=== PATIENT | female | born 1950 | race Caucasian/White ===

== ENCOUNTER → 2021-03-19 | Outpatient (CLI) | payer MEDICARE, SELFPAY ==
[2015-06-16 08:20] VITALS: BMI 34.0
== END | disposition home or self-care (01) ==
PROVIDERS: PCP Family Medicine; Visit Provider Obstetrics & Gynecology
DX: R30.0 Dysuria (principal); R31.9 Hematuria, unspecified
CPT/HCPCS: 87077; 87086; 87088; 87186

== ENCOUNTER → 2021-04-15 | Outpatient (CLI) | payer MEDICARE, SELFPAY | END | disposition home or self-care (01) | LOC: LABSPEC 13:36 | PROVIDERS: Visit Provider Obstetrics & Gynecology | DX: N39.0 Urinary tract infection, site not specified (principal) | CPT/HCPCS: 87086; 87088 ==

== ENCOUNTER → 2021-10-16 13:27 | Outpatient (CLI) | payer MEDICARE, SELFPAY ==
--- NOTE | 2021-10-16 13:39 | STEWCON_ITS ---
Reason For Study: Pre-op. Multiple cardiac risk factors, hypertension Stress Results Protocol: Dobtuamine Stress Echo Maximum Predicted HR: 147 bpm Target HR: 125 bpm % Maximum Predicted HR: 105 % Heart Stage Duration Rate BP Dose Comment (mm:ss) (bpm) patient denies chest pain, 5ml total definity given during Baseline 63 141/78 this test Stage 1 3:00 65 166/8710.00patient denies chest pain Stage 2 7:12 80 165/8020.00patient denies chest pain Stage 3 3:00 86 182/7330.00patient denies chest pain atropine 0.5ml given. Patient denies chest pain or Stage 4 8:53 155 142/8940.00palpitations recovery 88 137/71 patient denies any chest pain or palpitations Stress Duration: 22:05 mm:ss Maximum Stress HR: 155 bpm Baseline Echocardiogram Findings Stress Echo Wall motion Data Resting WM Intermediate WM Stress WM ECHO/Stress Test Echo W/Contrast Interpretation Summary Dobutamine stress echocardiogram for preop cardiac evaluation. Stress protocol: Resting EKG demonstrates normal sinus rhythm with a rate of 63 bpm normal inter vals are noted resting blood pressure is 144/96 mmHg. Dobutamine was infused starting at 10 mc g/kg/min increasing in 3-minute aliquots to a peak of 40 mcg/kg/min. 0.5 mg of atropine was given t o augment heart rate. The patient maintained sinus rhythm throughout the recording. At rest there wer e no ST or T wave changes noted to suggest ischemia. At peak infusion there was a 10 beat run of a wide-complex tachycardia noted followed by a 4 beat run. The above was asymptomatic. The ines t was terminated and there were occasional short runs of nonsustained wide-complex tach arrhythmia n oted. There were no obvious EKG changes noted to suggest ischemia. The peak blood pressure was 182/ 73 mmHg. Dobutamine stress echocardiogram. The resting echocardiogram was performed with Definity enhancement and demonstrated preserved left ventricular ejection fraction estimated at 60%. At low-dose and at peak dose there was augmentation and contractility with improvement in all segm ents with no new wall motion abnormalities noted to suggest ischemia. During recovery the left ventri cular systolic function was also noted to be normal. The peak ejection fraction was 70%. Conclusion: Normal dobutamine stress echocardiogram with no evidence of ischemia. Nonsustained ventricular tachyarrhythmia noted self terminating. Ordering Physician: Cayden Reyes Referring Physician: Cayden Reyes Performed By: Delmar Mai RCS
== END ==
PROVIDERS: PCP Student in an Organized Health Care Education/Training Program; Referring Provider Student in an Organized Health Care Education/Training Program; Visit Provider Student in an Organized Health Care Education/Training Program
DX: Z01.818 Encounter for other preprocedural examination (principal); I10 Essential (primary) hypertension; R94.31 Abnormal electrocardiogram [ECG] [EKG]
CPT/HCPCS: 93017; 93350; J7040; Q9957; A4216; C8928; J3490

== ENCOUNTER → 2021-11-05 11:14 | Outpatient (CLI) | payer MEDICARE, SELFPAY ==
--- NOTE | 2021-11-05 | CYSPIN_PTH ---
PATIENT: SURINDER RASHEED LOC: [facility] U#:[id number] AGE/SX: 75/F ROOM: RE11/05/[address]: Dr. Amy Keller MD : 1950 BED: DIS: SPEC #: [id number] RECD: 11/06/21 08:25 STATUS: ESTHER HORACIO #: [id number] ROMARIO: 11/05/21 00:[address]: Amy Keller DEPT: CYTOLOGY RECD BY: Trenton Sosa ENTERED: 11/06/21 08:26 SP TYPE: CYSPIN FL OTHR DR: Dr. Cayden Reyes DO Tissues: Urine Procedures: Pap Stain (control) Special Stain Group II Cytospin Fluid HEADER OPERATION: Not noted PRE-OP DIAGNOSIS: Gross hematuria TISSUE SUBMITTED: Urine for cytology DIAGNOSIS CYTOLOGY Urine for cytology (cytospin): Atypical urothelial cells present. AM:loree 11/06/2021 CYTOLOGY STUDY Slides are reviewed. CYTOLOGY GROSS Received is 15 ml of red cloudy fluid labeled with the patient's name and and designated per the requisition as urine. Submitted for cytology preparation. / loree 11/05/2021 TC:? CPT: 08588
[2021-11-05 15:05] LABS: Hematocrit 36.3 % (37-47); Hemoglobin 12.1 g/dL (12.0-15.0); Mean Corp Hgb Conc 33.3 g/dL (32-36); Mean Corpuscular Hgb 32.1 pg (27.0-32.0); Mean Corpuscular Volume 96.3 fL (81-99); Mean Platelet Vol. 9.9 fl (6.2-12.0); Platelet Count 238 K/mm3 (150-450); RBC Distribution Width CV 12.7 % (11.6-14.6); RBC Distribution Width SD 44.9 fl (35.1-43.9); Red Blood Count 3.77 M/mm3 (4.2-5.4); White Blood Count 4.4 K/mm3 (4.4-11.0)
[2021-11-05 15:27] LABS: Anion Gap 8 (5-15); BUN 8 mg/dL (7-18); BUN/Creat Ratio 11.3 RATIO (10-20); Calcium,Total 9.6 mg/dL (8.5-10.1); Chloride 104 mmol/L (98-107); Creatinine, Serum 0.71 mg/dL (0.55-1.02); EST Glomerular Filtration Rate 86 mL/min (>60); Est Glom Filt Rate - Afr Amer 104 mL/min (>60); Glucose 97 mg/dL (74-106); Potassium 3.5 mmol/L (3.5-5.1); Sodium Level 139 mmol/L (136-145)
[2021-11-05 16:13] LABS: Cytology, Body Fluid / CSF SEE PATHOLOGY REPORT
== END ==
PROVIDERS: PCP Student in an Organized Health Care Education/Training Program; Referring Provider Urology; Visit Provider Urology
DX: R31.0 Gross hematuria (principal)
CPT/HCPCS: 36415; 80048; 85027; 88108; 88313

== ENCOUNTER 2022-01-07 14:12 | Outpatient (CLI) | payer MEDICARE, SELFPAY ==
--- NOTE | 2022-01-07 14:17 | US_ITS ---
History: GROSS HEMATURIA EXAMINATION: US Kidney(s) complete (eg, kidneys and bladder) TECHNIQUE: Hong scale and color doppler images were obtained of the kidneys. COMPARISON: None FINDINGS: RIGHT KIDNEY: 10.8 cm in length. Renal stones and cysts are noted. A 4 cm cyst within the upper pole as well as 2 cm interpole cyst. No hydronephrosis. LEFT KIDNEY: 10.6 cm in length. Multiple stones without hydronephrosis. 15 and 12 mm cysts within the interpole region of the kidney. URINARY BLADDER: Contracted US/Kidney and Bladder IMPRESSION: Bilateral nephrolithiasis. Bilateral renal cysts. at 1546 Reported and signed by: Masood Gutierrez MD Electronically Signed: Masood Gutierrez MD at 15:44 EST ,
== END 2022-01-07 23:59 | disposition home or self-care (01) ==
LOC: US 14:13
PROVIDERS: PCP Student in an Organized Health Care Education/Training Program; Referring Provider Urology; Visit Provider Urology
DX: R31.0 Gross hematuria (principal); R93.429 Abnormal radiologic findings on diagnostic imaging of unspecified kidney
CPT/HCPCS: 76770

== ENCOUNTER 2022-01-13 14:47 | Outpatient (CLI) | payer MEDICARE, SELFPAY ==
--- NOTE | 2022-01-13 14:53 | CT_ITS ---
STUDY: CT ABDOMEN AND PELVIS WITH AND WITHOUT CONTRAST REASON FOR EXAM: Female, 72 years old. Hematuria. RADIATION DOSAGE (If Supplied By Facility): CTDIvol = ( 17.31 ) mGy, DLP = ( 2135.55 ) mGycm TECHNIQUE: Transaxial images were obtained from the dome of the diaphragm to the symphysis pubis without oral contrast. IV 100mL Isovue-300 was administered. Sagittal and coronal images were reconstructed. Individualized dose optimization techniques were used for this CT. COMPARISON: Retroperitoneal ultrasound, 01/07/2022. FINDINGS: The visualized lung bases are unremarkable. The visualized portions of the heart are within normal limits. Normal liver. Normal gallbladder and extrahepatic biliary system. Normal spleen. Normal pancreas. Normal bilateral adrenal glands. There is a 4 x 3.1 x 3.6 cm cyst in the upper pole. There is exophytic 1.8 cm cyst in the mid cortex. There is a staghorn calculus in the renal pelvis extending into the lower pole calyces measuring 4.7 x 1.7 x 0.9 cm. Additionally other calcifications are seen in mid and lower pole calyces. There is no hydronephrosis. Normal visualized right ureter. The left kidney is of normal size and cortex. There is a 1.2 x 1.2 x 1.6 cm calcification in the renal pelvis. Smaller calcifications are seen in the lower pole calyx. No hydronephrosis. Normal left ureter Normal visualized stomach. Normal small intestine. Normal colon. The appendix is visualized and appears normal. There is diffuse atherosclerotic calcification of the abdominal aorta, without a demonstrated aneurysm. Normal inferior vena cava. Normal retroperitoneum. Normal urinary bladder. Normal vaginal cough. There is phlebolith in the pelvis without lymphadenopathy. Minimal free fluid in the posterior cul-de-sac. No free air is seen within the peritoneal cavity. Normal abdominal wall. Minimal degenerative changes of the lumbar spine. CT/CT Abd/Pelvis W/WO Contrast IMPRESSION: 1. Bilateral large renal calculi without hydronephrosis. There is no evidence of ureteral or urinary bladder abnormality. 2. Right renal cysts. 3. Evidence of hysterectomy. 4. Otherwise normal CT of the abdomen and pelvis. Electronically Signed: Jeet Alford DO at 16:12 EST ,
[2022-01-13 15:26] LABS: CREATININE FINGERSTICK 1.1 mg/dL (0.55-1.02)
== END 2022-01-13 23:59 | disposition home or self-care (01) ==
LOC: CT 14:48
PROVIDERS: PCP Student in an Organized Health Care Education/Training Program; Referring Provider Urology; Visit Provider Urology
DX: R31.9 Hematuria, unspecified (principal); N20.0 Calculus of kidney
CPT/HCPCS: 74178; Q9967

== ENCOUNTER 2022-03-05 08:04 | Outpatient (CLI) | payer MEDICARE, SELFPAY ==
--- NOTE | 2022-03-05 08:06 | ECHOD_ITS ---
Reason For Study: Arrhythmia Procedure This was a 2D Doppler, Color Flow transthoracic echocardiogram. Very technically difficult study due to patients body habitus. The study was technically difficult. Exam performed in department. Left Ventricle Normal LV size. Left ventricular systolic function is normal. The estimated ejection fraction is 60 %. No evidence for diastolic dysfunction. No regional wall motion abnormalities noted. Right Ventricle Normal RV size. Normal systolic function. Atria Normal left atrium. Normal right atrium. No doppler evidence for ASD. Mitral Valve There is mild mitral annular calcification. Extension of the mitral annular calcification on the base of the posterior mitral valve leaflet. Mild-Moderate (1-2+) mitral valve insufficiency. Tricuspid Valve Normal tricuspid valve. Mild tricuspid valve insufficiency. Right ventricular systolic pressure estimated to be 31 mmHg. Aortic Valve Trisinus/trileaflet aortic valve. Mild focal aortic valve calcification. Mild (1+) aortic valve insufficiency. Pulmonic Valve The pulmonic valve is not well visualized. Great Vessels Normal sized aortic root. Pericardium/Pleural No pericardial effusion. MMode/2D Measurements & Calculations LVIDd: 5.3 cm IVSd: 0.93 cm Ao root diam: 3.4 cm LVIDs: 3.7 cm LVPWd: 1.1 cm RVDd: 3.4 cm FS: 30.2 % LAV(MOD-sp2): 61.1 ml Time Measurements MV dec time: 0.28 sec Doppler Measurements & Calculations MV E max cuate: 70.1 cm/sec Lat Peak E' Cuate: 6.8 cm/sec Med Peak E' Cuate: 3.8 cm/sec MV A max cuate: 98.1 cm/sec E/E' lat: 10.2 E/E' med: 18.4 MV E/A: 0.71 MV V2 max: 101.1 cm/sec MV P1/2t max cuate: 72.2 cm/sec Ao V2 max: 103.6 cm/sec MV max P.1 mmHg MV P1/2t: 127.1 msec Ao max P.3 mmHg MV V2 mean: 52.6 cm/sec MV mean P.3 mmHg MV dec slope: 166.4 cm/sec2 MV V2 VTI: 29.6 cm MVA(P1/2t): 1.7 cm2 LV V1 max: 79.6 cm/sec MR max cuate: 519.4 cm/sec PA V2 max: 93.4 cm/sec LV V1 max P.5 mmHg MR max P.9 mmHg TR max cuate: 265.8 cm/sec TR max P.3 mmHg ECHO/Echo Complete Interpretation Summary The study was technically difficult. Left ventricular systolic function is normal. The estimated ejection fraction is 60 %. There is mild mitral annular calcification. Extension of the mitral annular calcification on the base of the posterior mitr al valve leaflet. Mild-Moderate (1-2+) mitral valve insufficiency. Mild tricuspid valve insufficiency. Mild focal aortic valve calcification. Mild (1+) aortic valve insufficiency. Right ventricular systolic pressure estimated to be 31 mmHg. No evidence for diastolic dysfunction. Ordering Physician: Yunior Gaviria Referring Physician: Cayden Reyes Performed By: Delmar Mai RCS
== END 2022-03-05 23:59 | disposition home or self-care (01) ==
PROVIDERS: PCP Student in an Organized Health Care Education/Training Program; Referring Provider Internal Medicine Cardiovascular Disease; Visit Provider Internal Medicine Cardiovascular Disease
DX: Z01.810 Encounter for preprocedural cardiovascular examination (principal); I10 Essential (primary) hypertension; I49.9 Cardiac arrhythmia, unspecified; E78.2 Mixed hyperlipidemia; Z82.49 Family history of ischemic heart disease and other diseases of the circulatory system
CPT/HCPCS: 93225; 93226; 93306

== ENCOUNTER 2022-12-22 16:12 | Inpatient (IN) | payer MEDICARE, SELFPAY ==
[2022-12-22 16:17] VITALS: BP 112/76; PULSE 71; RESP 18; TEMP 36.6; O2SAT 96; BMI 23.8
[2022-12-22 18:00] VITALS: RESP 16
[2022-12-22] MEDS: APIXABAN 2.5 MG TABLET (WCH) PO (18:14)
--- NOTE | 2022-12-22 19:01 | HP.PCM_ITS ---
HPI - General General Date of Admission: 12/22/22 Date of Service: 12/22/22 Chief Complaint: Here for rehabilitation. HPI Narrative SURINDER RASHEED, is a 72 Female who presents with followin12/20/2022 Dr. Nicholson performed robot assisted right total knee arthroplasty at [facility]. 12/22/2022 Admit to TCU with debility, here for rehabilitation, strengthening, prior to discharge home alone. Her son Rishi is present in room during my visit. [facility] Medical History (Updated 12/22/22 @ 19:[address] Shant Guevara MD) Cardiac dysrhythmia Essential hypertension Family history of coronary artery disease Hypothyroidism Knee osteoarthritis Mixed hyperlipidemia Valvular heart disease Home Medications lorazepam 0.5 mg tablet 0.5 mg PO BID anxiety 06/10/15 [History Last Taken Unknown] acetaminophen 325 mg tablet 325 mg PO ONCE PRN 12/30/21 [History Last Taken Unknown] levothyroxine 112 mcg tablet 112 mcg PO DAILY thyroid 12/30/21 [History Last Taken Unknown] losartan 25 mg tablet 50 mg PO DAILY BP 12/30/21 [History Last Taken Unknown] ondansetron 4 mg disintegrating tablet 4 mg PO Q6H PRN nausea and vomiting 12/30/21 [History Last Taken Unknown] atenolol 25 mg tablet 25 mg PO DAILY BP 06/10/22 [History Last Taken Unknown] amlodipine 5 mg tablet 5 mg PO DAILY BP 12/22/22 [History Last Taken Unknown] apixaban 2.5 mg tablet 2.5 mg PO BID blood thinner 12/22/22 [History Last Taken Unknown] tramadol 50 mg tablet 50 mg PO Q6H PRN PRN Pain 12/22/22 [History Last Taken Unknown] Allergy/AdvReac Type Severity Reaction Status Date / Time prednisone Allergy Rash Verified 12/15/22 11:24 cyclobenzaprine AdvReac Unknown Irregular Verified 12/15/22 11:24 [From Flexeril] Heartbeat lisinopril AdvReac Unknown Cough Verified 12/15/22 11:24 hydrocodone bitartrate AdvReac Other Verified 12/15/22 11:24 [From Vicodin] promethazine AdvReac Other Verified 12/15/22 11:24 Yupgkdh-GYE-UwL Reductase AdvReac Pain in Verified 12/15/22 11:24 Inhibitor joints [Gunrujs-Pnv-Ija Reductase Inhibitor] Family History Father Heart disease Brother Heart disease Surgical History (Updated 12/22/22 @ 19:[address] Shant Guevara MD) H/O lithotripsy History of hysterectomy History of total right knee replacement Social History (Updated 12/22/22 @ 19:[address] Shant Guevara MD) household members: none Smoking Status: Never smoker alcohol intake: never substance use type: does not use caffeine: Yes ROS Constitutional Constitutional: Denies chills, fever(s) or weight gain ENT HEENT: Denies headache(s), nasal congestion or nasal discharge Cardiovascular Cardiovascular: Denies chest pain or palpitations Respiratory/Chest Respiratory/Chest: Denies cough, excessive phlegm production or shortness of breath with exertion Gastrointestinal Gastrointestinal: Denies abdominal pain, nausea or vomiting Genitourinary Genitourinary: Denies dysuria Musculoskeletal Musculoskeletal: Denies joint pain or joint swelling Integumentary Integumentary: Denies rash or wounds Neurologic Neurologic: Denies focal weakness, numbness or tingling Psychiatric Psychiatric: Denies anxiety, auditory hallucinations, depression, homicidal ideation or suicidal ideation Vital Signs Vital Signs Vital Signs: 12/22/22 16:17 12/22/22 16:17 Temperature 97.9 F 97.9 F Temperature Source Oral Temporal Pulse Rate 71 71 Respiratory Rate 18 18 Blood Pressure 112/76 112/76 Blood Pressure Mean 88 88 Blood Pressure Source Monitor Monitor Blood Pressure Position Sitting Sitting Blood Pressure Location Left Arm Left Arm Pulse Ox 96 Oxygen Delivery Method Room Air Room Air Physical Exam Const alert General Appearance: cooperative HEENT normocephalic Eyes PERRL and EOMs intact bilaterally Neck supple, no JVD and no carotid bruits Resp normal respiratory effort, normal air movement and clear to auscultation bilaterally Cardio regular rate and regular rhythm GI normal to inspection, nondistended, normoactive bowel sounds, non-tender and non-distended Extremity normal capillary refill General Extremity: Negative for edema Skin no rashes or lesions noted General Skin Exam: no breakdown Psych affect normal Appearance: appropriate Assessment & Plan Assessment/Plan (1) Debility: (2) Status post total right knee replacement: (3) Anxiety: (4) Hypertension: (5) Hypothyroidism: PLAN: Plan 72 year old female with below past medical history hospitalized for robot assisted right total knee arthroplasty 12/20/[address] Nicholson, admitted to TCU with debility, here for rehabilitation, strengthening, prior to discharge home alone. * Debility - PT/OT. * Pain - Tylenol 1000mg q8, Tramadol 50mg q6h prn pain (4-5), Oxycodone 5mg q4h prn pain (6-10). * Bowel - Miralax 17gm daily, senna/colace 2 tablets bid, MOM 30ml po x 1 prn. * Adult immunization - Administer pneumonia vaccine, covid19 vaccine, flu vaccine as appropriate. * DVT prophylaxis - Eliquis 2.5mg bid thru 01/01/2023. * Hypertension - Atenolol 25mg daily, Losartan 50mg daily. * GI prophylaxis - Lactobacillus 1 tablet bid. * Hypothyroidism - Levothyroxine 112mcg daily. * Anxiety - Lorazepam 0.5mg bid prn, stable chronic mcc use, GDR not recommended.
[2022-12-22] MEDS: traMADol 50 MG Tablet PO (19:03)
[2022-12-22] MEDS: LORazepam 0.5 MG Tablet PO (19:47)
[2022-12-22] MEDS: Acetaminophen 500 MG Tablet 1000 MG PO (19:48)
[2022-12-22] MEDS: Senna/Docusate Sodium 1 Tablet 2 TABLET PO (19:48)
[2022-12-23] MEDS: Acetaminophen 500 MG Tablet 1000 MG PO ×3 (05:33→21:13)
[2022-12-23] MEDS: Polyethylene Glycol 3350 17 GM PACKET PO (05:33)
[2022-12-23] MEDS: APIXABAN 2.5 MG TABLET (WCH) PO ×2 (05:34→17:48)
[2022-12-23] MEDS: Senna/Docusate Sodium 1 Tablet 2 TABLET PO ×2 (05:34→17:48)
[2022-12-23] MEDS: Losartan Potassium 50 MG Tablet PO (05:36)
[2022-12-23] MEDS: Atenolol 25 MG Tablet PO (05:36)
[2022-12-23] MEDS: Levothyroxine 112 MCG Tablet PO (05:37)
[2022-12-23] MEDS: amLODIPine 5 MG Tablet PO (05:37)
[2022-12-23 06:15] LABS: Absolute Lymphocyte Count 2.18 X10^3/uL (0.83-4.51); Absolute Neutrophil Count 3.3 X10^3/uL (2.0-7.7); Basophil# 0.04 X10^3/uL; Basophil% 0.6 % (0-1); Eosinophil# 0.08 X10^3/uL; Eosinophils% 1.3 % (0-5); Hematocrit 29.2 % (37-47); Hemoglobin 9.8 g/dL (12.0-15.0); Lymphocyte # 2.18 X10^3/ul (0.83-4.51); Lymphocyte % 34.8 % (19-41); Mean Corp Hgb Conc 33.6 g/dL (32-36); Mean Corpuscular Hgb 32.8 pg (27.0-32.0); Mean Corpuscular Volume 97.7 fL (81-99); Monocyte# 0.64 X10^3/uL; Monocyte% 10.2 % (0-10); NRBC Flagged by Analyzer 0 % (0-5); Neutrophil # 3.31 X10^3/uL (2.7-7.7); Neutrophil % 52.8 % (47-70); Platelet Count 213 K/mm3 (150-450); RBC Distribution Width CV 12.8 % (11.6-14.6); RBC Distribution Width SD 45.5 fl (35.1-43.9); Red Blood Count 2.99 M/mm3 (4.2-5.4); White Blood Count 6.3 K/mm3 (4.4-11.0)
[2022-12-23 06:46] LABS: Anion Gap 10 (5-15); BUN 19 mg/dL (7-18); BUN/Creat Ratio 29.8 RATIO (10-20); Calcium,Total 8.6 mg/dL (8.5-10.1); Chloride 104 mmol/L (98-107); Creatinine, Serum 0.64 mg/dL (0.55-1.02); EST Glomerular Filtration Rate 97 mL/min (>60); Est Glom Filt Rate - Afr Amer 117 mL/min (>60); Estimated Creatinine Clearance 42.62 ml/min; Glucose 94 mg/dL (74-106); Potassium 2.8 mmol/L (3.5-5.1); Sodium Level 138 mmol/L (136-145)
[2022-12-23] MEDS: Potassium Chloride Oral Tablet 20 MEQ 40 MEQ PO (08:27)
[2022-12-23 10:00] VITALS: PULSE 84; RESP 16
--- NOTE | 2022-12-23 10:28 | PCM.PN.DRR ---
TCU RX Drug Regimen Review Subjective: 72 YOF admitted to TCU 12/22/22 after total R-knee surgery at an outside facility. Admitted to TCU for rehabilitation and strengthening prior to discharge home where the patient resides alone. Objective: Allergies prednisone Allergy (Verified 12/15/22 11:24) Rash cyclobenzaprine [From Flexeril] Adverse Reaction (Unknown, Verified 12/15/22 11:24) Irregular Heartbeat lisinopril Adverse Reaction (Unknown, Verified 12/15/22 11:24) Cough hydrocodone bitartrate [From Vicodin] Adverse Reaction (Verified 12/15/22 11:24) Other FLUSHED AND HOT promethazine Adverse Reaction (Verified 12/15/22 11:24) Other PALPITATIONS, FELT LIMP Xgqezrz-MCF-YfP Reductase Inhibitor [Yulvnog-Dgt-Vsi Reductase Inhibitor] Adverse Reaction (Verified 12/15/22 11:24) Pain in joints Current Medications Generic Name Dose Route Start Last Admin Trade Name Freq PRN Reason Stop Dose Admin Acetaminophen 1,000 mg 12/22/22 22:00 12/23/22 05:33 Acetaminophen 500 Mg Tablet PO 1,000 mg Q8 BRENDA Administration Amlodipine Besylate 5 mg 12/23/22 06:00 12/23/22 05:37 Amlodipine 5 Mg Tablet PO 5 mg DAILY BRENDA Administration Apixaban 2.5 mg 12/22/22 18:00 12/23/22 05:34 Apixaban 2.5 Mg Tablet ([facility]) PO 01/01/23 23:59 2.5 mg BID BRENDA Administration Atenolol 25 mg 12/23/22 06:00 12/23/22 05:36 Atenolol 25 Mg Tablet PO 25 mg DAILY BRENDA Administration Lactobacillus Acidophilus 1 tablet 12/22/22 18:00 12/23/22 05:37 Lactobacillus Acidophilus PO 1 tablet BID BRENDA Administration Levothyroxine Sodium 112 mcg 12/23/22 06:00 12/23/22 05:37 Levothyroxine 112 Mcg Tablet PO 112 mcg DAILY BRENDA Administration Lorazepam 0.5 mg 12/22/22 16:49 12/22/22 19:47 Lorazepam 0.5 Mg Tablet PO 0.5 mg BID PRN PRN Administration ANXIETY Losartan Potassium 50 mg 12/23/22 06:00 12/23/22 05:36 Losartan Potassium 50 Mg Tablet PO 50 mg DAILY BRENDA Administration Magnesium Hydroxide 30 ml 12/22/22 19:12 Magnesium Hydroxide 30 Ml Udc PO X1 PRN Constipation Polyethylene Glycol 17 gm 12/23/22 06:00 12/23/22 05:33 Polyethylene Glycol 3350 17 Gm Packet PO 17 gm DAILY BRENDA Administration Potassium Chloride 20 meq 12/23/22 08:00 12/23/22 08:25 Potassium Chloride Oral Tablet 20 Meq PO Not Given DAILYCM BRENDA Senna/Docusate Sodium 2 tablet 12/22/22 20:00 12/23/22 05:34 Senna/Docusate Sodium 1 Tablet PO 2 tablet BID BRENDA Administration Tramadol HCl 50 mg 12/22/22 19:13 Tramadol 50 Mg Tablet PO Q6H PRN PRN Pain Score 1-10 Tuberculin PPD 0.1 ml 12/30/22 10:00 Tuberculin,Purif.Prot.Deriv. 50 Tu/Ml Vial ID 12/30/22 10:01 X1 ONE Problem List (Last Reviewed 12/22/22 @ 19:[address] Shant Guevara MD) Hypothyroidism (Acute) Hypertension (Chronic) Anxiety (Acute) Status post total right knee replacement (Acute) Debility (Acute) Vital Signs Temp Pulse Resp BP Pulse Ox O2 Del Method 97.9 F 71 16 112/76 96 Room Air 12/22/22 16:17 12/22/22 16:17 12/22/22 18:00 12/22/22 16:17 12/22/22 16:17 12/22/22 18:00 Oxygen Delivery Method Room Air Weight: 62.959 kg Body Mass Index (BMI) 23.8 Sodium 138 mmol/L (136-145) 12/23/22 05:19 Potassium 2.8 mmol/L (3.5-5.1) L 12/23/22 05:19 Chloride 104 mmol/L (98-107) 12/23/22 05:19 Carbon Dioxide 24.0 mmol/L (21.0-32.0) 12/23/22 05:19 Anion Gap 10 (5-15) 12/23/22 05:19 BUN 19 mg/dL (7-18) H 12/23/22 05:19 Creatinine 0.64 mg/dL (0.55-1.02) 12/23/22 05:19 Est GFR (MDRD) Af Amer 117 mL/min (>60) 12/23/22 05:19 Est GFR (MDRD) Non-Af 97 mL/min (>60) 12/23/22 05:19 BUN/Creatinine Ratio 29.8 RATIO (10-20) H 12/23/22 05:19 Glucose 94 mg/dL (74-106) 12/23/22 05:19 Assessment/Plan: 1. Pain: Tylenol 1000mg PO Q8h, Tramadol 50mg PO Q6h PRN Pain 1-10. Please continue to monitor for increased/decreased S/S pain, PRN medication usage, oversedation with PRN medication use, renal function. - To date, the patient has not had any PRN medication doses. It appears that the patient's pain control is adequate at this time. 2. DVT Prophylaxis S/P recent surgery: Eliquis 2.5mg PO BID thru 01/01/23. Please continue to monitor H/H (last done 12/23), S/S bleeding/bruising, S/S blood clot given recent surgery. 3. Hypokalemia (K= 2.8 on 12/23): K-Dur 20mEq PO DailyCM. Please continue to monitor K levels and replace as clinically indicated. Please continue to monitor for stomach upset, nausea/vomiting. 4. Hypertension: Norvasc 5mg PO Daily, Atenolol 25mg PO Daily, Losartan 50mg PO daily. Please continue to monitor BP (112/76), pulse (71), renal function (stable), electrolytes. 5. Hypothyroidism: Synthroid 112mcg PO daily. Please continue to monitor Thyroid function, S/S hypothyroidism. Please consider obtain TSH panel on patient, as none is on file upon EMR review, thank you. 6. General Wellness: Acidophilus 1 tab PO BID. 7. Bowel: Miralax 17g PO daily, Senna/Docusate 2 tab PO BID, MOM 30mL PO x1. Please continue to monitor for increased/decreased constipation and/or diarrhea. Assessment/Plan for indications treated with psychotropic medications: 1. Anxiety: Lorazepam 0.5mg PO BID PRN. Please continue to monitor for oversedation, respiratory depression with use. - Of note; pt was initially on medication BID scheduled, now ordered BID PRN. Will continue to monitor use. Medical chart and medication regimen reviewed. The following medication irregularities or issues were identified: 1. Hypothyroidism: Synthroid 112mcg PO daily. Please consider obtain TSH panel on patient, as none is on file upon EMR review, thank you. Date of Note:: 12/23/22
[2022-12-23] MEDS: Tuberculin,Purif.prot.deriv. 50 TU/ML Vial 0.1 ML ID (10:30)
--- NOTE | 2022-12-23 10:40 | NURSING ---
Visual Merchandising Specialist Note; Activity Asset: Alicia Lee is independent in her choice of daily activities. She will watch tv, read, work on word puzzles and visit w/family, friends and clergy.
--- NOTE | 2022-12-23 10:47 | CASEMGMT ---
Social Work Met with patient to complete initial assessment. Introduced self and role. Verified/updated contacts. Discussed code status and MOLST form. MOLST placed in Dr folder. Educated to Count includes the [facility] insurance with [employer] 12/29 and continued stay is not guaranteed with each review. Pt's goal is to return home living at [facility], but would be interested in moving to [place] in the future. Pt is agreeable to have son bring in copy of advanced directives. SW to continue to follow for DC planning. Giselle Joseph, PAPERHANGER SUPERVISOR PASSENGER RATE CLERK
--- NOTE | 2022-12-23 13:00 | DS.PCM_ITS ---
Providers Date of Admission: 12/22/22 Primary Care Physician: Dr. Cayden Reyes DO Reason For Visit: R TOTAL KNEE Diagnosis Discharge Diagnosis (1) Debility: Status: Acute Code(s): R53.81 - Other malaise (2) Status post total right knee replacement: Status: Acute Code(s): Z96.651 - Presence of right artificial knee joint (3) Anxiety: Status: Acute Code(s): F41.9 - Anxiety disorder, unspecified (4) Hypertension: Status: Chronic Code(s): I10 - Essential (primary) hypertension (5) Hypothyroidism: Status: Acute Code(s): E03.9 - Hypothyroidism, unspecified Plan 72 year old female with below past medical history hospitalized for robot assisted right total knee arthroplasty 12/20/[address] Nicholson, admitted to TCU with debility, here for rehabilitation, strengthening, prior to discharge home alone. * Debility - PT/OT. * Pain - Tylenol 1000mg q8, Tramadol 50mg q6h prn pain (4-5), Oxycodone 5mg q4h prn pain (6-10). * Bowel - Miralax 17gm daily, senna/colace 2 tablets bid, MOM 30ml po x 1 prn. * Adult immunization - Administer pneumonia vaccine, covid19 vaccine, flu vaccine as appropriate. * DVT prophylaxis - Eliquis 2.5mg bid thru 01/01/2023. * Hypertension - Atenolol 25mg daily, Losartan 50mg daily. * GI prophylaxis - Lactobacillus 1 tablet bid. * Hypothyroidism - Levothyroxine 112mcg daily. * Anxiety - Lorazepam 0.5mg bid prn, stable chronic senior living use, GDR not recommended. Medications at Discharge Home Medications lorazepam 0.5 mg tablet 0.5 mg PO BID anxiety 06/10/15 levothyroxine 112 mcg tablet 112 mcg PO DAILY thyroid 12/30/21 losartan 25 mg tablet 50 mg PO DAILY BP 12/30/21 atenolol 25 mg tablet 25 mg PO DAILY BP 06/10/22 amlodipine 5 mg tablet 5 mg PO DAILY BP 12/22/22 acetaminophen 500 mg tablet 1,000 mg PO Q8 #0 tabs 12/23/22 acidophilus 25 million cell-pectin, citrus 100 mg tablet 1 tab PO BID #0 tabs 12/23/22 apixaban 5 mg tablet (Eliquis) 2.5 mg PO BID 9 days #9 tabs 12/23/22 potassium chloride 20 mEq tablet,extended release(part/cryst) (Klor-Con M) 20 meq PO DAILYCM 30 days #30 tabs 12/23/22 sennosides 8.6 mg-docusate sodium 50 mg tablet (Stool Softener-Stimulant Laxative) 2 tab PO BID 30 days #120 tabs 12/23/22 Hospital Course Operations total knee replacement (Right.) Procedures None Summary of Care Provided Minutes Spent on Discharge: 35 Hospital Course: 72 year old female with below past medical history hospitalized for robot assisted right total knee arthroplasty 12/20/[address] Nicholson, admitted to TCU with debility, here for rehabilitation, strengthening, prior to discharge home alone. Discharge to [facility] 12/23/2022, [facility] PT/OT/ST/SN. Physical Exam Const alert General Appearance: cooperative HEENT normocephalic Eyes PERRL and EOMs intact bilaterally Neck supple, no JVD and no carotid bruits Resp normal respiratory effort, normal air movement and clear to auscultation bilaterally Cardio regular rate and regular rhythm GI normal to inspection, nondistended, normoactive bowel sounds, non-tender and non-distended Extremity normal capillary refill General Extremity: Negative for edema Skin no rashes or lesions noted General Skin Exam: no breakdown Psych affect normal Appearance: appropriate Weight / BMI Weight Weight: 62.959 kg Body Mass Index (BMI) 23.8 ABG / Lab / Microbiology Data Result Diagrams: 12/23/22 05:19 12/23/22 05:19 Laboratory: Laboratory Results - last 24 hr 12/23/22 05:19: WBC 6.3, RBC 2.99 L, Hgb 9.8 L, Hct 29.2 L, MCV 97.7, MCH 32.8 H , MCHC 33.6, RDW Std Deviation 45.5 H, RDW Coeff of Wilfred 12.8, Plt Count 213, MPV 10.0, Immature Gran % (Auto) 0.300, Neut % (Auto) 52.8, Lymph % (Auto) 34.8, [place] % (Auto) 10.2 H, Eos % (Auto) 1.3, Baso % (Auto) 0.6, Absolute Neuts (auto) 3.3, Absolute Lymphs (auto) 2.18, Nucleated RBC % 0 12/23/22 05:19: Sodium 138, Potassium 2.8 L, Chloride 104, Carbon Dioxide 24.0, Anion Gap 10, BUN 19 H, Creatinine 0.64, Estim Creat Clear Calc 42.62, Est GFR (MDRD) Af Amer 117, Est GFR (MDRD) Non-Af 97, BUN/Creatinine Ratio 29.8 H, Glucose 94, Calcium 8.6 Microbiology: Microbiology 12/22/22 20:10 Nasal Secretion SARS-CoV-2 Antigen (Rapid) - Final D/C Instructions Discharge Diet: No restrictions Discharge Activity: Return to Normal Activity, May Shower and Use Walker Weight Bearing Status: Weight bearing as tolerated Call your doctor if you observe: Fever of 101 or Higher, Inability to urinate, Inability to have a bowel movement, Shortness of breath, Dizziness, Fainting spells, Swelling in the ankles, Chest pain and Uncontrolled pain Additional Instructions: Discharge to [facility] 12/23/2022, [facility] PT/OT/ST/SN. Meaningful Use Info Meaningful Use Diagnoses (Choose all that apply): None applicable Discharge Plan Admission Admit Date/Time: 12/22/22 16:12 Primary Reason for Your Visit: Debility. Attending Provider: Shant Guevara Chi Primary Care Provider: Cayden Reyes Instructions Additional Instructions / Restrictions: Discharge to [facility] 12/23/2022, [facility] Care PT/OT/ST/SN. Discharge Orders/Prescriptions Prescriptions: New Eliquis 5 mg Tablet 2.5 mg PO BID 9 Days Qty: 9 0RF sennosides-docusate sodium [Stool Softener-Stimulant Laxat] 8.6-50 mg Tablet 2 tab PO BID 30 Days Qty: 120 0RF acetaminophen 500 mg Tablet 1,000 mg PO Q8 Qty: 0 0RF potassium chloride [Klor-Con M20] 20 mEq Tablet,Er Particles/Crystals 20 meq PO DAILYCM 30 Days Qty: 30 0RF acidophilus-pectin, citrus 25 million cell -100 mg Tablet 1 tab PO BID Qty: 0 0RF Continued levothyroxine 112 mcg tablet 112 mcg PO DAILY losartan 25 mg tablet 50 mg PO DAILY atenolol 25 mg tablet 25 mg PO DAILY Label Comments: BLOOD PRESSURE lorazepam 0.5 MG tablet 0.5 mg PO BID Label Comments: ANXIETY amlodipine 5 mg tablet 5 mg PO DAILY Discontinued acetaminophen 325 mg tablet 325 mg PO ONCE PRN ondansetron 4 mg tablet,disintegrating 4 mg PO Q6H PRN (Reason: nausea and vomiting) tramadol 50 mg Tablet 50 mg PO Q6H PRN PRN (Reason: Pain) apixaban 2.5 mg Tablet 2.5 mg PO BID Referrals / Follow Up: Cayden Reyes DO [Primary Care Provider] - Disposition Disposition (needs filled in before D/C Order can be placed): Home Health Service
[2022-12-23 13:13] VITALS: BP 118/71; PULSE 74; RESP 18; TEMP 36.4; O2SAT 97
--- NOTE | 2022-12-23 13:39 | CASEMGMT ---
Social Work Notified by ST and nursing that pt is not cooperating with care and is becoming adamant about discharging home today. SW and JOINER presented to pt room. SW spoke with pt about request to DC today. Pt stated she is moving around well, isn't in any pain, and doesn't need to be here anymore. SW provided supportive listening. Educated to the goal of DC is to ensure the pt is safe and has the assistance needed. SW inquired about pt's goal admitting to TCU. Pt stated, I came here because that's what everyone else does and that's what I thought I should do. SW pointed out that most pts from surgery do admit to rehab because it is beneficial. Pt stated I'm not arguing it isn't beneficial, I just don't feel like I need it. SW explained this worker will speak with son about his view on pt discharging. However, SW explained concerned about ability to make decisions and encourages pt to complete evaluation with ST. Pt continued to adamantly refuse ST, despite repeating she cannot remember things. SW explained pt scored 7/15 on BIMS and that indicates severe cognitive impairment, suggesting a POA/NOK should assist in decision-making. Again, suggested to complete ST evaluation that is more detailed to show if cognitive impairment is present. Pt refused. SW continues to reiterate safety at DC and wants to speak with son to get a baseline. Pt agreed to await this worker's conversation with son. SW spoke with son and explained above. Son aware pt wants to go home. SW inquired about baseline cognition, decision-making and to compare that to current state of pt. Son explained he sees no changes to pt, but does acknowledge there is concern about pt's short-term memory. Son explains pt can remember long-term information, but not short-term. Son states she turned out just like her mother. Strong-willed, independent, and controlling, and she swore she would never be like that. But she can get mean. Not abusive mean, but mean if she doesn't get her way. Son explains he is assuming pt is not liking the policies/rules in TCU, not being able to get up on her own, take her own medication, etc. SW inquired about pt independently completing her own meds and finances at home. Son stated she hasn't given me a reason that things weren't going well. SW suggested checking in on pt more often, supervising meds and finances, as things may have changed, and to ensure things are still going well. Educated to difference between loss of independence and control vs cognitive impairment and signs of Alzheimer's. Educated to change in environment and 'covering up' memory loss. SW explained pt was interested in moving to [place], and IDT agrees that would be beneficial. Son agreed. Son expressed understanding to all information and appreciative of this worker. Son agreed to transport pt home today. SW agreed for DC as well as there is not an acute change in mental status, this appears to be baseline, and pt is physically doing well. SW offered to coordinate skilled HHC. Son thinks pt will agree to HHC, and appreciative of service. SW spoke with Dr and YOVANNY on son agreement to DC today. SW spoke with pt to update on conversation with son. Son agreeable for pt to DC today. SW educated to skilled HHC. Pt agreeable and looking forward to services, stating I probably should've just started with that. Pt expressed appreciation of this worker for speaking with son, listening to her and coordinating HHC services. Pt has no preference of skilled HHC agency and denied to review list. SW offered [facility], pt agreeable. Nursing expressed concern about knee looking swollen and wanting follow up to prevent blood clot. SW phoned referral to [facility] for PT/OT/ST/SN. No DME needs. Son to transport. Plan: DC home alone 12/23 to [facility] PT/OT/ST/SN HANNAH Galaviz
--- NOTE | 2022-12-23 14:11 | CASEMGMT ---
Social Work BIMS (06/11) and PHQ-9 (02/21) completed for MDS assessment. Giselle Joseph MSW RECONCILER
[2022-12-23] MEDS: Bisacodyl 10 MG Suppository RC (14:38)
--- NOTE | 2022-12-23 15:06 | CASEMGMT ---
Addendum entered by Giselle Joseph 12/23/22 16:08: Updated [facility]. [facility] Original Note: Social Work Notified by CAN CAPPER that son has arrived to DC pt and now pt is changing her mind and wanting to stay. SW presented to pt room where RN, CAN CAPPER, son and dtr were present. SW inquired to pt on change of decision. Pt explained I keep hearing people say leaving isn't a good decision and I don't want to make people upset, so I'll stay. SW redirected that is it pt's choice and to not do something based on how other people feel. However, IDT and family still standby recommendation to remain for further therapy and nursing care. Pt stated she agrees to stay and do what you say so I can get better. SW appreciative of agreement, but did explain the goal is for pt to stay for at least several more days with solid treatment sessions, and then DC can be discussed. Pt expressed understanding and agreed she will not change her mind again. SW stated the goals is for nursing to monitor knee, manage pain and bowels, ST to evaluate for cognition, PT/OT to strength. Pt reluctantly agreed to participate in ST after further explanation of services. SW encouraged pt to still express wishes and allow staff to assist pt. Pt agreed. SW praised pt for change in decision. SW met with dtr outside of room. Dtr not pleased with the decision of pt discharging and wants pt to remain for more therapy. GARRISON spoke with dtr at length as dtr provided history of pt. In short over the last eh: pt has lost about 100lbs (used to weigh about 230lbs) not on purpose, appetite had diminished; memory had declined; underwent 3 surgeries, not seeing PCP consistently as the Dr retired and pt not agreeing with the new Dr; loss of interest in things, used to be an avid reader; trouble sleeping; dtr noting daily anxiety; pattern of changing her mind, i.e. 'I want to go home but now I want to stay'; son and dtr both report this has been a pattern; changes in environment 'rattle' pt. SW agreed to provide this information to the Dr. Dtr stated Dr. Guevara offered to be pt's PCP but initially pt declined. Dtr and son would like to see pt go into AL. SW answered questions and educated further about AL. SW offered to make referral to [facility] for availability and take this opportunity to transfer pt to AL at [place]. Children agreeable and appreciative of this worker's efforts. SW updated IDT and in [place]. Written communication left for Dr. Guevara. GARRISON to continue to follow. Giselle Joseph, SKIN DRIER CLAM DIGGER
--- NOTE | 2022-12-23 15:54 | CHAPLAIN ---
Type of Pastoral Visit ___ Initial Visit ___ Follow-up Visit ___ On-call Visit ___ General Patient Visit ___ Spiritual Assessment ___ Family Conference ___ Bereavement ___ Rapid Response ___ Code Blue _x__ Other (describe below) Pastoral Care Referral From _x__ Patient ___ Family ___ Nurse ___ Physician ___ Car Shifter ___ Book Packer ___ Other (describe below) Sacrament/Intervention _x__ Active listening ___ Anointing ___ Anglican ___ Bereavement ___ Communion ___ Sirisha exploration ___ ___ Life review ___ Prayer ___ Reconciliation ___ Sacrament of Sick _x__ Supportive presence ___ Wedding ___ Other (describe below) Pastoral Comments came upon room to introduce self and role of anaesthesiologist to this patient; pt is an active referral for spiritual care; several people were in the room while daughter was in hallway; introduced self to daughter; daughter explains that pt is adamant about being discharged and going home to be alone; daughter is upset and concerned that patient is making a bad decision; son of patient is in the room; daughter explains changes in her mother's recent health and mental ability; offered support to daughter; offered to return to see patient another day, assuming that she will stay in TCU and daughter agrees to that support; at end of this discussion inside the room the patient had agreed to stay in TCU;
[2022-12-24] MEDS: LORazepam 0.5 MG Tablet PO ×2 (02:35→20:52)
[2022-12-24 02:52] VITALS: BP 142/76; PULSE 75
--- NOTE | 2022-12-24 03:30 | RAD_ITS ---
EXAM: XR ABDOMEN, 1 VIEW CLINICAL INDICATION: Pain and discomfort to abdomen TECHNIQUE: Frontal supine view of the abdomen/pelvis. This report was created using [employer] report generation technology. COMPARISON: None. FINDINGS: LOWER THORAX: No acute pathology. GASTROINTESTINAL TRACT: Unremarkable. Non-obstructive. No bowel or stomach distention. ORGANS: Unremarkable as visualized. No organomegaly. No abnormal calcifications. BONES/JOINTS: Mild degenerative changes of the hips. SOFT TISSUES: No acute pathology. RAD/Abdomen Single View (Portable) IMPRESSION: No acute findings. Electronically Signed: Ayden Grace MD at 4:58 EST ,
--- NOTE | 2022-12-24 03:44 | NURSING ---
Patient very restless and c/o extreme abdominal pain/ pressure. Patient was given a PRN Ativan 0.5mg @ 0235 which was ineffective. Patient stated that she has a hiatal hernia and that she thinks this is the reason for the pain/ pressure in abdomen. After assessment by this nurse and RN on duty Dr. Guevara was notified and an order was given for a KUB and for Zofran 4mg q8hrs PRN. KUB was completed @0330.
[2022-12-24] MEDS: Ondansetron ODT 4 MG Tablet PO (06:23)
[2022-12-24] MEDS: APIXABAN 2.5 MG TABLET (WCH) PO ×2 (06:23→18:00)
[2022-12-24] MEDS: Losartan Potassium 50 MG Tablet PO (06:23)
[2022-12-24] MEDS: Acetaminophen 500 MG Tablet 1000 MG PO ×3 (06:24→20:53)
[2022-12-24 06:25] LABS: Anion Gap 7 (5-15); BUN 17 mg/dL (7-18); BUN/Creat Ratio 28.6 RATIO (10-20); Calcium,Total 8.7 mg/dL (8.5-10.1); Chloride 105 mmol/L (98-107); Creatinine, Serum 0.59 mg/dL (0.55-1.02); EST Glomerular Filtration Rate 105 mL/min (>60); Est Glom Filt Rate - Afr Amer 127 mL/min (>60); Estimated Creatinine Clearance 42.62 ml/min; Glucose 102 mg/dL (74-106); Potassium 3.1 mmol/L (3.5-5.1); Sodium Level 137 mmol/L (136-145)
[2022-12-24] MEDS: Levothyroxine 112 MCG Tablet PO (06:25)
[2022-12-24] MEDS: Atenolol 25 MG Tablet PO (06:25)
[2022-12-24] MEDS: amLODIPine 5 MG Tablet PO (06:25)
[2022-12-24] MEDS: Senna/Docusate Sodium 1 Tablet 2 TABLET PO (06:25)
[2022-12-24] MEDS: Potassium Chloride Oral Tablet 20 MEQ PO (08:29)
[2022-12-24 08:41] VITALS: PULSE 64; RESP 16; O2SAT 97
[2022-12-24] MEDS: traMADol 50 MG Tablet PO (09:13)
[2022-12-24 14:00] VITALS: BP 122/64; PULSE 74; RESP 16; TEMP 36.1; O2SAT 97
[2022-12-25] MEDS: Senna/Docusate Sodium 1 Tablet 2 TABLET PO (06:31)
[2022-12-25] MEDS: Acetaminophen 500 MG Tablet 1000 MG PO ×3 (06:31→21:21)
[2022-12-25] MEDS: APIXABAN 2.5 MG TABLET (WCH) PO ×2 (06:31→17:32)
[2022-12-25] MEDS: Losartan Potassium 50 MG Tablet PO (06:31)
[2022-12-25] MEDS: Polyethylene Glycol 3350 17 GM PACKET PO (06:32)
[2022-12-25] MEDS: amLODIPine 5 MG Tablet PO (06:32)
[2022-12-25] MEDS: Levothyroxine 112 MCG Tablet PO (06:32)
[2022-12-25] MEDS: Atenolol 25 MG Tablet PO (06:32)
[2022-12-25 06:45] VITALS: BP 129/78; PULSE 75
[2022-12-25] MEDS: Potassium Chloride Oral Tablet 20 MEQ PO ×2 (07:54→17:32)
[2022-12-25 11:26] VITALS: PULSE 69; RESP 16; O2SAT 94
[2022-12-25 14:00] VITALS: BP 135/82; PULSE 72; RESP 16; TEMP 36.6; O2SAT 99
[2022-12-26] MEDS: LORazepam 0.5 MG Tablet PO (00:54)
[2022-12-26] MEDS: amLODIPine 5 MG Tablet PO (05:37)
[2022-12-26] MEDS: Atenolol 25 MG Tablet PO (05:37)
[2022-12-26] MEDS: Losartan Potassium 50 MG Tablet PO (05:37)
[2022-12-26] MEDS: APIXABAN 2.5 MG TABLET (WCH) PO ×2 (05:37→17:25)
[2022-12-26] MEDS: Acetaminophen 500 MG Tablet 1000 MG PO ×3 (05:37→20:47)
[2022-12-26] MEDS: Levothyroxine 112 MCG Tablet PO (05:37)
[2022-12-26] MEDS: Menthol/Lanolin/Calamine/Znox 113 GM Tube 1 APPLIC TOPICAL ×2 (05:38→17:29)
[2022-12-26 05:44] VITALS: BP 141/81; PULSE 83; RESP 18; O2SAT 96
[2022-12-26 07:16] LABS: Anion Gap 8 (5-15); BUN 14 mg/dL (7-18); BUN/Creat Ratio 24.6 RATIO (10-20); Calcium,Total 8.9 mg/dL (8.5-10.1); Chloride 107 mmol/L (98-107); Creatinine, Serum 0.57 mg/dL (0.55-1.02); EST Glomerular Filtration Rate 110 mL/min (>60); Est Glom Filt Rate - Afr Amer 133 mL/min (>60); Estimated Creatinine Clearance 42.62 ml/min; Glucose 104 mg/dL (74-106); Potassium 3.4 mmol/L (3.5-5.1); Sodium Level 139 mmol/L (136-145)
[2022-12-26] MEDS: Potassium Chloride Oral Tablet 20 MEQ PO (08:23)
[2022-12-26] MEDS: Mag Hydrox/Al Hydrox/Simeth 30 ML UDC 15 ML PO (12:44)
[2022-12-26 14:00] VITALS: BP 127/81; PULSE 68; RESP 16; TEMP 36.8; O2SAT 96
--- NOTE | 2022-12-26 15:02 | NURSING ---
pt c/o indigestion after lunch, asking for something. dr ellis updated, new order for mylanta PRN. pt assisted to BR then back to bed.
[2022-12-26] MEDS: Ondansetron ODT 4 MG Tablet PO (17:27)
[2022-12-26] MEDS: traMADol 50 MG Tablet PO (19:01)
[2022-12-27] MEDS: LORazepam 0.5 MG Tablet PO ×2 (02:04→22:50)
[2022-12-27] MEDS: Senna/Docusate Sodium 1 Tablet 2 TABLET PO ×2 (05:34→17:57)
[2022-12-27] MEDS: Acetaminophen 500 MG Tablet 1000 MG PO ×3 (05:35→19:29)
[2022-12-27] MEDS: Levothyroxine 112 MCG Tablet PO (05:35)
[2022-12-27] MEDS: amLODIPine 5 MG Tablet PO (05:36)
[2022-12-27] MEDS: Atenolol 25 MG Tablet PO (05:36)
[2022-12-27] MEDS: APIXABAN 2.5 MG TABLET (WCH) PO ×2 (05:36→17:57)
[2022-12-27] MEDS: Losartan Potassium 50 MG Tablet PO (05:36)
[2022-12-27 05:41] VITALS: BP 137/73; PULSE 68
[2022-12-27] MEDS: Menthol/Lanolin/Calamine/Znox 113 GM Tube 1 APPLIC TOPICAL ×2 (05:42→17:58)
--- NOTE | 2022-12-27 07:36 | NURSING ---
Surgical mepliex to rt knee dc'ed this am per dr alvarado.
[2022-12-27] MEDS: Potassium Chloride Oral Tablet 20 MEQ PO ×2 (08:27→17:56)
[2022-12-27 14:00] VITALS: BP 148/83; PULSE 69; RESP 16; TEMP 36.7; O2SAT 97
--- NOTE | 2022-12-27 14:55 | NURSING ---
Patient refused to get covid booster. Educated on the vaccine and educational pamphlet given to patient.
[2022-12-27] MEDS: traMADol 50 MG Tablet PO (15:14)
--- NOTE | 2022-12-27 15:20 | CASEMGMT ---
Social Work SW contacted [facility] to follow up on referral. Chief Mechanical Officer is new and did receive the referral, but will have clinical team review and notify this worker. SW to continue to follow. HANNAH GalavizW
--- NOTE | 2022-12-27 15:26 | CHAPLAIN ---
Type of Pastoral Visit _x__ Initial Visit ___ Follow-up Visit ___ On-call Visit ___ General Patient Visit ___ Spiritual Assessment ___ Family Conference ___ Bereavement ___ Rapid Response ___ Code Blue ___ Other (describe below) Pastoral Care Referral From _x__ Patient _x__ Family ___ Nurse ___ Physician ___ Mosaic Technician ___ Pattern Fitter ___ Other (describe below) Sacrament/Intervention _x__ Active listening ___ Anointing ___ Jewish ___ Bereavement ___ Communion ___ Sirisha exploration ___ _x__ Life review _x__ Prayer ___ Reconciliation ___ Sacrament of Sick _x__ Supportive presence ___ Wedding ___ Other (describe below) Pastoral Comments patient is welcoming and very talkative; pt explains her knee situation and that she lives in independent living; pt acknowledges that she may need to make both temporary and correction changes in living arrangement; pt talks much about her life, including both past and recent times; pt at times stops and says that she is unable to remember names or details about something that is being discussed; pt admits that this reality is disturbing to her
[2022-12-28] MEDS: Acetaminophen 500 MG Tablet 1000 MG PO ×3 (04:39→19:56)
[2022-12-28] MEDS: Losartan Potassium 50 MG Tablet PO (04:40)
[2022-12-28] MEDS: APIXABAN 2.5 MG TABLET (WCH) PO ×2 (04:40→17:52)
[2022-12-28] MEDS: amLODIPine 5 MG Tablet PO (04:41)
[2022-12-28] MEDS: Atenolol 25 MG Tablet PO (04:41)
[2022-12-28] MEDS: Levothyroxine 112 MCG Tablet PO (04:41)
[2022-12-28] MEDS: Menthol/Lanolin/Calamine/Znox 113 GM Tube 1 APPLIC TOPICAL ×2 (04:42→17:54)
[2022-12-28 04:43] VITALS: BP 144/84; PULSE 76
[2022-12-28 06:07] LABS: Anion Gap 9 (5-15); BUN 14 mg/dL (7-18); BUN/Creat Ratio 20.6 RATIO (10-20); Calcium,Total 8.8 mg/dL (8.5-10.1); Chloride 108 mmol/L (98-107); Creatinine, Serum 0.68 mg/dL (0.55-1.02); EST Glomerular Filtration Rate 90 mL/min (>60); Est Glom Filt Rate - Afr Amer 109 mL/min (>60); Estimated Creatinine Clearance 42.62 ml/min; Glucose 104 mg/dL (74-106); Potassium 3.7 mmol/L (3.5-5.1); Sodium Level 140 mmol/L (136-145)
[2022-12-28] MEDS: Potassium Chloride Oral Tablet 20 MEQ PO ×2 (07:54→17:51)
[2022-12-28 14:00] VITALS: BP 144/87; PULSE 74; RESP 18; TEMP 36.2; O2SAT 99
--- NOTE | 2022-12-28 14:14 | CASEMGMT ---
Social Work BIMS and PHQ9 interviews completed on this date for MDS assessment. BIMS score 10/12. Pt able to recall 2 of 3 words with cueing. PHQ9 score of /. Pt attributes all mood issues to dx of IBS and medical issues and that she is requiring more medication. Pt denies positive answers on assessment being related to decline in mood. Jyoti Franco, BRICK LAYER
[2022-12-28 20:00] VITALS: PULSE 73; RESP 16
[2022-12-28] MEDS: LORazepam 0.5 MG Tablet PO (23:01)
[2022-12-29] MEDS: Atenolol 25 MG Tablet PO (04:58)
[2022-12-29] MEDS: APIXABAN 2.5 MG TABLET (WCH) PO ×2 (04:58→17:06)
[2022-12-29] MEDS: amLODIPine 5 MG Tablet PO (04:58)
[2022-12-29] MEDS: Acetaminophen 500 MG Tablet 1000 MG PO ×3 (04:58→21:45)
[2022-12-29] MEDS: Levothyroxine 112 MCG Tablet PO (04:58)
[2022-12-29] MEDS: Losartan Potassium 50 MG Tablet PO (04:59)
[2022-12-29] MEDS: Menthol/Lanolin/Calamine/Znox 113 GM Tube 1 APPLIC TOPICAL ×2 (04:59→17:06)
[2022-12-29] MEDS: Potassium Chloride Oral Tablet 20 MEQ PO ×2 (08:04→17:06)
--- NOTE | 2022-12-29 08:25 | NURSING ---
Fast Food Server Note; MDS Complete
[2022-12-29 09:14] VITALS: PULSE 75; RESP 16; O2SAT 98
--- NOTE | 2022-12-29 09:53 | CASEMGMT ---
Social Work Plan of care meeting held. Patient present as well as patient daughter, Rekha. This web content & social media manager communicating that next insurance update is due on 12/29/2022, today with no guarantee of continued stay approval. Patient requesting to discharge to home on 12/30/2022, team agreeable to discharge date on this date and recommending for patient to have continued therapy through outpatient services. Patient is agreeable to outpatient therapy and request for outpatient therapy to be set up through [facility]. Patient son plans to provide transportation to home for patient. Patient reports to have all need durable medical equipment already set up in the home. Patient denies any concerns on returning to Independent Living at [facility]. Rekha reports to be able to assist patient with medication management due to patient cognitive deficits. Proposed discharge date: 12/30/2022 PLAN: Discharge to [facility] with outpatient therapy. Social Work to continue to follow. Jacquelin YOUNG, CESILIA
[2022-12-29] MEDS: traMADol 50 MG Tablet PO (11:15)
[2022-12-29 14:00] VITALS: BP 127/78; PULSE 72; RESP 16; TEMP 36.2; O2SAT 99
[2022-12-29] MEDS: Senna/Docusate Sodium 1 Tablet 2 TABLET PO (17:06)
[2022-12-29] MEDS: LORazepam 0.5 MG Tablet PO (22:00)
[2022-12-30 04:45] VITALS: BP 133/87; PULSE 82
[2022-12-30] MEDS: Levothyroxine 112 MCG Tablet PO (04:46)
[2022-12-30] MEDS: amLODIPine 5 MG Tablet PO (04:46)
[2022-12-30] MEDS: Losartan Potassium 50 MG Tablet PO (04:47)
[2022-12-30] MEDS: Acetaminophen 500 MG Tablet 1000 MG PO ×2 (04:47→13:39)
[2022-12-30] MEDS: Atenolol 25 MG Tablet PO (04:47)
[2022-12-30] MEDS: APIXABAN 2.5 MG TABLET (WCH) PO (04:47)
[2022-12-30] MEDS: Menthol/Lanolin/Calamine/Znox 113 GM Tube 1 APPLIC TOPICAL (04:49)
[2022-12-30 05:37] LABS: Absolute Lymphocyte Count 1.97 X10^3/uL (0.83-4.51); Absolute Neutrophil Count 3.7 X10^3/uL (2.0-7.7); Basophil# 0.03 X10^3/uL; Basophil% 0.5 % (0-1); Eosinophils% 3.1 % (0-5); Hematocrit 30.5 % (37-47); Hemoglobin 10.2 g/dL (12.0-15.0); Lymphocyte # 1.97 X10^3/ul (0.83-4.51); Lymphocyte % 30.3 % (19-41); Mean Corp Hgb Conc 33.4 g/dL (32-36); Mean Corpuscular Hgb 32.7 pg (27.0-32.0); Mean Corpuscular Volume 97.8 fL (81-99); Mean Platelet Vol. 8.5 fl (6.2-12.0); Monocyte# 0.57 X10^3/uL; Monocyte% 8.8 % (0-10); NRBC Flagged by Analyzer 0 % (0-5); Neutrophil # 3.72 X10^3/uL (2.7-7.7); Platelet Count 360 K/mm3 (150-450); RBC Distribution Width CV 13.2 % (11.6-14.6); RBC Distribution Width SD 45.5 fl (35.1-43.9); Red Blood Count 3.12 M/mm3 (4.2-5.4); White Blood Count 6.5 K/mm3 (4.4-11.0)
[2022-12-30 06:05] LABS: Anion Gap 8 (5-15); BUN 11 mg/dL (7-18); Calcium,Total 9.1 mg/dL (8.5-10.1); Chloride 108 mmol/L (98-107); Creatinine, Serum 0.61 mg/dL (0.55-1.02); EST Glomerular Filtration Rate 102 mL/min (>60); Est Glom Filt Rate - Afr Amer 123 mL/min (>60); Estimated Creatinine Clearance 42.62 ml/min; Glucose 109 mg/dL (74-106); Potassium 3.9 mmol/L (3.5-5.1); Sodium Level 139 mmol/L (136-145)
[2022-12-30] MEDS: Potassium Chloride Oral Tablet 20 MEQ PO (08:54)
[2022-12-30 09:24] VITALS: PULSE 73; O2SAT 96
[2022-12-30 13:00] VITALS: BP 115/67; PULSE 78; RESP 16; TEMP 36.1; O2SAT 97
--- NOTE | 2023-01-03 09:56 | MDS.RN ---
Information for the mds was obtained from review of the clinical record, interview of resident, staff, and direct observation of resident's care.
== END 2022-12-30 15:55 | disposition home health service (06) | DRG 561 ==
PROVIDERS: Admitting Provider Family Medicine Geriatric Medicine; PCP Student in an Organized Health Care Education/Training Program; Visit Provider Family Medicine Geriatric Medicine
DX: Z47.1 Aftercare following joint replacement surgery (principal); F02.A0 Dementia in other diseases classified elsewhere, mild, without behavioral disturbance, psychotic disturbance, mood disturbance, and anxiety; E03.9 Hypothyroidism, unspecified; G30.9 Alzheimer's disease, unspecified; E78.2 Mixed hyperlipidemia; F41.9 Anxiety disorder, unspecified; I10 Essential (primary) hypertension; E87.6 Hypokalemia; Z96.651 Presence of right artificial knee joint; Z79.899 Other long term (current) drug therapy; Z79.01 Long term (current) use of anticoagulants; Z79.890 Hormone replacement therapy
CPT/HCPCS: 36415; 74018; 80048; 85025; 87426; 87811; 92507; 92523; 97110; 97116; 97162; 97166; 97530; 97535; 97802

== ENCOUNTER → 2024-03-28 | Outpatient (REF) | payer MEDICARE, SELFPAY ==
[2024-03-28 07:46] LABS: Absolute Lymphocyte Count 2.12 X10^3/uL (0.83-4.51); Absolute Neutrophil Count 1.5 X10^3/uL (2.0-7.7); Basophil# 0.06 X10^3/uL; Basophil% 1.5 % (0-1); Eosinophil# 0.16 X10^3/uL; Eosinophils% 3.9 % (0-5); Hematocrit 39.3 % (37-47); Hemoglobin 13.1 g/dL (12.0-15.0); Lymphocyte # 2.12 X10^3/ul (0.83-4.51); Lymphocyte % 51.5 % (19-41); Mean Corp Hgb Conc 33.3 g/dL (32-36); Mean Corpuscular Hgb 33.2 pg (27.0-32.0); Mean Corpuscular Volume 99.7 fL (81-99); Mean Platelet Vol. 9.6 fl (6.2-12.0); Monocyte# 0.28 X10^3/uL; Monocyte% 6.8 % (0-10); NRBC Flagged by Analyzer 0 % (0-5); Neutrophil # 1.49 X10^3/uL (2.7-7.7); Neutrophil % 36.1 % (47-70); Platelet Count 261 K/mm3 (150-450); RBC Distribution Width CV 13.1 % (11.6-14.6); Red Blood Count 3.94 M/mm3 (4.2-5.4); White Blood Count 4.1 K/mm3 (4.4-11.0)
[2024-03-28 08:02] LABS: Vitamin B12 338 pg/mL (211-911); Vitamin D,25 Hydroxy 11.4 ng/mL
[2024-03-28 08:18] LABS: Anion Gap 2 (5-15); BUN 15 mg/dL (7-18); BUN/Creat Ratio 19.5 RATIO (10-20); Calcium,Total 9.5 mg/dL (8.5-10.1); Chloride 108 mmol/L (98-107); Cholesterol 292 mg/dL (200); Creatinine, Serum 0.77 mg/dL (0.55-1.02); EST Glomerular Filtration Rate 77 mL/min (>60); Est Glom Filt Rate - Afr Amer 94 mL/min (>60); Glucose 98 mg/dL (74-106); High Density Lipoprotein 108 mg/dL; Potassium 3.4 mmol/L (3.5-5.1); Sodium Level 139 mmol/L (136-145); Thyroid Stim Hormone (TSH) 4.24 uIU/mL (0.358-3.74); Triglycerides 97 mg/dL; Very Low Density Lipoprotein 19 mg/dL (5-40)
== END ==
LOC: OLS.SWAL 04:00
PROVIDERS: PCP Student in an Organized Health Care Education/Training Program; Referring Provider Internal Medicine; Visit Provider Internal Medicine
DX: I10 Essential (primary) hypertension (principal); E03.9 Hypothyroidism, unspecified; F32.A Depression, unspecified; E55.9 Vitamin D deficiency, unspecified; E78.5 Hyperlipidemia, unspecified
CPT/HCPCS: 36415; 80048; 80061; 82306; 82607; 84443; 85025

== ENCOUNTER → 2024-04-11 | Outpatient (REF) | payer MEDICARE, SELFPAY ==
[2024-04-11 08:02] LABS: Thyroid Stim Hormone (TSH) 3.92 uIU/mL (0.358-3.74)
== END ==
LOC: OLS.SWAL 05:00
PROVIDERS: PCP Student in an Organized Health Care Education/Training Program; Visit Provider Internal Medicine
DX: E03.9 Hypothyroidism, unspecified (principal)
CPT/HCPCS: 36415; 84443

== ENCOUNTER 2024-05-04 21:10 | Emergency (ER) | payer MEDICARE, SELFPAY ==
[2024-05-04 21:11] VITALS: BP 142/93; PULSE 75; RESP 16; TEMP 35.9; O2SAT 100; BMI 27.3
--- NOTE | 2024-05-04 21:49 | EX.ED.DYSGE1 ---
HPI <JEANNETTE Albarado - Last Filed: 05/04/24 22:02> History of Present Illness Chief Complaint: Rash Narrative Narrative: Patient is a 74-year-old female with history of hypertension hyperlipidemia hypothyroidism who presents to the emergency department with complaints of rash to bilateral lower legs. Patient dates she was getting ready for bed when she noticed her legs were slightly itching. She looked in there were multiple red dots on both of her legs. Patient states that she has no fever or chills. She is not sure what this rash is from. She is here for evaluation. [facility] <JEANNETTE Albarado - Last Filed: 05/04/24 22:02> [facility] Medical History (Updated 05/04/24 @ 23:[address] Matt Verma, DO) Valvular heart disease Cardiac dysrhythmia Knee osteoarthritis Family history of coronary artery disease Hypothyroidism Mixed hyperlipidemia Essential hypertension Home Medications ?Medication ?Instructions ?Recorded ?Last Taken ?Type lorazepam 0.5 mg tablet 0.5 mg PO BID anxiety 06/10/15 Unknown History levothyroxine 112 mcg tablet 112 mcg PO DAILY thyroid 12/30/21 Unknown History losartan 25 mg tablet 50 mg PO DAILY BP 12/30/21 Unknown History atenolol 25 mg tablet 25 mg PO DAILY BP 06/10/22 Unknown History amlodipine 5 mg tablet 5 mg PO DAILY BP 12/22/22 Unknown History acetaminophen 500 mg tablet 1,000 mg (2 x 500 mg) PO Q8 #0 tabs 12/23/22 Unknown Rx acidophilus 25 million 1 tab PO BID #0 tabs 12/23/22 Unknown Rx cell-pectin, citrus 100 mg tablet apixaban 5 mg tablet (Eliquis) 2.5 mg (1/2 x 5 mg) PO BID 9 days 12/23/22 Unknown Rx #9 tabs potassium chloride 20 mEq 20 meq PO DAILYCM 30 days #30 tabs 12/23/22 Unknown Rx tablet,extended release(part/cryst) (Klor-Con M) sennosides 8.6 mg-docusate sodium 2 tab PO BID 30 days #120 tabs 12/23/22 Unknown Rx 50 mg tablet (Stool Softener-Stimulant Laxative) Allergy/AdvReac Type Severity Reaction Status Date / Time prednisone Allergy Rash Verified 05/04/24 21:13 cyclobenzaprine (From AdvReac Unknown Irregular Verified 05/04/24 21:13 Flexeril) Heartbeat lisinopril AdvReac Unknown Cough Verified 05/04/24 21:13 hydrocodone bitartrate (From AdvReac Other Verified 05/04/24 21:13 Vicodin) promethazine AdvReac Other Verified 05/04/24 21:13 Qrdazmi-JCL-ZaF Reductase AdvReac Pain in Verified 05/04/24 21:13 Inhibitor (Hcxadgc-Lry-Fsr joints Reductase Inhibitor) Family History Father Heart disease Brother Heart disease Surgical History (Updated 12/22/22 @ 19:[address] Shant Guevara MD) History of total right knee replacement H/O lithotripsy History of hysterectomy Social History (Updated 12/22/22 @ 19:[address] Shant Guevara MD) household members: none Smoking Status: Never smoker alcohol intake: never substance use type: does not use caffeine: Yes ROS <JEANNETTE Albarado - Last Filed: 05/04/24 22:02> ROS ED ROS Narrative Constitutional: Negative for fever, chills, weight loss, weakness Eyes: Negative for vision loss, vision change, double vision ENT: Negative for any sore throat, ear pain, congestion Cardiovascular: Negative for any chest pain, tightness, palpitations Respiratory: Negative for any cough, sputum production, hemoptysis, dyspnea, dyspnea on exertion, orthopnea Gastrointestinal: Negative for any abdominal pain, nausea, vomiting, diarrhea, constipation, blood in stool, blood in vomit : Negative for any urinary frequency, dysuria, retention, blood in urine Muscle skeletal: Negative for any neck pain, back pain Neurological: Negative for any headache, syncope, dizziness Skin: Negative for any itching, abrasions, lacerations. Positive for rash to bilateral lower legs, left upper arm Psychiatric: Negative for any depression, anxiety, stress, suicidal ideation, homicidal ideation Hematologic: Negative for any excessive bruising, easy bleeding EXAM <JEANNETTE Albarado - Last Filed: 05/04/24 22:02> Physical Exam Narrative Exam Narrative: Vital signs reviewed. HEET: Head normocephalic atraumatic, TMs clear bilaterally. Posterior pharynx is clear, moist mucous membranes. Nares clear bilaterally. Neck: Supple with no lymphadenopathy or tenderness. No signs of meningismus. Cardiac: Regular rate and rhythm no murmurs gallops or rubs, equal peripheral pulses bilaterally. Respiratory: Lungs clear to auscultation bilaterally. No chest tenderness. Abdomen: Soft, nontender, nondistended. No abdominal bruit or pulsatile masses. No hepatosplenomegaly Extremities: No peripheral edema, no signs of gross trauma or deformity. Active full range of motion of all extremities. Neuro: Cranial nerves II through XII intact, no focal neurological deficits. Skin: Clean dry and intact with no purpura, petechiae, vesicles or pustules. Patient has a petechial rash to bilateral ankles, patient areas of the legs below the knees. It does go up above onto her right thigh, as well as to her left arm. This is flush with the skin, there is no bumps. There is no significant sign of cellulitis. Backs/flank: No CVA tenderness, no midline spinal tenderness, no deformity. Psych: Normal mood and affect. No SI, HI or acute psychosis. Const Vital Signs: 05/04/24 21:11 05/04/24 23:10 Temperature 96.6 F L Temperature Source Temporal Pulse Rate 75 69 Respiratory Rate 16 20 H Blood Pressure 142/93 H 145/89 H Blood Pressure Mean 109 107 Pulse Ox 100 99 Oxygen Delivery Method Room Air Room Air Positive well nourished <Dr. Matt Verma DO - Last Filed: 05/04/24 23:39> Physical Exam Const Vital Signs: 05/04/24 21:11 05/04/24 23:10 Temperature 96.6 F L Temperature Source Temporal Pulse Rate 75 69 Respiratory Rate 16 20 H Blood Pressure 142/93 H 145/89 H Blood Pressure Mean 109 107 Pulse Ox 100 99 Oxygen Delivery Method Room Air Room Air MDM <JEANNETTE Albarado - Last Filed: 05/04/24 22:02> MDM Lab Data Labs: Laboratory Results - last 24 hr 05/04/24 05/04/24 05/04/24 21:58 22:03 22:52 WBC 5.3 RBC 3.91 L Hgb 12.5 Hct 38.0 MCV 97.2 MCH 32.0 MCHC 32.9 RDW Std Deviation 46.5 H RDW Coeff of Wilfred 13.0 Plt Count 211 MPV 8.9 Immature Gran % (Auto) 0.200 Neut % (Auto) 34.2 L Lymph % (Auto) 50.3 H [place] % (Auto) 10.1 H Eos % (Auto) 3.9 Baso % (Auto) 1.3 H Absolute Neuts (auto) 1.8 L Absolute Lymphs (auto) 2.68 Nucleated RBC % 0 PT 12.1 INR 0.9 Sodium 137 Potassium 4.0 Chloride 108 H Carbon Dioxide 22.0 Anion Gap 7 BUN 19 H Creatinine 0.79 Estim Creat Clear Calc 58.24 Est GFR (MDRD) Af Amer 91 Est GFR (MDRD) Non-Af 75 BUN/Creatinine Ratio 24.1 H Glucose 99 Calcium 9.3 Urine Color Yellow Urine Clarity Clear Urine pH 7.0 Ur Specific Dahlgren 1.010 Urine Protein Negative Urine Glucose (UA) Normal Urine Ketones Negative Urine Occult Blood 25 H Urine Nitrite Negative Urine Bilirubin Negative Urine Urobilinogen Normal Ur Leukocyte Esterase 500 H Urine RBC 10-25 SEEN Urine WBC 25-50 SEEN Ur Squamous Epith Cells 5-10 SEEN Urine Bacteria 0 SEEN Urine Mucus 0 SEEN Treatment and Re-Evaluation :: Differential diagnosis includes however is not limited to: Vasculitis, petechial rash, strep rash, rash secondary to thrombocytopenia Patient appears to be in no obvious respiratory distress vital signs are stable, patient is nontoxic. Presenting to the emergency department with complaints of rash to bilateral legs, right leg is worse than left. This is not itching, there is no edema. Patient received basic laboratory values such as CBC BMP, PT/INR <Dr. Matt Verma, DO - Last Filed: 05/04/24 23:39> [facility] Narrative Medical decision making narrative: Differential diagnosis includes but not limited to ITP TTP HUS DIC infection vasculitis Blood pressure noted to be elevated 145/89. I do not believe this needs emergent treatment. This can be followed. She has known primary hypertension. White count 5.3 hemoglobin 12.5 platelet count of 211. INR 0.9. BUN at 19 creatinine 0.79. Glucose 99. Urinalysis is contaminated. 0 bacteria 5-10 epithelial cells 25-50 white cells 10-25 red blood cells negative nitrates. Patient's had no progression of her symptoms over about the 2 hours that she has been here. She clinically looks well. Patient and her family were given precautions and return instructions. I spoke with Dr. Camarillo from hematology. We reviewed the case and her blood work. No recommendations for steroids given. Return if any concerning symptoms or worsening. History & Record Review Discussion w/independent historian: Patient and Family Lab Data Attestation: I reviewed the patient's lab results. Labs: Laboratory Results - last 24 hr 05/04/24 05/04/24 05/04/24 21:58 22:03 22:52 WBC 5.3 RBC 3.91 L Hgb 12.5 Hct 38.0 MCV 97.2 MCH 32.0 MCHC 32.9 RDW Std Deviation 46.5 H RDW Coeff of Wilfred 13.0 Plt Count 211 MPV 8.9 Immature Gran % (Auto) 0.200 Neut % (Auto) 34.2 L Lymph % (Auto) 50.3 H [place] % (Auto) 10.1 H Eos % (Auto) 3.9 Baso % (Auto) 1.3 H Absolute Neuts (auto) 1.8 L Absolute Lymphs (auto) 2.68 Nucleated RBC % 0 PT 12.1 INR 0.9 Sodium 137 Potassium 4.0 Chloride 108 H Carbon Dioxide 22.0 Anion Gap 7 BUN 19 H Creatinine 0.79 Estim Creat Clear Calc 58.24 Est GFR (MDRD) Af Amer 91 Est GFR (MDRD) Non-Af 75 BUN/Creatinine Ratio 24.1 H Glucose 99 Calcium 9.3 Urine Color Yellow Urine Clarity Clear Urine pH 7.0 Ur Specific Dahlgren 1.010 Urine Protein Negative Urine Glucose (UA) Normal Urine Ketones Negative Urine Occult Blood 25 H Urine Nitrite Negative Urine Bilirubin Negative Urine Urobilinogen Normal Ur Leukocyte Esterase 500 H Urine RBC 10-25 SEEN Urine WBC 25-50 SEEN Ur Squamous Epith Cells 5-10 SEEN Urine Bacteria 0 SEEN Urine Mucus 0 SEEN Discharge Plan Triage Chief Complaint: Rash ED Midlevel Provider: Yunior Zaldivar ED Provider: Matt Verma Dx/Rx/DC Orders Clinical Impression: Petechial rash, Hypertension Instructions: ED Petechiae Prescriptions: No Action levothyroxine 112 mcg tablet 112 mcg PO DAILY losartan 25 mg tablet 50 mg PO DAILY atenolol 25 mg tablet 25 mg PO DAILY Patient Comments: BLOOD PRESSURE lorazepam 0.5 MG tablet 0.5 mg PO BID Patient Comments: ANXIETY amlodipine 5 mg tablet 5 mg PO DAILY Eliquis 5 mg Tablet 2.5 mg PO BID 9 Days Qty: 9 0RF sennosides-docusate sodium [Stool Softener-Stimulant Laxat] 8.6-50 mg Tablet 2 tab PO BID 30 Days Qty: 120 0RF acetaminophen 500 mg Tablet 1,000 mg PO Q8 Qty: 0 0RF potassium chloride [Klor-Con M20] 20 mEq Tablet,Er Particles/Crystals 20 meq PO DAILYCM 30 Days Qty: 30 0RF acidophilus-pectin, citrus 25 million cell -100 mg Tablet 1 tab PO BID Qty: 0 0RF Primary Care Provider: Nay Greenwood Referrals: Cayden Reyes DO [Non-Staff] - 3-5 Days if not improving Print Language: Other Disposition Disposition: Home, Self Care
[2024-05-04 22:12] LABS: Bacteria 0 SEEN /hpf (None Seen); Mucous, Urine 0 SEEN /hpf (<or=2+)
[2024-05-04 22:14] LABS: Absolute Lymphocyte Count 2.68 X10^3/uL (0.83-4.51); Absolute Neutrophil Count 1.8 X10^3/uL (2.0-7.7); Basophil# 0.07 X10^3/uL; Basophil% 1.3 % (0-1); Eosinophil# 0.21 X10^3/uL; Eosinophils% 3.9 % (0-5); Hemoglobin 12.5 g/dL (12.0-15.0); Lymphocyte # 2.68 X10^3/ul (0.83-4.51); Lymphocyte % 50.3 % (19-41); Mean Corp Hgb Conc 32.9 g/dL (32-36); Mean Corpuscular Volume 97.2 fL (81-99); Mean Platelet Vol. 8.9 fl (6.2-12.0); Monocyte# 0.54 X10^3/uL; Monocyte% 10.1 % (0-10); NRBC Flagged by Analyzer 0 % (0-5); Neutrophil # 1.82 X10^3/uL (2.7-7.7); Neutrophil % 34.2 % (47-70); Platelet Count 211 K/mm3 (150-450); RBC Distribution Width SD 46.5 fl (35.1-43.9); Red Blood Count 3.91 M/mm3 (4.2-5.4); White Blood Count 5.3 K/mm3 (4.4-11.0)
[2024-05-04 22:33] LABS: Anion Gap 7 (5-15); BUN 19 mg/dL (7-18); BUN/Creat Ratio 24.1 RATIO (10-20); Calcium,Total 9.3 mg/dL (8.5-10.1); Chloride 108 mmol/L (98-107); Creatinine, Serum 0.79 mg/dL (0.55-1.02); EST Glomerular Filtration Rate 75 mL/min (>60); Est Glom Filt Rate - Afr Amer 91 mL/min (>60); Estimated Creatinine Clearance 58.24 ml/min; Glucose 99 mg/dL (74-106); Sodium Level 137 mmol/L (136-145)
[2024-05-04 22:43] LABS: Color, Urine Yellow (Yellow); Glucose, Dipstick Normal (Normal); Ketone-Dipstick Negative (Negative); Leukocyte Esterase-Dipstick 500 /ul (Negative); Nitrite-Dipstick Negative (Negative); Occult Blood-Urine 25 /ul (Negative); Protein-Dipstick Negative (Negative); Urine Bilirubin Dipstick Negative (Negative); Urine Clarity Clear (Clear); Urine Urobilinogen Normal (Normal)
[2024-05-04 22:44] LABS: White Blood Cells 25-50 SEEN /hpf (0-5)
[2024-05-04 22:45] LABS: Red Blood Cells-Urine 10-25 SEEN /hpf (0-5); Squamous Epithelial Cells - UA 5-10 SEEN /hpf (5-10)
[2024-05-04 23:10] VITALS: BP 145/89; PULSE 69; RESP 20; O2SAT 99
[2024-05-04 23:11] LABS: International Normalized Ratio 0.9; Prothrombin Time (Protime)PT. 12.1 SECONDS (11.7-14.9)
--- NOTE | 2024-05-04 23:37 | ED.RN ---
Unsuccessful IV stick x2 by parag RN and x2 by Lea DE LOS SANTOS by Ultrasound. DATA PROCESSING CONTROL CLERK aware.
== END 2024-05-04 23:49 | disposition home or self-care (01) ==
PROVIDERS: Nurse Practitioner; Emergency Provider Emergency Medicine; PCP Internal Medicine; Visit Provider Emergency Medicine
DX: R21 Rash and other nonspecific skin eruption (principal); I10 Essential (primary) hypertension; E78.5 Hyperlipidemia, unspecified; E03.9 Hypothyroidism, unspecified; Z79.899 Other long term (current) drug therapy; Z90.710 Acquired absence of both cervix and uterus; Z96.651 Presence of right artificial knee joint; Z79.01 Long term (current) use of anticoagulants; I49.9 Cardiac arrhythmia, unspecified
CPT/HCPCS: 36415; 80048; 81001; 85025; 85610; 87086; 99282; A4216

== ENCOUNTER → 2024-08-13 | Outpatient (REF) | payer MEDICARE, SELFPAY ==
[2024-08-13 09:20] LABS: BNP,B-Type NATRIURETIC PEPTIDE 18.2 pg/mL (0-100)
[2024-08-13 09:42] LABS: Anion Gap 9 (5-15); BUN 15 mg/dL (7-18); BUN/Creat Ratio 18.7 RATIO (10-20); Chloride 106 mmol/L (98-107); EST Glomerular Filtration Rate 74 mL/min (>60); Est Glom Filt Rate - Afr Amer 89 mL/min (>60); Glucose 100 mg/dL (74-106); Sodium Level 139 mmol/L (136-145)
== END ==
LOC: OLS.SWAL 05:00
PROVIDERS: PCP Internal Medicine; Visit Provider Internal Medicine
DX: I27.20 Pulmonary hypertension, unspecified (principal); I10 Essential (primary) hypertension; E03.9 Hypothyroidism, unspecified
CPT/HCPCS: 36415; 80048; 83880; 84443

== ENCOUNTER → 2024-10-17 | Outpatient (REF) | payer MEDICARE, SELFPAY ==
[2024-10-17 10:34] LABS: Vitamin D,25 Hydroxy 25.3 ng/mL
== END ==
LOC: OLS.SWAL 04:00
PROVIDERS: PCP Internal Medicine; Referring Provider Internal Medicine; Visit Provider Internal Medicine
DX: E55.9 Vitamin D deficiency, unspecified (principal); E03.9 Hypothyroidism, unspecified
CPT/HCPCS: 36415; 82306; 84443

== ENCOUNTER → 2024-12-03 05:00 | Outpatient (REF) | payer MEDICARE, SELFPAY ==
[2024-12-03 09:43] LABS: Absolute Lymphocyte Count 1.49 X10^3/uL (0.83-4.51); Absolute Neutrophil Count 2.6 X10^3/uL (2.0-7.7); Basophil# 0.02 X10^3/uL; Basophil% 0.4 % (0-1); Eosinophil# 0.08 X10^3/uL; Eosinophils% 1.7 % (0-5); Hematocrit 37.6 % (37-47); Hemoglobin 12.7 g/dL (12.0-15.0); Lymphocyte # 1.49 X10^3/ul (0.83-4.51); Lymphocyte % 31.5 % (19-41); Mean Corp Hgb Conc 33.8 g/dL (32-36); Mean Corpuscular Hgb 32.2 pg (27.0-32.0); Mean Corpuscular Volume 95.4 fL (81-99); Mean Platelet Vol. 9.2 fl (6.2-12.0); Monocyte% 10.6 % (0-10); NRBC Flagged by Analyzer 0 % (0-5); Neutrophil # 2.62 X10^3/uL (2.7-7.7); Neutrophil % 55.4 % (47-70); Platelet Count 279 K/mm3 (150-450); RBC Distribution Width SD 46.1 fl (35.1-43.9); Red Blood Count 3.94 M/mm3 (4.2-5.4); White Blood Count 4.7 K/mm3 (4.4-11.0)
[2024-12-03 10:12] LABS: ALB/GLOB Ratio 0.8 RATIO (0.9-2.4); AST(SGOT) 31 U/L (15-37); Alanine Aminotransfer ALT/SGPT 29 U/L (13-56); Alkaline Phosphatase 73 U/L (45-117); Anion Gap 5 (5-15); BUN 14 mg/dL (7-18); BUN/Creat Ratio 18.5 RATIO (10-20); Calcium,Total 9.3 mg/dL (8.5-10.1); Chloride 109 mmol/L (98-107); Creatinine, Serum 0.76 mg/dL (0.55-1.02); EST Glomerular Filtration Rate 79 mL/min (>60); Est Glom Filt Rate - Afr Amer 95 mL/min (>60); Globulin 3.9 g/dL (2.2-4.2); Glucose 99 mg/dL (74-106); Protein, Total 6.9 g/dL (6.4-8.2); Sodium Level 137 mmol/L (136-145)
== END ==
LOC: OLS.SWAL 05:00
PROVIDERS: PCP Internal Medicine; Visit Provider Internal Medicine
DX: I50.9 Heart failure, unspecified (principal)
CPT/HCPCS: 36415; 80053; 85025

== ENCOUNTER → 2024-12-10 | Outpatient (REF) | payer MEDICARE, SELFPAY ==
[2024-12-11 07:57] LABS: Mucous, Urine 0 SEEN /hpf (<or=2+); Red Blood Cells-Urine 0 SEEN /hpf (0-5)
[2024-12-11 08:12] LABS: Color, Urine Yellow (Yellow); Glucose, Dipstick Normal (Normal); Ketone-Dipstick Negative (Negative); Leukocyte Esterase-Dipstick 500 /ul (Negative); Nitrite-Dipstick Negative (Negative); Occult Blood-Urine 25 /ul (Negative); Protein-Dipstick 15 mg/dl (Negative); Urine Bilirubin Dipstick Negative (Negative); Urine Clarity Cloudy (Clear); Urine Urobilinogen Normal (Normal); Urine pH 6.5 (5.0 - 8.0)
[2024-12-11 08:22] LABS: Bacteria RARE /hpf (None Seen); Squamous Epithelial Cells - UA 0-5 SEEN /hpf (5-10); White Blood Cells 50-100 SEEN /hpf (0-5)
== END ==
LOC: OLS.SWAL 10:30
PROVIDERS: PCP Internal Medicine; Visit Provider Internal Medicine
DX: N39.0 Urinary tract infection, site not specified (principal)
CPT/HCPCS: 81001; 87086; 87088

== ENCOUNTER → 2024-12-14 05:00 | Outpatient (REF) | payer MEDICARE, SELFPAY | LOC: OLS.SWAL 05:00 | PROVIDERS: PCP Internal Medicine; Visit Provider Internal Medicine | DX: E03.9 Hypothyroidism, unspecified (principal) | CPT/HCPCS: 36415; 84443 ==

== ENCOUNTER 2024-12-28 14:36 | Emergency (ER) | payer MEDICARE, MEDICAID, SELFPAY ==
[2024-12-28 14:37] VITALS: BP 132/91; PULSE 74; RESP 16; TEMP 36.6; O2SAT 98; BMI 30.1
--- NOTE | 2024-12-28 16:37 | CT_ITS ---
PROCEDURE: BRAIN/HEAD WITHOUT CONTRAST; SPINE CERVICAL WITHOUT CONTRAS REASON FOR EXAM: Trauma TECHNIQUE: Axial with coronal and sagittal reformats of the brain and cervical spine COMPARISON: None. FINDINGS: Alignment: Normal Vertebrae: No acute fracture Prominent multilevel degenerative changes of the cervical spine. Soft Tissues: No large prevertebral hematoma No acute intracranial hemorrhage. Dura is maintained. Ventricles are preserved. No midline shift. Globes are normal. CT/Spine Cervical without Contras IMPRESSION: No acute CT process in the brain or cervical spine. One or more dose reduction techniques were used (e.g., Automated exposure contr ol, adjustment of the mA and/or kV according to patient size, use of iterative reconstruction technique). Reading Location: [facility]
--- NOTE | 2024-12-28 16:37 | CT_ITS ---
PROCEDURE: BRAIN/HEAD WITHOUT CONTRAST; SPINE CERVICAL WITHOUT CONTRAS REASON FOR EXAM: Trauma TECHNIQUE: Axial with coronal and sagittal reformats of the brain and cervical spine COMPARISON: None. FINDINGS: Alignment: Normal Vertebrae: No acute fracture Prominent multilevel degenerative changes of the cervical spine. Soft Tissues: No large prevertebral hematoma No acute intracranial hemorrhage. Dura is maintained. Ventricles are preserved. No midline shift. Globes are normal. CT/Brain/Head without Contrast IMPRESSION: No acute CT process in the brain or cervical spine. One or more dose reduction techniques were used (e.g., Automated exposure contr ol, adjustment of the mA and/or kV according to patient size, use of iterative reconstruction technique). Reading Location: [facility]
--- NOTE | 2024-12-28 16:38 | EDS_ITS ---
HPI <JEANNETTE Albarado - Last Filed: 12/28/24 18:15> History of Present Illness Chief Complaint: Fall Narrative Narrative: Patient is a 74-year-old female with history of dementia, hyperlipidemia, anxiety, hypertension who presents to the [facility] for evaluation after sustaining a head injury. Last evening, the patient slipped out of bed, hitting the back of her head. A staff member was able to get her back into bed. Today, she has a hematoma, headache, and they want to have her evaluated. Patient denies any nausea, patient states he does have a headache where she struck her head. Denies any other injury. [facility] <JEANNETTE Albarado - Last Filed: 12/28/24 18:15> [facility] Medical History (Updated 12/28/24 @ 18:15 by JEANNETTE Albarado) Valvular heart disease Cardiac dysrhythmia Knee osteoarthritis Family history of coronary artery disease Hypothyroidism Mixed hyperlipidemia Essential hypertension Home Medications ?Medication ?Instructions ?Recorded ?Last Taken ?Type lorazepam 0.5 mg tablet 0.5 mg PO BID anxiety Unknown History levothyroxine 112 mcg tablet 112 mcg PO DAILY thyroid 12/30/21 Unknown History losartan 25 mg tablet 50 mg PO DAILY BP 12/30/21 U nknown History atenolol 25 mg tablet 25 mg PO DAILY BP 06/10/22 U nknown History amlodipine 5 mg tablet 5 mg PO DAILY BP 12/22/22 Un known History acetaminophen 500 mg tablet 1,000 mg (2 x 500 mg) PO Q 8 #0 tabs 12/23/22 Unknown Rx acidophilus 25 million 1 tab PO BID #0 tabs 3 Unknown Rx cell-pectin, citrus 100 mg tablet apixaban 5 mg tablet (Eliquis) 2.5 mg (1/2 x 5 mg) PO BID 9 days 12/23/22 Unknown Rx #9 tabs potassium chloride 20 mEq 20 meq PO DAILYCM 30 days #3 0 tabs 12/23/22 Unknown Rx tablet,extended release(part/cryst) (Klor-Con M) sennosides 8.6 mg-docusate sodium 2 tab PO BID 30 days #120 tabs 12/23/22 Unknown Rx 50 mg tablet (Stool Softener-Stimulant Laxative) Allergy/AdvReac Type Severity Reaction Status Date / Time prednisone Allergy Rash Verified 12/28/24 16:54 cyclobenzaprine (From AdvReac Unknown Irregular Verified 12/28/24 16:54 Flexeril) Heartbeat lisinopril AdvReac Unknown Cough Verified 12/28/24 16:54 hydrocodone bitartrate (From AdvReac Other Verified 12/28/24 16:54 Vicodin) promethazine AdvReac Other Verified 12/28/24 16:54 Tijutxg-SLV-UaC Reductase AdvReac Pain in Verified 12/28/24 16:54 Inhibitor (Oktzkxs-Smw-Xqf joints Reductase Inhibitor) Family History Father Heart disease Brother Heart disease Surgical History History of total right knee replacement H/O lithotripsy History of hysterectomy Social History (Updated 12/22/22 @ 19:[address] Shant Guevara MD) household members: none Smoking Status: Never smoker alcohol intake: never substance use type: does not use caffeine: Yes ROS <JEANNETTE Albarado - Last Filed: 12/28/24 18:15> ROS ED ROS Narrative Constitutional: Negative for fever, chills, weight loss, weakness Eyes: Negative for vision loss, vision change, double vision ENT: Negative for any sore throat, ear pain, congestion Cardiovascular: Negative for any chest pain, tightness, palpitations Respiratory: Negative for any cough, sputum production, hemoptysis, dyspnea, dyspnea on exertion, orthopnea Gastrointestinal: Negative for any abdominal pain, nausea, vomiting, diarrhea, constipation, blood in stool, blood in vomit : Negative for any urinary frequency, dysuria, retention, blood in urine Muscle skeletal: Negative for any neck pain, back pain Neurological: Negative for any syncope, dizziness. Positive for headache Skin: Negative for any rashes, itching, abrasions, lacerations Psychiatric: Negative for any depression, anxiety, stress, suicidal ideation, homicidal ideation Hematologic: Negative for any excessive bruising, easy bleeding EXAM <Yunior Zaldivar NP-C - Last Filed: 12/28/24 18:15> Physical Exam Narrative Exam Narrative: Vital signs reviewed. HEET: Head normocephalic atraumatic, TMs clear bilaterally. Posterior pharynx is clear, moist mucous membranes. Nares clear bilaterally. Pupils are equal round reactive to light, negative for any hemotympanum or septal hematoma. Patient does have a hematoma to the occiput Neck: Supple with no lymphadenopathy or tenderness. No signs of meningismus. Cardiac: Regular rate and rhythm no murmurs gallops or rubs, equal peripheral pulses bilaterally. Respiratory: Lungs clear to auscultation bilaterally. No chest tenderness. Abdomen: Soft, nontender, nondistended. No abdominal bruit or pulsatile masses. No hepatosplenomegaly Extremities: No peripheral edema, no signs of gross trauma or deformity. Active full range of motion of all extremities. Neuro: Cranial nerves II through XII intact, no focal neurological deficits. Skin: Clean dry and intact with no rash, purpura, petechiae, vesicles or pustules. Backs/flank: No CVA tenderness, no midline spinal tenderness, no deformity. Psych: Normal mood and affect. No SI, HI or acute psychosis. Const Vital Signs: 12/28/24 14:37 Temperature 97.8 F Temperature Source Temporal Pulse Rate 74 Respiratory Rate 16 Blood Pressure 132/91 H Blood Pressure Mean 104 Pulse Ox 98 Oxygen Delivery Method Room Air Positive well nourished and well developed General Appearance ED: well developed <Dr. Masood Holden DO - Last Filed: 12/28/24 18:13> Physical Exam Const Vital Signs: 12/28/24 14:37 Temperature 97.8 F Temperature Source Temporal Pulse Rate 74 Respiratory Rate 16 Blood Pressure 132/91 H Blood Pressure Mean 104 Pulse Ox 98 Oxygen Delivery Method Room Air MDM <JEANNETTE Albarado - Last Filed: 12/28/24 18:15> [facility] Radiography Diagnostic Testing: Clinical Impression(s) from Imaging Studies Brain CT 12/28/24 16:37 IMPRESSION: No acute CT process in the brain or cervical spine. One or more dose reduction techniques were used (e.g., Automated exposure control, adjustment of the mA and/or kV according to patient size, use of iterative reconstruction technique). Reading Location: [facility] Cervical Spine CT 12/28/24 16:37 IMPRESSION: No acute CT process in the brain or cervical spine. One or more dose reduction techniques were used (e.g., Automated exposure control, adjustment of the mA and/or kV according to patient size, use of iterative reconstruction technique). Reading Location: [facility] Treatment and Re-Evaluation :: Differential diagnosis includes however is not limited to: Closed head injury, skull fracture, concussion, intracranial bleeding, cervical strain, cervical fracture Patient appears generally well, vital signs are stable, patient is nontoxic- appearing. Patient is acting appropriate per the son. Patient presents to the [facility] after mechanical fall injuring the back of her head. CT scan of the head and neck will be obtained, second of the patient's age. Patient is tender to the occiput. There is no evidence of any skull fracture. All radiologic examinations were read, reviewed by the emergency department attending. From these reads, a plan of care will be put in place. CT scan of the brain, cervical spine were grossly unremarkable for any acute process. Patient did receive oral Tylenol. At this time, patient is ambulatory, the patient's headache is decreasing. He believe the patient stable for discharge. I spoke with her son who will take her back to the assisted living. All questions were answered, stable for discharge <Dr. Masood Holden, DO - Last Filed: 12/28/24 18:13> [facility] Narrative Medical decision making narrative: I have personally performed a face to face assessment of the patient and have reviewed the MADI Note. I performed a substantive portion of the visit including all aspects of the following. My carson findings include: History: Patient presents with head injury that occurred last night. Patient fell out of bed and hit the back of her head. Patient complains of a headache in the left occipital and left frontal area. The patient has a history of dementia and is a poor informant. Family states patient is acting like her normal self. Exam: Vital signs are stable. Patient is afebrile. Patient is in no acute distress. Cranial nerves II through XII are intact. Strength is 5/5 bilaterally in the upper and lower extremities. There are no sensory deficits noted. There is mild tenderness over the left occipital area. There is no hematoma noted. There is no bony crepitus or step-off. Oral mucosa is pink and moist. Neck is supple. Trachea is midline. There is no JVD. Heart was regular rate and rhythm. Lungs are clear and equal bilaterally. Abdomen is soft. Bowel sounds are normal. There is no tenderness. Medical Decision Making: Differential diagnosis includes cervical spine fracture, closed head injury, and intracranial bleeding. CT scan of the brain will be obtained to assess for intracranial bleeding. CT scan of the cervical spine will be obtained to assess for cervical spine fracture. CT scan of the brain was obtained. There is no acute intracranial abnormality. This was interpreted by the radiologist and was also independently reviewed by myself. CT scan of the cervical spine was obtained. There is no acute fracture or spondylolisthesis. No soft tissue swelling. This was interpreted by the radiologist and was also independently reviewed by myself. Patient and family were advised of the findings. Patient was instructed to follow-up with her primary care physician in 5 to 7 days. Patient was instructed to take Tylenol as needed for headaches. Patient was instructed to return if worse in any way. Patient and family understood and were agreeable with the plan. All questions were answered. Radiography Diagnostic Testing: Clinical Impression(s) from Imaging Studies Brain CT 12/28/24 16:37 IMPRESSION: No acute CT process in the brain or cervical spine. One or more dose reduction techniques were used (e.g., Automated exposure control, adjustment of the mA and/or kV according to patient size, use of iterative reconstruction technique). Reading Location: [facility] Cervical Spine CT 12/28/24 16:37 IMPRESSION: No acute CT process in the brain or cervical spine. One or more dose reduction techniques were used (e.g., Automated exposure control, adjustment of the mA and/or kV according to patient size, use of iterative reconstruction technique). Reading Location: [facility] Discharge Plan Triage Chief Complaint: Fall ED Midlevel Provider: Yunior Zaldivar ED Provider: Masood Holden Dx/Rx/DC Orders Clinical Impression: Fall, Headache, Head injury Instructions: ED Head Injury (Adult) Prescriptions: No Action levothyroxine 112 mcg tablet 112 mcg PO DAILY losartan 25 mg tablet 50 mg PO DAILY atenolol 25 mg tablet 25 mg PO DAILY Patient Comments: BLOOD PRESSURE lorazepam 0.5 MG tablet 0.5 mg PO BID Patient Comments: ANXIETY amlodipine 5 mg tablet 5 mg PO DAILY Eliquis 5 mg Tablet 2.5 mg PO BID 9 Days Qty: 9 0RF sennosides-docusate sodium [Stool Softener-Stimulant Laxat] 8.6-50 mg Tablet 2 tab PO BID 30 Days Qty: 120 0RF acetaminophen 500 mg Tablet 1,000 mg PO Q8 Qty: 0 0RF potassium chloride [Klor-Con M20] 20 mEq Tablet,Er Particles/Crystals 20 meq PO DAILYCM 30 Days Qty: 30 0RF acidophilus-pectin, citrus 25 million cell -100 mg Tablet 1 tab PO BID Qty: 0 0RF Primary Care Provider: Nay Greenwood Referrals: Nay Greenwood MD [Primary Care Provider] - Activity Restrictions/Additional Instructions: Your CT scan of the brain and cervical spine was negative. Please continue to take Tylenol Print Language: Other Disposition Disposition: Home, Self Care
[2024-12-28] MEDS: Acetaminophen 500 MG Tablet 1000 MG PO (17:24)
== END 2024-12-28 18:51 | disposition home or self-care (01) ==
PROVIDERS: Emergency Provider Emergency Medicine; PCP Internal Medicine; Visit Provider Emergency Medicine
DX: S00.93XA Contusion of unspecified part of head, initial encounter (principal); F03.90 Unspecified dementia, unspecified severity, without behavioral disturbance, psychotic disturbance, mood disturbance, and anxiety; W06.XXXA Fall from bed, initial encounter; I10 Essential (primary) hypertension; E78.2 Mixed hyperlipidemia; E03.9 Hypothyroidism, unspecified; F41.9 Anxiety disorder, unspecified; Z79.01 Long term (current) use of anticoagulants; Z79.890 Hormone replacement therapy; Z79.899 Other long term (current) drug therapy; Z96.651 Presence of right artificial knee joint
CPT/HCPCS: 70450; 72125; 99282

== ENCOUNTER → 2025-02-04 | Outpatient (REF) | payer MEDICARE, MEDICAID, SELFPAY | LOC: OLS.SWAL 05:00 | PROVIDERS: PCP Internal Medicine; Visit Provider Internal Medicine | DX: E03.9 Hypothyroidism, unspecified (principal) | CPT/HCPCS: 36415; 84443 ==

== ENCOUNTER → 2025-02-25 | Outpatient (REF) | payer MEDICARE, MEDICAID, SELFPAY ==
[2025-02-25 08:38] LABS: Hematocrit 33.2 % (37-47); Hemoglobin 11.6 g/dL (12.0-15.0); Mean Corp Hgb Conc 34.9 g/dL (32-36); Mean Corpuscular Hgb 33.5 pg (27.0-32.0); Mean Platelet Vol. 9.3 fl (6.2-12.0); Platelet Count 280 K/mm3 (150-450); RBC Distribution Width SD 49.7 fl (35.1-43.9); Red Blood Count 3.46 M/mm3 (4.2-5.4); White Blood Count 5.1 K/mm3 (4.4-11.0)
[2025-02-25 08:53] LABS: Anion Gap 12 (5-15); BUN 11 mg/dL (4-19); BUN/Creat Ratio 14.2 RATIO (10-20); Calcium,Total 9.4 mg/dL (7.6-11.0); Carbon Dioxide 17.4 mmol/L (21.0-32.0); Chloride 107 mmol/L (98-108); Creatinine, Serum 0.79 mg/dL (0.70-1.20); EST Glomerular Filtration Rate 77 (>60); Glucose 106 mg/dL (70-99); Potassium 4.3 mmol/L (3.3-5.1); Sodium Level 137 mmol/L (133-145)
== END ==
LOC: OLS.SWAL 04:00
PROVIDERS: PCP Internal Medicine; Referring Provider Internal Medicine; Visit Provider Internal Medicine
DX: I13.10 Hypertensive heart and chronic kidney disease without heart failure, with stage 1 through stage 4 chronic kidney disease, or unspecified chronic kidney disease (principal); I50.9 Heart failure, unspecified; N18.9 Chronic kidney disease, unspecified
CPT/HCPCS: 36415; 80048; 85027

== ENCOUNTER → 2025-06-04 | Outpatient (REF) | payer MEDICARE, MEDICAID, SELFPAY ==
[2025-06-04 08:45] LABS: Hematocrit 37.3 % (37-47); Hemoglobin 12.5 g/dL (12.0-15.0); Immature Granulocytes Count 0.010 X10^3/uL (0.0-0.0); Mean Corp Hgb Conc 33.5 g/dL (32-36); Mean Corpuscular Volume 95.6 fL (81-99); Mean Platelet Vol. 9.4 fl (6.2-12.0); NRBC Flagged by Analyzer 0 % (0-5); Platelet Count 242 K/mm3 (150-450); RBC Distribution Width CV 13.2 % (11.6-14.6); RBC Distribution Width SD 46.5 fl (35.1-43.9); Red Blood Count 3.90 M/mm3 (4.2-5.4); White Blood Count 4.4 K/mm3 (4.4-11.0)
[2025-06-04 09:21] LABS: AST(SGOT) 23 U/L (<=31); Alanine Aminotransfer ALT/SGPT 14 U/L (<=34); Albumin, Serum 4.0 g/dL (3.4-4.8); Alkaline Phosphatase 100 U/L (35-104); Anion Gap 11 (5-15); BUN 16 mg/dL (4-19); BUN/Creat Ratio 21.5 RATIO (10-20); Calcium,Total 9.6 mg/dL (7.6-11.0); Carbon Dioxide 21.2 mmol/L (21.0-32.0); Chloride 107 mmol/L (98-108); Globulin 2.9 g/dL (2.2-4.2); Glucose 109 mg/dL (70-99); Magnesium 2.1 mg/dL (1.5-2.2); Potassium 4.4 mmol/L (3.3-5.1)
== END ==
LOC: OLS.SWAL 07:05
PROVIDERS: PCP Internal Medicine; Visit Provider Internal Medicine
DX: E03.9 Hypothyroidism, unspecified (principal); I13.10 Hypertensive heart and chronic kidney disease without heart failure, with stage 1 through stage 4 chronic kidney disease, or unspecified chronic kidney disease; N18.9 Chronic kidney disease, unspecified
CPT/HCPCS: 36415; 80053; 83735; 84443; 85025

== ENCOUNTER → 2025-10-14 04:00 | Outpatient (REF) | payer MEDICARE, MEDICAID, SELFPAY ==
--- OUTSIDE RECORDS SUMMARY | 2025-10-14 03:49 | XMS RPT_ITS | CCD ---
Author Organization [facility] Care Team Providers Care Call Worker Name Role Phone STACEY NEWBERRY DO Primary Care Physician Alix PT, Josefina Unavailable Unavailable Stacey Newberry DO Primary Care Provider Amy HANSON MD, Michael Primary Care Provider Stacey Newberry DO Primary Care Provider No, PCP Primary Care Unavailable PROVIDER, UNKNOWN Referring Unavailable Sarath Ramos Attending Unavailable Stacey Newberry Primary Care Unavailable Sarath Ramos Attending Unavailable PROVIDER, UNKNOWN Referring Unavailable Stacey Newberry Primary Care Unavailable Sarath Ramos Attending Unavailable PROVIDER, UNKNOWN Referring Unavailable Stacey Newberry Primary Care Unavailable Sarath Ramos Attending Unavailable PROVIDER, UNKNOWN Referring Unavailable Dr. Stacey Newberry Primary Care Provider Dr. 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 DRIVER, MARIA MELIN Attending Unavailabl e HALKO DO, STACEY Primary Care Unavailable HALKO DO, STACEY Attending Unavailable HALKO DO, STACEY Primary Care Unavailable HALKO DO, STACEY Attending Unavailable HALKO DO, STACEY Primary Care Unavailable HALKO DO, STACEY Attending Unavailable HALKO DO, STACEY Primary Care Unavailable HALKO DO, STACEY Attending Unavailable HALKO DO, STACEY Primary Care Unavailable HALKO DO, STACEY Attending Unavailable HALKO DO, STACEY Primary Care Unavailable FROMMELT DO, YOAN Attending Unavailable HALKO DO, STACEY Primary Care Unavailable MIC DOBSON, DR MIX Attending Unavailabl e HALKO DO, STACEY Primary Care Unavailable RIDER DO, DR SWETHA Colon Attending Unavailable HALKO DO, STACEY Primary Care Unavailable FROMMELT DO, YOAN Attending Unavailable HALKO DO, SATCEY Primary Care Unavailable RIDER DO, DR SWETHA Colon Attending Unavailable HALKO DO, STACEY Primary Care Unavailable DEON DOBSON, DR DAMIR Parker Attending Unavai lable HALKO DO, STACEY Primary Care Unavailable Dong DOBSON, Elie Payne Unavailable Shaun Eastman MD Unavailable Dr. Nay Greenwood MD Primary Care Provider Unava Dr. Nay Jones MD Attending Provider Unavailkerry Holden DO, Dr. Correia Attending Provider [phone] Dr. Masood Holden DO Emergency Provider [phone] Dr. Nay Greenwood MD Referring Provider UnavailSHAUN Manuel Attending Unavailable KIARA WAYNE Attending Unavailable HALKO, STACEY Primary Care Unavailable NETHING SARATH Attending Unavailable HALKO, STACEY Primary Care Unavailable NETHINGSARATH Attending Unavailable NETHING, SARATH Referring Unavailable HALKO, STACEY Primary Care Unavailable NETHING, SARATH Admitting Unavailable NETHING, SARATH Attending Unavailable HALKO, STACEY Primary Care Unavailable Gudla, Nay Primary Care Unavailable Masood Holden Attending Unavailable Gudla Nay FLETCHER Attending Unavailable Gudla Nay FLETCHER Referring Unavailable Gudla, Nay Primary Care Unavailable Gudla Nay FLETCHER Attending Unavailable Gudla, Nay Primary Care Unavailable Gudla Isaiah FLETCHERyothi Referring Unavailable Gudla OLS, Nay Attending Unavailable Gudla, Nay Primary Care Unavailable Gudla, Nay Primary Care Unavailable Gudla OLS, Nay Attending Unavailable Gudla OLS, Nay Attending Unavailable Gudla, Nay Primary Care Unavailable Gudla OLS, Nay Attending Unavailable Gudla, Nay Primary Care Unavailable Gudla OLS, Nay Attending Unavailable Gudla, Nay Primary Care Unavailable Allergies Allergy Classification Reported Allergen(s) Allergy Type Date of Onset Reaction(s) Facility (20 sources) cyclobenzaprine; Translations: [cyclobenzaprine] Drug Allergy 12-30-19 22 Irregular heart beat (finding), Other (See Comments) [facility] (20 sources) Hmg-Coa Reductase Inhibitors (Statins); Translations: [statins] Drug allergy 01-28-20 22 myalgias [facility] (20 sources) Lisinopril; Translations: [lisinopril] Drug Allergy 12-30-19 22 Cough (finding), Other (See Comments) [facility] (20 sources) predniSONE; Translations: [prednisone] Drug Allergy 06-10-20 15 Itching, Rash [facility] (20 sources) Promethazine; Translations: [promethazine] Drug Allergy 06-10-20 15 Irregular heart beat (finding), Other (See Comments) [facility] Comment on above: PALPITATIONS, "FELT LIMP" (20 sources) HYDROcodone Drug Allergy 06-10-20 15 Other (See Comments) [facility] (20 sources) Sulfonamides (Antibiotic) Propensity to adverse reactions to drug 08-05-20 22 Dizziness or Vertigo [facility] (4 sources) HYDROcodone; Translations: [hydrocodone bitartrate] Drug Allergy 12-15-19 23 Other [facility] Comment on above: "FLUSHED AND HOT" (3 sources) Cjyrfno-Qxs-Vju Reductase Inhibitor Propensity to adverse reactions 12-15-19 23 Pain in joints [facility] (20 sources) Lisinopril Propensity to adverse reactions 12-30-19 [facility] (20 sources) Prednisone Allergy to substance 06-10-20 15 Itching, Rash [facility] (1 source) cyclobenzaprine Drug Allergy 12-28-19 [facility] (1 source) Lisinopril Drug Allergy 12-28-19 [facility] (1 source) predniSONE Drug Allergy 12-28-19 [facility] (1 source) Promethazine Drug Allergy 12-28-19 [facility] (1 source) Ijooelq-Njz-Stx Reductase Inhibitor Drug allergy (disorder) 12-28-19 [facility] NEGATED: Highlighted row has been ruled out! (2 sources) Other Propensity to adverse reactions 03-22-20 [facility] Medications Current Medications Medication Drug Class(es) Dates Sig (Normalized) Sig (Original) acetaminophen 325 mg / oxyCODONE hydrochloride 5 mg oral tablet (6 sources) Opioid Agonist Start: 02-19-2025 End: 02-22-2025 take 1 tablet by mouth every six hours as needed for pain oxyCODONE-acetami nophen (Percocet) 5-325 MG tablet Indications: Right kidney stone Take 1 tablet by mouth every 6 hours as needed for severe pain (7-10) for up to 3 days. 6 tablet 02/19/2025 02/22/2025 Active Start: 03-14-2022 End: 03-16-2022 oxyCODONE-acetaminophen (PER COCET) 5-325 mg tablet Take 1 tablet by mouth. 0 03/14/2022 03/16/2022 Active Start: 03-14-2022 End: 03-16-2022 oxyCODONE-acetaminophen (PER COCET) 5-325 MG per tablet Indications: Renal calculus, right Take 1 tablet by mouth every 6 hours as needed for Pain for up to 2 days. Intended supply: 3 days. Take lowest dose possible to manage pain 8 tablet 0 03/14/2022 03/16/2022 Active Comment on above: Take 1 tablet by santos th. aluminum hydroxide 40 mg/ml / magnesium hydroxide 40 mg/ml / simethicone 4 mg/ml oral suspension (9 sources) aluminum & magnesium hydroxide-simethico ne (Mylanta) 200-200-20 MG/5ML oral suspension Take by mouth every 4 hours as needed for indigestion or heartburn. Active amoxicillin 875 mg / clavulanate 125 mg oral tablet (10 sources) Penicillin-class Antibacterial Start: End: take 1 tablet by mouth twice daily amoxicillin-clavula jessy (Augmentin) 875-125 MG tablet Take 1 tablet by mouth 2 times daily for 7 days. 14 tablet 0 12/06/2023 12/13/2023 Active Start: 11-15-2023 amoxicillin-cl avulanate 875 mg-125 mg oral tablet 0 Refill(s), 67.2 Start Date: 11/15/23 Status: Ordered Start: 11-10-2023 End: 11-16-2023 take 1 tablet by mouth twice daily amoxicillin-clavulanate (Augmentin) 875-125 MG tablet Indications: Infection due to Staphylococcus epidermidis Take 1 tablet by mouth 2 times daily for 2 days. 4 tablet 0 11/14/2023 11/16/2023 Active apixaban 5 mg oral tablet (6 sources) Factor Xa Inhibitor Start: 12-23-2022 take 2.5 mg by mouth twice daily Apixaban (Eliquis) 5 mg Tablet Active 2.5 mg PO TWICE A DAY 9 December 23, 2022 1:00am Start: 12-22-2022 End: 12-23-2022 take 1 tablet by mouth twice daily Apixaban 2.5 mg Tablet Discontinued 2.5 mg PO TWICE A DAY December 22, 2022 1:00am December 23, 2022 2:02pm ascorbic acid 500 mg chewable tablet (20 sources) Vitamin C Start: 11-07-2023 ascorbic acid (Vitamin C) 500 mg chewable tablet Chew 500 mg. 11/07/2023 Active bisacodyl 10 mg rectal suppository (9 sources) Stimulant Laxative take 10 mg rectal route once as needed for constipation bisacodyl (Dulcolax) 10 MG suppository Insert 10 mg into the rectum Once as needed for constipation. Active busPIRone hydrochloride 5 mg oral tablet (9 sources) busPIRone (Buspar) 5 MG tablet Take by mouth 3 times daily. Active cefdinir 300 mg oral capsule (4 sources) Cephalosporin Antibacterial Start: 11-20-2023 End: 11-30-2023 cefdinir 300 mg oral capsule Dose : 300 mg = 1 cap(s), Oral, q12h, X 10 day(s), # 20 cap(s), 0 Refill(s), 11/30/23 1:58:00 PM EST, 70.1 Start Date: 11/20/23 Stop Date: 11/30/23 Status: Ordered Start: 08-31-2022 End: 09-07-2022 cefdinir 300 mg oral capsule Dose : 300 mg = 1 cap(s), Oral, q12h, X 7 day(s), # 14 cap(s), 0 Refill(s), 09/07/22 8:58:00 EDT, Pharmacy: [facility]/pharmacy #[id number], 157.5, cm, 08/31/22 8:29:00 EDT, Height, 67.2 Start Date: 08/31/22 Stop Date: 09/07/22 Status: Ordered Start: 08-11-2022 End: 08-16-2022 cefdinir 300 mg oral capsule Dose : 300 mg = 1 cap(s), Oral, q12h, X 5 day(s), # 10 cap(s), 0 Refill(s), 08/16/22 12:19:00 EDT, Pharmacy: [facility]/pharmacy #[id number], Cystitis Hematuria, 157.5, cm, 08/11/22 11:42:00 EDT, Height, 67.1 Start Date: 08/11/22 Stop Date: 08/16/22 Status: Ordered cephalexin 500 mg oral capsule (4 sources) Cephalosporin Antibacterial Start: 11-12-2023 End: 11-19-2023 cephalexin 500 mg oral capsule Dose : 500 mg = 1 cap(s), Oral, q12h, X 7 day(s), # 14 cap(s), 0 Refill(s), 11/19/23 12:25:00 AM EST, 67.2 Start Date: 11/12/23 Stop Date: 11/19/23 Status: Ordered Start: 10-24-2023 End: 10-31-2023 cephalexin 500 mg oral capsu le Dose : 500 mg = 1 cap(s), Oral, q8h, X 7 day(s), # 21 cap(s), 0 Refill(s), 10/31/23 9:21:00 AM EST, [id number], UTI (urinary tract infection), 162, cm, 10/24/23 8:57:00 EST, Height, 67.8, kg, 10/24/23 8:57:00 EST, Dosing Weight Start Date: 10/24/23 Stop Date: 10/31/23 Status: Ordered Start: 11-09-2021 cephalexin 500 mg oral capsule 0 Refill(s), 87.6 Start Date: 11/09/21 Status: Ordered cetirizine hydrochloride 10 mg oral tablet (9 sources) Histamine-1 Receptor Antagonist cetirizine (ZyrTEC) 10 MG tablet Take by mouth daily. Active cholecalciferol 0.1 mg oral tablet (19 sources) Vitamin D Start: 12-28-2023 cholecalciferol 100 mcg (4000 intl units) oral tablet Dose : 100 mcg = 1 tab(s), Oral, Daily, # 90 tab(s), 1 Refill(s), [id number], cm, 11/15/23 9:24:00 EST, Height, kg, 11/15/23 9:35:00 EST, Dosing Weight Start Date: 12/28/23 Status: Ordered Start: 12-28-2023 cholecalcifero l 100 mcg (4000 intl units) oral tablet Dose : 100 mcg = 1 tab(s), Oral, Daily, # 90 tab(s), 1 Refill(s), Pharmacy: [facility]/pharmacy #[id number], 162, cm, 11/15/23 9:24:00 EST, Height, kg, 11/15/23 9:35:00 EST, Dosing Weight Start Date: 12/28/23 Status: Ordered Start: 10-05-2021 Vitamin D (3) 45 units oral capsule qDay, 0 Refill(s) Start Date: 10/05/21 Status: Ordered ciprofloxacin 500 mg oral tablet (2 sources) Quinolone Antimicrobial Start: 11-01-2023 End: 11-08-2023 ciprofloxacin 500 mg oral tablet Dose : 500 mg = 1 tab(s), Oral, q12h, X 7 day(s), # 14 tab(s), 0 Refill(s), 11/08/23 1:21:00 PM EST, Pharmacy: [facility]/pharmacy #[id number], 162, cm, 10/24/23 8:57:00 EST, Height, 67.2, kg, 10/29/23 9:19:00 EST, Dosing Weight Start Date: 11/01/23 Stop Date: 11/08/23 Status: Ordered citric acid 1002 mg / potassium citrate 3300 mg powder for oral solution (10 sources) Calculi Dissolution Agent, Anti-coagulant Start: 11-08-2022 take 1 dose by mouth once daily after mealtime potassium citrate-citric acid (Xdkri-K-Pqgyxhrn) 6066-9358 MG packet Indications: Renal calculus, left Take 1 packet by mouth daily. Mix with 6 oz of cold water. Take after meals. 90 each 1 11/08/2022 Active diazePAM 5 mg oral tablet (1 source) Benzodiazepine Start: 11-15-2023 End: 11-16-2023 Valium 5 mg oral tablet Dose : 5 mg = 1 tab(s), Oral, prep pharm, Take 30 momo pre-procedure (MRI) patient may take 1 tab(s)/dose; needs ride to and from MRI, X 1 day(s), # 1 tab(s), 0 Refill(s), 11/16/23 12:41:00 PM EST, Pharmacy: [facility]/pharmacy #[id number], Claustrophobia, 162, cm, 11/15/23 9:24:00 EST, Height, 70.1, kg, 11/15/23 9:35:00 EST, Dosing Weight Start Date: 11/15/23 Stop Date: 11/16/23 Status: Ordered docusate sodium 50 mg / sennosides, fci 8.6 mg oral tablet (3 sources) Start: 12-23-2022 Sennosides-Docusat e Sodium (Stool Softener-Stimulant Laxat) 8.6-50 mg Tablet Active 2 {tbl} PO TWICE A DAY 120 December 23, 2022 1:00am fluconazole 150 mg oral tablet (2 sources) Azole Antifungal Start: 01-06-2024 End: 2024 take 1 tablet by mouth once daily fluconazole (Diflucan) 150 MG tablet Take 1 tablet (150 mg) by mouth daily for 3 days. 3 tablet 0 01/06/2024 2024 Active 12 hr guaiFENesin 600 mg extended release oral tablet (9 sources) guaiFENesin (Mucinex) 600 MG 12 hr tablet Take 1,200 mg by mouth 2 times daily as needed for cough. Do not crush, chew, or split. Active ketorolac tromethamine 10 mg oral tablet (1 source) Nonsteroidal Anti-inflammatory Drug, Cyclooxygenase Inhibitor Start: 12-06-2023 End: 12-11-2023 take 1 tablet by mouth every six hours as needed for pain ketorolac (Toradol) 10 MG tablet Take 1 tablet (10 mg) by mouth every 6 hours as needed for severe pain (7-10) for up to 5 days. 10 tablet 0 12/06/2023 12/11/2023 Active lactobacillus acidophilus [id number] unt / pectin 100 mg oral tablet (3 sources) Start: 12-23-2022 take 1 tablet by mouth twice daily Acidophilus-Pectin , [place] 25 million cell -100 mg Tablet Active 1 {tbl} PO TWICE A DAY 0 December 23, 2022 1:00am levoFLOXacin 500 mg oral tablet (1 source) Quinolone Antimicrobial Start: 01-15-2024 End: 01-20-2024 levoFLOXacin 500 mg oral tablet Dose : 500 mg = 1 tab(s), Oral, q24h, X 5 day(s), # 5 tab(s), 0 Refill(s), 01/20/24 11:33:00 AM EST, Pharmacy: [facility]/pharmacy #[id number], 162, cm, 01/13/24 13:39:00 EST, Height, 66.9, kg, 01/13/24 13:39:00 EST, Dosing Weight Start Date: 01/15/24 Stop Date: 01/20/24 Status: Ordered levothyroxine sodium 0.1 mg oral tablet (20 sources) l-Thyroxine Start: 11-15-2023 Synthroid 100 mcg (0.1 mg) oral tablet Dose : 100 mcg = 1 tab(s), Oral, qDay, dispense name brand synthroid, # 90 tab(s), 1 Refill(s), [place], Pharmacy: [facility]/pharmacy #[id number], 162, cm, 11/15/23 9:24:00 EST, Height, kg, 11/15/23 9:35:00 EST, Dosing Weight Start Date: 11/15/23 Status: Ordered Start: 06-07-2023 Synthroid 100 mcg (0.1 mg) oral tablet Dose : 100 mcg = 1 tab(s), Oral, qDay, dispense name brand synthroid, # 90 tab(s), 1 Refill(s), [facility], [id number] 162, cm, 06/07/23 9:25:00 EDT, Height, kg, 06/07/23 9:25:00 EDT, Dosing Weight Start Date: 06/07/23 Status: Ordered Start: 11-25-2021 End: 01-04-2023 Synthroid 112 mcg (0.112 mg) oral tablet Dose : 112 mcg = 1 tab(s), Oral, qDay, dispense name brand synthroid, # 90 tab(s), 1 Refill(s), [facility], [id number], 161.4, cm, 07/06/22 9:59:00 EDT, Height, kg, 07/06/22 9:59:00 EDT, Dosing Weight Start Date: 07/08/22 Stop Date: 01/04/23 Status: Ordered Start: 11-25-2021 levothyroxine (Synthroid, Levoxyl) 112 MCG tablet Take 100 mcg by mouth every morning (before breakfast). 11/25/2021 Active Start: 11-25-2021 take 1 tablet by santos th once daily Levothyroxine 112 mcg tablet Active 112 ug PO DAILY December 30, 2021 1:00am Start: 05-20-2021 End: 11-16-2021 Synthroid 112 mcg (0.112 mg) oral tablet Dose : 112 mcg = 1 tab(s), Oral, qDay, dispense name brand synthroid, # 90 tab(s), 1 Refill(s), [facility], [id number], 162.5, cm, 05/20/21 10:29:00 EDT, Height, kg, 05/20/21 10:29:00 EDT, Dosing Weight Start Date: 05/20/21 Stop Date: 11/16/21 Status: Ordered Start: 06-10-2015 End: 12-30-2021 take 1 tablet by mouth once daily Levothyroxine 100 MCG tablet Discontinued 100 ug PO DAILY June 10, 2015 12:00am December 30, 2021 3:59pm Comment on above: TAKE 1 TABLET BY SANTOS TH EVERY DAY FOR 90 DAYS loperamide hydrochloride 0.2 mg/ml oral solution (1 source) Opioid Agonist loperamide (IMODIUM) 1 MG/5ML solution Take by mouth 4 times daily as needed for Diarrhea 0 Active LORazepam 0.5 mg oral tablet (20 sources) Benzodiazepine Start: 06-10-20 End: 02-22-20 take 1 tablet by mouth twice daily LORazepam (Ativan) 0.5 MG tablet Take 0.5 mg by mouth 2 times daily. 06/10/2015 Active Comment on above: Take 0.5 mg by mouth . losartan potassium 25 mg oral tablet (20 sources) Angiotensin 2 Receptor Alyce Start: 09-06-20 End: 05-13-20 losartan 25 mg oral tablet Dose : 50 mg = 2 tab(s), Oral, qDay, # 180 tab(s), 1 Refill(s), Pharmacy: [facility]/pharmacy #[id number], 162, cm, 11/15/23 9:24:00 EST, Height, kg, 11/15/23 9:35:00 EST, Dosing Weight Start Date: 11/15/23 Stop Date: 05/13/24 Status: Ordered Start: 08-31-2022 End: 08-14-2023 losartan 25 mg oral tablet D ose : 50 mg = 2 tab(s), Oral, qDay, # 180 tab(s), 1 Refill(s), Pharmacy: [facility]/pharmacy #[id number], 162, cm, 02/15/23 11:00:00 EDT, Height, kg, 02/15/23 11:00:00 EDT, Dosing Weight Start Date: 02/15/23 Stop Date: 08/14/23 Status: Ordered Start: 03-12-2022 take 50 mg by mouth once daily 50 mg, Oral, DAILY, First dose on Tue03/12/22 at 1730, Until Discontinued Start: 12-30-2021 take 50 mg by mouth once daily Losartan Active 50 MG PO DAILY December 30, 2021 12:00am Start: 12-29-2021 End: 06-27-2022 losartan 25 mg oral tablet D ose : 50 mg = 2 tab(s), Oral, qDay, # 180 tab(s), 1 Refill(s), Pharmacy: [facility]/pharmacy #[id number], 62.6, cm, 12/28/21 8:00:00 EST, Height, kg, 12/28/21 8:00:00 EST, Dosing Weight Start Date: 12/29/21 Stop Date: 06/27/22 Status: Ordered Start: 06-03-2021 End: 05-13-2024 take 2 tablets by mouth once daily losartan (Cozaar) 25 MG tablet Take 50 mg by mouth daily. 06/03/2021 Active Start: 06-03-2021 End: 11-30-2021 losartan 25 mg oral tablet D ose : 50 mg = 2 tab(s), Oral, qDay, # 30 tab(s), 0 Refill(s) Start Date: 10/05/21 Status: Ordered Comment on above: Take 50 mg by mouth. magnesium hydroxide 80 mg/ml oral suspension (9 sources) take 30 mL by mouth every twenty-four hours as needed for constipation magnesium hydroxide (Milk of Magnesia) 400 MG/5ML suspension Take 30 mL by mouth Daily as needed for constipation. Active meloxicam 15 mg oral tablet (20 sources) Nonsteroidal Anti-inflammatory Drug Start: 07-19-20 End: 10-17-20 take 1 tablet by mouth in the morning meloxicam (Mobic) 15 MG tablet Take 1 tablet by mouth in the morning. 0 07/19/2022 Active Start: 08-11-2021 End: 03-04-2022 take 1 tablet by mouth once daily Meloxicam 15 mg tablet Discontinued 15 mg PO DAILY December 30, 2021 1:00am March 04, 2022 2:12pm memantine hydrochloride 5 mg oral tablet (9 sources) B-iihyou-Q-aspartate Receptor Antagonist memantine (Namenda) 5 MG tablet Take by mouth 2 times daily. Active mirtazapine 7.5 mg oral tablet (12 sources) Start: 01-30-2024 End: 02-29-2024 mirtazapine 7.5 mg oral tablet Dose : 15 mg = 2 tab(s), Oral, qHS, new dose, # 60 tab(s), 0 Refill(s), [id number], 01/13/24 13:39:00 EST, Height, kg, 01/13/24 13:39:00 EST, Dosing Weight Start Date: 01/30/24 Stop Date: 02/29/24 Status: Ordered Start: 01-13-2024 mirtazapine 7. 5 mg oral tablet Dose : 7.5 mg = 1 tab(s), Oral, qHS, # 30 tab(s), 0 Refill(s), [id number], johnathan Hedrick, 01/13/24 13:39:00 EST, Height, kg, 01/13/24 13:39:00 EST, Dosing Weight Start Date: 01/13/24 Status: Ordered take 1 tablet by santos once daily mirtazapine (Remeron) 15 MG tablet Take 15 mg by mouth Nightly. Active morphine sulfate (PF) injection 2 mg (1 source) Start: 03-12-2022 morphine sulfate (PF) injection 2 mg mupirocin 0.02 mg/mg topical ointment (1 source) RNA Synthetase Inhibitor Antibacterial Start: 03-15-2022 End: 03-25-2022 mupirocin (BACTROBAN) 2 % ointment Apply 1 application to affected area three times daily for 10 days. 30 g 0 03/15/2022 03/25/2022 Active Comment on above: Apply 1 application to affected area three times daily for 10 days. nitrofurantoin, macrocrystals 25 mg / nitrofurantoin, monohydrate 75 mg oral capsule (7 sources) Nitrofuran Antibacterial Start: 02-18-2025 End: 02-23-2025 take 1 capsule by mouth twice daily nitrofurantoin, macrocrystal-monohy drate, (Macrobid) 100 MG capsule Indications: Urinary tract infection without hematuria, site unspecified Take 1 capsule (100 mg) by mouth 2 times daily for 5 days. 10 capsule 02/18/2025 02/23/2025 Active ondansetron (ZOFRAN-ODT) disintegrating tablet 4 mg (1 source) Start: 03-12-2022 ondansetron (ZOFRAN-ODT) disintegrating tablet 4 mg ondansetron 4 mg oral tablet, disintegrating (18 sources) Start: 02-22-2022 End: 05-23-2022 ondansetron 4 mg oral tablet, disintegrating Dose : 4 mg = 1 tab(s), Oral, q8h, PRN as needed for nausea/vomiting, X 30 day(s), # 60 tab(s), 2 Refill(s), 05/23/22 10:01:00 EDT, Pharmacy: [facility]/pharmacy #[id number], 162, cm, 02/22/22 9:24:00 EDT, Height, kg, 02/22/22 9:24:00 EDT, Dosing Weight Start Date: 02/22/22 Stop Date: 05/23/22 Status: Ordered Start: 03-21-2021 ondansetron 4 mg oral tablet, disintegrating Dose : 4 mg = 1 tab(s), Oral, q6h, PRN Nausea/Vomiting, # 20 tab(s), 0 Refill(s) Start Date: 03/21/21 Status: Ordered oxybutynin chloride 5 mg oral tablet (9 sources) Cholinergic Muscarinic Antagonist oxybutynin (Ditropan ) 5 MG tablet Take by mouth every morning. Active pantoprazole 40 mg delayed release oral tablet (20 sources) Proton Pump Inhibitor Start: 11-19-20 End: 12-15-19 take 1 tablet by mouth every twenty-four hours as needed pantoprazole (ProtoNix) 40 MG EC tablet Take 40 mg by mouth Daily as needed. 11/19/2021 Active Comment on above: Take 40 mg by mouth. phenazopyridine hydrochloride 200 mg delayed release oral tablet (7 sources) Start: 01-06-20 End: 01-09-20 take 1 tablet by mouth three times daily as needed for muscle spasms phenazopyridine (Pyridium) 200 MG tablet Take 1 tablet (200 mg) by mouth 3 times daily as needed for bladder spasms (and dysuria) for up to 3 days. 10 tablet 0 01/06/2024 2024 Active Start: 12-06-2023 End: 12-16-2023 take 1 tablet by mouth three times daily as needed for muscle spasms phenazopyridine (Pyridium) 200 MG tablet Take 1 tablet (200 mg) by mouth 3 times daily as needed for bladder spasms for up to 10 days. 15 tablet 0 12/06/2023 12/16/2023 Active Start: 11-20-2023 End: 11-23-2023 Azo-Standard 95 mg oral tabl et Dose : 95 mg = 1 tab(s), Oral, BID, X 3 day(s), # 6 tab(s), 0 Refill(s), 11/23/23 2:00:00 PM EST Start Date: 11/20/23 Stop Date: 11/23/23 Status: Ordered Start: 11-07-2023 End: 11-10-2023 Pyridium 100 mg oral tablet Dose : 100 mg = 1 tab(s), Oral, TID, can make urine orange, this is normal, X 3 day(s), # 9 tab(s), 0 Refill(s), 11/10/23 11:52:00 AM EST, Pharmacy: [facility]/pharmacy #[id number], 162, cm, 10/24/23 8:57:00 EST, Height, kg, 10/29/23 9:19:00 EST, Dosing Weight Start Date: 11/07/23 Stop Date: 11/10/23 Status: Ordered polyethylene glycol 3350 51983 mg powder for oral solution (20 sources) Osmotic Laxative Start: 10-01-2022 End: 03-30-2023 take 17 doses by mouth twice daily MiraLax oral powder for reconstitution Dose : 17 gram(s) =, Oral, BID, dissolve in water before taking, X 30 day(s), # 1,020 gram(s), 5 Refill(s), 03/30/23 16:19:00 EDT, [facility] [id number], 157.5, cm, 08/31/22 8:29:00 EDT, Height Start Date: 10/01/22 Stop Date: 03/30/23 Status: Ordered Start: 03-12-2022 take 17 doses by santos once daily MiraLax oral powder for reconstitution Dose : 17 gram(s) =, Oral, qDay, 0 Refill(s) Start Date: 05/20/22 Status: Ordered Start: 11-22-2017 take 17 doses by santos once daily MiraLax oral powder for reconstitution Dose : 17 gram(s) =, Oral, Daily Start Date: 11/22/17 Status: Ordered Start: 06-10-2015 End: 03-04-2022 take 17 g by mouth once daily Polyethylene Glycol 3350 17 GM packet Discontinued 17 g PO DAILY June 10, 2015 12:00am March 04, 2022 2:11pm microencapsulated potassium chloride 20 meq extended release oral tablet (20 sources) Start: 12-23-2022 Potassium Chlo ride (Klor-Con M20) 20 mEq Tablet,Er Particles/Crystals Active 20 meq PO DAILY WITH MEALS December 23, 2022 1:00am Start: 03-14-2022 End: 03-14-2022 potassium chloride 10 mEq/10 0 mL IVPB (Peripheral Line) Start: 03-14-2022 End: 03-14-2022 potassium chloride (KLOR-CON M) extended release tablet 40 mEq Start: 03-09-2022 take 1 tablet by [facility] in the morning potassium chloride CR (Klor-Con) 10 MEQ ER tablet Take 10 mEq by mouth in the morning. 0 03/09/2022 Active take 2 tablets by mo [facility] once daily potassium chloride CR (Klor-Con) 10 MEQ ER tablet Take 20 mEq by mouth daily. Do not crush, chew, or split. Active Comment on above: Take 10 mEq by mouth once daily. simethicone 80 mg chewable tablet (9 sources) take 2 tablets by mouth every six hours as needed simethicone (Mylicon) 80 MG chewable tablet Chew 160 mg every 6 hours as needed for flatulence. Active sulfamethoxazole 800 mg / trimethoprim 160 mg oral tablet (2 sources) Dihydrofolate Reductase Inhibitor Antibacterial, Sulfonamide Antimicrobial Start: 10-29-20 End: 11-08-20 take 1 tablet by mouth twice daily Bactrim DS 800 mg-160 mg oral tablet Dose = 1 tab(s), Oral, BID, X 10 day(s), # 20 tab(s), 0 Refill(s), Pharmacy: [facility]/pharmacy #[id number], 162, cm, 10/24/23 8:57:00 EST, Height, 67.2, kg, 10/29/23 9:19:00 EST, Dosing Weight Start Date: 10/29/23 Stop Date: 11/08/23 Status: Ordered tamsulosin hydrochloride 0.4 mg oral capsule (20 sources) alpha-Adrenergic Alyce Start: 02-20-20 End: 05-20-20 take 1 capsule by mouth once daily tamsulosin (Flomax) 0.4 MG 24 hr capsule Take 1 capsule (0.4 mg) by mouth daily. 30 capsule 2 02/19/2025 05/20/2025 Active Start: 01-06-2024 End: 01-11-2024 take 1 capsule by mouth once daily tamsulosin (Flomax) 0.4 MG 24 hr capsule Take 1 capsule (0.4 mg) by mouth daily for 5 days. 5 capsule 0 01/06/2024 01/11/2024 Active Start: 12-06-2023 End: 12-16-2023 take 1 capsule by mouth once daily tamsulosin (Flomax) 0.4 MG 24 hr capsule Take 1 capsule (0.4 mg) by mouth daily for 10 days. 10 capsule 0 12/06/2023 12/16/2023 Active Start: 03-14-2022 take 1 capsule by mo uth every twenty-four hours in the morning tamsulosin (Flomax) 0.4 MG 24 hr capsule Take 1 capsule by mouth in the morning. 0 03/14/2022 Active Start: 03-12-2022 End: 03-28-2022 take 1 capsule by mouth once daily tamsulosin (FLOMAX) 0.4 MG capsule Take 1 capsule by mouth daily for 14 days 14 capsule 0 03/14/2022 Active Comment on above: Take 0.4 mg by mouth . vitamin b12 0.5 mg oral tablet (9 sources) Vitamin B12 cyanocobalamin ( Vitamin B-12) 500 MCG tablet Take by mouth every morning. Active Vitamin C 500 mg oral tablet (10 sources) Start: 11-15-2023 End: 05-13-2024 Vitamin C 500 mg oral tablet Dose : 500 mg = 1 tab(s), Oral, qDay, # 90 tab(s), 1 Refill(s), Pharmacy: [facility]/pharmacy #[id number], 162, cm, 11/15/23 9:24:00 EST, Height, kg, 11/15/23 9:35:00 EST, Dosing Weight Start Date: 11/15/23 Stop Date: 05/13/24 Status: Ordered Start: 11-07-2023 Vitamin C 500 mg oral tablet Dose : 500 mg = 1 tab(s), Oral, qDay, # 30 tab(s), 0 Refill(s), Pharmacy: [facility]/pharmacy #[id number], 162, cm, 10/24/23 8:57:00 EST, Height, kg, 10/29/23 9:19:00 EST, Dosing Weight Start Date: 11/07/23 Status: Ordered Completed/Discontinued Medications Medication Drug Class(es) Dates Sig (Normalized) Sig (Original) acetaminophen 500 mg oral tablet (20 sources) Start: 02-19-2025 End: 02-19-2025 take 500 mg by mouth once, then take 4000 mg by mouth every twenty-four hours 500 mg, Oral, Once, On Tue02/19/25 at 1230, For 1 dose, Preprocedure, Maximum dose of acetaminophen is 4000 mg from all sources in 24 hours. Do not administer if patient has taken tylenol Start: 01-06-2024 End: 01-06-2024 acetaminophen (Tylenol) tabl et 1,000 mg Start: 12-06-2023 End: 12-06-2023 acetaminophen (Tylenol) tabl et 1,000 mg Start: 12-23-2022 take 2 tablets by mo uth every eight hours Acetaminophen 500 mg Tablet Active 1000 mg PO EVERY 8 HOURS 0 December 23, 2022 1:00am Start: 12-23-2022 take 1000 mg by mout h every eight hours Acetaminophen Active 1000 MG PO EVERY 8 HOURS 0 December 23, 2022 12:00am Start: 03-12-2022 End: 03-12-2022 take 1000 mg by mouth every six hours, then take 4000 mg by mouth every twenty-four hours 1,000 mg, Oral, EVERY 6 HOURS, First dose on Tue03/12/22 at 1730, Until Discontinued Maximum dose of acetaminophen is 4000 mg from all sources in 24 hours. Post-op Start: 12-30-2021 End: 12-23-2022 take 1 tablet by mouth once as needed Acetaminophen 325 mg tablet Discontinued 325 mg PO ONCE as needed December 30, 2021 1:00am December 23, 2022 2:02pm Start: 11-22-2017 Tylenol Oral S tart Date: 11/22/17 Status: Ordered Start: 11-22-2017 acetaminophen (Tylenol) 325 MG tablet Take by mouth every 6 hours as needed. 11/22/2017 Active take 2 tablets by [facility] every six hours as needed for pain acetaminophen (TYLENOL) 325 MG tablet Take 650 mg by mouth every 6 hours as needed for Pain 0 Active Comment on above: Take by mouth. ALPRAZolam 0.25 mg disintegrating oral tablet (6 sources) Benzodiazepine Start: 02-19-2025 End: 02-19-2025 take 0.25 mg by mouth once as needed for anxiety 0.25 mg, Oral, Once PRN, anxiety, Starting on Tue02/19/25 at 1158, For 1 dose, Preprocedure, Please do not administer prior to obtaining consent and/or history and physical. Start: 01-06-2024 End: 01-06-2024 ALPRAZolam (Xanax) disintegr ating tablet 0.25 mg Start: 12-06-2023 End: 12-06-2023 ALPRAZolam (Xanax) disintegr ating tablet 0.25 mg Start: 03-12-2022 End: 03-12-2022 ALPRAZolam (NIRAVAM) dissolv able tablet 0.25 mg amLODIPine 5 mg oral tablet (20 sources) Dihydropyridine Calcium Channel Alyce Start: 03-12-2022 take 2.5 mg by mouth once daily 2.5 mg, Oral, DAILY, First dose on Tue03/12/22 at 1730, Until Discontinued Start: 02-22-2022 End: 05-13-2024 take 1 tablet by mouth once daily amLODIPine (Norvasc) 5 MG tablet Take 5 mg by mouth daily. 02/22/2022 Active Start: 02-22-2022 End: 09-18-2022 take 1 tablet by mouth once daily Amlodipine 2.5 mg tablet Discontinued 2.5 mg PO DAILY March 04, 2022 12:00am June 10, 2022 11:36am take 2 tablets by mo ut once daily amLODIPine (NORVASC) 2.5 MG tablet Take 5 mg by mouth daily 0 Active Comment on above: Take 2.5 mg by mouth . atenolol 25 mg oral tablet (20 sources) beta-Adrenergic Alyce Start: 03-11-2022 End: 04-14-2022 take 2 tablets by mouth at dinner Atenolol 25 mg tablet Discontinued 50 mg PO WITH DINNER March 11, 2022 8:37am April 14, 2022 2:27pm Start: 03-11-2022 End: 04-14-2022 take 50 mg by mouth at dinner Atenolol Discontinued 50 MG PO WITH DINNER March 11, 2022 7:37am April 14, 2022 1:27pm Start: 06-10-2015 End: 05-22-2023 take 1 tablet by mouth at dinner Atenolol 25 mg tablet Discontinued 25 mg PO WITH DINNER April 14, 2022 2:27pm June 10, 2022 11:36am Comment on above: Indications: evening atropine sulfate 0.025 mg / diphenoxylate hydrochloride 2.5 mg oral tablet (3 sources) Anticholinergic, Cholinergic Muscarinic Antagonist, Antidiarrheal Start: 10-30-20 End: 11-02-20 take 1 tablet by mouth four times daily as needed Lomotil 2.5 mg-0.025 mg oral tablet 1 tab(s), Oral, QID, PRN as needed for loose stool, X 3 day(s), # 10 tab(s), 0 Refill(s), 11/02/21 19:31:00 EST, 88.1 Start Date: 10/30/21 Stop Date: 11/02/21 Status: Ordered calcium chloride 0.0014 meq/ml / potassium chloride 0.004 meq/ml / sodium chloride 0.103 meq/ml / sodium lactate 0.028 meq/ml injectable solution (10 sources) Start: 02-20-20 End: 02-20-20 take 125 mL intravenously every hour 125 mL/hr, IntraVENous, Continuous, Starting on Tue02/19/25 at 1515, Recovery (only) Start: 01-06-2024 End: 01-06-2024 lactated ringers infusion Start: 12-06-2023 End: 12-06-2023 lactated Ringer's (LR) infus ion Start: 03-12-2022 End: 03-12-2022 lactated ringers infusion ceFAZolin 2000 mg injection (3 sources) Cephalosporin Antibacterial Start: 03-12-2022 End: 03-13-2022 2,000 mg, IntraVENous, EVERY 8 HOURS, 3 doses, First dose on Tue03/12/22 at 2200, Last dose on Tue03/13/22 at 1400 Antimicrobial Indications: Surgical Prophylaxis Start: 03-12-2022 End: 03-12-2022 ceFAZolin (ANCEF) 2000 mg in dextrose 4 % 100 mL IVPB (premix) cholestyramine 4 g/5 g oral powder for reconstitution (15 sources) Start: 10-23-2021 End: 11-06-2021 cholestyramine 4 g/5 g oral powder for reconstitution 1 packet(s), Oral, BID, # 28 packet(s), 0 Refill(s), Pharmacy: [facility]/pharmacy #[id number], 158, cm, 10/05/21 9:44:00 EST, Height, kg, 10/05/21 9:44:00 EST, Dosing Weight Start Date: 10/23/21 Stop Date: 11/06/21 Status: Ordered Start: 09-09-2021 End: 09-23-2021 cholestyramine 4 g/5 g oral powder for reconstitution 1 packet(s), Oral, BID, # 28 packet(s), 0 Refill(s), Pharmacy: [facility]/pharmacy #[id number], 161, cm, 09/08/21 15:25:00 EDT, Height, kg, 09/08/21 15:25:00 EDT, Dosing Weight Start Date: 09/09/21 Stop Date: 09/23/21 Status: Ordered clonazePAM 0.5 mg oral tablet (1 source) Benzodiazepine End: 03-14-2022 take 1 tablet by mouth twice daily as needed clonazePAM (KLONOPIN) 0.5 MG tablet Take 0.5 mg by mouth 2 times daily as needed. 0 03/14/2022 Discontinued (Stop Taking at Discharge) clotrimazole 20 mg/ml vaginal cream (1 source) Azole Antifungal Start: 11-22-2023 End: 11-25-2023 clotrimazole 2% vaginal cream with applicator Dose = 1 doris, Vaginal, qHS, X 3 day(s), # 21 gram(s), 0 Refill(s) Start Date: 11/22/23 Stop Date: 11/25/23 Status: Ordered 1 ml diphenhydrAMINE hydrochloride 50 mg/ml cartridge (4 sources) Histamine-1 Receptor Antagonist Start: 02-19-2025 End: 02-19-2025 12.5 mg, IntraVENous, Once PRN, itching, Starting on Tue02/19/25 at 1503, For 1 dose, Recovery (only) Start: 01-06-2024 End: 01-06-2024 diphenhydrAMINE (BENADryl) i njection 12.5 mg 0.4 ml enoxaparin sodium 100 mg/ml prefilled syringe (1 source) Low Molecular Weight Heparin Start: 03-13-2022 inject 40 mg by subcutaneous injection once daily 40 mg, SubCUTAneous, DAILY, First dose on 03/13/22 at 0900, Until Discontinued, Post-op famotidine 20 mg oral tablet (5 sources) Histamine-2 Receptor Antagonist Start: 01-06-2024 End: 01-06-2024 famotidine (Pepcid) tablet 20 mg Start: 12-06-2023 End: 12-06-2023 famotidine (Pepcid) tablet 2 0 mg Start: 03-12-2022 End: 03-12-2022 famotidine (PEPCID) tablet 2 0 mg 2 ml fentaNYL 0.05 mg/ml injection (6 sources) Opioid Agonist Start: 02-19-2025 End: 02-19-2025 25 mcg, IntraVENous, Every 5 min PRN, moderate pain (4-6), Starting on Tue02/19/25 at 1503, For 3 doses, Recovery (only), Phase I and Phase II- Initial therapy for moderate pain (4-6). Restricted to a 90 minute time frame starting when the patient can verbally state their pain score. If after 2 doses the pain score does not decrease by more than one point, then call the provider. If oral meds are utilized, do not return to initial therapy medications. Start: 01-06-2024 End: 01-06-2024 fentaNYL (Sublimaze) injecti on 25 mcg Start: 01-06-2024 End: 01-06-2024 fentaNYL (Sublimaze) injecti on 50 mcg ibuprofen 200 mg oral tablet (1 source) Nonsteroidal Anti-inflammatory Drug Start: 03-12-2022 take 400 mg by mouth every six hours as needed 400 mg, Oral, EVERY 6 HOURS PRN, Starting on Tue03/12/22 at 1706, Until Discontinued, Pain Mild (1-3) Do not crush or chew. iopamidol (ISOVUE-300) 61 % injection 50 mL (1 source) Start: 03-12-2022 End: 03-12-2022 iopamidol (ISOVUE-300) 61 % injection 50 mL labetalol (Normodyne,Stiles date) injection 5 mg (4 sources) Start: 02-19-2025 End: 02-19-2025 labetalol (Normodyne,Trandate ) injection 5 mg Start: 01-06-2024 End: 01-06-2024 labetalol (Normodyne,Trandat e) injection 5 mg 10 ml lidocaine hydrochloride 10 mg/ml injection (1 source) Antiarrhythmic, Amide Local Anesthetic Start: 03-12-2022 End: 03-12-2022 lidocaine PF 1 % injection loratadine 10 mg oral tablet (1 source) End: 03-14-2022 take 1 tablet by mouth once daily loratadine (CLARITIN) 10 MG tablet loratadine 10 mg tablet Take 1 tablet every day by oral route for 30 days. 0 03/14/2022 Discontinued (Stop Taking at Discharge) 1 ml meperidine hydrochloride 25 mg/ml cartridge (2 sources) Opioid Agonist Start: 01-06-2024 End: 01-06-2024 meperidine (Demerol) injection 12.5 mg 2 ml ondansetron 2 mg/ml injection (20 sources) Serotonin-3 Receptor Antagonist Start: 02-19-2025 End: 02-19-2025 4 mg, IntraVENous, Once PRN, nausea, Starting on Tue02/19/25 at 1503, For 1 dose, Recovery (only), Initial antiemetic therapy. Start: 01-06-2024 End: 01-06-2024 ondansetron (Zofran) injecti on 4 mg Start: 03-21-2021 End: 03-14-2023 take 1 tablet by mouth every six hours as needed for nausea and vomiting Ondansetron 4 mg tablet,disintegrating Discontinued 4 mg PO EVERY 6 HOURS as needed for nausea and vomiting December 30, 2021 1:00am December 23, 2022 2:02pm Start: 03-21-2021 End: 05-23-2022 ondansetron 4 mg oral tablet , disintegrating Dose : 4 mg = 1 tab(s), Oral, q8h, PRN as needed for nausea/vomiting, X 30 day(s), # 60 tab(s), 2 Refill(s), 05/23/22 10:01:00 EDT, Pharmacy: [facility]/pharmacy #[id number], 162, cm, 02/22/22 9:24:00 EDT, Height, kg, 02/22/22 9:24:00 EDT, Dosing Weight Start Date: 02/22/22 Stop Date: 05/23/22 Status: Ordered Comment on above: Take by mouth. oxyCODONE hydrochloride 5 mg oral tablet (8 sources) Opioid Agonist Start: 02-19-2025 End: 02-19-2025 take 1 tablet by mouth every four hours as needed for pain and pain 5 mg, Oral, Every 4 hours PRN, moderate pain (4-6), severe pain (7-10), Starting on Tue02/19/25 at 1503, For 1 dose, Recovery (only), PHASE II Start: 01-06-2024 End: 01-06-2024 oxyCODONE (Roxicodone) immed iate release tablet 5 mg Start: 03-12-2022 oxyCODONE (ANGEL ICODONE) immediate release tablet 5 mg Start: 06-16-2015 End: 03-04-2022 take 1 tablet by mouth every six hours as needed for pain Oxycodone 5 MG tablet Discontinued 5 mg PO EVERY 6 HOURS NEEDED as needed for Mod-Severe (Pain Scale 6-10) June 16, 2015 12:00am March 04, 2022 2:11pm 5 ml sodium chloride 9 mg/ml injection (20 sources) Start: 02-19-2025 End: 02-19-2025 10 mL, IntraVENous, Every 12 hours scheduled (2 times per day), First dose on Tue02/19/25 at 2100, Recovery (only) Start: 02-19-2025 End: 02-19-2025 10 mL, IntraVENous, Every 12 hours scheduled (2 times per day), First dose on Tue02/19/25 at 2100, Preprocedure Start: 02-19-2025 End: 02-19-2025 10 mL, IntraVENous, Every 12 hours scheduled (2 times per day), First dose on Tue02/19/25 at 2100, Recovery (only) Start: 02-19-2025 End: 02-19-2025 10 mL, IntraVENous, Every 12 hours scheduled (2 times per day), First dose on Tue02/19/25 at 2100, Preprocedure Start: 02-19-2025 End: 02-19-2025 500 mL, IntraVENous, at 1,00 0 mL/hr, Administer over 0.5 Hours, PRN, Anti-nausea, Starting on Tue02/19/25 at 1503, Recovery (only), Indications: Anti-nausea Start: 02-19-2025 End: 02-19-2025 take 100 mL intravenously every hour as needed, then take 20 mL intravenously every hour as needed 5-250 mL/hr, IntraVENous, PRN, if patient receiving piggyback infusions and maintenance fluids are not ordered OR KVO fluids to protect IV site / prevent frequent line interruptions/ long duration, Starting on Tue02/19/25 at 1503, Recovery (only), For piggyback infusion, administer at same rate as piggyback for a total of 25 mL. Enter 25 mL into dose field and piggyback rate into rate field of order. If piggyback is infusing at a rate less than 100 mL/hr, enter 25 mL into dose field and 100 mL/hr into rate field of order. For KVO fluids, enter rate of 20 mL/hr or less into rate field of order. Start: 02-19-2025 End: 02-19-2025 take 10 mL intravenously once as needed 10 mL, IntraVENous, PRN, line care, Starting on Tue02/19/25 at 1503, Recovery (only), After every IV line use Start: 02-19-2025 End: 02-19-2025 take 5-40 mL intravenously every twelve hours 5-40 mL, IntraVENous, Every 12 hours, First dose on Tue02/19/25 at 1200, Preprocedure, For Line Patency: Peripheral IV = 5 mL; Midline or Central Line = 10 mL/lumen. If following IV push medication, administer flush at same rate as the IV push. Flush volume is determined by type of infusion therapy being given. For non-viscous solutions use: Peripheral IV = 5 mL Midline or Central Line = 10 mL/lumen For viscous solutions (i.e. blood components, parenteral nutrition, contrast media, or after obtaining blood sample) use: Peripheral IV = 10 mL Midline or Central Line = 20 mL/lumen Start: 01-06-2024 End: 01-06-2024 sodium chloride 0.9 % bolus 500 mL Start: 01-06-2024 End: 01-06-2024 sodium chloride 0.9 % infusi on Start: 01-06-2024 End: 01-06-2024 sodium chloride 0.9% (NS) fl ush 10 mL Start: 12-06-2023 End: 12-06-2023 sodium chloride 0.9 % infusi on Start: 12-06-2023 End: 12-06-2023 sodium chloride 0.9% (NS) fl ush 10 mL Start: 03-12-2022 take 1 dose intraven ously twice daily 5-40 mL, IntraVENous, EVERY 12 HOURS SCHEDULED (2 times per day), First dose on Tue03/12/22 at 2100, Until Discontinued For Line Patency: Peripheral IV = 5 mL; Midline or Central Line = 10 mL/lumen. If following IV push medication, administer flush at same rate as the IV push. Flush volume is determined by type of infusion therapy being given. For non-viscous solutions use: Peripheral IV = 5 mL Midline or Central Line = 10 mL/lumen For viscous solutions (i.e. blood components, parenteral nutrition, contrast media, or after obtaining blood sample) use: Peripheral IV = 10 mL Midline or Central Line = 20 mL/lumen Post-op Start: 03-12-2022 End: 03-13-2022 IntraVENous, at 75 mL/hr, CONTINUOUS, Starting on Tue03/12/22 at 1730, Post-op Start: 03-12-2022 take 25 mL intraveno usly every hour as needed 25 mL, IntraVENous, at 100 mL/hr, PRN, If patient receiving piggyback infusions without ordered maintenance IV fluids or with frequent/long duration piggyback infusions, Starting on Tue03/12/22 at 1706 Administer at the same rate as the piggyback being infused. Post-op Start: 03-12-2022 take 5-40 mL intravenously onc e 5-40 mL, IntraVENous, PRN, Starting on Tue03/12/22 at 1706, Until Discontinued, Line Care After every IV line use Post-op technetium Tc-99m mertiatide (MAG3) radio-isotope injection 8 millicurie (2 sources) Start: 02-06-2024 End: 02-06-2024 technetium Tc-99m mertiatide (MAG3) radio-isotope injection 8 millicurie terazosin 1 mg oral capsule (20 sources) alpha-Adrenerg ic Alyce Start: 03-04-2022 End: 06-10-2022 take 2 capsules by mouth at bedtime Terazosin 1 mg capsule Discontinued 2 mg PO AT BEDTIME March 04, 2022 12:00am June 10, 2022 11:19am Start: 03-04-2022 End: 06-10-2022 take 2 mg by mouth at bedtime Terazosin Discontinued 2 MG PO AT BEDTIME March 03, 2022 11:00pm June 10, 2022 10:19am Start: 10-08-2021 End: 02-23-2022 terazosin 1 mg oral capsule Dose : 1 mg = 1 cap(s), Oral, qDay, decreased dose, # 90 cap(s), 0 Refill(s), Pharmacy: [facility]/pharmacy #[id number], 162.6, cm, 11/19/21 6:53:00 EST, Height, kg, 11/19/21 6:53:00 EST, Dosing Weight Start Date: 11/25/21 Stop Date: 02/23/22 Status: Ordered Start: 06-03-2021 End: 03-14-2022 take 1 capsule by mouth once daily Terazosin 2 mg capsule Discontinued 2 mg PO DAILY December 30, 2021 1:00am March 04, 2022 2:11pm traMADol hydrochloride 50 mg oral tablet (3 sources) Opioid Agonist Start: 12-22-2022 End: 12-23-2022 take 1 tablet by mouth every six hours as needed for pain Tramadol 50 mg Tablet Discontinued 50 mg PO EVERY 6 HOURS NEEDED as needed for Pain December 22, 2022 1:00am December 23, 2022 2:03pm Problems Active Problems Problem Classification Problem Date Documented Da te Episodic/Chronic Abdominal hernia (20 sources) Hiatal hernia 08-06-2019 Episodic Anxiety disorders (20 sources) Anxiety; Translations: [Anxiety disorder, unspecified] Onset: 2 03-11-2020 Chronic Blindness and vision defects (12 sources) Wears glasses 06-07-2023 Episodic Calculus of urinary tract (20 sources) Kidney stone; Translations: [Calculus of kidney] Onset: 2 01-08-2022 Episodic Cardiac dysrhythmias (3 sources) Cardiac arrhythmia; Translations: [Cardiac arrhythmia, unspecified] 03-04-2022 Chronic Cardiac dysrhythmias (4 sources) Palpitations; Translations: [Palpitations] 06-10-2022 Episodic Coagulation and hemorrhagic disorders (2 sources) Petechiae of skin; Translations: [Spontaneous ecchymoses] 05-12-2024 Episodic Congestive heart failure; nonhypertensive (20 sources) Diastolic dysfunction 01-18-2020 Chronic Disorders of lipid metabolism (20 sources) Hyperlipidemia; Translations: [Hyperlipidemia, unspecified] Onset: 2 02-04-2021 Chronic Disorders of teeth and jaw (20 sources) Dental caries 05-20-2021 Episodic E Codes: Fall (2 sources) Fall; Translations: [Unspecified fall, initial encounter] 01-05-2025 Episodic Esophageal disorders (2 sources) Gastro-esophageal reflux disease without esophagitis; Translations: [Gastro-esophageal reflux disease without esophagitis] Onset: 2 Chronic Essential hypertension (20 sources) Hypertensive disorder; Translations: [Essential (primary) hypertension] Onset: 2 08-11-2021 Chronic Fluid and electrolyte disorders (2 sources) Hypokalemia; Translations: [Hypokalemia] Onset: 4 Episodic Headache; including migraine (2 sources) Headache; Translations: [Headache] 01-05-2025 Episodic Heart valve disorders (2 sources) Other nonrheumatic mitral valve disorders; Translations: [Other nonrheumatic mitral valve disorders] Onset: 2 Chronic Hypertension with complications and secondary hypertension (14 sources) Hypertensive heart failure; Translations: [Hypertensive heart and chronic kidney disease without heart failure, with stage 1 through stage 4 chronic kidney disease, or unspecified chronic kidney disease] Onset: 5 02-15-2023 Chronic Malaise and fatigue (4 sources) Asthenia; Translations: [Other malaise] 12-22-2022 Episodic Mood disorders (3 sources) Recurrent major depression 01-13-2024 Chronic Nutritional deficiencies (20 sources) Vitamin D deficiency; Translations: [Vitamin D deficiency, unspecified] Onset: 4 07-24-2019 Chronic Osteoarthritis (20 sources) Arthritis; Translations: [Osteoarthritis] 02-17-2014 Chronic Other aftercare (1 source) Follow-up orthopedic assessment; Translations: [Aftercare following joint replacement surgery] Chronic Other aftercare (2 sources) Other roasterman (current) drug therapy; Translations: [Other correction (current) drug therapy] Onset: 4 Episodic Other and ill-defined heart disease (20 sources) Left atrial hypertrophy 2020 Chronic Other and ill-defined heart disease (20 sources) Left ventricular hypertrophy 2020 Chronic Other connective tissue disease (3 sources) History of total knee arthroplasty; Translations: [Presence of right artificial knee joint] 12-22-2022 Chronic Other connective tissue disease (1 source) Presence of right artificial knee joint; Translations: [Knee joint replacement] 12-30-2022 Chronic Other connective tissue disease (1 source) Artificial knee joint present; Translations: [Presence of right artificial knee joint] Chronic Other connective tissue disease (20 sources) Iliotibial band friction syndrome 08-11-2021 Episodic Other connective tissue disease (20 sources) Pain in calf 08-20-2019 Episodic Other connective tissue disease (20 sources) Swelling of lower limb 08-20-2019 Episodic Other connective tissue disease (13 sources) Myalgia caused by statin 02-15-2023 Episodic Other diseases of kidney and ureters (20 sources) Cyst of kidney 01-08-2022 Episodic Other diseases of kidney and ureters (9 sources) Hydronephrosis; Translations: [Unspecified hydronephrosis] 11-14-2023 Episodic Other diseases of kidney and ureters (7 sources) Obstruction of pelviureteric junction; Translations: [Crossing vessel and stricture of ureter without hydronephrosis] 02-06-2024 Episodic Other diseases of kidney and ureters (2 sources) Crossing vessel and stricture of ureter without hydronephrosis; Translations: [Crossing vessel and stricture of ureter without hydronephrosis] Onset: 5 Episodic Other gastrointestinal disorders (20 sources) Irritable bowel syndrome 07-24-2019 Chronic Other gastrointestinal disorders (3 sources) Diarrhea; Translations: [Diarrhea, unspecified] Onset: 1 Episodic Other gastrointestinal disorders (19 sources) Constipation 02-22-2022 Episodic Other injuries and conditions due to external causes (2 sources) Injury of head; Translations: [Unspecified injury of head, initial encounter] 01-05-2025 Episodic Other nervous system disorders (20 sources) Abnormal gait 08-18-2020 Episodic Other nutritional; endocrine; and metabolic disorders (19 sources) Body mass index 30+ - obesity 09-08-2021 Chronic Other nutritional; endocrine; and metabolic disorders (20 sources) Obesity 08-18-2020 Chronic Other nutritional; endocrine; and metabolic disorders (17 sources) Weight loss 07-06-2022 Episodic Other nutritional; endocrine; and metabolic disorders (7 sources) Overweight 11-15-2023 Episodic Other nutritional; endocrine; and metabolic disorders (7 sources) Overweight in adulthood with body mass index of 25 or more but less than 30 11-15-2023 Episodic Other screening for suspected conditions (not mental disorders or infectious disease) (20 sources) Electrocardiogram abnormal 2020 Episodic [place]-; endo-; and myocarditis; cardiomyopathy (except that caused by tuberculosis or sexually transmitted disease) (20 sources) Valvular regurgitation; Translations: [Heart valve disorder] 01-18-2020 Chronic Pulmonary heart disease (20 sources) Pulmonary hypertension; Translations: [Other secondary pulmonary hypertension] Onset: 5 01-18-2020 Chronic Residual codes; unclassified (20 sources) Insomnia 12-12-2019 Episodic Residual codes; unclassified (20 sources) Noncompliance with treatment 03-11-2020 Episodic Residual codes; unclassified (19 sources) Memory impairment 02-22-2022 Episodic Residual codes; unclassified (3 sources) Family history of coronary arteriosclerosis; Translations: [Family history of ischemic heart disease and other diseases of the circulatory system] 12-30-2021 Episodic Residual codes; unclassified (1 source) Family history of ischemic heart disease and other diseases of the circulatory system; Translations: [Family history of ischemic heart disease] 12-15-2022 Episodic Residual codes; unclassified (13 sources) Screening due 02-15-2023 Episodic Screening and history of mental health and substance abuse codes (3 sources) Tobacco use and exposure - finding 01-13-2024 Chronic Thyroid disorders (20 sources) Hypothyroidism; Translations: [Hypothyroidism, unspecified] Onset: 03-11-2020 Chronic Unclassified (20 sources) Patient encounter status 08-18-2020 Unclassified (20 sources) Prescribed medication regimen behavior finding 03-11-2020 Unclassified (20 sources) Statin not tolerated (context-dependent category) 11-18-2020 Unclassified (3 sources) Drug therapy finding 01-13-2024 Past or Other Problems Problem Classification Problem Date Documented Da te Episodic/Chronic Allergic reactions (3 sources) Allergic reaction; Translations: [Allergy, unspecified, initial encounter] Onset: 03-12-2022 Episodic Genitourinary symptoms and ill-defined conditions (20 sources) Blood in urine; Translations: [Microalbuminuria] Onset: 01-27-2022 08-11-2021 Episodic Immunizations and screening for infectious disease (2 sources) Encounter for screening for other viral diseases; Translations: [Encounter for screening for other viral diseases] Onset: 12-23-2023 Episodic Other injuries and conditions due to external causes (1 source) Encounter for examination and observation following other accident; Translations: [Encounter for examination and observation following other accident] Onset: 01-13-2025 Episodic Other nutritional; endocrine; and metabolic disorders (4 sources) Abnormal weight loss; Translations: [Abnormal weight loss] Onset: 03-12-2022 Episodic Other nutritional; endocrine; and metabolic disorders (2 sources) Body mass index (BMI) 29.0-29.9, adult; Translations: [Body mass index [BMI] 29.0-29.9, adult] Onset: 03-12-2022 Episodic Residual codes; unclassified (2 sources) Other amnesia; Translations: [Other amnesia] Onset: 12-23-2023 Episodic Urinary tract infections (11 sources) Urinary tract infectious disease; Translations: [Urinary tract infection, site not specified] Onset: 11-09-2021 Episodic Results Test Name Value Interpretation Reference Range Facility CBC W/Diff, Automatedon 07-0 Absolute Lymph 1.74 X10 3/uL Normal 0.83-4.51 [facility] Comment on above: Performed By: #### L 501.9520, L500.4050, L100.0100, L501.5200 #### [facility] [address] [place], [address] Absolute Neut 2.0 X10 3/uL Normal 2.0-7.7 [facility] Comment on above: Performed By: #### L [id number], L500.4050, L100.0100, L501.5200 #### [facility] [address] [place], [address] Basophils/100 WBC (Bld) 1.1 % High 0-1 [facility] Comment on above: Performed By: #### L [id number], L500.4050, L100.0100, [id number] #### [facility] [address] [place], [address] Eosinophils/100 WBC (Bld) 4.5 % Normal 0-5 [facility] Comment on above: Performed By: #### L [id number], L500.4050, L100.0100, [id number] #### [facility] [address] [place], [address] Erythrocyte distribution width (RBC) [Ratio] 13.2 % Normal 11.6-14.6 [facility] Comment on above: Performed By: #### L [id number], L500.4050, L100.0100, [id number] #### [facility] [address] [place], [address] Hematocrit (Bld) [Volume fraction] 37.3 % Normal 37-47 [facility] Comment on above: Performed By: #### L [id number], L500.4050, L100.0100, [id number] #### [facility] [address] [place], [address] Hemoglobin (Bld) [Mass/Vol] 12.5 g/dL Normal 12.0-15.0 [facility] Comment on above: Performed By: #### L [id number], L500.4050, L100.0100, L501.5200 #### [facility] [address] [place], [address] IG% 0.200 Normal 0.0-0.9 [facility] Comment on above: Result Comment: IG% - Immature Granulocytes (promyelocytes, myelocytes and metamyelocytes) > 1% indicates that a LEFT SHIFT is Present. Performed By: #### L 501.9520, L500.4050, L100.0100, L501.5200 #### [facility] [address] [place], [address] Lymphocytes/100 WBC (Bld) 39.5 % Normal 19-41 [facility] Comment on above: Performed By: #### L [id number], L500.4050, L100.0100, [id number] #### [facility] [address] [place], [address] MCH (RBC) [Entitic mass] 32.1 pg High 27.0-32.0 [facility] Comment on above: Performed By: #### L [id number], L500.4050, L100.0100, L501.5200 #### [facility] [address] [place], [address] MCHC (RBC) [Mass/Vol] 33.5 g/dL Normal 32-36 [facility] Comment on above: Performed By: #### L [id number], L500.4050, L100.0100, [id number] #### [facility] [address] [place], [address] MCV (RBC) [Entitic vol] 95.6 fL Normal 81-99 [facility] Comment on above: Performed By: #### L [id number], L500.4050, L100.0100, [id number] #### [facility] [address] [place], [address] Monocytes/100 WBC (Bld) 9.5 % Normal 0-10 [facility] Comment on above: Performed By: #### L 501.9520, L500.4050, L100.0100, [id number] #### [facility] [address] [place], [address] Neutrophils/100 WBC (Bld) 45.2 % Low 47-70 [facility] Comment on above: Performed By: #### L 501.9520, L500.4050, L100.0100, L501.5200 #### [facility] [address] [place], [address] Nucleated RBC (Bld) [#/Vol] 0 10*3/uL Normal 0-5 [facility] Comment on above: Performed By: #### L [id number], L500.4050, L100.0100, L501.5200 #### [facility] [address] [place], [address] Platelet mean volume (Bld) [Entitic vol] 9.4 fL Normal 6.2-12.0 [facility] Comment on above: Performed By: #### L [id number], L500.4050, L100.0100, L501.5200 #### [facility] [address] [place], [address] Platelets (Bld) [#/Vol] 242 10*3/uL Normal 150-450 [facility] Comment on above: Performed By: #### L 501.9520, L500.4050, L100.0100, [id number] #### [facility] [address] [place], [address] RBC (Bld) [#/Vol] 3.90 10*6/uL Low 4.2-5.4 [facility] Comment on above: Performed By: #### L 501.9520, L500.4050, L100.0100, [id number] #### [facility] [address] [place], [address] RDW SD 46.5 fl High 35.1-43.9 [facility] Comment on above: Performed By: #### L 501.9520, L500.4050, L100.0100, L501.5200 #### [facility] [address] [place], [address] WBC (Bld) [#/Vol] 4.4 10*3/uL Normal 4.4-11.0 [facility] Comment on above: Performed By: #### L 501.9520, L500.4050, L100.0100, L501.5200 #### [facility] [address] [place], [address] Comprehensive Metabolic [facility] 06-04-2025 Albumin [Mass/Vol] 4.0 g/dL Normal 3.4-4.8 [facility] Comment on above: Performed By: #### L 501.9520, L500.4050, L100.0100, L501.5200 #### [facility] [address] [place], [address] Albumin/Globulin [Mass ratio] 1.4 {ratio} Normal 0.9-2.4 [facility] Comment on above: Performed By: #### L 501.9520, L500.4050, L100.0100, L501.5200 #### [facility] [address] [place], [address] ALK PHOS 100 U/L Normal 35-104 [facility] Comment on above: Performed By: #### L 501.9520, L500.4050, L100.0100, L501.5200 #### [facility] [address] [place], [address] ALT [Catalytic activity/Vol] 14 U/L Normal <=34 [facility] Comment on above: Performed By: #### L 501.9520, L500.4050, L100.0100, L501.5200 #### [facility] [address] [place], [address] AST [Catalytic activity/Vol] 23 U/L Normal <=31 [facility] Comment on above: Performed By: #### L 501.9520, L500.4050, L100.0100, L501.5200 #### [facility] [address] [place], [address] Bilirubin [Mass/Vol] 0.53 mg/dL Normal 0.00-1.30 [facility] Comment on above: Performed By: #### L 501.9520, L500.4050, L100.0100, L501.5200 #### [facility] [address] [place], [address] BUN/CRE 21.5 RATIO High 10-20 [facility] Comment on above: Performed By: #### L 501.9520, L500.4050, L100.0100, L501.5200 #### [facility] [address] [place], [address] Calcium [Mass/Vol] 9.6 mg/dL Normal 7.6-11.0 [facility] Comment on above: Performed By: #### L 501.9520, L500.4050, L100.0100, L501.5200 #### [facility] [address] [place], [address] Chloride [Moles/Vol] 107 mmol/L Normal 98-108 [facility] Comment on above: Performed By: #### L 501.9520, L500.4050, L100.0100, L501.5200 #### [facility] [address] [place], [address] CO2 [Moles/Vol] 21.2 mmol/L Normal 21.0-32.0 [facility] Comment on above: Performed By: #### L 501.9520, L500.4050, L100.0100, L501.5200 #### [facility] [address] [place], [address] Creatinine [Mass/Vol] 0.76 mg/dL Normal 0.70-1.20 [facility] Comment on above: Performed By: #### L 501.9520, L500.4050, L100.0100, L501.5200 #### [facility] [address] [place], [address] GAP 11 Normal 5-15 [facility] Comment on above: Performed By: #### L 501.9520, L500.4050, L100.0100, L501.5200 #### [facility] [address] [place], [address] GFR/1.73 sq M.predicted among non-blacks MDRD (S/P/Bld) [Vol rate/Area] 81 mL/min/{1.73_m2} Normal >60 [facility] Comment on above: Result Comment: mL/m in/1.73m2 CKD-EPI Creatinine Equation (2020) Performed By: #### L 501.9520, L500.4050, L100.0100, L501.5200 #### [facility] [address] [place], [address] Globulin (S) [Mass/Vol] 2.9 g/dL Normal 2.2-4.2 [facility] Comment on above: Performed By: #### L 501.9520, L500.4050, L100.0100, L501.5200 #### [facility] [address] [place], [address] Glucose [Mass/Vol] 109 mg/dL High 70-99 [facility] Comment on above: Performed By: #### L 501.9520, L500.4050, L100.0100, L501.5200 #### [facility] [address] [place], [address] Potassium [Moles/Vol] 4.4 mmol/L Normal 3.3-5.1 [facility] Comment on above: Performed By: #### L 501.9520, L500.4050, L100.0100, L501.5200 #### [facility] [address] [place], [address] Sodium [Moles/Vol] 138 mmol/L Normal 133-145 [facility] Comment on above: Performed By: #### L 501.9520, L500.4050, L100.0100, L501.5200 #### [facility] [address] [place], [address] T PROT 6.9 g/dL Normal 5.9-8.4 [facility] Comment on above: Performed By: #### L 501.9520, L500.4050, L100.0100, L501.5200 #### [facility] [address] [place], [address] Urea nitrogen [Mass/Vol] 16 mg/dL Normal 4-19 [facility] Comment on above: Performed By: #### L 501.9520, L500.4050, L100.0100, L501.5200 #### [facility] [address] [place], [address] Magnesiumon 06-04-2025 Magnesium [Mass/Vol] 2.1 mg/dL Normal 1.5-2.2 [facility] Comment on above: Performed By: #### L 501.9520, L500.4050, L100.0100, L501.5200 #### [facility] [address] [place], [address] Thyroid Stim Hormone (TSH)on 06-04-2025 TSH 3.940 uIU/mL Normal 0.300-4.200 [facility] Comment on above: Performed By: #### L 501.9520, L500.4050, L100.0100, L501.5200 #### [facility] [address] [place], [address] 36on 03-06-2025 36 PT IS SCHEDULED FOR 02/26/26 SO THIS WILL HAVE A PRIOR AUTH DONE IN 1 YEAR FROM NOW. THANK YOU DDL [facility] 36 Your patient has bee n scheduled for their CT ABDOMEN PELVIS WO on 02-26-26 at [facility]. If testing requires an insurance authorization, the authorization must be in place 48 hours prior to the scheduled test or testing will be cancelled. Thank you, [facility] Scheduling [facility] Progress Noteon 03-06-2025 Progress Note Pt states she tolerates betadine prep well. UROJET 6 ML urethra [facility] 95706-494-07 LOT # [id number] EXPIRES 11/2026 ADMIN BY CHARAN DOBSON Pt tolerated well [facility] Anion gap in Serum or Plasma Ordered By: Nay Greenwood on 02-25-2025 Anion gap [Moles/Vol] 12 mmol/L - [facility] BUN/creatinine ratioOrdered By: Nay Greenwood on 02-25-2025 Urea nitrogen/Creatinine [Mass ratio] 14.2 mg/mg - [facility] Basic Metabolic Profile (BMP )on 02-25-2025 BUN/CRE 14.2 RATIO Normal 09-16 [facility] Comment on above: Order Comment: 136 Performed By: #### L 501.9520, L500.4050, L100.0100, L501.5200 #### [facility] [address] [place], [address] Calcium [Mass/Vol] 9.4 mg/dL Normal 7.6-11.0 [facility] Comment on above: Order Comment: 136 Performed By: #### L 501.9520, L500.4050, L100.0100, L501.5200 #### [facility] [address] [place], [address] Chloride [Moles/Vol] 107 mmol/L Normal 98-108 [facility] Comment on above: Order Comment: 136 Performed By: #### L 501.9520, L500.4050, L100.0100, L501.5200 #### [facility] [address] [place], [address] CO2 [Moles/Vol] 17.4 mmol/L Low 21.0-32.0 [facility] Comment on above: Order Comment: 136 Performed By: #### L 501.9520, L500.4050, L100.0100, L501.5200 #### [facility] [address] [place], [address] Creatinine [Mass/Vol] 0.79 mg/dL Normal 0.70-1.20 [facility] Comment on above: Order Comment: 136 Performed By: #### L 501.9520, L500.4050, L100.0100, L501.5200 #### [facility] [address] [place], [address] GAP 12 Normal 5-15 [facility] Comment on above: Order Comment: 136 Performed By: #### L 501.9520, L500.4050, L100.0100, L501.5200 #### [facility] [address] [place], [address] GFR/1.73 sq M.predicted among non-blacks MDRD (S/P/Bld) [Vol rate/Area] 77 mL/min/{1.73_m2} Normal >60 [facility] Comment on above: Order Comment: 136 Result Comment: mL/m in/1.73m2 CKD-EPI Creatinine Equation (2020) Performed By: #### L 501.9520, L500.4050, L100.0100, L501.5200 #### [facility] [address] [place], [address] Glucose [Mass/Vol] 106 mg/dL High 70-99 [facility] Comment on above: Order Comment: 136 Performed By: #### L 501.9520, L500.4050, L100.0100, L501.5200 #### [facility] [address] [place], [address] Potassium [Moles/Vol] 4.3 mmol/L Normal 3.3-5.1 [facility] Comment on above: Order Comment: 136 Performed By: #### L 501.9520, L500.4050, L100.0100, L501.5200 #### [facility] [address] [place], [address] Sodium [Moles/Vol] 137 mmol/L Normal 133-145 [facility] Comment on above: Order Comment: 136 Performed By: #### L 501.9520, L500.4050, L100.0100, L501.5200 #### [facility] [address] [place], [address] Urea nitrogen [Mass/Vol] 11 mg/dL Normal 4-19 [facility] Comment on above: Order Comment: 136 Performed By: #### L 501.9520, L500.4050, L100.0100, L501.5200 #### [facility] [address] [place], [address] CBC-Complete Blood Cnt No Coty martinez 02-25-2025 Erythrocyte distribution width (RBC) [Ratio] 14.0 % Normal 11.6-14.6 [facility] Comment on above: Order Comment: 136 Performed By: #### L 501.9520, L500.4050, L100.0100, L501.5200 #### [facility] [address] [place], [address] Hematocrit (Bld) [Volume fraction] 33.2 % Low 37-47 [facility] Comment on above: Order Comment: 136 Performed By: #### L 501.9520, L500.4050, L100.0100, L501.5200 #### [facility] [address] [place], [address] Hemoglobin (Bld) [Mass/Vol] 11.6 g/dL Low 12.0-15.0 [facility] Comment on above: Order Comment: 136 Performed By: #### L 501.9520, L500.4050, L100.0100, L501.5200 #### [facility] [address] [place], [address] MCH (RBC) [Entitic mass] 33.5 pg High 27.0-32.0 [facility] Comment on above: Order Comment: 136 Performed By: #### L 501.9520, L500.4050, L100.0100, L501.5200 #### [facility] [address] [place], [address] MCHC (RBC) [Mass/Vol] 34.9 g/dL Normal 32-36 [facility] Comment on above: Order Comment: 136 Performed By: #### L [id number], L500.4050, L100.0100, L501.5200 #### [facility] [address] [place], [address] MCV (RBC) [Entitic vol] 96.0 fL Normal 81-99 [facility] Comment on above: Order Comment: 136 Performed By: #### L 501.9520, L500.4050, L100.0100, L501.5200 #### [facility] [address] [place], [address] Platelet mean volume (Bld) [Entitic vol] 9.3 fL Normal 6.2-12.0 [facility] Comment on above: Order Comment: 136 Performed By: #### L [id number], L500.4050, L100.0100, L501.5200 #### [facility] [address] [place], [address] Platelets (Bld) [#/Vol] 280 10*3/uL Normal 150-450 [facility] Comment on above: Order Comment: 136 Performed By: #### L [id number], L500.4050, L100.0100, L501.5200 #### [facility] [address] [place], [address] RBC (Bld) [#/Vol] 3.46 10*6/uL Low 4.2-5.4 [facility] Comment on above: Order Comment: 136 Performed By: #### L 501.9520, L500.4050, L100.0100, L501.5200 #### [facility] [address] [place], [address] RDW SD 49.7 fl High 35.1-43.9 [facility] Comment on above: Order Comment: 136 Performed By: #### L 501.9520, L500.4050, L100.0100, L501.5200 #### [facility] [address] [place], [address] WBC (Bld) [#/Vol] 5.1 10*3/uL Normal 4.4-11.0 [facility] Comment on above: Order Comment: 136 Performed By: #### L [id number], L500.4050, L100.0100, L501.5200 #### [facility] [place] [address] [place], [address] Carbon dioxide, total [Moles /volume] in Central venous bloodOrdered By: Nay Greenwood on 02-25-2025 CO2 [Moles/Vol] 17.4 mmol/L Low 21.0-32.0 [facility] Chloride assayOrdered By: Manan Greenwood on 02-25-2025 Chloride [Moles/Vol] 107 mmol/L 98-108 [facility] Erythrocyte distribution wid th (RBC) [Ratio]Ordered By: Nay Greenwood on 02-25-2025 Erythrocyte distribution width (RBC) [Entitic vol] 49.7 fL High 35.1-43.9 [facility] Erythrocyte distribution wid th ratioOrdered By: Nay Greenwood on 02-25-2025 Erythrocyte distribution width (RBC) [Ratio] 14.0 % 11.6-14.6 [facility] GFR/1.73 sq M.predicted monica g non-blacks MDRD (S/P/Bld) [Vol rate/Area]Ordered By: Nay Greenwood on 02-25-2025 Estimated GFR (MDRD) Non-Af Amer 77 >60 [facility] Comment on above: mL/min/1.73m2 CKD-EP I Creatinine Equation (2020) Hematocrit Auto (Bld) [Volum e fraction]Ordered By: Nay Greenwood on 02-25-2025 Hematocrit (Bld) [Volume fraction] 33.2 % Low 37-47 [facility] Hemoglobin measurementOrdere d By: Nay Greenwood on 02-25-2025 Hemoglobin (Bld) [Mass/Vol] 11.6 g/dL Low 12.0-15.0 [facility] MCV (mean corpuscular volume ) determinationOrdered By: Nay Greenwood on 02-25-2025 MCV (RBC) [Entitic vol] 96.0 fL 81-99 [facility] Mean corpuscular hemoglobin (MCH) determinationOrdered By: Nay Greenwood on 02-25-2025 MCH (RBC) [Entitic mass] 33.5 pg High 27.0-32.0 [facility] Mean corpuscular hemoglobin concentration (MCHC) determinationOrdered By: Nay Greenwood on 02-25-2025 MCHC (RBC) [Mass/Vol] 34.9 g/dL 32-36 [facility] Mean platelet volume determi nationOrdered By: Nay Greenwood on 02-25-2025 Platelet mean volume (Bld) [Entitic vol] 9.3 fL 6.2-12.0 [facility] Platelet countOrdered By: Manan Greenwood on 02-25-2025 Platelets (Bld) [#/Vol] 280 10*3/uL 150-450 [facility] Potassium (Unsp spec) [Mass/ Vol]Ordered By: Nay Greenwood on 02-25-2025 Potassium [Moles/Vol] 4.3 mmol/L 3.3-5.1 [facility] RBC Auto (Bld) [#/Vol]Ordere d By: Nay Greenwood on 02-25-2025 RBC (Bld) [#/Vol] 3.46 10*6/uL Low 4.2-5.4 [facility] Serum creatinine measurement (mass/volume)Ordered By: Nay Greenwood on 02-25-2025 Creatinine [Mass/Vol] 0.79 mg/dL 0.70-1.20 [facility] Serum glucose measurement (m ass/volume)Ordered By: Nay Greenwood on 02-25-2025 Glucose [Mass/Vol] 106 mg/dL High 70-99 [facility] Serum or plasma calcium francois urement (mass/volume)Ordered By: Nay Greenwood on 02-25-2025 Calcium [Mass/Vol] 9.4 mg/dL 7.6-11.0 [facility] Serum or plasma urea nitroge n measurement (mass/volume)Ordered By: Nay Greenwood on 02-25-2025 Urea nitrogen [Mass/Vol] 11 mg/dL 4-19 [facility] Sodium levelOrdered By: Ele Greenwood on 02-25-2025 Sodium [Moles/Vol] 137 mmol/L 133-145 [facility] White blood cell (WBC) count Ordered By: Nay Greenwood on 02-25-2025 WBC (Bld) [#/Vol] 5.1 10*3/uL 4.4-11.0 [facility] 36on 02-22-2025 36 Patient's son Colton called back in on this message. Colton states that patient is in an extended care [place] facility and they are giving patient the antibiotic as prescribed. Colton didn't have any further questions or concerns at this time. [facility] 36 Please inform patien t of result when Pt/son returns call. [facility] 36 ----- Message from ALONDRA Yap CNP sent at 02/22/2025 7:09 AM EDT ----- Let her know the antibiotic she is on should cover her UTI Normal [facility] 36 LVM for patient to call office back. Please read TE to patient when call is returned. Thank you! [facility] 36 ----- Message from ALONDRA Yap CNP sent at 02/22/2025 7:09 AM EDT ----- Let her know the antibiotic she is on should cover her UTI [facility] 36on 02-20-2025 36 Scheduled 03/06/25 @09:20am [address] [facility] 36on 02-19-2025 36 Cysto, stent removal in 2 weeks [facility] No Panel Informationon 02-19 There is no interpretation needed for this exam. IMAGING Nursing Noteon 02-19-2025 Nursing Note Pt ambulated to bathroom with assist, pain tolerable, free from nausea. Attempted to call report to [facility], message left for RN. Will send DC instructions home with pt and discharge instructions reviewed with pts son at bedside and copy of instructions also given to son. Normal [facility] Nursing Note Attempted to call [facility] at [phone] four times preop and was unable to speak with anyone on the phone to verify if patient took any medications this morning. Spoke with Mariela M., RUG BACKING STENCILER to let know I was unable to verify any meds at this time. ERAS meds adjusted. Normal [facility] Op Noteon 02-19-2025 Op Note PreOp Dx Right renal calculi, Right UPJ obstruction PostOp Dx Same Operation Cystoscopy, retrograde pyelogram, flouroscopy, right ureteroscopy, laser lithotripsy, ureteral stent placement Surgeon Sarath Ramos MD Assist None EBL Minimal Drains 6 fr X 26cmJJ Gusman none Specimen urine culture Condition To PACU This is a 75 y.o. patient who presents with right renal calculi. After having a discussion on treatment options, risks and benefits, the patient wishes to proceed forward with surgical intervention Patient was brought to the operating room. A thorough time out was performed and everyone present was in agreement. Patient was placed on OR table. Anesthesia and lines were maintained by the anesthesia team. Patient was placed in the dorsal lithotomy position. Prepped and draped in usual fashion. Pressure points were padded. A cystourethroscope was inserted through the urethra and the bladder was inspected. Retrograde pyelograms were performed under fluoroscopic visualization on the right side. There was moderate hydronephrosis, and a UPJ obstruction due to high ureteral insertion A sensor wire was advanced to the level of the kidney. A 12/14 fr ureteral access sheath was advanced over the wire under fluoroscopy. A flexible ureteroscope was passed through the access sheath. The stones were visualized and laser lithotripsied using the holmium laser. It was noted there was no large stone fragments upon entering the kidney. There was however layering debris of tiny stone fragments in the mid, lower and upper pole These small stone debris was lasered using the TERESITA fiber to dust these further, and using aspiration through the ureteroscope some of the dust was able to be cleared A 6 fr X 26cmJJ was advanced over the wire through the cystoscope under fluoroscopic visualization. Once in position the wire was removed. A good curl was noted in the kidney and the bladder. The bladder was emptied and patient awoken from anesthesia. FU 1 week for stent removal She will likely to continue to develop laying debris in her kidney due to the UPJ obstruction, high ureteral insertion. If this would become symptomatic could consider CVAC to clear debris Normal [facility] URINE CULTUREon 03-25-2025 Bacteria identified Cx Nom (U) URINE CULTURE Reference Normal urogenital clarisse present ESCHERICHIA COLI >100,000 CFU/mL Escherichia coli (A) Organism: ESCHERICHIA COLI Antibiotic MEGGAN Interpretation Status Amoxicillin / Clavulanate <=2 ug/ml S F Ampicillin 4 ug/ml S F Ampicillin / Sulbactam <=2 ug/ml S F Aztreonam <=1 ug/ml S F Cefazolin 4 ug/ml I F Cefepime <=0.12 ug/ml S F Ceftriaxone <=0.25 ug/ml S F Ciprofloxacin <=0.06 ug/ml S F Ertapenem <=0.12 ug/ml S F Gentamicin <=1 ug/ml S F Levofloxacin <=0.12 ug/ml S F Meropenem <=0.25 ug/ml S F Nitrofurantoin <=16 ug/ml S F Piperacillin / Tazobactam <=4 ug/ml S F Trimethoprim / Sulfamethoxazole <=20 ug/ml S F [ S = SUSCEPTIBLE R = RESISTANT I = INTERMEDIATE S-DD = Susceptible-dose dependent NS = Non-susceptible NO = No Interpretation ] [facility] Comment on above: Performed By: #### L [id number] #### [employer] Operator: JULIO KNIGHT ([id number]) [address] 36on 02-18-2025 36 Pt's son is aware of infection and antibiotics. See other TE. [facility] 36 ----- Message from Kiara Wayne PA-C sent at 02/18/2025 7:39 AM EDT ----- Please call the patient and let her know The urine culture results were positive for a urinary tract infection. Antibiotic therapy has been prescribed and sent to the pharmacy with appropriate instructions. Thank you. [facility] 36 Called pt's son, no answer, left message regarding surgery tomorrow and that is still planned. Asked to call the office back with any questions. [facility] 36 Call returned buy evaristo Blackwell . Advised of results and recommendations . Son will not be able to pick remover medication until the end of the day . Pt is scheduled for surgery tomorrow . Please verify that surgery is still on even of patient receives only 2 doses of ordered Macrobid Normal [facility] 36 LVM verbatim per VIANEY Lawson. For patient to call office back for results. [facility] 36 ----- Message from Kiara Wayne PA-C sent at 02/18/2025 7:39 AM EDT ----- Please call the patient and let her know The urine culture results were positive for a urinary tract infection. Antibiotic therapy has been prescribed and sent to the pharmacy with appropriate instructions. Thank you. [facility] ECG 12-LEADon 02-18-2025 ECG 12-LEAD IMPRESSION: Sinus rhythm Atrial premature complexes in couplets Left ventricular hypertrophy Inferior infarct, old Anterior infarct, old Electronically Signed On 02-18-2025 12:43:43 EDT by Victor M Lopez [facility] [id number] 02-15-2025 [id number] Medication List Accurate as of February 15, 2025 10:05 AM. Always use your most recent med list. acetaminophen 325 MG tablet Commonly known as: Tylenol Medication Adjustments for Surgery: Take morning of surgery Notes to patient: Only if needed aluminum & magnesium hydroxide-simethicone 200-200-20 MG/5ML oral suspension Commonly known as: Mylanta Medication Adjustments for Surgery: Hold morning of surgery amLODIPine 5 MG tablet Commonly known as: Norvasc Medication Adjustments for Surgery: Take morning of surgery ascorbic acid 500 MG chewable tablet Commonly known as: Vitamin C Notes to patient: Not taking bisacodyl 10 MG suppository Commonly known as: Dulcolax Medication Adjustments for Surgery: Hold morning of surgery busPIRone 5 MG tablet Commonly known as: Buspar Medication Adjustments for Surgery: Take morning of surgery cetirizine 10 MG tablet Commonly known as: ZyrTEC Medication Adjustments for Surgery: Take morning of surgery cyanocobalamin 500 MCG tablet Commonly known as: Vitamin B-12 Medication Adjustments for Surgery: Hold morning of surgery guaiFENesin 600 MG 12 hr tablet Commonly known as: Mucinex Medication Adjustments for Surgery: Take morning of surgery levothyroxine 112 MCG tablet Commonly known as: Synthroid, Levoxyl Medication Adjustments for Surgery: Take morning of surgery LORazepam 0.5 MG tablet Commonly known as: Ativan Notes to patient: Not taking losartan 25 MG tablet Commonly known as: Cozaar Medication Adjustments for Surgery: Hold morning of surgery magnesium hydroxide 400 MG/5ML suspension Commonly known as: Milk of Magnesia Medication Adjustments for Surgery: Hold morning of surgery memantine 5 MG tablet Commonly known as: Namenda Medication Adjustments for Surgery: Take night before surgery mirtazapine 15 MG tablet Commonly known as: Remeron Medication Adjustments for Surgery: Take morning of surgery oxybutynin 5 MG tablet Commonly known as: Ditropan Medication Adjustments for Surgery: Take morning of surgery pantoprazole 40 MG EC tablet Commonly known as: ProtoNix Medication Adjustments for Surgery: Take morning of surgery polyethylene glycol (PEG) 3350 17 g packet Commonly known as: Miralax Medication Adjustments for Surgery: Hold morning of surgery potassium chloride CR 10 MEQ ER tablet Commonly known as: Klor-Con Medication Adjustments for Surgery: Hold morning of surgery simethicone 80 MG chewable tablet Commonly known as: Mylicon Medication Adjustments for Surgery: Hold morning of surgery Additional Instructions: FACITLITY:[facility] INSTRUCTIONS FOR:Surinder Rasheed (1950) DATE: 02/19/2025 ARRIVAL TIME: will call virgil Blackwell day before to confirm arrival time SURGERY TIME: will notify virgil schaeffer before SITE:[address] Please use [employer] parking-will validate day of surgery SHOWER WITH AN ANTIBACTERIAL SOAP THE MORNING OF SURGERY. AFTER SHOWERING NO MAKEUP,LOTION, MATSON, CREAMS, DEODORANT OR BODY SPRAYS. BRUSH TEETH AND FLOSS THE MORNING OF SURGERY. WEAR CLEAN CLOTHES TO THE HOSPITAL. DO NOT WEAR CONTACT LENSES THE DAY OF SURGERY. NO SMOKING/ALCOHOL/THC 24 HOURS PRIOR TO SURGERY. NOTHING TO EAT AFTER MIDNIGHT YOU MAY DRINK CLEAR LIQUIDS UP TO 2 HOURS BEFORE SURGERY INCLUDING: WATER, APPLE OR CRANBERRY JUICE,SODA, CLEAR TEA/ BLACK COFFEE, GATORADE/POWERADE. NO CREAM,MILK OR DAIRY. NO ORANGE JUICE, BROTH, JELLO, APPLESAUCE, PUDDING. NO TUBE FEED OR THICKENER. NO CANDY, MINTS OR GUM. PLEASE SEND PATIENT'S MEDICATION LIST ON THE DAY OF SURGERY. INCLUDE THE DATE AND TIME MEDICATION WAS LAST GIVEN TO PATIENT. NO MOTRIN, IBUPROFEN OR ADVIL 24 HOURS PRIOR TO SURGERY. NO ALEVE OR NAPROSYN 5 DAYS PRIOR TO SURGERY. DO NOT take aspirin or aspirin containing products for 5 days before surgery, or longer if instructed by your surgeon. IF YOU HAVE SPECIFIC QUESTIONS, PLEASE CALL YOUR SURGEON Normal [facility] BASIC METABOLIC PANELon 03-2 Anion gap [Moles/Vol] 8 mmol/L Normal 3-13 [facility] Comment on above: Performed By: #### L AB15 ####[employer] Operator: JULIO KNIGHT ([id number])[facility] ([facility])[address] [place] [address] Calcium [Mass/Vol] 9.7 mg/dL Normal 8.8-10.0 [facility] Comment on above: Performed By: #### L AB15 ####[employer] Operator: JULIO KNIGHT ([id number])[facility] ([facility])[address] [place] [address] Chloride [Moles/Vol] 107 mmol/L Normal 98-107 [facility] Comment on above: Performed By: #### L AB15 ####[employer] Operator: JULIO KNIGHT ([phone])[facility] ([facility])[address] [place] [address] CO2 [Moles/Vol] 23 mmol/L Normal 23-31 [facility] Comment on above: Performed By: #### L AB15 ####[employer] Operator: JULIO KNIGHT ([id number])[facility] ([facility])[address] [place] [address] Creatinine [Mass/Vol] 0.70 mg/dL Normal 0.57-1.11 [facility] Comment on above: Performed By: #### L AB15 ####[employer] Operator: JULIO KNIGHT ([id number])[facility] ([facility])[address] [place] [address] [place] GLOMERULAR FILTRATION RATE ML/MIN/1.73 SQ M.PREDICTED 89.2 mL/min/1.73m*2 Normal >60.0 [facility] Comment on above: Result Comment: Calc ulation based on the Chronic Kidney Disease Epidemiology Collaboration (CKD-EPI) equation refit without adjustment for race Performed By: #### L AB15 ####[employer] Operator: JULIO KNIGHT ([id number])[facility] ([facility])[address] [place] [address] Glucose [Mass/Vol] 83 mg/dL Normal 82-115 [facility] Comment on above: Performed By: #### L AB15 ####[employer] Operator: JULIO KNIGHT ([id number])[facility] ([facility])[address] [place] [address] Potassium [Moles/Vol] 4.1 mmol/L Normal 3.5-5.1 [facility] Comment on above: Result Comment: [facility] potassium values may be up to 0.5 mmol/L lower than serum values. Performed By: #### L AB15 ####[employer] Operator: JULIO KNIGHT ([id number])[facility] ([facility])[address] [place] [address] Sodium [Moles/Vol] 138 mmol/L Normal 136-145 [facility] Comment on above: Performed By: #### L AB15 ####[employer] Operator: JULIO KNIGHT ([id number])[facility] ([facility])[address] [place] [address] Urea nitrogen [Mass/Vol] 15 mg/dL Normal 9-23 [facility] Comment on above: Performed By: #### L AB15 ####[employer] Operator: JULIO KNIGHT ([id number])[facility])[address] [place] [address] CBC (HEMOGRAM)on 02-15-2025 Erythrocyte distribution width (RBC) [Ratio] 14.3 % Normal 11.5-15.0 [facility] Comment on above: Performed By: #### L [id number] ####[employer] Operator: JULIO KNIGHT ([id number])[facility])[address] [place] [address] Hematocrit (Bld) [Volume fraction] 37.5 % Normal 35.0-47.0 [facility] Comment on above: Performed By: #### L [id number] ####[employer] Operator: JULIO KNIGHT ([id number])[facility])[address] [place] [address] Hemoglobin (Bld) [Mass/Vol] 12.7 g/dL Normal 11.7-16.0 [facility] Comment on above: Performed By: #### L [id number] ####[employer] Operator: JULIO KNIGHT ([id number])[facility])[address] [place] [address] MCH (RBC) [Entitic mass] 33.1 pg Normal 26.0-34.0 [facility] Comment on above: Performed By: #### L [id number] ####[employer] Operator: JULIO KNIGHT ([id number])[facility])[address] [place] [address] MCHC 33.9 % Normal 30.5-36.0 [facility] Comment on above: Performed By: #### L [id number] ####[employer] Operator: JULIO KNIGHT ([id number])[facility] ([facility])[address] [place] [address] MCV (RBC) [Entitic vol] 97.7 fL Normal 77.0-99.0 [facility] Comment on above: Performed By: #### L [id number] ####[employer] Operator: JULIO KNIGHT ([id number])[facility])[address] [place] [address] Platelet mean volume (Bld) [Entitic vol] 9.4 fL Normal 9.0-12.7 [facility] Comment on above: Performed By: #### L [id number] ####[employer] Operator: JULIO KNIGHT ([id number])[facility] ([facility])[address] [place] [address] [place] Platelets (Bld) [#/Vol] 284 10*3/uL Normal 140-440 [facility] Comment on above: Performed By: #### L [id number] ####[employer] Operator: JULIO KNIGHT ([id number])[facility])[address] [place] [address] RBC (Bld) [#/Vol] 3.84 10*6/uL Normal 3.80-5.20 [facility] Comment on above: Performed By: #### L [id number] ####[employer] Operator: JULIO KNIGHT ([id number])[facility])[address] [place] [address] WBC (Bld) [#/Vol] 5.6 10*3/uL Normal 3.6-10.7 [facility] Comment on above: Performed By: #### L [id number] ####[employer] Operator: JULIO KNIGHT ([id number])[facility] ([facility])[address] [place] [address] Progress Noteon 02-15-2025 Progress Note [facility] [employer] [employer] Surinder Rasheed : 1950 Primary Care Physician: Stacey Newberry, DO The patient and/or family/surrogate voluntarily agreed to participate in ACP services. Patient?s cognitive capacity: The patient is alert and oriented to person, place, time, and situation. Patient has decision making capacity. Code Status: [x] [FULL CODE - Continue all advanced life support: CPR,intubation,invasi ve procedures] [_] [DNR-CCA - DO NOT do CPR, intubation] [_] [DNR-TREATMENT SUPERVISOR - Comfort care only] [_] DNR form [was/was not] signed Summary of discussion: The patient health care POA/ surrogate is the following: Colton Rasheed, son. [Condition that instigated the ACP on this DOS, relevant PMH, functional status, goals of care, and whom this was discussed with including names and relationship to the patient, and any relevant advance care documentation discussion] I answered all the patient/family questions that I could within the range and scope of the current medical situation. We discussed the medical conditions, risks, benefits, outcomes, and goals of care at this time for the patient's medical issues at hand in the face of the patient's chronic issues and current presentation. Total time spent: 3 minutes were spent discussing the patient's resuscitation status, advance care planning, and end of life care, with patient and/or family/surrogate. Sana Crowder APRN - TOW DRIVER [employer] 02/15/2025, 11:22 AM Normal [facility] URINE CULTUREon 02-15-2025 Bacteria identified Cx Nom (U) URINE CULTURE (A) Reference ESCHERICHIA COLI >100,000 CFU/mL Escherichia coli (A) Organism: ESCHERICHIA COLI Antibiotic MEGGAN Interpretation Status Amoxicillin / Clavulanate <=2 ug/ml S F Ampicillin 4 ug/ml S F Ampicillin / Sulbactam <=2 ug/ml S F Aztreonam <=1 ug/ml S F Cefazolin 4 ug/ml I F Cefepime <=0.12 ug/ml S F Ceftriaxone <=0.25 ug/ml S F Ciprofloxacin <=0.06 ug/ml S F Ertapenem <=0.12 ug/ml S F Gentamicin <=1 ug/ml S F Levofloxacin <=0.12 ug/ml S F Meropenem <=0.25 ug/ml S F Nitrofurantoin <=16 ug/ml S F Piperacillin / Tazobactam <=4 ug/ml S F Trimethoprim / Sulfamethoxazole <=20 ug/ml S F [ S = SUSCEPTIBLE R = RESISTANT I = INTERMEDIATE S-DD = Susceptible-dose dependent NS = Non-susceptible NO = No Interpretation ] [facility] Comment on above: Performed By: #### L [id number] ####[employer] Operator: JULIO KNIGHT ([id number])[address] 36on 02-13-2025 36 Spoke to pts son about upcoming PAT 02/15/2025 and surgery 02/19/2025 at [facility] Doctor: Rachel HENDRICKS (arrive 15 min early): 02/15/2025 9:30 AM PAT instructions: Please bring photo ID, insurance card, list of all current medications Surgery: 02/19/2025 1:30 AM Surgery arrival time: 11:30 AM Surgery instructions: Nothing to eat after midnight. Can have clear liquids black coffee (no cream or dairy), tea, water, Sprite, apple juice, Gatorade (no reds or purples) up until arrival time. Medication instructions: Hold Aspirin, fish oil and over the counter vitamins 3 days prior to surgery [facility] 36 Lvm to discuss upcoming PAT and surgery instructions Normal [facility] 37on 02-07-2025 37 [facility] [address] [place] [address] Ph. Kidney Stone Diet Instructions What is a kidney stone? A kidney stone is a hard mass that forms from crystals in the urine. These crystals form when substances in the urine (such as calcium, oxalates, and phosphorus) become highly concentrated in the urine. Approximately 1 in every 1,000 adults are hospitalized each year for kidney stones. Kidney stones may remain in the kidney, or they can move down the ureter into the bladder. When kidney stones move, they cause pain in the back and side which may radiate to the lower abdomen. If these stones are small (less than 5 mm), they may pass on their own. If they are larger, they may require surgery to remove them. Are all kidney stones the same? No. There are 4 main types of kidney stones. Calcium Stones are the most common type of kidney stones. They are formed from high calcium and high oxalate excretion, and when the pH for the urine if high (alkaline). Oxalates are found naturally in many foods, including fruits and vegetables, nuts and seeds, grains, legumes, chocolate and tea. Calcium in the digestive tract binds to oxalates from foods and keep it from entering the blood. This extra calcium is then excreted by the kidneys into the urine, where it can form stones. Uric Acid Stones form when the urine is acidic. A diet rich in animal protein (such as meats, fish and shellfish) may increase uric acid in the urine. Struvite Stones can result from recurrent kidney infections. Cysteine Stones result from a genetic disorder that causes cysteine to leak through the kidneys and into the urine, which then form crystals. Who is at risk for developing kidney stones? History of intestinal surgery or difficulty digesting fat, as seen after bariatric surgery. Intestinal malabsorption syndromes, ?leaky gut? Recent or heavy antibiotic use Hyperparathyroidism Diet high in oxalate containing foods Dehydration, prolonged constipation or diarrhea Pancreatic insufficiency Congenital malformations of the urinary tract What can I do to prevent kidney stones? Staying well hydrated by drinking enough water is one of the best measures you can take to avoid kidney stones. It is very important that you drink at least 3 quarts (12 cups) of fluid throughout the day. Get the Calcium you need: too little calcium in your diet can cause oxalate levels to rise. To prevent this, make sure that you are getting the amount of calcium that is appropriate for your age. Reduce Sodium intake. Sodium increases the amount of calcium in your urine. Current guidelines suggest limiting your sodium intake to 2200 mg daily. Limit animal protein. Eating too much protein (such as with a low-carbohydrate diet), boosts uric acid levels and could lead to kidney stones. Is there a special diet I can follow to help prevent me from having more kidney stones? You may be asked to make changes in the amount of salt (sodium), calcium, oxalate, protein, citrate, potassium and fluid in your diet. You may need to see a registered nurse nursery to help make some of these changes. Extra sodium results in an increase in calcium excretion in your urine, putting you at risk for developing a stone. If you have high calcium in your urine then it may be helpful to reduce your sodium intake. Reducing dietary oxalates can help reduce the formation of stones, especially if other treatments do not help. Low Oxalate Diet Foods Low in Oxalate (eat as desired) Foods moderately high in Oxalates (Eat in moderation) Foods High in Oxalates (limit servings of these foods) Apple Juice Avocado Lovelace Bananas Beef (lean) Elizabeth Cherries Brussel Sprouts Cabbage Cauliflower Cheese Eggs Grapefruit Green Grapes Jellies Herring Lemonade or Limeade Melons Milk Mushrooms Pork Poultry Preserves Nectarines Noodles Oatmeal Oils Onions Peas (fresh) Plums Radishes Rice Salad Dressing Seafood Spaghetti White Bread Wine Yogurt Apple Apricots Asparagus Bottled Veer Broccoli Carrots Chicken Noodle Soup (dried) Coffee Cola beverages [place]/ cornbread Chardon Lettuce Buitrago Beans Marmalade Oranges Chesapeake Parsnips Peaches Pears Peas Pepper Pineapple Plums Prunes Sardines Soy Products Sponge Cake Tomatoes Tomato juice Turnip Watercress Beans Beer Beets Blackberries Black and Red Raspberries Blueberries Celery Chard Chocolate Nisula Coffee Powder Collards Sweeny Grapes Crackers made from Soy Flour Currants Dandelion Greens Eggplant Escarole Fruit Cake Fruit Salad (canned) Green Chan Pepper Grits Juices containing berries Kale Leeks Lemon and [place] Peel Nuts (peanuts and pecans) Okra Ovaltine Parsley Pokeweed Rhubarb Rutabagas Spinach Strawberri (more content not included)... Normal [facility] Office Visiton 02-07-2025 Follow-up visit [id number] Surinder Rasheed 1950 F Date Provider Department Center 02/07/2025 [id number] WAYNE [facility] URO None No family history on file Level of Service:95538 [place] OFFICE/OUTPATIENT ESTABLISHED MOD MDM 30 MIN Reason for Visit and Comments: Follow-up [482610] - Follow up - pt denies issues, pain, distress or discomfort currently Normal [facility] Progress Noteon 02-07-2025 Progress Note Kiara Wayne, CHATO, PA-C Urology Office Visit Patient: Surinder Rasheed Age/Sex: 75 y.o., female Referred by: Dr. Ospina ref. provider found PCP: Stacey Newberry DO Today's Date: 02/07/2025 Visit type: Established patient Chief Complaint: Chief Complaint Patient presents with Follow-up Follow up - pt denies issues, pain, distress or discomfort currently HPI: Surinder is a 75 y.o. 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 The patient had surgery with Dr. Ramos on 01/06/2024 for her kidney stones. The patient had a CT abdomen pelvis without IV contrast on 01/29/2025 resulting in bilateral renal calculi, larger in size and number on the right. Multiple right kidney stones largest measuring about 1.1cm in mid to lower pole. No hydroureteronephrosis . The patient denies dysuria, gross hematuria, flank pain, pelvic pain, fever or chills. Patient denies urinary urgency and frequency. The patient's son stated while she is living at her facility it is hard to focus on a kidney stone diet. Review of Systems: A comprehensive 10+ review of systems was negative except for: see HPI Past Medical History & Surgical History: Past Medical History: Diagnosis Date Arthritis GERD (gastroesophageal reflux disease) Hyperlipidemia Hypertension Kidney stone Mitral valve disorder prolapse Thyroid disease hypothyroidism Past Surgical History: Procedure Laterality Date BLADDER SURGERY prolapse COLONOSCOPY CYSTOSCOPY N/A 01/06/2024 CYSTOSCOPY AND PYELOGRAM, RIGHT URETEROSCOPY HOLMIUM LASER LITHOTRIPSY, RIGHT URETERAL STENT CHANGE EYE SURGERY Bilateral cataract HYSTERECTOMY OTHER SURGICAL HISTORY Right 03/12/2022 Percutaneous nephrolithotomy with JJ stent placemet OTHER SURGICAL HISTORY Right 03/12/2022 Neph Tube Placement PERCUTANEOUS NEPHROLITHOTRIPSY Left 09/24/2022 TOTAL KNEE ARTHROPLASTY Right 11/2022 NEPHROURETREAL CATHETER PLACEMENT NEW ACCESS (HISTORICAL) Left 09/24/2022 Allergies: Allergies Allergen Reactions Cyclobenzaprine Other reaction(s): Other (See Comments) Other reaction(s): Irregular heart beat, Irregular Heartbeat Prednisone Itching and Rash Promethazine Other reaction(s): Other (See Comments) Other reaction(s): Irregular heart beat, Irregular Heart Rate Statins Other reaction(s): myalgias Hydrocodone Other reaction(s): Other (See Comments) Pt does not recall reaction Lisinopril Other reaction(s): Other (See Comments) Pt does not recall Sulfa Antibiotics Other reaction(s): Dizziness or Vertigo Medications: BP 130/68 Pulse 72 Ht 5' 4" (1.626 m) Wt 140 lb (63.5 kg) BMI 24.03 kg/m? Current Outpatient Medications: acetaminophen (Tylenol) 325 MG tablet, Take by mouth every 6 hours as needed., Disp: , Rfl: amLODIPine (Norvasc) 5 MG tablet, Take 5 mg by mouth daily., Disp: , Rfl: ascorbic acid (Vitamin C) 500 mg chewable tablet, Chew 500 mg., Disp: , Rfl: levothyroxine (Synthroid, Levoxyl) 112 MCG tablet, Take 100 mcg by mouth every morning (before breakfast)., Disp: , Rfl: LORazepam (Ativan) 0.5 MG tablet, Take 0.5 mg by mouth in the morning and 0.5 mg before bedtime., Disp: , Rfl: losartan (Cozaar) 25 MG tablet, Take 50 mg by mouth daily., Disp: , Rfl: pantoprazole (ProtoNix) 40 MG EC tablet, Take 40 mg by mouth Daily as needed., Disp: , Rfl: Family History: No family history on file. Social History: She reports that she has never smoked. She has never used smokeless tobacco. She reports that she does not drink alcohol and does not use drugs. Physical Exam: General: Well developed, well nourished, alert and cooperative, appears in no acute distress Head: Normocephalic, atraumatic Neck: supple, trachea midline Eyes: Non-injected conjunctiva, sclera clear, no proptosis Cardiac: Extremities are warm and well perfused. No edema, cyanosis or pallor. Lungs: Breathing is easy, non-labored. Speaking in clear and complete sentences. Normal diaphragmatic movement. Abdomen: soft, non-distended, non-tender, no rebound or guarding, no hernia and no CVA tenderness MSK: Ambulatory with steady gait, unassisted Neuro: alert and oriented to person, place and time Psych: Demonstrates good judgement and reason, without hallucinations, abnormal affect or abnormal behaviors. Skin: no obvious lesions, no rashes Pertinent Labs: CBC: Lab Results Component Value Date WBC 4.5 12/02/2023 HGB 11.6 (L) 12/02/2023 HCT 33.6 (L) 12/02/2023 MCV 99.4 (H) 12/02/2023 PLT 262 12/02/2023 CMP: Lab Results Component Value Date NA 140 12/02/2023 K 3.5 12/02/2023 CL 107 12/02/2023 CO2 28 12/02/2023 BUN 14 12/02/2023 CREATININE 0.76 12/02/2023 GLUCOSE 91 12/02/2023 Hemoglobin A1C: No results found for: HGBA1C Urinalysis: Lab Results Component Value Date COLORU Light-Yellow 09/17/2022 GLUCOSEUR (more content not included)... [facility] Progress Note Please call the patient and let her know The urine culture results were positive for a urinary tract infection. Antibiotic therapy has been prescribed and sent to the pharmacy with appropriate instructions. Thank you. [facility] 36on 02-05-2025 36 Spoke with patient's sonmolly Blackwell and given Chad's message verbatim. Colton verbalized understanding and have no further questions or concerns at this time. Patient will see Kiara on 02/07/2025 . [facility] 36 Attempted to contact patient to give Chad's message verbatim. LVM for patient to call the office. Normal [facility] 36 ----- Message from Chad HodgesALONDRA CNP sent at 02/04/2025 5:08 PM EDT ----- Please let patient know her CT scan shows she does have some stones in her kidneys, but they are not causing any blockages at this time. Please also remind patient of her upcoming appointment with Kiara Wayne PA-C on 02-07-25. Thank you Normal [facility] TSH DL <= 0.005 mIU/L QnOrde red By: Nay Greenwood on 02-04-2025 Thyroid Stimulating Hormone (TSH) 3.160 uIU/mL 0.300-4.200 [facility] Thyroid Stim Hormone (TSH)on 02-04-2025 TSH 3.160 uIU/mL Normal 0.300-4.200 [facility] Comment on above: Order Comment: 136 Performed By: #### L [id number], L500.4050, L100.0100, L501.5200 #### [facility] [address] [place], [address] CT ABDOMEN PELVIS WO IV CONT [facility] 01-30-2025 CT ABDOMEN PELVIS WO IV CONTRAST Patient Name: SURINDER RASHEED : 1950 Exam Date/Time: 01/29/2025 16:07 Procedure: CT ABDOMEN PELVIS WO IV CONTRAST Ordering Provider: RAMOS JOSHUA Reason For Exam: kidney stones , hydronephrosis EXAM: CT Abdomen and Pelvis Without Intravenous Contrast CLINICAL INDICATION: kidney stones , hydronephrosis TECHNIQUE: Axial computed tomography images of the abdomen and pelvis without intravenous contrast. This CT exam was performed using one or more of the following dose reduction techniques: automated exposure control, adjustment of the mA and/or kV according to patient size, and/or use of iterative reconstruction technique. COMPARISON: No relevant prior studies available. FINDINGS: LUNG BASES: Subsegmental left basilar atelectasis. ABDOMEN: LIVER: Unremarkable. GALLBLADDER AND BILE DUCTS: Gallstone. Gallbladder otherwise unremarkable. No ductal dilation. PANCREAS: Mildly dilated pancreatic duct measuring 3 cm in width. SPLEEN: Unremarkable. No splenomegaly. ADRENALS: Unremarkable. No mass. KIDNEYS AND URETERS: Multiple right renal calculi measuring up to 14 mm. There are a few punctate left renal calculi. No hydroureteronephrosis . Bilateral renal cysts. These do not require follow-up imaging. STOMACH AND BOWEL: Diverticuli are noted throughout the sigmoid colon. No stenotic lesion, mucosal thickening or adjacent fat stranding is noted to suggest diverticulitis. Moderate stool throughout the colon. No obstruction. PELVIS: APPENDIX: No findings to suggest acute appendicitis. BLADDER: Unremarkable. No stones. REPRODUCTIVE: Status post hysterectomy. ABDOMEN and PELVIS: INTRAPERITONEAL SPACE: Unremarkable. No free air. No significant fluid collection. BONES/JOINTS: Degenerative changes are present in the visualized spine. No acute fracture. VASCULATURE: Atherosclerotic disease. No abdominal aortic aneurysm. LYMPH NODES: Unremarkable. No enlarged lymph nodes. IMPRESSION: 1. Bilateral renal calculi, larger in size and number on the right. No hydroureteronephrosis . 2. Cholecystolithiasis. 3. Colonic diverticulosis. 4. Moderate stool throughout the colon. Consider constipation. 5. Mildly dilated pancreatic duct due to chronic pancreatitis. Report Dictated on Electronically Signed By: Vijay Coles MD Electronically Signed Date/Time: 01/30/2025 8:19 AM EST Eval Rt stone, no pain no current complaints, pt poor historian Normal [facility] CT Abdomen and Pelvis WO con traston 01-30-2025 1. Bilateral renal calculi, larger in size and number on the right. No hydroureteronephrosis . 2. Cholecystolithiasis. 3. Colonic diverticulosis. 4. Moderate stool throughout the colon. Consider constipation. 5. Mildly dilated pancreatic duct due to chronic pancreatitis. Report Dictated on Electronically Signed By: Vijay Coles MD Electronically Signed Date/Time: 01/30/2025 8:19 AM [employer] [facility] Patient Name: SURINDER RASHEED : 1950 Exam Date/Time: 01/29/2025 16:07 Procedure: CT ABDOMEN PELVIS WO IV CONTRAST Ordering Provider: RAMOS JOSHUA Reason For Exam: kidney stones , hydronephrosis EXAM: CT Abdomen and Pelvis Without Intravenous Contrast CLINICAL INDICATION: kidney stones , hydronephrosis TECHNIQUE: Axial computed tomography images of the abdomen and pelvis without intravenous contrast. This CT exam was performed using one or more of the following dose reduction techniques: automated exposure control, adjustment of the mA and/or kV according to patient size, and/or use of iterative reconstruction technique. COMPARISON: No relevant prior studies available. FINDINGS: LUNG BASES: Subsegmental left basilar atelectasis. ABDOMEN: LIVER: Unremarkable. GALLBLADDER AND BILE DUCTS: Gallstone. Gallbladder otherwise unremarkable. No ductal dilation. PANCREAS: Mildly dilated pancreatic duct measuring 3 cm in width. SPLEEN: Unremarkable. No splenomegaly. ADRENALS: Unremarkable. No mass. KIDNEYS AND URETERS: Multiple right renal calculi measuring up to 14 mm. There are a few punctate left renal calculi. No hydroureteronephrosis . Bilateral renal cysts. These do not require follow-up imaging. STOMACH AND BOWEL: Diverticuli are noted throughout the sigmoid colon. No stenotic lesion, mucosal thickening or adjacent fat stranding is noted to suggest diverticulitis. Moderate stool throughout the colon. No obstruction. PELVIS: APPENDIX: No findings to suggest acute appendicitis. BLADDER: Unremarkable. No stones. REPRODUCTIVE: Status post hysterectomy. ABDOMEN and PELVIS: INTRAPERITONEAL SPACE: Unremarkable. No free air. No significant fluid collection. BONES/JOINTS: Degenerative changes are present in the visualized spine. No acute fracture. VASCULATURE: Atherosclerotic disease. No abdominal aortic aneurysm. LYMPH NODES: Unremarkable. No enlarged lymph nodes. [facility] Vijay Coles MD - 01/30/2025 Patient Name: SURINDER RASHEED : 1950 Exam Date/Time: 01/29/2025 16:07 Procedure: CT ABDOMEN PELVIS WO IV CONTRAST Ordering Provider: RAMOS JOSHUA Reason For Exam: kidney stones , hydronephrosis EXAM: CT Abdomen and Pelvis Without Intravenous Contrast CLINICAL INDICATION: kidney stones , hydronephrosis TECHNIQUE: Axial computed tomography images of the abdomen and pelvis without intravenous contrast. This CT exam was performed using one or more of the following dose reduction techniques: automated exposure control, adjustment of the mA and/or kV according to patient size, and/or use of iterative reconstruction technique. COMPARISON: No relevant prior studies available. FINDINGS: LUNG BASES: Subsegmental left basilar atelectasis. ABDOMEN: LIVER: Unremarkable. GALLBLADDER AND BILE DUCTS: Gallstone. Gallbladder otherwise unremarkable. No ductal dilation. PANCREAS: Mildly dilated pancreatic duct measuring 3 cm in width. SPLEEN: Unremarkable. No splenomegaly. ADRENALS: Unremarkable. No mass. KIDNEYS AND URETERS: Multiple right renal calculi measuring up to 14 mm. There are a few punctate left renal calculi. No hydroureteronephrosis . Bilateral renal cysts. These do not require follow-up imaging. STOMACH AND BOWEL: Diverticuli are noted throughout the sigmoid colon. No stenotic lesion, mucosal thickening or adjacent fat stranding is noted to suggest diverticulitis. Moderate stool throughout the colon. No obstruction. PELVIS: APPENDIX: No findings to suggest acute appendicitis. BLADDER: Unremarkable. No stones. REPRODUCTIVE: Status post hysterectomy. ABDOMEN and PELVIS: INTRAPERITONEAL SPACE: Unremarkable. No free air. No significant fluid collection. BONES/JOINTS: Degenerative changes are present in the visualized spine. No acute fracture. VASCULATURE: Atherosclerotic disease. No abdominal aortic aneurysm. LYMPH NODES: Unremarkable. No enlarged lymph nodes. IMPRESSION: 1. Bilateral renal calculi, larger in size and number on the right. No hydroureteronephrosis . 2. Cholecystolithiasis. 3. Colonic diverticulosis. 4. Moderate stool throughout the colon. Consider constipation. 5. Mildly dilated pancreatic duct due to chronic pancreatitis. Report Dictated on Electronically Signed By: Vijay Coles MD Electronically Signed Date/Time: 01/30/2025 8:[address] [address] Abdomen and Pelvis WO con trastOrdered By: Vijay Coles on 01-30-2025 [facility] [employer] Work Phone: CT Abdomen and Pelvis WO con traston 01-29-2025 Radiology Study observation (narrative) [facility] Markus alth 36on 01-18-2025 36 Your patient has bee n scheduled for their CT on 01/29/2025 at 4:15pm. If testing requires an insurance authorization, the authorization must be in place 48 hours prior to the scheduled test or testing will be cancelled. Thank you, Central Scheduling [phone] Normal [facility] Brain/Head without Contrasto n 12-28-2024 Brain/Head without Contrast [facility] Imaging Services [address] [place] [address] Brain/Head without Contrast MR#: [id number] Acct: [id number] Name: SURINDER RASHEED Rep #: [id number] : 1950 F 74 From: Ayden Wright MD PCP: Nay Greenwood MD Status: REG ER Study: Brain/Head without Contrast Date of Exam: 11/30 12/22 Exam# [id number] Ordering Dr: Yunior Zaldivar GREASE PACKER-C PROCEDURE: BRAIN/HEAD WITHOUT CONTRAST; SPINE CERVICAL WITHOUT CONTRAS REASON FOR EXAM: Trauma TECHNIQUE: Axial with coronal and sagittal reformats of the brain and cervical spine COMPARISON: None. FINDINGS: Alignment: Normal Vertebrae: No acute fracture Prominent multilevel degenerative changes of the cervical spine. Soft Tissues: No large prevertebral hematoma No acute intracranial hemorrhage. Dura is maintained. Ventricles are preserved. No midline shift. Globes are normal. CT/Brain/Head without Contrast IMPRESSION: No acute CT process in the brain or cervical spine. One or more dose reduction techniques were used (e.g., Automated exposure control, adjustment of the mA and/or kV according to patient size, use of iterative reconstruction technique). Reading Location: [facility] CC: JEANNETTE Zaldivar; Nay Greenwood MD Inker Machine: Signed Normal [facility] Emergency Department Summary on 12-28-2024 Emergency Department Summary [facility] Medical Records Department [address] [place] [address] Emergency Department Summary 12/28/24 MR#: [id number] Acct: [id number] Name: SURINDER RASHEED Rep #: [id number] : 1950 74 From: Yunior MACHADO PCP: Nay Greenwood MD Status:DEP ER Location: ED HPI History of Present Illness Chief Complaint: Fall Narrative Narrative: Patient is a 74-year-old female with history of dementia, hyperlipidemia, anxiety, hypertension who presents to the [facility] for evaluation after sustaining a head injury. Last evening, the patient slipped out of bed, hitting the back of her head. A staff member was able to get her back into bed. Today, she has a hematoma, headache, and they want to have her evaluated. Patient denies any nausea, patient states he does have a headache where she struck her head. Denies any other injury. [facility] Medical History (Updated 12/28/24 @ 18:15 by JEANNETTE Albarado) Valvular heart disease Cardiac dysrhythmia Knee osteoarthritis Family history of coronary artery disease Hypothyroidism Mixed hyperlipidemia Essential hypertension Home Medications ???Medication ???Instructions ???Recorded ???Last Taken ???Type lorazepam 0.5 mg tablet 0.5 mg PO BID anxiety 06/10/15 Unk nown History levothyroxine 112 mcg tablet 112 mcg PO DAILY thyroid 12/30/21 Unknown History losartan 25 mg tablet 50 mg PO DAILY BP 12/30/21 Unknown History atenolol 25 mg tablet 25 mg PO DAILY BP 06/10/22 Unknown History amlodipine 5 mg tablet 5 mg PO DAILY BP 12/22/22 Unknown History acetaminophen 500 mg tablet 1,000 mg (2 x 500 mg) PO Q8 #0 tab s 12/23/22 Unknown Rx acidophilus 25 million 1 tab PO BID #0 tabs 12/23/22 Unkn own Rx cell-pectin, citrus 100 mg tablet apixaban 5 mg tablet (Eliquis) 2.5 mg (1/2 x 5 mg) PO BID 9 days 12/23/22 Unknown Rx #9 tabs potassium chloride 20 mEq 20 meq PO DAILYCM 30 days #30 tabs 12/23/22 Unknown Rx tablet,extended release(part/cryst) (Klor-Con M) sennosides 8.6 mg-docusate sodium 2 tab PO BID 30 days #120 tabs Unknown Rx 50 mg tablet (Stool Softener-Stimulant Laxative) Allergy/AdvReac Type Severity Reaction Status Date / Time prednisone Allergy Rash Verified 12/28/24 16:54 cyclobenzaprine (From AdvReac Unknown Irregular Verified 12/28/24 16:54 Flexeril) Heartbeat lisinopril AdvReac Unknown Cough Verified 12/28/24 16:54 hydrocodone bitartrate (From AdvReac Other Verified 12/28/24 16:54 Vicodin) promethazine AdvReac Other Verified 12/28/24 16:54 Bghlflt-BGD-PtB Reductase AdvReac Pain in Verified 12/28/24 16:54 Inhibitor (Nlfjxkh-Bns-Nrm joints Reductase Inhibitor) Family History Father Heart disease Brother Heart disease Surgical History History of total right knee replacement H/O lithotripsy History of hysterectomy Social History (Updated 12/22/22 @ 19:[address] Shant Guevara MD) household members: none Smoking Status: Never smoker alcohol intake: never substance use type: does not use caffeine: Yes ROS ROS ED ROS Narrative Constitutional: Negative for fever, chills, weight loss, weakness Eyes: Negative for vision loss, vision change, double vision ENT: Negative for any sore throat, ear pain, congestion Cardiovascular: Negative for any chest pain, tightness, palpitations Respiratory: Negative for any cough, sputum production, hemoptysis, dyspnea, dyspnea on exertion, orthopnea Gastrointestinal: Negative for any abdominal pain, nausea, vomiting, diarrhea, constipation, blood in stool, blood in vomit : Negative for any urinary frequency, dysuria, retention, blood in urine Muscle skeletal: Negative for any neck pain, back pain Neurological: Negative for any syncope, dizziness. Positive for headache Skin: Negative for any rashes, itching, abrasions, lacerations Psychiatric: Negative for any depression, anxiety, stress, suicidal ideation, homicidal ideation Hematologic: Negative for any excessive bruising, easy bleeding EXAM Physical Exam Narrative Exam Narrative: Vital signs reviewed. HEET: Head normocephalic atraumatic, TMs clear bilaterally. Posterior pharynx is clear, moist mucous membranes. Nares clear bilaterally. Pupils are equal round reactive to light, negative for any hemotympanum or septal hematoma. Patient does have a hematoma to the occiput Neck: Supple with no lymphadenopathy or tenderness. No signs of meningismus. Cardiac: Regular rate and rhythm no murmurs gallops or rubs, equal peripheral pulses bilaterally. Respiratory: Lungs clear to auscultation bilaterally. No chest tenderness. Abdomen: Soft, nontender, nondistended. No abdominal bruit or pulsatile masses. No hepatos (more content not included)... Normal [facility] Spine Cervical without Contr ason 12-28-2024 Spine Cervical without Contras [facility] Imaging Services [address] [place], [place] [address] Spine Cervical without Contras MR#: [id number] Acct: [id number] Name: SURINDER RASHEED Rep #: [id number] : 1950 F 74 From: Ayden Wright MD PCP: Nay Greenwood MD Status: REG ER Study: Spine Cervical without Contras Date of Exam: 0 12/28/24 Exam# [id number] Ordering Dr: Yunior Zaldivar PROCEDURE: BRAIN/HEAD WITHOUT CONTRAST; SPINE CERVICAL WITHOUT CONTRAS REASON FOR EXAM: Trauma TECHNIQUE: Axial with coronal and sagittal reformats of the brain and cervical spine COMPARISON: None. FINDINGS: Alignment: Normal Vertebrae: No acute fracture Prominent multilevel degenerative changes of the cervical spine. Soft Tissues: No large prevertebral hematoma No acute intracranial hemorrhage. Dura is maintained. Ventricles are preserved. No midline shift. Globes are normal. CT/Spine Cervical without Contras IMPRESSION: No acute CT process in the brain or cervical spine. One or more dose reduction techniques were used (e.g., Automated exposure control, adjustment of the mA and/or kV according to patient size, use of iterative reconstruction technique). Reading Location: [facility] CC: JEANNETTE Zaldivar; Nay Greenwood MD Inker Machine: Signed Normal [facility] TSH QnOrdered By: Nay rust on 12-14-2024 Thyroid Stimulating Hormone (TSH) 3.880 uIU/mL High 0.358-3.740 [facility] Thyroid Stim Hormone (TSH)on 12-14-2024 TSH 3.880 uIU/mL High 0.358-3.740 [facility] Comment on above: Order Comment: 136 Performed By: #### L 501.9520 #### [facility] [address] [place], [address] Urine Cultureon 12-13-2024 URC Below infection level. Mixed Gram Pos Gram Neg Org [place] Count <1000 MIXC Mixed contaminants. Submit a new specimen if indicated. Normal [facility] Comment on above: Performed By: #### M 100.2200, L400.0001 #### [facility] [address] [place], [address] Urinalysis, Completeon 12-11 BACTERIA RARE Normal None Seen [facility] Comment on above: Order Comment: CLEAN CATCH Performed By: #### M 100.2200, L400.0001 #### [facility] [address] [place], [address] EPI,SQUAMOUS 0-5 SEEN Normal 5-10 [facility] Comment on above: Order Comment: CLEAN CATCH Performed By: #### M 100.2200, L400.0001 #### [facility] [address] [place], [address] WBC 50-100 SEEN Normal 0-5 [facility] Comment on above: Order Comment: CLEAN CATCH Performed By: #### M 100.2200, L400.0001 #### [facility] [address] [place], [address] Mucus Ql (Urine sed) 0 SEEN Normal [facility] Comment on above: Order Comment: CLEAN CATCH Performed By: #### M 100.2200, [id number] #### [facility] [address] [place], [address] RBC 0 SEEN Normal 0-5 [facility] Comment on above: Order Comment: CLEAN CATCH Performed By: #### M 100.2200, L400.0001 #### [facility] [address] [place], [address] Bacteria LM.HPF (Urine sed) [#/Area]Ordered By: Nay Greenwood on 12-10-2024 Urine Bacteria RARE /hpf None Seen [facility] Bilirubin Test strip Ql (U)O rdered By: Nay Greenwood on 12-10-2024 Bilirubin Ql (U) Negative Negative [facility] Epithelial cells.squamous LM Ql (Urine sed)Ordered By: Nay Greenwood on 12-10-2024 Epithelial cells.squamous LM.HPF (Urine sed) [#/Area] 0 /[HPF] 5-10 [facility] Glucose Ql (U)Ordered By: Manan Greenwood on 12-10-2024 Urine Glucose (UA) Normal mg/dl Normal [facility] Ketones Test strip Ql (U)Ord ered By: Nay Greenwood on 12-10-2024 Ketones Ql (U) Negative Negative [facility] Microscopic analysis of urin e for red blood cells (RBC)Ordered By: Nay Greenwood on 12-10-2024 Urine RBC 0 SEEN /hpf 0-5 [facility] Mucus LM Ql (Urine sed)Order ed By: Nay Greenwood on 12-10-2024 Mucus Ql (Urine sed) 0 SEEN /hpf [facility] Nitrite Test strip Ql (U)Ord ered By: Nay Greenwood on 12-10-2024 Nitrite Ql (U) Negative Negative [facility] Protein Test strip Ql (U)Ord ered By: Nay Greenwood on 12-10-2024 Protein Ql (U) 15 mg/dl High Negative [facility] Urine blood detectionOrdered By: Nay Greenwood on 12-10-2024 Urine Occult Blood 25 /ul High Negative [facility] Urine clarityOrdered By: Rhett Greenwood on 12-10-2024 Clarity (U) Cloudy Clear [facility] Urine color determinationOrd ered By: Nay Greenwood on 12-10-2024 Color (U) Yellow Yellow [facility] Urine cultureOrdered By: Rhett Greenwood on 12-10-2024 Bacteria identified Cx Nom (U) Mixed Gram Pos & Gram Neg Org Abnormal [facility] Urine leukocyte esterase det ection by dipstickOrdered By: Nay Greenwood on 12-10-2024 Leukocyte esterase Test strip Ql (U) 500 /ul High Negative [facility] Urine pHOrdered By: Nay Steiner udla on 12-10-2024 pH (U) 6.5 [pH] 5.0 - 8.0 [facility] Urine specific gravity measu rementOrdered By: Nay Greenwood on 12-10-2024 Specific gravity (U) [Rel density] 1.010 1.002-1.030 [facility] Urobilinogen Ql (U)Ordered B y: Nay Greenwood on 12-10-2024 Urine Urobilinogen Normal mg/dl Normal [facility] White blood cell countOrdere d By: Nay Greenwood on 12-10-2024 Urine WBC 50-100 SEEN /hpf 0-5 [facility] Absolute neutrophil countOrd ered By: Nay Greenwood on 12-03-2024 Neutrophils (Bld) [#/Vol] 2.6 10*3/uL 2.0-7.7 [facility] Albumin to globulin ratioOrd ered By: Nay Greenwood on 12-03-2024 Albumin/Globulin [Mass ratio] 0.8 {ratio} Low 0.9-2.4 [facility] Basophil percentageOrdered B y: Nay Greenwood on 12-03-2024 Basophils/100 WBC (Bld) 0.4 % 0-1 [facility] Bilirubin, totalOrdered By: Nay Greenwood on 12-03-2024 Bilirubin [Mass/Vol] 0.60 mg/dL 0.20-1.00 [facility] Comment on above: For patients on eltr ombopag therapy, use of Dimension [place] TBIL is not recommended. Blood urea nitrogen (BUN)/cr eatinine ratioOrdered By: Nay Greenwood on 12-03-2024 Urea nitrogen/Creatinine [Mass ratio] 18.5 mg/mg 10-20 [facility] CBC W/Diff, Automatedon Absolute Lymph 1.49 X10 3/uL Normal 0.83-4.51 [facility] Comment on above: Order Comment: 136 Performed By: #### L [id number], L500.4050, L100.0100, L501.5200 #### [facility] [address] [place], [address] Absolute Neut 2.6 X10 3/uL Normal 2.0-7.7 [facility] Comment on above: Order Comment: 136 Performed By: #### L [id number], L500.4050, L100.0100, [id number] #### [facility] [address] [place], [address] Basophils/100 WBC (Bld) 0.4 % Normal 0-1 [facility] Comment on above: Order Comment: 136 Performed By: #### L [id number], L500.4050, L100.0100, [id number] #### [facility] [address] [place], [address] Eosinophils/100 WBC (Bld) 1.7 % Normal 0-5 [facility] Comment on above: Order Comment: 136 Performed By: #### L [id number], L500.4050, L100.0100, L501.5200 #### [facility] [address] [place], [address] Erythrocyte distribution width (RBC) [Ratio] 13.0 % Normal 11.6-14.6 [facility] Comment on above: Order Comment: 136 Performed By: #### L [id number], L500.4050, L100.0100, L501.5200 #### [facility] [address] [place], [address] Hematocrit (Bld) [Volume fraction] 37.6 % Normal 37-47 [facility] Comment on above: Order Comment: 136 Performed By: #### L [id number], [id number], L100.0100, [id number] #### [facility] [address] [place], [address] Hemoglobin (Bld) [Mass/Vol] 12.7 g/dL Normal 12.0-15.0 [facility] Comment on above: Order Comment: 136 Performed By: #### L [id number], [id number], L100.0100, L501.5200 #### [facility] [address] [place], [address] IG% 0.400 Normal 0.0-0.9 [facility] Comment on above: Order Comment: 136 Result Comment: IG% - Immature Granulocytes (promyelocytes, myelocytes and metamyelocytes) > 1% indicates that a LEFT SHIFT is Present. Performed By: #### L [id number], L500.4050, L100.0100, L501.5200 #### [facility] [address] [place], [address] Lymphocytes/100 WBC (Bld) 31.5 % Normal 19-41 [facility] Comment on above: Order Comment: 136 Performed By: #### L [id number], [id number], L100.0100, L501.5200 #### [facility] [address] [place], [address] MCH (RBC) [Entitic mass] 32.2 pg High 27.0-32.0 [facility] Comment on above: Order Comment: 136 Performed By: #### L [id number], [id number], L100.0100, L501.5200 #### [facility] [address] [place], [address] MCHC (RBC) [Mass/Vol] 33.8 g/dL Normal 32-36 [facility] Comment on above: Order Comment: 136 Performed By: #### L [id number], [id number], L100.0100, [id number] #### [facility] [address] [place], [address] MCV (RBC) [Entitic vol] 95.4 fL Normal 81-99 [facility] Comment on above: Order Comment: 136 Performed By: #### L [id number], [id number], L100.0100, L501.5200 #### [facility] [address] [place], [address] Monocytes/100 WBC (Bld) 10.6 % High 0-10 [facility] Comment on above: Order Comment: 136 Performed By: #### L [id number], L500.4050, L100.0100, L501.5200 #### [facility] [address] [place], [address] Neutrophils/100 WBC (Bld) 55.4 % Normal 47-70 [facility] Comment on above: Order Comment: 136 Performed By: #### L [id number], [id number], L100.0100, [id number] #### [facility] [address] [place], [address] Nucleated RBC (Bld) [#/Vol] 0 10*3/uL Normal 0-5 [facility] Comment on above: Order Comment: 136 Performed By: #### L [id number], [id number], L100.0100, L501.5200 #### [facility] [address] [place], [address] Platelet mean volume (Bld) [Entitic vol] 9.2 fL Normal 6.2-12.0 [facility] Comment on above: Order Comment: 136 Performed By: #### L [id number], L500.4050, L100.0100, L501.5200 #### [facility] [address] [place], [address] Platelets (Bld) [#/Vol] 279 10*3/uL Normal 150-450 [facility] Comment on above: Order Comment: 136 Performed By: #### L [id number], [id number], L100.0100, L501.5200 #### [facility] [address] [place], [address] RBC (Bld) [#/Vol] 3.94 10*6/uL Low 4.2-5.4 [facility] Comment on above: Order Comment: 136 Performed By: #### L [id number], [id number], L100.0100, [id number] #### [facility] [address] [place], [address] RDW SD 46.1 fl High 35.1-43.9 [facility] Comment on above: Order Comment: 136 Performed By: #### L [id number], [id number], L100.0100, [id number] #### [facility] [address] [place], [address] WBC (Bld) [#/Vol] 4.7 10*3/uL Normal 4.4-11.0 [facility] Comment on above: Order Comment: 136 Performed By: #### L [id number], [id number], L100.0100, L501.5200 #### [facility] [address] [place], [address] Carbon dioxide measurementOr dered By: Nay Greenwood on 12-03-2024 CO2 [Moles/Vol] 23.0 mmol/L 21.0-32.0 [facility] Chloride measurementOrdered By: Nay Greenwood on 12-03-2024 Chloride [Moles/Vol] 109 mmol/L High 98-107 [facility] Comprehensive Metabolic Prof ilon 12-03-2024 Albumin [Mass/Vol] 3.0 g/dL Low 3.2-5.0 [facility] Comment on above: Order Comment: 136 Performed By: #### L [id number], L500.4050, L100.0100, L501.5200 #### [facility] [address] [place], [address] Albumin/Globulin [Mass ratio] 0.8 {ratio} Low 0.9-2.4 [facility] Comment on above: Order Comment: 136 Performed By: #### L [id number], L500.4050, L100.0100, L501.5200 #### [facility] [address] [place], [address] ALK P 73 U/L Normal 45-117 [facility] Comment on above: Order Comment: 136 Performed By: #### L [id number], L500.4050, L100.0100, L501.5200 #### [facility] [address] [place], [address] ALT [Catalytic activity/Vol] 29 U/L Normal 13-56 [facility] Comment on above: Order Comment: 136 Performed By: #### L [id number], L500.4050, L100.0100, L501.5200 #### [facility] [address] [place], [address] AST [Catalytic activity/Vol] 31 U/L Normal 15-37 [facility] Comment on above: Order Comment: 136 Performed By: #### L [id number], L500.4050, L100.0100, L501.5200 #### [facility] [address] [place], [address] Bilirubin [Mass/Vol] 0.60 mg/dL Normal 0.20-1.00 [facility] Comment on above: Order Comment: 136 Result Comment: For patients on eltrombopag therapy, use of Dimension [place] TBIL is not recommended. Performed By: #### L [id number], L500.4050, L100.0100, L501.5200 #### [facility] [address] [place], [address] BUN/CRE 18.5 RATIO Normal 10-20 [facility] Comment on above: Order Comment: 136 Performed By: #### L [id number], L500.4050, L100.0100, L501.5200 #### [facility] [address] [place], [address] CA,Total 9.3 mg/dL Normal 8.5-10.1 [facility] Comment on above: Order Comment: 136 Performed By: #### L [id number], L500.4050, L100.0100, L501.5200 #### [facility] [address] [place], [address] Chloride [Moles/Vol] 109 mmol/L High 98-107 [facility] Comment on above: Order Comment: 136 Performed By: #### L [id number], L500.4050, L100.0100, L501.5200 #### [facility] [address] [place], [address] CO2 [Moles/Vol] 23.0 mmol/L Normal 21.0-32.0 [facility] Comment on above: Order Comment: 136 Performed By: #### L [id number], L500.4050, L100.0100, L501.5200 #### [facility] [address] [place], [address] Creatinine [Mass/Vol] 0.76 mg/dL Normal 0.55-1.02 [facility] Comment on above: Order Comment: 136 Result Comment: The validity of the calculated GFR GFRAA in patients over 70 years has not been determined. Clinical correlation is essential. Performed By: #### L [id number], L500.4050, L100.0100, L501.5200 #### [facility] [address] [place], [address] EST GFR - AA 95 mL/min Normal >60 [facility] Comment on above: Order Comment: 136 Result Comment: Afri can Tristanian GFR Calc Performed By: #### L [id number], L500.4050, L100.0100, L501.5200 #### [facility] [address] [place], [address] GAP 5 Normal 5-15 [facility] Comment on above: Order Comment: 136 Performed By: #### L [id number], L500.4050, L100.0100, L501.5200 #### [facility] [address] [place], [address] GFR/1.73 sq M.predicted among non-blacks MDRD (S/P/Bld) [Vol rate/Area] 79 mL/min/{1.73_m2} Normal >60 [facility] Comment on above: Order Comment: 136 Result Comment: Non- GFR Calc Performed By: #### L [id number], L500.4050, L100.0100, L501.5200 #### [facility] [address] [place], [address] Globulin (S) [Mass/Vol] 3.9 g/dL Normal 2.2-4.2 [facility] Comment on above: Order Comment: 136 Performed By: #### L [id number], L500.4050, L100.0100, L501.5200 #### [facility] [address] [place], [address] Glucose [Mass/Vol] 99 mg/dL Normal 74-106 [facility] Comment on above: Order Comment: 136 Performed By: #### L [id number], L500.4050, L100.0100, L501.5200 #### [facility] [address] [place], [address] Potassium [Moles/Vol] 4.0 mmol/L Normal 3.5-5.1 [facility] Comment on above: Order Comment: 136 Performed By: #### L [id number], L500.4050, L100.0100, L501.5200 #### [facility] [address] [place], [address] Sodium [Moles/Vol] 137 mmol/L Normal 136-145 [facility] Comment on above: Order Comment: 136 Performed By: #### L [id number], L500.4050, L100.0100, L501.5200 #### [facility] [address] [place], [address] T PROT 6.9 g/dL Normal 6.4-8.2 [facility] Comment on above: Order Comment: 136 Performed By: #### L [id number], L500.4050, L100.0100, L501.5200 #### [facility] [address] [place], [address] Urea nitrogen [Mass/Vol] 14 mg/dL Normal 7-18 [facility] Comment on above: Order Comment: 136 Performed By: #### L [id number], L500.4050, L100.0100, L501.5200 #### [facility] [address] [place], [address] Eosinophil percentageOrdered By: Nay Greenwood on 12-03-2024 Eosinophils/100 WBC (Bld) 1.7 % 0-5 [facility] Erythrocyte distribution wid th (RBC) [Ratio]Ordered By: Nay Greenwood on 12-03-2024 Erythrocyte distribution width (RBC) [Entitic vol] 46.1 fL High 35.1-43.9 [facility] Erythrocyte distribution wid th ratioOrdered By: Nay Greenwood on 12-03-2024 Erythrocyte distribution width (RBC) [Ratio] 13.0 % 11.6-14.6 [facility] Estimated glomerular filtrat ion rate (GFR) AmericanOrdered By: Nay Greenwood on 12-03-2024 Estimated GFR (MDRD) Amer 95 mL/min >60 [facility] Comment on above: GFR Calc Glomerular filtration rate ( GFR) estimationOrdered By: Nay Greenwood on 12-03-2024 Estimated GFR (MDRD) Non-Af Amer 79 mL/min >60 [facility] Comment on above: Non- GFR Calc Glucose measurementOrdered B y: Nay Greenwood on 12-03-2024 Glucose [Mass/Vol] 99 mg/dL 74-106 [facility] Hematocrit Auto (Bld) [Volum e fraction]Ordered By: Nay Greenwood on 12-03-2024 Hematocrit (Bld) [Volume fraction] 37.6 % 37-47 [facility] Hemoglobin measurementOrdere d By: Nay Greenwood on 12-03-2024 Hemoglobin (Bld) [Mass/Vol] 12.7 g/dL 12.0-15.0 [facility] Immature granulocytes/100 WB C Auto (Bld)Ordered By: Nay Greenwood on 12-03-2024 Immature granulocytes/100 WBC (Bld) 0.400 % 0.0-0.9 [facility] Comment on above: IG% - Immature Granu locytes (promyelocytes, myelocytes and metamyelocytes) > 1% indicates that a LEFT SHIFT is Present. Laboratory - Chemistry and C hemistry - challengeOrdered By: Nay Greenwood on 12-03-2024 AST [Catalytic activity/Vol] 31 U/L 15-37 [facility] Lymphocytes Auto (Unsp spec) [#/Vol]Ordered By: Nay Greenwood on 12-03-2024 Lymphocytes (Bld) [#/Vol] 1.49 10*3/uL 0.83-4.51 [facility] Lymphocytes/100 WBC Auto (Un sp spec)Ordered By: Nay Greenwood on 12-03-2024 Lymphocytes/100 WBC (Bld) 31.5 % 19-41 [facility] MCV (mean corpuscular volume ) determinationOrdered By: Nay Greenwood on 12-03-2024 MCV (RBC) [Entitic vol] 95.4 fL 81-99 [facility] Mean corpuscular hemoglobin (MCH) determinationOrdered By: Nay Greenwood on 12-03-2024 MCH (RBC) [Entitic mass] 32.2 pg High 27.0-32.0 [facility] Mean corpuscular hemoglobin concentration (MCHC) determinationOrdered By: Nay Greenwood on 12-03-2024 MCHC (RBC) [Mass/Vol] 33.8 g/dL 32-36 [facility] Mean platelet volume determi nationOrdered By: Nay Greenwood on 12-03-2024 Platelet mean volume (Bld) [Entitic vol] 9.2 fL 6.2-12.0 [facility] Monocyte percentageOrdered B y: Nay Greenwood on 12-03-2024 Monocytes/100 WBC (Bld) 10.6 % High 0-10 [facility] Neutrophil percentageOrdered By: Nay Greenwood on 12-03-2024 Neutrophils/100 WBC (Bld) 55.4 % 47-70 [facility] Nucleated red blood cell per centageOrdered By: Nay Greenwood on 12-03-2024 Nucleated RBC/100 WBC (Bld) [Ratio] 0 % 0-5 [facility] Platelet countOrdered By: Manan Greenwood on 12-03-2024 Platelets (Bld) [#/Vol] 279 10*3/uL 150-450 [facility] Potassium measurementOrdered By: Nay Greenwood on 12-03-2024 Potassium [Moles/Vol] 4.0 mmol/L 3.5-5.1 [facility] RBC Auto (Bld) [#/Vol]Ordere d By: Nay Greenwood on 12-03-2024 RBC (Bld) [#/Vol] 3.94 10*6/uL Low 4.2-5.4 [facility] Serum anion gap measurementO rdered By: Nay Greenwood on 12-03-2024 Anion gap [Moles/Vol] 5 mmol/L 5-15 [facility] Serum globulin measurementOr dered By: Nay Greenwood on 12-03-2024 Globulin (S) [Mass/Vol] 3.9 g/dL 2.2-4.2 [facility] Serum or plasma alanine barclay otransferase (ALT) measurementOrdered By: Nay Greenwood on 12-03-2024 ALT [Catalytic activity/Vol] 29 U/L 13-56 [facility] Serum or plasma albumin francois urement (mass/volume)Ordered By: Nay Greenwood on 12-03-2024 Albumin [Mass/Vol] 3.0 g/dL Low 3.2-5.0 [facility] Serum or plasma alkaline anitha sphatase measurementOrdered By: Nay Greenwood on 12-03-2024 ALP [Catalytic activity/Vol] 73 U/L 45-117 [facility] Serum or plasma calcium francois urement (mass/volume)Ordered By: Nay Greenwood on 12-03-2024 Calcium [Mass/Vol] 9.3 mg/dL 8.5-10.1 [facility] Serum or plasma creatinine m easurement (mass/volume)Ordered By: Nay Greenwood on 12-03-2024 Creatinine [Mass/Vol] 0.76 mg/dL 0.55-1.02 [facility] Comment on above: The validity of the calculated GFR & GFRAA in patients over 70 years has not been determined. Clinical correlation is essential. Serum or plasma urea nitroge n measurement (mass/volume)Ordered By: Nay Greenwood on 12-03-2024 Urea nitrogen [Mass/Vol] 14 mg/dL 7-18 [facility] Sodium levelOrdered By: Ele Greenwood on 12-03-2024 Sodium [Moles/Vol] 137 mmol/L 136-145 [facility] Total proteinOrdered By: Rhett Greenwood on 12-03-2024 Protein [Mass/Vol] 6.9 g/dL 6.4-8.2 [facility] White blood cell (WBC) count Ordered By: Nay Greenwood on 12-03-2024 WBC (Bld) [#/Vol] 4.7 10*3/uL 4.4-11.0 [facility] Thyroid Stim Hormone (TSH)on 10-17-2024 TSH 5.310 uIU/mL High 0.358-3.740 [facility] Comment on above: Performed By: #### L [id number], L500.4050, L100.0100, L501.5200 #### [facility] [address] [place], [place], [address] Vitamin D,25 Hydroxyon 10-17 Vitamin D 25-OH 25.3 ng/mL Normal [facility] Comment on above: Order Comment: 136 Result Comment: Sherry min D 25(OH) Status Range Deficiency <20 ng/mL (50nmol/L) Insufficiency 20 - 30 ng/mL (50 - 75 nmol/L) Sufficiency 30 - 100 ng/mL (75 - 250 nmol/L) Toxicity >100 ng/mL (>250 nmol/L) Performed By: #### L 501.9572, L500.4050, L100.0100, L501.5200 #### [facility] [address] [place], [place], [address] UDRUGon 03-23-2024 Amphetamine (u) Negative Normal Negative [facility] Comment on above: Performed By: #### U DRUG #### [facility] [address] [address] Barbiturate (u) Negative Normal Negative [facility] Comment on above: Performed By: #### U DRUG #### [facility] [address] [address] Benzodiazepine (u) Negative Normal Negative [facility] ([place]) Comment on above: Performed By: #### U DRUG #### [facility] [id number] [place], [place] [address] Cannabinoid (u) Negative Normal Negative [facility] [facility] ([place]) Comment on above: Performed By: #### U DRUG #### [id number] [place], [place] [address] Cocaine Ql (U) Negative Normal Negative [facility] ([place]) Comment on above: Performed By: #### U DRUG #### [address] [address] Methadone Ql (U) Negative Normal Negative [facility] ([place]) Comment on above: Performed By: #### U DRUG #### [address] [address] [place], [place] [address] Opiate (u) Negative Normal Negative [facility] ([place]) Comment on above: Performed By: #### U DRUG #### [address] [address] PCP (u) Negative Normal Negative [facility] ([place]) Comment on above: Performed By: #### U DRUG #### [address] [address] Urine Drugs screened: See Below Normal [facility] ([place]) Comment on above: Result Comment: This drug screen is a presumptive screening only. No confirmation will be performed unless requested. Drugs screened include: Threshold Amphetamines/Methamphetamines 1,000 ng/mL Barbiturates 200 ng/mL Benzodiazepine metabolites 200 ng/mL Cannabinoids (THC metabolites) 50 ng/mL Cocaine 300 ng/mL Opiates 300 ng/mL Methadone 300 ng/mL Phencyclidine (PCP) 25 ng/mL Testing has been performed FOR MEDICAL PURPOSES ONLY. Performed By: #### U DRUG #### [address] [address] MRI BRAIN W/O CONTRASTon MRI BRAIN W/O CONTRAST ORIGINAL HISTORY: Memory changes COMPARISON: Head CT 21 March 2021 TECHNIQUE: 1. Axial FLAIR images. 2. Axial diffusion-weighted images with ADC map. The patient was unable to tolerate further imaging. FINDINGS: The study is incomplete and nondiagnostic. No diffusion abnormality is seen. IMPRESSION: Incomplete and nondiagnostic examination. Interpreted by: Jefferson Sanderson MD Preliminary Report By: Jefferson Sanderson MD Electronically signed By Jefferson Sanderson MD Dictated Date: 02/10/2024 11:52:47 AM Prelim Date: 02/10/2024 11:53:58 AM Sign Date: 02/10/2024 11:53:58 AM Ordering Provider: STACEY Roblero [facility] ([place]) No Panel Informationon 02-05 Mild to moderate right-sided hydronephrosis. There is rapid clearance of tracer from the right renal collecting system following administration of intravenous Lasix. No evidence of high-grade obstruction is seen. No evidence of left-sided hydronephrosis or obstruction. The right kidney is slightly smaller in size than the left, however renal cortical function appears relatively symmetric and normal. Report Dictated on Electronically Signed By: Pb Stoddard MD Electronically Signed Date/Time: 02/06/2024 4:19 PM EDT [facility] Patient Name: SURINDER RASHEED : 1950 Exam Date/Time: 02/06/2024 14:38 Procedure: NM KIDNEY FLOW/FUNCTION W/WO LASIX Ordering Provider: RAMOS JOSHUA Reason For Exam: upj obstruction MAG3 DIURETIC RENOGRAM CLINICAL INDICATION: UPJ obstruction The patient was given an intravenous dose of 8.2 mCi of technetium 99m MAG3. Flow images over the kidneys were obtained in the posterior projection, followed by delayed images over the following 20 minutes. Activity curves over the kidney were obtained during the flow and parenchymal imaging. The patient was subsequently given an intravenous administration of 40 mg of Lasix and additional post-Lasix imaging of the kidneys was performed for an additional 20 minutes. COMPARISON: None FINDINGS: Initial angiographic phase images demonstrate prompt perfusion to both kidneys. The right kidney is slightly smaller in size than the left. Both kidneys demonstrate prompt uptake and clearance of tracer from the renal parenchyma. Renal cortical split function appears symmetric, with the left renal cortex contributing 42% of overall renal cortical tracer uptake compared with 58% on the right. At the end of pre-Lasix imaging, there is mild to moderate dilatation of the right renal collecting system. No left-sided hydronephrosis is seen. Following administration of intravenous Lasix, there is rapid, fairly complete clearance of tracer from the dilated right renal collecting system. T1/2 clearance time of the right renal collecting system is approximately 6 minutes (nonobstructed less than 10 minutes, high grade obstruction greater than 20 minutes). [facility] Pb Stoddard MD - 02/06/2024 Patient Name: SURINDER RASHEED : 1950 Exam Date/Time: 02/06/2024 14:38 Procedure: NM KIDNEY FLOW/FUNCTION W/WO LASIX Ordering Provider: RAMOS JOSHUA Reason For Exam: upj obstruction MAG3 DIURETIC RENOGRAM CLINICAL INDICATION: UPJ obstruction The patient was given an intravenous dose of 8.2 mCi of technetium 99m MAG3. Flow images over the kidneys were obtained in the posterior projection, followed by delayed images over the following 20 minutes. Activity curves over the kidney were obtained during the flow and parenchymal imaging. The patient was subsequently given an intravenous administration of 40 mg of Lasix and additional post-Lasix imaging of the kidneys was performed for an additional 20 minutes. COMPARISON: None FINDINGS: Initial angiographic phase images demonstrate prompt perfusion to both kidneys. The right kidney is slightly smaller in size than the left. Both kidneys demonstrate prompt uptake and clearance of tracer from the renal parenchyma. Renal cortical split function appears symmetric, with the left renal cortex contributing 42% of overall renal cortical tracer uptake compared with 58% on the right. At the end of pre-Lasix imaging, there is mild to moderate dilatation of the right renal collecting system. No left-sided hydronephrosis is seen. Following administration of intravenous Lasix, there is rapid, fairly complete clearance of tracer from the dilated right renal collecting system. T1/2 clearance time of the right renal collecting system is approximately 6 minutes (nonobstructed less than 10 minutes, high grade obstruction greater than 20 minutes). IMPRESSION: Mild to moderate right-sided hydronephrosis. There is rapid clearance of tracer from the right renal collecting system following administration of intravenous Lasix. No evidence of high-grade obstruction is seen. No evidence of left-sided hydronephrosis or obstruction. The right kidney is slightly smaller in size than the left, however renal cortical function appears relatively symmetric and normal. Report Dictated on Electronically Signed By: Pb Stoddard MD Electronically Signed Date/Time: 02/06/2024 4:19 PM EDT [facility] Radiology Study observation (narrative) [facility] No Panel InformationOrdered By: Pb Stoddard on 02-06-2024 [facility] .Urinalysis Microscopic (AO) on 01-13-2024 UA Bacteria Trace Abnormal [facility] ([place]) Comment on above: Performed By: #### B MP, TSH, FT4, FT3, GFR #### [address] [address] UA RBC 10-15 Abnormal None Seen [facility] ([place]) Comment on above: Performed By: #### B MP, TSH, FT4, FT3, GFR #### [address] [place], [place] [address] UA Squam Epithelial 0-5 Abnormal None Seen [facility] ([place]) Comment on above: Performed By: #### B MP, TSH, FT4, FT3, GFR #### [address] [place], [place] [address] UA WBC 10-15 Abnormal None Seen [facility] ([place]) Comment on above: Performed By: #### B MP, TSH, FT4, FT3, GFR #### [address] [place], [place] [address] CEFTAZIDIME:SUSC:PT:ISOLATE: ORDQN:MICon 01-13-2024 cefTAZidime MEGGAN [Susc] >100,000 cfu/ml Pseudomonas aeruginosa [facility] Work Phone: LABORATORYOrdered By: Venessa Haywood on 01-13-2024 Appearance (U) Clear (01/13/24 4:46 PM) Normal Clear AO Auto Urine SS Bacteria LM.HPF (Urine sed) [#/Area] Trace /HPF Invalid Interpretation Code AO Auto Urine SS Bilirubin Ql (U) Negative (01/13/24 4:46 PM) Normal Negative AO Auto Urine SS Color (U) Yellow (01/13/24 4:46 PM) Normal AO Auto Urine SS Glucose Test strip (U) [Mass/Vol] Negative Normal Negative AO Auto Urine SS Hemoglobin Auto test strip (U) [Mass/Vol] Moderate *ABN* (01/13/24 4:46 PM) Invalid Interpretation Code Negative AO Auto Urine SS Ketones Ql (U) Negative Normal Negative AO Auto Urine SS UA Leuk Est Moderate *ABN* (01/13/24 4:46 PM) Invalid Interpretation Code Negative AO Auto Urine SS UA Nitrite Negative (01/13/24 4:46 PM) Normal Negative AO Auto Urine SS UA pH 6.0 (01/13/24 4:46 PM) Normal 5.0 - 8.0 AO Auto Urine SS UA Protein Negative Normal Negative AO Auto Urine SS UA RBC 10-15 /HPF Invalid Interpretation Code None Seen AO Auto Urine SS UA Spec Grav 1.010 *ABN* (01/13/24 4:46 PM) Invalid Interpretation Code 1.015-1.025 AO Auto Urine SS UA Specimen Type Clean Catch (01/13/24 4:46 PM) Normal AO Auto Urine SS UA Squam Epithelial 0-5 /HPF Invalid Interpretation Code None Seen AO Auto Urine SS UA Urobilinogen 0.2 E.U./dL Normal 0.2-1.0 AO Auto Urine SS WBC LM.HPF (Urine sed) [#/Area] 10-15 /HPF Invalid Interpretation Code None Seen AO Auto Urine SS UAon 01-13-2024 Color (U) Yellow Normal [facility] ([place]) Comment on above: Performed By: #### B MP, TSH, FT4, FT3, GFR #### [address] [address] Glucose (U) [Mass/Vol] Negative Normal Negative [facility] ([place]) Comment on above: Performed By: #### B MP, TSH, FT4, FT3, GFR #### [address] [address] Ketones Ql (U) Negative Normal Negative [facility] ([place] Comment on above: Performed By: #### B MP, TSH, FT4, FT3, GFR #### [address] [address] UA Appear Clear Normal Clear [facility] ([place] Comment on above: Performed By: #### B MP, TSH, FT4, FT3, GFR #### [address] [address] UA Blood Moderate Abnormal Negative [facility] ([place] Comment on above: Performed By: #### B MP, TSH, FT4, FT3, GFR #### [address] [address] UA Leuk Est Moderate Abnormal Negative [facility] ([place] Comment on above: Performed By: #### B MP, TSH, FT4, FT3, GFR #### [address] [address] UA Nitrite Negative Normal Negative [facility] ([place] Comment on above: Performed By: #### B MP, TSH, FT4, FT3, GFR #### [address] [address] UA pH 6.0 Normal 5.0 - 8.0 [facility] ([place] Comment on above: Performed By: #### B MP, TSH, FT4, FT3, GFR #### [address] [address] UA Protein Negative Normal Negative [facility] ([place] Comment on above: Performed By: #### B MP, TSH, FT4, FT3, GFR #### [address] [address] UA Spec Grav 1.010 Abnormal 1.015-1.025 [facility] ([place]) Comment on above: Performed By: #### B MP, TSH, FT4, FT3, GFR #### [address] [address] UA Specimen Type Clean Catch Normal [facility] ([place] Comment on above: Performed By: #### B MP, TSH, FT4, FT3, GFR #### [address] [address] UA Urobilinogen 0.2 E.U./dL Normal 0.2-1.0 [facility] ([place]) Comment on above: Performed By: #### B MP, TSH, FT4, FT3, GFR #### [address] [address] Urobilinogen (U) [Mass/Vol] Negative Normal Negative [facility] ([place] Comment on above: Performed By: #### B MP, TSH, FT4, FT3, GFR #### [address] [address] cefTAZidime MEGGAN [Susc]on Pseudomonas aeruginosa Pseudomonas aeruginosa [facility] Work Phone: Final Flow Cytometry Reporto n 01-12-2024 Final Flow Cytometry Report . Pathology Reports Accession: Collected Date/Time: Received Date/Time: Pathologist: [id number] 01/10/2024 10:46 EST 01/11/2024 06:11 CALVIN RICKETTS MD Final Flow Cytometry Report INTERPRETATION: NO ABNORMAL LYMPHOID OR MYELOID POPULATION SEEN. FLOW CYTOMETRIC ANALYSIS IS NONDIAGNOSTIC. FLOW CYTOMETRY ANALYSIS PHENOTYPE: Phenotype: There is a mixed population of myeloid cells (77% of total) and T and B-cells. B-cells (1% of total) are polytypic and T-cells account for 22%. TEST RESULTS: sKappa B CELLS sLambda B CELLS HLA-DR LEUKOCYTES CD5 T CELLS CD10 LYMPHOCYTES CD11c MONOCYTES CD13 MYELOID CELLS CD14 MONOCYTES CD15 MYELOID CELLS CD19 B-CELLS CD33 MYELOID CELLS CD34 BLAST CELLS CD45 LEUKOCYTES CD64 MYELOID CELLS CD117 MYELOID CELLS CLINICAL DATA: SEVERE WEIGHT LOSS SPECIMEN DESCRIPTION: PERIPHERAL WHOLE BLOOD NA Heparin Tube PATH PROF CPT: 84502 Testing performed by Kerry DISCLAIMER: This test was developed and its performance approved by [facility]. It has not been cleared or approved by the U.S. Food and Drug Administration. The FDA has determined that such clearance or approval is not necessary. This test is used for clinical purposes. It should not be regarded as investigational or for research. This laboratory is certified under the Clinical Laboratory Improvement Amendments of 1998 (CLIA-88) as qualified to perform high complexity clinical laboratory testing. Electronically Signed by Pathology Report verified by [facility] CALVIN RYAN Sign out Date: 01/12/2024 09:59 Performing Lab: [facility], [address] [place] [address] Pathology Dept Normal [facility] [place]) .GFRon 01-10-2024 GFR Non- 53 ml/min/1.73sqm Normal [facility] ([place]) Comment on above: Result Comment: GFR Population mean for , Non- Americans Ages 20-29 = 116 mL/min/1.73 sq.m. Ages 30-39 = 107 mL/min/1.73 sq.m. Ages 40-49 = 99 mL/min/1.73 sq.m. Ages 50-59 = 93 mL/min/1.73 sq.m. Ages 60-69 = 85 mL/min/1.73 sq.m. Ages 70+ = 75 mL/min/1.73 sq.m. Chronic Kidney Disease: Less than 60 mL/min/1.73 square meters End Stage Renal Disease: Less than 15 mL/min/1.73 square meters Performed By: #### B MP, TSH, FT4, FT3, GFR #### [address] [address] GFR 64 ml/min/1.73sqm Normal [facility] ([place]) Comment on above: Result Comment: GFR Population mean for , Non- Americans Ages 20-29 = 116 mL/min/1.73 sq.m. Ages 30-39 = 107 mL/min/1.73 sq.m. Ages 40-49 = 99 mL/min/1.73 sq.m. Ages 50-59 = 93 mL/min/1.73 sq.m. Ages 60-69 = 85 mL/min/1.73 sq.m. Ages 70+ = 75 mL/min/1.73 sq.m. Chronic Kidney Disease: Less than 60 mL/min/1.73 square meters End Stage Renal Disease: Less than 15 mL/min/1.73 square meters Performed By: #### B MP, TSH, FT4, FT3, GFR #### [address] [address] BMPon 01-10-2024 BUN/Creatinine Ratio 20 ratio Normal 7-27 [facility] ([place]) Comment on above: Performed By: #### B MP, TSH, FT4, FT3, GFR #### [address] [address] Calcium [Mass/Vol] 9.5 mg/dL Normal 8.4-10.2 [facility] ([place]) Comment on above: Performed By: #### B MP, TSH, FT4, FT3, GFR #### [address] [address] Chloride [Moles/Vol] 104 mmol/L Normal 98-107 [facility] ([place]) Comment on above: Performed By: #### B MP, TSH, FT4, FT3, GFR #### [address] [address] CO2 [Moles/Vol] 25 mmol/L Normal 23-31 [facility] ([place]) Comment on above: Performed By: #### B MP, TSH, FT4, FT3, GFR #### [address] [address] Creatinine [Mass/Vol] 1.02 mg/dL Normal 0.55-1.02 [facility] ([place]) Comment on above: Performed By: #### B MP, TSH, FT4, FT3, GFR #### [address] [address] Electrolyte Balance 12.0 mEq/L Normal 4.0-15.0 [facility] ([place]) Comment on above: Performed By: #### B MP, TSH, FT4, FT3, GFR #### [address] [address] Glucose [Mass/Vol] 102 mg/dL Normal 83-110 [facility] ([place]) Comment on above: Performed By: #### B MP, TSH, FT4, FT3, GFR #### [address] [address] Potassium [Moles/Vol] 3.6 mmol/L Normal 3.5-5.1 [facility] ([place]) Comment on above: Performed By: #### B MP, TSH, FT4, FT3, GFR #### [address] [address] Sodium [Moles/Vol] 141 mmol/L Normal 136-145 [facility] ([place]) Comment on above: Performed By: #### B MP, TSH, FT4, FT3, GFR #### [address] [address] Urea nitrogen [Mass/Vol] 20 mg/dL High 7-18 [facility] ([place]) Comment on above: Performed By: #### B MP, TSH, FT4, FT3, GFR #### [address] [place], [place] [address] FT3on 01-10-2024 Free T3 [Mass/Vol] 2.32 pg/mL Normal 2.30-4.00 [facility] ([place]) Comment on above: Performed By: #### B MP, TSH, FT4, FT3, GFR #### [address] [place], [place] [address] FT4on 01-10-2024 Free T4 [Mass/Vol] 1.71 ng/dL High 0.76-1.46 [facility] ([place]) Comment on above: Performed By: #### B MP, TSH, FT4, FT3, GFR #### [address] [place], [place] [address] LABORATORYOrdered By: SYSTEM SYSTEM on 01-10-2024 Calcium [Mass/Vol] 9.5 mg/dL Normal 8.4 - 10. 2 mg/dL AO ADM SS Chloride [Moles/Vol] 104 mmol/L Normal 98 - 10 7 mmol/L AO ADM SS CO2 [Moles/Vol] 25 mmol/L Normal 23 - 31 mmol/L AO ADM SS Creatinine [Mass/Vol] 1.02 mg/dL Normal 0.55 - 1.02 mg/dL AO ADM SS Electrolyte Balance 12.0 mEq/L Normal 4.0 - 15 .0 mEq/L AO ADM SS Free T3 [Mass/Vol] 2.32 pg/mL Normal 2.30 - 4. 00 pg/mL AO ADM SS Free T4 [Mass/Vol] 1.71 ng/dL High 0.76 - 1. 46 ng/dL AO ADM SS GFR/1.73 sq M.predicted among blacks MDRD (S/P/Bld) [Vol rate/Area] 64 ml/min/1.73sqm Invalid Interpretation Code AO Chemistry S Comment on above: Interpretive Data: GFR Population mean for , Non- Americans Ages 20-29 = 116 mL/min/1.73 sq.m. Ages 30-39 = 107 mL/min/1.73 sq.m. Ages 40-49 = 99 mL/min/1.73 sq.m. Ages 50-59 = 93 mL/min/1.73 sq.m. Ages 60-69 = 85 mL/min/1.73 sq.m. Ages 70+ = 75 mL/min/1.73 sq.m. Chronic Kidney Disease: Less than 60 mL/min/1.73 square meters End Stage Renal Disease: Less than 15 mL/min/1.73 square meters GFR/1.73 sq M.predicted among non-blacks MDRD (S/P/Bld) [Vol rate/Area] 53 ml/min/1.73sqm Invalid Interpretation Code AO Chemistry S Comment on above: Interpretive Data: GFR Population mean for , Non- Americans Ages 20-29 = 116 mL/min/1.73 sq.m. Ages 30-39 = 107 mL/min/1.73 sq.m. Ages 40-49 = 99 mL/min/1.73 sq.m. Ages 50-59 = 93 mL/min/1.73 sq.m. Ages 60-69 = 85 mL/min/1.73 sq.m. Ages 70+ = 75 mL/min/1.73 sq.m. Chronic Kidney Disease: Less than 60 mL/min/1.73 square meters End Stage Renal Disease: Less than 15 mL/min/1.73 square meters Glucose [Mass/Vol] 102 mg/dL Normal 83 - 110 mg/dL AO ADM SS Potassium [Moles/Vol] 3.6 mmol/L Normal 3.5 - 5.1 mmol/L AO ADM SS Sodium [Moles/Vol] 141 mmol/L Normal 136 - 145 mmol/L AO ADM SS TSH Qn 2.35 m[IU]/L Normal 0.36 - 3.74 mcIU/mL AO ADM SS Urea nitrogen [Mass/Vol] 20 mg/dL High 7 - 18 mg/dL AO ADM SS Urea nitrogen/Creatinine [Mass ratio] 20 ratio Normal 7 - 27 ratio AO ADM SS TSHon 01-10-2024 TSH Qn 2.35 m[IU]/L Normal 0.36-3.74 [facility] ([place] Comment on above: Performed By: #### B MP, TSH, FT4, FT3, GFR #### [place] [id number] No Panel Informationon 01-06 There is no interpretation needed for this exam. IMAGING B1WBon 12-27-2023 Vitamin B1 Whl Bld 103.8 nmol/L Normal 66.5-200.0 [facility] ([place]) Comment on above: Result Comment: This test was developed and its performance characteristics determined by [facility]. It has not been cleared or approved by the Food and Drug Administration. Performed At: [facility] [id number] James Bruce MD Ph:[phone] Performed By: #### B MP, TSH, FT4, FT3, GFR #### [place] [address] B12on 12-24-2023 Cobalamin (Vitamin B12) [Mass/Vol] 226 pg/mL Normal 211-911 [facility] ([place]) Comment on above: Performed By: #### B MP, TSH, FT4, FT3, GFR #### [place] [address] FOLon 12-24-2023 Folate 22.37 ng/mL Normal 5.38-24.00 [facility] ([place]) Comment on above: Performed By: #### B MP, TSH, FT4, FT3, GFR #### [place] [address] HCVon 12-24-2023 Hep C Ab Non-Reactive Normal Non-Reactive [facility] ([place]) Comment on above: Performed By: #### B MP, TSH, FT4, FT3, GFR #### [place] [address] Hep C Ab Int Normal [facility] ([place]) Comment on above: Result Comment: Nonr eactive: Samples with a value < 0.80 are considered nonreactive (negative) for antibodies to HCV. A negative test result does not exclude the possibility of exposure to or infection with HCV. HCV antibodies may be undetectable in some stages of the infection and in some clinical conditions. See Interp Performed By: #### B MP, TSH, FT4, FT3, GFR #### [place] [address] .Auto Diffon 12-23-2023 Basophil, Absolute 0.1 10 3/mcL Normal 0.0-0.2 [facility] ([place]) Comment on above: Performed By: #### B MP, TSH, FT4, FT3, GFR #### [address] [address] Basophils/100 WBC (Bld) 1.4 % Normal 0.0-2.5 A [facility] ([place]) Comment on above: Performed By: #### B MP, TSH, FT4, FT3, GFR #### [address] [address] Eosinophil, Absolute 0.1 10 3/mcL Normal 0.0-0.4 [facility] ([place]) Comment on above: Performed By: #### B MP, TSH, FT4, FT3, GFR #### [address] [address] Eosinophils/100 WBC (Bld) 2.0 % Normal 0.0-7.0 [facility] ([place] Comment on above: Performed By: #### B MP, TSH, FT4, FT3, GFR #### [address] [address] Lymphocyte, Absolute 1.6 10 3/mcL Normal 0.8-3.9 [facility] ([place]) Comment on above: Performed By: #### B MP, TSH, FT4, FT3, GFR #### [address] [address] Lymphocytes/100 WBC (Bld) 33.0 % Normal 10.0-50.0 [facility] ([place]) Comment on above: Performed By: #### B MP, TSH, FT4, FT3, GFR #### [address] [address] Monocyte, Absolute 0.4 10 3/mcL Normal 0.2-1.0 [facility] ([place]) Comment on above: Performed By: #### B MP, TSH, FT4, FT3, GFR #### [address] [address] Monocytes/100 WBC (Bld) 7.4 % Normal 1.7-13.0 A [facility] ([place]) Comment on above: Performed By: #### B MP, TSH, FT4, FT3, GFR #### [address] [place], [place] [address] Neutrophils/100 WBC (Bld) 56.2 % Normal 37.0-80.0 [facility] ([place]) Comment on above: Performed By: #### B MP, TSH, FT4, FT3, GFR #### [address] [address] .GFRon 12-23-2023 GFR Non- 68 ml/min/1.73sqm Normal [facility] ([place]) Comment on above: Result Comment: GFR Population mean for , Non- Americans Ages 20-29 = 116 mL/min/1.73 sq.m. Ages 30-39 = 107 mL/min/1.73 sq.m. Ages 40-49 = 99 mL/min/1.73 sq.m. Ages 50-59 = 93 mL/min/1.73 sq.m. Ages 60-69 = 85 mL/min/1.73 sq.m. Ages 70+ = 75 mL/min/1.73 sq.m. Chronic Kidney Disease: Less than 60 mL/min/1.73 square meters End Stage Renal Disease: Less than 15 mL/min/1.73 square meters Performed By: #### B MP, TSH, FT4, FT3, GFR #### [address] [place], [place] [address] GFR 82 ml/min/1.73sqm Normal [facility] ([place]) Comment on above: Result Comment: GFR Population mean for , Non- Americans Ages 20-29 = 116 mL/min/1.73 sq.m. Ages 30-39 = 107 mL/min/1.73 sq.m. Ages 40-49 = 99 mL/min/1.73 sq.m. Ages 50-59 = 93 mL/min/1.73 sq.m. Ages 60-69 = 85 mL/min/1.73 sq.m. Ages 70+ = 75 mL/min/1.73 sq.m. Chronic Kidney Disease: Less than 60 mL/min/1.73 square meters End Stage Renal Disease: Less than 15 mL/min/1.73 square meters Performed By: #### B MP, TSH, FT4, FT3, GFR #### [place] [address] .Manual Diffon 12-23-2023 Basophil %, Manual 0.0 % Normal 0.0-2.5 [facility] ([place]) Comment on above: Performed By: #### B MP, TSH, FT4, FT3, GFR #### [place] [address] Basophil, Abs Manual 0.0 10 3/mcL Normal 0.0-0.2 [facility] ([place]) Comment on above: Performed By: #### B MP, TSH, FT4, FT3, GFR #### [place] [address] Eosinophil %, Manual 3.0 % Normal 0.0-7.0 [facility] ([place]) Comment on above: Performed By: #### B MP, TSH, FT4, FT3, GFR #### [place] [address] Eosinophil, Abs Manual 0.1 10 3/mcL Normal 0.0-0.4 [facility] ([place]) Comment on above: Performed By: #### B MP, TSH, FT4, FT3, GFR #### [place] [address] Lymphocyte %, Manual 39.0 % Normal 10.0-50.0 [facility] ([place]) Comment on above: Performed By: #### B MP, TSH, FT4, FT3, GFR #### [place] [address] Lymphocyte, Abs Manual 1.9 10 3/mcL Normal 0.8-3.9 [facility] ([place]) Comment on above: Performed By: #### B MP, TSH, FT4, FT3, GFR #### [address] [address] Monocyte %, Manual 4.0 % Normal 1.7-13.0 [facility] ([place]) Comment on above: Performed By: #### B MP, TSH, FT4, FT3, GFR #### [address] [address] Monocyte, Abs Manual 0.2 10 3/mcL Normal 0.2-1.0 [facility] ([place]) Comment on above: Performed By: #### B MP, TSH, FT4, FT3, GFR #### [address] [address] Neutrophil, Abs Manual 2.6 10 3/mcL Low 2.9-6.2 [facility] ([place] Comment on above: Performed By: #### B MP, TSH, FT4, FT3, GFR #### [address] [address] Nucleated RBC 0.0 /100 WBC Normal [facility] ([place] Comment on above: Performed By: #### B MP, TSH, FT4, FT3, GFR #### [address] [address] .Morphon 12-23-2023 Anisocytosis Ql (Bld) 1+ Normal [facility] ([place]) Comment on above: Performed By: #### B MP, TSH, FT4, FT3, GFR #### [address] [address] Platelet Estimate Normal Normal [facility] ([place]) Comment on above: Performed By: #### B MP, TSH, FT4, FT3, GFR #### [address] [address] .NEUABSon 12-23-2023 Neutrophil, Absolute 2.7 10 3/mcL Low 2.9-6.2 [facility] ([place]) Comment on above: Performed By: #### B MP, TSH, FT4, FT3, GFR #### [address] [address] A1Con 12-23-2023 HbA1c (Bld) [Mass fraction] 5.3 % Normal 4.3-6.4 [facility] ([place]) Comment on above: Performed By: #### B MP, TSH, FT4, FT3, GFR #### [address] [address] CBCon 12-23-2023 Erythrocyte distribution width (RBC) [Ratio] 13.5 % Normal 11.5-14.5 [facility] ([place] Comment on above: Performed By: #### B MP, TSH, FT4, FT3, GFR #### [place] [address] Hematocrit (Bld) [Volume fraction] 33.8 % Low 37.0-47.0 [facility] ([place] Comment on above: Performed By: #### B MP, TSH, FT4, FT3, GFR #### [place] [address] Hgb 11.9 G/dL Low 12.0-16.0 [facility] ([place] Comment on above: Performed By: #### B MP, TSH, FT4, FT3, GFR #### [place] [address] MCH (RBC) [Entitic mass] 34.3 pg High 27.0-31.2 [facility] ([place] Comment on above: Performed By: #### B MP, TSH, FT4, FT3, GFR #### [place] [address] MCHC 35.3 G/dL Normal 33.0-37.0 [facility] ([place] Comment on above: Performed By: #### B MP, TSH, FT4, FT3, GFR #### [place] [address] MCV (RBC) [Entitic vol] 97.4 fL High 80.0-94.0 A [facility] ([place]) Comment on above: Performed By: #### B MP, TSH, FT4, FT3, GFR #### [address] [address] Platelet 374 10 3/mcL Normal 130-400 [facility] ([place] Comment on above: Performed By: #### B MP, TSH, FT4, FT3, GFR #### [address] [address] Platelet mean volume (Bld) [Entitic vol] 7.7 fL Normal 7.4-10.4 [facility] ([place] Comment on above: Performed By: #### B MP, TSH, FT4, FT3, GFR #### [address] [address] RBC 3.47 10 6/mcL Low 4.20-5.40 [facility] ([place] Comment on above: Performed By: #### B MP, TSH, FT4, FT3, GFR #### [address] [address] WBC 4.8 10 3/mcL Normal 4.6-10.8 [facility] ([place] Comment on above: Performed By: #### B MP, TSH, FT4, FT3, GFR #### [address] [address] CMPon 12-23-2023 Albumin Level 3.7 G/dL Normal 3.4-4.8 [facility] ([place] Comment on above: Performed By: #### B MP, TSH, FT4, FT3, GFR #### [address] [address] Albumin/Globulin [Mass ratio] 1.1 {ratio} Normal 1.1-2.5 [facility] ([place] Comment on above: Performed By: #### B MP, TSH, FT4, FT3, GFR #### [address] [address] ALP [Catalytic activity/Vol] 69 U/L Normal 40-135 [facility] ([place] Comment on above: Performed By: #### B MP, TSH, FT4, FT3, GFR #### [address] [address] ALT [Catalytic activity/Vol] 28 U/L Normal 14-59 [facility] ([place] Comment on above: Performed By: #### B MP, TSH, FT4, FT3, GFR #### [address] [address] AST [Catalytic activity/Vol] 21 U/L Normal 10-40 [facility] ([place] Comment on above: Performed By: #### B MP, TSH, FT4, FT3, GFR #### [address] [address] Bili Total 1.0 mg/dL Normal 0.2-1.0 [facility] ([place] Comment on above: Result Comment: Use of this assay is not recommended for patients undergoing treatment with eltrombopag due to the potential for falsely elevated results. Performed By: #### B MP, TSH, FT4, FT3, GFR #### [place] [address] BUN/Creatinine Ratio 13 ratio Normal 7-27 [facility] ([place]) Comment on above: Performed By: #### B MP, TSH, FT4, FT3, GFR #### [place] [address] Calcium [Mass/Vol] 9.4 mg/dL Normal 8.4-10.2 [facility] ([place]) Comment on above: Performed By: #### B MP, TSH, FT4, FT3, GFR #### [address] [address] Chloride [Moles/Vol] 104 mmol/L Normal 98-107 [facility] ([place]) Comment on above: Performed By: #### B MP, TSH, FT4, FT3, GFR #### [address] [address] CO2 [Moles/Vol] 28 mmol/L Normal 23-31 [facility] ([place] Comment on above: Performed By: #### B MP, TSH, FT4, FT3, GFR #### [place] [id number] Creatinine [Mass/Vol] 0.82 mg/dL Normal 0.55-1.02 [facility] ([place]) Comment on above: Performed By: #### B MP, TSH, FT4, FT3, GFR #### [address] [address] Electrolyte Balance 8.0 mEq/L Normal 4.0-15.0 [facility] ([place]) Comment on above: Performed By: #### B MP, TSH, FT4, FT3, GFR #### [address] [address] Globulin 3.3 G/dL Normal [facility] ([place] Comment on above: Performed By: #### B MP, TSH, FT4, FT3, GFR #### [address] [address] Glucose [Mass/Vol] 107 mg/dL Normal 83-110 [facility] ([place]) Comment on above: Performed By: #### B MP, TSH, FT4, FT3, GFR #### [address] [address] Potassium [Moles/Vol] 3.4 mmol/L Low 3.5-5.1 [facility] ([place]) Comment on above: Performed By: #### B MP, TSH, FT4, FT3, GFR #### [address] [address] Sodium [Moles/Vol] 140 mmol/L Normal 136-145 [facility] ([place]) Comment on above: Performed By: #### B MP, TSH, FT4, FT3, GFR #### [address] [address] Total Protein 7.0 G/dL Normal 6.4-8.2 [facility] ([place] Comment on above: Performed By: #### B MP, TSH, FT4, FT3, GFR #### [address] [address] Urea nitrogen [Mass/Vol] 11 mg/dL Normal 7-18 [facility] ([place] Comment on above: Performed By: #### B MP, TSH, FT4, FT3, GFR #### [address] [address] FT3on 12-23-2023 Free T3 [Mass/Vol] 2.06 pg/mL Low 2.30-4.00 [facility] ([place]) Comment on above: Performed By: #### B MP, TSH, FT4, FT3, GFR #### [address] [address] FT4on 12-23-2023 Free T4 [Mass/Vol] 1.56 ng/dL High 0.76-1.46 [facility] ([place]) Comment on above: Performed By: #### B MP, TSH, FT4, FT3, GFR #### [address] [address] LABORATORYOrdered By: SYSTEM SYSTEM on 12-23-2023 25-hydroxyvitamin D3 [Mass/Vol] 20.3 ng/mL Invalid Interpretation Code AO ADM SS Comment on above: Interpretive Data: I nterpretive Values Based on Total 25(OH) Vitamin D: Deficient <20 ng/mL Insufficient 20 - <30 ng/mL Sufficient 30-100 ng/mL Albumin BCP dye [Mass/Vol] 3.7 G/dL Normal 3.4 - 4.8 G/dL AO ADM SS Albumin/Globulin [Mass ratio] 1.1 {ratio} Normal 1.1 - 2.5 ratio AO ADM SS ALP [Catalytic activity/Vol] 69 U/L Normal 40 - 135 U/L AO ADM SS ALT With P-5'-P [Catalytic activity/Vol] 28 U/L Normal 14 - 59 U/L AO ADM SS Anisocytosis Ql (Bld) 1+ *NA* (12/23/23 10:09 AM) Invalid Interpretation Code AO Workflow SS AST With P-5'-P [Catalytic activity/Vol] 21 U/L Normal 10 - 40 U/L AO ADM SS Basophil %, Manual 0.0 % Normal 0.0 - 2.5 % AO Wo rkflow SS Basophil, Abs Manual 0.0 103/mcL Normal 0.0 - 0 .2 10^3/mcL AO Workflow SS Basophil, Absolute 0.1 103/mcL Normal 0.0 - 0.2 10^3/mcL AO Workflow SS Basophils/100 WBC (Bld) 1.4 % Normal 0.0 - 2.5 % AO Workflow SS Bilirubin [Mass/Vol] 1.0 mg/dL Normal 0.2 - 1 .0 mg/dL AO ADM SS Comment on above: Interpretive Data: U se of this assay is not recommended for patients undergoing treatment with eltrombopag due to the potential for falsely elevated results. Calcium [Mass/Vol] 9.4 mg/dL Normal 8.4 - 10. 2 mg/dL AO ADM SS Chloride [Moles/Vol] 104 mmol/L Normal 98 - 10 7 mmol/L AO ADM SS CO2 [Moles/Vol] 28 mmol/L Normal 23 - 31 mmol/L AO ADM SS Cobalamin (Vitamin B12) [Mass/Vol] 226 pg/mL Normal 211 - 911 pg/mL AH ADM SS Creatinine [Mass/Vol] 0.82 mg/dL Normal 0.55 - 1.02 mg/dL AO ADM SS Electrolyte Balance 8.0 mEq/L Normal 4.0 - 15 .0 mEq/L AO ADM SS Eosinophil %, Manual 3.0 % Normal 0.0 - 7.0 % AO Workflow SS Eosinophil, Absolute 0.1 103/mcL Normal 0.0 - 0 .4 10^3/mcL AO Workflow SS Eosinophils (Bld) [#/Vol] 0.1 103/mcL Normal 0.0 - 0.4 10^3/mcL AO Workflow SS Eosinophils/100 WBC (Bld) 2.0 % Normal 0.0 - 7.0 % AO Workflow SS Erythrocyte distribution width (RBC) [Ratio] 13.5 % Normal 11.5 - 14.5 % AO Workflow SS Folate [Mass/Vol] 22.37 ng/mL Normal 5.38 - 24. 00 ng/mL AH ADM SS Free T3 [Mass/Vol] 2.06 pg/mL Low 2.30 - 4. 00 pg/mL AO ADM SS Free T4 [Mass/Vol] 1.56 ng/dL High 0.76 - 1. 46 ng/dL AO ADM SS GFR/1.73 sq M.predicted among blacks MDRD (S/P/Bld) [Vol rate/Area] 82 ml/min/1.73sqm Invalid Interpretation Code AO Chemistry S Comment on above: Interpretive Data: GFR Population mean for , Non- Americans Ages 20-29 = 116 mL/min/1.73 sq.m. Ages 30-39 = 107 mL/min/1.73 sq.m. Ages 40-49 = 99 mL/min/1.73 sq.m. Ages 50-59 = 93 mL/min/1.73 sq.m. Ages 60-69 = 85 mL/min/1.73 sq.m. Ages 70+ = 75 mL/min/1.73 sq.m. Chronic Kidney Disease: Less than 60 mL/min/1.73 square meters End Stage Renal Disease: Less than 15 mL/min/1.73 square meters GFR/1.73 sq M.predicted among non-blacks MDRD (S/P/Bld) [Vol rate/Area] 68 ml/min/1.73sqm Invalid Interpretation Code AO Chemistry S Comment on above: Interpretive Data: GFR Population mean for , Non- Americans Ages 20-29 = 116 mL/min/1.73 sq.m. Ages 30-39 = 107 mL/min/1.73 sq.m. Ages 40-49 = 99 mL/min/1.73 sq.m. Ages 50-59 = 93 mL/min/1.73 sq.m. Ages 60-69 = 85 mL/min/1.73 sq.m. Ages 70+ = 75 mL/min/1.73 sq.m. Chronic Kidney Disease: Less than 60 mL/min/1.73 square meters End Stage Renal Disease: Less than 15 mL/min/1.73 square meters Globulin 3.3 G/dL Invalid Interpretation Code AO ADM SS Glucose [Mass/Vol] 107 mg/dL Normal 83 - 110 mg/dL AO ADM SS HbA1c (Bld) [Mass fraction] 5.3 % Normal 4.3 - 6.4 % AO ADM SS Hematocrit (Bld) [Volume fraction] 33.8 % Low 37.0 - 47.0 % AO Workflow SS Hemoglobin (Bld) [Mass/Vol] 11.9 G/dL Low 12.0 - 16.0 G/dL AO Workflow SS Lymphocyte %, Manual 39.0 % Normal 10.0 - 50.0 % AO Workflow SS Lymphocyte, Abs Manual 1.9 103/mcL Normal 0.8 - 3.9 10^3/mcL AO Workflow SS Lymphocyte, Absolute 1.6 103/mcL Normal 0.8 - 3 .9 10^3/mcL AO Workflow SS Lymphocytes/100 WBC (Bld) 33.0 % Normal 10.0 - 50.0 % AO Workflow SS MCH (RBC) [Entitic mass] 34.3 pg High 27.0 - 31.2 pg AO Workflow SS MCHC 35.3 G/dL Normal 33.0 - 37.0 G/dL AO Workflow SS MCV (RBC) [Entitic vol] 97.4 fL High 80.0 - 94.0 fL AO Workflow SS Monocyte %, Manual 4.0 % Normal 1.7 - 13.0 % AO W orkflow SS Monocyte, Abs Manual 0.2 103/mcL Normal 0.2 - 1 .0 10^3/mcL AO Workflow SS Monocyte, Absolute 0.4 103/mcL Normal 0.2 - 1.0 10^3/mcL AO Workflow SS Monocytes/100 WBC (Bld) 7.4 % Normal 1.7 - 13.0 % AO Workflow SS Neutrophil, Abs Manual 2.6 103/mcL Low 2.9 - 6.2 10^3/mcL AO Workflow SS Neutrophil, Absolute 2.7 103/mcL Low 2.9 - 6 .2 10^3/mcL AO Workflow SS Neutrophils/100 WBC (Bld) 56.2 % Normal 37.0 - 80.0 % AO Workflow SS Nucleated RBC 0.0 /100 WBC Invalid Interpretation Code AO Workflow SS Platelet Estimate Normal *NA* (12/23/23 10:09 AM) Invalid Interpretation Code AO Workflow SS Platelet mean volume (Bld) [Entitic vol] 7.7 fL Normal 7.4 - 10.4 fL AO Workflow SS Platelets (Bld) [#/Vol] 374 103/mcL Normal 130 - 400 10^3/mcL AO Workflow SS Potassium [Moles/Vol] 3.4 mmol/L Low 3.5 - 5.1 mmol/L AO ADM SS Protein [Mass/Vol] 7.0 G/dL Normal 6.4 - 8.2 G/dL AO ADM SS RBC (Bld) [#/Vol] 3.47 106/mcL Low 4.20 - 5.4 0 10^6/mcL AO Workflow SS Sodium [Moles/Vol] 140 mmol/L Normal 136 - 145 mmol/L AO ADM SS TSH Qn 1.60 m[IU]/L Normal 0.36 - 3.74 mcIU/mL AO ADM SS Urea nitrogen [Mass/Vol] 11 mg/dL Normal 7 - 18 mg/dL AO ADM SS Urea nitrogen/Creatinine [Mass ratio] 13 ratio Normal 7 - 27 ratio AO ADM SS WBC (Bld) [#/Vol] 4.8 103/mcL Normal 4.6 - 10.8 10^3/mcL AO Workflow SS LABORATORYOrdered By: Willa Devries on 12-23-2023 HCV Ab IA Ql Non-Reactive (12/23/23 10:09 AM) Normal Non-Reactive AH ADM SS HCV Ab IA Ql Nonreactive: Samples with a value < 0.80 are considered nonreactive (negative) for antibodies to HCV.A negative test result does not exclude the possibility of exposure to or infection with HCV. HCV antibodies may be undetectable in some stages of the infection and in some clinical conditions. Invalid Interpretation Code Chemistry S LABORATORYOrdered By: [employer] P CONTRIBUTOR_SYSTEM on 12-23-2023 Vitamin B1 Whl Bld (LC) 103.8 nmol/L Invalid Interpretation Code 66.5-200.0 AO Sendouts SS Comment on above: Result Comment: This test was developed and its performance characteristics determined by [employer]. It has not been cleared or approved by the Food and Drug Administration. Performed At: [facility] [id number] James Bruce MD Ph:[phone] TSHon 12-23-2023 TSH Qn 1.60 m[IU]/L Normal 0.36-3.74 [facility] ([place]) Comment on above: Performed By: #### B MP, TSH, FT4, FT3, GFR #### [address] [address] VIDHon 12-23-2023 Vit. D 25-Hydroxy 20.3 ng/mL Normal [facility] ([place]) Comment on above: Result Comment: Inte rpretive Values Based on Total 25(OH) Vitamin D: Deficient <20 ng/mL Insufficient 20 - <30 ng/mL Sufficient 30-100 ng/mL Performed By: #### B MP, TSH, FT4, FT3, GFR #### [address] GUIDANCE OR USE ONLY - NO N RESULTABLEon 12-06-2023 There is no interpretation needed for this exam. IMAGING .Urinalysis Microscopic (AO) on 11-20-2023 UA Bacteria Trace Abnormal [facility] ([place] Comment on above: Performed By: #### U A, UAMICAO #### [place] [address] UA RBC LOADED Abnormal None Seen [facility] ([place] Comment on above: Performed By: #### U A, UAMICAO #### [place] [address] UA Squam Epithelial 0-5 Abnormal None Seen [facility] ([place]) Comment on above: Performed By: #### U A, UAMICAO #### [place] [address] UA WBC 0-5 Abnormal None Seen [facility] ([place] Comment on above: Performed By: #### U A, UAMICAO #### [place] [address] LABORATORYOrdered By: Johanna Gold on 11-20-2023 Appearance (U) Cloudy *ABN* (11/20/23 1:16 PM) Invalid Interpretation Code Clear AO Auto Urine SS Bacteria LM.HPF (Urine sed) [#/Area] Trace /HPF Invalid Interpretation Code AO Auto Urine SS Bilirubin Ql (U) Moderate *ABN* (11/20/23 1:16 PM) Invalid Interpretation Code Negative AO Auto Urine SS Color (U) Red *ABN* (11/20/23 1:16 PM) Invalid Interpretation Code AO Auto Urine SS Glucose Test strip (U) [Mass/Vol] Negative Normal Negative AO Auto Urine SS Hemoglobin Auto test strip (U) [Mass/Vol] Large *ABN* (11/20/23 1:16 PM) Invalid Interpretation Code Negative AO Auto Urine SS Ketones Ql (U) 15 mg/dL Invalid Interpretation Code Negative AO Auto Urine SS UA Leuk Est Negative (11/20/23 1:16 PM) Normal Negative AO Auto Urine SS UA Nitrite Positive *ABN* (11/20/23 1:16 PM) Invalid Interpretation Code Negative AO Auto Urine SS UA pH 5.5 (11/20/23 1:16 PM) Normal 5.0 - 8.0 AO Auto Urine SS UA Protein >=300 mg/dL Invalid Interpretation Code Negative AO Auto Urine SS UA RBC LOADED /HPF Invalid Interpretation Code None Seen AO Auto Urine SS UA Spec Grav >=1.030 *ABN* (11/20/23 1:16 PM) Invalid Interpretation Code 1.015-1.025 AO Auto Urine SS UA Specimen Type Clean Catch (11/20/23 1:16 PM) Normal AO Auto Urine SS UA Squam Epithelial 0-5 /HPF Invalid Interpretation Code None Seen AO Auto Urine SS UA Urobilinogen 1.0 E.U./dL Normal 0.2-1.0 AO Auto Urine SS WBC LM.HPF (Urine sed) [#/Area] 0-5 /HPF Invalid Interpretation Code None Seen AO Auto Urine SS UAon 11-20-2023 Color (U) Red Abnormal [facility] [place] Comment on above: Performed By: #### U A, UAMICAO #### [address] [address] Glucose (U) [Mass/Vol] Negative Normal Negative [facility] ([place]) Comment on above: Performed By: #### U A, UAMICAO #### [address] [address] Ketones Ql (U) 15 mg/dL Abnormal Negative [facility] ([place] Comment on above: Performed By: #### U A, UAMICAO #### [address] [address] UA Appear Cloudy Abnormal Clear [facility] ([place] Comment on above: Performed By: #### U A, UAMICAO #### [address] [address] UA Bili Moderate Abnormal Negative [facility] ([place] Comment on above: Performed By: #### U A, UAMICAO #### [address] [address] UA Blood Large Abnormal Negative [facility] ([place] Comment on above: Performed By: #### U A, UAMICAO #### [address] [address] UA Leuk Est Negative Normal Negative [facility] ([place] Comment on above: Performed By: #### U A, UAMICAO #### [address] [address] UA Nitrite Positive Abnormal Negative [facility] ([place] Comment on above: Performed By: #### U A, UAMICAO #### [address] [address] UA pH 5.5 Normal 5.0 - 8.0 [facility] ([place] Comment on above: Performed By: #### U A, UAMICAO #### [place] [address] UA Protein >=300 Abnormal Negative [facility] ([place] Comment on above: Performed By: #### U A, UAMICAO #### [place] [address] UA Spec Grav >=1.030 Abnormal 1.015-1.025 [facility] ([place] Comment on above: Performed By: #### U A, UAMICAO #### [place] [address] UA Specimen Type Clean Catch Normal [facility] ([place] Comment on above: Performed By: #### U A, UAMICAO #### [place] [address] UA Urobilinogen 1.0 E.U./dL Normal 0.2-1.0 [facility] ([place] Comment on above: Performed By: #### U A, UAMICAO #### [place] [address] .Urinalysis Microscopic (AO) on 11-12-2023 UA Bacteria Trace Abnormal [facility] ([place] Comment on above: Performed By: #### U A, UAMICAO #### [place] [address] UA Mucous Trace Normal [facility] ([place] Comment on above: Performed By: #### U A, UAMICAO #### [address] [address] UA RBC 0-5 Abnormal None Seen [facility] [place] Comment on above: Performed By: #### U A, UAMICAO #### [address] [address] UA Squam Epithelial 0-5 Abnormal None Seen [facility] ([place] Comment on above: Performed By: #### U A, UAMICAO #### [address] [address] UA WBC 0-5 Abnormal None Seen [facility] [place] Comment on above: Performed By: #### U A, UAMICAO #### [place] [address] UAon 11-12-2023 Color (U) Yellow Normal [facility] [place] Comment on above: Performed By: #### U A, UAMICAO #### [place] [id number] Glucose (U) [Mass/Vol] Negative Normal Negative [facility] ([place]) Comment on above: Performed By: #### U A, UAMICAO #### [address] [address] Ketones Ql (U) Negative Normal Negative [facility] ([place] Comment on above: Performed By: #### U A, UAMICAO #### [address] [address] UA Appear Clear Normal Clear [facility] [place] Comment on above: Performed By: #### U A, UAMICAO #### [address] [address] UA Blood Small Abnormal Negative [facility] [place] Comment on above: Performed By: #### U A, UAMICAO #### [place] [id number] UA Leuk Est Small Abnormal Negative [facility] [place] Comment on above: Performed By: #### U A, UAMICAO #### [place] [address] UA Nitrite Negative Normal Negative [facility] ([place] Comment on above: Performed By: #### U A, UAMICAO #### [address] [address] UA pH 6.0 Normal 5.0 - 8.0 [facility] [place] Comment on above: Performed By: #### U A, UAMICAO #### [place] [address] UA Protein Negative Normal Negative [facility] ([place] Comment on above: Performed By: #### U A, UAMICAO #### [place] [address] UA Spec Grav 1.010 Abnormal 1.015-1.025 [facility] ([place] Comment on above: Performed By: #### U A, UAMICAO #### [place] [address] UA Specimen Type Clean Catch Normal [facility] [place] Comment on above: Performed By: #### U A, UAMICAO #### [place] [address] UA Urobilinogen 0.2 E.U./dL Normal 0.2-1.0 [facility] [place] Comment on above: Performed By: #### U A, UAMICAO #### [place] [address] Urobilinogen (U) [Mass/Vol] Negative Normal Negative [facility] ([place] Comment on above: Performed By: #### U A, UAMICAO #### [place] [address] LABORATORYOrdered By: Balwinder De Los Santos on 11-11-2023 Appearance (U) Clear (11/11/23 11:52 PM) Normal Clear AO Auto Urine SS Bacteria LM.HPF (Urine sed) [#/Area] Trace /HPF Invalid Interpretation Code AO Auto Urine SS Bilirubin Ql (U) Negative (11/11/23 11:52 PM) Normal Negative AO Auto Urine SS Color (U) Yellow (11/11/23 11:52 PM) Normal AO Auto Urine SS Glucose Test strip (U) [Mass/Vol] Negative Normal Negative AO Auto Urine SS Hemoglobin Auto test strip (U) [Mass/Vol] Small *ABN* (11/11/23 11:52 PM) Invalid Interpretation Code Negative AO Auto Urine SS Ketones Ql (U) Negative Normal Negative AO Auto Urine SS UA Leuk Est Small *ABN* (11/11/23 11:52 PM) Invalid Interpretation Code Negative AO Auto Urine SS UA Mucous Trace /HPF Normal AO Auto Urine SS UA Nitrite Negative (11/11/23 11:52 PM) Normal Negative AO Auto Urine SS UA pH 6.0 (11/11/23 11:52 PM) Normal 5.0 - 8.0 AO Auto Urine SS UA Protein Negative Normal Negative AO Auto Urine SS UA RBC 0-5 /HPF Invalid Interpretation Code None Seen AO Auto Urine SS UA Spec Grav 1.010 *ABN* (11/11/23 11:52 PM) Invalid Interpretation Code 1.015-1.025 AO Auto Urine SS UA Specimen Type Clean Catch (11/11/23 11:52 PM) Normal AO Auto Urine SS UA Squam Epithelial 0-5 /HPF Invalid Interpretation Code None Seen AO Auto Urine SS UA Urobilinogen 0.2 E.U./dL Normal 0.2-1.0 AO Auto Urine SS WBC LM.HPF (Urine sed) [#/Area] 0-5 /HPF Invalid Interpretation Code None Seen AO Auto Urine SS No Panel Informationon 11-10 Bilirubin, [facility] Small [facility] Glucose, UA 100 [facility] Ketones, UA (mg/dL) Negative Negative mg/dL [facility] Leukocytes, UA Small [facility] th Nitrite, UA Positive [facility] pH, UA 6.0 [facility] Protein, UA Negative [facility] Spec Grav, UA 1.010 [facility] Urobilinogen, UA 0.2 [facility] CT ABDOMEN/PELVIS W/O CONTRA STon 11-08-2023 CT ABDOMEN/PELVIS W/O CONTRAST ORIGINAL EXAMINATION: CT OF THE ABDOMEN AND PELVIS WITHOUT KTLFESPK41/12/2023 1:46 pm TECHNIQUE: CT of the abdomen and pelvis was performed without the administration of intravenous contrast. Multiplanar reformatted images are provided for review. Automated exposure control, iterative reconstruction, and/or weight based adjustment of the mA/kV was utilized to reduce the radiation dose to as low as reasonably achievable. COMPARISON: 11/28/2014. HISTORY: ORDERING SYSTEM PROVIDED HISTORY: Reason for Exam: concern for nephrolithiasis FINDINGS: There is no evidence of pulmonary nodule or pleural effusion at the level of the lung bases. The liver, spleen, pancreas, gallbladder, adrenals have a grossly unremarkable appearance, without intravenous contrast. Atherosclerotic changes are noted in the abdominal aorta, without evidence of aneurysm. Lack of oral contrast limits evaluation of the large and small bowel. There is sigmoid colonic diverticulosis, without gross evidence of diverticulitis. There is no evidence of large or small bowel obstruction or inflammation. There is no evidence of a dilated vermiform appendix. No free intraperitoneal fluid or air is identified. Uterus is not identified and is likely surgically absent. No adnexal lesion is seen. There is a 1.2 by 1.1 cm lower pole right renal calculus. 9 x 7 x 6 mm calculus is present in the posterior midpole of the right kidney. 9 by 4 by 8 mm calculus is identified within the dependent portion of the dilated right intrarenal collecting system. There is marked right hydronephrosis with abrupt caliber change at the ureteropelvic junction. No calculus or lesion is identified at the UPJ. There is no evidence of right ureteral calcification or hydronephrosis. There is a 4.7 x 3.7 cm cyst in the medial upper pole of the right kidney with multiple smaller left renal cystic lesions identified. 2 mm calcification is noted in the posterior midpole of the left kidney but there is no evidence of left-sided hydronephrosis, hydroureter or urolithiasis. No urinary bladder calculus is identified. There is no evidence of anterior abdominal wall hernia. Bone windows reveal no evidence of acute fracture or osteolytic/osteoblast ic lesion grade IMPRESSION: Multiple right renal calculi, including a 9 mm intrarenal collecting system calculus. Marked right hydronephrosis with abrupt caliber change at the ureteropelvic junction. Differential diagnostic considerations include chronic UPJ obstruction secondary to stenosis or intermittent obstruction due to the intrarenal collecting system calculus. Bilateral renal cystic lesions. Interpreted by: Victor M Duarte Preliminary Report By: Victor M Duarte Electronically signed By Victor M Duarte Dictated Date: 11/08/2023 2:00:42 PM Prelim Date: 11/08/2023 2:09:59 PM Sign Date: 11/08/2023 2:09:59 PM Ordering Provider: STACEY Roblero [facility] [place] .Urinalysis Microscopic (AO) on 11-07-2023 UA Bacteria 1+ /hpf Abnormal [facility] [place] Comment on above: Performed By: #### B MP, TSH, FT4, FT3, GFR #### [address] [address] UA RBC LOADED Abnormal None Seen [facility] [place] Comment on above: Performed By: #### B MP, TSH, FT4, FT3, GFR #### [address] [address] UA Squam Epithelial 0-5 Abnormal None Seen [facility] ([place] Comment on above: Performed By: #### B MP, TSH, FT4, FT3, GFR #### [address] [address] UA WBC 0-5 Abnormal None Seen [facility] [place] Comment on above: Performed By: #### B MP, TSH, FT4, FT3, GFR #### [place] [place], [place] [address] LABORATORYOrdered By: Johanna Gold on 11-07-2023 Appearance (U) Slightly Cloudy *ABN* (11/07/23 12:56 AM) Invalid Interpretation Code Clear AO Auto Urine SS Bacteria LM.HPF (Urine sed) [#/Area] 1 /[HPF] Invalid Interpretation Code AO Auto Urine SS Bilirubin Ql (U) Negative (11/07/23 12:56 AM) Normal Negative AO Auto Urine SS Color (U) [place] Invalid Interpretation Code AO Auto Urine SS Glucose Test strip (U) [Mass/Vol] Negative Normal Negative AO Auto Urine SS Hemoglobin Auto test strip (U) [Mass/Vol] Large *ABN* (11/07/23 12:56 AM) Invalid Interpretation Code Negative AO Auto Urine SS Ketones Ql (U) Negative Normal Negative AO Auto Urine SS UA Leuk Est Small *ABN* (11/07/23 12:56 AM) Invalid Interpretation Code Negative AO Auto Urine SS UA Nitrite Negative (11/07/23 12:56 AM) Normal Negative AO Auto Urine SS UA pH 6.0 (11/07/23 12:56 AM) Normal 5.0 - 8.0 AO Auto Urine SS UA Protein 30 mg/dL Normal Negative AO Auto Urine SS UA RBC LOADED /HPF Invalid Interpretation Code None Seen AO Auto Urine SS UA Spec Grav 1.010 *ABN* (11/07/23 12:56 AM) Invalid Interpretation Code 1.015-1.025 AO Auto Urine SS UA Specimen Type Void (11/07/23 12:56 AM) Normal AO Auto Urine SS UA Squam Epithelial 0-5 /HPF Invalid Interpretation Code None Seen AO Auto Urine SS UA Urobilinogen 0.2 E.U./dL Normal 0.2-1.0 AO Auto Urine SS WBC LM.HPF (Urine sed) [#/Area] 0-5 /HPF Invalid Interpretation Code None Seen AO Auto Urine SS UAon 11-07-2023 Color (U) [place] Normal [facility] [place] Comment on above: Performed By: #### B MP, TSH, FT4, FT3, GFR #### [address] [address] Glucose (U) [Mass/Vol] Negative Normal Negative [facility] ([place]) Comment on above: Performed By: #### B MP, TSH, FT4, FT3, GFR #### [address] [address] Ketones Ql (U) Negative Normal Negative [facility] [place] Comment on above: Performed By: #### B MP, TSH, FT4, FT3, GFR #### [address] [address] UA Appear Slightly Cloudy Abnormal Clear [facility] [place] Comment on above: Performed By: #### B MP, TSH, FT4, FT3, GFR #### [address] [address] UA Blood Large Abnormal Negative [facility] [place] Comment on above: Performed By: #### B MP, TSH, FT4, FT3, GFR #### [address] [address] UA Leuk Est Small Abnormal Negative [facility] [place] Comment on above: Performed By: #### B MP, TSH, FT4, FT3, GFR #### [address] [address] UA Nitrite Negative Normal Negative [facility] [place] Comment on above: Performed By: #### B MP, TSH, FT4, FT3, GFR #### [address] [address] UA pH 6.0 Normal 5.0 - 8.0 [facility] [place] Comment on above: Performed By: #### B MP, TSH, FT4, FT3, GFR #### [address] [address] UA Protein 30 mg/dL Normal Negative [facility] [place] Comment on above: Performed By: #### B MP, TSH, FT4, FT3, GFR #### [address] [address] UA Spec Grav 1.010 Abnormal 1.015-1.025 [facility] [place] Comment on above: Performed By: #### B MP, TSH, FT4, FT3, GFR #### [address] [address] UA Specimen Type Void Normal [facility] [place] Comment on above: Performed By: #### B MP, TSH, FT4, FT3, GFR #### [address] [address] UA Urobilinogen 0.2 E.U./dL Normal 0.2-1.0 [facility] [place] Comment on above: Performed By: #### B MP, TSH, FT4, FT3, GFR #### [address] [address] Urobilinogen (U) [Mass/Vol] Negative Normal Negative [facility] [place] Comment on above: Performed By: #### B MP, TSH, FT4, FT3, GFR #### [place] [address] CEFUROXIME:SUSC:PT:ISOLATE:O RDQN:MICon 10-24-2023 Cefuroxime MEGGAN [Susc] >100,000 cfu/ml Klebsiella pneumoniae >100,000 cfu/ml Klebsiella pneumoniae #2 [facility] Work Phone: Cefuroxime MEGGAN [Susc]on 09-29 Klebsiella pneumoniae Klebsiella pneumoniae [facility] Work Phone: .Manual Diffon 06-07-2023 Basophil %, Manual 1.0 % Normal 0.0-2.5 [facility] ([place] Comment on above: Performed By: #### B MP, TSH, FT4, FT3, GFR #### [place] [address] Basophil, Abs Manual 0.1 10 3/mcL Normal 0.0-0.2 [facility] ([place]) Comment on above: Performed By: #### B MP, TSH, FT4, FT3, GFR #### [place] [address] Eosinophil %, Manual 3.0 % Normal 0.0-7.0 [facility] ([place]) Comment on above: Performed By: #### B MP, TSH, FT4, FT3, GFR #### [address] [address] Eosinophil, Abs Manual 0.1 10 3/mcL Normal 0.0-0.4 [facility] [place] Comment on above: Performed By: #### B MP, TSH, FT4, FT3, GFR #### [place] [address] Lymphocyte %, Manual 37.0 % Normal 10.0-50.0 [facility] ([place]) Comment on above: Performed By: #### B MP, TSH, FT4, FT3, GFR #### [address] [address] Lymphocyte, Abs Manual 1.7 10 3/mcL Normal 0.8-3.9 [facility] [place] Comment on above: Performed By: #### B MP, TSH, FT4, FT3, GFR #### [address] [address] Monocyte %, Manual 5.0 % Normal 1.7-13.0 [facility] ([place] Comment on above: Performed By: #### B MP, TSH, FT4, FT3, GFR #### [address] [address] Monocyte, Abs Manual 0.2 10 3/mcL Normal 0.2-1.0 [facility] ([place] Comment on above: Performed By: #### B MP, TSH, FT4, FT3, GFR #### [address] [address] Neutrophil %, Manual 54.0 % Normal 37.0-80.0 [facility] ([place] Comment on above: Performed By: #### B MP, TSH, FT4, FT3, GFR #### [address] [address] Neutrophil, Abs Manual 2.5 10 3/mcL Low 2.9-6.2 [facility] [place] Comment on above: Performed By: #### B MP, TSH, FT4, FT3, GFR #### [address] [address] Nucleated RBC 0.0 /100 WBC Normal [facility] [place] Comment on above: Performed By: #### B MP, TSH, FT4, FT3, GFR #### [address] [address] .Morphon 06-07-2023 Hyperseg 1+ Normal [facility] [place] Comment on above: Performed By: #### B MP, TSH, FT4, FT3, GFR #### [address] [address] Platelet Estimate Normal Normal [facility] [place] Comment on above: Performed By: #### B MP, TSH, FT4, FT3, GFR #### [address] [address] CBCon 06-07-2023 Erythrocyte distribution width (RBC) [Ratio] 13.4 % Normal 11.5-14.5 [facility] [place] Comment on above: Performed By: #### B MP, TSH, FT4, FT3, GFR #### [place] [address] Hematocrit (Bld) [Volume fraction] 34.4 % Low 37.0-47.0 [facility] ([place] Comment on above: Performed By: #### B MP, TSH, FT4, FT3, GFR #### [place] [address] Hgb 11.8 G/dL Low 12.0-16.0 [facility] ([place] Comment on above: Performed By: #### B MP, TSH, FT4, FT3, GFR #### [address] [address] MCH (RBC) [Entitic mass] 32.8 pg High 27.0-31.2 [facility] [place] Comment on above: Performed By: #### B MP, TSH, FT4, FT3, GFR #### [place] [address] MCHC 34.4 G/dL Normal 33.0-37.0 [facility] [place] Comment on above: Performed By: #### B MP, TSH, FT4, FT3, GFR #### [address] [address] MCV (RBC) [Entitic vol] 95.4 fL High 80.0-94.0 A [facility] ([place]) Comment on above: Performed By: #### B MP, TSH, FT4, FT3, GFR #### [place] [id number] Platelet 281 10 3/mcL Normal 130-400 [facility] [place] Comment on above: Performed By: #### B MP, TSH, FT4, FT3, GFR #### [address] [address] Platelet mean volume (Bld) [Entitic vol] 7.1 fL Low 7.4-10.4 [facility] [place] Comment on above: Performed By: #### B MP, TSH, FT4, FT3, GFR #### [place] [address] RBC 3.61 10 6/mcL Low 4.20-5.40 [facility] [place] Comment on above: Performed By: #### B MP, TSH, FT4, FT3, GFR #### [address] [address] WBC 4.6 10 3/mcL Normal 4.6-10.8 [facility] [place] Comment on above: Performed By: #### B MP, TSH, FT4, FT3, GFR #### [address] [address] FT4on 06-07-2023 Free T4 [Mass/Vol] 1.27 ng/dL Normal 0.76-1.46 [facility]) Comment on above: Performed By: #### B MP, TSH, FT4, FT3, GFR #### [address] [address] TSHon 06-07-2023 TSH Qn 1.45 m[IU]/L Normal 0.36-3.74 [facility] ([place] Comment on above: Performed By: #### B MP, TSH, FT4, FT3, GFR #### [address] [address] LABORATORYOrdered By: Johanna Gold on 02-15-2023 Albumin DL <= 20 mg/L (U) [Mass/Vol] 9173 mcg/dL Invalid Interpretation Code AO ADM SS Albumin/Creatinine DL <= 20 mg/L (U) [Mass ratio] 107 mcg/mg Invalid Interpretation Code 0 - 30 mcg/mg AO ADM SS Creatinine (U) [Mass/Vol] 85.8 mg/dL Invalid Interpretation Code 28.0 - 117.0 mg/dL AO ADM SS Cholesterol [Mass/Vol] 281 mg/dL Invalid Interpretation Code 0 - 200 mg/dL AO ADM SS Cholesterol in HDL [Mass/Vol] 101 mg/dL Invalid Interpretation Code 40 - 60 mg/dL AO ADM SS Cholesterol in LDL [Mass/Vol] 164 mg/dL Invalid Interpretation Code 0 - 130 mg/dL AO ADM SS Triglyceride [Mass/Vol] 81 mg/dL Invalid Interpretation Code 0 - 150 mg/dL AO ADM SS LABORATORYOrdered By: Balwinder De Los Santos on 02-15-2023 Appearance (U) Cloudy *ABN* (02/15/23 1:29 PM) Invalid Interpretation Code Clear AO Auto Urine SS Bacteria LM.HPF (Urine sed) [#/Area] 4 /[HPF] Invalid Interpretation Code AO Auto Urine SS Bilirubin Ql (U) Negative (02/15/23 1:29 PM) Invalid Interpretation Code Negative AO Auto Urine SS Color (U) Yellow (02/15/23 1:29 PM) Invalid Interpretation Code AO Auto Urine SS Glucose Test strip (U) [Mass/Vol] Negative Invalid Interpretation Code Negativemg/d L AO Auto Urine SS Hemoglobin Auto test strip (U) [Mass/Vol] Moderate *ABN* (02/15/23 1:29 PM) Invalid Interpretation Code Negative AO Auto Urine SS Ketones Ql (U) Negative Invalid Interpretation Code Negativemg/d L AO Auto Urine SS UA Leuk Est Large *ABN* (02/15/23 1:29 PM) Invalid Interpretation Code Negative AO Auto Urine SS UA Nitrite Positive *ABN* (02/15/23 1:29 PM) Invalid Interpretation Code Negative AO Auto Urine SS UA pH 6.5 (02/15/23 1:29 PM) Invalid Interpretation Code 5.0 - 8.0 AO Auto Urine SS UA Protein 100 mg/dL Invalid Interpretation Code Negativemg/d L AO Auto Urine SS UA RBC LOADED /HPF Invalid Interpretation Code None Seen/HPF AO Auto Urine SS UA Renal Epithelial Rare /HPF Invalid Interpretation Code AO Auto Urine SS UA Spec Grav 1.020 (02/15/23 1:29 PM) Invalid Interpretation Code 1.015-1.025 AO Auto Urine SS UA Specimen Type Clean Catch (02/15/23 1:29 PM) Invalid Interpretation Code AO Auto Urine SS UA Squam Epithelial 0-5 /HPF Invalid Interpretation Code None Seen/HPF AO Auto Urine SS UA Urobilinogen 0.2 E.U./dL Invalid Interpretation Code 0.2-1.0E.U./ dL AO Auto Urine SS WBC LM.HPF (Urine sed) [#/Area] LOADED /HPF Invalid Interpretation Code None Seen/HPF AO Auto Urine SS LABORATORYOrdered By: SYSTEM SYSTEM on 02-15-2023 Albumin BCP dye [Mass/Vol] 3.5 G/dL Invalid Interpretation Code 3.4 - 4.8 G/dL AO ADM SS Albumin/Globulin [Mass ratio] 1.0 {ratio} Invalid Interpretation Code 1.1 - 2.5 ratio AO ADM SS ALP [Catalytic activity/Vol] 87 U/L Invalid Interpretation Code 40 - 135 U/L AO ADM SS ALT With P-5'-P [Catalytic activity/Vol] 26 U/L Invalid Interpretation Code 14 - 59 U/L AO ADM SS AST With P-5'-P [Catalytic activity/Vol] 28 U/L Invalid Interpretation Code 10 - 40 U/L AO ADM SS Bilirubin [Mass/Vol] 0.5 mg/dL Invalid Interpretation Code 0.2 - 1.0 mg/dL AO ADM SS Calcium [Mass/Vol] 8.7 mg/dL Invalid Interpretation Code 8.4 - 10.2 mg/dL AO ADM SS Chloride [Moles/Vol] 101 mmol/L Invalid Interpretation Code 98 - 107 mmol/L AO ADM SS CO2 [Moles/Vol] 26 mmol/L Invalid Interpretation Code 23 - 31 mmol/L AO ADM SS Creatinine [Mass/Vol] 0.75 mg/dL Invalid Interpretation Code 0.55 - 1.02 mg/dL AO ADM SS Electrolyte Balance 9.0 mEq/L Invalid Interpretation Code 4.0 - 15.0 mEq/L AO ADM SS Free T4 [Mass/Vol] 1.60 ng/dL Invalid Interpretation Code 0.76 - 1.46 ng/dL AO ADM SS GFR 91 ml/min/1.73sqm Invalid Interpretation Code AO Chemistry S GFR Non- 75 ml/min/1.73sqm Invalid Interpretation Code AO Chemistry S Globulin 3.5 G/dL Invalid Interpretation Code AO ADM SS Glucose [Mass/Vol] 90 mg/dL Invalid Interpretation Code 83 - 110 mg/dL AO ADM SS HbA1c (Bld) [Mass fraction] 5.1 % Invalid Interpretation Code 4.3 - 6.4 % AO ADM SS Potassium [Moles/Vol] 3.7 mmol/L Invalid Interpretation Code 3.5 - 5.1 mmol/L AO ADM SS Protein [Mass/Vol] 7.0 G/dL Invalid Interpretation Code 6.4 - 8.2 G/dL AO ADM SS Sodium [Moles/Vol] 136 mmol/L Invalid Interpretation Code 136 - 145 mmol/L AO ADM SS TSH Qn 1.98 m[IU]/L Invalid Interpretation Code 0.36 - 3.74 mcIU/mL AO ADM SS Urea nitrogen [Mass/Vol] 17 mg/dL Invalid Interpretation Code 7 - 18 mg/dL AO ADM SS Urea nitrogen/Creatinine [Mass ratio] 23 ratio Invalid Interpretation Code 7 - 27 ratio AO ADM SS LABORATORYOrdered By: Chalino Osborne on 02-15-2023 Basophil %, Manual 2.0 1 Invalid Interpretation Code 0.0 - 2.5 % AO Hematology S Basophil, Abs Manual 0.1 103/mcL Invalid Interpretation Code 0.0 - 0.2 10^3/mcL AO Hematology S Basophil, Absolute 0.1 103/mcL Invalid Interpretation Code 0.0 - 0.2 10^3/mcL AO Workflow SS Basophils/100 WBC (Bld) 1.4 % Invalid Interpretation Code 0.0 - 2.5 % AO Workflow SS Cells Counted 100 Invalid Interpretation Code AO Hematology S Eosinophil %, Manual 2.0 1 Invalid Interpretation Code 0.0 - 7.0 % AO Hematology S Eosinophil, Absolute 0.1 103/mcL Invalid Interpretation Code 0.0 - 0.4 10^3/mcL AO Workflow SS Eosinophils (Bld) [#/Vol] 0.1 103/mcL Invalid Interpretation Code 0.0 - 0.4 10^3/mcL AO Hematology S Eosinophils/100 WBC (Bld) 1.9 % Invalid Interpretation Code 0.0 - 7.0 % AO Workflow SS Erythrocyte distribution width (RBC) [Ratio] 16.0 % Invalid Interpretation Code 11.5 - 14.5 % AO Workflow SS Hematocrit (Bld) [Volume fraction] 32.0 % Invalid Interpretation Code 37.0 - 47.0 % AO Workflow SS Hemoglobin (Bld) [Mass/Vol] 10.9 G/dL Invalid Interpretation Code 12.0 - 16.0 G/dL AO Workflow SS Lymphocyte %, Manual 30.0 1 Invalid Interpretation Code 10.0 - 50.0 % AO Hematology S Lymphocyte, Abs Manual 1.3 103/mcL Invalid Interpretation Code 0.8 - 3.9 10^3/mcL AO Hematology S Lymphocyte, Absolute 1.4 103/mcL Invalid Interpretation Code 0.8 - 3.9 10^3/mcL AO Workflow SS Lymphocytes/100 WBC (Bld) 31.0 % Invalid Interpretation Code 10.0 - 50.0 % AO Workflow SS MCH (RBC) [Entitic mass] 32.9 pg Invalid Interpretation Code 27.0 - 31.2 pg AO Workflow SS MCHC 34.0 G/dL Invalid Interpretation Code 33.0 - 37.0 G/dL AO Workflow SS MCV (RBC) [Entitic vol] 96.8 fL Invalid Interpretation Code 80.0 - 94.0 fL AO Workflow SS Monocyte %, Manual 4.0 1 Invalid Interpretation Code 1.7 - 13.0 % AO Hematology S Monocyte, Abs Manual 0.2 103/mcL Invalid Interpretation Code 0.2 - 1.0 10^3/mcL AO Hematology S Monocyte, Absolute 0.4 103/mcL Invalid Interpretation Code 0.2 - 1.0 10^3/mcL AO Workflow SS Monocytes/100 WBC (Bld) 8.2 % Invalid Interpretation Code 1.7 - 13.0 % AO Workflow SS Neutrophil %, Manual 62.0 1 Invalid Interpretation Code 37.0 - 80.0 % AO Hematology S Neutrophil, Abs Manual 2.8 103/mcL Invalid Interpretation Code 2.9 - 6.2 10^3/mcL AO Hematology S Neutrophil, Absolute 2.6 103/mcL Invalid Interpretation Code 2.9 - 6.2 10^3/mcL AO Workflow SS Neutrophils/100 WBC (Bld) 57.5 % Invalid Interpretation Code 37.0 - 80.0 % AO Workflow SS Platelet Estimate Normal (02/15/23 12:04 PM) Invalid Interpretation Code AO Hematology S Platelet mean volume (Bld) [Entitic vol] 7.3 fL Invalid Interpretation Code 7.4 - 10.4 fL AO Workflow SS Platelets (Bld) [#/Vol] 278 103/mcL Invalid Interpretation Code 130 - 400 10^3/mcL AO Workflow SS RBC (Bld) [#/Vol] 3.31 106/mcL Invalid Interpretation Code 4.20 - 5.40 10^6/mcL AO Workflow SS WBC (Bld) [#/Vol] 4.5 103/mcL Invalid Interpretation Code 4.6 - 10.8 10^3/mcL AO Workflow SS Absolute lymphocyte countOrd ered By: Dr. Guevara on 12-30-2022 Lymphocytes Auto (Unsp spec) [#/Vol] 1.97 10*3/uL 0.83-4.51 [facility] Basophil percentageOrdered B y: Dr. Guevara on 12-30-2022 Basophils/100 WBC (Bld) 0.5 % 0-1 [facility] Chloride [Moles/Vol] 108 mmol/L 98-107 [facility] Eosinophils/100 WBC (Bld) 3.1 % 0-5 [facility] Glucose [Mass/Vol] 109 mg/dL 74-106 [facility] Comment on above: Fasting Glucose resu lt from 100 to 125 mg/dL suggests IMPAIRED HOMEOSTASIS per A.D.A. criteria. Neutrophils (Bld) [#/Vol] 3.7 10*3/uL 2.0-7.7 [facility] Neutrophils/100 WBC (Bld) 57.0 % 47-70 [facility] Potassium [Moles/Vol] 3.9 mmol/L 3.5-5.1 [facility] Sodium [Moles/Vol] 139 mmol/L 136-145 [facility] WBC (Bld) [#/Vol] 6.5 10*3/uL 4.4-11.0 [facility] Blood erythrocytes count (nu mber/volume)Ordered By: Dr. Guevara on 12-30-2022 RBC (Bld) [#/Vol] 3.12 10*6/uL 4.2-5.4 [facility] Blood hemoglobin measurement (mass/volume)Ordered By: Dr. Guevara on 12-30-2022 Hemoglobin (Bld) [Mass/Vol] 10.2 g/dL 12.0-15.0 [facility] Blood lymphocytes/100 leukoc ytesOrdered By: Dr. Guevara on 12-30-2022 Lymphocytes/100 WBC (Bld) 30.3 % 19-41 [facility] Blood monocytes/100 leukocyt esOrdered By: Dr. Guevara on 12-30-2022 Monocytes/100 WBC (Bld) 8.8 % 0-10 [facility] Blood platelet mean volumeOr dered By: Dr. Guevara on 12-30-2022 Platelet mean volume (Bld) [Entitic vol] 8.5 fL 6.2-12.0 [facility] Determination of erythrocyte mean corpuscular volume (MCV)Ordered By: Dr. Guevara on 12-30-2022 MCV (RBC) [Entitic vol] 97.8 fL 81-99 [facility] Hematocrit Auto (Bld) [Volum e fraction]Ordered By: Dr. Guevara on 12-30-2022 Hematocrit (Bld) [Volume fraction] 30.5 % 37-47 [facility] Laboratory - Chemistry and C hemistry - challengeOrdered By: Dr. Guevara on 12-30-2022 CO2 [Moles/Vol] 23.0 mmol/L 21.0-32.0 [facility] Urea nitrogen/Creatinine [Mass ratio] 18.0 mg/mg 10-20 [facility] Laboratory - Hematology and Cell countsOrdered By: Dr. Guevara on 12-30-2022 Erythrocyte distribution width (RBC) [Entitic vol] 45.5 fL 35.1-43.9 [facility] Erythrocyte distribution width (RBC) [Ratio] 13.2 % 11.6-14.6 [facility] Immature granulocytes/100 WBC (Bld) 0.300 % 0.0-0.9 [facility] Comment on above: IG% - Immature Granu locytes (promyelocytes, myelocytes and metamyelocytes) > 1% indicates that a LEFT SHIFT is Present. MCH (RBC) [Entitic mass] 32.7 pg 27.0-32.0 [facility] Nucleated RBC/100 WBC (Bld) [Ratio] 0 % 0-5 [facility] MCHC Auto (RBC) [Mass/Vol]Or dered By: Dr. Guevara on 12-30-2022 MCHC (RBC) [Mass/Vol] 33.4 g/dL 32-36 [facility] No Panel InformationOrdered By: Dr. Guevara on 12-30-2022 Estimated Creatinine Clearance Calc 42.62 ml/min [facility] Estimated GFR (MDRD) Amer 123 mL/min >60 [facility] Comment on above: GFR Calc Estimated GFR (MDRD) Non-Af Amer 102 mL/min >60 [facility] Comment on above: Non- GFR Calc Platelets bldOrdered By: Dr. Guevara on 12-30-2022 Platelets (Bld) [#/Vol] 360 10*3/uL 150-450 [facility] Serum or plasma calcium francois urement (mass/volume)Ordered By: Dr. Guevara on 12-30-2022 Calcium [Mass/Vol] 9.1 mg/dL 8.5-10.1 [facility] Serum or plasma creatinine m easurement (mass/volume)Ordered By: Dr. Guevara on 12-30-2022 Creatinine [Mass/Vol] 0.61 mg/dL 0.55-1.02 [facility] Comment on above: The validity of the calculated GFR & GFRAA in patients over 70 years has not been determined. Clinical correlation is essential. Serum or plasma urea nitroge n measurement (mass/volume)Ordered By: Dr. Guevara on 12-30-2022 Urea nitrogen [Mass/Vol] 11 mg/dL 7-18 [facility] Thin prep Papanicolaou smear with manual screeningOrdered By: Dr. Guevara on 12-30-2022 Thin prep Papanicolaou smear with manual screening 8 5-15 [facility] COVID-19 virus antigen assay Ordered By: Dr. Guevara on 12-26-2022 SARS-CoV-2 (COVID-19) Ag IA.rapid Ql (Resp) [facility] Hemogramon 09-24-2022 Erythrocyte distribution width (RBC) [Ratio] 13.5 % Normal 11.5-14.5 [facility] Comment on above: Performed By: #### B MP3, HEMOG #### [facility] [address] [place] [address] Hematocrit (Bld) [Volume fraction] 33.7 % Low 35.0-47.0 [facility] Comment on above: Performed By: #### B MP3, HEMOG #### [facility] [address] [place] [address] Hemoglobin (Bld) [Mass/Vol] 11.8 g/dL Normal 11.7-16.0 [facility] Comment on above: Performed By: #### B MP3, HEMOG #### [place] [address] [address] [place], [place] MCH (RBC) [Entitic mass] 34.5 pg High 26.0-34.0 [facility] Comment on above: Performed By: #### B MP3, HEMOG #### [place] [address] [address] [place], [place] MCHC 35.0 % Normal 32.0-36.0 [facility] Comment on above: Performed By: #### B MP3, HEMOG #### [place] [address] [address] [place], [place] MCV (RBC) [Entitic vol] 98.6 fL High 79.0-98.0 [facility] Comment on above: Performed By: #### B MP3, HEMOG #### [place] [address] [address] [place], [place] Platelet mean volume (Bld) [Entitic vol] 6.9 fL Low 7.4-12.4 [facility] Comment on above: Result Comment: MPV is a calculated measurement using platelet volume ratio. Performed By: #### B MP3, HEMOG #### [place] [address] [address] [place], [place] Platelets (Bld) [#/Vol] 209 10*3/uL Normal 140-440 [facility] Comment on above: Performed By: #### B MP3, HEMOG #### [place] [address] [address] [place], [place] RBC (Bld) [#/Vol] 3.42 10*6/uL Low 3.80-5.20 [facility] Comment on above: Performed By: #### B MP3, HEMOG #### [place] [address] [address] [place], [place] WBC (Bld) [#/Vol] 4.3 10*3/uL Normal 3.6-10.7 [facility] Comment on above: Performed By: #### B MP3, HEMOG #### [address] [address] Op Noteon 09-24-2022 Op Note Operative Report Pre Op Diagnosis left Renal Calculus, greater than 2cm Post Op Diagnosis Same Operation left PCNL Surgeon Sarath Ramos MD P[employer] Offbearer Whitney Drains 6 X 26 JJ stent Catheter 16fr Specimen Calculi Meds Ancef 2 grams Indications Patient presents with large renal calculus. I explained in detail the procedure of PCNL. I discussed how access to the kidney is performed in radiology by the interventional radiologist. I discussed the surgical success largely depends on the ability to get good access and this is affected often by the stone size, location, patient body habitus, anatomy and other factors. I discussed the risks, benefits and alternatives to this procedure. I discussed possible complications which can include pain, bleeding, infection. Rarely a second intervention may be needed if sever complications develop. I compared this option to ESWL and ureteroscopy and explained why one options may be chosen over the others. Patient understands this and wishes to proceed forward. Surgical Procedure Patient was brought to the operating room. A thorough time out was performed. General endotracheal anesthesia was induced and all airways and lines were maintained by anesthesia. A gusman catheter was inserted in a sterile fashion. The patient was carefully moved to the prone position and pressure points padded. Patient was prepped and draped in a usual sterile fashion. SCD's were on and functional. Using the access obtained previously by interventional radiology on the left a sensor wire and a super-stiff glide wire were advanced to the level of the bladder under fluoroscopic visualization. Stone did measure 2.3cm A Nephromax balloon dilator was advanced over the stiff wire to the level of the stone under flouroscopy. It was inflated to 20 RY. After the fascia was appropriately dilated the sheath was advanced to the level of the stone. The balloon was deflated and removed. A nephroscope was inserted and on further inspection the stone was able to be visualized. Using a combination of the cyberwand and grasping forceps the stone was extracted in the entirety. On further inspection using flexible and rigid nephroscopes, no further stone was able to be visualized. Flouroscopy did confirm this. After clearing these stones, the decision was made to place a ureteral stent. A 6cm X 26cm JJ stent was advanced over the senor wire. This was done under direct vision and fluoroscopy. Once it was in position, both wires were removed. 1/4% Marcaine was instilled into the wound for analgesia. The deep layer was closed with 4-0 Monocryl and the skin further closed with 4-0 Monocryl. Patient was awaken from anesthesia and transferred to recovery room in stable condition. Normal [facility] Prothrombin Timeon INR 1.0 Normal 0.9-1.1 [facility] Comment on above: Result Comment: Jarrod mmended Anticoagulant Therapy: SEE BELOW ----- INR of 2.0 - 3.0 : - Prophylaxis of Venous Thrombosis (high-risk surgery) - Treatment of Venous Thrombosis - Treatment of Pulmonary Embolism (Includes tissue heart valves, Acute Myocardial Infarction to prevent systemic embolism, Valvular Heart Disease, and Atrial Fibrillation) ----- INR of 2.5 - 3.5 : - Mechanical Prosthetic Valves (high risk) - If oral anticoagulant therapy is used to prevent Myocardial Infarction Performed By: #### B MP3, HEMOG #### [facility] [address] [place] [address] PT Coag (PPP) [Time] 10.4 s Normal 9.0-12.0 [facility] Comment on above: Result Comment: . Performed By: #### B MP3, HEMOG #### [facility] [address] [place] [address] XA Special Angiography [facility] 09-24-2022 XA Special Angiography Procedure Patient Name: SURINDER RASHEED Special Procedures ACCESSION EXAM DATE/TIME PROCEDURE ORDERING PROVIDER [id number] 09/24/2022 10:04 EDT XA Special Angiography MD RAMOS JOSHUA B Procedure Reason For Exam (XA Special Angiography Procedure) Nephro-uteral stent placement; staghorn kidney stone Report EXAMINATION: Percutaneous left nephroureteral access for PCNL. CLINICAL INFORMATION: Nephrolithiasis. PCNL planned. Prior to the procedure, the details of the examination were explained to the patient. She understands the risks, alternative, and benefits and wishes to proceed. Informed written consent is obtained and placed in the chart. ANESTHESIA: MAC with anesthesia. Local anesthesia is maintained with lidocaine. FLUOROSCOPY USED: 2.3 minutes, 0 cine run(s), and 6 fluoro spot(s) captured. PROCEDURE: The patient was placed prone on the angiographic table. The left flank was prepped and draped in the usual fashion. All elements of sterile technique were applied: cap, mask, sterile gown, proper hand hygiene including sterile gloves, a large sterile sheet, and hospital-approved cutaneous antisepsis at the site. Using both ultrasound (with a sterile probe cover and sterile gel) and fluoroscopic guidance, the left renal collecting system was cannulated. A wire was directed past the large stone and into the ureter. The tract was dilated. A 10 Nauruan dual lumen catheter was placed into the distal ureter. There were no immediate complications. The patient tolerated the procedure without difficulty and was transferred to the recovery room in stable condition. FINDINGS: A large stone is identified in the renal pelvis. A smaller stone is present in the left lower pole. Both were traversed as described. Access was obtained past the stones and into the ureter. There is no significant hydronephrosis. IMPRESSION: 1. Access past the large left-sided renal stones for PCNL to follow. 2. Successful placement of a 10 Nauruan dual lumen catheter into the mid/distal left ureter. Special Procedures Report Report Dictated on Final Dictated: 09/24/2022 10:24 am Dictating Physician: MD SORIANO JEFFREY Signed Date and Time: 09/24/2022 10:26 am Signed by: MD SORIANO JEFFREY Transcribed Date and Time: 09/24/2022 10:24 Normal [facility] CULTURE URINEon 09-19-2022 CULTURE URINE 1 Organism Klebsiell a pneumoniae >100,000 CFU/ml 1 Organism Antibiotic Result Intrp Ampicillin(MEGGAN) R Cefazolin(MEGGAN) <= 4.0 S Ceftriaxone(MEGGAN) <= 1.0 S Cefepime(MEGGAN) <= 1.0 S Aztreonam(MEGGAN) <= 1.0 S Amoxicillin/Clavulani c Acid(MEGGAN) 8.0 S Ampicillin/Sulbactam( MEGGAN) 4.0 S Pip/Tazobactam(MEGGAN) <= 4.0 S Meropenem(MEGGAN) <= 0.25 S Ciprofloxacin(MEGGAN) <= 0.25 S Trimeth/Sulfa(MEGGAN) <= 20.0 S Nitrofurantoin(MEGGAN) 64.0 I Gentamicin(MEGGAN) <= 1.0 S Amikacin(MEGGAN) <= 2.0 S Normal [facility] Comment on above: Performed By: #### C UA2 #### [address] Basic Metabolic Panelon 10-2 Calcium [Mass/Vol] 9.7 mg/dL Normal 8.4-10.4 [facility] Comment on above: Performed By: #### C UA2 #### [address] Glucose [Mass/Vol] 98 mg/dL Normal 70-100 [facility] Comment on above: Performed By: #### C UA2 #### [address] Urea nitrogen [Mass/Vol] 13 mg/dL Normal 9-20 [facility] Comment on above: Performed By: #### C UA2 #### [address] Anion gap [Moles/Vol] 3 mmol/L Normal 3-13 [facility] Comment on above: Performed By: #### C UA2 #### [place] [address] [address] [place], [place] CO2 [Moles/Vol] 27 mmol/L Normal 22-30 [facility] Comment on above: Performed By: #### C UA2 #### [address] [address] [place], [place] Creatinine [Mass/Vol] 0.68 mg/dL Normal 0.52-1.25 [facility] Comment on above: Performed By: #### C UA2 #### [address] [address] [place], [place] GFR/1.73 sq M.predicted among blacks MDRD (S/P/Bld) [Vol rate/Area] mL/min/{1.73_m2} Normal >60 [facility] Comment on above: Performed By: #### C UA2 #### [address] GFR/1.73 sq M.predicted among non-blacks MDRD (S/P/Bld) [Vol rate/Area] 85.8 mL/min/{1.73_m2} Normal >60 [facility] Comment on above: Result Comment: KDIG O guidelines provide the following GFR categories: Stage GFR(ml/min/1.73 m2) Terms G1 >=90 Normal or high G2 60-89 Mildly decreased* G3a 45-59 Mildly to moderately decreased G3b 30-44 Moderately to severely decreased G4 15-29 Severely decreased G5 <15 Kidney failure *Relative to young adult level. In the absence of evidence of kidney damage, neither GFR category G1 nor G2 fulfill the criteria for CKD. The CKD-EPI equation is validated in individuals 18 years of age and older. Currently the best equation for estimating glomerular filtration rate (GFR) from serum creatinine in children is the Bedside [place] equation. It is less accurate in patients with extremes of muscle mass, restriction of dietary protein, ingestion of creatine, extra-renal metabolism of creatinine, or treatment with medications that affect renal tubular creatinine secretion. Performed By: #### C UA2 #### [address] Potassium [Moles/Vol] 4.0 mmol/L Normal 3.5-5.1 [facility] Comment on above: Performed By: #### C UA2 #### [address] [address] [place], [place] Chloride [Moles/Vol] 105 mmol/L Normal 98-107 [facility] Comment on above: Performed By: #### C UA2 #### [facility] [address] [place], [place] Sodium [Moles/Vol] 135 mmol/L Normal 135-145 [facility] Comment on above: Performed By: #### C UA2 #### [address] [address] [place], [place] Basic Metabolic Panel w/ Ref swapna to MGon 09-17-2022 Anion gap [Moles/Vol] 3 mmol/L 3 - 13 mmol/L [facility] Calcium [Mass/Vol] 9.7 mg/dL 8.4 - 10. 4 mg/dL [facility] Chloride [Moles/Vol] 105 mmol/L 98 - 10 7 mmol/L [facility] CO2 [Moles/Vol] 27 mmol/L 22 - 30 mmol/L [facility] Creatinine [Mass/Vol] 0.68 mg/dL 0.52 - 1.25 mg/dL [facility] eGFR mL/min 60 - P INF mL/min [facility] EGFR IF NonAfrican Tristanian 85.8 mL/min 60 - PINF mL/min [facility] Comment on above: KDIGO guidelines pro vide the following GFR categories: Stage GFR(ml/min/1.73 m2) Terms G1 >=90 Normal or high G2 60-89 Mildly decreased* G3a 45-59 Mildly to moderately decreased G3b 30-44 Moderately to severely decreased G4 15-29 Severely decreased G5 <15 Kidney failure *Relative to young adult level. In the absence of evidence of kidney damage, neither GFR category G1 nor G2 fulfill the criteria for CKD. The CKD-EPI equation is validated in individuals 18 years of age and older. Currently the best equation for estimating glomerular filtration rate (GFR) from serum creatinine in children is the Bedside [place]ille equation. It is less accurate in patients with extremes of muscle mass, restriction of dietary protein, ingestion of creatine, extra-renal metabolism of creatinine, or treatment with medications that affect renal tubular creatinine secretion. Glucose [Mass/Vol] 98 mg/dL 70 - 100 mg/dL [facility] Potassium [Moles/Vol] 4.0 mmol/L 3.5 - 5.1 mmol/L [facility] Sodium [Moles/Vol] 135 mmol/L 135 - 145 mmol/L [facility] Urea nitrogen (BldV) [Mass/Vol] 13 mg/dL 9 - 20 mg/dL [facility] Test Performed by [facility], [address] [place] [id number] [place] [address] LAB [facility] Complete Urinalysison 2021 Appearance (U) Turbid Abnormal Clear [facility] Comment on above: Result Comment: . Performed By: #### C UA2 #### [address] [place] [address] [address] [place], [place] Bacteria Many Abnormal Negative [facility] Comment on above: Result Comment: . Performed By: #### C UA2 #### [address] [place] [address] [place], [place] Bilirubin,Urine Negative Normal Negative [facility] Comment on above: Result Comment: . Performed By: #### C UA2 #### [place] [address] [address] [place], [place] Cast, Hyaline Negative Normal Negative [facility] Comment on above: Result Comment: . Performed By: #### C UA2 #### [address] [place] [address] [place], [place] Color (U) Light-Yellow Normal Lt. Yellow [facility] Comment on above: Result Comment: . Performed By: #### C UA2 #### [address] [place] [address] [place], [place] Glucose Ql (U) Normal Normal Normal (<70) [facility] Comment on above: Result Comment: . Performed By: #### C UA2 #### [place] [address] [address] [place], [place] Ketone,Urine Negative Normal Negative [facility] Comment on above: Result Comment: . Performed By: #### C UA2 #### [address] Leukocytes,Urine 500 Anamika/uL Abnormal Negative [facility] Comment on above: Result Comment: . Performed By: #### C UA2 #### [place] [address] [address] [place], [place] Mucous Threads Few Normal Negative [facility] Comment on above: Result Comment: . Performed By: #### C UA2 #### [place] [address] [address] [place], [place] Nitrites,Urine Positive Abnormal Negative [facility] Comment on above: Result Comment: . Performed By: #### C UA2 #### [place] [address] [address] [place], [place] Occult Blood,Urine 1.0 mg/dL Abnormal Negative [facility] Comment on above: Result Comment: . Performed By: #### C UA2 #### [place] [address] [address] [place], [place] pH,Urine 6.0 Normal 5.0-8.0 [facility] Comment on above: Result Comment: . Performed By: #### C UA2 #### [place] [address] [address] [place], [place] Protein (U) [Mass/Vol] 20 mg/dL Abnormal Negative [facility] Comment on above: Result Comment: . Performed By: #### C UA2 #### [place] [address] [address] [place], [place] RBC, Urine 6 - 10 Abnormal 0-2 [facility] Comment on above: Result Comment: . Performed By: #### C UA2 #### [place] [address] [address] [place], [place] Specific [place],Urine 1.006 Normal 1.005 - 1.030 [facility] Comment on above: Result Comment: . Performed By: #### C UA2 #### [place] [address] [address] [place], [place] Squamous Epithelial 0 - 2 Normal 3-5 [facility] Comment on above: Result Comment: . Performed By: #### C UA2 #### [place] [address] [address] [place], [place] Urobilinogen,Urine Normal Normal Normal (0-1) [facility] Comment on above: Result Comment: . Performed By: #### C UA2 #### [address] [address] [place] [address] WBC, Urine 51 - 100 Abnormal 0-5 [facility] Comment on above: Result Comment: . Performed By: #### C UA2 #### [address] [id number] Urinalysison 09-17-2022 Appearance (U) Turbid Abnormal Clear NA [facility] Comment on above: . Bacteria, UA Many Abnormal Negative /[HPF] [facility] Comment on above: . Bilirubin Urine Negative Negative mg/dL [facility] Comment on above: . Color (U) Light-Yellow Lt. Yellow NA [facility] Comment on above: . Glucose, Ur Normal Normal (<70) mg/dL [facility] Comment on above: . Hyaline Casts, UA Negative Negative /[LPF] [facility] Comment on above: . Interpretation and review of laboratory results Abnormal [facility] Ketones Ql (U) Negative Negative mg/dL [facility] Comment on above: . LEUKOCYTES, UA 500 Abnormal Negative Anamika/uL [facility] Comment on above: . Mucous Threads Few Negative /[LPF] [facility] Comment on above: . Nitrite, Urine Positive Abnormal Negative NA [facility] Comment on above: . Occult Blood,Urine 1.0 mg/dL Abnormal Negative [facility] Comment on above: . pH (U) 6.0 [pH] [facility] Comment on above: . Protein (U) [Mass/Vol] 20 mg/dL Abnormal Negative [facility] Comment on above: . RBC, UA /[HPF] Abnormal 0 - 2 /[HPF] [facility] Comment on above: . Specific [place], Urine 1.006 S [facility] Comment on above: . Squam Epithel, UA 0-2 3 - 5 /[HPF] [facility] Comment on above: . Urobilinogen, Urine Normal Normal ( 0-1) mg/dL [facility] Comment on above: . WBC, UA /[HPF] Abnormal 0 - 5 /[HPF] [facility] Comment on above: . Test Performed by [facility], [address] [place] [id number] [facility] GENTAMICIN:SUSC:PT:ISOLATE:O RDQN:MICon 08-31-2022 Gentamicin MEGGAN [Susc] >100,000 cfu/ml Klebsiella pneumoniae subsp ozaenae [facility] Work Phone: Gentamicin MEGGAN [Susc]on 10-0 Klebsiella pneumoniae subsp ozaenae Klebsiella pneumoniae subsp ozaenae [facility] Work Phone: No Panel Informationon 08-11 Culture Urine <10,000 cfu/ml. No Significant growth. Sensitivity not indicated. [facility] Work Phone: CR Abdomen APon 07-14-2022 CR Abdomen AP Patient Name: SURINDER RASHEED Diagnostic Radiology ACCESSION EXAM DATE/TIME PROCEDURE ORDERING PROVIDER [id number] 07/14/2022 12:13 EDT CR Abdomen AP MD RAMOS JOSHUA B CPT code 72635 Reason For Exam (CR Abdomen AP) Calculus of kidney Report ABDOMEN: CLINICAL INDICATION: Calculus of kidney. TECHNIQUE: Supine abdomen and pelvis COMPARISON: 03/18/2022 FINDINGS: Evaluation limited due to overlying bowel gas and stool. Again noted is a large left renal calculus measuring 2.3 x 1.7 cm. No overt right renal calculi. The bowel gas pattern in unremarkable. No abnormal soft tissue calcifications are noted. Degenerative changes of the imaged spine. IMPRESSION: Evaluation limited due to overlying bowel gas and stool. Again noted is a large left renal calculus measuring 2.3 x 1.7 cm. No overt right renal calculi. Report Dictated on Final Dictating Physician: MD VILLANUEVA KEVIN Signed Date and Time: 07/16/2022 11:57 am Signed by: MD VILLANUEVA KEVIN Transcribed Date and Time: 07/16/2022 11:58 Normal [facility] LABORATORYOrdered By: Shawn Jeffers on 07-06-2022 Albumin BCP dye [Mass/Vol] 3.6 G/dL Invalid Interpretation Code 3.4 - 4.8 G/dL AO ADM SS Albumin/Globulin [Mass ratio] 1.2 {ratio} Invalid Interpretation Code 1.1 - 2.5 ratio AO ADM SS ALP [Catalytic activity/Vol] 66 U/L Invalid Interpretation Code 40 - 135 U/L AO ADM SS ALT With P-5'-P [Catalytic activity/Vol] 18 U/L Invalid Interpretation Code 14 - 59 U/L AO ADM SS AST With P-5'-P [Catalytic activity/Vol] 23 U/L Invalid Interpretation Code 10 - 40 U/L AO ADM SS Bilirubin [Mass/Vol] 0.5 mg/dL Invalid Interpretation Code 0.2 - 1.0 mg/dL AO ADM SS Calcium [Mass/Vol] 9.4 mg/dL Invalid Interpretation Code 8.4 - 10.2 mg/dL AO ADM SS Chloride [Moles/Vol] 100 mmol/L Invalid Interpretation Code 98 - 107 mmol/L AO ADM SS CO2 [Moles/Vol] 28 mmol/L Invalid Interpretation Code 23 - 31 mmol/L AO ADM SS Creatinine [Mass/Vol] 0.82 mg/dL Invalid Interpretation Code 0.55 - 1.02 mg/dL AO ADM SS Electrolyte Balance 8.0 mEq/L Invalid Interpretation Code 4.0 - 15.0 mEq/L AO ADM SS Free T3 [Mass/Vol] 2.13 pg/mL Invalid Interpretation Code 2.30 - 4.00 pg/mL AO ADM SS Free T4 [Mass/Vol] 1.53 ng/dL Invalid Interpretation Code 0.76 - 1.46 ng/dL AO ADM SS Globulin 3.1 G/dL Invalid Interpretation Code AO ADM SS Glucose [Mass/Vol] 102 mg/dL Invalid Interpretation Code 83 - 110 mg/dL AO ADM SS Potassium [Moles/Vol] 4.1 mmol/L Invalid Interpretation Code 3.5 - 5.1 mmol/L AO ADM SS Protein [Mass/Vol] 6.7 G/dL Invalid Interpretation Code 6.4 - 8.2 G/dL AO ADM SS Sodium [Moles/Vol] 136 mmol/L Invalid Interpretation Code 136 - 145 mmol/L AO ADM SS TSH Qn 0.89 m[IU]/L Invalid Interpretation Code 0.36 - 3.74 mcIU/mL AO ADM SS Urea nitrogen [Mass/Vol] 15 mg/dL Invalid Interpretation Code 7 - 18 mg/dL AO ADM SS Urea nitrogen/Creatinine [Mass ratio] 18 ratio Invalid Interpretation Code 7 - 27 ratio AO ADM SS LABORATORYOrdered By: Alea Arriaza on 07-06-2022 Basophil, Absolute 0.0 103/mcL Invalid Interpretation Code 0.0 - 0.2 10^3/mcL AO Workflow SS Basophils/100 WBC (Bld) 1.0 % Invalid Interpretation Code 0.0 - 2.5 % AO Workflow SS Eosinophil, Absolute 0.1 103/mcL Invalid Interpretation Code 0.0 - 0.4 10^3/mcL AO Workflow SS Eosinophils/100 WBC (Bld) 2.0 % Invalid Interpretation Code 0.0 - 7.0 % AO Workflow SS Erythrocyte distribution width (RBC) [Ratio] 14.2 % Invalid Interpretation Code 11.5 - 14.5 % AO Workflow SS Hematocrit (Bld) [Volume fraction] 33.9 % Invalid Interpretation Code 37.0 - 47.0 % AO Workflow SS Hemoglobin (Bld) [Mass/Vol] 11.7 G/dL Invalid Interpretation Code 12.0 - 16.0 G/dL AO Workflow SS Lymphocyte, Absolute 1.9 103/mcL Invalid Interpretation Code 0.8 - 3.9 10^3/mcL AO Workflow SS Lymphocytes/100 WBC (Bld) 45.0 % Invalid Interpretation Code 10.0 - 50.0 % AO Workflow SS MCH (RBC) [Entitic mass] 32.7 pg Invalid Interpretation Code 27.0 - 31.2 pg AO Workflow SS MCHC 34.6 G/dL Invalid Interpretation Code 33.0 - 37.0 G/dL AO Workflow SS MCV (RBC) [Entitic vol] 94.6 fL Invalid Interpretation Code 80.0 - 94.0 fL AO Workflow SS Monocyte, Absolute 0.4 103/mcL Invalid Interpretation Code 0.2 - 1.0 10^3/mcL AO Workflow SS Monocytes/100 WBC (Bld) 9.1 % Invalid Interpretation Code 1.7 - 13.0 % AO Workflow SS Neutrophil, Absolute 1.8 103/mcL Invalid Interpretation Code 2.9 - 6.2 10^3/mcL AO Workflow SS Neutrophils/100 WBC (Bld) 42.9 % Invalid Interpretation Code 37.0 - 80.0 % AO Workflow SS Platelet mean volume (Bld) [Entitic vol] 7.5 fL Invalid Interpretation Code 7.4 - 10.4 fL AO Workflow SS Platelets (Bld) [#/Vol] 211 103/mcL Invalid Interpretation Code 130 - 400 10^3/mcL AO Workflow SS RBC (Bld) [#/Vol] 3.58 106/mcL Invalid Interpretation Code 4.20 - 5.40 10^6/mcL AO Workflow SS WBC 4.2 103/mcL Invalid Interpretation Code 4.6 - 10.8 10^3/mcL AO Workflow SS LABORATORYOrdered By: SYSTEM SYSTEM on 07-06-2022 Cobalamin (Vitamin B12) [Mass/Vol] 373 pg/mL Invalid Interpretation Code 211 - 911 pg/mL ADM SS Folate [Mass/Vol] 12.66 ng/mL Invalid Interpretation Code 5.38 - 24.00 ng/mL AH ADM SS GFR 83 ml/min/1.73sqm Invalid Interpretation Code AO Chemistry S GFR Non- 68 ml/min/1.73sqm Invalid Interpretation Code AO Chemistry S Monocyte distribution width Auto (Bld) [Entitic vol] Not Performed 1 *NA* (07/06/22 11:03 AM) Invalid Interpretation Code 0.00 - 20.00 AO Hematology S Comment on above: Result Comment: MDW testing performed only on adult ER patients between the ages of 18-89 years. CR Abdomen APon 03-18-2022 CR Abdomen AP Patient Name: SURINDER RASEHED Diagnostic Radiology ACCESSION EXAM DATE/TIME PROCEDURE ORDERING PROVIDER [id number] 03/18/2022 14:16 EDT CR Abdomen AP MD RAMOS JOSHUA B CPT code 73648 Reason For Exam (CR Abdomen AP) Calculus of kidney Report EXAM TYPE: CR Abdomen AP EXAM DATE AND TIME: 03/18/2022 2:16 PM EDT INDICATION: 72 years Female with history of known calculus COMPARISON: 03/13/2022 TECHNIQUE: AP supine radiograph of the abdomen and pelvis was obtained. FINDINGS: The bowel gas pattern is unremarkable. Limited evaluation for free air or air-fluid levels on supine-only imaging. Right double-J ureteral stent present. Limited evaluation for calculi due to overlying bowel gas, but with visualization of multiple left renal calculi including a large left renal calculus measuring 2.8 cm. Possible distal ureteral calculus on the right adjacent to the distal stent measuring 6 mm. Degenerative changes are seen in the visualized spine. The lung bases are not included in the field of view. IMPRESSION: Right double-J ureteral stent. Suspected distal right ureteral calculus. Multiple left renal calculi. Report Dictated on Final Dictating Physician: MD COLES NICHOLAS Signed Date and Time: 03/18/2022 2:51 pm Signed by: MD COLES NICHOLAS Transcribed Date and Time: 03/18/2022 2:52 [facility] Calculi Analysis(Stone)on Calculi Composition See Note [facility] Comment on above: Result Comment: Callaway calculi fragments composed primarily of: 20% calcium oxalate (monohydrate and dihydrate), and 80% calcium phosphate (hydroxy- and carbonate- apatite). White calculi fragments composed primarily of: 60% magnesium ammonium phosphate (struvite), and 40% calcium phosphate (hydroxy- and carbonate- apatite). INTERPRETIVE INFORMATION: Calculi (Stone) analysis Calculi are the products of physiological processes that yield crystalline compounds in a matrix of biological compounds and blood. Matrix components are not reported. The clinically significant crystalline components identified in calculi specimens are reported. Gross description may not be consistent with composition determined by FTIR analysis. Performed By: [facility] [address] [place] [id number] [employer] Kil[employer] Tender: Gayle Dolan MD Performed By: #### C ALCO #### The performing lab is in the report. Calculi Description See Note [facility] Comment on above: Result Comment: Spec imen consists of numerous callaway and white calculi fragments. Specimen was not received in the preferred dry state. The presence of liquid, blood, gel, or adhesive often delays analysis. The total weight is 2418 mg. Performed By: #### C ALCO #### The performing lab is in the report. Calculi Mass 2418 mg [facility] Comment on above: Performed By: #### C ALCO #### The performing lab is in the report. ANTONINOon 03-15-2022 CNOV Office Visit ([facility] ) SURINDER RASHEED ([id number]) 1950 F Date Time Provider Department 03/15/22 10:45 AM ALEIDA MITCHELL [facility] During your visit today, we recorded the following information about you: Temperature Pulse Respiration Blood pressure 98.5 degrees 85/minute 21/minute 98/80 Weight 72.6 kg Aleida Mitchell APRN.CNP 03/15/2022 11:44 AM Signed Wound Care - Keep the area clean and dry -Clean with soap and water . Apply mupirocin ointment 2 times a day. -Tylenol or Ibuprofen for discomfort -Observe area for signs of infection: redness, warmth, foul odor, drainage or increase in discomfort. Follow up with surgeon as directed Aleida Mitchell APRN.CNP 03/15/2022 12:12 PM Addendum Subjective The history is provided by the patient and a relative. No speech language pathologist travel was used. JACQUI Rasheed is a 72 year old female who presents today for CC of allergies reaction to dressing from kidney stone surgery last week. Patient had kidney stones removed last week at [facility] and had large dressing applied. Daughter went to remove today and throught it was ripping her skin. She has called surgeon's office and was instructed to come here for treatment. BP 98/80 Pulse 85 Temp 36.9 ?C (98.5 ?F) Resp 21 Wt 72.6 kg (160 lb) SpO2 98% Social History Tobacco Use - Smoking status: Never Smoker - Smokeless tobacco: Never Used Substance Use Topics - Alcohol use: Not on file - Drug use: Not on file No past medical history on file. I have confirmed and edited as necessary, the [facility] Review of Systems Constitutional: Negative for chills and fever. Musculoskeletal: Negative for joint pain and myalgias. Skin: Negative for itching and rash. Skin tear under dressing All other systems reviewed and are negative. Objective Physical Exam Vitals and nursing note reviewed. Pulmonary: Effort: Pulmonary effort is normal. Skin: General: Skin is warm and dry. Comments: Dressing removed cleanse area with soap and water, apply dry sterile dressing over incision. Apply mupirocin with non adherent dressing to blistered area. Neurological: Mental Status: She is alert and oriented to person, place, and time. Psychiatric: Mood and Affect: Affect normal. ASSESSMENT/PLAN: 1. Allergic reaction, initial encounter - ICD9: 995.3, ICD10: T78.40XA Appears to be allergic reaction with blistering to adhesive dressing Mupirocin to are as discussed. Daily wound care/management discussed see patient instructions Follow up with surgeon. I spent a total of 35 minutes on the date of the service which included preparing to see the patient, [id number] patient care, performing a medically appropriate examination, ordering medications, tests, or procedures and communicating results to the patient/family/caregi devin. Diagnosis and treatment plan were discussed and questions were answered to the patient's satisfaction. Pt acknowledged understanding of concepts and follow up plan. Specific signs and symptoms that would indicate the need for higher level of care were discussed in detail warranting prompt ER evaluation. Aleida Mitchell APRN.TOW DRIVER Referring Provider: SELF [[id number]] Allergies As of Date: 03/15/2022 Noted Allergy Reaction PREDNISONE 03/15/2022 2 - Rash Date Reviewed: 03/15/2022 Reviewed by: Della Villaseñor MA - Fully Assessed Reason for Visit: Acute Visit [896] Cmt: sore on back from glue from surgery x 3 days Primary Visit Diagnosis:Allergic reaction, initial encounter [T78.40XA] Order(s):mupirocin (BACTROBAN) 2 % ointmentApply 1 application to affected area three times daily for 10 days.Disp: 30 gRfl: 0 Prescriptions as of 03/15/2022 - acetaminophen (TYLENOL) 325 mg tablet Take by mouth. - atenolol (TENORMIN) 25 mg tablet Indications: evening - oxyCODONE-acetaminoph en (PERCOCET) 5-325 mg tablet Take 1 tablet by mouth. - tamsulosin (FLOMAX) 0.4 mg Take 0.4 mg by mouth. - losartan (COZAAR) 25 mg tablet Take 50 mg by mouth. - potassium chloride (K-TAB) 10 mEq tablet Take 10 mEq by mouth once daily. - ondansetron orally disintegrating (ZOFRAN ODT) 4 mg disintegrating tablet Take by mouth. - LORazepam (ATIVAN) 0.5 mg Take 0.5 mg by mouth. - amLODIPine (NORVASC) 2.5 mg tablet Take 2.5 mg by mouth. - levothyroxine (SYNTHROID) 112 mcg tablet TAKE 1 TABLET BY MOUTH EVERY DAY FOR 90 DAYS - pantoprazole DR (PROTONIX) 40 mg tablet Take 40 mg by mouth. - mupirocin (BACTROBAN) 2 % ointment Apply 1 application to affected area three times daily for 10 days. Problem List As Of Date: 03/15/2022 (None) Other instructions from your clinician: Wound Care - Keep the area clean and dry -Clean with soap and water . Apply mupirocin ointment 2 times a day. -Tylenol or Ibuprofen for discomfort -Observe area for signs of infection: redness, warmth, foul odor, drainage or increase in disco (more content not included)... Normal [facility] Basic Metabolic Panelon - Calcium [Mass/Vol] 8.9 mg/dL Normal 8.4-10.4 [facility] Comment on above: Performed By: #### B MP3, HEMOG #### [facility] [address] [place] [address] Anion gap [Moles/Vol] 6 mmol/L Normal 3-13 [facility] Comment on above: Performed By: #### B MP3, HEMOG #### [facility] [address] [place] [address] CO2 [Moles/Vol] 24 mmol/L Normal 22-30 [facility] Comment on above: Performed By: #### B MP3, HEMOG #### [facility] [address] [place] [address] Creatinine [Mass/Vol] 0.72 mg/dL Normal 0.52-1.25 [facility] Comment on above: Performed By: #### B MP3, HEMOG #### [facility] [address] [place] [address] GFR/1.73 sq M.predicted among blacks MDRD (S/P/Bld) [Vol rate/Area] mL/min/{1.73_m2} Normal >60 [facility] Comment on above: Performed By: #### B MP3, HEMOG #### [facility] [address] [place] [address] GFR/1.73 sq M.predicted among non-blacks MDRD (S/P/Bld) [Vol rate/Area] 82.4 mL/min/{1.73_m2} Normal >60 [facility] Comment on above: Result Comment: KDIG O guidelines provide the following GFR categories: Stage GFR(ml/min/1.73 m2) Terms G1 >=90 Normal or high G2 60-89 Mildly decreased* G3a 45-59 Mildly to moderately decreased G3b 30-44 Moderately to severely decreased G4 15-29 Severely decreased G5 <15 Kidney failure *Relative to young adult level. In the absence of evidence of kidney damage, neither GFR category G1 nor G2 fulfill the criteria for CKD. The CKD-EPI equation is validated in individuals 18 years of age and older. Currently the best equation for estimating glomerular filtration rate (GFR) from serum creatinine in children is the Bedside Neville equation. It is less accurate in patients with extremes of muscle mass, restriction of dietary protein, ingestion of creatine, extra-renal metabolism of creatinine, or treatment with medications that affect renal tubular creatinine secretion. Performed By: #### B MP3, HEMOG #### [place] [address] [place], [place] Glucose [Mass/Vol] 112 mg/dL High 70-100 [facility] Comment on above: Performed By: #### Myah MP3, HEMOG #### [address] Urea nitrogen [Mass/Vol] 14 mg/dL Normal 9-20 [facility] Comment on above: Performed By: #### B MP3, HEMOG #### [place] [address] [place], [place] Chloride [Moles/Vol] 98 mmol/L Normal 98-107 [facility] Comment on above: Performed By: #### B MP3, HEMOG #### [address] Potassium [Moles/Vol] 2.9 mmol/L Low 3.5-5.1 [facility] Comment on above: Performed By: #### B MP3, HEMOG #### [address] Sodium [Moles/Vol] 127 mmol/L Low 135-145 [facility] [employer] [facility] Comment on above: Performed By: #### B MP3, HEMOG #### [facility] [address] [place] [address] Anion gap [Moles/Vol] 6 mmol/L 3 - 13 mmol/L [facility] Work Phone: Calcium [Mass/Vol] 8.9 mg/dL 8.4 - 10. 4 mg/dL [facility] Work Phone: Chloride [Moles/Vol] 98 mmol/L 98 - 10 7 mmol/L [facility] Work Phone: CO2 [Moles/Vol] 24 mmol/L 22 - 30 mmol/L [facility] Work Phone: [phone] Creatinine [Mass/Vol] 0.72 mg/dL 0.52 - 1.25 mg/dL [facility] Work Phone: EGFR IF NonAfrican Tristanian 82.4 mL/min >60 [facility] Work Phone: Comment on above: KDIGO guidelines pro vide the following GFR categories: Stage GFR(ml/min/1.73 m2) Terms G1 >=90 Normal or high G2 60-89 Mildly decreased* G3a 45-59 Mildly to moderately decreased G3b 30-44 Moderately to severely decreased G4 15-29 Severely decreased G5 <15 Kidney failure *Relative to young adult level. In the absence of evidence of kidney damage, neither GFR category G1 nor G2 fulfill the criteria for CKD. The CKD-EPI equation is validated in individuals 18 years of age and older. Currently the best equation for estimating glomerular filtration rate (GFR) from serum creatinine in children is the Bedside Neville equation. It is less accurate in patients with extremes of muscle mass, restriction of dietary protein, ingestion of creatine, extra-renal metabolism of creatinine, or treatment with medications that affect renal tubular creatinine secretion. GFR/1.73 sq M.predicted among blacks MDRD (S/P/Bld) [Vol rate/Area] mL/min/{1.73_m2} >60 mL/min [facility] Work Phone: Glucose [Mass/Vol] 112 mg/dL High 70 - 100 mg/dL [facility] Work Phone: Interpretation and review of laboratory results Abnormal [employer] Work Phone: 1 Potassium [Moles/Vol] 2.9 mmol/L Low 3.5 - 5.1 mmol/L [facility] Work Phone: 1 Sodium [Moles/Vol] 127 mmol/L Low 135 - 145 mmol/L [employer] Work Phone: 1 Urea nitrogen (BldV) [Mass/Vol] 14 mg/dL 9 - 20 mg/dL [facility] Work Phone: 1 Test Performed by [employer] [address] [place] [id number] [facility]ITALBizAnyt[facility] Work Phone: 1 CBCon 03-14-2022 Hematocrit (Bld) [Volume fraction] 29.4 % Low 35.0 - 47.0 % [facility] Work Phone: Hemoglobin.gastrointest inal spec 1 Ql (Stl) 10.2 g/dL Low 11.7 - 16.0 g/dL [facility] Work Phone: 1 Interpretation and review of laboratory results Abnormal [facility] Work Phone: 1 MCH (RBC) [Entitic mass] 32.4 pg 26.0 - 34.0 pg [facility] Work Phone: MCHC (RBC) [Mass/Vol] 34.7 % 32.0 - 36.0 % [facility] Work Phone: MCV (RBC) [Entitic vol] 93.2 fL 79.0 - 98.0 fL [facility] Work Phone: Platelet distribution width (Bld) [Ratio] 14.3 % 11.5 - 14.5 % [facility] Work Phone: Platelet mean volume (Bld) [Entitic vol] 7.1 fL Low 7.4 - 10.4 fL [facility] Work Phone: Platelets (Bld) [#/Vol] 180 10*3/uL 140 - 440 10*3/uL [employer] Work Phone: RBC (Bld) [#/Vol] 3.15 10*6/uL Low 3.80 - 5.2 0 10*6/uL [facility] Work Phone: WBC (Bld) [#/Vol] 6.9 10*3/uL 3.6 - 10.7 10*3/uL [facility] Work Phone: Test Performed by [facility] [employer] [facility], [address] [place] [id number] [place] [address] - [facility] Work Phone: Hemogramon 03-14-2022 Erythrocyte distribution width (RBC) [Ratio] 14.3 % Normal 11.5-14.5 [facility] Comment on above: Performed By: #### B MP3, HEMOG #### [place] [address] [place], [place] Hematocrit (Bld) [Volume fraction] 29.4 % Low 35.0-47.0 [facility] Comment on above: Performed By: #### B MP3, HEMOG #### [address] Hemoglobin (Bld) [Mass/Vol] 10.2 g/dL Low 11.7-16.0 [facility] Comment on above: Performed By: #### B MP3, HEMOG #### [address] MCH (RBC) [Entitic mass] 32.4 pg Normal 26.0-34.0 [facility] Comment on above: Performed By: #### B MP3, HEMOG #### [place] [address] [place], [place] MCHC 34.7 % Normal 32.0-36.0 [facility] Comment on above: Performed By: #### B MP3, HEMOG #### [address] MCV (RBC) [Entitic vol] 93.2 fL Normal 79.0-98.0 [facility] Comment on above: Performed By: #### B MP3, HEMOG #### [address] Platelet mean volume (Bld) [Entitic vol] 7.1 fL Low 7.4-10.4 [facility] Comment on above: Performed By: #### B MP3, HEMOG #### [facility] [address], [place] Platelets (Bld) [#/Vol] 180 10*3/uL Normal 140-440 [facility] Comment on above: Performed By: #### B MP3, HEMOG #### [place] [address] [place], [place] RBC (Bld) [#/Vol] 3.15 10*6/uL Low 3.80-5.20 [facility] Comment on above: Performed By: #### B MP3, HEMOG #### [place] [address] [place], [place] WBC (Bld) [#/Vol] 6.9 10*3/uL Normal 3.6-10.7 [facility] Comment on above: Performed By: #### B MP3, HEMOG #### [place] [address] [place], [place] Basic Metabolic Panelon 04-1 Calcium [Mass/Vol] 8.6 mg/dL Normal 8.4-10.4 [facility] Comment on above: Performed By: #### H EVRENICEF BMP3 #### [place] [address] [place], [place] Glucose [Mass/Vol] 126 mg/dL High 70-100 [facility] Comment on above: Performed By: #### H EMDRamonita BMP3 #### [place] [address] [place], [place] Urea nitrogen [Mass/Vol] 11 mg/dL Normal 9-20 [facility] Comment on above: Performed By: #### H EMDF BMP3 #### [place] [address] [place], [place] Anion gap [Moles/Vol] 4 mmol/L Normal 3-13 [facility] Comment on above: Performed By: #### H ERICA BMP3 #### [address] CO2 [Moles/Vol] 23 mmol/L Normal 22-30 [facility] Comment on above: Performed By: #### H ERICA BMP3 #### [address] Creatinine [Mass/Vol] 0.75 mg/dL Normal 0.52-1.25 [facility] Comment on above: Performed By: #### H ERICA BMP3 #### [address] GFR/1.73 sq M.predicted among blacks MDRD (S/P/Bld) [Vol rate/Area] mL/min/{1.73_m2} Normal >60 [facility] Comment on above: Performed By: #### H ERICA BMP3 #### [address] GFR/1.73 sq M.predicted among non-blacks MDRD (S/P/Bld) [Vol rate/Area] 78.4 mL/min/{1.73_m2} Normal >60 [facility] Comment on above: Result Comment: KDIG O guidelines provide the following GFR categories: Stage GFR(ml/min/1.73 m2) Terms G1 >=90 Normal or high G2 60-89 Mildly decreased* G3a 45-59 Mildly to moderately decreased G3b 30-44 Moderately to severely decreased G4 15-29 Severely decreased G5 <15 Kidney failure *Relative to young adult level. In the absence of evidence of kidney damage, neither GFR category G1 nor G2 fulfill the criteria for CKD. The CKD-EPI equation is validated in individuals 18 years of age and older. Currently the best equation for estimating glomerular filtration rate (GFR) from serum creatinine in children is the Bedside Neville equation. It is less accurate in patients with extremes of muscle mass, restriction of dietary protein, ingestion of creatine, extra-renal metabolism of creatinine, or treatment with medications that affect renal tubular creatinine secretion. Performed By: #### H ERICA BMP3 #### [address] [address] Potassium [Moles/Vol] 3.2 mmol/L Low 3.5-5.1 [facility] Comment on above: Performed By: #### H LY MALDONADO3 #### [facility] [address], [place] Chloride [Moles/Vol] 104 mmol/L Normal 98-107 [facility] Comment on above: Performed By: #### H LY MALDONADO3 #### [facility] [address] [place], [place] Sodium [Moles/Vol] 130 mmol/L Low 135-145 [facility] Comment on above: Performed By: #### H LY MALDONADO3 #### [facility] [address] [place], [place] Anion gap [Moles/Vol] 4 mmol/L 3 - 13 mmol/L [facility] Calcium [Mass/Vol] 8.6 mg/dL 8.4 - 10. 4 mg/dL [facility] Chloride [Moles/Vol] 104 mmol/L 98 - 10 7 mmol/L [facility] CO2 [Moles/Vol] 23 mmol/L 22 - 30 mmol/L [facility] Creatinine [Mass/Vol] 0.75 mg/dL 0.52 - 1.25 mg/dL [facility] EGFR IF NonAfrican Tristanian 78.4 mL/min >60 [facility] Comment on above: KDIGO guidelines pro vide the following GFR categories: Stage GFR(ml/min/1.73 m2) Terms G1 >=90 Normal or high G2 60-89 Mildly decreased* G3a 45-59 Mildly to moderately decreased G3b 30-44 Moderately to severely decreased G4 15-29 Severely decreased G5 <15 Kidney failure *Relative to young adult level. In the absence of evidence of kidney damage, neither GFR category G1 nor G2 fulfill the criteria for CKD. The CKD-EPI equation is validated in individuals 18 years of age and older. Currently the best equation for estimating glomerular filtration rate (GFR) from serum creatinine in children is the Bedside Neville equation. It is less accurate in patients with extremes of muscle mass, restriction of dietary protein, ingestion of creatine, extra-renal metabolism of creatinine, or treatment with medications that affect renal tubular creatinine secretion. GFR/1.73 sq M.predicted among blacks MDRD (S/P/Bld) [Vol rate/Area] mL/min/{1.73_m2} >60 mL/min [facility] Glucose [Mass/Vol] 126 mg/dL High 70 - 100 mg/dL [facility] Interpretation and review of laboratory results Abnormal [facility] Potassium [Moles/Vol] 3.2 mmol/L Low 3.5 - 5.1 mmol/L [facility] Sodium [Moles/Vol] 130 mmol/L Low 135 - 145 mmol/L [facility] Urea nitrogen (BldV) [Mass/Vol] 11 mg/dL 9 - 20 mg/dL [facility] Test Performed by [facility], [address] [place] [id number] [place] [address] LAB [facility] CBC with Auto Differentialon 03-13-2022 Absolute Baso # 0.0 10*3/uL 0.0 - 0.2 10*3/uL [facility] Absolute Neut # 6.1 10*3/uL 1.8 - 7.0 10*3/uL [facility] Basophils/100 WBC (Bld) 0.4 % 0.0 - 2.0 % [facility] Eosinophils (Bld) [#/Vol] 0.0 10*3/uL 0.0 - 0.5 10*3/uL [facility] Eosinophils/100 WBC (Bld) 0.1 % Low 1.0 - 6.0 % [facility] Granulocytes/100 WBC (Bld) 85.0 % High 40.0 - 80.0 % [facility] Hematocrit (Bld) [Volume fraction] 33.3 % Low 35.0 - 47.0 % [facility] Hemoglobin.gastrointest inal spec 1 Ql (Stl) 11.5 g/dL Low 11.7 - 16.0 g/dL [facility] Interpretation and review of laboratory results Abnormal [facility] Lymphocytes (Bld) [#/Vol] 0.5 10*3/uL Low 1.0 - 4.3 10*3/uL [facility] Lymphocytes/100 WBC (Bld) 7.6 % Low 20.0 - 40.0 % [facility] MCH (RBC) [Entitic mass] 33.0 pg 26.0 - 34.0 pg [facility] MCHC (RBC) [Mass/Vol] 34.5 % 32.0 - 36.0 % [facility] MCV (RBC) [Entitic vol] 95.7 fL 79.0 - 98.0 fL [facility] Monocytes (Bld) [#/Vol] 0.5 10*3/uL 0.0 - 0.8 10*3/uL [facility] Monocytes/100 WBC (Bld) 6.9 % 2.0 - 10.0 % [facility] Platelet distribution width (Bld) [Ratio] 14.2 % 11.5 - 14.5 % [facility] Platelet mean volume (Bld) [Entitic vol] 7.5 fL 7.4 - 10.4 fL [facility] Platelets (Bld) [#/Vol] 203 10*3/uL 140 - 440 10*3/uL [facility] RBC (Bld) [#/Vol] 3.48 10*6/uL Low 3.80 - 5.2 0 10*6/uL [facility] WBC (Bld) [#/Vol] 7.1 10*3/uL 3.6 - 10.7 10*3/uL [facility] Test Performed by [id number] [place] [address] LAB [facility] Abdomen APon 03-13-2022 CR Abdomen AP Patient Name: SURINDER RASHEED Diagnostic Radiology ACCESSION EXAM DATE/TIME PROCEDURE ORDERING PROVIDER [id number] 03/13/2022 12:44 EDT CR Abdomen AP John MARACNO FABRICE H CPT code 52576 Reason For Exam (CR Abdomen AP) Renal stones s/p R PCNL and stent Report ABDOMEN: CLINICAL INDICATION: Renal stones s/p R PCNL and stent. TECHNIQUE: Supine abdomen and pelvis COMPARISON: None. IMPRESSION/FINDINGS: Bowel gas and stool overlying both kidneys limits evaluation for renal calculi. Right double-J ureteral stent in place. Probable left renal calculi. No overt right renal calculi. Atherosclerotic calcifications of the abdominal aorta. Degenerative changes of the imaged spine. Report Dictated on Final Dictated: 03/13/2022 12:55 pm Dictating Physician: MD VILLANUEVA KEVIN Signed Date and Time: 03/13/2022 12:57 pm Signed by: MD VILLANUEVA KEVIN Transcribed Date and Time: 03/13/2022 12:55 Normal [facility] Hemogram w/ Autodiffon 03-13 Abs Baso Cnt 0.0 10*3/uL Normal 0.0-0.[address] [facility] Comment on above: Performed By: #### C UA2 #### [facility] [address] [place] [address] Abs Neutrophile Cnt 6.1 10*3/uL Normal 1.8-7.0 [facility] Comment on above: Performed By: #### C UA2 #### [place] [address] [place] [address] Basophils/100 WBC (Bld) 0.4 % Normal 0.0-2.0 [facility] Comment on above: Performed By: #### C UA2 #### [place] [address] [place] [address] Eosinophils (Bld) [#/Vol] 0.0 10*3/uL Normal 0.0-0.5 [facility] Comment on above: Performed By: #### C UA2 #### [place] [address] [place], [place] Eosinophils/100 WBC (Bld) 0.1 % Low 1.0-6.0 [facility] Comment on above: Performed By: #### C UA2 #### [place] [address] [place], [place] Erythrocyte distribution width (RBC) [Ratio] 14.2 % Normal 11.5-14.5 [facility] Comment on above: Performed By: #### C UA2 #### [place] [address] [place], [place] Granulocytes/100 WBC (Bld) 85.0 % High 40.0-80.0 [facility] Comment on above: Performed By: #### C UA2 #### [place] [place] [address] Hematocrit (Bld) [Volume fraction] 33.3 % Low 35.0-47.0 [facility] Comment on above: Performed By: #### C UA2 #### [place] [address] [place], [place] Hemoglobin (Bld) [Mass/Vol] 11.5 g/dL Low 11.7-16.0 [facility] Comment on above: Performed By: #### C UA2 #### [facility] [address] [place], [place] Lymphocytes (Bld) [#/Vol] 0.5 10*3/uL Low 1.0-4.3 [facility] Comment on above: Performed By: #### C UA2 #### [facility] [address] [place], [place] Lymphocytes/100 WBC (Bld) 7.6 % Low 20.0-40.0 [facility] Comment on above: Performed By: #### C UA2 #### [place] [address] [place], [place] MCH (RBC) [Entitic mass] 33.0 pg Normal 26.0-34.0 [facility] Comment on above: Performed By: #### C UA2 #### [place] [address] [place], [place] MCHC 34.5 % Normal 32.0-36.0 [facility] Comment on above: Performed By: #### C UA2 #### [place] [address] [place], [place] MCV (RBC) [Entitic vol] 95.7 fL Normal 79.0-98.0 [facility] Comment on above: Performed By: #### C UA2 #### [place] [address] [place], [place] Monocytes (Bld) [#/Vol] 0.5 10*3/uL Normal 0.0-0.8 [facility] Comment on above: Performed By: #### C UA2 #### [place] [address] [place], [place] Monocytes/100 WBC (Bld) 6.9 % Normal 2.0-10.0 [facility] Comment on above: Performed By: #### C UA2 #### [place] [address] [place], [place] Platelet mean volume (Bld) [Entitic vol] 7.5 fL Normal 7.4-10.4 [facility] Comment on above: Performed By: #### C UA2 #### [address] [place] [address] [place], [place] Platelets (Bld) [#/Vol] 203 10*3/uL Normal 140-440 [facility] Comment on above: Performed By: #### C UA2 #### [place] [address] [place], [place] RBC (Bld) [#/Vol] 3.48 10*6/uL Low 3.80-5.20 [facility] Comment on above: Performed By: #### C UA2 #### [address] [place] [address] [place], [place] WBC (Bld) [#/Vol] 7.1 10*3/uL Normal 3.6-10.7 [facility] Comment on above: Performed By: #### C UA2 #### [place] [address] [place], [place] XR ABDOMEN (KUB) (SINGLE AP VIEW)on 03-13-2022 Patient Name: SURINDER RASHEED Diagnostic Radiology ACCESSION EXAM DATE/TIME PROCEDURE ORDERING PROVIDER [id number] 03/13/2022 12:44 EDT CR Abdomen AP John MARCANO FABRICE H CPT code 88038 Reason For Exam (CR Abdomen AP) Renal stones s/p R PCNL and stent Report ABDOMEN: CLINICAL INDICATION: Renal stones s/p R PCNL and stent. TECHNIQUE: Supine abdomen and pelvis COMPARISON: None. IMPRESSION/FINDINGS: Bowel gas and stool overlying both kidneys limits evaluation for renal calculi. Right double-J ureteral stent in place. Probable left renal calculi. No overt right renal calculi. Atherosclerotic calcifications of the abdominal aorta. Degenerative changes of the imaged spine. Report Dictated on --- Final --- Dictated: 03/13/2022 12:55 pm Dictating Physician: MD VILLANUEVA KEVIN Signed Date and Time: 03/13/2022 12:57 pm Signed by: MD VILLANUEVA KEVIN Transcribed Date and Time: 03/13/2022 12:55 [facility] RAD Elie Villanueva MD - 03/13/2022 Patient Name: SURINDER RASHEED Diagnostic Radiology ACCESSION EXAM DATE/TIME PROCEDURE ORDERING PROVIDER [id number] 03/13/2022 12:44 EDT CR Abdomen AP John MARCANO FABRICE H CPT code 83304 Reason For Exam (CR Abdomen AP) Renal stones s/p R PCNL and stent Report ABDOMEN: CLINICAL INDICATION: Renal stones s/p R PCNL and stent. TECHNIQUE: Supine abdomen and pelvis COMPARISON: None. IMPRESSION/FINDINGS: Bowel gas and stool overlying both kidneys limits evaluation for renal calculi. Right double-J ureteral stent in place. Probable left renal calculi. No overt right renal calculi. Atherosclerotic calcifications of the abdominal aorta. Degenerative changes of the imaged spine. Report Dictated on --- Final --- Dictated: 03/13/2022 12:55 pm Dictating Physician: MD VILLANUEVA KEVIN Signed Date and Time: 03/13/2022 12:57 pm Signed by: MD VILLANUEVA KEVIN Transcribed Date and Time: 03/13/2022 12:55 [facility] Work Phone: [facility] Work Phone: Radiology Study observation (narrative) [facility] Work Phone: Basic Metabolic Panelon 02-26 Calcium [Mass/Vol] 9.7 mg/dL Normal 8.4-10.4 [facility] Comment on above: Performed By: #### H OMAR BMP3 #### [address] [id number] Glucose [Mass/Vol] 102 mg/dL High 70-100 [facility] Comment on above: Performed By: #### H RAFAELG BMP3 #### [address] [address] [place] [address] Urea nitrogen [Mass/Vol] 10 mg/dL Normal 9-20 [facility] Comment on above: Performed By: #### H EMOG, BMP3 #### [facility] [address] [place], [place] Anion gap [Moles/Vol] 6 mmol/L Normal 3-13 [facility] Comment on above: Performed By: #### H EMOG, BMP3 #### [facility] [address] [place], [place] CO2 [Moles/Vol] 27 mmol/L Normal 22-30 [facility] Comment on above: Performed By: #### H EMOG, BMP3 #### [facility] [address] [place], [place] Creatinine [Mass/Vol] 0.62 mg/dL Normal 0.52-1.25 [facility] Comment on above: Performed By: #### H EMOG, BMP3 #### [facility] [address], [place] GFR/1.73 sq M.predicted among blacks MDRD (S/P/Bld) [Vol rate/Area] mL/min/{1.73_m2} Normal >60 [facility] Comment on above: Performed By: #### H EMOObdulia, BMP3 #### [facility] [address], [place] GFR/1.73 sq M.predicted among non-blacks MDRD (S/P/Bld) [Vol rate/Area] 88.7 mL/min/{1.73_m2} Normal >60 [facility] Comment on above: Result Comment: KDIG O guidelines provide the following GFR categories: Stage GFR(ml/min/1.73 m2) Terms G1 >=90 Normal or high G2 60-89 Mildly decreased* G3a 45-59 Mildly to moderately decreased G3b 30-44 Moderately to severely decreased G4 15-29 Severely decreased G5 <15 Kidney failure *Relative to young adult level. In the absence of evidence of kidney damage, neither GFR category G1 nor G2 fulfill the criteria for CKD. The CKD-EPI equation is validated in individuals 18 years of age and older. Currently the best equation for estimating glomerular filtration rate (GFR) from serum creatinine in children is the Bedside [place] equation. It is less accurate in patients with extremes of muscle mass, restriction of dietary protein, ingestion of creatine, extra-renal metabolism of creatinine, or treatment with medications that affect renal tubular creatinine secretion. Performed By: #### H PRAVEEN NELSON #### [facility] [address] [place] [address] Potassium [Moles/Vol] 3.3 mmol/L Low 3.5-5.1 [facility] Comment on above: Performed By: #### H PRAVEEN NELSON #### [facility] [address] [place], [place] Sodium [Moles/Vol] 138 mmol/L Normal 135-145 [facility] Comment on above: Performed By: #### H PRAVEEN NELSON #### [facility] [address] [place], [place] Chloride [Moles/Vol] 105 mmol/L Normal 98-107 [facility] Comment on above: Performed By: #### H PRAVEEN NELSON #### [facility] [address] [place], [place] Anion gap [Moles/Vol] 6 mmol/L 3 - 13 mmol/L [facility] Calcium [Mass/Vol] 9.7 mg/dL 8.4 - 10. 4 mg/dL [facility] Chloride [Moles/Vol] 105 mmol/L 98 - 10 7 mmol/L [facility] CO2 [Moles/Vol] 27 mmol/L 22 - 30 mmol/L [facility] Creatinine [Mass/Vol] 0.62 mg/dL 0.52 - 1.25 mg/dL [facility] EGFR IF NonAfrican Tristanian 88.7 mL/min >60 [facility] Comment on above: KDIGO guidelines pro vide the following GFR categories: Stage GFR(ml/min/1.73 m2) Terms G1 >=90 Normal or high G2 60-89 Mildly decreased* G3a 45-59 Mildly to moderately decreased G3b 30-44 Moderately to severely decreased G4 15-29 Severely decreased G5 <15 Kidney failure *Relative to young adult level. In the absence of evidence of kidney damage, neither GFR category G1 nor G2 fulfill the criteria for CKD. The CKD-EPI equation is validated in individuals 18 years of age and older. Currently the best equation for estimating glomerular filtration rate (GFR) from serum creatinine in children is the Bedside Neville equation. It is less accurate in patients with extremes of muscle mass, restriction of dietary protein, ingestion of creatine, extra-renal metabolism of creatinine, or treatment with medications that affect renal tubular creatinine secretion. GFR/1.73 sq M.predicted among blacks MDRD (S/P/Bld) [Vol rate/Area] mL/min/{1.73_m2} >60 mL/min [facility] Glucose [Mass/Vol] 102 mg/dL High 70 - 100 mg/dL [facility] Interpretation and review of laboratory results Abnormal [facility] Potassium [Moles/Vol] 3.3 mmol/L Low 3.5 - 5.1 mmol/L [facility] Sodium [Moles/Vol] 138 mmol/L 135 - 145 mmol/L [facility] Urea nitrogen (BldV) [Mass/Vol] 10 mg/dL 9 - 20 mg/dL [facility] Test Performed by [id number] [place] [address] LAB [facility] CBCon 03-12-2022 Hematocrit (Bld) [Volume fraction] 35.8 % 35.0 - 47.0 % [facility] Hemoglobin.gastrointest inal spec 1 Ql (Stl) 12.1 g/dL 11.7 - 16.0 g/dL [facility] Interpretation and review of laboratory results Abnormal [facility] MCH (RBC) [Entitic mass] 32.1 pg 26.0 - 34.0 pg [facility] MCHC (RBC) [Mass/Vol] 33.6 % 32.0 - 36.0 % [facility] MCV (RBC) [Entitic vol] 95.4 fL 79.0 - 98.0 fL [facility] Platelet distribution width (Bld) [Ratio] 14.3 % 11.5 - 14.5 % [facility] Platelet mean volume (Bld) [Entitic vol] 7.3 fL Low 7.4 - 10.4 fL [facility] Platelets (Bld) [#/Vol] 226 10*3/uL 140 - 440 10*3/uL [facility] RBC (Bld) [#/Vol] 3.76 10*6/uL Low 3.80 - 5.2 0 10*6/uL [facility] WBC (Bld) [#/Vol] 4.4 10*3/uL 3.6 - 10.7 10*3/uL [facility] Test Performed by [facility], [address] [place] [id number] [facility] Hemogramon 03-12-2022 Erythrocyte distribution width (RBC) [Ratio] 14.3 % Normal 11.5-14.5 [facility] Comment on above: Performed By: #### H OMAR BMP3 #### [address] [address] [place], [place] Hematocrit (Bld) [Volume fraction] 35.8 % Normal 35.0-47.0 [facility] Comment on above: Performed By: #### H OMAR BMP3 #### [address] Hemoglobin (Bld) [Mass/Vol] 12.1 g/dL Normal 11.7-16.0 [facility] Comment on above: Performed By: #### H OMAR BMP3 #### [address] MCH (RBC) [Entitic mass] 32.1 pg Normal 26.0-34.0 [facility] Comment on above: Performed By: #### H OMAR BMP3 #### [address] MCHC 33.6 % Normal 32.0-36.0 [facility] Comment on above: Performed By: #### H OMAR BMP3 #### [address] MCV (RBC) [Entitic vol] 95.4 fL Normal 79.0-98.0 [facility] Comment on above: Performed By: #### H OMAR BMP3 #### [address] Platelet mean volume (Bld) [Entitic vol] 7.3 fL Low 7.4-10.4 [facility] Comment on above: Performed By: #### H OMAR BMP3 #### [address] Platelets (Bld) [#/Vol] 226 10*3/uL Normal 140-440 [facility] Comment on above: Performed By: #### H LY NELSON3 #### [facility] [address], [place] RBC (Bld) [#/Vol] 3.76 10*6/uL Low 3.80-5.20 [facility] Comment on above: Performed By: #### H LY NELSON3 #### [facility] [address] [facility] [place] WBC (Bld) [#/Vol] 4.4 10*3/uL Normal 3.6-10.7 [facility] Comment on above: Performed By: #### H LY NELSON3 #### [facility] [address], [place] OPERATIVE REPORTon Ordered by an unspecified provider. [facility] Op Noteon 03-12-2022 Op Note Operative Report Pre Op Diagnosis right Renal Calculus, greater than 2cm Post Op Diagnosis Same Operation RIGHT PCNL Surgeon Sarath Ramos MD Pipe Smoking Machine Offbearer Live Marcano Drains 6 X 26 JJ stent Catheter 16fr Specimen Calculi Meds Ancef 2 grams Indications Patient presents with large renal calculus. I explained in detail the procedure of PCNL. I discussed how access to the kidney is performed in radiology by the interventional radiologist. I discussed the surgical success largely depends on the ability to get good access and this is affected often by the stone size, location, patient body habitus, anatomy and other factors. I discussed the risks, benefits and alternatives to this procedure. I discussed possible complications which can include pain, bleeding, infection. Rarely a second intervention may be needed if sever complications develop. I compared this option to ESWL and ureteroscopy and explained why one options may be chosen over the others. Patient understands this and wishes to proceed forward. Surgical Procedure Patient was brought to the operating room. A thorough time out was performed. General endotracheal anesthesia was induced and all airways and lines were maintained by anesthesia. A gusman catheter was inserted in a sterile fashion. The patient was carefully moved to the prone position and pressure points padded. Patient was prepped and draped in a usual sterile fashion. SCD's were on and functional. Using the access obtained previously by interventional radiology on the right a sensor wire and a super-stiff glide wire were advanced to the level of the bladder under fluoroscopic visualization. A Nephromax balloon dilator was advanced over the stiff wire to the level of the stone under flouroscopy. It was inflated to 20 RY. After the fascia was appropriately dilated the sheath was advanced to the level of the stone. The balloon was deflated and removed. A nephroscope was inserted and on further inspection the stone was able to be visualized. Using a combination of the cyberwand and grasping forceps the stone was extracted in the entirety. On further inspection using flexible and rigid nephroscopes, no further stone was able to be visualized. Flouroscopy did confirm this. After clearing these stones, the decision was made to place a ureteral stent. A 6cm X 26cm JJ stent was advanced over the senor wire. This was done under direct vision and fluoroscopy. Once it was in position, both wires were removed. 1/4% Marcaine was instilled into the wound for analgesia. The deep layer was closed with 4-0 Monocryl and the skin further closed with 4-0 Monocryl. Patient was awaken from anesthesia and transferred to recovery room in stable condition. Normal [facility] [employer] [facility] Prothrombin Timeon 2 INR 1.0 Normal 0.9-1.1 [facility] [employer] [facility] Comment on above: Result Comment: Jarrod mmended Anticoagulant Therapy: SEE BELOW ----- INR of 2.0 - 3.0 : - Prophylaxis of Venous Thrombosis (high-risk surgery) - Treatment of Venous Thrombosis - Treatment of Pulmonary Embolism (Includes tissue heart valves, Acute Myocardial Infarction to prevent systemic embolism, Valvular Heart Disease, and Atrial Fibrillation) ----- INR of 2.5 - 3.5 : - Mechanical Prosthetic Valves (high risk) - If oral anticoagulant therapy is used to prevent Myocardial Infarction Performed By: #### P T #### [facility] [employer] [address] [place] [id number] PT Coag (PPP) [Time] 11.1 s Normal 9.0-12.0 [facility] [employer] [facility] Comment on above: Result Comment: . Performed By: #### P T #### [facility] [employer] [address] [address] Protime-INRon 03-12-2022 INR Coag (Bld) [Relative time] 1.0 {INR} [facility] Comment on above: Recommended Anticoag ulant Therapy: SEE BELOW ----- INR of 2.0 - 3.0 : - Prophylaxis of Venous Thrombosis (high-risk surgery) - Treatment of Venous Thrombosis - Treatment of Pulmonary Embolism (Includes tissue heart valves, Acute Myocardial Infarction to prevent systemic embolism, Valvular Heart Disease, and Atrial Fibrillation) ----- INR of 2.5 - 3.5 : - Mechanical Prosthetic Valves (high risk) - If oral anticoagulant therapy is used to prevent Myocardial Infarction PT Coag (PPP) [Time] 11.1 s 9.0 - 12.0 s [facility] Comment on above: . Test Performed by [address] [address] [facility] Special treatments and proce dureson 03-12-2022 Patient Name: SURINDER RASHEED Special Procedures ACCESSION EXAM DATE/TIME PROCEDURE ORDERING PROVIDER [id number] 03/12/2022 11:15 EDT [facility] Special Angiography MD RAMOS JOSHUA B Procedure Reason For Exam ([facility] Special Angiography Procedure) right nephro-ureteral stent placement. right kidney stone Report CLINICAL HISTORY: 72-year-old female with right staghorn calculi presenting for nephroureterostomy tube placement prior to percutaneous lithotripsy. PROCEDURES: 1. Ultrasound and fluoroscopic guided placement of a new right percutaneous dual lumen nephroureterostomy catheter. 2. Antegrade nephrostogram. PHYSICIAN: Dr. Villanueva MEDICATIONS: Local lidocaine, deep sedation was administered by a sales representative meats from the department of anesthesiology. Please refer to documentation for additional medications administered. EBL: Minimal. CONTRAST: 25 mL Isovue-300 SPECIMEN SENT: None COMPLICATIONS: None immediate FLUOROSCOPY TIME: 2.7 minutes. ANGIOGRAPHIC RUNS: 0 FLUOROSCOPIC SPOT IMAGES: 0 Fluoroscopic saved images were obtained. These images do NOT add additional exposure to ionizing radiation and were captured electronically from the imaging chain. PROCEDURAL DETAILS: Prior to the procedure red rules were performed which included patient name, date of , and procedure type. All of the risk, benefits, and alternative treatments were explained to the patient and informed consent was obtained and documented. The patient was brought into the angiography suite and placed in supine position. Maximal sterile barrier technique was utilized. All elements of maximal sterile barrier technique were used including a hat, mask, sterile gown, sterile gloves, and a sterile drape. Appropriate hand hygiene using 2 percent chlorhexidine for cutaneous antisepsis was utilized. A sterile ultrasound probe cover and sterile ultrasound gel was utilized. The patient's right flank and indwelling catheter was prepped and draped in usual sterile fashion. Maximal sterile barrier technique was utilized. All elements of maximal sterile barrier technique were used including a hat, mask, sterile gown, sterile gloves, and a sterile Special Procedures Report drape. Appropriate hand hygiene using 2 percent chlorhexidine for cutaneous antisepsis was utilized. Using a sterile ultrasound probe cover and sterile ultrasound gel, the right kidney was interrogated with ultrasound. The inferior most lower pole calyx is not well visualized due to bowel gas artifact. The adjacent posterior lower pole calyx appears patent without calyceal calculi. A suitable site for dual lumen nephroureterostomy tube placement was identified in the interpolar posterior calyx with calyceal calculi. The overlying subcutaneous tissues were anesthetized using one percent lidocaine. Under direct ultrasound visualization, a 21-gauge micropuncture needle was advanced into a posterior interpolar peripheral calyx in the region of the interpolar calyceal calculus. Injection of contrast confirmed appropriate position through a posterior calyx. Following this, a 0.018 micropuncture wire was advanced into the renal collecting system. This was then upsized to a J-wire through an AccuStick set. Contrast injection showed intraluminal positioning within the renal pelvis. With the aid of a 4 Nauruan Berenstein catheter and Glidewire, access into the proximal ureter around a large staghorn calculus was gained, and the catheter was then advanced into the urinary bladder. A small amount of contrast was injected through the Berenstein catheter, confirming intraluminal placement. Exchange was then made for an Amplatz superstiff wire. The tract was dilated and a new 10 Nauruan dual lumen nephroureterostomy tube was advanced over the wire, with the tip in the urinary bladder, which was confirmed with contrast injection. The catheter was then secured to the patient's skin with 2-0 silk. The patient tolerated the procedure well. There were no immediate complications. FINDINGS: Limited ultrasound of the right kidney shows staghorn calculus with peripheral renal multiple calyx. The inferior most lower pole calyx is not well visualized due to bowel gas artifact. The adjacent posterior lower pole calyx appears patent without calyceal calculi. There is a interpolar posterior calyx with large calyceal calculus. Antegrade nephrostogram shows access within the peripheral interpolar calyx. There is successful placement of a new 10 Nauruan dual lumen percutaneous nephroureterostomy catheter via a posterior right interpolar calyx, with the tip in the (more content not included)... [facility] Elie Victoria MD - 03/12/2022 Patient Name: SURINDER RASHEED Special Procedures ACCESSION EXAM DATE/TIME PROCEDURE ORDERING PROVIDER [id number] 03/12/2022 11:15 EDT XA Special Angiography MD RAMOS JOSHUA B Procedure Reason For Exam ([facility] Special Angiography Procedure) right nephro-ureteral stent placement. right kidney stone Report CLINICAL HISTORY: 72-year-old female with right staghorn calculi presenting for nephroureterostomy tube placement prior to percutaneous lithotripsy. PROCEDURES: 1. Ultrasound and fluoroscopic guided placement of a new right percutaneous dual lumen nephroureterostomy catheter. 2. Antegrade nephrostogram. PHYSICIAN: Dr. Villanueva MEDICATIONS: Local lidocaine, deep sedation was administered by a sales representative meats from the department of anesthesiology. Please refer to documentation for additional medications administered. EBL: Minimal. CONTRAST: 25 mL Isovue-300 SPECIMEN SENT: None COMPLICATIONS: None immediate FLUOROSCOPY TIME: 2.7 minutes. ANGIOGRAPHIC RUNS: 0 FLUOROSCOPIC SPOT IMAGES: 0 Fluoroscopic saved images were obtained. These images do NOT add additional exposure to ionizing radiation and were captured electronically from the imaging chain. PROCEDURAL DETAILS: Prior to the procedure red rules were performed which included patient name, date of , and procedure type. All of the risk, benefits, and alternative treatments were explained to the patient and informed consent was obtained and documented. The patient was brought into the angiography suite and placed in supine position. Maximal sterile barrier technique was utilized. All elements of maximal sterile barrier technique were used including a hat, mask, sterile gown, sterile gloves, and a sterile drape. Appropriate hand hygiene using 2 percent chlorhexidine for cutaneous antisepsis was utilized. A sterile ultrasound probe cover and sterile ultrasound gel was utilized. The patient's right flank and indwelling catheter was prepped and draped in usual sterile fashion. Maximal sterile barrier technique was utilized. All elements of maximal sterile barrier technique were used including a hat, mask, sterile gown, sterile gloves, and a sterile Special Procedures Report drape. Appropriate hand hygiene using 2 percent chlorhexidine for cutaneous antisepsis was utilized. Using a sterile ultrasound probe cover and sterile ultrasound gel, the right kidney was interrogated with ultrasound. The inferior most lower pole calyx is not well visualized due to bowel gas artifact. The adjacent posterior lower pole calyx appears patent without calyceal calculi. A suitable site for dual lumen nephroureterostomy tube placement was identified in the interpolar posterior calyx with calyceal calculi. The overlying subcutaneous tissues were anesthetized using one percent lidocaine. Under direct ultrasound visualization, a 21-gauge micropuncture needle was advanced into a posterior interpolar peripheral calyx in the region of the interpolar calyceal calculus. Injection of contrast confirmed appropriate position through a posterior calyx. Following this, a 0.018 micropuncture wire was advanced into the renal collecting system. This was then upsized to a J-wire through an AccuStick set. Contrast injection showed intraluminal positioning within the renal pelvis. With the aid of a 4 Nauruan Berenstein catheter and Glidewire, access into the proximal ureter around a large staghorn calculus was gained, and the catheter was then advanced into the urinary bladder. A small amount of contrast was injected through the Berenstein catheter, confirming intraluminal placement. Exchange was then made for an Amplatz superstiff wire. The tract was dilated and a new 10 Nauruan dual lumen nephroureterostomy tube was advanced over the wire, with the tip in the urinary bladder, which was confirmed with contrast injection. The catheter was then secured to the patient's skin with 2-0 silk. The patient tolerated the procedure well. There were no immediate complications. FINDINGS: Limited ultrasound of the right kidney shows staghorn calculus with peripheral renal multiple calyx. The inferior most lower pole calyx is not well visualized due to bowel gas artifact. The adjacent posterior lower pole calyx appears patent without calyceal calculi. There is a interpolar posterior calyx with large calyceal calculus. Antegrade nephrostogram shows access within the peripheral interpolar calyx. There is successful placement of a new 10 Nauruan dual lumen percutaneous nephroureterostomy catheter via a posterior right interpolar calyx, with the tip in the urinary bladder. IMPRESSION: Successful placement of a new 10 Nauruan dual lumen nephroureterostomy catheter with the tip in the urinary (more content not included)... [facility] Work Phone: [facility] Work Phone: Radiology Study observation (narrative) [facility] Work Phone: [facility] Special Angiography Proce dureon 03-12-2022 XA Special Angiography Procedure Patient Name: SURINDER RASHEED Special Procedures ACCESSION EXAM DATE/TIME PROCEDURE ORDERING PROVIDER [id number] 03/12/2022 11:15 EDT XA Special Angiography MD RAMOS JOSHUA B Procedure Reason For Exam ([facility] Special Angiography Procedure) right nephro-ureteral stent placement. right kidney stone Report CLINICAL HISTORY: 72-year-old female with right staghorn calculi presenting for nephroureterostomy tube placement prior to percutaneous lithotripsy. PROCEDURES: 1. Ultrasound and fluoroscopic guided placement of a new right percutaneous dual lumen nephroureterostomy catheter. 2. Antegrade nephrostogram. PHYSICIAN: Dr. Villanueva MEDICATIONS: Local lidocaine, deep sedation was administered by a sales representative meats from the department of anesthesiology. Please refer to documentation for additional medications administered. EBL: Minimal. CONTRAST: 25 mL Isovue-300 SPECIMEN SENT: None COMPLICATIONS: None immediate FLUOROSCOPY TIME: 2.7 minutes. ANGIOGRAPHIC RUNS: 0 FLUOROSCOPIC SPOT IMAGES: 0 Fluoroscopic saved images were obtained. These images do NOT add additional exposure to ionizing radiation and were captured electronically from the imaging chain. PROCEDURAL DETAILS: Prior to the procedure red rules were performed which included patient name, date of , and procedure type. All of the risk, benefits, and alternative treatments were explained to the patient and informed consent was obtained and documented. The patient was brought into the angiography suite and placed in supine position. Maximal sterile barrier technique was utilized. All elements of maximal sterile barrier technique were used including a hat, mask, sterile gown, sterile gloves, and a sterile drape. Appropriate hand hygiene using 2 percent chlorhexidine for cutaneous antisepsis was utilized. A sterile ultrasound probe cover and sterile ultrasound gel was utilized. The patient's right flank and indwelling catheter was prepped and draped in usual sterile fashion. Maximal sterile barrier technique was utilized. All elements of maximal sterile barrier technique were used including a hat, mask, sterile gown, sterile gloves, and a sterile Special Procedures Report drape. Appropriate hand hygiene using 2 percent chlorhexidine for cutaneous antisepsis was utilized. Using a sterile ultrasound probe cover and sterile ultrasound gel, the right kidney was interrogated with ultrasound. The inferior most lower pole calyx is not well visualized due to bowel gas artifact. The adjacent posterior lower pole calyx appears patent without calyceal calculi. A suitable site for dual lumen nephroureterostomy tube placement was identified in the interpolar posterior calyx with calyceal calculi. The overlying subcutaneous tissues were anesthetized using one percent lidocaine. Under direct ultrasound visualization, a 21-gauge micropuncture needle was advanced into a posterior interpolar peripheral calyx in the region of the interpolar calyceal calculus. Injection of contrast confirmed appropriate position through a posterior calyx. Following this, a 0.018 micropuncture wire was advanced into the renal collecting system. This was then upsized to a J-wire through an AccuStick set. Contrast injection showed intraluminal positioning within the renal pelvis. With the aid of a 4 Nauruan Berenstein catheter and Glidewire, access into the proximal ureter around a large staghorn calculus was gained, and the catheter was then advanced into the urinary bladder. A small amount of contrast was injected through the Berenstein catheter, confirming intraluminal placement. Exchange was then made for an Amplatz superstiff wire. The tract was dilated and a new 10 Nauruan dual lumen nephroureterostomy tube was advanced over the wire, with the tip in the urinary bladder, which was confirmed with contrast injection. The catheter was then secured to the patient's skin with 2-0 silk. The patient tolerated the procedure well. There were no immediate complications. FINDINGS: Limited ultrasound of the right kidney shows staghorn calculus with peripheral renal multiple calyx. The inferior most lower pole calyx is not well visualized due to bowel gas artifact. The adjacent posterior lower pole calyx appears patent without calyceal calculi. There is a interpolar posterior calyx with large calyceal calculus. Antegrade nephrostogram shows access within the peripheral interpolar calyx. There is successful placement of a new 10 Nauruan dual lumen percutaneous nephroureterostomy catheter via a posterior right interpolar calyx, with the tip in the urinary bladder. IMPRESSION: Successful placement of a new 10 Nauruan dual lumen nephroureterostomy catheter with the tip in the urinary bladder via a right posterior interpolar renal calyx. Report Dictated on Workstation: (more content not included)... Normal [facility] Basic Metabolic Panelon 04-0 -2021 Anion gap [Moles/Vol] 10 mmol/L Normal 3-13 [facility] Comment on above: Performed By: #### H RONEL [id number] #### [facility] [address] [place] [address] Calcium [Mass/Vol] 9.8 mg/dL Normal 8.4-10.4 [facility] Comment on above: Performed By: #### H RONEL BMP3 #### [facility] [address] [place] [address] CO2 [Moles/Vol] 25 mmol/L Normal 22-30 [facility] Comment on above: Performed By: #### H RONEL BMP3 #### [address] [address] [place] [address] Glucose [Mass/Vol] 91 mg/dL Normal 70-100 [facility] Comment on above: Performed By: #### H ADAMCT BMP3 #### [facility] [address] [place] [address] Urea nitrogen [Mass/Vol] 14 mg/dL Normal 9-20 [facility] Comment on above: Performed By: #### H ADAMCT BMP3 #### [address] [address] [place] [address] Creatinine [Mass/Vol] 0.74 mg/dL Normal 0.52-1.25 [facility] Comment on above: Performed By: #### H ADAMCT BMP3 #### [address] [address] [place], [place] GFR/1.73 sq M.predicted among blacks MDRD (S/P/Bld) [Vol rate/Area] mL/min/{1.73_m2} Normal >60 [facility] Comment on above: Performed By: #### H GHCT, BMP3 #### [facility] [address], [place] GFR/1.73 sq M.predicted among non-blacks MDRD (S/P/Bld) [Vol rate/Area] 79.7 mL/min/{1.73_m2} Normal >60 [facility] Comment on above: Result Comment: KDIG O guidelines provide the following GFR categories: Stage GFR(ml/min/1.73 m2) Terms G1 >=90 Normal or high G2 60-89 Mildly decreased* G3a 45-59 Mildly to moderately decreased G3b 30-44 Moderately to severely decreased G4 15-29 Severely decreased G5 <15 Kidney failure *Relative to young adult level. In the absence of evidence of kidney damage, neither GFR category G1 nor G2 fulfill the criteria for CKD. The CKD-EPI equation is validated in individuals 18 years of age and older. Currently the best equation for estimating glomerular filtration rate (GFR) from serum creatinine in children is the [place] equation. It is less accurate in patients with extremes of muscle mass, restriction of dietary protein, ingestion of creatine, extra-renal metabolism of creatinine, or treatment with medications that affect renal tubular creatinine secretion. Performed By: #### H GHCT, BMP3 #### [facility] [address], [place] Potassium [Moles/Vol] 3.3 mmol/L Low 3.5-5.1 [facility] Comment on above: Performed By: #### H GHCT, BMP3 #### [facility] [address], [place] Chloride [Moles/Vol] 102 mmol/L Normal 98-107 [facility] Comment on above: Performed By: #### H GHCT, BMP3 #### [facility] [address], [place] Sodium [Moles/Vol] 137 mmol/L Normal 135-145 [facility] Comment on above: Performed By: #### H GHCT, BMP3 #### [facility] [employer] [facility] [address], [place] Hemoglobin AND Hematocriton 03-05-2022 Hematocrit (Bld) [Volume fraction] 37.6 % Normal 35.0-47.0 [facility] Comment on above: Performed By: #### H GHCT, BMP3 #### [facility] [address], [place] Hemoglobin (Bld) [Mass/Vol] 13.1 g/dL Normal 11.7-16.0 [facility] Comment on above: Performed By: #### H GHCT, BMP3 #### [facility] [employer] [facility] [address], [place] No Panel Informationon 02-18 Culture Urine 10,000 - 50,000 cfu/ml Multiple bacterial morphotypes present. Probable Contamination. Suggest recollection if clinically indicated. [facility] Work Phone: No Panel Informationon 01-28 Culture Urine 50,000 - 100,000 cfu/ml Multiple bacterial morphotypes present. Probable Contamination. Suggest recollection if clinically indicated. [facility] Work Phone: LABORATORYOrdered By: Shanell Burgos on 01-20-2022 Basophil, Absolute 0.00 103/mcL Invalid Interpretation Code 0.00 - 0.19 10^3/mcL AO Auto Heme SS Basophils/100 WBC (Bld) 0.7 % Invalid Interpretation Code 0.0 - 2.5 % AO Auto Heme SS Eosinophil, Absolute 0.10 103/mcL Invalid Interpretation Code 0.00 - 0.40 10^3/mcL AO Auto Heme SS Eosinophils/100 WBC (Bld) 1.1 % Invalid Interpretation Code 0.0 - 7.0 % AO Auto Heme SS Erythrocyte distribution width (RBC) [Ratio] 13.3 % Invalid Interpretation Code 11.5 - 14.5 % AO Auto Heme SS Hematocrit (Bld) [Volume fraction] 33.8 % Invalid Interpretation Code 37.0 - 47.0 % AO Auto Heme SS Hemoglobin (Bld) [Mass/Vol] 12.1 G/dL Invalid Interpretation Code 12.0 - 16.0 G/dL AO Auto Heme SS Lymphocyte, Absolute 1.60 103/mcL Invalid Interpretation Code 0.77 - 3.85 10^3/mcL AO Auto Heme SS Lymphocytes/100 WBC (Bld) 34.5 % Invalid Interpretation Code 10.0 - 50.0 % AO Auto Heme SS MCH (RBC) [Entitic mass] 32.9 pg Invalid Interpretation Code 27.0 - 31.2 pg AO Auto Heme SS MCHC (RBC) [Mass/Vol] 35.8 G/dL Invalid Interpretation Code 33.0 - 37.0 G/dL AO Auto Heme SS MCV (RBC) [Entitic vol] 91.9 fL Invalid Interpretation Code 80.0 - 94.0 fL AO Auto Heme SS Monocyte, Absolute 0.40 103/mcL Invalid Interpretation Code 0.15 - 1.00 10^3/mcL AO Auto Heme SS Monocytes/100 WBC (Bld) 8.5 % Invalid Interpretation Code 1.7 - 13.0 % AO Auto Heme SS Neutrophil, Absolute 2.60 103/mcL Invalid Interpretation Code 2.85 - 6.16 10^3/mcL AO Auto Heme SS Neutrophils/100 WBC (Bld) 55.2 % Invalid Interpretation Code 37.0 - 80.0 % AO Auto Heme SS Platelet mean volume (Bld) [Entitic vol] 8.2 fL Invalid Interpretation Code 7.4 - 10.4 fL AO Auto Heme SS Platelets (Bld) [#/Vol] 240 103/mcL Invalid Interpretation Code 130 - 400 10^3/mcL AO Auto Heme SS RBC (Bld) [#/Vol] 3.68 106/mcL Invalid Interpretation Code 4.20 - 5.40 10^6/mcL AO Auto Heme SS WBC (Bld) [#/Vol] 4.70 103/mcL Invalid Interpretation Code 4.60 - 10.80 10^3/mcL AO Auto Heme SS LABORATORYOrdered By: Chalino Osborne on 01-20-2022 Cholesterol [Mass/Vol] 368 mg/dL Invalid Interpretation Code 0 - 200 mg/dL AO ADM SS Cholesterol in HDL [Mass/Vol] 84 mg/dL Invalid Interpretation Code 40 - 60 mg/dL AO ADM SS Cholesterol in LDL [Mass/Vol] 265 mg/dL Invalid Interpretation Code 0 - 130 mg/dL AO ADM SS Free T3 [Mass/Vol] 2.11 pg/mL Invalid Interpretation Code 2.30 - 4.00 pg/mL AO ADM SS Free T4 [Mass/Vol] 2.09 ng/dL Invalid Interpretation Code 0.76 - 1.46 ng/dL AO ADM SS Iron [Mass/Vol] 76 ug/dL Invalid Interpretation Code 50 - 170 mcg/dL AO ADM SS Iron binding capacity [Mass/Vol] 299 mcg/dL Invalid Interpretation Code 250 - 450 mcg/dL AO ADM SS Iron Sat 25 1 Invalid Interpretation Code AO ADM SS Triglyceride [Mass/Vol] 97 mg/dL Invalid Interpretation Code 0 - 150 mg/dL AO ADM SS TSH Qn 0.31 m[IU]/L Invalid Interpretation Code 0.36 - 3.74 mcIU/mL AO ADM SS LABORATORYOrdered By: SYSTEM SYSTEM on 01-20-2022 Ferritin [Mass/Vol] 167.9 ng/mL Invalid Interpretation Code 8.0 - 252.0 ng/mL AH ADM SS No Panel Informationon 11-18 Culture Urine 50,000 - 100,000 cfu/ml Multiple bacterial morphotypes present. Probable Contamination. Suggest recollection if clinically indicated. [facility] Work Phone: No Panel Informationon 11-04 Culture Urine 10,000 - 50,000 cfu/ml Mixed growth consistent with normal urogenital clarisse. [facility] Work Phone: LABORATORYOrdered By: Alea Arriaza on 11-01-2021 Albumin BCP dye [Mass/Vol] 3.6 G/dL Invalid Interpretation Code 3.4 - 4.8 G/dL AO ADM SS Albumin/Globulin [Mass ratio] 1.1 {ratio} Invalid Interpretation Code 1.1 - 2.5 ratio AO ADM SS ALP [Catalytic activity/Vol] 66 U/L Invalid Interpretation Code 40 - 135 U/L AO ADM SS ALT With P-5'-P [Catalytic activity/Vol] 18 U/L Invalid Interpretation Code 14 - 59 U/L AO ADM SS Appearance (U) Clear (11/01/21 7:30 AM) Invalid Interpretation Code Clear AO Auto Urine SS AST With P-5'-P [Catalytic activity/Vol] 19 U/L Invalid Interpretation Code 10 - 40 U/L AO ADM SS Basophil, Absolute 0.10 103/mcL Invalid Interpretation Code 0.00 - 0.19 10^3/mcL AO Auto Heme SS Basophils/100 WBC (Bld) 1.4 % Invalid Interpretation Code 0.0 - 2.5 % AO Auto Heme SS Bilirubin [Mass/Vol] 0.8 mg/dL Invalid Interpretation Code 0.2 - 1.0 mg/dL AO ADM SS Bilirubin Ql (U) Negative (11/01/21 7:30 AM) Invalid Interpretation Code Negative AO Auto Urine SS Calcium [Mass/Vol] 9.2 mg/dL Invalid Interpretation Code 8.4 - 10.2 mg/dL AO ADM SS Chloride [Moles/Vol] 104 mmol/L Invalid Interpretation Code 98 - 107 mmol/L AO ADM SS CO2 [Moles/Vol] 30 mmol/L Invalid Interpretation Code 23 - 31 mmol/L AO ADM SS Color (U) Yellow (11/01/21 7:30 AM) Invalid Interpretation Code AO Auto Urine SS Creatinine [Mass/Vol] 0.67 mg/dL Invalid Interpretation Code 0.55 - 1.02 mg/dL AO ADM SS Electrolyte Balance 8.0 mEq/L Invalid Interpretation Code AO ADM SS Eosinophil, Absolute 0.20 103/mcL Invalid Interpretation Code 0.00 - 0.40 10^3/mcL AO Auto Heme SS Eosinophils/100 WBC (Bld) 3.5 % Invalid Interpretation Code 0.0 - 7.0 % AO Auto Heme SS Erythrocyte distribution width (RBC) [Ratio] 13.4 % Invalid Interpretation Code 11.5 - 14.5 % AO Auto Heme SS Globulin 3.4 G/dL Invalid Interpretation Code AO ADM SS Glucose [Mass/Vol] 113 mg/dL Invalid Interpretation Code 83 - 110 mg/dL AO ADM SS Glucose Test strip (U) [Mass/Vol] Negative Invalid Interpretation Code Negativemg/d L AO Auto Urine SS Hematocrit (Bld) [Volume fraction] 36.1 % Invalid Interpretation Code 37.0 - 47.0 % AO Auto Heme SS Hemoglobin (Bld) [Mass/Vol] 12.4 G/dL Invalid Interpretation Code 12.0 - 16.0 G/dL AO Auto Heme SS Hemoglobin Auto test strip (U) [Mass/Vol] Moderate *ABN* (11/01/21 7:30 AM) Invalid Interpretation Code Negative AO Auto Urine SS Ketones Ql (U) Negative Invalid Interpretation Code Negativemg/d L AO Auto Urine SS Lipase [Catalytic activity/Vol] 91 U/L Invalid Interpretation Code 73 - 393 U/L AO ADM SS Lymphocyte, Absolute 2.00 103/mcL Invalid Interpretation Code 0.77 - 3.85 10^3/mcL AO Auto Heme SS Lymphocytes/100 WBC (Bld) 45.1 % Invalid Interpretation Code 10.0 - 50.0 % AO Auto Heme SS MCH (RBC) [Entitic mass] 32.5 pg Invalid Interpretation Code 27.0 - 31.2 pg AO Auto Heme SS MCHC (RBC) [Mass/Vol] 34.5 G/dL Invalid Interpretation Code 33.0 - 37.0 G/dL AO Auto Heme SS MCV (RBC) [Entitic vol] 94.5 fL Invalid Interpretation Code 80.0 - 94.0 fL AO Auto Heme SS Monocyte, Absolute 0.40 103/mcL Invalid Interpretation Code 0.15 - 1.00 10^3/mcL AO Auto Heme SS Monocytes/100 WBC (Bld) 9.9 % Invalid Interpretation Code 1.7 - 13.0 % AO Auto Heme SS Neutrophil, Absolute 1.80 103/mcL Invalid Interpretation Code 2.85 - 6.16 10^3/mcL AO Auto Heme SS Neutrophils/100 WBC (Bld) 40.1 % Invalid Interpretation Code 37.0 - 80.0 % AO Auto Heme SS Platelet mean volume (Bld) [Entitic vol] 7.3 fL Invalid Interpretation Code 7.4 - 10.4 fL AO Auto Heme SS Platelets (Bld) [#/Vol] 246 103/mcL Invalid Interpretation Code 130 - 400 10^3/mcL AO Auto Heme SS Potassium [Moles/Vol] 3.4 mmol/L Invalid Interpretation Code 3.5 - 5.1 mmol/L AO ADM SS Protein [Mass/Vol] 7.0 G/dL Invalid Interpretation Code 6.4 - 8.2 G/dL AO ADM SS RBC (Bld) [#/Vol] 3.82 106/mcL Invalid Interpretation Code 4.20 - 5.40 10^6/mcL AO Auto Heme SS Sodium [Moles/Vol] 142 mmol/L Invalid Interpretation Code 136 - 145 mmol/L AO ADM SS UA Leuk Est Trace *ABN* (11/01/21 7:30 AM) Invalid Interpretation Code Negative AO Auto Urine SS UA Nitrite Negative (11/01/21 7:30 AM) Invalid Interpretation Code Negative AO Auto Urine SS UA pH 7.0 (11/01/21 7:30 AM) Invalid Interpretation Code 5.0 - 8.0 AO Auto Urine SS UA Protein Negative Invalid Interpretation Code Negativemg/d L AO Auto Urine SS UA RBC 0-5 /HPF Invalid Interpretation Code None Seen/HPF AO Auto Urine SS UA Spec Grav 1.015 (11/01/21 7:30 AM) Invalid Interpretation Code 1.015-1.025 AO Auto Urine SS UA Specimen Type Clean Catch (11/01/21 7:30 AM) Invalid Interpretation Code AO Auto Urine SS UA Squam Epithelial 5-10 /HPF Invalid Interpretation Code None Seen/HPF AO Auto Urine SS UA Urobilinogen 0.2 E.U./dL Invalid Interpretation Code 0.2-1.0E.U./ dL AO Auto Urine SS Urea nitrogen [Mass/Vol] 6 mg/dL Invalid Interpretation Code 7 - 18 mg/dL AO ADM SS Urea nitrogen/Creatinine [Mass ratio] 9 ratio Invalid Interpretation Code 7 - 27 ratio AO ADM SS WBC (Bld) [#/Vol] 4.40 103/mcL Invalid Interpretation Code 4.60 - 10.80 10^3/mcL AO Auto Heme SS WBC LM.HPF (Urine sed) [#/Area] 5-10 /HPF Invalid Interpretation Code None Seen/HPF AO Auto Urine SS LABORATORYOrdered By: SYSTEM SYSTEM on 11-01-2021 GFR 105 ml/min/1.73sqm Invalid Interpretation Code AO Chemistry S GFR Non- 86 ml/min/1.73sqm Invalid Interpretation Code AO Chemistry S No Panel Informationon 11-01 Clostridium diff PCR NEGATIVE. No tcdB gene DNA detected. Negative test results may occur from improper collection, handling or storage of specimen, technical error, or number of organisms below the analytical sensitivity of the test. [facility] Work Phone: Comment on above: As with all in vitro diagnostic tests, positive and negative predictive values are highly dependent on prevalence. The [place] 80[place]select C. difficile PCR Assay performance may vary depending on the prevalence and population tested. LABORATORYOrdered By: Magaile Contreras on 10-05-2021 Albumin BCP dye [Mass/Vol] 3.6 G/dL Invalid Interpretation Code 3.4 - 4.8 G/dL AO ADM SS Calcium [Mass/Vol] 9.3 mg/dL Invalid Interpretation Code 8.4 - 10.2 mg/dL AO ADM SS Chloride [Moles/Vol] 104 mmol/L Invalid Interpretation Code 98 - 107 mmol/L AO ADM SS CO2 [Moles/Vol] 26 mmol/L Invalid Interpretation Code 23 - 31 mmol/L AO ADM SS Creatinine [Mass/Vol] 0.66 mg/dL Invalid Interpretation Code 0.55 - 1.02 mg/dL AO ADM SS Electrolyte Balance 9.0 mEq/L Invalid Interpretation Code AO ADM SS Glucose [Mass/Vol] 96 mg/dL Invalid Interpretation Code 83 - 110 mg/dL AO ADM SS Potassium [Moles/Vol] 4.0 mmol/L Invalid Interpretation Code 3.5 - 5.1 mmol/L AO ADM SS Sodium [Moles/Vol] 139 mmol/L Invalid Interpretation Code 136 - 145 mmol/L AO ADM SS Urea nitrogen [Mass/Vol] 13 mg/dL Invalid Interpretation Code 7 - 18 mg/dL AO ADM SS Urea nitrogen/Creatinine [Mass ratio] 20 ratio Invalid Interpretation Code 7 - 27 ratio AO ADM SS LABORATORYOrdered By: Shawn Jeffers on 10-05-2021 Basophil, Absolute 0.00 103/mcL Invalid Interpretation Code 0.00 - 0.19 10^3/mcL AO Auto Heme SS Basophils/100 WBC (Bld) 0.8 % Invalid Interpretation Code 0.0 - 2.5 % AO Auto Heme SS Eosinophil, Absolute 0.10 103/mcL Invalid Interpretation Code 0.00 - 0.40 10^3/mcL AO Auto Heme SS Eosinophils/100 WBC (Bld) 2.4 % Invalid Interpretation Code 0.0 - 7.0 % AO Auto Heme SS Erythrocyte distribution width (RBC) [Ratio] 13.8 % Invalid Interpretation Code 11.5 - 14.5 % AO Auto Heme SS Hematocrit (Bld) [Volume fraction] 33.2 % Invalid Interpretation Code 37.0 - 47.0 % AO Auto Heme SS Hemoglobin (Bld) [Mass/Vol] 11.8 G/dL Invalid Interpretation Code 12.0 - 16.0 G/dL AO Auto Heme SS Lymphocyte, Absolute 1.40 103/mcL Invalid Interpretation Code 0.77 - 3.85 10^3/mcL AO Auto Heme SS Lymphocytes/100 WBC (Bld) 31.7 % Invalid Interpretation Code 10.0 - 50.0 % AO Auto Heme SS MCH (RBC) [Entitic mass] 33.3 pg Invalid Interpretation Code 27.0 - 31.2 pg AO Auto Heme SS MCHC (RBC) [Mass/Vol] 35.6 G/dL Invalid Interpretation Code 33.0 - 37.0 G/dL AO Auto Heme SS MCV (RBC) [Entitic vol] 93.5 fL Invalid Interpretation Code 80.0 - 94.0 fL AO Auto Heme SS Monocyte, Absolute 0.40 103/mcL Invalid Interpretation Code 0.15 - 1.00 10^3/mcL AO Auto Heme SS Monocytes/100 WBC (Bld) 8.6 % Invalid Interpretation Code 1.7 - 13.0 % AO Auto Heme SS Neutrophil, Absolute 2.50 103/mcL Invalid Interpretation Code 2.85 - 6.16 10^3/mcL AO Auto Heme SS Neutrophils/100 WBC (Bld) 56.5 % Invalid Interpretation Code 37.0 - 80.0 % AO Auto Heme SS Platelet mean volume (Bld) [Entitic vol] 7.5 fL Invalid Interpretation Code 7.4 - 10.4 fL AO Auto Heme SS Platelets (Bld) [#/Vol] 230 103/mcL Invalid Interpretation Code 130 - 400 10^3/mcL AO Auto Heme SS RBC (Bld) [#/Vol] 3.55 106/mcL Invalid Interpretation Code 4.20 - 5.40 10^6/mcL AO Auto Heme SS WBC (Bld) [#/Vol] 4.50 103/mcL Invalid Interpretation Code 4.60 - 10.80 10^3/mcL AO Auto Heme SS LABORATORYOrdered By: SYSTEM SYSTEM on 10-05-2021 GFR 106 ml/min/1.73sqm Invalid Interpretation Code AO Chemistry S GFR Non- 88 ml/min/1.73sqm Invalid Interpretation Code AO Chemistry S LABORATORYOrdered By: Magalie Contreras on 09-16-2021 Albumin BCP dye [Mass/Vol] 3.6 G/dL Invalid Interpretation Code 3.4 - 4.8 G/dL AO ADM SS Albumin/Globulin [Mass ratio] 1.1 {ratio} Invalid Interpretation Code 1.1 - 2.5 ratio AO ADM SS ALP [Catalytic activity/Vol] 74 U/L Invalid Interpretation Code 40 - 135 U/L AO ADM SS ALT With P-5'-P [Catalytic activity/Vol] 18 U/L Invalid Interpretation Code 14 - 59 U/L AO ADM SS AST With P-5'-P [Catalytic activity/Vol] 19 U/L Invalid Interpretation Code 10 - 40 U/L AO ADM SS Bilirubin [Mass/Vol] 0.8 mg/dL Invalid Interpretation Code 0.2 - 1.0 mg/dL AO ADM SS Calcium [Mass/Vol] 9.2 mg/dL Invalid Interpretation Code 8.4 - 10.2 mg/dL AO ADM SS Chloride [Moles/Vol] 103 mmol/L Invalid Interpretation Code 98 - 107 mmol/L AO ADM SS CO2 [Moles/Vol] 27 mmol/L Invalid Interpretation Code 23 - 31 mmol/L AO ADM SS Creatinine [Mass/Vol] 0.76 mg/dL Invalid Interpretation Code 0.55 - 1.02 mg/dL AO ADM SS Electrolyte Balance 9.0 mEq/L Invalid Interpretation Code AO ADM SS Globulin 3.3 G/dL Invalid Interpretation Code AO ADM SS Glucose [Mass/Vol] 94 mg/dL Invalid Interpretation Code 83 - 110 mg/dL AO ADM SS Magnesium [Mass/Vol] 2.0 mg/dL Invalid Interpretation Code 1.8 - 2.4 mg/dL AO ADM SS Potassium [Moles/Vol] 3.6 mmol/L Invalid Interpretation Code 3.5 - 5.1 mmol/L AO ADM SS Protein [Mass/Vol] 6.9 G/dL Invalid Interpretation Code 6.4 - 8.2 G/dL AO ADM SS Sodium [Moles/Vol] 139 mmol/L Invalid Interpretation Code 136 - 145 mmol/L AO ADM SS Urea nitrogen [Mass/Vol] 7 mg/dL Invalid Interpretation Code 7 - 18 mg/dL AO ADM SS Urea nitrogen/Creatinine [Mass ratio] 9 ratio Invalid Interpretation Code 7 - 27 ratio AO ADM SS LABORATORYOrdered By: Shawn Jeffers on 09-16-2021 Basophil, Absolute 0.00 103/mcL Invalid Interpretation Code 0.00 - 0.19 10^3/mcL AO Auto Heme SS Basophils/100 WBC (Bld) 0.7 % Invalid Interpretation Code 0.0 - 2.5 % AO Auto Heme SS Eosinophil, Absolute 0.10 103/mcL Invalid Interpretation Code 0.00 - 0.40 10^3/mcL AO Auto Heme SS Eosinophils/100 WBC (Bld) 1.4 % Invalid Interpretation Code 0.0 - 7.0 % AO Auto Heme SS Erythrocyte distribution width (RBC) [Ratio] 13.3 % Invalid Interpretation Code 11.5 - 14.5 % AO Auto Heme SS Hematocrit (Bld) [Volume fraction] 35.4 % Invalid Interpretation Code 37.0 - 47.0 % AO Auto Heme SS Hemoglobin (Bld) [Mass/Vol] 12.4 G/dL Invalid Interpretation Code 12.0 - 16.0 G/dL AO Auto Heme SS Lymphocyte, Absolute 1.60 103/mcL Invalid Interpretation Code 0.77 - 3.85 10^3/mcL AO Auto Heme SS Lymphocytes/100 WBC (Bld) 33.6 % Invalid Interpretation Code 10.0 - 50.0 % AO Auto Heme SS MCH (RBC) [Entitic mass] 33.3 pg Invalid Interpretation Code 27.0 - 31.2 pg AO Auto Heme SS MCHC (RBC) [Mass/Vol] 35.1 G/dL Invalid Interpretation Code 33.0 - 37.0 G/dL AO Auto Heme SS MCV (RBC) [Entitic vol] 94.9 fL Invalid Interpretation Code 80.0 - 94.0 fL AO Auto Heme SS Monocyte, Absolute 0.40 103/mcL Invalid Interpretation Code 0.15 - 1.00 10^3/mcL AO Auto Heme SS Monocytes/100 WBC (Bld) 7.9 % Invalid Interpretation Code 1.7 - 13.0 % AO Auto Heme SS Neutrophil, Absolute 2.70 103/mcL Invalid Interpretation Code 2.85 - 6.16 10^3/mcL AO Auto Heme SS Neutrophils/100 WBC (Bld) 56.4 % Invalid Interpretation Code 37.0 - 80.0 % AO Auto Heme SS Platelet mean volume (Bld) [Entitic vol] 7.3 fL Invalid Interpretation Code 7.4 - 10.4 fL AO Auto Heme SS Platelets (Bld) [#/Vol] 252 103/mcL Invalid Interpretation Code 130 - 400 10^3/mcL AO Auto Heme SS RBC (Bld) [#/Vol] 3.74 106/mcL Invalid Interpretation Code 4.20 - 5.40 10^6/mcL AO Auto Heme SS WBC (Bld) [#/Vol] 4.70 103/mcL Invalid Interpretation Code 4.60 - 10.80 10^3/mcL AO Auto Heme SS LABORATORYOrdered By: SYSTEM SYSTEM on 09-16-2021 GFR 90 ml/min/1.73sqm Invalid Interpretation Code AO Chemistry S GFR Non- 75 ml/min/1.73sqm Invalid Interpretation Code AO Chemistry S Vital Signs Date Time Vital Sign Value Performing Clinician Facility 03-06-2025 09:26-0400 Body height 162.6 cm Shaun Eastman MD Work Phone: [facility] [employer] 03-06-2025 09:26-0400 Body mass index (BMI) [Ratio] 29.7 kg/m2 Shaun Eastman MD Work Phone: [facility] [employer] 03-06-2025 09:26-0400 Body weight 78.47 kg Shaun Eastman MD Work Phone: [facility] [employer] 03-06-2025 09:26-0400 Diastolic blood pressure 71 mm[Hg] Shaun Eastman MD Work Phone: [facility] [employer] 03-06-2025 09:26-0400 Heart rate 74 /min Shaun Eastman MD Work Phone: [facility] [employer] 03-06-2025 09:26-0400 Systolic blood pressure 113 mm[Hg] Shaun Eastman MD Work Phone: [facility] [employer] 02-19-2025 15:45-0400 Diastolic blood pressure 73 mm[Hg] Sarath Ramos MD Work Phone: [facility] [employer] 02-19-2025 15:45-0400 Heart rate 84 /min Sarath Ramos MD Work Phone: [facility] [employer] 02-19-2025 15:45-0400 Respiratory rate 16 /min Sarath Ramos MD Work Phone: [facility] [employer] 02-19-2025 15:45-0400 SaO2% (BldA) [Mass fraction] 94 % Sarath Ramos MD Work Phone: [facility] [employer] 02-19-2025 15:45-0400 Systolic blood pressure 109 mm[Hg] Sarath Ramos MD Work Phone: [facility] [employer] 02-19-2025 15:05-0400 Body temperature 98.91 [degF] Sarath Ramos MD Work Phone: [facility] [employer] 02-07-2025 11:08-0400 Body height 162.6 cm Kiara Wayne PA-C Work Phone: [facility] 02-07-2025 11:08-0400 Body mass index (BMI) [Ratio] 24.03 kg/m2 Kiara Whitevis PA-C Work Phone: [facility] 02-07-2025 11:08-0400 Body weight 63.5 kg Kiara Wayne PA-C Work Phone: [facility] 02-07-2025 11:08-0400 Diastolic blood pressure 68 mm[Hg] Kiara Whitevis PA-C Work Phone: [facility] 02-07-2025 11:08-0400 Heart rate 72 /min Kiara Wayne PA-C Work Phone: [facility] 02-07-2025 11:08-0400 Systolic blood pressure 130 mm[Hg] Kiara Whitevis PA-C Work Phone: [facility] 12-28-2024 14:37-0500 Body height 162.[address] Nay Greenwood MD [facility] 12-28-2024 14:37-0500 Body mass index (BMI) [Ratio] 30.1 kg/m2 Dr. Nay Greenwood MD [facility] 12-28-2024 14:37-0500 Body temperature 97.8 [degF] Dr. Nay Greenwood MD [facility] 12-28-2024 14:37-0500 Body weight 79.[address] Nay Greenwood MD [facility] 12-28-2024 14:37-0500 Diastolic blood pressure 91 mm[Hg] Dr. Nay Greenwood MD [facility] 12-28-2024 14:37-0500 Heart rate 74 /min Dr. Nay Greenwood MD [facility] 12-28-2024 14:37-0500 Respiratory rate 16 /min Dr. Nay Greenwood MD [facility] 12-28-2024 14:37-0500 SaO2% (BldA) [Mass fraction] 98 % Dr. Nay Greenwood MD [facility] 12-28-2024 14:37-0500 Systolic blood pressure 132 mm[Hg] Dr. Nay Greenwood MD [facility] 02-14-2024 10:48-0400 Body height 161.3 cm Sarath Ramos MD Work Phone: [facility] [employer] 02-14-2024 10:48-0400 Body mass index (BMI) [Ratio] 23.54 kg/m2 Sarath Ramos MD Work Phone: [facility] [employer] 02-14-2024 10:48-0400 Body weight 61.24 kg Sarath Ramos MD Work Phone: [facility] [employer] 01-06-2024 09:30-0500 Body temperature 97.7 [degF] Sarath Ramos MD Work Phone: [facility] [employer] 01-06-2024 09:30-0500 Diastolic blood pressure 79 mm[Hg] Sarath Ramos MD Work Phone: [facility] 01-06-2024 09:30-0500 Heart rate 66 /min Sarath Ramos MD Work Phone: [facility] [facility] 01-06-2024 09:30-0500 Respiratory rate 18 /min Sarath Ramos MD Work Phone: [facility] 01-06-2024 09:30-0500 SaO2% (BldA) [Mass fraction] 96 % Sarath Ramos MD Work Phone: [facility] 01-06-2024 09:30-0500 Systolic blood pressure 134 mm[Hg] Sarath Ramos MD Work Phone: [facility] [employer] 01-06-2024 05:51-0500 Body height 160 cm Sarath Ramos MD Work Phone: [facility] [employer] 01-06-2024 05:51-0500 Body mass index (BMI) [Ratio] 26.56 kg/m2 Sarath Ramos MD Work Phone: [facility] [employer] 01-06-2024 05:51-0500 Body weight 68 kg Sarath Ramos MD Work Phone: [facility] 12-06-2023 09:45-0500 Diastolic blood pressure 80 mm[Hg] Sarath Ramos MD Work Phone: [facility] 12-06-2023 09:45-0500 Heart rate 68 /min Sarath Ramos MD Work Phone: [facility] 12-06-2023 09:45-0500 SaO2% (BldA) [Mass fraction] 100 % Sarath Ramos MD Work Phone: [facility] 12-06-2023 09:45-0500 Systolic blood pressure 111 mm[Hg] Sarath Ramos MD Work Phone: [facility] 12-06-2023 09:35-0500 Body temperature 98.01 [degF] Sarath Ramos MD Work Phone: [facility] 12-06-2023 09:35-0500 Respiratory rate 10 /min Sarath Ramos MD Work Phone: [facility] 12-06-2023 06:59-0500 Body height 160 cm Sarath Ramos MD Work Phone: [facility] 12-06-2023 06:59-0500 Body mass index (BMI) [Ratio] 26.57 kg/m2 Sarath Ramos MD Work Phone: [facility] [employer] 12-06-2023 06:59-0500 Body weight 68.04 kg Sarath Ramos MD Work Phone: [facility] [employer] 11-22-2023 00:46-0500 Blood Pressure Cuff Size DR SWETHA KRAMER DO [facility] 11-22-2023 00:46-[address] SWETHA KRAMER DO [facility] 11-22-2023 00:46-[address] SWETHA KRAMER DO [facility] 11-22-2023 00:46-0500 Body temperature 96.98 [degF] DR SWETHA KRAMER DO [facility] 11-22-2023 00:46-0500 Diastolic Blood Pressure Non-Invasive 88 mm[Hg] DR SWETHA KRAMER DO [facility] 11-22-2023 00:46-0500 Heart rate 79 /min DR SWETHA KRAMER DO [facility] 11-22-2023 00:46-0500 Reason For Taking VItal Signs DR SWETHA KRAMER DO [facility] 11-22-2023 00:46-0500 Respiratory rate 18 /min DR SWETHA KRAMER DO [facility] 11-22-2023 00:46-0500 Systolic Blood Pressure Non-Invasive 167 mm[Hg] DR SWETHA KRAMER DO [facility] 11-20-2023 13:05-[address] MARIA DEL ROSARIO HAILE MD [facility] 11-20-2023 13:05-0500 Body temperature 97.7 [degF] DR MARIA DEL ROSARIO HAILE MD [facility] 11-20-2023 13:05-0500 Diastolic Blood Pressure Non-Invasive 73 mm[Hg] DR MARIA DEL ROSARIO HAILE MD [facility] 11-20-2023 13:05-0500 Heart rate 90 /min DR MARIA DEL ROSARIO HAILE MD [facility] 11-20-2023 13:05-0500 Respiratory rate 16 /min DR MARIA DEL ROSARIO HAILE MD [facility] 11-20-2023 13:05-0500 Systolic Blood Pressure Non-Invasive 112 mm[Hg] DR MARIA DEL ROSARIO HAILE MD [facility] 11-11-2023 23:52-0500 Blood Pressure Cuff Size YOAN GARZONT DO [facility] 11-11-2023 23:52-0500 Blood Pressure Location YOAN KELLEY DO [facility] 11-11-2023 23:52-0500 Blood Pressure Method YOAN KELLEY D O [facility] 11-11-2023 23:52-0500 Body temperature 96.8 [degF] YOAN GARZONT DO [facility] 11-11-2023 23:52-0500 Diastolic Blood Pressure Non-Invasive 94 mm[Hg] YOAN GARZONT DO [facility] 11-11-2023 23:52-0500 Heart rate 86 /min YOAN GARZONT [facility] 11-11-2023 23:52-0500 Reason For Taking VItal Signs YOAN KELLEY [facility] 11-11-2023 23:52-0500 Respiratory rate 18 /min YOAN GARZONT DO [facility] 11-11-2023 23:52-0500 Systolic Blood Pressure Non-Invasive 154 mm[Hg] YOAN GARZONT DO [facility] 11-07-2023 01:01-0500 Body temperature 97.52 [degF] DR SWETHA KRAMER DO [facility] 11-07-2023 01:01-0500 Diastolic Blood Pressure Non-Invasive 99 mm[Hg] DR SWETHA KRAMER DO [facility] 11-07-2023 01:01-0500 Heart rate 86 /min DR SWETHA KRAMER DO [facility] 11-07-2023 01:01-0500 Respiratory rate 16 /min DR SWETHA KRAMER DO [facility] 11-07-2023 01:01-0500 Systolic Blood Pressure Non-Invasive 182 mm[Hg] DR SWETHA KRAMER DO [facility] 11-03-2023 13:11-0500 Body temperature 97.88 [degF] DR DAMIR CHAVARRIA MD [facility] 11-03-2023 13:11-0500 Diastolic Blood Pressure Non-Invasive 78 mm[Hg] DR DAMIR CHAVARRIA MD [facility] 11-03-2023 13:11-0500 Heart rate 86 /min DR DAMIR CHAVARRIA MD [facility] 11-03-2023 13:11-0500 Respiratory rate 16 /min DR DAMIR CHAVARRIA MD [facility] 11-03-2023 13:11-0500 Systolic Blood Pressure Non-Invasive 138 mm[Hg] DR DAMIR CHAVARRIA MD [facility] 12-30-2022 13:00-0500 Body temperature 97 [degF] Dr. Stacey Newberry Work Phone: [facility] 12-30-2022 13:00-0500 Diastolic blood pressure 67 mm[Hg] Dr. Stacey Newberry Work Phone: [facility] 12-30-2022 13:00-0500 Heart rate 78 /min Dr. Stacey Newberry Work Phone: [facility] 12-30-2022 13:00-0500 Respiratory rate 16 /min Dr. Stacey Newberry Work Phone: [facility] 12-30-2022 13:00-0500 SaO2% (BldA) [Mass fraction] 97 % Dr. Stacey Newberry Work Phone: [facility] 12-30-2022 13:00-0500 Systolic blood pressure 115 mm[Hg] Dr. Stacey Newberry Work Phone: [facility] 12-29-2022 16:32-0500 Body height 162.[address] Stacey Newberry Work Phone: [facility] 12-29-2022 16:32-0500 Body weight 59.[address] Stacey Newberry Work Phone: [facility] 12-22-2022 16:17-0500 Body mass index (BMI) [Ratio] 23.8 kg/m2 Dr. Stacey Newberry Work Phone: [facility] 12-15-2022 11:02-0500 Body mass index (BMI) [Ratio] 24.7 kg/m2 Dr. Stacey Newberry Work Phone: [facility] 12-15-2022 11:02-0500 Body weight 65.[address] Stacey Newberry Work Phone: [facility] 12-15-2022 11:02-0500 Diastolic blood pressure 80 mm[Hg] Dr. Stacey Newberry Work Phone: [facility] 12-15-2022 11:02-0500 Heart rate 63 /min Dr. Stacey Newberry Work Phone: [facility] 12-15-2022 11:02-0500 Respiratory rate 18 /min Dr. Stacey Newberry Work Phone: [facility] 12-15-2022 11:02-0500 SaO2% (BldA) [Mass fraction] 98 % Dr. Stacey Newberry Work Phone: [facility] 12-15-2022 11:02-0500 Systolic blood pressure 125 mm[Hg] Dr. Stacey Newberry Work Phone: [facility] 09-17-2022 09:19-0400 Body temperature 97.39 [degF] Sarath Ramos MD Work Phone: [facility] 09-17-2022 09:19-0400 Diastolic blood pressure 82 mm[Hg] Sarath Ramos MD Work Phone: [facility] 09-17-2022 09:19-0400 Heart rate 66 /min Sarath Ramos MD Work Phone: [facility] 09-17-2022 09:19-0400 SaO2% (BldA) [Mass fraction] 98 % Sarath Ramos MD Work Phone: [facility] 09-17-2022 09:19-0400 Systolic blood pressure 129 mm[Hg] Sarath Ramos MD Work Phone: [facility] 09-17-2022 09:15-0400 Body height 160 cm Sarath Ramos MD Work Phone: [facility] 09-17-2022 09:15-0400 Body mass index (BMI) [Ratio] 26.22 kg/m2 Sarath Ramos MD Work Phone: [facility] 09-17-2022 09:15-0400 Body weight 67.13 kg Sarath Ramos MD Work Phone: [facility] 03-15-2022 10:58-0400 Body temperature 98.49 [degF] Aleida Mitchell APRN.TOW DRIVER Work Phone: [facility] [place] 03-15-2022 10:58-0400 Body weight 72.58 kg Aleida Mitchell APRN.TOW DRIVER Work Phone: [facility] [place] 03-15-2022 10:58-0400 Diastolic blood pressure 80 mm[Hg] Aleida Mitchell APRN.TOW DRIVER Work Phone: [facility] [place] 03-15-2022 10:58-0400 Heart rate 85 /min Aleida Stephen MICROBIOLOGY INSTRUCTOR.TOW DRIVER Work Phone: [facility] [place] 03-15-2022 10:58-0400 Respiratory rate 21 /min Aleida Stephen MICROBIOLOGY INSTRUCTOR.TOW DRIVER Work Phone: [facility] [place] 03-15-2022 10:58-0400 SaO2% (BldA) [Mass fraction] 98 % Aleida Stephen MICROBIOLOGY INSTRUCTOR.TOW DRIVER Work Phone: [facility] [place] 03-15-2022 10:58-0400 Systolic blood pressure 98 mm[Hg] Aleida Stephen MICROBIOLOGY INSTRUCTOR.TOW DRIVER Work Phone: [facility] [place] 03-14-2022 08:59-0400 Body temperature 99 [degF] Sarath Ramos MD Work Phone: [facility] 03-14-2022 08:59-0400 Diastolic blood pressure 73 mm[Hg] Sarath Ramos MD Work Phone: [facility] 03-14-2022 08:59-0400 Heart rate 74 /min Sarath Ramos MD Work Phone: [facility] 03-14-2022 08:59-0400 Respiratory rate 16 /min Sarath Ramos MD Work Phone: [facility] 03-14-2022 08:59-0400 SaO2% (BldA) [Mass fraction] 96 % Sarath Ramos MD Work Phone: [facility] 03-14-2022 08:59-0400 Systolic blood pressure 107 mm[Hg] Sarath Ramos MD Work Phone: [facility] 03-12-2022 08:43-0400 Body height 157.5 cm Sarath Ramos MD Work Phone: [facility] 12-28-2021 10:48-0500 Diastolic blood pressure 84 mm[Hg] DR KRISH HARRIS MD [facility] 12-28-2021 10:48-0500 Heart rate 67 /min DR KRISH HARRIS MD [facility] 12-28-2021 10:48-0500 Respiratory rate 16 /min DR KRISH HARRIS MD [facility] 12-28-2021 10:48-0500 Systolic blood pressure 111 mm[Hg] DR KRISH HARRIS MD [facility] 12-28-2021 09:55-0500 Diastolic blood pressure 83 mm[Hg] DR KRISH HARRIS MD [facility] 12-28-2021 09:55-0500 Heart rate 66 /min DR KRISH HARRIS MD [facility] 12-28-2021 09:55-0500 Respiratory rate 14 /min DR KRISH HARRIS MD [facility] 12-28-2021 09:55-0500 Systolic blood pressure 150 mm[Hg] DR KRISH HARRIS MD [facility] 12-28-2021 09:50-0500 Diastolic blood pressure 93 mm[Hg] DR KRISH HARRIS MD [facility] 12-28-2021 09:50-0500 Heart rate 69 /min DR KRISH HARRIS MD [facility] 12-28-2021 09:50-0500 Respiratory rate 20 /min DR KRISH HARRIS MD [facility] 12-28-2021 09:50-0500 Systolic blood pressure 110 mm[Hg] DR KRISH HARRIS MD [facility] 12-28-2021 09:48-0500 Body temperature 96.44 [degF] DR KRISH HARRIS MD [facility] 12-28-2021 09:41-0500 Diastolic Blood Pressure NBP [address] KRISH HARRIS MD [facility] 12-28-2021 09:41-0500 Systolic Blood Pressure NBP [address] KRISH HARRIS MD [facility] 12-28-2021 07:59-0500 Body height 62.[address] KRISH HARRIS MD [facility] 12-28-2021 07:59-0500 Body temperature 97.7 [degF] DR KRISH HARRIS MD [facility] 12-28-2021 07:59-0500 Body weight 80.[address] KRISH HARRIS MD [facility] 12-28-2021 07:59-0500 Heart rate 74 /min DR KRISH HARRIS MD [facility] 12-10-2021 11:28-0500 Body height 162.6 cm PING PERRY MD [facility] 12-10-2021 11:28-0500 Body temperature 98.42 [degF] PING PERRY MD [facility] 12-10-2021 11:28-0500 Body weight 80.3 kg PING PERRY MD [facility] 12-10-2021 11:28-0500 Heart rate 86 /min PING PERRY MD [facility] 12-10-2021 11:28-0500 Respiratory rate 24 /min PING PERRY MD [facility] 11-12-2021 10:25-0500 Body temperature 98.6 [degF] YOAN FROMMELT DO [facility] 11-12-2021 10:25-0500 Diastolic blood pressure 86 mm[Hg] YOAN FROMMELT DO [facility] 11-12-2021 10:25-0500 Heart rate 77 /min YOAN FROMMELT DO [facility] 11-12-2021 10:25-0500 Respiratory rate 18 /min YOAN FROMMELT DO [facility] 11-12-2021 10:25-0500 Systolic blood pressure 126 mm[Hg] YOAN FROMMELT DO [facility] 11-09-2021 14:36-0500 Body temperature 98.06 [degF] MARTHA MACHUCA MD [facility] 11-09-2021 14:36-0500 Diastolic blood pressure 88 mm[Hg] MARTHA MACHUCA MD [facility] 11-09-2021 14:36-0500 Heart rate 76 /min MARTHA MACHUCA MD [facility] 11-09-2021 14:36-0500 Respiratory rate 16 /min MARTHA MACHUCA MD [facility] 11-09-2021 14:36-0500 Systolic blood pressure 145 mm[Hg] MARTHA MACHUCA MD [facility] 11-01-2021 08:16-0500 Diastolic blood pressure 82 mm[Hg] DR DAMIR CAHVARRIA MD [facility] 11-01-2021 08:16-0500 Heart rate 58 /min DR DAMIR CHAVARRIA MD [facility] 11-01-2021 08:16-0500 Mean blood pressure 112 mm[Hg] DR DAMIR CHAVARRIA MD [facility] 11-01-2021 08:16-0500 Respiratory rate 16 /min DR DAMIR CHAVARRIA MD [facility] 11-01-2021 08:16-0500 Systolic blood pressure 171 mm[Hg] DR DAMIR CHAVARRIA MD [facility] 11-01-2021 07:10-0500 Body temperature 98.24 [degF] DR DAMIR CHAVARRIA MD [facility] 11-01-2021 07:10-0500 Diastolic blood pressure 102 mm[Hg] DR DAMIR CHAVARRIA MD [facility] 11-01-2021 07:10-0500 Heart rate 75 /min DR DAMIR CHAVARRIA MD [facility] 11-01-2021 07:10-0500 Mean blood pressure 133 mm[Hg] DR DAMIR CHAVARRIA MD [facility] 11-01-2021 07:10-0500 Respiratory rate 20 /min DR DAMIR CHAVARRIA MD [facility] 11-01-2021 07:10-0500 Systolic blood pressure 195 mm[Hg] DR DAMIR CHAVARRIA MD [facility] 10-30-2021 19:07-0500 Body height 162.[address] MARIA DEL ROSARIO HAILE MD [facility] 10-30-2021 19:07-0500 Body temperature 98.24 [degF] DR MARIA DEL ROSARIO HAILE MD [facility] 10-30-2021 19:07-0500 Body weight 88.[address] MARIA DEL ROSARIO HAILE MD [facility] 10-30-2021 19:07-0500 Diastolic blood pressure 88 mm[Hg] DR MARIA DEL ROSARIO HAILE MD [facility] 10-30-2021 19:07-0500 Heart rate 73 /min DR MARIA DEL ROSARIO HAILE MD [facility] 10-30-2021 19:07-0500 Respiratory rate 22 /min DR MARIA DEL ROSARIO HAILE MD [facility] 10-30-2021 19:07-0500 Systolic blood pressure 149 mm[Hg] DR MARIA DEL ROSARIO HAILE MD [facility] 10-05-2021 09:45-0500 Body height [address] ROHINI JENKINS MD [facility] 10-05-2021 09:45-0500 Body weight 86.[address] ROHINI JENKINS MD [facility] 10-05-2021 09:45-0500 Body weight 34.73 kg/m2 DR ROHINI JENKINS MD [facility] 10-05-2021 09:45-0500 diastolic 74 mm[Hg] DR ROHINI JENKINS MD [facility] 10-05-2021 09:45-0500 Heart rate 80 /min DR ROHINI JENKINS MD [facility] 10-05-2021 09:45-0500 Respiratory rate 18 /min DR ROHINI JENKINS MD [facility] 10-05-2021 09:45-0500 systolic 110 mm[Hg] DR ROHINI JENKINS MD [facility] Encounters Encounter Date Encounter Type Care Provider Facility Start: 06-04-2025 End: 06-04-2025 ambulatory Nay FLETCHER Facility:[facility] Start: 03-06-2025 End: 03-06-2025 Telephone encounter Shaun Eastman MD Work Phone: [facility] Comment on above: Other (Prior authori zation) Start: 03-06-2025 End: 03-06-2025 ambulatory [facility] Start: 03-06-2025 End: 03-06-2025 Patient encounter procedure Shaun Eastman MD Work Phone: [facility] Comment on above: Nephrolithiasis (Jayashree chad Dx) Start: 02-25-2025 End: 02-25-[address] Nay Greenwood MD [facility] Work Phone: Start: 02-25-2025 End: 02-25-[address] Nay Greenwood MD -[facility] Work Phone: Start: 02-25-2025 End: 02-25-2025 ambulatory Nay FLETCHER Facility:[facility] Start: 02-22-2025 End: 02-22-2025 Telephone encounter Sarath Hi CNP Work Phone: [facility] Start: 02-19-2025 End: 02-21-2025 Telephone encounter [facility] Start: 02-19-2025 End: 02-19-2025 ambulatory [facility] Start: 02-19-2025 End: 02-19-2025 Subsequent hospital visit by physician Sarath Ramos MD Work Phone: [facility] Comment on above: Right kidney stone; Renal calculus Start: 02-18-2025 End: 02-18-2025 Orders Only Kiara Wayne PA-C [facility] Comment on above: Urinary tract infect ion without hematuria, site unspecified (Primary Dx) Start: 02-15-2025 End: 02-15-2025 ambulatory [facility] Start: 02-15-2025 End: 02-15-2025 Encounter for other preprocedural examination [facility] Start: 02-07-2025 End: 02-13-2025 Telephone encounter Kiara Wayne PA-C [facility] Start: 02-07-2025 End: 02-07-2025 Office outpatient visit 25 minutes Kiara Wayne PA-C Work Phone: [facility] Comment on above: Right kidney stone ( Primary Dx) Start: 02-07-2025 End: 02-07-2025 ambulatory Kiara Wayne PA-C [facility] Comment on above: Right kidney stone ( Primary Dx) Start: 02-05-2025 End: 02-05-2025 Telephone encounter Chad Hi CNP Work Phone: [facility] Comment on above: Results (Ct Scan) Start: 02-04-2025 End: 02-04-[address] Nay Greenwood MD [facility] Work Phone: Start: 02-04-2025 End: 02-04-[address] [facility] Work [facility]: Start: 02-04-[address] [facility] Work Phone: Start: 02-04-2025 End: 02-04-2025 ambulatory Nay Greenwood Facility:[facility] Start: 01-29-2025 End: 01-29-2025 Subsequent hospital visit by physician Sarath Ramos MD Work Phone: [facility] Comment on above: Right kidney stone; UPJ obstruction, acquired Start: 01-29-2025 End: 01-29-2025 ambulatory [facility] Start: 01-18-2025 End: 01-24-2025 Telephone encounter Sarath Ramos MD Work Phone: [facility] Central Scheduling Comment on above: Other (Authorization ) Start: 12-28-2024 End: 12-28-2024 Emergency department patient visit Dr. Masood Holden DO -Emergency Department Work Phone: Start: 12-14-2024 ambulatory Nay Crisostomoa OLS Facili ty:[facility] Start: 12-14-[address] [facility] Work Phone: Start: 12-10-2024 End: 12-10-[address] [facility] Work Phone: Start: 12-10-2024 End: 12-10-2024 ambulatory Nay FLETCHER Facility:[facility] Start: 12-03-2024 ambulatory Nay Greenwood OLS Facili ty:[facility] Start: 12-03-[address] [facility] Work [facility]: Start: 10-17-2024 End: 10-17-2024 ambulatory Nay Greenwood JUSTINE Facility:[facility] Start: 03-23-2024 End: 03-28-2024 ambulatory STACEY HALKO DO Facility:B Start: 02-14-2024 End: 02-14-2024 Office outpatient visit 25 minutes Sarath Ramos MD Work Phone: [facility] Urology Comment on above: Right kidney stone ( Primary Dx); UPJ obstruction, acquired Start: 02-10-2024 End: 02-11-2024 ambulatory STACEY HALKO DO Facility:B Start: 02-10-2024 End: 02-10-2024 Patient encounter procedure STACEY HALKO DO [facility] Start: 02-06-2024 End: 02-06-2024 Subsequent hospital visit by physician Sarath Ramos MD Work Phone: [facility] Nuclear Medicine Comment on above: UPJ obstruction, acq uired Start: 01-13-2024 End: 01-18-2024 ambulatory STACEY HALKO DO Facility:B Start: 01-13-2024 End: 01-17-2024 Outreach Lab STACEY HALKO DO [facility] Start: 01-10-2024 End: 01-15-2024 ambulatory STACEY HALKO DO Facility:B Start: 01-10-2024 End: 01-14-2024 Outreach Lab STACEY HALKO DO [facility] Start: 01-06-2024 End: 01-06-2024 Subsequent hospital visit by physician Sarath Ramos MD Work Phone: [facility] OR Start: 12-23-2023 End: 12-28-2023 ambulatory STACEY HALKO DO Facility:B Start: 12-23-2023 End: 12-27-2023 Outreach Lab STACEY HALKO DO [facility] Start: 12-06-2023 End: 12-06-2023 Subsequent hospital visit by physician Sarath Ramos MD Work Phone: [facility] Comment on above: Right kidney stone; Hydronephrosis, right Start: 11-22-2023 End: 11-22-2023 Emergency department patient visit DR SWETHA KRAMER DO Facility:B Start: 11-22-2023 End: 11-22-2023 Emergency department patient visit DR SWETHA KRAMER DO [facility] Start: 11-20-2023 End: 11-20-2023 Emergency department patient visit DR MARIA DEL ROSARIO HAILE MD Facility:B Start: 11-20-2023 End: 11-20-2023 Emergency department patient visit DR MARIA DEL ROSARIO HAILE MD [facility] Start: 11-15-2023 End: 11-15-2023 Emergency department patient visit YOAN KELLEY DO Facility:B Start: 11-15-2023 End: 11-15-2023 [facility] Start: 11-14-2023 ambulatory Eugenio Rodriguez MICROBIOLOGY INSTRUCTOR - TOW DRIVER Work Phone: [facility] Urology Comment on above: Right kidney stone ( Primary Dx); Hydronephrosis, right Start: 11-14-2023 Telephone encounter Eugenio Barrett MICROBIOLOGY INSTRUCTOR - TOW DRIVER Work Phone: [facility] Urology Comment on above: Results Start: 11-12-2023 End: 11-12-2023 Emergency department patient visit YOAN KELLEY DO Facility:B Start: 11-11-2023 End: 11-12-2023 Emergency department patient visit YOAN GARZON [facility] Start: 11-11-2023 ambulatory Kaylan Machado RN [facility] Start: 11-11-2023 Patient encounter procedure Kaylan Machado RN [facility] Start: 11-10-2023 End: 11-10-2023 Office outpatient visit 25 minutes Sarath Ramos MD Work Phone: [facility] Urology Comment on above: Right kidney stone ( Primary Dx); Burning with urination Start: 11-08-2023 End: 11-09-2023 ambulatory STACEY NEWBERRY DO Facility:B Start: 11-08-2023 End: 11-08-2023 Patient encounter procedure STACEY NEWBERRY DO [facility] Start: 11-07-2023 End: 11-07-2023 Emergency department patient visit DR SWETHA KRAMER DO Facility:B Start: 11-07-2023 End: 11-07-2023 Emergency department patient visit DR SWETHA KRAMER DO [facility] Start: 11-03-2023 End: 11-03-2023 Emergency department patient visit DR DAMIR CHAVARRIA MD Facility:B Start: 11-03-2023 Telephone encounter Sarath lawrence MD Work Phone: [facility] Start: 11-03-2023 End: 11-03-2023 Emergency department patient visit DR DAMIR CHAVARRIA MD [facility] Start: 10-25-2023 Telephone encounter Eugenio Barrett MICROBIOLOGY INSTRUCTOR - TOW DRIVER Work Phone: [facility] Comment on above: Cancelled Appointmen t (10/25/23 Pt called at 07:17 AM pt not feeling well pt cx appt would like a call back to r/s appt [facility]) Start: 10-24-2023 End: 10-29-2023 ambulatory [facility] MICROBIOLOGY INSTRUCTOR-TOW DRIVER Facility:B Start: 10-24-2023 End: 10-28-2023 Outreach Lab [facility] MICROBIOLOGY INSTRUCTOR-TOW DRIVER [facility] Start: 10-07-2023 End: 10-07-2023 Subsequent hospital visit by physician Elie Umana MD Work Phone: [facility] Radiology Comment on above: Renal calculus, left Start: 06-07-2023 End: 06-12-2023 ambulatory STACEY NEWBERRY DO Facility:B Start: 02-15-2023 End: 02-15-2023 Patient encounter procedure STACEY BROCKJEANNINE NAGY [facility] Start: 01-07-2023 End: 02-10-2023 Admission to same day surgery center DR REBEKAH NICHOLSON MD [facility] Start: 12-22-2022 End: 12-30-2022 Evaluation and management of inpatient Dr. Stacye Newberry Work Phone: [facility] Start: 12-15-[address] Arelis Newberry Work Phone: [facility] Start: 12-15-2022 End: 12-15-2022 Admission to same day surgery center Dr. Stacey Newberry Work Phone: [facility] Start: 12-15-2022 End: 12-15-[address] Stacey Newberry Work Phone: [facility] Start: 09-24-2022 End: 09-25-2022 [facility] Start: 09-17-2022 ambulatory Stacey Brockjeannine [facility] Start: 09-17-2022 Encounter for other preprocedural examination Sarath Ramos [facility] Start: 09-17-2022 End: 09-17-2022 Subsequent hospital visit by physician Sarath Ramos MD Work Phone: [facility] Pre-Admit Testing Comment on above: Acute cystitis with hematuria Start: 08-31-2022 End: 09-04-2022 Outreach Lab STACEY NEWBERRY DO [facility] Start: 08-11-2022 End: 08-15-2022 Outreach Lab TAMRA DWYER MICROBIOLOGY INSTRUCTOR-TOW DRIVER [facility] Start: 07-14-2022 End: 07-14-2022 Subsequent hospital visit by physician Sarath Ramos MD Work Phone: [facility] Radiology Comment on above: Renal calculi Start: 07-06-2022 End: 07-06-2022 Patient encounter procedure STACEY NEWBERRY [facility] Start: 05-17-2022 End: 05-17-[address] KRISH HARRIS MD [facility] Start: 03-15-2022 End: 03-15-2022 Patient encounter procedure Aleida Mitchell MICROBIOLOGY INSTRUCTOR.TOW DRIVER Work Phone: [facility] Comment on above: Allergic reaction, i nitial encounter (Primary Dx) Start: 03-12-2022 End: 03-14-2022 ambulatory [facility] Start: 03-12-2022 End: 03-14-2022 Subsequent hospital visit by physician Sarath Ramos MD Work Phone: [facility] MED SURG Comment on above: Renal calculus, righ t (Primary Dx) Start: 03-05-2022 ambulatory PCP [facility] Start: 02-18-2022 End: 02-22-2022 Outreach Lab MAX MONTANEZ MICROBIOLOGY INSTRUCTOR-TOW DRIVER [facility] Start: 01-28-2022 End: 02-01-2022 Outreach Lab KIAH CHANEY MICROBIOLOGY INSTRUCTOR-TOW DRIVER [facility] Start: 01-20-2022 End: 01-20-2022 Patient encounter procedure STACEY NEWBERRY DO [facility] Start: 12-28-2021 End: 12-28-[address] KRISH HARRIS MD [facility] Start: 12-10-2021 End: 12-10-2021 Emergency department patient visit PING PERRY MD [facility] Start: 11-19-2021 End: 11-19-2021 Emergency department patient visit DR SWETHA KRAMER DO [facility] Start: 11-19-2021 End: 11-19-2021 Emergency department patient visit PING PERRY MD [facility] Start: 11-18-2021 End: 11-22-2021 Outreach Lab AMBROCIO RUSSO MICROBIOLOGY INSTRUCTOR-TOW DRIVER [facility] Start: 11-12-2021 End: 11-12-2021 Emergency department patient visit YOAN KELLEY DO [facility] Start: 11-09-2021 End: 11-09-2021 Emergency department patient visit MARTHA MACHUCA MD [facility] Start: 11-04-2021 End: 11-08-2021 Outreach Lab TRINITY COKER MICROBIOLOGY INSTRUCTOR-TOW DRIVER [facility] Start: 11-03-2021 End: 11-03-2021 Emergency department patient visit AUDREY VERAS MD [facility] Start: 11-01-2021 End: 11-01-[address] DAMIR CHAVARRIA MD [facility] Start: 11-01-2021 End: 11-01-2021 Emergency department patient visit DR DAMIR CHAVARRIA MD [facility] Start: 10-30-2021 End: 10-30-2021 Emergency department patient visit DR MARIA DEL ROSARIO HAILE MD [facility] Start: 10-05-2021 End: 10-05-[address] ROHINI JENKINS MD [facility] Start: 10-05-2021 End: 10-05-[address] ROHINI JENKINS MD [facility] Start: 09-16-2021 End: 09-16-2021 Patient encounter procedure STACEY NEWBERRY DO [facility] Procedures Date Procedure Procedure Detail Performing Clinician Start: 02-19-2025 FL GUIDANCE OR USE O NLY - NON-RESULTABLE Sarath Ramos MD Work Phone: Start: 02-19-2025 End: 02-19-2025 Cysto bladder w/ureteral catheterization Sarath Ramos MD Work Phone: Start: 02-19-2025 End: 02-19-2025 Cysto w/ureteroscopy w/lithotripsy Sarath Ramos MD Work Phone: Start: 01-29-2025 Ct abdomen & pelvis w/o contrast material Sarath Ramos MD Work Phone: Start: 12-28-2024 CT cervical spine wi thout contrast Dr. Nay Greenwood MD Start: 12-28-2024 CT of head without contrast Dr. Nay Greenwood MD Start: 12-10-[address] Bobo Greenwood MD Start: 02-06-2024 Kidney img morpholog y vascular flow multiple Sarath Ramos MD Work Phone: Start: 01-06-2024 FL GUIDANCE OR USE O NLY - NON-RESULTABLE Sarath Ramos MD Work Phone: Start: 12-06-2023 FL GUIDANCE OR USE O NLY - NON-RESULTABLE Sarath Ramos MD Work Phone: Start: 11-10-2023 Urnls dip stick/tabl et rgnt auto w/o microscopy Sarath Ramos MD Work Phone: Start: 12-24-2022 Plain X-ray abdomen Dr. Stacey Newberry Work Phone: Start: 11-28-2022 Structure of right k nee (body structure) YOAN KELLEY DO Start: 09-17-2022 Urnls dip stick/tabl et rgnt auto w/o microscopy Toñakerry Escamilla MICROBIOLOGY INSTRUCTOR - TOW DRIVER Work Phone: Start: 09-17-2022 BASIC METABOLIC PANE L W/ REFLEX TO MG FOR LOW K Toña W Ammonika MICROBIOLOGY INSTRUCTOR - TOW DRIVER Work Phone: Start: 09-17-2022 Ecg routine ecg w/le ast 12 lds w/i&r Toñaaidee Escamilla MICROBIOLOGY INSTRUCTOR - TOW DRIVER Work Phone: Start: 03-14-2022 Basic metabolic pane l calcium total Maria Del Rosario Hsu MD Work Phone: Start: 03-13-2022 Radiologic exam abdo men 1 view Malcom Marcano MD Work Phone: Start: 03-13-2022 Blood count complete auto&auto difrntl wbc Malcom Marcano MD Work Phone: Start: 03-13-2022 Basic metabolic pane l calcium total Malcom Marcano MD Work Phone: Start: 03-12-2022 OPERATIVE REPORT Physic rebekah Generic Start: 03-12-2022 Special diagnostic procedures Sarath Ramos MD Work Phone: Start: 03-12-2022 Basic metabolic pane l calcium total Annemarie Feroz Olguin MICROBIOLOGY INSTRUCTOR - TOW DRIVER Work Phone: Start: 12-09-2014 Endoscopic biopsy LESLY MALHOTRA BROCKJEANNINE DO Hysterectomy STACEY BROCKJEANNINE Jeff O Left cataract extraction LONNIE RLBECKY FROMSocraticT DO Lithotripsy YOAN FROMHILARIO Bailey DO 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 Trevor Newberry Work Phone: Plan of Treatment Date Care Activity Detail Author Start: 03-18-2026 End: 03-18-2026 Patient encounter procedure 03/18/2026 2:30 PM EDT Office Visit [facility] [address] [place] [address] Shaun Eastman MD [address] [place], [place] [id number] [facility] [place] Start: 02-26-2026 End: 02-26-2026 Patient encounter procedure 02/26/2026 3:45 PM EDT Appointment [facility] CT [address] [place] [address] Shaun Eastman MD [address] [place] [address] [facility] [address] Start: 02-26-2026 End: 03-06-2026 CT Abdomen and Pelvis WO contrast CT abdomen pelvis wo IV contrast Imaging Routine Nephrolithiasis Expected: 02/26/2026, Expires: 03/06/2026 [facility] Work Phone: Comment on above: Expected: 02/26/2026 , Expires: 03/06/2026 Start: 07-29-2025 Influenza vaccination Influenz a Vaccine (Season Ended) [facility] Start: 03-06-2025 End: 03-06-2025 Patient encounter procedure 03/06/2025 9:20 AM EDT Procedure Visit [address] [phone] Shaun Eastman MD [address] [place] [address] [facility] Start: 02-19-2025 End: 02-19-2025 Admission to same day surgery center 02/19/2025 1:30 PM EDT - 02/19/2025 3:00 PM EDT Surgery [facility] OR [address] [place] [phone] Sarath Ramos MD [address] [place] [id number] CYSTOSCOPY, WITH RETROGRADE PYELOGRAM [67397 (CPT )] [facility] Comment on above: CYSTOSCOPY, WITH RET ROGRADE PYELOGRAM [13888 (CPT )] Start: 02-19-2025 End: 02-19-2025 Anesthesia consultation 02/19/2025 1:30 PM EDT Anesthesia Event [facility] OR [address] [place] [phone] Sana Crowder, MICROBIOLOGY INSTRUCTOR - TOW DRIVER [address] [place] [address] [facility] Start: 02-19-2025 End: 02-19-2025 Cysto bladder w/ureteral catheterization CYSTOSCOPY, WITH RETROGRADE PYELOGRAM Renal calculus 02/19/2025 1:30 PM EDT [facility] Operating Room Start: 02-19-2025 End: 02-19-2025 Cysto w/insert ureteral stent CYSTOSCOPY, WITH URETERAL STENT INSERTION Renal calculus 02/19/2025 1:30 PM EDT [facility] Operating Room Start: 02-19-2025 End: 02-19-2025 Cysto w/ureteroscopy w/lithotripsy CYSTOURETEROSCOPY, WITH LITHOTRIPSY Renal calculus 02/19/2025 1:30 PM EDT [facility] Operating Room Start: 02-19-2025 Subsequent hospital visit by physician [facility] OR Start: 02-15-2025 End: 02-15-2025 Admission to establishment 02/15/2025 9:30 AM EDT Pre-Admission Testing [facility] Pre-Admit Testing [address] [facility] [place] [address] Sarath Ramos MD [address] [place] [address] [facility] Pre-Admit Testing Start: 02-13-2025 End: 02-13-2025 CT Abdomen WO contrast CT abdomen pelvis wo IV contrast Imaging Routine Right kidney stone UPJ obstruction, acquired Expected: 02/13/2025, Expires: 02/13/2025 [facility] Work Phone: Comment on above: Expected: 02/13/2025 , Expires: 02/13/2025 Start: 02-07-2025 End: 05-10-2025 Bacteria identified in Urine by Culture Urine culture Microbiology Routine Right kidney stone Expected: 02/07/2025 (Approximate), Expires: 05/10/2025 [facility] Work Phone: Comment on above: Expected: 02/07/2025 (Approximate), Expires: 05/10/2025 Start: 02-07-2025 End: 02-07-2025 Patient encounter procedure [facility] Start: 01-29-2025 Subsequent hospital visit by physician 01/29/2025 4:15 PM EST Hospital Encounter [facility] [address] [place] [phone] Sarath Ramos MD [address] [place] [address] [facility] [address] Start: 01-28-2025 End: 01-28-2025 Patient encounter procedure 01/28/2025 11:15 AM EST Appointment [facility] [address] [place] [phone] Sarath Ramos MD [address] [place] [address] [facility] [address] Start: 12-28-2024 [facility] Start: 11-28-2024 Medicare Advantage A nnual Wellness Visit Medicare Advantage Annual Wellness Visit [facility] Start: 07-29-2024 COVID-19 Vaccine ( season) COVID-19 Vaccine ( season) [facility] Start: 07-29-2024 Influenza vaccination Influenza Vacc ine (#1) [facility] Start: 02-21-2024 End: 02-21-2024 Patient encounter procedure 02/21/2024 11:20 AM EDT Office Visit [facility] [address] [place] [phone] Eugenio Barrett, MICROBIOLOGY INSTRUCTOR - TOW DRIVER [address] [place] [address] [facility] Start: 02-14-2024 End: 02-14-2024 Patient encounter procedure 02/14/2024 10:40 AM EDT Office Visit [facility] [address] [place] [phone] Sarath Ramos MD [address] [place] [address] [facility] Start: 01-19-2024 End: 01-19-2024 Patient encounter procedure 01/19/2024 9:30 AM EST Office Visit [facility] [address] [place] [phone] Sarath Ramos MD [address] [place] [address] [facility] Start: 01-06-2024 End: 01-06-2024 Admission to same day surgery center 01/06/2024 7:30 AM EST - 01/06/2024 8:30 AM EST Surgery [facility] [address] [facility] [place] [phone] [address] [place] [address] CYSTOSCOPY AND PYELOGRAM, RIGHT URETEROSCOPY HOLMIUM LASER LITHOTRIPSY, RIGHT URETERAL STENT REMOVAL [31181 (CPT )] [facility] MAIN OR Comment on above: CYSTOSCOPY AND PYELO GRAM, RIGHT URETEROSCOPY HOLMIUM LASER LITHOTRIPSY, RIGHT URETERAL STENT REMOVAL [57017 (CPT )] Start: 01-06-2024 End: 01-06-2024 Cysto bladder w/ureteral catheterization CYSTOSCOPY AND PYELOGRAM Calculus of kidney 01/06/2024 7:30 AM EST [facility] Operating Room Start: 01-06-2024 End: 01-06-2024 Cysto w/insert ureteral stent CYSTOSCOPY WITH INSERTION URETERAL STENT Calculus of kidney 01/06/2024 7:30 AM EST [facility] Operating Room Start: 01-06-2024 End: 01-06-2024 Cysto w/ureteroscopy w/lithotripsy CYSTOSCOPY WITH URETEROSCOPY AND OR PYELOSCOPY WITH REMOVAL OR MANIPULATION CALCULUS WITH LITHOTRIPSY Calculus of kidney 01/06/2024 7:30 AM EST [facility] Operating Room Start: 01-06-2024 Subsequent hospital visit by physician 01/06/2024 7:30 AM EST Hospital Encounter [facility] [address] [facility] [place] [phone] MD [address] [place] [address] [facility] Start: 11-28-2023 Medicare Advantage A nnual Wellness Visit Medicare Advantage Annual Wellness Visit [facility] Start: 11-10-2023 End: 11-10-2023 Patient encounter procedure 11/10/2023 1:40 PM EST Office Visit [facility] [address] [place] [phone] Sarath Ramos MD [address] [place] [address] [facility] Start: 10-25-2023 End: 10-25-2023 Patient encounter procedure 10/25/2023 11:20 AM EST Office Visit [facility] [address] [place] [phone] Eugenio Barrett, MICROBIOLOGY INSTRUCTOR - TOW DRIVER [address] [place] [address] [facility] Start: 07-29-2023 COVID-19 Vaccine ( season) COVID-19 Vaccine ( season) [facility] Start: 07-29-2023 Influenza vaccination Influenza Vacc ine (#1) [facility] Start: 03-14-2023 Creatinine measurement Creatinine mo nitoring [facility] Start: 03-14-2023 Potassium monitoring Potassium monit oring [facility] Start: 02-10-2023 Blood chemistry [facility] Start: 02-03-2023 Blood chemistry [facility] Start: 01-27-2023 Blood chemistry [facility] Start: 01-20-2023 Blood chemistry [facility] Start: 01-13-2023 Blood chemistry [facility] Start: 2023 RSV Immunization for Adults (1 - 1-dose 75+ series) RSV Immunization for Adults (1 - 1-dose 75+ series) [facility] Start: 01-06-2023 Blood chemistry [facility] Start: 12-29-2022 Developing a treatme nt plan [facility] Start: 12-27-2022 [facility] Start: 12-23-2022 Speech therapy management [facility] Start: 12-23-2022 Referral to service [facility] Start: 12-23-2022 Development of care plan [facility] Start: 12-23-2022 Patient discharge [facility] Start: 12-23-2022 Developing a treatme nt plan [facility] Start: 12-23-2022 Speech therapy assessment [facility] Start: 12-23-2022 Development of care plan [facility] Start: 12-23-2022 Patient referral to dietitian [facility] Start: 12-22-2022 Wound care [facility] Start: 12-22-2022 Provision of activit y privileges [facility] Start: 12-22-2022 Admission procedure [facility] Start: 12-22-2022 Measuring intake and output [facility] Start: 12-22-2022 Patient referral to dietitian [facility] Start: 12-22-2022 Referral to occupati onal therapist [facility] Start: 12-22-2022 Referral to service [facility] Start: 12-22-2022 Vital signs measurements [facility] Start: 12-22-2022 End: 12-22-2022 [facility] Start: 12-22-2022 Application of device [facility] Start: 09-24-2022 End: 09-24-2022 Patient encounter procedure [facility] Start: 07-29-2022 Influenza vaccination [facility] Start: 07-27-2022 End: 07-27-2022 Patient encounter procedure 07/27/2022 Office Visit Urology Sarath Ramos MD [address] [place] [address] [facility] [place] Start: 06-28-2022 Influenza vaccination Flu vaccine (# 1) [facility] Start: 01-25-2022 Annual Wellness Visi t (AWV) Annual Wellness Visit (AWV) [facility] Start: 11-28-2021 ADVANCE DIRECTIVE DISCUSSION ADVANCE DIRECTIVE DISCUSSION [facility] Start: 2013 BONE DENSITY BONE DENSITY [facility] Start: 2013 Pneumococcal 65+ yea rs Vaccine (1 - PCV) Pneumococcal 65+ years Vaccine (1 - PCV) [facility] Start: 2013 Pneumococcal Vaccine : 65+ Years (1 - PCV) Pneumococcal Vaccine: 65+ Years (1 - PCV) [facility] [facility] Start: 2013 Pneumococcal Vaccine : 65+ Years (1 of 1 - PCV) Pneumococcal Vaccine: 65+ Years (1 of 1 - PCV) [facility] Start: 2013 PNEUMOVAX AGE 65 AND OVER WITH 5YR LOOKBACK (#1) PNEUMOVAX AGE 65 AND OVER WITH 5YR LOOKBACK (#1) [facility] [place] Start: 2008 RSV Immunization age d 60 or older (1 - 1-dose 60+ series) RSV Immunization aged 60 or older (1 - 1-dose 60+ series) [facility] Start: 2003 Screening for osteoporosis DEXA (modify frequency per FRAX score) [facility] Start: 1998 Pneumococcal Vaccine : 50+ Years (1 of 1 - PCV) Pneumococcal Vaccine: 50+ Years (1 of 1 - PCV) [facility] Start: 1998 Screening for malign ant neoplasm of breast Breast cancer screen [facility] Start: 1998 Shingles Vaccine (1 of 2) Shingles V accine (1 of 2) [facility] Start: 1998 SHINGRIX VACCINE (1 of 2) SHINGRIX V ACCINE (1 of 2) [facility] [place] Start: 1998 Zoster Vaccines (1 of 2) Zoster Vacc germaine (1 of 2) [facility] Start: 1993 COLOGUARD (FIT-DNA) COLOGUARD (FIT-D NA) [facility] [place] Start: 1993 Colonoscopy COLONOSCOPY [facility] [place] Start: 1993 COLORECTAL CANCER SCREENING COLORECTAL CANCER SCREENING [facility] [place] Start: [address] COLONOGRAPHY [facility] Start: 1993 DIABETES SCREEN DIABETES SCREEN [facility] Start: 1993 FECAL OCCULT BLOOD FECAL OCCULT BLOO D [facility] [place] Start: 1993 LIPID SCREEN LIPID SCREEN [facility] [place] Start: 1993 Screening for malign ant neoplasm of colon [facility] Start: [address] [facility] Start: 1988 [facility]id [facility] Start: 1988 Mammography MAMMOGRAM [facility] [place] Start: 1967 DTaP/Tdap/Td vaccine (1 - Tdap) DTaP/Tdap/Td vaccine (1 - Tdap) [facility] Start: 1967 DTaP/Tdap/Td Vaccine s (1 - Tdap) DTaP/Tdap/Td Vaccines (1 - Tdap) [facility] Start: 1967 Urine microalbumin profile DTAP,TDAP,TD (1 - Tdap) [facility] [place] Start: 1966 Diabetes mellitus screening Diabetes Screening [facility] Start: 1966 HEPATITIS C SCREENING HEPATITIS C SC REENING [facility] [place] Start: 1966 Hepatitis C screening S [facility] Start: 1960 Adult depression screening assessment DEPRESSION SCREENING [facility] [place] Start: 1960 [facility] Depression Screen Depression Screen [facility] Start: 1953 COVID-19 Vaccine (1) COVID-19 Vaccin e (1) [facility] Start: 1948 COVID-19 Vaccine (#1) COVID-19 Vacci ne (#1) [facility] Start: 1948 Annual Wellness Visi t (AWV) Annual Wellness Visit (AWV) [facility] Start: 1948 Hepatitis C screening Hepatitis C sc reen [facility] Start: 1948 Lipid panel Lipid Panel [facility] Start: 1948 Medicare Advantage A nnual Wellness Visit (AWV) Medicare Advantage Annual Wellness Visit (AWV) [facility] Start: 1948 Screening for malign ant neoplasm of colon [facility] Start: 1948 Screening for osteoporosis Bone Density Scan [facility] Start: 1948 Thyroid stimulating hormone measurement TSH Level [facility] Anion gap measurement [facility] Anion gap measurement [facility] Anion gap measurement [facility] Anion gap measurement [facility] Anion gap measurement [facility] Anion gap measurement [facility] End: 09-17-2022 Bacteria identified in Urine by Culture [facility] Work Phone: Comment on above: One Time for 1 Occur rences starting 09/17/2022 until 09/17/2022 Bacteria identified in Urine by Culture Urine culture Microbiology Routine Burning with urination Ordered: 11/10/2023 [employer] Work Phone: Comment on above: Ordered: 11/10/2023 End: 02-19-2025 Bacteria identified in Urine by Culture [employer] Work Phone: Comment on above: Release Upon Orderin g for 1 Occurrences starting 02/19/2025 Once for 1 Occurrenc es starting 02/19/2025 until 02/19/2025 BUN/Creatinine ratio [facility] BUN/Creatinine ratio [facility] BUN/Creatinine ratio [facility] BUN/Creatinine ratio [facility] BUN/Creatinine ratio [facility] BUN/Creatinine ratio [facility] Calcium [Mass/volume ] in Serum or Plasma [facility] Calcium [Mass/volume ] in Serum or Plasma [facility] Calcium [Mass/volume ] in Serum or Plasma [facility] Calcium [Mass/volume ] in Serum or Plasma [facility] Calcium [Mass/volume ] in Serum or Plasma [facility] Calcium [Mass/volume ] in Serum or Plasma [facility] Carbon dioxide, tota l [Moles/volume] in Serum or Plasma [facility] Carbon dioxide, tota l [Moles/volume] in Serum or Plasma [facility] Carbon dioxide, tota l [Moles/volume] in Serum or Plasma [facility] Carbon dioxide, tota l [Moles/volume] in Serum or Plasma [facility] Carbon dioxide, tota l [Moles/volume] in Serum or Plasma [facility] Carbon dioxide, tota l [Moles/volume] in Serum or Plasma [facility] Chloride [Moles/volu me] in Serum or Plasma [facility] Chloride [Moles/volu me] in Serum or Plasma [facility] Chloride [Moles/volu me] in Serum or Plasma [facility] Chloride [Moles/volu me] in Serum or Plasma [facility] Chloride [Moles/volu me] in Serum or Plasma [facility] Chloride [Moles/volu me] in Serum or Plasma [facility] Creatinine [Moles/vo lume] in Serum or Plasma [facility] Creatinine [Moles/vo lume] in Serum or Plasma [facility] Creatinine [Moles/vo lume] in Serum or Plasma [facility] Creatinine [Moles/vo lume] in Serum or Plasma [facility] Creatinine [Moles/vo lume] in Serum or Plasma [facility] Creatinine [Moles/vo lume] in Serum or Plasma [facility] Cysto bladder w/uret eral catheterization CYSTOSCOPY, WITH RETROGRADE PYELOGRAM Renal calculus [facility] Cysto w/insert urete ral stent CYSTOSCOPY, WITH URETERAL STENT INSERTION Renal calculus [facility] Cysto w/ureteroscopy w/lithotripsy CYSTOURETEROSCOPY, WITH LITHOTRIPSY Renal calculus [facility] Operating Room EKG 12 Lead EKG 12 Lead ECG Routine 09/17/2022 9:57 AM EDT [facility] Work Phone: End: 03-12-2022 FL Greater Than 1 Hour [facility] Work Phone: Comment on above: Once for 1 Occurrenc es starting 03/12/2022 until 03/12/2022 Glucose [Mass/volume ] in Serum or Plasma [facility] Glucose [Mass/volume ] in Serum or Plasma [facility] Glucose [Mass/volume ] in Serum or Plasma [facility] Glucose [Mass/volume ] in Serum or Plasma [facility] Glucose [Mass/volume ] in Serum or Plasma [facility] Glucose [Mass/volume ] in Serum or Plasma [facility] Hematocrit [Volume Fraction] of Blood [facility] Hematocrit [Volume Fraction] of Blood [facility] Hematocrit [Volume Fraction] of Blood [facility] Hematocrit [Volume Fraction] of Blood [facility] Hematocrit [Volume Fraction] of Blood [facility] Hematocrit [Volume Fraction] of Blood [facility] Hemoglobin [Mass/vol ume] in Blood [facility] Hemoglobin [Mass/vol ume] in Blood [facility] Hemoglobin [Mass/vol ume] in Blood [facility] Hemoglobin [Mass/vol ume] in Blood [facility] Hemoglobin [Mass/vol ume] in Blood [facility] Hemoglobin [Mass/vol ume] in Blood [facility] Leukocytes [#/volume ] in Blood [facility] Leukocytes [#/volume ] in Blood [facility] Leukocytes [#/volume ] in Blood [facility] Leukocytes [#/volume ] in Blood [facility] Leukocytes [#/volume ] in Blood [facility] Leukocytes [#/volume ] in Blood [facility] Mean corpuscular hemoglobin concentration determination [facility] Mean corpuscular hemoglobin concentration determination [facility] Mean corpuscular hemoglobin concentration determination [facility] Mean corpuscular hemoglobin concentration determination [facility] Mean corpuscular hemoglobin concentration determination [facility] Mean corpuscular hemoglobin concentration determination [facility] Mean corpuscular hemoglobin determination [facility] Mean corpuscular hemoglobin determination [facility] Mean corpuscular hemoglobin determination [facility] Mean corpuscular hemoglobin determination [facility] Mean corpuscular hemoglobin determination [facility] Mean corpuscular hemoglobin determination [facility] Measurement of renal function [facility] Measurement of renal function [facility] Measurement of renal function [facility] Measurement of renal function [facility] Measurement of renal function [facility] Measurement of renal function [facility] Neutrophil count [facility] Neutrophil count [facility] Neutrophil count [facility] Neutrophil count [facility] Neutrophil count [facility] Neutrophil count [facility] Neutrophil percent differential count [facility] Neutrophil percent differential count [facility] Neutrophil percent differential count [facility] Neutrophil percent differential count [facility] Neutrophil percent differential count [facility] Neutrophil percent differential count [facility] OUTSIDE PROCEDURE SCAN OUTSIDE P ROCEDURE SCAN Procedures Ordered: 10/07/2023 [facility] [employer] [facility] Comment on above: Ordered: 10/07/2023 Oxygen therapy [[facility] Data Set] Initiate Oxygen Therapy Protocol Respiratory Care Routine As Needed until discontinued starting 03/12/2022 [facility] Work Phone: Comment on above: As Needed until disc ontinued starting 03/12/2022 Patient Education ED Head Injury (Adult) [facility] Work Phone: Patient referral [facility] Work Phone: Platelets [#/volume] in Blood [facility] Platelets [#/volume] in Blood [facility] Platelets [#/volume] in Blood [facility] Platelets [#/volume] in Blood [facility] Platelets [#/volume] in Blood [facility] Platelets [#/volume] in Blood [facility] Potassium [Moles/vol ume] in Serum or Plasma [facility] Potassium [Moles/vol ume] in Serum or Plasma [facility] Potassium [Moles/vol ume] in Serum or Plasma [facility] Potassium [Moles/vol ume] in Serum or Plasma [facility] Potassium [Moles/vol ume] in Serum or Plasma [facility] Potassium [Moles/vol ume] in Serum or Plasma [facility] Red blood cell count [facility] Red blood cell count [facility] Red blood cell count [facility] Red blood cell count [facility] Red blood cell count [facility] Red blood cell count [facility] Red cell distributio n width determination [facility] Red cell distributio n width determination [facility] Red cell distributio n width determination [facility] Red cell distributio n width determination [facility] Red cell distributio n width determination [facility] Red cell distributio n width determination [facility] Sodium [Moles/volume ] in Serum or Plasma [facility] Sodium [Moles/volume ] in Serum or Plasma [facility] Sodium [Moles/volume ] in Serum or Plasma [facility] Sodium [Moles/volume ] in Serum or Plasma [facility] Sodium [Moles/volume ] in Serum or Plasma [facility] Sodium [Moles/volume ] in Serum or Plasma [facility] Urea nitrogen [Mass/volume] in Serum or Plasma [facility] Urea nitrogen [Mass/volume] in Serum or Plasma [facility] Urea nitrogen [Mass/volume] in Serum or Plasma [facility] Urea nitrogen [Mass/volume] in Serum or Plasma [facility] Urea nitrogen [Mass/volume] in Serum or Plasma [facility] Urea nitrogen [Mass/volume] in Serum or Plasma [facility] End: 02-19-2025 Urine Hold Cup Urine Hold Cup Lab Routine Renal calculus Once for 1 Occurrences starting 02/19/2025 until 02/19/2025 [facility] Comment on above: Once for 1 Occurrenc es starting 02/19/2025 until 02/19/2025 End: 07-14-2022 XR ABDOMEN (KUB) (SINGLE AP VIEW) [employer] Work Phone: Comment on above: 1 Occurrences starti ng 07/14/2022 until 07/14/2022 End: 10-07-2023 XR Abdomen Single view [employer] Work Phone: Comment on above: Once for 1 Occurrenc es starting 10/07/2023 until 10/07/2023 [facility] Payers Date Payer Category Payer Medicaid HMO [employer]ESOBEE[employer]olly [place] [facility] MEDICAID ONLY [id number] 2025 Medicare HMO [id number] 2025 Medicare [id number] 2025 Medicare [id number] 2024 Medicaid [id number] 2024 Self-pay [id number] 2023 Unknown [id number] 2021 Medicare [id number]. [id number] 2021 Unknown [employer] S [employer] BL[employer] AN[employer]M MEDIBLUE HMO [id number] 2021-Present [phone] [address] [place] [address] HMO [id number]. [id number] 2014 Medicare [id number]. [id number] 1948 Unknown [id number] 2.16.840.1.181678.3.579.2.668 1948 Unknown [id number] 2.16.840.1.072320.3.579.2 1948 Unknown [id number] 2.16.840.1.963977.3.579.2 1948 Unknown [id number] 2.16.840.1.790669.3.579.2 1948 Unknown [id number] 2.16.840.1.101055.3.579.2 1948 Unknown [id number] 2.16.840.1.771626.3.579.2 1948 Unknown [id number] 2.16.840.1.735274.3.579.2 1948 Unknown [id number] 2.16.840.1.419961.3.579.2. 1948 Unknown [id number] 2.16.840.1.781439.3.579.2 1948 Unknown [id number] 2.16.840.1.664434.3.579.2 1948 Unknown [id number] 2.16.840.1.646183.3.579.2 1948 Unknown [id number] 2.16.840.1.528747.3.579.2.627 1948 Unknown [id number] 2.16.840.1.978758.3.579.2.627 1948 Unknown [id number] 2.16.840.1.262994.3.579.2.627 1948 Unknown [id number] 2.16.840.1.090243.3.579.2.627 1948 Unknown [id number] 2.16.840.1.478502.3.579.2.627 1948 Unknown [id number] 2.16.840.1.342825.3.579.2.627 1948 Unknown [id number] 2.16.840.1.896465.3.579.2.627 Unknown Unknown [id number] 2.16.840.1.737566.3.579.2.462 Unknown [id number] 2.16.840.1.352325.3.579.2.462 Unknown [id number] 2.16.840.1.700576.3.579.2.462 Unknown [id number] 2.16.840.1.278833.3.579.2.462 Unknown [id number] 2.16.840.1.739732.3.579.2.462 Unknown [id number] 2.16.840.1.082454.3.579.2.462 Unknown [id number] 2.16.840.1.103559.3.579.2.462 Unknown [id number] 2.16.840.1.063812.3.579.2.462 Social History Date Type Detail Facility Start: 07-24-2019 End: 12-28-2024 Never smoked tobacco (finding) [facility] Start: 1950 Sex Assigned At Female [facility] Start: 03-05-2022 End: 09-17-2022 Tobacco use and exposure Smokeless tobacco non-user [employer] Phone: Start: 03-12-2022 End: 02-19-2025 Alcohol intake Lifetime non-drinker (finding) [employer] Phone: Start: 03-05-2022 History SDOH Alcohol Frequency 1 [employer] Phone: Start: 1950 Sex Assigned At Not on file S [employer] Work Phone: Start: 03-02-2022 End: 09-17-2022 Exposure to SARS-CoV-2 (event) Not sure [facility] Start: 12-22-2022 Tobacco smoking stat [facility] Unknown if ever smoked [facility] Start: 11-16-2022 End: 02-19-2025 History of Social function [facility] [employer] Start: 11-16-2022 End: 02-19-2025 Tobacco use panel [facility] [employer] Within the last year , have you been afraid of your partner or ex-partner? No [facility] [employer] Start: 06-28-2022 End: 02-27-2025 Sex Female (finding) [facility] Medical Equipment Procedure Code Equipment Code Equipment Origin al Text Equipment Identifier Dates Stent Uret 6fr 2 6cm [facility] - [id number] Start: 12-06-2023 Stent Uret 6fr 2 6cm [facility] - [id number] Start: 01-06-2024 Stent Uret 6fr 2 6cm [facility] - [id number] Start: 02-19-2025 Goals Date Patient Goal Desired Activity /State Functional Status Date Assessment Result Facility 11-22-2023 Functional Status Awake, Resting [facility] 11-20-2023 Functional Status Independent [facility] 11-11-2023 Functional Status Awake, Resting [facility] 11-07-2023 Functional Status ID band on, Allergy Band on, Call device within reach, Bed in low position, Wheels locked, Upper/Half-Length side-rails up, Phone within reach, personal items within reach, Bedside Cart Locked, Visitor at bedside [facility] 11-03-2023 Functional Status Standard Safet y ID band on, Call device within reach, Bed in low position, Wheels locked, Upper/Half-Length side-rails up, Bedside Cart Locked, Safety level maintained [facility] 01-07-2023 Functional Status Home Living Ad ditional Information OBJECTIVE Vitals: BP 133/91 Posture: forward head posture Gait: amb with FWW, small step length Sensation: no abnormalities or asymmetries Edema: R calf 37.5cm, L calf 37.5 cm AROM: 5-106 PROM: 0-110 [facility] 12-30-2022 Functional status Ambulates;Up ad quincy [facility] Work Phone: Mental Status Date Assessment Result Facility 11-22-2023 Mental Status Oriented x 4 [facility] 11-20-2023 Mental Status Orientation Oriented x 4 [facility] 11-20-2023 Mental Status [facility] 11-11-2023 Mental Status Oriented x 4 [facility] 11-07-2023 Mental Status Oriented x 4 [facility] 11-03-2023 Mental Status Orientation Oriented x 4 [facility] 12-30-2022 Cognitive function Voice/Name [facility] Work Phone: Clinical Notes 09-15-2021 to 03-06-2025 Telephone Encounter - Luana Mark - 03/06/2025 10:52 AM EDTTelephone Encounter - Luana Mark - 03/06/2025 10:52 AM EDTTelephone Encounter - Pily Pulido - 03/06/2025 9:49 AM EDTAttachments Note Date & Type Note Facility 03-06-2025 Telephone encounter Note PT IS SCHEDULED FOR 02/26/26 SO THIS WILL HAVE A PRIOR AUTH DONE IN 1 YEAR FROM NOW. THANK YOU DDL [facility] 03-06-2025 Miscellaneous Notes PT IS SCHEDULED FOR 02/26/26 SO THIS WILL HAVE A PRIOR AUTH DONE IN 1 YEAR FROM NOW. THANK YOU DDL Your patient has been scheduled for their CT ABDOMEN PELVIS WO on 02-26-26 at [facility]. If testing requires an insurance authorization, the authorization must be in place 48 hours prior to the scheduled test or testing will be cancelled. Thank you, Central Scheduling documented in this encounter [facility] 03-06-2025 Telephone encounter Note Your patient has been scheduled for their CT ABDOMEN PELVIS WO on 02-26-26 at [facility]. If testing requires an insurance authorization, the authorization must be in place 48 hours prior to the scheduled test or testing will be cancelled. Thank you, Central Scheduling [facility] 03-06-2025 History of Present illness Narrative Images from the original note were not included. Cystoscopy Procedure Note Indications: Nephrolithiasis [N20.0] Pre-operative Diagnosis: prior right ureteroscopic laser lithotripsy w/ stent placement 02/20 Post-operative Diagnosis: same Procedure Details The risks, benefits, complications, treatment options, and expected outcomes were discussed with the patient. The patient concurred with the proposed plan, giving informed consent. Cystoscopy was performed today under local anesthesia, using sterile technique. The patient was placed on the office table, prepped with Betadine, and draped in the usual sterile fashion. A flexible cystoscope was used to perform this procedure. Findings: Anterior urethra: normal without strictures and without scarring. Bladder: Normal mucosa, without lesions, mild edema Ureteral stent was seen emanating from the right ureteral orifice. A stent removal was performed from the right side without complication Specimens: none Complications: None; patient tolerated the procedure well. Disposition: To home. Condition: stable Attending Attestation: I performed the procedure. Plan: Stent removed without issue Recurrent stone former, likely due to high ureteral insertion Prior MAG3 in 01/2024 showed no evidence of obstruction Discussed stone diet recommendations including increase water intake (>2.5L), low sodium diet, daily recommended calcium intake (1-1.2g), and animal protein in moderation. Prior stone analysis in 08/2022 - 10% Caox, 20% MAP, 70% CaPh) Will repeat CT in one year, consider CVAC for stone evacuation in the future Ashok Eastman M.D. Pt states she tolerates betadine prep well. UROJET 6 ML urethra [facility] [id number] LOT # [id number] EXPIRES 11/2026 ADMIN BY CHARAN DOBSON Pt tolerated well documented in this encounter [facility] 03-06-2025 Note Cystoscopy Procedure Note Indications: Nephrolithiasis [N20.0] Pre-operative Diagnosis: prior right ureteroscopic laser lithotripsy w/ stent placement 02/20 Post-operative Diagnosis: same Procedure Details The risks, benefits, complications, treatment options, and expected outcomes were discussed with the patient. The patient concurred with the proposed plan, giving informed consent. Cystoscopy was performed today under local anesthesia, using sterile technique. The patient was placed on the office table, prepped with Betadine, and draped in the usual sterile fashion. A flexible cystoscope was used to perform this procedure. Findings: Anterior urethra: normal without strictures and without scarring. Bladder: Normal mucosa, without lesions, mild edema Ureteral stent was seen emanating from the right ureteral orifice. A stent removal was performed from the right side without complication Specimens: none Complications: None; patient tolerated the procedure well. Disposition: To home. Condition: stable Attending Attestation: I performed the procedure. Plan: Stent removed without issue Recurrent stone former, likely due to high ureteral insertion Prior MAG3 in 01/2024 showed no evidence of obstruction Discussed stone diet recommendations including increase water intake (>2.5L), low sodium diet, daily recommended calcium intake (1-1.2g), and animal protein in moderation. Prior stone analysis in 08/2022 - 10% Caox, 20% MAP, 70% CaPh) Will repeat CT in one year, consider CVAC for stone evacuation in the future Ashok Eastman M.D. [facility] 02-22-2025 Telephone encounter Note Patient's son Colton called back in on this message. Colton states that patient is in an extended care [place] facility and they are giving patient the antibiotic as prescribed. Colton didn't have any further questions or concerns at this time. [facility] 02-22-2025 Miscellaneous Notes Patient's son Colton called back in on this message. Colton states that patient is in an extended care [place] facility and they are giving patient the antibiotic as prescribed. Colton didn't have any further questions or concerns at this time. Please inform patient of result when Pt/son returns call. ----- Message from ALONDRA Yap CNP sent at 02/22/2025 7:09 AM EDT ----- Let her know the antibiotic she is on should cover her UTI documented in this encounter [facility] 02-22-2025 Telephone encounter Note Please inform patient of result when Pt/son returns call. [facility] 02-22-2025 Telephone encounter Note ----- Message from ALONDRA Yap CNP sent at 02/22/2025 7:09 AM EDT ----- Let her know the antibiotic she is on should cover her UTI [facility] 02-20-2025 Telephone encounter Note Scheduled 03/06/25 @09:20am [address] [facility] 02-20-2025 Miscellaneous Notes Scheduled 03/06/25 @09:20am [address] Cysto, stent removal in 2 weeks documented in this encounter [facility] 02-19-2025 Nurse Note Pt ambulated to bathroom with assist, pain tolerable, free from nausea. Attempted to call report to Alvin Chun, message left for RN. Will send DC instructions home with pt and discharge instructions reviewed with pts son at bedside and copy of instructions also given to son. [facility] 02-19-2025 Miscellaneous Notes Pt ambulated to bathroom with assist, pain tolerable, free from nausea. Attempted to call report to Alvin Chun, message left for RN. Will send DC instructions home with pt and discharge instructions reviewed with pts son at bedside and copy of instructions also given to son. PreOp Dx Right renal calculi, Right UPJ obstruction PostOp Dx Same Operation Cystoscopy, retrograde pyelogram, flouroscopy, right ureteroscopy, laser lithotripsy, ureteral stent placement Surgeon Sarath Ramos MD Assist None EBL Minimal Drains 6 fr X 26cmJJ Gusman none Specimen urine culture Condition To PACU This is a 75 y.o. patient who presents with right renal calculi. After having a discussion on treatment options, risks and benefits, the patient wishes to proceed forward with surgical intervention Patient was brought to the operating room. A thorough time out was performed and everyone present was in agreement. Patient was placed on OR table. Anesthesia and lines were maintained by the anesthesia team. Patient was placed in the dorsal lithotomy position. Prepped and draped in usual fashion. Pressure points were padded. A cystourethroscope was inserted through the urethra and the bladder was inspected. Retrograde pyelograms were performed under fluoroscopic visualization on the right side. There was moderate hydronephrosis, and a UPJ obstruction due to high ureteral insertion A sensor wire was advanced to the level of the kidney. A 12/14 fr ureteral access sheath was advanced over the wire under fluoroscopy. A flexible ureteroscope was passed through the access sheath. The stones were visualized and laser lithotripsied using the holmium laser. It was noted there was no large stone fragments upon entering the kidney. There was however layering debris of tiny stone fragments in the mid, lower and upper pole These small stone debris was lasered using the TERESITA fiber to dust these further, and using aspiration through the ureteroscope some of the dust was able to be cleared A 6 fr X 26cmJJ was advanced over the wire through the cystoscope under fluoroscopic visualization. Once in position the wire was removed. A good curl was noted in the kidney and the bladder. The bladder was emptied and patient awoken from anesthesia. FU 1 week for stent removal She will likely to continue to develop laying debris in her kidney due to the UPJ obstruction, high ureteral insertion. If this would become symptomatic could consider CVAC to clear debris PRE-PROCEDURE ROUNDING COMPLETE. [phone] four times preop and was unable to speak with anyone on the phone to verify if patient took any medications this morning. Spoke with Mariela De Dios CRNA to let know I was unable to verify any meds at this time. ERAS meds adjusted. documented in this encounter [facility] 02-19-2025 Note Patient: Surinder Jain dler Procedure Summary Date: 02/19/25 Room / Location: [address] Operating Room Anesthesia Start: 1425 Anesthesia Stop: 1505 Procedures: CYSTOSCOPY, WITH RETROGRADE PYELOGRAM (Urethra) RIGHT URETEROSCOPY WITH HOLIUM LASER LITHOTRIPSY (Right: Urethra) RIGHT URETERAL STENT PLACEMENT (Right: Urethra) Diagnosis: Renal calculus Surgeons: Sarath Ramos MD Responsible Provider: Galdino Lujan MD Anesthesia Type: general ASA Status: 3 Anesthesia Type: general Vitals Value Taken Time BP 110/71 02/19/25 1505 Temp 37.2 ?C (98.9 ?F) 02/19/25 1505 Pulse 88 02/19/25 1510 Resp 16 02/19/25 1505 SpO2 95 % 02/19/25 1510 Vitals shown include unfiled device data. Anesthesia Post Evaluation Patient location during evaluation: PACU Patient participation: complete - patient participated Level of consciousness: awake and alert Pain management: satisfactory to patient Airway patency: patent Dental Injury: no Cardiovascular status: acceptable, blood pressure returned to baseline and hemodynamically stable Respiratory status: acceptable, spontaneous ventilation and room air Hydration status: euvolemic Nausea/Vomiting: controlled No notable events documented. Patient can be discharged once all PACU criteria has been met. [facility] 02-19-2025 Note Patient: Surinder Jain dler Procedure Summary Date: 02/19/25 Room / Location: [address] Operating Room Anesthesia Start: 1425 Anesthesia Stop: 1505 Procedures: CYSTOSCOPY, WITH RETROGRADE PYELOGRAM (Urethra) RIGHT URETEROSCOPY WITH HOLIUM LASER LITHOTRIPSY (Right: Urethra) RIGHT URETERAL STENT PLACEMENT (Right: Urethra) Diagnosis: Renal calculus Surgeons: Sarath Ramos MD Responsible Provider: Galdino Lujan MD Anesthesia Type: general ASA Status: 3 Anesthesia Type: general Vitals Value Taken Time BP 110/71 02/19/25 1505 Temp 37.2 ?C (98.9 ?F) 02/19/25 1505 Pulse 93 02/19/25 1509 Resp 16 02/19/25 1505 SpO2 97 % 02/19/25 1509 Vitals shown include unfiled device data. Anesthesia Post Evaluation Patient location during evaluation: PACU Patient participation: complete - patient participated Level of consciousness: awake and alert Pain score: 0 Pain management: satisfactory to patient Multimodal analgesia pain management approach Airway patency: patent Two or more strategies used to mitigate risk of obstructive sleep apnea Cardiovascular status: acceptable and hemodynamically stable Respiratory status: acceptable, spontaneous ventilation and room air Hydration status: acceptable No notable events documented. MIPS #430 PONV Patient received an inhalational anesthetic (4554F) Patient exhibits three or more risk factors for PONV (4556F) Patient received at leaset 2 prophylactic Rx PONV anti-emtic agents of different classes preop and/or intraop (G9775) MIPS # 424 Perioperative Temperature Management Anesthesia time was less than 60 minutes (4256F) MIPS #477 Multimodal Pain Management Not emergent case Patient was not administered multimodal pain management (G2149) Patient reports no pain in PACU (G2149) MIPS #404 Anesthesiology Smoking Abstinence The patient is not a current smoker (e.g. cigarette, cigar, pipe, e-cigarette/vaping/marijuana) If no stop here (XX404) I completed my handoff to the receiving clinician during which we: 1. Identified the patient 2. Identified the responsible provider 3. Reviewed the pertinent medical history 4. Discussed the surgical course 5. Reviewed intra-op anesthesia management and issues during anesthesia 6. Set expectations for post-procedure period 7. Allowed opportunity for questions and acknowledgement of understanding. [facility] 02-19-2025 Telephone encounter Note Cysto, stent removal in 2 weeks [facility] 02-19-2025 Note Airway Date/Time: 02/19/2025 2:31 PM Urgency: scheduled Airway not difficult General Information and Staff Patient location during procedure: Procedural Resident/RUG BACKING STENCILER: Monica Briones APRN - RUG BACKING STENCILER Performed: RUG BACKING STENCILER Indications and Patient Condition Indications for airway management: anesthesia Sedation level: Asleep Preoxygenated: yes Patient position: sniffing Mask difficulty assessment: 0 - not attempted Final Airway Details Final airway type: supraglottic airway Successful airway: Igel Size 4 Number of attempts at approach: 1 Number of other approaches attempted: 0 [facility] 02-19-2025 Procedure note PreOp Dx Right renal calculi, Right UPJ obstruction PostOp Dx Same Operation Cystoscopy, retrograde pyelogram, flouroscopy, right ureteroscopy, laser lithotripsy, ureteral stent placement Surgeon Sarath Ramos MD Assist None EBL Minimal Drains 6 fr X 26cmJJ Gusman none Specimen urine culture Condition To PACU This is a 75 y.o. patient who presents with right renal calculi. After having a discussion on treatment options, risks and benefits, the patient wishes to proceed forward with surgical intervention Patient was brought to the operating room. A thorough time out was performed and everyone present was in agreement. Patient was placed on OR table. Anesthesia and lines were maintained by the anesthesia team. Patient was placed in the dorsal lithotomy position. Prepped and draped in usual fashion. Pressure points were padded. A cystourethroscope was inserted through the urethra and the bladder was inspected. Retrograde pyelograms were performed under fluoroscopic visualization on the right side. There was moderate hydronephrosis, and a UPJ obstruction due to high ureteral insertion A sensor wire was advanced to the level of the kidney. A 12/14 fr ureteral access sheath was advanced over the wire under fluoroscopy. A flexible ureteroscope was passed through the access sheath. The stones were visualized and laser lithotripsied using the holmium laser. It was noted there was no large stone fragments upon entering the kidney. There was however layering debris of tiny stone fragments in the mid, lower and upper pole These small stone debris was lasered using the TERESITA fiber to dust these further, and using aspiration through the ureteroscope some of the dust was able to be cleared A 6 fr X 26cmJJ was advanced over the wire through the cystoscope under fluoroscopic visualization. Once in position the wire was removed. A good curl was noted in the kidney and the bladder. The bladder was emptied and patient awoken from anesthesia. FU 1 week for stent removal She will likely to continue to develop laying debris in her kidney due to the UPJ obstruction, high ureteral insertion. If this would become symptomatic could consider CVAC to clear debris [facility] 02-19-2025 Note PRE-PROCEDURE ROUNDING COMPLETE. [facility] 02-19-2025 Nurse Note PRE-PROCEDURE ROUNDING COMPLETE. [facility] 02-19-2025 Attending History and physical note H&P reviewed. The patient was examined and there are no changes to the H&P. Source Note - Sana Crowder APRN - KEVIN - 02/15/2025 9:30 AM EDT Images from the original note were not included. Comprehensive Pre Surgical History and Physical ? Name: Surinder Rasheed : 1950 (Age-75 y.o.) Date of Service: Pt seen/examined on 02/15/2025 Procedure Information Date/Time: 02/19/25 1330 Procedures: CYSTOSCOPY, WITH RETROGRADE PYELOGRAM (Urethra) - 90 min RIGHT URETEROSCOPY WITH HOLIUM LASER LITHOTRIPSY (Right: Urethra) RIGHT URETERAL STENT PLACEMENT (Right: Urethra) Location: [address] Operating Room Surgeons: Sarath Ramos MD Chief Complaint: Renal calculus [N20.0] ASSESSMENT/PLAN: This surgery is considered a intermediate level 1 risk procedure/surgery () with no reducible risk factors. Based on the above evaluation, the benefits of the planned procedure likely exceed the risks. The patient is medically optimized to proceed with the planned procedure without any further cardiopulmonary testing. 1) Renal calculus [N20.0] - Managed per surgery - Orders per PAT Protocol: EKG, cbc, bmp - METS > 4 2) HTN (hypertension) - MEDS: [email or web address] BP Readings from Last 3 Encounters: 02/15/25 121/80 02/07/25 130/68 01/06/24 134/79 - patient denies chest pain, SOB, dizziness, blurred vision - encouraged lifestyle modification - Managed by Dr. Newberry - Ordered EKG and BMP in PAT 3) GERD - MEDS: PPI - stable -avoidance of triggers encouraged - Managed by Dr. Newberry 4) mitral valve prolapse, rheumatic heart disease (as a child) - normal stress echo in 2021 - mild-mod mitral regurgitation - asymptomatic 5) Hypothyroidism - Treated with medication: Yes, With: synthroid, and Managed by: Dr. Newberry 6) Hypercholesteremia - MEDS: -Managed by Dr. Newberry - lifestyle modifications encouraged Visit Type: Pre-Admission Testing Visit Labs Ordered: YES - PER PAT PROTOCOL Sleep Referral Ordered: NO - NEGATIVE SCREEN PER SLEEP REFERRAL PROTOCOL Total time spent (which include face to face and non face to face encounters) : 30 minutes Toxic drug monitoring/narrow therapeutic index drug monitoring : # Drug name : multiple # Route administered : PO # Method of monitoring : labs, ekg PAT Protocol referenced includes: 1. Anesthesia Lab Protocol Orders 2. Perioperative Cardiovascular Risk Assessment 3. Anesthesia Assessment 4. Pain Assessment and Acute Pain Service Consult (if appropriate) 5. Medical Clearance/Consult from Internal Medicine ([facility]) 6. Shower/Wash Order (for designated surgeries) 7. BRIT Screen and Sleep Clinic Referral (if appropriate) History Of Present Illness: 75 y.o. female who we are asked to see/evaluate by [facility] 03 for pre-operative evaluation prior to ? CYSTOSCOPY, WITH RETROGRADE PYELOGRAM (Urethra) - 90 min RIGHT URETEROSCOPY WITH HOLIUM LASER LITHOTRIPSY (Right: Urethra) RIGHT URETERAL STENT PLACEMENT (Right: Urethra) From last office visit with [facility] PA-C and Dr. Ramos on 02/07/25: "Surinder is a 75 y.o. 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 The patient had surgery with Dr. Ramos on 01/06/2024 for her kidney stones. The patient had a CT abdomen pelvis without IV contrast on 01/29/2025 resulting in bilateral renal calculi, larger in size and number on the right. Multiple right kidney stones largest measuring about 1.1cm in mid to lower pole. No hydroureteronephrosis. The patient denies dysuria, gross hematuria, flank pain, pelvic pain, fever or chills. Patient denies urinary urgency and frequency. The patient's son stated while she is living at her facility it is hard to focus on a kidney stone diet. Assessment and Plan: Surinder is a 75 y.o. female with history of kidney stones Diagnosis Plan 1. Right kidney stone Bladder scan Urine culture Urine culture Right kidney stone -Discussed her plan with Trenton Garrett, JEF, MICROBIOLOGY INSTRUCTOR, ANDREWP -multiple kidney stones largest measuring about 1.1cm in the right mid to lower pole seen on CT abdomen pelvis without IV contrast on 01/29/2025. There was no hydronephrosis. -We discussed that this may take multiple procedures to get the stone -Patient was advised to present to local Emergency Department for development of fevers, chills, nausea, vomiting or flank pain that is not controlled with oral pain medication I discussed the procedure of URETEROSCOPY +/- LASER LITHOTRIPSY. I discussed the risks, benefits and alternatives to this. I discussed the possible complications which could include but are not limited to bleeding, infection, pain, damage to urethra/bladder/ureter, need for additional procedures, and stricture disease. I discussed the possible need for stenting. I explained the need for stent and duration will be determined at that time of surgery. A string may or may not be left. I explained laser lithotripsy as well including risks of bleeding, infection, and damage to kidney or ureter. I explained this and compared and contrasted it to other procedures such as ESWL and PCNL. She understands this and wishes to proceed with right ureteroscopy with laser lithotripsy and stone manipulation. Patient denies exertional chest pain/shortness of breath. Denies dizziness, syncope, lightheadedness. Denies fever, chills, weakness or fatigue. Patient denies any recent illness, infections, or wounds. Patient denies abdominal pain, nausea, vomiting, diarrhea, or constipation. 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 No date: Irritable bowel syndrome No date: Kidney stone No date: Left ventricular failure (HCC) No date: Mitral valve disorder Comment: prolapse No date: Pulmonary HTN (HCC) No date: Thyroid disease Comment: hypothyroidism Past Surgical History: Past Surgical History: No date: BLADDER SURGERY Comment: prolapse No date: COLONOSCOPY 01/06/2024: CYSTOSCOPY; N/A Comment: CYSTOSCOPY AND PYELOGRAM, RIGHT URETEROSCOPY HOLMIUM LASER LITHOTRIPSY, RIGHT URETERAL STENT CHANGE No date: EYE SURGERY; Bilateral Comment: cataract No date: HYSTERECTOMY 03/12/2022: OTHER SURGICAL HISTORY; Right Comment: Percutaneous nephrolithotomy with JJ stent placemet 03/12/2022: OTHER SURGICAL HISTORY; Right Comment: Neph Tube Placement 09/24/2022: PERCUTANEOUS NEPHROLITHOTRIPSY; Left 11/2022: TOTAL KNEE ARTHROPLASTY; Right 09/24/2022: US NEPHROURETREAL CATHETER PLACEMENT NEW ACCESS (HISTORICAL); Left Medications Prior to Admission: Prior to Admission medications Medication Sig Start Date End Date Taking? Authorizing Provider acetaminophen (Tylenol) 325 MG tablet Take by mouth every 6 hours as needed. 11/22/17 Historical Provider, amLODIPine (Norvasc) 5 MG tablet Take 5 mg by mouth daily. 02/22/22 05/13/24 Historical Provider, ascorbic acid (Vitamin C) 500 mg chewable tablet Chew 500 mg. 11/07/23 Historical Provider, levothyroxine (Synthroid, Levoxyl) 112 MCG tablet Take 100 mcg by mouth every morning (before breakfast). 11/25/21 Historical Provider, LORazepam (Ativan) 0.5 MG tablet Take 0.5 mg by mouth in the morning and 0.5 mg before bedtime. 06/10/15 Historical Provider, losartan (Cozaar) 25 MG tablet Take 50 mg by mouth daily. 06/03/21 05/13/24 Historical Provider, pantoprazole (ProtoNix) 40 MG EC tablet Take 40 mg by mouth Daily as needed. 11/19/21 Historical Provider, CHRONIC NARCOTIC USE: No Do you have a history of chronic opioid use? No Allergies: Cyclobenzaprine, Prednisone, Promethazine, Statins, Hydrocodone, Lisinopril, and Sulfa antibiotics Patient has hydrocodone opioid allergy. Is it okay to take Acetaminophen: Yes Social History: TOBACCO: reports that she has never smoked. She has never used smokeless tobacco. ETOH: reports no history of alcohol use. Social History Substance and Sexual Activity Drug Use Never Family History: No family history on file. REVIEW OF SYSTEMS: Review of Systems Constitutional: Negative. Negative for chills, diaphoresis and fever. HENT: Negative. Negative for facial swelling, sore throat and trouble swallowing. Respiratory: Negative. Negative for apnea, cough, chest tightness, shortness of breath and wheezing. Cardiovascular: Negative. Negative for chest pain, palpitations and leg swelling. Gastrointestinal: Negative for diarrhea, nausea and vomiting. Genitourinary: Negative. Negative for dysuria. Musculoskeletal: Negative. Skin: Negative for color change, pallor, rash and wound. Neurological: Negative. Psychiatric/Behavioral: Negative. Negative for hallucinations, self-injury and suicidal ideas. All other systems reviewed and are negative. Physical Exam: Physical Exam Vitals and nursing note reviewed. Constitutional: General: She is not in acute distress. Appearance: She is not ill-appearing or toxic-appearing. HENT: Head: Normocephalic and atraumatic. Nose: Nose normal. Mouth/Throat: Mouth: Mucous membranes are moist. Eyes: Pupils: Pupils are equal, round, and reactive to light. Neck: Vascular: No carotid bruit. Cardiovascular: Rate and Rhythm: Normal rate and regular rhythm. Pulses: Normal pulses. Heart sounds: Normal heart sounds. No murmur heard. No friction rub. No gallop. Pulmonary: Effort: Pulmonary effort is normal. No respiratory distress. Breath sounds: Normal breath sounds. No wheezing. Abdominal: General: Abdomen is flat. Palpations: Abdomen is soft. Tenderness: There is no abdominal tenderness. Musculoskeletal: General: Normal range of motion. Cervical back: Normal range of motion and neck supple. No rigidity or tenderness. Lymphadenopathy: Cervical: No cervical adenopathy. Skin: General: Skin is warm and dry. Capillary Refill: Capillary refill takes less than 2 seconds. Neurological: General: No focal deficit present. Mental Status: She is alert and oriented to person, place, and time. Cranial Nerves: No cranial nerve deficit. Psychiatric: Mood and Affect: Mood normal. Behavior: Behavior normal. Vitals: Vitals Value Taken Time BP 121/80 02/15/25 0933 Temp 36.2 C (97.2 F) 02/15/25 09 Pulse 78 02/15/25 09 Resp 15 02/15/25 09 SpO2 98 % 02/15/25932 Labs: Lab Results Component Value Date WBC 4.5 12/02/2023 HGB 11.6 (L) 12/02/2023 HCT 33.6 (L) 12/02/2023 MCV 99.4 (H) 12/02/2023 PLT 262 12/02/2023 Lab Results Component Value Date NA 140 12/02/2023 K 3.5 12/02/2023 CL 107 12/02/2023 CO2 28 12/02/2023 BUN 14 12/02/2023 CREATININE 0.76 12/02/2023 GLUCOSE 91 12/02/2023 CALCIUM 9.7 12/02/2023 EGFR 81.8 12/02/2023 PAT Pain Score: Postop Pain Management Plan (Pain consult ordered?): Pain consult not indicated at this time ? EKG: Encounter Date: 02/15/25 ECG 12 lead Result Value Heart Rate 78 QRSD Interval 107 QT Interval 361 QTC Interval 392 P Mcconnell 20 QRS Mcconnell -25 T Wave M[place]onnell 30 [place] Interval 202 Impression Sinus rhythm Atrial premature complexes in couplets Left ventricular hypertrophy Inferior infarct, old Anterior infarct, old ECHO and EF:None on file METS: > 4 Electronically signed by: ALONDRA Larson CNP Date: 02/15/2025 at 11:21 AM Cosigned by Sarath Hunt DO at 02/16/2025 8:34 PM EDT [facility] Work Phone: 02-19-2025 History and physical note H&P reviewed. The patient was examined and there are no changes to the H&P. Source Note - Sana Crowder APRN - TOW DRIVER - 02/15/2025 9:30 AM EDT Images from the original note were not included. Comprehensive Pre Surgical History and Physical ? Name: Surinder Rasheed : 1950 (Age-75 y.o.) Date of Service: Pt seen/examined on 02/15/2025 Procedure Information Date/Time: 02/19/25 1330 Procedures: CYSTOSCOPY, WITH RETROGRADE PYELOGRAM (Urethra) - 90 min RIGHT URETEROSCOPY WITH HOLIUM LASER LITHOTRIPSY (Right: Urethra) RIGHT URETERAL STENT PLACEMENT (Right: Urethra) Location: [address] Operating Room Surgeons: Sarath Ramos MD Chief Complaint: Renal calculus [N20.0] ASSESSMENT/PLAN: This surgery is considered a intermediate level 1 risk procedure/surgery () with no reducible risk factors. Based on the above evaluation, the benefits of the planned procedure likely exceed the risks. The patient is medically optimized to proceed with the planned procedure without any further cardiopulmonary testing. 1) Renal calculus [N20.0] - Managed per surgery - Orders per PAT Protocol: EKG, cbc, bmp - METS > 4 2) HTN (hypertension) - MEDS: lorraine stout BP Readings from Last 3 Encounters: 02/15/25 121/80 02/07/25 130/68 01/06/24 134/79 - patient denies chest pain, SOB, dizziness, blurred vision - encouraged lifestyle modification - Managed by Dr. Newberry - Ordered EKG and BMP in PAT 3) GERD - MEDS: PPI - stable -avoidance of triggers encouraged - Managed by Dr. Newberry 4) mitral valve prolapse, rheumatic heart disease (as a child) - normal stress echo in 2021 - mild-mod mitral regurgitation - asymptomatic 5) Hypothyroidism - Treated with medication: Yes, With: synthroid, and Managed by: Dr. Newberry 6) Hypercholesteremia - MEDS: -Managed by Dr. Newberry - lifestyle modifications encouraged Visit Type: Pre-Admission Testing Visit Labs Ordered: YES - PER PAT PROTOCOL Sleep Referral Ordered: NO - NEGATIVE SCREEN PER SLEEP REFERRAL PROTOCOL Total time spent (which include face to face and non face to face encounters) : 30 minutes Toxic drug monitoring/narrow therapeutic index drug monitoring : # Drug name : multiple # Route administered : PO # Method of monitoring : labs, ekg PAT Protocol referenced includes: 1. Anesthesia Lab Protocol Orders 2. Perioperative Cardiovascular Risk Assessment 3. Anesthesia Assessment 4. Pain Assessment and Acute Pain Service Consult (if appropriate) 5. Medical Clearance/Consult from Internal Medicine ([facility]) 6. Shower/Wash Order (for designated surgeries) 7. BRIT Screen and Sleep Clinic Referral (if appropriate) History Of Present Illness: 75 y.o. female who we are asked to see/evaluate by [place] [id number] for pre-operative evaluation prior to ? CYSTOSCOPY, WITH RETROGRADE PYELOGRAM (Urethra) - 90 min RIGHT URETEROSCOPY WITH HOLIUM LASER LITHOTRIPSY (Right: Urethra) RIGHT URETERAL STENT PLACEMENT (Right: Urethra) From last office visit with [facility] Wayne PA-C and Dr. Ramos on 02/07/25: "Surinder is a 75 y.o. 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 The patient had surgery with Dr. Ramos on 01/06/2024 for her kidney stones. The patient had a CT abdomen pelvis without IV contrast on 01/29/2025 resulting in bilateral renal calculi, larger in size and number on the right. Multiple right kidney stones largest measuring about 1.1cm in mid to lower pole. No hydroureteronephrosis. The patient denies dysuria, gross hematuria, flank pain, pelvic pain, fever or chills. Patient denies urinary urgency and frequency. The patient's son stated while she is living at her facility it is hard to focus on a kidney stone diet. Assessment and Plan: Surinder is a 75 y.o. female with history of kidney stones Diagnosis Plan 1. Right kidney stone Bladder scan Urine culture Urine culture Right kidney stone -Discussed her plan with Trenton Garrett, JEF, MICROBIOLOGY INSTRUCTOR, ANDREWP -multiple kidney stones largest measuring about 1.1cm in the right mid to lower pole seen on CT abdomen pelvis without IV contrast on 01/29/2025. There was no hydronephrosis. -We discussed that this may take multiple procedures to get the stone -Patient was advised to present to local Emergency Department for development of fevers, chills, nausea, vomiting or flank pain that is not controlled with oral pain medication I discussed the procedure of URETEROSCOPY +/- LASER LITHOTRIPSY. I discussed the risks, benefits and alternatives to this. I discussed the possible complications which could include but are not limited to bleeding, infection, pain, damage to urethra/bladder/ureter, need for additional procedures, and stricture disease. I discussed the possible need for stenting. I explained the need for stent and duration will be determined at that time of surgery. A string may or may not be left. I explained laser lithotripsy as well including risks of bleeding, infection, and damage to kidney or ureter. I explained this and compared and contrasted it to other procedures such as ESWL and PCNL. She understands this and wishes to proceed with right ureteroscopy with laser lithotripsy and stone manipulation. Patient denies exertional chest pain/shortness of breath. Denies dizziness, syncope, lightheadedness. Denies fever, chills, weakness or fatigue. Patient denies any recent illness, infections, or wounds. Patient denies abdominal pain, nausea, vomiting, diarrhea, or constipation. 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 No date: Irritable bowel syndrome No date: Kidney stone No date: Left ventricular failure (HCC) No date: Mitral valve disorder Comment: prolapse No date: Pulmonary HTN (HCC) No date: Thyroid disease Comment: hypothyroidism Past Surgical History: Past Surgical History: No date: BLADDER SURGERY Comment: prolapse No date: COLONOSCOPY 01/06/2024: CYSTOSCOPY; N/A Comment: CYSTOSCOPY AND PYELOGRAM, RIGHT URETEROSCOPY HOLMIUM LASER LITHOTRIPSY, RIGHT URETERAL STENT CHANGE No date: EYE SURGERY; Bilateral Comment: cataract No date: HYSTERECTOMY 03/12/2022: OTHER SURGICAL HISTORY; Right Comment: Percutaneous nephrolithotomy with JJ stent placemet 03/12/2022: OTHER SURGICAL HISTORY; Right Comment: Neph Tube Placement 09/24/2022: PERCUTANEOUS NEPHROLITHOTRIPSY; Left 11/2022: TOTAL KNEE ARTHROPLASTY; Right 09/24/2022: US NEPHROURETREAL CATHETER PLACEMENT NEW ACCESS (HISTORICAL); Left Medications Prior to Admission: Prior to Admission medications Medication Sig Start Date End Date Taking? Authorizing Provider acetaminophen (Tylenol) 325 MG tablet Take by mouth every 6 hours as needed. 11/22/17 Historical Provider, amLODIPine (Norvasc) 5 MG tablet Take 5 mg by mouth daily. 02/22/22 05/13/24 Historical Provider, ascorbic acid (Vitamin C) 500 mg chewable tablet Chew 500 mg. 11/07/23 Historical Provider, levothyroxine (Synthroid, Levoxyl) 112 MCG tablet Take 100 mcg by mouth every morning (before breakfast). 11/25/21 Historical Provider, LORazepam (Ativan) 0.5 MG tablet Take 0.5 mg by mouth in the morning and 0.5 mg before bedtime. 06/10/15 Historical Provider, losartan (Cozaar) 25 MG tablet Take 50 mg by mouth daily. 06/03/21 05/13/24 Historical Provider, pantoprazole (ProtoNix) 40 MG EC tablet Take 40 mg by mouth Daily as needed. 11/19/21 Historical Provider, CHRONIC NARCOTIC USE: No Do you have a history of chronic opioid use? No Allergies: Cyclobenzaprine, Prednisone, Promethazine, Statins, Hydrocodone, Lisinopril, and Sulfa antibiotics Patient has hydrocodone opioid allergy. Is it okay to take Acetaminophen: Yes Social History: TOBACCO: reports that she has never smoked. She has never used smokeless tobacco. ETOH: reports no history of alcohol use. Social History Substance and Sexual Activity Drug Use Never Family History: No family history on file. REVIEW OF SYSTEMS: Review of Systems Constitutional: Negative. Negative for chills, diaphoresis and fever. HENT: Negative. Negative for facial swelling, sore throat and trouble swallowing. Respiratory: Negative. Negative for apnea, cough, chest tightness, shortness of breath and wheezing. Cardiovascular: Negative. Negative for chest pain, palpitations and leg swelling. Gastrointestinal: Negative for diarrhea, nausea and vomiting. Genitourinary: Negative. Negative for dysuria. Musculoskeletal: Negative. Skin: Negative for color change, pallor, rash and wound. Neurological: Negative. Psychiatric/Behavioral: Negative. Negative for hallucinations, self-injury and suicidal ideas. All other systems reviewed and are negative. Physical Exam: Physical Exam Vitals and nursing note reviewed. Constitutional: General: She is not in acute distress. Appearance: She is not ill-appearing or toxic-appearing. HENT: Head: Normocephalic and atraumatic. Nose: Nose normal. Mouth/Throat: Mouth: Mucous membranes are moist. Eyes: Pupils: Pupils are equal, round, and reactive to light. Neck: Vascular: No carotid bruit. Cardiovascular: Rate and Rhythm: Normal rate and regular rhythm. Pulses: Normal pulses. Heart sounds: Normal heart sounds. No murmur heard. No friction rub. No gallop. Pulmonary: Effort: Pulmonary effort is normal. No respiratory distress. Breath sounds: Normal breath sounds. No wheezing. Abdominal: General: Abdomen is flat. Palpations: Abdomen is soft. Tenderness: There is no abdominal tenderness. Musculoskeletal: General: Normal range of motion. Cervical back: Normal range of motion and neck supple. No rigidity or tenderness. Lymphadenopathy: Cervical: No cervical adenopathy. Skin: General: Skin is warm and dry. Capillary Refill: Capillary refill takes less than 2 seconds. Neurological: General: No focal deficit present. Mental Status: She is alert and oriented to person, place, and time. Cranial Nerves: No cranial nerve deficit. Psychiatric: Mood and Affect: Mood normal. Behavior: Behavior normal. Vitals: Vitals Value Taken Time BP 121/80 02/15/25932 Temp 36.2 C (97.2 F) 02/15/25932 Pulse 78 02/15/25932 Resp 15 02/15/25932 SpO2 98 % 02/15/25932 Labs: Lab Results Component Value Date WBC 4.5 12/02/2023 HGB 11.6 (L) 12/02/2023 HCT 33.6 (L) 12/02/2023 MCV 99.4 (H) 12/02/2023 PLT 262 12/02/2023 Lab Results Component Value Date NA 140 12/02/2023 K 3.5 12/02/2023 CL 107 12/02/2023 CO2 28 12/02/2023 BUN 14 12/02/2023 CREATININE 0.76 12/02/2023 GLUCOSE 91 12/02/2023 CALCIUM 9.7 12/02/2023 EGFR 81.8 12/02/2023 PAT Pain Score: Postop Pain Management Plan (Pain consult ordered?): Pain consult not indicated at this time ? EKG: Encounter Date: 02/15/25 ECG 12 lead Result Value Heart Rate 78 QRSD Interval 107 QT Interval 361 QTC Interval 392 P Mcconnell 20 QRS Mcconnell -25 T Wave Mcconnell 30 [place] Interval 202 Impression Sinus rhythm Atrial premature complexes in couplets Left ventricular hypertrophy Inferior infarct, old Anterior infarct, old ECHO and EF:None on file METS: > 4 Electronically signed by: ALONDRA Larson CNP Date: 02/15/2025 at 11:21 AM Cosigned by Sarath Hunt DO at 02/16/2025 8:34 PM EDT documented in this encounter [facility] 02-19-2025 Note H&P reviewed. The vianey bess was examined and there are no changes to the H&P. [facility] 02-19-2025 Nurse Note Attempted to call [facility] at [phone] four times preop and was unable to speak with anyone on the phone to verify if patient took any medications this morning. Spoke with Mariela De Dios CRNA to let know I was unable to verify any meds at this time. ERAS meds adjusted. [facility] 02-18-2025 Hospital Discharge instructions Farhana Quach MD - 02/18/2025 3:19 PM EDT Laser Lithotripsy These are general instructions for you to follow after your surgery. Your doctor or a member of his or her staff will outline any additional or special instructions that pertain to you. What is a Laser Lithotripsy? A laser lithotripsy is a method for using lasers to remove stones that are located in the urinary tract. This could include stones in the bladder, kidneys, ureters, or urethra. A small flexible camera called a ureteroscope is inserted into the urethra and up the ureter until it reaches the location of the kidney stone. The doctor can then use a laser to break up a kidney stone and a small basket to remove small stones or stone fragments. A ureteral stent is often left in place after the procedure to help with healing. What are the advantages of laser lithotripsy? Laser lithotripsy is a minimally invasive procedure, and does not involve any incisions. It has been shown to be effective no matter the size, location, and/ or hardness of the stone. It also reduces the risk of steinstrasse (where several stones fragments line up in the ureter and block urine flow). How long does surgery take? Surgery will take 1-2 hours to complete. Will I have to stay in the hospital? No. This is an outpatient procedure, so you should be able to go home the same day that the procedure is performed. Are there risks with a laser lithotripsy procedure? There are risks with any surgical procedure. Risks of laser lithotripsy in particular include pain, blood in the urine, difficulty urinating, injury to the bladder or ureters when removing the stone, and infection. Sometimes it is not possible to reach the stone and stent will be placed and a second surgery will need to be scheduled. General anesthesia also has the risk of breathing problems, heart attack and stroke in patients who are high risk. Before Surgery: - A packet of information will be sent to you. It contains helpful information, details about how to prepare for surgery, and where to arrive on the day of surgery. Maps and local hotel information are sent to persons from out of town. If you have questions or have not received this information, please call our office at . - Most patients having surgery will need a physical completed to clear them medically for surgery. Pre-operative testing is completed approx. 1-2 weeks before your planned surgery. These tests will be done either at your pre-operative day at [facility], [facility], or with your regular doctor. - Some patients may require additional testing such as a stress test or cardiac clearance. - At the time of your pre-operative visit the following tests may be completed: Blood work, an EKG, and/ or a Chest X-ray - The day before your surgery you will need to call the surgical scheduling office to confirm your arrival time. - Do NOT eat or drink anything after midnight the night before your surgery. Medications: - Your information packet will contain a list of medications that need to be stopped before surgery. - Stop taking all herbal remedies 2 weeks before your surgery. - Please make certain that we know if you take medication that affected bleeding or is a blood thinner. Examples of these include Coumadin, Warfarin or Plavix. A safe plan will need to be made about how and when you take this medication near the time of your surgery. The Day of Surgery - Please report to the designated area at your confirmed arrival time. - Before you are taken to the operating room, you will change into a gown and have an IV started. - An anesthesiologist will come speak with you about the surgery and answer any questions that you may have. - Your family may stay with you in the pre-op area until you are taken to the operating room. Home Going Instructions: Activity: You are encouraged to walk every day, increasing the distance each day. You may go up and down steps, but please rest when you are tired. - Do NOT drive for 2-3 days after surgery or until you are not taking pain medications. You may ride in a car or plane. Be sure to get up and walk every 1-2 hours when traveling long distances. - Avoid strenuous activity for 1-2 days after surgery (running, jumping, lifting more than 10 lbs.) After that, NO limitations regarding lifting. Diet and Fluid Intake: Eating a well balanced diet is important. If you were on a specific diet before your surgery, you should return to that diet. Otherwise, there are no diet restrictions after surgery. Do NOT drink alcoholic beverages while taking pain medications. Drink at least 8 glasses of fluid per day, preferably water. Bowel Management: Constipation sometimes occurs after surgery, especially when taking pain medication. Eating a well-balanced diet and maintaining a good fluid intake are often all that is necessary to return to you pre-surgical bowel regimen. It is important not to strain excessively when having a bowel movement for the first several weeks following your surgery. A stool softener such as Colace may be helpful. You can purchase stool softeners without a prescription at your local drug store. If a stool softener is not enough to relieve your constipation, you may try taking Milk of Magnesia. You may use over the counter medicine, such a Gas-X, if you experience gas pains after surgery. Ureteral Stent: Most people experience some discomfort with a stent in place. Common symptoms include back pain, urinary frequency and urgency. Some people report burning with urination as well. You may see some blood off and on in your urine, especially after you are active. While these symptoms are common with a stent, if you are having a lot of pain that is not controlled with oral medications, please call our office to discuss your symptoms. Showering: You may shower when you get home from the hospital. Ok to swim and use a tub as well as long as the stent placed does not have a string attached. Pain Medications: Your doctor will prescribe the appropriate pain medication for you. Take these pills only as directed and only if you need them. If you are experiencing mild discomfort, you should take Tylenol or Ibuprofen. NEVER mix alcohol with prescription pain medications. Pain medication may make you drowsy. Do not take pain medication when doing any activity that requires coordination, such as driving. Infection: Report the following warning signs of infection to your doctor immediately: A temperature of 100.4 degrees or greater --> Proceed to ER immediately Unable to urinate. Sudden onset of increased pain or tenderness Increased amount of blood in the urine, or passing large blood clots Miscellaneous It is normal for you to have minor discomfort after your surgery. However, if there are any significant changes in your condition--such as shortness of breath, difficulty breathing, or pain or uneven swelling in your legs--please go to the Emergency Room immediately Return to Work: If you work in an office and are not lifting or doing strenuous activity, you may return to work when comfortable. If your work involves strenuous activity, you may need more time before returning to work. If necessary, our office can provide a letter stating the date that you may return to work. Follow-up Appointments Follow-up appointments will be scheduled by our office. If you have any questions, please call . documented in this encounter [facility] 02-18-2025 Telephone encounter Note Called pt's son, no answer, left message regarding surgery tomorrow and that is still planned. Asked to call the office back with any questions. [facility] 02-18-2025 Miscellaneous Notes Called pt's son, no answer, left message regarding surgery tomorrow and that is still planned. Asked to call the office back with any questions. Call returned lizet Blackwell . Advised of results and recommendations . Son will not be able to pick remover medication until the end of the day . Pt is scheduled for surgery tomorrow . Please verify that surgery is still on even of patient receives only 2 doses of ordered Macrobid LVM verbatim per VIANEY Lawson. For patient to call office back for results. ----- Message from Kiara Wayne PA-C sent at 02/18/2025 7:39 AM EDT ----- Please call the patient and let her know The urine culture results were positive for a urinary tract infection. Antibiotic therapy has been prescribed and sent to the pharmacy with appropriate instructions. Thank you. documented in this encounter [facility] 02-18-2025 Telephone encounter Note Call returned lizet Blackwell . Advised of results and recommendations . Son will not be able to pick remover medication until the end of the day . Pt is scheduled for surgery tomorrow . Please verify that surgery is still on even of patient receives only 2 doses of ordered Macrobid [facility] 02-18-2025 Telephone encounter Note LVM verbatim per VIANEY Lawson. For patient to call office back for results. [facility] 02-18-2025 Telephone encounter Note ----- Message from Kiara Wayne PA-C sent at 02/18/2025 7:39 AM EDT ----- Please call the patient and let her know The urine culture results were positive for a urinary tract infection. Antibiotic therapy has been prescribed and sent to the pharmacy with appropriate instructions. Thank you. [facility] 02-15-2025 Note Patient: Surinder barone Procedure Information Date/Time: 02/19/25 1330 Procedures: CYSTOSCOPY, WITH RETROGRADE PYELOGRAM (Urethra) - 90 min RIGHT URETEROSCOPY WITH HOLIUM LASER LITHOTRIPSY (Right: Urethra) RIGHT URETERAL STENT PLACEMENT (Right: Urethra) Location: [facility] [address] [place] [address] Operating Room Surgeons: Sarath Ramos MD Relevant Problems /Renal (+) Renal calculus, left (+) Renal calculus, right (+) Staghorn kidney stones 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 No date: Irritable bowel syndrome No date: Kidney stone No date: Left ventricular failure (HCC) No date: Mitral valve disorder Comment: prolapse No date: Pulmonary HTN ([facility]) No date: Thyroid disease Comment: hypothyroidism Past Surgical History: Past Surgical History: No date: BLADDER SURGERY Comment: prolapse No date: COLONOSCOPY 01/06/2024: CYSTOSCOPY; N/A Comment: CYSTOSCOPY AND PYELOGRAM, RIGHT URETEROSCOPY HOLMIUM LASER LITHOTRIPSY, RIGHT URETERAL STENT CHANGE No date: EYE SURGERY; Bilateral Comment: cataract No date: HYSTERECTOMY 03/12/2022: OTHER SURGICAL HISTORY; Right Comment: Percutaneous nephrolithotomy with JJ stent placemet 03/12/2022: OTHER SURGICAL HISTORY; Right Comment: Neph Tube Placement 09/24/2022: PERCUTANEOUS NEPHROLITHOTRIPSY; Left 11/2022: TOTAL KNEE ARTHROPLASTY; Right 09/24/2022: US NEPHROURETREAL CATHETER PLACEMENT NEW ACCESS (HISTORICAL); Left Social History: TOBACCO: reports that she has never smoked. She has never used smokeless tobacco. ETOH: reports no history of alcohol use. Social History Substance and Sexual Activity Drug Use Never Family History: No family history on file. Screening: Hysterectomy Clinical information reviewed: Tobacco Allergies Meds Med Hx Surg Hx OB Status Fam Hx Soc Hx Physical Exam Airway Mallampati: IV TM distance: <3 FB Neck ROM: limited Mouth Open: normal and limitedendotracheal tube not in place Cardiovascular Dental (+) Missing, Poor Pulmonary Abdominal Other findings: Kyphosis, poor neck extension Anesthesia Plan patient is NPO appropriate Any family history or previous problems with anesthesia no ASA 3 general Any family history or previous problems with anesthesia no The patient is not a current smoker. Anesthetic plan and risks discussed with patient and healthcare power of real estate associate attorney. Anesthesia [place] Considerations Mallampati 4 Has had an igel 4 in past Glidescope available if intubation Alert to person and place, not oriented to time, pleasant, history of dementia 4) mitral valve prolapse, rheumatic heart disease (as a child) - normal stress echo in 2021 - mild-mod mitral regurgitation - asymptomatic BRIT Screening STOP-Bang Total Score: 2 Labs: Lab Results Component Value Date WBC 4.5 12/02/2023 HGB 11.6 (L) 12/02/2023 HCT 33.6 (L) 12/02/2023 MCV 99.4 (H) 12/02/2023 PLT 262 12/02/2023 Lab Results Component Value Date NA 140 12/02/2023 K 3.5 12/02/2023 CL 107 12/02/2023 CO2 28 12/02/2023 BUN 14 12/02/2023 CREATININE 0.76 12/02/2023 GLUCOSE 91 12/02/2023 CALCIUM 9.7 12/02/2023 EGFR 81.8 12/02/2023 No echocardiogram results found for the past 14 days 02/15/25 ECG 12-LEAD (Preliminary) This result has not been signed. Information might be incomplete. Impression Sinus rhythm Atrial premature complexes in couplets Left ventricular hypertrophy Inferior infarct, old Anterior infarct, old Equipment Requests: Additional Equipment Requests [facility] 02-15-2025 Note Comprehensive Pre Koenig rgical History and Physical ? Name: Surinder Rasheed : 1950 (Age-75 y.o.) Date of Service: Pt seen/examined on 02/15/2025 Procedure Information Date/Time: 02/19/25 1330 Procedures: CYSTOSCOPY, WITH RETROGRADE PYELOGRAM (Urethra) - 90 min RIGHT URETEROSCOPY WITH HOLIUM LASER LITHOTRIPSY (Right: Urethra) RIGHT URETERAL STENT PLACEMENT (Right: Urethra) Location: [address] Operating Room Surgeons: Sarath Ramos MD Chief Complaint: Renal calculus [N20.0] ASSESSMENT/PLAN: This surgery is considered a intermediate level 1 risk procedure/surgery () with no reducible risk factors. Based on the above evaluation, the benefits of the planned procedure likely exceed the risks. The patient is medically optimized to proceed with the planned procedure without any further cardiopulmonary testing. 1) Renal calculus [N20.0] - Managed per surgery - Orders per PAT Protocol: EKG, cbc, bmp - METS > 4 2) HTN (hypertension) - MEDS: lorraine stout BP Readings from Last 3 Encounters: 02/15/25 121/80 02/07/25 130/68 01/06/24 134/79 - patient denies chest pain, SOB, dizziness, blurred vision - encouraged lifestyle modification - Managed by Dr. Newberry - Ordered EKG and BMP in PAT 3) GERD - MEDS: PPI - stable -avoidance of triggers encouraged - Managed by Dr. Newberry 4) mitral valve prolapse, rheumatic heart disease (as a child) - normal stress echo in 2021 - mild-mod mitral regurgitation - asymptomatic 5) Hypothyroidism - Treated with medication: Yes, With: synthroid, and Managed by: Dr. Newberry 6) Hypercholesteremia - MEDS: -Managed by Dr. Newberry - lifestyle modifications encouraged Visit Type: Pre-Admission Testing Visit Labs Ordered: YES - PER PAT PROTOCOL Sleep Referral Ordered: NO - NEGATIVE SCREEN PER SLEEP REFERRAL PROTOCOL Total time spent (which include face to face and non face to face encounters) : 30 minutes Toxic drug monitoring/narrow therapeutic index drug monitoring : # Drug name : multiple # Route administered : PO # Method of monitoring : labs, ekg PAT Protocol referenced includes: 1. Anesthesia Lab Protocol Orders 2. Perioperative Cardiovascular Risk Assessment 3. Anesthesia Assessment 4. Pain Assessment and Acute Pain Service Consult (if appropriate) 5. Medical Clearance/Consult from Internal Medicine (IMS) 6. Shower/Wash Order (for designated surgeries) 7. BRIT Screen and Sleep Clinic Referral (if appropriate) History Of Present Illness: 75 y.o. female who we are asked to see/evaluate by [place] [id number] for pre-operative evaluation prior to ? CYSTOSCOPY, WITH RETROGRADE PYELOGRAM (Urethra) - 90 min RIGHT URETEROSCOPY WITH HOLIUM LASER LITHOTRIPSY (Right: Urethra) RIGHT URETERAL STENT PLACEMENT (Right: Urethra) From last office visit with Va Wayne PA-C and Dr. Ramos on 02/07/25: "Surinder is a 75 y.o. 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 The patient had surgery with Dr. Ramos on 01/06/2024 for her kidney stones. The patient had a CT abdomen pelvis without IV contrast on 01/29/2025 resulting in bilateral renal calculi, larger in size and number on the right. Multiple right kidney stones largest measuring about 1.1cm in mid to lower pole. No hydroureteronephrosis. The patient denies dysuria, gross hematuria, flank pain, pelvic pain, fever or chills. Patient denies urinary urgency and frequency. The patient's son statedwhile she is living at her facility it is hard to focus on a kidney stone diet. Assessment and Plan: Surinder is a 75 y.o. female with history of kidney stones Diagnosis Plan 1. Right kidney stone Bladder scan Urine culture Urine culture Right kidney stone -Discussed her plan with Trenton Garrett, JEF, MICROBIOLOGY INSTRUCTOR, CUNP -multiple kidney stones largest measuring about 1.1cm in the right mid to lower pole seen on CT abdomen pelvis without IV contrast on 01/29/2025. There was no hydronephrosis. -We discussed that this may take multiple procedures to get the stone -Patient was advised to present to local Emergency Department for development of fevers, chills, nausea, vomiting or flank pain that is not controlled with oral pain medication I discussed the procedure of URETEROSCOPY +/- LASER LITHOTRIPSY. I discussed the risks, benefits and alternatives to this. I discussed the possible complications which could include but are not limited to bleeding, infection, pain, damage to urethra/bladder/ureter, need for additional procedures, and stricture disease. I discussed the possible need for stenting. I explained the need for stent and duration will be determined at that time of surgery. A string may or may not be left. I explained laser lithotripsy as well including risks of bleeding, in (more content not included)... [facility] 02-15-2025 Note Comprehensive Pre Koenig rgical History and Physical ? Name: Surinder Rasheed : 1950 (Age-75 y.o.) Date of Service: Pt seen/examined on 02/15/2025 Procedure Information Date/Time: 02/19/25 1330 Procedures: CYSTOSCOPY, WITH RETROGRADE PYELOGRAM (Urethra) - 90 min RIGHT URETEROSCOPY WITH HOLIUM LASER LITHOTRIPSY (Right: Urethra) RIGHT URETERAL STENT PLACEMENT (Right: Urethra) Location: [facility] [address] [place] [address] Operating Room Surgeons: Sarath Ramos MD Chief Complaint: Renal calculus [N20.0] ASSESSMENT/PLAN: This surgery is considered a intermediate level 1 risk procedure/surgery () with no reducible risk factors. Based on the above evaluation, the benefits of the planned procedure likely exceed the risks. The patient is medically optimized to proceed with the planned procedure without any further cardiopulmonary testing. 1) Renal calculus [N20.0] - Managed per surgery - Orders per PAT Protocol: EKG, cbc, bmp - METS > 4 2) HTN (hypertension) - MEDS: lorraine stout BP Readings from Last 3 Encounters: 02/15/25 121/80 02/07/25 130/68 01/06/24 134/79 - patient denies chest pain, SOB, dizziness, blurred vision - encouraged lifestyle modification - Managed by Dr. Newberry - Ordered EKG and BMP in PAT 3) GERD - MEDS: PPI - stable -avoidance of triggers encouraged - Managed by Dr. Newberry 4) mitral valve prolapse, rheumatic heart disease (as a child) - normal stress echo in 2021 - mild-mod mitral regurgitation - asymptomatic 5) Hypothyroidism - Treated with medication: Yes, With: synthroid, and Managed by: Dr. Newberry 6) Hypercholesteremia - MEDS: -Managed by Dr. Newberry - lifestyle modifications encouraged Visit Type: Pre-Admission Testing Visit Labs Ordered: YES - PER PAT PROTOCOL Sleep Referral Ordered: NO - NEGATIVE SCREEN PER SLEEP REFERRAL PROTOCOL Total time spent (which include face to face and non face to face encounters) : 30 minutes Toxic drug monitoring/narrow therapeutic index drug monitoring : # Drug name : multiple # Route administered : PO # Method of monitoring : labs, ekg PAT Protocol referenced includes: 1. Anesthesia Lab Protocol Orders 2. Perioperative Cardiovascular Risk Assessment 3. Anesthesia Assessment 4. Pain Assessment and Acute Pain Service Consult (if appropriate) 5. Medical Clearance/Consult from Internal Medicine (IMS) 6. Shower/Wash Order (for designated surgeries) 7. BRIT Screen and Sleep Clinic Referral (if appropriate) History Of Present Illness: 75 y.o. female who we are asked to see/evaluate by [facility] 03 for pre-operative evaluation prior to ? CYSTOSCOPY, WITH RETROGRADE PYELOGRAM (Urethra) - 90 min RIGHT URETEROSCOPY WITH HOLIUM LASER LITHOTRIPSY (Right: Urethra) RIGHT URETERAL STENT PLACEMENT (Right: Urethra) From last office visit with Va Wayne PA-C and Dr. Ramos on 02/07/25: "Surinder is a 75 y.o. 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 The patient had surgery with Dr. Ramos on 01/06/2024 for her kidney stones. The patient had a CT abdomen pelvis without IV contrast on 01/29/2025 resulting in bilateral renal calculi, larger in size and number on the right. Multiple right kidney stones largest measuring about 1.1cm in mid to lower pole. No hydroureteronephrosis. The patient denies dysuria, gross hematuria, flank pain, pelvic pain, fever or chills. Patient denies urinary urgency and frequency. The patient's son statedwhile she is living at her facility it is hard to focus on a kidney stone diet. Assessment and Plan: Surinder is a 75 y.o. female with history of kidney stones Diagnosis Plan 1. Right kidney stone Bladder scan Urine culture Urine culture Right kidney stone -Discussed her plan with Trenton Garrett, JEF, MICROBIOLOGY INSTRUCTOR, CUNP -multiple kidney stones largest measuring about 1.1cm in the right mid to lower pole seen on CT abdomen pelvis without IV contrast on 01/29/2025. There was no hydronephrosis. -We discussed that this may take multiple procedures to get the stone -Patient was advised to present to local Emergency Department for development of fevers, chills, nausea, vomiting or flank pain that is not controlled with oral pain medication I discussed the procedure of URETEROSCOPY +/- LASER LITHOTRIPSY. I discussed the risks, benefits and alternatives to this. I discussed the possible complications which could include but are not limited to bleeding, infection, pain, damage to urethra/bladder/ureter, need for additional procedures, and stricture disease. I discussed the possible need for stenting. I explained the need for stent and duration will be determined at that time of surgery. A string may or may not be left. I explained laser lithotripsy as well including risks of bleeding, in (more content not included)... [facility] 02-13-2025 Telephone encounter Note Spoke to pts son about upcoming PAT 02/15/2025 and surgery 02/19/2025 at [facility] Doctor: Rachel PAT (arrive 15 min early): 02/15/2025 9:30 AM PAT instructions: Please bring photo ID, insurance card, list of all current medications Surgery: 02/19/2025 1:30 AM Surgery arrival time: 11:30 AM Surgery instructions: Nothing to eat after midnight. Can have clear liquids black coffee (no cream or dairy), tea, water, Sprite, apple juice, Gatorade (no reds or purples) up until arrival time. Medication instructions: Hold Aspirin, fish oil and over the counter vitamins 3 days prior to surgery [facility] 02-13-2025 Miscellaneous Notes Spoke to pts son about upcoming PAT 02/15/2025 and surgery 02/19/2025 at [facility] Doctor: Rachel PAT (arrive 15 min early): 02/15/2025 9:30 AM PAT instructions: Please bring photo ID, insurance card, list of all current medications Surgery: 02/19/2025 1:30 AM Surgery arrival time: 11:30 AM Surgery instructions: Nothing to eat after midnight. Can have clear liquids black coffee (no cream or dairy), tea, water, Sprite, apple juice, Gatorade (no reds or purples) up until arrival time. Medication instructions: Hold Aspirin, fish oil and over the counter vitamins 3 days prior to surgery Lvm to discuss upcoming PAT and surgery instructions SURGERY SCHEDULING Surgeon: Any PROCEDURE: cystoscopy, right ureteroscopy, laser lithotripsy, retrograde pyelogram, right ureteral stent placement. - Special request: Teresita gama DIAGNOSIS: right kidney stone FACILITY: [facility] DETAILS: OUTPT ANESTHESIA: GENERAL TIME REQUESTED: 90 minutes DATE REQUESTED: First available SURGERY ORDERS: Already placed by Kiara Wayne PA-C on 02/07/2025 POST OP FOLLOW UP: cysto stent removal 1-2 wks Urine culture ordered: Yes CT scan: Yes documented in this encounter [facility] 02-13-2025 Telephone encounter Note Lvm to discuss upcoming PAT and surgery instructions [facility] 02-07-2025 Note SURGERY SCHEDULING Surgeon: Any PROCEDURE: cystoscopy, right ureteroscopy, laser lithotripsy, retrograde pyelogram, right ureteral stent placement. - Special request: Teresita laser DIAGNOSIS: right kidney stone FACILITY: [facility] DETAILS: OUTPT ANESTHESIA: GENERAL TIME REQUESTED: 90 minutes DATE REQUESTED: First available SURGERY ORDERS: Already placed by Kiara Wayne PA-C on 02/07/2025 POST OP FOLLOW UP: cysto stent removal 1-2 wks Urine culture ordered: Yes CT scan: Yes [facility] 02-07-2025 Telephone encounter Note SURGERY SCHEDULING Surgeon: Any PROCEDURE: cystoscopy, right ureteroscopy, laser lithotripsy, retrograde pyelogram, right ureteral stent placement. - Special request: Teresita laser DIAGNOSIS: right kidney stone FACILITY: [facility] DETAILS: OUTPT ANESTHESIA: GENERAL TIME REQUESTED: 90 minutes DATE REQUESTED: First available SURGERY ORDERS: Already placed by Kiara Wayne PA-C on 02/07/2025 POST OP FOLLOW UP: cysto stent removal 1-2 wks Urine culture ordered: Yes CT scan: Yes [facility] 02-07-2025 History of Present illness Narrative Images from the original note were not included. CHATO Lawson PA-C Urology Office Visit Patient: Surinder Rasheed Age/Sex: 75 y.o., female Referred by: Dr. Ospina ref. provider found PCP: Stacey Newberry DO Today's Date: 02/07/2025 Visit type: Established patient Chief Complaint: Chief Complaint Patient presents with Follow-up Follow up - pt denies issues, pain, distress or discomfort currently HPI: Surinder is a 75 y.o. 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 The patient had surgery with Dr. Ramos on 01/06/2024 for her kidney stones. The patient had a CT abdomen pelvis without IV contrast on 01/29/2025 resulting in bilateral renal calculi, larger in size and number on the right. Multiple right kidney stones largest measuring about 1.1cm in mid to lower pole. No hydroureteronephrosis. The patient denies dysuria, gross hematuria, flank pain, pelvic pain, fever or chills. Patient denies urinary urgency and frequency. The patient's son stated while she is living at her facility it is hard to focus on a kidney stone diet. Review of Systems: A comprehensive 10+ review of systems was negative except for: see HPI Past Medical History & Surgical History: Past Medical History: Diagnosis Date Arthritis GERD (gastroesophageal reflux disease) Hyperlipidemia Hypertension Kidney stone Mitral valve disorder prolapse Thyroid disease hypothyroidism Past Surgical History: Procedure Laterality Date BLADDER SURGERY prolapse COLONOSCOPY CYSTOSCOPY N/A 01/06/2024 CYSTOSCOPY AND PYELOGRAM, RIGHT URETEROSCOPY HOLMIUM LASER LITHOTRIPSY, RIGHT URETERAL STENT CHANGE EYE SURGERY Bilateral cataract HYSTERECTOMY OTHER SURGICAL HISTORY Right 03/12/2022 Percutaneous nephrolithotomy with JJ stent placemet OTHER SURGICAL HISTORY Right 03/12/2022 Neph Tube Placement PERCUTANEOUS NEPHROLITHOTRIPSY Left 09/24/2022 TOTAL KNEE ARTHROPLASTY Right 11/2022 NEPHROURETREAL CATHETER PLACEMENT NEW ACCESS (HISTORICAL) Left 09/24/2022 Allergies: Allergies Allergen Reactions Cyclobenzaprine Other reaction(s): Other (See Comments) Other reaction(s): Irregular heart beat, Irregular Heartbeat Prednisone Itching and Rash Promethazine Other reaction(s): Other (See Comments) Other reaction(s): Irregular heart beat, Irregular Heart Rate Statins Other reaction(s): myalgias Hydrocodone Other reaction(s): Other (See Comments) Pt does not recall reaction Lisinopril Other reaction(s): Other (See Comments) Pt does not recall Sulfa Antibiotics Other reaction(s): Dizziness or Vertigo Medications: BP 130/68 Pulse 72 Ht 5' 4" (1.626 m) Wt 140 lb (63.5 kg) BMI 24.03 kg/m Current Outpatient Medications: acetaminophen (Tylenol) 325 MG tablet, Take by mouth every 6 hours as needed., Disp: , Rfl: amLODIPine (Norvasc) 5 MG tablet, Take 5 mg by mouth daily., Disp: , Rfl: ascorbic acid (Vitamin C) 500 mg chewable tablet, Chew 500 mg., Disp: , Rfl: levothyroxine (Synthroid, Levoxyl) 112 MCG tablet, Take 100 mcg by mouth every morning (before breakfast)., Disp: , Rfl: LORazepam (Ativan) 0.5 MG tablet, Take 0.5 mg by mouth in the morning and 0.5 mg before bedtime., Disp: , Rfl: losartan (Cozaar) 25 MG tablet, Take 50 mg by mouth daily., Disp: , Rfl: pantoprazole (ProtoNix) 40 MG EC tablet, Take 40 mg by mouth Daily as needed., Disp: , Rfl: Family History: No family history on file. Social History: She reports that she has never smoked. She has never used smokeless tobacco. She reports that she does not drink alcohol and does not use drugs. Physical Exam: General: Well developed, well nourished, alert and cooperative, appears in no acute distress Head: Normocephalic, atraumatic Neck: supple, trachea midline Eyes: Non-injected conjunctiva, sclera clear, no proptosis Cardiac: Extremities are warm and well perfused. No edema, cyanosis or pallor. Lungs: Breathing is easy, non-labored. Speaking in clear and complete sentences. Normal diaphragmatic movement. Abdomen: soft, non-distended, non-tender, no rebound or guarding, no hernia and no CVA tenderness MSK: Ambulatory with steady gait, unassisted Neuro: alert and oriented to person, place and time Psych: Demonstrates good judgement and reason, without hallucinations, abnormal affect or abnormal behaviors. Skin: no obvious lesions, no rashes Pertinent Labs: CBC: Lab Results Component Value Date WBC 4.5 12/02/2023 HGB 11.6 (L) 12/02/2023 HCT 33.6 (L) 12/02/2023 MCV 99.4 (H) 12/02/2023 PLT 262 12/02/2023 CMP: Lab Results Component Value Date NA 140 12/02/2023 K 3.5 12/02/2023 CL 107 12/02/2023 CO2 28 12/02/2023 BUN 14 12/02/2023 CREATININE 0.76 12/02/2023 GLUCOSE 91 12/02/2023 Hemoglobin A1C: No results found for: "HGBA1C" Urinalysis: Lab Results Component Value Date COLORU Light-Yellow 09/17/2022 GLUCOSEUR 100 11/10/2023 BILIRUBINUR Negative 11/10/2023 KETONESU Negative 11/10/2023 SPECGRAV 1.010 11/10/2023 RBCUR Small 11/10/2023 PHUR 6.0 11/10/2023 PROTUR Negative 11/10/2023 UROBILINOGEN 0.2 11/10/2023 LEUKOCYTESUR Small 11/10/2023 NITRITE Positive 11/10/2023 Urine Culture: Lab Results Component Value Date URINECX SEE NOTE (A) 11/10/2023 PVR: 50mL Imaging: I have viewed the images from this patient's radiographic exam(s) and my independent assessment is multiple kidney stones largest measuring about 1.1cm in the right mid to lower pole, CT abdomen pelvis without IV contrast on 01/29/2025. There was no hydronephrosis. CT abdomen pelvis wo IV contrast Status: Final result Link to Procedure Log Procedure Log Orders Requiring a Screening Form Procedure Order Status Order ID Accession Number Form Status CT abdomen pelvis wo IV contrast Completed [id number] Created PACS Images Show images for CT abdomen pelvis wo IV contrast Study Result Narrative & Impression Patient Name: SURINDER RASHEED : 1950 Exam Date/Time: 01/29/2025 16:07 Procedure: CT ABDOMEN PELVIS WO IV CONTRAST Ordering Provider: RAMOS JOSHUA Reason For Exam: kidney stones , hydronephrosis EXAM: CT Abdomen and Pelvis Without Intravenous Contrast CLINICAL INDICATION: kidney stones , hydronephrosis TECHNIQUE: Axial computed tomography images of the abdomen and pelvis without intravenous contrast. This CT exam was performed using one or more of the following dose reduction techniques: automated exposure control, adjustment of the mA and/or kV according to patient size, and/or use of iterative reconstruction technique. COMPARISON: No relevant prior studies available. FINDINGS: LUNG BASES: Subsegmental left basilar atelectasis. ABDOMEN: LIVER: Unremarkable. GALLBLADDER AND BILE DUCTS: Gallstone. Gallbladder otherwise unremarkable. No ductal dilation. PANCREAS: Mildly dilated pancreatic duct measuring 3 cm in width. SPLEEN: Unremarkable. No splenomegaly. ADRENALS: Unremarkable. No mass. KIDNEYS AND URETERS: Multiple right renal calculi measuring up to 14 mm. There are a few punctate left renal calculi. No hydroureteronephrosis. Bilateral renal cysts. These do not require follow-up imaging. STOMACH AND BOWEL: Diverticuli are noted throughout the sigmoid colon. No stenotic lesion, mucosal thickening or adjacent fat stranding is noted to suggest diverticulitis. Moderate stool throughout the colon. No obstruction. PELVIS: APPENDIX: No findings to suggest acute appendicitis. BLADDER: Unremarkable. No stones. REPRODUCTIVE: Status post hysterectomy. ABDOMEN and PELVIS: INTRAPERITONEAL SPACE: Unremarkable. No free air. No significant fluid collection. BONES/JOINTS: Degenerative changes are present in the visualized spine. No acute fracture. VASCULATURE: Atherosclerotic disease. No abdominal aortic aneurysm. LYMPH NODES: Unremarkable. No enlarged lymph nodes. IMPRESSION: 1. Bilateral renal calculi, larger in size and number on the right. No hydroureteronephrosis. 2. Cholecystolithiasis. 3. Colonic diverticulosis. 4. Moderate stool throughout the colon. Consider constipation. 5. Mildly dilated pancreatic duct due to chronic pancreatitis. Report Dictated on Electronically Signed By: Vijay Coles MD Electronically Signed Date/Time: 01/30/2025 8:19 AM EST Assessment and Plan: Surinder is a 75 y.o. female with history of kidney stones Diagnosis Plan 1. Right kidney stone Bladder scan Urine culture Urine culture Right kidney stone -Discussed her plan with Trenton Garrett, JEF, MICROBIOLOGY INSTRUCTOR, CUNP -multiple kidney stones largest measuring about 1.1cm in the right mid to lower pole seen on CT abdomen pelvis without IV contrast on 01/29/2025. There was no hydronephrosis. -We discussed that this may take multiple procedures to get the stone -Patient was advised to present to local Emergency Department for development of fevers, chills, nausea, vomiting or flank pain that is not controlled with oral pain medication I discussed the procedure of URETEROSCOPY +/- LASER LITHOTRIPSY. I discussed the risks, benefits and alternatives to this. I discussed the possible complications which could include but are not limited to bleeding, infection, pain, damage to urethra/bladder/ureter, need for additional procedures, and stricture disease. I discussed the possible need for stenting. I explained the need for stent and duration will be determined at that time of surgery. A string may or may not be left. I explained laser lithotripsy as well including risks of bleeding, infection, and damage to kidney or ureter. I explained this and compared and contrasted it to other procedures such as ESWL and PCNL. She understands this and wishes to proceed with right ureteroscopy with laser lithotripsy and stone manipulation. Follow Up: Follow up for surgery-surgery scheduling will call the patient/patien's son to schedule. CHATO Lawson PA-C [facility] [place] All questions and concerns were answered and addressed. The patient expressed understanding and agrees with the plan. Reviewed and approved by Kiara Wayne PA-C, on 02/07/2025 at 11:44 AM. documented in this encounter [facility] 02-07-2025 Instructions Kiara Wayne PA-C - 02/07/2025 11:00 AM EDT Images from the original note were not included. [facility]rology [address] [facility] [address] [place] [address] Ph. Kidney Stone Diet Instructions What is a kidney stone? A kidney stone is a hard mass that forms from crystals in the urine. These crystals form when substances in the urine (such as calcium, oxalates, and phosphorus) become highly concentrated in the urine. Approximately 1 in every 1,000 adults are hospitalized each year for kidney stones. Kidney stones may remain in the kidney, or they can move down the ureter into the bladder. When kidney stones move, they cause pain in the back and side which may radiate to the lower abdomen. If these stones are small (less than 5 mm), they may pass on their own. If they are larger, they may require surgery to remove them. Are all kidney stones the same? No. There are 4 main types of kidney stones. Calcium Stones are the most common type of kidney stones. They are formed from high calcium and high oxalate excretion, and when the pH for the urine if high (alkaline). Oxalates are found naturally in many foods, including fruits and vegetables, nuts and seeds, grains, legumes, chocolate and tea. Calcium in the digestive tract binds to oxalates from foods and keep it from entering the blood. This extra calcium is then excreted by the kidneys into the urine, where it can form stones. Uric Acid Stones form when the urine is acidic. A diet rich in animal protein (such as meats, fish and shellfish) may increase uric acid in the urine. Struvite Stones can result from recurrent kidney infections. Cysteine Stones result from a genetic disorder that causes cysteine to leak through the kidneys and into the urine, which then form crystals. Who is at risk for developing kidney stones? History of intestinal surgery or difficulty digesting fat, as seen after bariatric surgery. Intestinal malabsorption syndromes, leaky gut Recent or heavy antibiotic use Hyperparathyroidism Diet high in oxalate containing foods Dehydration, prolonged constipation or diarrhea Pancreatic insufficiency Congenital malformations of the urinary tract What can I do to prevent kidney stones? Staying well hydrated by drinking enough water is one of the best measures you can take to avoid kidney stones. It is very important that you drink at least 3 quarts (12 cups) of fluid throughout the day. Get the Calcium you need: too little calcium in your diet can cause oxalate levels to rise. To prevent this, make sure that you are getting the amount of calcium that is appropriate for your age. Reduce Sodium intake. Sodium increases the amount of calcium in your urine. Current guidelines suggest limiting your sodium intake to 2200 mg daily. Limit animal protein. Eating too much protein (such as with a low-carbohydrate diet), boosts uric acid levels and could lead to kidney stones. Is there a special diet I can follow to help prevent me from having more kidney stones? You may be asked to make changes in the amount of salt (sodium), calcium, oxalate, protein, citrate, potassium and fluid in your diet. You may need to see a registered nurse nursery to help make some of these changes. Extra sodium results in an increase in calcium excretion in your urine, putting you at risk for developing a stone. If you have high calcium in your urine then it may be helpful to reduce your sodium intake. Reducing dietary oxalates can help reduce the formation of stones, especially if other treatments do not help. Low Oxalate Diet Foods Low in Oxalate (eat as desired) Foods moderately high in Oxalates (Eat in moderation) Foods High in Oxalates (limit servings of these foods) Apple Juice Avocado Lovelace Bananas Beef (lean) Elizabeth Cherries Brussel Sprouts Cabbage Cauliflower Cheese Eggs Grapefruit Green Grapes Jellies Herring Lemonade or Limeade Melons Milk Mushrooms Pork Poultry Preserves Nectarines Noodles Oatmeal Oils Onions Peas (fresh) Plums Radishes Rice Salad Dressing Seafood Spaghetti White Bread Wine Yogurt Apple Apricots Asparagus Bottled Veer Broccoli Carrots Chicken Noodle Soup (dried) Coffee Cola beverages [place]/ cornbread Chardon Lettuce Buitrago Beans Marmalade Oranges Chesapeake Parsnips Peaches Pears Peas Pepper Pineapple Plums Prunes Sardines Soy Products Sponge Cake Tomatoes Tomato juice Turnip Watercress Beans Beer Beets Blackberries Black and Red Raspberries Blueberries Celery Chard Chocolate Nisula Coffee Powder Collards Sweeny Grapes Crackers made from Soy Flour Currants Dandelion Greens Eggplant Escarole Fruit Cake Fruit Salad (canned) Green Chan Pepper Grits Juices containing berries Kale Leeks Lemon and [place] Peel Nuts (peanuts and pecans) Okra Ovaltine Parsley Pokeweed Rhubarb Rutabagas Spinach Strawberries Summer Squash Sweet Potatoes Tea Tofu Tomato Soup Wheat Germ documented in this encounter [facility] 02-05-2025 Telephone encounter Note Spoke with patient's sonmolly Blackwell and given Chad's message verbatim. Colton verbalized understanding and have no further questions or concerns at this time. Patient will see Kiara on 02/07/2025 . [facility] 02-05-2025 Miscellaneous Notes Spoke with patient's sonmolyl Blackwell and given Chad's message verbatim. Colton verbalized understanding and have no further questions or concerns at this time. Patient will see Kiara on 02/07/2025 . Attempted to contact patient to give Chad's message verbatim. LVM for patient to call the office. ----- Message from ALONDRA Lantigua CNP sent at 02/04/2025 5:08 PM EDT ----- Please let patient know her CT scan shows she does have some stones in her kidneys, but they are not causing any blockages at this time. Please also remind patient of her upcoming appointment with Kiara Wayne PA-C on 02-07-25. Thank you documented in this encounter [facility] 02-05-2025 Telephone encounter Note Attempted to contact patient to give Chad's message verbatim. LVM for patient to call the office. [facility] 02-05-2025 Telephone encounter Note ----- Message from ALONDRA Lantigua CNP sent at 02/04/2025 5:08 PM EDT ----- Please let patient know her CT scan shows she does have some stones in her kidneys, but they are not causing any blockages at this time. Please also remind patient of her upcoming appointment with Kiara Wayne PA-C on 02-07-25. Thank you [facility] 01-18-2025 Telephone encounter Note Your patient has been scheduled for their CT on 01/29/2025 at 4:15pm. If testing requires an insurance authorization, the authorization must be in place 48 hours prior to the scheduled test or testing will be cancelled. Thank you, Central Scheduling [phone] [facility] 01-18-2025 Miscellaneous Notes Your patient has been scheduled for their CT on 01/29/2025 at 4:15pm. If testing requires an insurance authorization, the authorization must be in place 48 hours prior to the scheduled test or testing will be cancelled. Thank you, Central Scheduling [phone] documented in this encounter [facility] 02-14-2024 History of Present illness Narrative Images from the original note were not included. Sarath Ramos MD 02/14/2024 at 11:10 AM Office follow up PATIENT NAME: Surinder Rasheed DATE OF : 1950 TODAY'S DATE: 02/14/2024 CHIEF COMPLAINT: Chief Complaint Patient presents with Nephrolithiasis Subjective: Ms. Rasheed is a 74 y.o. female who presents to the office for follow up of kidney stones and right hydronephrosis Has not had any further UTI since last surgery Currently denies flank pain Review of Systems Constitutional: Negative for activity change, diaphoresis and fatigue. Gastrointestinal: Negative for abdominal distention and abdominal pain. Genitourinary: Negative for difficulty urinating and hematuria. Past Medical History: Past Medical History: Diagnosis Date Arthritis GERD (gastroesophageal reflux disease) Hyperlipidemia Hypertension Kidney stone Mitral valve disorder prolapse Thyroid disease hypothyroidism Past Surgical History: Past Surgical History: Procedure Laterality Date BLADDER SURGERY prolapse COLONOSCOPY CYSTOSCOPY N/A 01/06/2024 CYSTOSCOPY AND PYELOGRAM, RIGHT URETEROSCOPY HOLMIUM LASER LITHOTRIPSY, RIGHT URETERAL STENT CHANGE EYE SURGERY Bilateral cataract HYSTERECTOMY OTHER SURGICAL HISTORY Right 03/12/2022 Percutaneous nephrolithotomy with JJ stent placemet OTHER SURGICAL HISTORY Right 03/12/2022 Neph Tube Placement PERCUTANEOUS NEPHROLITHOTRIPSY Left 09/24/2022 TOTAL KNEE ARTHROPLASTY Right 11/2022 NEPHROURETREAL CATHETER PLACEMENT NEW ACCESS (HISTORICAL) Left 09/24/2022 Allergies: Cyclobenzaprine, Prednisone, Promethazine, Statins, Hydrocodone, Lisinopril, and Sulfa antibiotics Social History: Social History Socioeconomic History Marital status: Spouse name: Not on file Number of children: Not on file Years of education: Not on file Highest education level: Not on file Occupational History Not on file Tobacco Use Smoking status: Never Smokeless tobacco: Never Vaping Use Vaping Use: Never used Substance and Sexual Activity Alcohol use: Never Drug use: Never Sexual activity: Not on file Other Topics Concern Not on file Social History Narrative Not on file Social Determinants of Health Financial Resource Strain: Not on file Food Insecurity: Not on file Transportation Needs: Not on file Physical Activity: Not on file Stress: Not on file Social Connections: Not on file Intimate Partner Violence: Not At Risk (12/06/2023) Humiliation, Afraid, Rape, and Kick questionnaire Fear of Current or Ex-Partner: No Emotionally Abused: No Physically Abused: No Sexually Abused: No Housing Stability: Not on file Family History: Medications Prior to Admission medications Medication Sig Start Date End Date Taking? Authorizing Provider acetaminophen (Tylenol) 325 MG tablet Take by mouth every 6 hours as needed. 11/22/17 Yes Historical Provider, amLODIPine (Norvasc) 5 MG tablet Take 5 mg by mouth daily. 02/22/22 05/13/24 Yes Historical Provider, ascorbic acid (Vitamin C) 500 mg chewable tablet Chew 500 mg. 11/07/23 Yes Historical Provider, levothyroxine (Synthroid, Levoxyl) 112 MCG tablet Take 100 mcg by mouth every morning (before breakfast). 11/25/21 Yes Historical Provider, LORazepam (Ativan) 0.5 MG tablet Take 0.5 mg by mouth in the morning and 0.5 mg before bedtime. 06/10/15 Yes Historical Provider, losartan (Cozaar) 25 MG tablet Take 50 mg by mouth daily. 06/03/21 05/13/24 Yes Historical Provider, pantoprazole (ProtoNix) 40 MG EC tablet Take 40 mg by mouth Daily as needed. 11/19/21 Yes Historical Provider, Vitals: Ht 5' 3.5" (1.613 m) Wt 135 lb (61.2 kg) BMI 23.54 kg/m Physical Exam General: alert, appears stated age, and cooperative Abdomen: soft and nondistended Back: straight, CVA tenderness absent : defer exam Labs: WBC Lab Results Component Value Date WBC 4.5 12/02/2023 BMP Lab Results Component Value Date NA 140 12/02/2023 K 3.5 12/02/2023 CL 107 12/02/2023 CO2 28 12/02/2023 BUN 14 12/02/2023 CREATININE 0.76 12/02/2023 CREATININE 0.68 09/17/2022 GLUCOSE 91 12/02/2023 CALCIUM 9.7 12/02/2023 PSA No results found for: "PSA" UA Lab Results Component Value Date APPEARANCE Turbid (A) 09/17/2022 COLORU Light-Yellow 09/17/2022 LABSPEC 1.006 09/17/2022 LABPH 6.0 09/17/2022 GLUCOSEU Normal 09/17/2022 UROBILINOGEN 0.2 11/10/2023 UROBILINOGEN Normal 09/17/2022 BILIRUBINUR Negative 11/10/2023 OCBU 1.0 (A) 09/17/2022 Review: MAG3 DIURETIC RENOGRAM CLINICAL INDICATION: UPJ obstruction The patient was given an intravenous dose of 8.2 mCi of technetium 99m MAG3. Flow images over the kidneys were obtained in the posterior projection, followed by delayed images over the following 20 minutes. Activity curves over the kidney were obtained during the flow and parenchymal imaging. The patient was subsequently given an intravenous administration of 40 mg of Lasix and additional post-Lasix imaging of the kidneys was performed for an additional 20 minutes. COMPARISON: None FINDINGS: Initial angiographic phase images demonstrate prompt perfusion to both kidneys. The right kidney is slightly smaller in size than the left. Both kidneys demonstrate prompt uptake and clearance of tracer from the renal parenchyma. Renal cortical split function appears symmetric, with the left renal cortex contributing 42% of overall renal cortical tracer uptake compared with 58% on the right. At the end of pre-Lasix imaging, there is mild to moderate dilatation of the right renal collecting system. No left-sided hydronephrosis is seen. Following administration of intravenous Lasix, there is rapid, fairly complete clearance of tracer from the dilated right renal collecting system. T1/2 clearance time of the right renal collecting system is approximately 6 minutes (nonobstructed less than 10 minutes, high grade obstruction greater than 20 minutes). IMPRESSION: Mild to moderate right-sided hydronephrosis. There is rapid clearance of tracer from the right renal collecting system following administration of intravenous Lasix. No evidence of high-grade obstruction is seen. No evidence of left-sided hydronephrosis or obstruction. The right kidney is slightly smaller in size than the left, however renal cortical function appears relatively symmetric and normal. Impression/Plan Diagnoses and all orders for this visit: Right kidney stone - CT abdomen pelvis wo IV contrast; Future UPJ obstruction, acquired - CT abdomen pelvis wo IV contrast; Future No evidence for obstruction on mag three scan Hydronephrosis on retrograde appears physiologic Ct in 1year to assess for further stone formation unless recurrent utis return sooner Follow up in about 1 year (around 02/13/2025). Sarath aRmos MD 02/14/24 11:10 AM documented in this encounter [facility] 02-10-2024 Note ORIGINAL HISTORY: Memory changes COMPARISON: Head CT 21 March 2021 TECHNIQUE: 1. Axial FLAIR images. 2. Axial diffusion-weighted images with ADC map. The patient was unable to tolerate further imaging. FINDINGS: The study is incomplete and nondiagnostic. No diffusion abnormality is seen. IMPRESSION: Incomplete and nondiagnostic examination. Interpreted by: Jefferson Sanderson MD Preliminary Report By: Jefferson Sanderson MD Electronically signed By Jefferson Sanderson MD Dictated Date: 02/10/2024 11:52:47 AM Prelim Date: 02/10/2024 11:53:58 AM Sign Date: 02/10/2024 11:53:58 AM Ordering Provider: [facility] 01-15-2024 Note . MICRO - Microbiology PROCEDURE: Urine Culture [*1] SOURCE: Urine, Clean Catch BODY SITE: COLLECTED DATE/TIME: 01/13/2024 16:46 EST RECEIVED DATE/TIME: 01/13/2024 21:48 EST START DATE/TIME: 01/13/2024 21:49 EST FREE TEXT SOURCE: FINAL REPORTS Final Report [] Verified Date/Time/Personnel: 01/15/2024 08:43 EST >100,000 cfu/ml Pseudomonas aeruginosa PRELIMINARY REPORTS Preliminary Report [] Verified Date/Time/Personnel: 01/14/2024 14:02 EST >100,000 cfu/ml Pseudomonas aeruginosa MEGGAN to follow SUSCEPTIBILITY RESULTS Pseudomonas aeruginosa Antibiotic MEGGAN Dilut MEGGAN Inter Aztreonam <=4 Susceptible Cefepime <=2 Susceptible Ceftazidime <=1 Susceptible ID Panel Not Not Applicable Applicable Imipenem <=1 Susceptible Levofloxacin <=0.5 Susceptible Meropenem <=1 Susceptible Piperacillin/ <=8 Susceptible Tazobactam Tobramycin <=2 Susceptible Performing Locations *1: This test was performed at: [facility], [address] [place] [address]) 01-12-2024 Note PERIPHERAL WHOLE BLOOD NA Heparin Tube PATH PROF CPT: 93316 Testing performed by [facility] 01-11-2024 Note PERIPHERAL WHOLE BLOOD NA Heparin Tube PATH PROF CPT: 76154 Testing performed by [facility] 01-11-2024 Note PERIPHERAL WHOLE BLOOD NA Heparin Tube PATH PROF CPT: 18752 Testing performed by [facility] 01-11-2024 Note PERIPHERAL WHOLE BLOOD NA Heparin Tube PATH PROF CPT: 25291 Testing performed by [facility] 01-11-2024 Note PERIPHERAL WHOLE BLOOD NA Heparin Tube PATH PROF CPT: 70052 Testing performed by [facility] 01-11-2024 Note PERIPHERAL WHOLE BLOOD NA Heparin Tube PATH PROF CPT: 88923 Testing performed by [facility] 01-11-2024 Note PERIPHERAL WHOLE BLOOD NA Heparin Tube PATH PROF CPT: 82243 Testing performed by [facility] 01-06-2024 Note Formatting of this n ote might be different from the original. Discharge information given to the patient. Patient and family verbalized understanding of information. All questions were answered before discharge. Patient ambulated, denies dizziness or nausea. Tolerating PO fluids and crackers. Vital signs are stable. Patient has changed and is being discharged home in a wheelchair with valuables. [facility] 01-06-2024 Note Formatting of this n ote might be different from the original. Discharge information given to the patient. Patient and family verbalized understanding of information. All questions were answered before discharge. Patient ambulated, denies dizziness or nausea. Tolerating PO fluids and crackers. Vital signs are stable. Patient has changed and is being discharged home in a wheelchair with valuables. [facility] 01-06-2024 Miscellaneous Notes Discharge information given to the patient. Patient and family verbalized understanding of information. All questions were answered before discharge. Patient ambulated, denies dizziness or nausea. Tolerating PO fluids and crackers. Vital signs are stable. Patient has changed and is being discharged home in a wheelchair with valuables. Patient family/visitor updated by RN at this time. PreOp Dx right renal calculus PostOp Dx Same Operation Cystoscopy, retrograde pyelogram, flouroscopy, right ureteroscopy, laser lithotripsy, ureteral stent change Surgeon Sarath Ramos MD Assist None EBL Minimal Drains 6 fr X 26cmJJ w/string Gusman none Specimen none Condition To PACU This is a 73 y.o. patient who presents with a renal calculus. She has had previous laser lithotripsy with stent placement. 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 After having a discussion on treatment options, risks and benefits, the patient wishes to proceed forward with surgical intervention Patient was brought to the operating room. A thorough time out was performed and everyone present was in agreement. Patient was placed on OR table. Anesthesia and lines were maintained by the anesthesia team. Patient was placed in the dorsal lithotomy position. Prepped and draped in usual fashion. Pressure points were padded. A cystourethroscope was inserted through the urethra and the bladder was inspected. The indwelling stent was grasped and removed Retrograde pyelograms were performed under fluoroscopic visualization on the right side, there was hydronephrosis. A sensor wire was advanced to the level of the kidney. A 12/14 fr ureteral access sheath was advanced over the wire under fluoroscopy. A flexible ureteroscope was passed through the access sheath. The ureteroscope could not advance into the kidney without the wire to help straighten out the UPJ, there was a sharp turn as it enters the renal pelvis The renal pelvis was dilated The stone was visualized and laser lithotripsied using the holmium laser. The fragments were dusted using TERESITA laser A 6 fr X 26cmJJ was advanced over the wire through the cystoscope under fluoroscopic visualization. Once in position the wire was removed. A good curl was noted in the kidney and the bladder. The bladder was emptied and patient awoken from anesthesia. Plan will be for stent removal in 4 days, then follow up for mag three scan documented in this encounter [facility] 01-06-2024 Note Formatting of this n ote might be different from the original. Patient family/visitor updated by RN at this time. [facility] 01-06-2024 Note Formatting of this n ote might be different from the original. Patient family/visitor updated by RN at this time. [facility] 01-06-2024 Hospital Discharge instructions Abelardo Fritz MD - 01/06/2024 8:39 AM EST You ureteral stent is attached to a string that is secured to your skin. On Tuesday, you may pull the string gently to remove the stent. Most patients find it easiest to do in the shower/bath, or while sitting on the toilet. The following attachments cannot be sent through Care Everywhere.Cystoscopy Discharge Instructions (Spanish)Ureteroscopy (Spanish)Laser Lithotripsy for Kidney Stones Discharge Instructions (Spanish)Ureteral Stent Discharge Instructions (Spanish)documented in this encounter [facility] 01-06-2024 Note Formatting of this n ote might be different from the original. PreOp Dx right renal calculus PostOp Dx Same Operation Cystoscopy, retrograde pyelogram, flouroscopy, right ureteroscopy, laser lithotripsy, ureteral stent change Surgeon Sarath Ramos MD Assist None EBL Minimal Drains 6 fr X 26cmJJ w/string Gusman none Specimen none Condition To PACU This is a 73 y.o. patient who presents with a renal calculus. She has had previous laser lithotripsy with stent placement. 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 After having a discussion on treatment options, risks and benefits, the patient wishes to proceed forward with surgical intervention Patient was brought to the operating room. A thorough time out was performed and everyone present was in agreement. Patient was placed on OR table. Anesthesia and lines were maintained by the anesthesia team. Patient was placed in the dorsal lithotomy position. Prepped and draped in usual fashion. Pressure points were padded. A cystourethroscope was inserted through the urethra and the bladder was inspected. The indwelling stent was grasped and removed Retrograde pyelograms were performed under fluoroscopic visualization on the right side, there was hydronephrosis. A sensor wire was advanced to the level of the kidney. A 12/14 fr ureteral access sheath was advanced over the wire under fluoroscopy. A flexible ureteroscope was passed through the access sheath. The ureteroscope could not advance into the kidney without the wire to help straighten out the UPJ, there was a sharp turn as it enters the renal pelvis The renal pelvis was dilated The stone was visualized and laser lithotripsied using the holmium laser. The fragments were dusted using TERESITA laser A 6 fr X 26cmJJ was advanced over the wire through the cystoscope under fluoroscopic visualization. Once in position the wire was removed. A good curl was noted in the kidney and the bladder. The bladder was emptied and patient awoken from anesthesia. Plan will be for stent removal in 4 days, then follow up for [facility] three scan [facility] 01-06-2024 Note Formatting of this n ote might be different from the original. PreOp Dx right renal calculus PostOp Dx Same Operation Cystoscopy, retrograde pyelogram, flouroscopy, right ureteroscopy, laser lithotripsy, ureteral stent change Surgeon Sarath Ramos MD Assist None EBL Minimal Drains 6 fr X 26cmJJ w/string Gusman none Specimen none Condition To PACU This is a 73 y.o. patient who presents with a renal calculus. She has had previous laser lithotripsy with stent placement. 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 After having a discussion on treatment options, risks and benefits, the patient wishes to proceed forward with surgical intervention Patient was brought to the operating room. A thorough time out was performed and everyone present was in agreement. Patient was placed on OR table. Anesthesia and lines were maintained by the anesthesia team. Patient was placed in the dorsal lithotomy position. Prepped and draped in usual fashion. Pressure points were padded. A cystourethroscope was inserted through the urethra and the bladder was inspected. The indwelling stent was grasped and removed Retrograde pyelograms were performed under fluoroscopic visualization on the right side, there was hydronephrosis. A sensor wire was advanced to the level of the kidney. A 12/14 fr ureteral access sheath was advanced over the wire under fluoroscopy. A flexible ureteroscope was passed through the access sheath. The ureteroscope could not advance into the kidney without the wire to help straighten out the UPJ, there was a sharp turn as it enters the renal pelvis The renal pelvis was dilated The stone was visualized and laser lithotripsied using the holmium laser. The fragments were dusted using TERESITA laser A 6 fr X 26cmJJ was advanced over the wire through the cystoscope under fluoroscopic visualization. Once in position the wire was removed. A good curl was noted in the kidney and the bladder. The bladder was emptied and patient awoken from anesthesia. Plan will be for stent removal in 4 days, then follow up for mag three scan [facility] 01-06-2024 History and physical note Images from the original note were not included. Department of Urology Attending Pre-operative History and Physical DIAGNOSIS: right renal calculi INDICATION: above PROCEDURE: right ureteroscopy, laser lithotripsy CHIEF COMPLAINT: kidney stone History Obtained From: patient HISTORY OF PRESENT ILLNESS: The patient is a 73 y.o. female with significant past medical history of nephrolithiasis who presents with kidney stone Past Medical History: Past Medical History: Diagnosis Date Arthritis GERD (gastroesophageal reflux disease) Hyperlipidemia Hypertension Kidney stone Mitral valve disorder prolapse Thyroid disease hypothyroidism Past Surgical History: Past Surgical History: Procedure Laterality Date BLADDER SURGERY prolapse COLONOSCOPY EYE SURGERY Bilateral cataract HYSTERECTOMY OTHER SURGICAL HISTORY Right 03/12/2022 Percutaneous nephrolithotomy with JJ stent placemet OTHER SURGICAL HISTORY Right 03/12/2022 Neph Tube Placement PERCUTANEOUS NEPHROLITHOTRIPSY Left 09/24/2022 TOTAL KNEE ARTHROPLASTY Right 11/2022 NEPHROURETREAL CATHETER PLACEMENT NEW ACCESS (HISTORICAL) Left 09/24/2022 Medications Prior to Admission: No current facility-administered medications on file prior to encounter. Current Outpatient Medications on File Prior to Encounter Medication Sig Dispense Refill acetaminophen (Tylenol) 325 MG tablet Take by mouth every 6 hours as needed. amLODIPine (Norvasc) 5 MG tablet Take 5 mg by mouth daily. levothyroxine (Synthroid, Levoxyl) 112 MCG tablet Take 100 mcg by mouth every morning (before breakfast). LORazepam (Ativan) 0.5 MG tablet Take 0.5 mg by mouth in the morning and 0.5 mg before bedtime. losartan (Cozaar) 25 MG tablet Take 50 mg by mouth daily. ascorbic acid (Vitamin C) 500 mg chewable tablet Chew 500 mg. pantoprazole (ProtoNix) 40 MG EC tablet Take 40 mg by mouth Daily as needed. Allergies: Cyclobenzaprine, Prednisone, Promethazine, Statins, Hydrocodone, Lisinopril, and Sulfa antibiotics History of allergic reaction to anesthesia: no REVIEW OF SYSTEMS: CONSTITUTIONAL: negative EYES: negative HEENT: negative RESPIRATORY: negative CARDIOVASCULAR: negative GASTROINTESTINAL: negative GENITOURINARY: negative HEMATOLOGIC/LYMPHATIC: negative ALLERGIC/IMMUNOLOGIC: negative ENDOCRINE: negative MUSCULOSKELETAL: negative NEUROLOGICAL: negative BEHAVIOR/PSYCH: negative PHYSICAL EXAM: 10/25/2022 11:14 AM 12/02/2023 9:07 AM 12/02/2023 9:14 AM 12/06/2023 6:59 AM 12/06/2023 9:35 AM 12/06/2023 9:45 AM 01/06/2024 5:51 AM Vitals Systolic 144 123 153 119 111 129 Diastolic 82 74 92 72 80 89 Heart Rate 71 74 84 63 68 69 Temp 36.4 C (97.6 F) 36.1 C (97 F) 36.7 C (98 F) 36.2 C (97.1 F) Resp 18 16 10 16 SpO2 99 % 96 % 100 % 100 % 100 % Height (in) 5' 2" (1.575 m) 5' 3" (1.6 m) 5' 3" (1.6 m) 5' 2.99" (1.6 m) Weight (lb) 144 150 150 149.91 BMI 26.34 kg/m2 26.57 kg/m2 26.57 kg/m2 26.56 kg/m2 BSA (m2) 1.69 m2 1.74 m2 1.74 m2 1.74 m2 Eyes: lids and lashes normal and extra-ocular muscles intact Head/ENT: normocepalic, without obvious abnormality, atraumatic Neck: skin normal and no stridor Heart: no edema Lungs: no increased work of breathing Abdomen: non-distended Extremities: No clubbing, cyanosis, or edema DATA: ASSESSMENT AND PLAN: 1. Patient is a 73 y.o. female with above specified procedure planned right ureteroscopy and laser lithotripsy 2. Procedure options, risks and benefits reviewed with patient. patient expresses understanding. [facility] Phone: 01-06-2024 History and physical note Images from the original note were not included. Department of Urology Attending Pre-operative History and Physical DIAGNOSIS: right renal calculi INDICATION: above PROCEDURE: right ureteroscopy, laser lithotripsy CHIEF COMPLAINT: kidney stone History Obtained From: patient HISTORY OF PRESENT ILLNESS: The patient is a 73 y.o. female with significant past medical history of nephrolithiasis who presents with kidney stone Past Medical History: Past Medical History: Diagnosis Date Arthritis GERD (gastroesophageal reflux disease) Hyperlipidemia Hypertension Kidney stone Mitral valve disorder prolapse Thyroid disease hypothyroidism Past Surgical History: Past Surgical History: Procedure Laterality Date BLADDER SURGERY prolapse COLONOSCOPY EYE SURGERY Bilateral cataract HYSTERECTOMY OTHER SURGICAL HISTORY Right 03/12/2022 Percutaneous nephrolithotomy with JJ stent placemet OTHER SURGICAL HISTORY Right 03/12/2022 Neph Tube Placement PERCUTANEOUS NEPHROLITHOTRIPSY Left 09/24/2022 TOTAL KNEE ARTHROPLASTY Right 11/2022 NEPHROURETREAL CATHETER PLACEMENT NEW ACCESS (HISTORICAL) Left 09/24/2022 Medications Prior to Admission: No current facility-administered medications on file prior to encounter. Current Outpatient Medications on File Prior to Encounter Medication Sig Dispense Refill acetaminophen (Tylenol) 325 MG tablet Take by mouth every 6 hours as needed. amLODIPine (Norvasc) 5 MG tablet Take 5 mg by mouth daily. levothyroxine (Synthroid, Levoxyl) 112 MCG tablet Take 100 mcg by mouth every morning (before breakfast). LORazepam (Ativan) 0.5 MG tablet Take 0.5 mg by mouth in the morning and 0.5 mg before bedtime. losartan (Cozaar) 25 MG tablet Take 50 mg by mouth daily. ascorbic acid (Vitamin C) 500 mg chewable tablet Chew 500 mg. pantoprazole (ProtoNix) 40 MG EC tablet Take 40 mg by mouth Daily as needed. Allergies: Cyclobenzaprine, Prednisone, Promethazine, Statins, Hydrocodone, Lisinopril, and Sulfa antibiotics History of allergic reaction to anesthesia: no REVIEW OF SYSTEMS: CONSTITUTIONAL: negative EYES: negative HEENT: negative RESPIRATORY: negative CARDIOVASCULAR: negative GASTROINTESTINAL: negative GENITOURINARY: negative HEMATOLOGIC/LYMPHATIC: negative ALLERGIC/IMMUNOLOGIC: negative ENDOCRINE: negative MUSCULOSKELETAL: negative NEUROLOGICAL: negative BEHAVIOR/PSYCH: negative PHYSICAL EXAM: 10/25/2022 11:14 AM 12/02/2023 9:07 AM 12/02/2023 9:14 AM 12/06/2023 6:59 AM 12/06/2023 9:35 AM 12/06/2023 9:45 AM 01/06/2024 5:51 AM Vitals Systolic 144 123 153 119 111 129 Diastolic 82 74 92 72 80 89 Heart Rate 71 74 84 63 68 69 Temp 36.4 C (97.6 F) 36.1 C (97 F) 36.7 C (98 F) 36.2 C (97.1 F) Resp 18 16 10 16 SpO2 99 % 96 % 100 % 100 % 100 % Height (in) 5' 2" (1.575 m) 5' 3" (1.6 m) 5' 3" (1.6 m) 5' 2.99" (1.6 m) Weight (lb) 144 150 150 149.91 BMI 26.34 kg/m2 26.57 kg/m2 26.57 kg/m2 26.56 kg/m2 BSA (m2) 1.69 m2 1.74 m2 1.74 m2 1.74 m2 Eyes: lids and lashes normal and extra-ocular muscles intact Head/ENT: normocepalic, without obvious abnormality, atraumatic Neck: skin normal and no stridor Heart: no edema Lungs: no increased work of breathing Abdomen: non-distended Extremities: No clubbing, cyanosis, or edema DATA: ASSESSMENT AND PLAN: 1. Patient is a 73 y.o. female with above specified procedure planned right ureteroscopy and laser lithotripsy 2. Procedure options, risks and benefits reviewed with patient. patient expresses understanding. documented in this encounter [facility] 12-06-2023 Note Formatting of this n ote might be different from the original. Patient tolerating PO, pain controlled, has ambulated and voided x2. Discharge instructions completed with patient and family at bedside. [facility] 12-06-2023 Miscellaneous Notes Patient tolerating PO, pain controlled, has ambulated and voided x2. Discharge instructions completed with patient and family at bedside. PreOp Dx multiple large right renal calculi, recurrent UTI PostOp Dx Same, right UPJ obstruction Operation Cystoscopy, retrograde pyelogram, flouroscopy, right ureteroscopy, laser lithotripsy, ureteral stent placement Surgeon Sarath Ramos MD Assist None EBL Minimal Drains 6 fr X 26cmJJ Gusman none Specimen none Condition To PACU This is a 73 y.o. patient who presents with recurrent UTI, right hydronephrosis and multiple right renal calculi. After having a discussion on treatment options, risks and benefits, the patient wishes to proceed forward with surgical intervention Patient was brought to the operating room. A thorough time out was performed and everyone present was in agreement. Patient was placed on OR table. Anesthesia and lines were maintained by the anesthesia team. Patient was placed in the dorsal lithotomy position. Prepped and draped in usual fashion. Pressure points were padded. A cystourethroscope was inserted through the urethra and the bladder was inspected. Retrograde pyelograms were performed under fluoroscopic visualization on the right side. There was noted to be a brisk flow of contrast past a UPJ obstruction with hydronephrosis A sensor wire was advanced to the level of the kidney. A 12/14 fr ureteral access sheath was advanced over the wire under fluoroscopy. A flexible ureteroscope was passed through the access sheath. There was noted to be narrowing of the UPJ, however the scope was able to pass, it was slit like in appearance. The stone was visualized and laser lithotripsied using the holmium laser. The fragments were dusted using TERESITA laser Two large collections of stone were lasered A 6 fr X 26cmJJ was advanced over the wire through the cystoscope under fluoroscopic visualization. Once in position the wire was removed. A good curl was noted in the kidney and the bladder. The bladder was emptied and patient awoken from anesthesia. Plan will be for second look and stent removal in a few weeks documented in this encounter [facility] 12-06-2023 Note Formatting of this n ote might be different from the original. PreOp Dx multiple large right renal calculi, recurrent UTI PostOp Dx Same, right UPJ obstruction Operation Cystoscopy, retrograde pyelogram, flouroscopy, right ureteroscopy, laser lithotripsy, ureteral stent placement Surgeon Sarath Ramos MD Assist None EBL Minimal Drains 6 fr X 26cmJJ Gusman none Specimen none Condition To PACU This is a 73 y.o. patient who presents with recurrent UTI, right hydronephrosis and multiple right renal calculi. After having a discussion on treatment options, risks and benefits, the patient wishes to proceed forward with surgical intervention Patient was brought to the operating room. A thorough time out was performed and everyone present was in agreement. Patient was placed on OR table. Anesthesia and lines were maintained by the anesthesia team. Patient was placed in the dorsal lithotomy position. Prepped and draped in usual fashion. Pressure points were padded. A cystourethroscope was inserted through the urethra and the bladder was inspected. Retrograde pyelograms were performed under fluoroscopic visualization on the right side. There was noted to be a brisk flow of contrast past a UPJ obstruction with hydronephrosis A sensor wire was advanced to the level of the kidney. A 12/14 fr ureteral access sheath was advanced over the wire under fluoroscopy. A flexible ureteroscope was passed through the access sheath. There was noted to be narrowing of the UPJ, however the scope was able to pass, it was slit like in appearance. The stone was visualized and laser lithotripsied using the holmium laser. The fragments were dusted using TERESITA laser Two large collections of stone were lasered A 6 fr X 26cmJJ was advanced over the wire through the cystoscope under fluoroscopic visualization. Once in position the wire was removed. A good curl was noted in the kidney and the bladder. The bladder was emptied and patient awoken from anesthesia. Plan will be for second look and stent removal in a few weeks [facility] 12-06-2023 History and physical note Interval History and Physical I have interviewed and examined the patient and reviewed the recent History and Physical. There have been no changes to the recent H&P documentation. The H&P resides on a progress note on this patient's chart. The patient understands the planned operation and its associated risks and benefits and agrees to proceed. The surgical consent form has been signed. BP (!) 153/92 Pulse 84 Temp 36.1 C (97 F) (Temporal) Resp 16 Ht 5' 3" (1.6 m) Wt 150 lb (68 kg) SpO2 96% BMI 26.57 kg/m [employer] Work Phone: 12-06-2023 History and physical note Interval History and Physical I have interviewed and examined the patient and reviewed the recent History and Physical. There have been no changes to the recent H&P documentation. The H&P resides on a progress note on this patient's chart. The patient understands the planned operation and its associated risks and benefits and agrees to proceed. The surgical consent form has been signed. BP (!) 153/92 Pulse 84 Temp 36.1 C (97 F) (Temporal) Resp 16 Ht 5' 3" (1.6 m) Wt 150 lb (68 kg) SpO2 96% BMI 26.57 kg/m documented in this encounter [facility] 11-22-2023 Note . MICRO - Microbiology PROCEDURE: Urine Culture [*1] SOURCE: Urine, Pedibag BODY SITE: COLLECTED DATE/TIME: 11/20/2023 14:23 EST RECEIVED DATE/TIME: 11/21/2023 00:23 EST START DATE/TIME: 11/21/2023 00:23 EST FREE TEXT SOURCE: FINAL REPORTS Final Report [] Verified Date/Time/Personnel: 11/22/2023 13:18 EST 10,000 - 50,000 cfu/ml Toni albicans Contact Microbiology within 72 hours if further identification is indicated ([id number]). [place] counts from a single urine are equivocal in determining infection vs. colonization of yeast. Multiple cultures at least 24 hours apart may be helpful in differentiating colonization from infection. SUSCEPTIBILITY RESULTS Toni albicans Antibiotic MEGGAN Dilut MEGGAN Inter ID Panel Not Not Applicable Applicable Performing Locations *1: This test was performed at: [facility], [address] [place] [address], [id number] , [facility] ([place]) 11-22-2023 Hospital Discharge instructions Patient Education 11/22/2023 01:01:04 Vaginal Infection: Yeast (Candidiasis) Vaginal Infection: Yeast (Candidiasis) Yeast infection occurs when yeast in the vagina increase and attacks the vaginal tissues. Yeast is a type of fungus. These infections are often caused by a type of yeast called Toni albicans. Other species of yeast can also cause infections. Factors that may make infection more likely include recent antibiotic use, douching, or increased sex. Yeast infections are more common in women who have diabetes, or are obese or , or have a weak immune system. Symptoms of yeast infection Clumpy or thin, white discharge, which may look like cottage cheese No odor or minimal odor Severe vaginal itching or burning Burning with urination Swelling, redness of vulva Pain during sex Treating yeast infection Yeast infection is treated with a vaginal antifungal cream. In some cases, antifungal pills are prescribed instead. During treatment: Finish all of your medicine, even if your symptoms go away. Apply the cream before going to bed. Lie flat after applying so that it doesn't drip out. Do not douche or use tampons. Don't rely on a diaphragm or condoms, since the cream may weaken them. Avoid intercourse if advised by your healthcare provider. Should I treat a yeast infection myself? Discuss with your healthcare provider whether you should use hxwu-oox-yvgcije medicines to treat a yeast infection. Self-treatment may depend on whether: You've had a yeast infection in the past. You're at risk for STDs. Call your healthcare provider if symptoms do not go away or come back after treatment. [id number] [employer]. [address] [place] [address], [place] [address]. All rights reserved. This information is not intended as a substitute for professional medical care. Always follow your healthcare professional's instructions. Follow Up Care 11/22/2023 00:30:20 With:JLUIS BEJARANO MD, [facility] Address: [address] [place] [phone] When:2-4 days [facility] 11-22-2023 Note Discharge Instructions Thank you for allowing [facility] to assist you with your healthcare needs. The following is important discharge information regarding your hospital visit. Diagnosis from Today's Visit Hematuria What to Do Next Instructions from Your Care Team No qualifying data available. Post Acute Orders No qualifying data available. You Need to Schedule the Following Appointments Follow Up with JLUIS BEJARANO MD, [facility] [employer] When Within 2-4 days Where: [address] [place] [phone] Allergies Statins (myalgias) Flexeril (Irregular heart beat) lisinopril (Cough) predniSONE promethazine (Irregular heart beat) Medications Please ask your primary doctor or pharmacist before taking any other medication not listed, including over the counter drugs, herbal medications, vitamins and or supplements as they may interact with your home medications. What How Much When Instructions Last Dose New clotrimazole topical (clotrimazole 2% vaginal cream with applicator) 1 application Vaginal Daily at bedtime Duration: 3 Days Printed Prescription Unchanged amLODIPine (amLODIPine 5 mg oral tablet) 1 tab(s) by mouth Once a day Duration: 90 Days Unchanged amoxicillin-clavulanate (amoxicillin-clavulanate 875 mg-125 mg oral tablet) Unchanged ascorbic acid (Vitamin C 500 mg oral tablet) 1 tab(s) by mouth Once a day Duration: 90 Days Unchanged cefdinir (cefdinir 300 mg oral capsule) 1 cap by mouth Every 12 hours Duration: 10 Days Unchanged levothyroxine (Synthroid 100 mcg (0.1 mg) oral tablet) 1 tab(s) by mouth Once a day dispense name brand synthroid Unchanged losartan (losartan 25 mg oral tablet) 2 tab(s) by mouth Once a day Duration: 90 Days Unchanged phenazopyridine (Azo-Standard 95 mg oral tablet) 1 tab(s) by mouth Two (2) times a day Duration: 3 Days Please take this list to your next doctor s visit. Bring all medications you take, including over the counter medications, herbals and other supplements with you to your doctor s visit. Patients and families are reminded to discard old lists and to update any records with all medication providers or retail pharmacies. Medication Leaflets clotrimazole topical (kloe TRIM a zolmolly) Anti-Fungal Liquid, FungiCURE Pump Cedar, Lotrimin AF Cream for Ringworm, Lotrimin AF For Her, Lotrimin AF Jock Itch, MPM Anti-Fungal, Prescription Strength Cruex What is the most important information I should know about clotrimazole topical? Follow all directions on your medicine label and package. Tell each of your healthcare providers about all your medical conditions, allergies, and all medicines you use. What is clotrimazole topical? Clotrimazole topical is an antifungal medication that fights infections caused by fungus. Clotrimazole topical (for the skin) is used to treat skin infections such as athlete's foot, jock itch, ringworm, and yeast infections. Clotrimazole topical may also be used for purposes not listed in this medication guide. What should I discuss with my healthcare provider before using clotrimazole topical? You should not use clotrimazole topical if you are allergic to it. Clotrimazole topical is not expected to harm an unborn baby. Tell your doctor if you are or plan to become during treatment. It is not known whether clotrimazole topical passes into breast milk or if it could harm a nursing baby. Tell your doctor if you are breast-feeding a baby. How should I use clotrimazole topical? Use exactly as directed on the label, or as prescribed by your doctor. Do not use in larger or smaller amounts or for longer than recommended. Do not take by mouth. Clotrimazole topical is for use only on the skin. Wash your hands before and after using this medicine, unless you are using it to treat a hand infection. Clean and dry the affected area. Apply a small amount of the cream (usually twice daily) for 2 to 4 weeks. Do not cover the treated skin area unless your doctor tells you to. Avoid using bandages or dressings that do not allow air circulation. A light cotton-gauze dressing may be used to protect clothing. Use this medicine for the full prescribed length of time. Your symptoms may improve before the infection is completely cleared. Skipping doses may also increase your risk of further infection that is resistant to antifungal medicine. Call your doctor if your symptoms get worse, or if your condition does not improve after 4 weeks of treatment. Store at room temperature away from moisture and heat. What happens if I miss a dose? Apply the missed dose as soon as you remember. Skip the missed dose if it is almost time for your next scheduled dose. Do not use extra medicine to make up the missed dose. What happens if I overdose? An overdose of clotrimazole topical is not expected to be dangerous. Seek emergency medical attention or call the Poison Help line at if anyone has accidentally swallowed the medication. What should I avoid while using clotrimazole topical? Avoid getting this medication in your eyes, nose, or mouth. Avoid using other skin medications on the areas you treat with clotrimazole topical unless your doctor tells you to. Avoid wearing tight-fitting, synthetic clothing that doesn't allow air circulation. Wear clothing made of loose cotton and other natural fibers until the infection is healed. What are the possible side effects of clotrimazole topical? Get emergency medical help if you have signs of an allergic reaction: hives; difficult breathing; swelling of your face, lips, tongue, or throat. Stop using clotrimazole topical and call your doctor at once if you have: severe blistering of treated skin; swelling, redness, or oozing; or severe burning, itching, or other irritation. This is not a complete list of side effects and others may occur. Call your doctor for medical advice about side effects. You may report side effects to FDA at 5-620-PTG-4148. What other drugs will affect clotrimazole topical? It is not likely that other drugs you take orally or inject will have an effect on topically applied clotrimazole. But many drugs can interact with each other. Tell each of your health care providers about all medicines you use, including prescription and pxtx-atp-tokxlkr medicines, vitamins, and herbal products. Where can I get more information? Your pharmacist can provide more information about clotrimazole topical. Remember, keep this and all other medicines out of the reach of children, never share your medicines with others, and use this medication only for the indication prescribed. Every effort has been made to ensure that the information provided by [employer] is accurate, up-to-date, and complete, but no guarantee is made to that effect. Drug information contained herein may be time sensitive. [employer] information has been compiled for use by healthcare practitioners and consumers in the [place] and therefore [employer] does not warrant that uses outside of the [place] are appropriate, unless specifically indicated otherwise. [facility] drug information does not endorse drugs, diagnose patients or recommend therapy. [employer] drug information is an informational resource designed to assist licensed healthcare practitioners in caring for their patients and/or to serve consumers viewing this service as a supplement to, and not a substitute for, the expertise, skill, knowledge and judgment of healthcare practitioners. The absence of a warning for a given drug or drug combination in no way should be construed to indicate that the drug or drug combination is safe, effective or appropriate for any given patient. [employer] does not assume any responsibility for any aspect of healthcare administered with the aid of information [employer] provides. The information contained herein is not intended to cover all possible uses, directions, precautions, warnings, drug interactions, allergic reactions, or adverse effects. If you have questions about the drugs you are taking, check with your doctor, nurse or pharmacist. Copyright 8007-8488 [employer]. Version: 6.01. Revision Date: 06/28/2023. clotrimazole vaginal (kloe TRIM a zole) Clotrimazole-3 What is the most important information I should know about clotrimazole vaginal? Follow all directions on your medicine label and package. Tell each of your healthcare providers about all your medical conditions, allergies, and all medicines you use. What is clotrimazole vaginal? Clotrimazole is an antifungal medication that fights infections caused by fungus. Clotrimazole vaginal (for use in the vagina) is used to treat vaginal toni (yeast) infections. Clotrimazole vaginal may also be used for purposes not listed in this medication guide. What should I discuss with my healthcare provider before using clotrimazole vaginal? You should not use clotrimazole vaginal if you are allergic to it. If this is the first time you have ever had symptoms of a vaginal yeast infection, ask your doctor before using clotrimazole vaginal. Tell your doctor if you have had more than 3 vaginal infections within 6 months. Frequent vaginal yeast infections that do not clear up with treatment may be a sign of a more serious condition. Ask a doctor or pharmacist if it is safe for you to use this medicine if you have other medical conditions, especially: fever, chills, pain in your back or shoulder; stomach pain, vomiting; foul-smelling vaginal discharge; diabetes; or HIV or AIDS. FDA category B. Clotrimazole vaginal is not expected to harm an unborn baby. Tell your doctor if you are or plan to become during treatment. Do not use clotrimazole vaginal without medical advice if you are breast-feeding a baby. Do not give this medicine to a child younger than 12 years old without medical advice. How should I use clotrimazole vaginal? Use exactly as directed on the label, or as prescribed by your doctor. Do not use in larger or smaller amounts or for longer than recommended. Wash your hands before and after using this medication. Insert the tablet, suppository, or cream into the vagina using the applicator as directed. Use this medicine for the full prescribed length of time, even during your menstrual period. Your symptoms may improve before the infection is completely cleared. If the infection does not clear up, or if it appears to get worse, see your doctor. Call your doctor if your symptoms do not improve after 3 days of treatment, or if they last longer than a week. Tell your doctor right away if you have a skin rash or hives, stomach pain, fever, chills, nausea, vomiting, or foul-smelling vaginal discharge. You can use a sanitary napkin to prevent the medication from staining your clothing but do not use a tampon. Store at room temperature away from moisture and heat. What happens if I miss a dose? Use the missed dose as soon as you remember. Skip the missed dose if it is almost time for your next scheduled dose. Do not use extra medicine to make up the missed dose. What happens if I overdose? Seek emergency medical attention or call the Poison Help line at . What should I avoid while using clotrimazole vaginal? Do not have sexual intercourse. This medicine will not prevent the infection from spreading to your partner. Clotrimazole topical can also cause damage to a condom or a diaphragm. These forms of control may be less effective if you use them during treatment. Avoid getting this medicine in your eyes, nose, or mouth. Avoid wearing tight-fitting, synthetic clothing that doesn't allow air circulation. Wear clothing made of loose cotton and other natural fibers until the infection is healed. What are the possible side effects of clotrimazole vaginal? Get emergency medical help if you have any of these signs of an allergic reaction: hives; difficult breathing; swelling of your face, lips, tongue, or throat. Call your doctor at once if you have new or worsening vaginal symptoms. Common side effects may include: slight increase in vaginal discomfort (burning, itching, irritation). This is not a complete list of side effects and others may occur. Call your doctor for medical advice about side effects. You may report side effects to FDA at 8-383-ROD-8133. What other drugs will affect clotrimazole vaginal? There may be other drugs that can interact with clotrimazole vaginal. Tell your doctor about all medications you use. This includes prescription, bfgj-kps-ygbypgj, vitamin, and herbal products. Do not start a new medication without telling your doctor. Where can I get more information? Your pharmacist can provide more information about clotrimazole vaginal. Remember, keep this and all other medicines out of the reach of children, never share your medicines with others, and use this medication only for the indication prescribed. Every effort has been made to ensure that the information provided by [employer]. ('[employer]') is accurate, up-to-date, and complete, but no guarantee is made to that effect. Drug information contained herein may be time sensitive. [facility] [facility] information has been compiled for use by healthcare practitioners and consumers in the [place] and therefore [employer] does not warrant that uses outside of the [place] are appropriate, unless specifically indicated otherwise. [employer]'s drug information does not endorse drugs, diagnose patients or recommend therapy. [facility] drug information is an informational resource designed to assist licensed healthcare practitioners in caring for their patients and/or to serve consumers viewing this service as a supplement to, and not a substitute for, the expertise, skill, knowledge and judgment of healthcare practitioners. The absence of a warning for a given drug or drug combination in no way should be construed to indicate that the drug or drug combination is safe, effective or appropriate for any given patient. [facility] does not assume any responsibility for any aspect of healthcare administered with the aid of information [facility] provides. The information contained herein is not intended to cover all possible uses, directions, precautions, warnings, drug interactions, allergic reactions, or adverse effects. If you have questions about the drugs you are taking, check with your doctor, nurse or pharmacist. Copyright 0826-9282 [facility] [employer]. Version: 6.01. Revision Date: 07/14/2023. Education Materials Vaginal Infection: Yeast (Candidiasis) Yeast infection occurs when yeast in the vagina increase and attacks the vaginal tissues. Yeast is a type of fungus. These infections are often caused by a type of yeast called Toni albicans. Other species of yeast can also cause infections. Factors that may make infection more likely include recent antibiotic use, douching, or increased sex. Yeast infections are more common in women who have diabetes, or are obese or , or have a weak immune system. Symptoms of yeast infection Clumpy or thin, white discharge, which may look like cottage cheese No odor or minimal odor Severe vaginal itching or burning Burning with urination Swelling, redness of vulva Pain during sex Treating yeast infection Yeast infection is treated with a vaginal antifungal cream. In some cases, antifungal pills are prescribed instead. During treatment: Finish all of your medicine, even if your symptoms go away. Apply the cream before going to bed. Lie flat after applying so that it doesn't drip out. Do not douche or use tampons. Don't rely on a diaphragm or condoms, since the cream may weaken them. Avoid intercourse if advised by your healthcare provider. Should I treat a yeast infection myself? Discuss with your healthcare provider whether you should use ezfr-qrx-wgjdsca medicines to treat a yeast infection. Self-treatment may depend on whether: You've had a yeast infection in the past. You're at risk for STDs. Call your healthcare provider if symptoms do not go away or come back after treatment. 8429-9887 [employer]. [address] [place] [address], [place] [address]. All rights reserved. This information is not intended as a substitute for professional medical care. Always follow your healthcare professional's instructions. Additional Information VACCINATE! IT SAVES LIVES! Members of the community who have not yet received the COVID-19 vaccine and would like to receive it can visit one of [facility] vaccine clinics. There are many vaccine clinic locations within the [facility]. For locations and available times, please visit [email or web address] [email or web address] It is important to note that some COVID mobile vaccine clinics are held outdoors and may be canceled in rainy or stormy conditions. To learn more about pediatric vaccinations (ages 5-11), we invite you to visit the [facility] webpage. [email or web address]/pa [email or web address]-Cvdsb-Xpxmzpeabng-Freque fdua-Ezool-Kilxavslz.html To learn more about the COVID-19 vaccine, we invite you to visit the CDC website for a list of frequently asked questions. https://www.cdc.gov/coronavirus/2 019-ncov/vaccines/faq.html [facility] Patient Portal Access Instructions: Stay connected with your healthcare team and access your personal medical information anytime with the [facility] Patient Portal. If you would like a full copy of your medical records please contact the [facility] Medical Records Department Tuesday through Tuesday between 8a.m. and 4:30p.m. Please follow the directions below to access the portal: 1.Access the email account you provided upon registration to the hospital.2.Look for an invitation email from [facility].3.Open the email and access the invitation link: Accept Invitation to [facility].Fill in the required salazar to create your account. Sign into [email or web address] with your username and password that you created in the above steps to stay up to date. You can then view a summary of results, a summary of your visits, and the ability to download your summaries to your computer or send the information securely to a physician. Remember that your healthcare information is confidential, so carefully consider who you will allow to register on the [facility] Patient Portal for access to your information. You can also access the [facility] Patient Portal on the [employer] doris. Simply click on "Health Records" under "Health Data" and then click on the [employer] logo. HOW TO SAFELY DISPOSE OF PRESCRIPTION MEDICATIONS Please use one of the following methods to safely dispose of your unused medications. 1.Use a drug disposal kit: the drug disposal pouch allows you to safely discard your old and unused drugs. Ask your nurse to give you one when you are discharged.2.Visit a local take-back location: Many local pharmacies and police departments have programs that collect old and unwanted prescription drugs. Call your local pharmacy or go to [email or web address] to find one close to you.3.Make use of household items: Use cat litter or old coffee grounds to dispose medications if other options are not available. Mix your drugs with these household products, seal them in an airtight container and throw it into the garbage. Call [facility]: [phone] to be sure your drugs can be disposed of in this way. Some medicines may require a different approach.4.Never flush your medications down the toilet. IF YOU HAVE BEEN PRESCRIBED AN OPIOIDS FOR PAIN If you have been prescribed an opioid (such as hydrocodone, oxycodone or morphine), it is critical to understand the possible side effects and risks of opioid pain medications. Even when taken as directed, opioids can have several side effects including: Tolerance, meaning you might need to take more of a medication for the same pain relief. Nausea, vomiting and/or constipation. Sleepiness, dizziness, dry mouth, confusion, depression or itching. Physical dependence, meaning you have withdrawal symptoms when a medication is stopped ? this can develop within a few days. KNOW YOUR RESPONSIBILITIES It is important to know exactly how much and how often to take the opioid pain medications you are prescribed. Never take opioids in higher amounts or more often than prescribed. Do not combine opioids with alcohol or other drugs that cause drowsiness, such as benzodiazepines, also known as benzos, including diazepam and alprazolam, muscle relaxants or sleep aids. Never sell or share prescription opioids. This is illegal. Store opioids in a secure place and out of reach of others (including children, family, friends and visitors). The last page(s) of this document has been signed and retained as a CHART COPY Signatures Patient Education Materials Vaginal Infection: Yeast (Candidiasis) Medication Leaflets clotrimazole topical, clotrimazole vaginal My discharge plan and instructions have been reviewed and explained to me and IKATHYA ANITA L understand my current condition and have read and understand these discharge instructions. I have received a written copy of the plan/instructions. If I have questions, I am aware that I should contact my doctor. 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 But bacteria can get into the urinary tract from the skin around the rectum. Or they can travel in the blood from elsewhere in the body. Once they are in your urinary tract, they can cause infection in the urethra (urethritis), the bladder (cystitis), or the kidneys (pyelonephritis). The most common place for an infection is in the bladder. This is called a bladder infection. This is one of the most common infections in women. Most bladder infections are easily treated. They are not serious unless the infection spreads to the kidney. The phrases "bladder infection," "UTI," and "cystitis" are often used to describe the same thing. But they are not always the same. Cystitis is an inflammation of the bladder. The most common cause of cystitis is an infection. Symptoms The infection causes inflammation in the urethra and bladder. This causes many of the symptoms. The most common symptoms of a bladder infection are: Pain or burning when urinating Having to urinate more often than usual Urgent need to urinate Only a small amount of urine comes out Blood in urine Abdominal discomfort. This is usually in the lower abdomen above the pubic bone. Cloudy urine Strong- or bad-smelling urine Unable to urinate (urinary retention) Unable to hold urine in (urinary incontinence) Fever Loss of appetite Confusion (in older adults) Causes Bladder infections are not contagious. You can't get one from someone else, from a toilet seat, or from sharing a bath. The most common cause of bladder infections is bacteria from the bowels. The bacteria get onto the skin around the opening of the urethra. From there, they can get into the urine and travel up to the bladder, causing inflammation and infection. This usually happens because of: Wiping improperly after urinating. Always wipe from front to back. Bowel incontinence Procedures such as having a catheter inserted Older age Not emptying your bladder. This can allow bacteria a chance to grow in your urine. Dehydration Constipation Sex Use of a diaphragm for control Treatment Bladder infections are diagnosed by a urine test. They are treated with antibiotics and usually clear up quickly without complications. Treatment helps prevent a more serious kidney infection. Medicines Medicines can help in the treatment of a bladder infection: Take antibiotics until they are used up, even if you feel better. It is important to finish them to make sure the infection has cleared. You can use acetaminophen or ibuprofen for pain, fever, or discomfort, unless another medicine was prescribed. If you have chronic liver or kidney disease, talk with your healthcare provider before using these medicines. Also talk with your provider if you've ever had a stomach ulcer or gastrointestinal bleeding, or are taking blood-thinner medicines. If you are given phenazopydridine to reduce burning with urination, it will cause your urine to become a bright orange color. This can stain clothing. Care and prevention These self-care steps can help prevent future infections: Drink plenty of fluids to prevent dehydration and flush out your bladder. Do this unless you must restrict fluids for other health reasons, or your doctor told you not to. Proper cleaning after going to the bathroom is important. Wipe from front to back after using the toilet to prevent the spread of bacteria. Urinate more often. Don't try to hold urine in for a long time. Wear loose-fitting clothes and cotton underwear. Avoid tight-fitting pants. Improve your diet and prevent constipation. Eat more fresh fruit and vegetables, and fiber, and less junk and fatty foods. Avoid sex until your symptoms are gone. Avoid caffeine, alcohol, and spicy foods. These can irritate your bladder. Urinate right after intercourse to flush out your bladder. If you use control pills and have frequent bladder infections, discuss it with your doctor. Follow-up care Call your healthcare provider if all symptoms are not gone after 3 days of treatment. This is especially important if you have repeat infections. If a culture was done, you will be told if your treatment needs to be changed. If directed, you can call to find out the results. If X-rays were done, you will be told if the results will affect your treatment. Call 911 Call 911 if any of the following occur: Trouble breathing Hard to wake up or confusion Fainting or loss of consciousness Rapid heart rate When to seek medical advice Call your healthcare provider right away if any of these occur: Fever of 100.4 F (38.0 C) or higher, or as directed by your healthcare provider Symptoms are not better by the third day of treatment Back or belly (abdominal) pain that gets worse Repeated vomiting, or unable to keep medicine down Weakness or dizziness Vaginal discharge Pain, redness, or swelling in the outer vaginal area (labia) 6708-3287 [employer]. [address] [place] [address]. All rights reserved. This information is not intended as a substitute for professional medical care. Always follow your healthcare professional's instructions. Follow Up Care 11/20/2023 13:02:30 With:STACEY NEWBERRY Address: [address] [place] [address] [place] [address]- [phone] Business (1) When:2-4 days Comments:Take antibiotic as prescribed. You may also take Azo. Return if any worsening or concerning symptoms. Follow-up with your urologist. [facility] 11-20-2023 Emergency department Discharge summary Discharge Instructions Thank you for allowing [facility] to assist you with your healthcare needs. The following is important discharge information regarding your hospital visit. Diagnosis from Today's Visit Urination painful UTI symptoms What to Do Next Instructions from Your Care Team No qualifying data available. Post Acute Orders No qualifying data available. You Need to Schedule the Following Appointments Follow Up with STACEY NEWBERRY When Within 2-4 days Why: Take antibiotic as prescribed. You may also take Azo. Return if any worsening or concerning symptoms. Follow-up with your urologist. Where: [address] [facility] [place] [address] [phone] Business (1) Allergies Statins (myalgias) Flexeril (Irregular heart beat) lisinopril (Cough) predniSONE promethazine (Irregular heart beat) Medications Please ask your primary doctor or pharmacist before taking any other medication not listed, including over the counter drugs, herbal medications, vitamins and or supplements as they may interact with your home medications. What How Much When Instructions Last Dose New cefdinir (cefdinir 300 mg oral capsule) 1 cap by mouth Every 12 hours Duration: 10 Days Printed Prescription New phenazopyridine (Azo-Standard 95 mg oral tablet) 1 tab(s) by mouth Two (2) times a day Duration: 3 Days Printed Prescription Unchanged amLODIPine (amLODIPine 5 mg oral tablet) 1 tab(s) by mouth Once a day Duration: 90 Days Unchanged amoxicillin-clavulanate (amoxicillin-clavulanate 875 mg-125 mg oral tablet) Unchanged ascorbic acid (Vitamin C 500 mg oral tablet) 1 tab(s) by mouth Once a day Duration: 90 Days Unchanged levothyroxine (Synthroid 100 mcg (0.1 mg) oral tablet) 1 tab(s) by mouth Once a day dispense name brand synthroid Unchanged losartan (losartan 25 mg oral tablet) 2 tab(s) by mouth Once a day Duration: 90 Days Please take this list to your next doctor s visit. Bring all medications you take, including over the counter medications, herbals and other supplements with you to your doctor s visit. Patients and families are reminded to discard old lists and to update any records with all medication providers or retail pharmacies. Medication Leaflets cefdinir (PLACIDO antony) What is the most important information I should know about cefdinir? Do not take this medicine if you are allergic to cefdinir, or to similar antibiotics, such as Ceftin, Cefzil, Keflex, and others. What is cefdinir? Cefdinir is a cephalosporin (SEF a low spor in) antibiotic that is used to treat many different types of infections caused by bacteria. Cefdinir may also be used for purposes not listed in this medication guide. What should I discuss with my healthcare provider before taking cefdinir? You should not take this medicine if you are allergic to cefdinir or any other cephalosporin antibiotic (cefadroxil, cefprozil, cefazolin, cefalexin, Keflex, and others). Tell your doctor if you have ever had: kidney disease (or if you are on dialysis); intestinal problems, such as colitis; or an allergy to any drugs (especially penicillins). Cefdinir liquid contains sucrose. Talk to your doctor before using this form of cefdinir if you have diabetes. Tell your doctor if you are or . How should I take cefdinir? Follow all directions on your prescription label and read all medicine guides or instruction sheets. Use the medicine exactly as directed. Shake the oral suspension (liquid) before you measure a dose. Use the dosing syringe provided, or use a medicine dose-measuring device (not a kitchen spoon). You may take cefdinir with or without food. Use this medicine for the full prescribed length of time, even if your symptoms quickly improve. Skipping doses can increase your risk of infection that is resistant to medication. Cefdinir will not treat a viral infection such as the flu or a common cold. Cefdinir can affect the results of certain medical tests. Tell any doctor who treats you that you are using cefdinir. Store at room temperature away from moisture and heat. Throw away any unused cefdinir liquid that is older than 10 days. What happens if I miss a dose? Take the medicine as soon as you can, but skip the missed dose if it is almost time for your next dose. Do not take two doses at one time. What happens if I overdose? Seek emergency medical attention or call the Poison Help line at . Overdose symptoms may include nausea, vomiting, stomach pain, diarrhea, or a seizure. What should I avoid while taking cefdinir? Avoid using antacids or mineral supplements that contain aluminum, magnesium, or iron within 2 hours before or after taking cefdinir. Antacids or iron can make it harder for your body to absorb cefdinir. This does not include baby formula fortified with iron. Antibiotic medicines can cause diarrhea, which may be a sign of a new infection. If you have diarrhea that is watery or bloody, call your doctor before using anti-diarrhea medicine. What are the possible side effects of cefdinir? Get emergency medical help if you have signs of an allergic reaction (hives, difficult breathing, swelling in your face or throat) or a severe skin reaction (fever, sore throat, burning eyes, skin pain, red or purple skin rash with blistering and peeling). Call your doctor at once if you have: severe stomach pain, diarrhea that is watery or bloody (even if it occurs months after your last dose); fever, chills, body aches, flu symptoms; pale skin, easy bruising, unusual bleeding; seizure (convulsions); fever, weakness, confusion; dark colored urine, jaundice (yellowing of the skin or eyes); or kidney problems--little or no urination, swelling in your feet or ankles, feeling tired or short of breath. Common side effects may include: nausea, vomiting, stomach pain, diarrhea; vaginal itching or discharge; headache; or rash (including diaper rash in an taking liquid cefdinir. This is not a complete list of side effects and others may occur. Call your doctor for medical advice about side effects. You may report side effects to FDA at 1-888-NPY-4383. What other drugs will affect cefdinir? Tell your doctor about all your other medicines, especially: probenecid; or vitamin or mineral supplements that contain iron. This list is not complete. Other drugs may affect cefdinir, including prescription and dfyw-acv-lvmqsum medicines, vitamins, and herbal products. Not all possible drug interactions are listed here. Where can I get more information? Your pharmacist can provide more information about cefdinir. Remember, keep this and all other medicines out of the reach of children, never share your medicines with others, and use this medication only for the indication prescribed. Every effort has been made to ensure that the information provided by [employer] is accurate, up-to-date, and complete, but no guarantee is made to that effect. Drug information contained herein may be time sensitive. [facility] [facility] information has been compiled for use by healthcare practitioners and consumers in the [place] and therefore [employer] does not warrant that uses outside of the [place] are appropriate, unless specifically indicated otherwise. [employer]'s drug information does not endorse drugs, diagnose patients or recommend therapy. [facility] drug information is an informational resource designed to assist licensed healthcare practitioners in caring for their patients and/or to serve consumers viewing this service as a supplement to, and not a substitute for, the expertise, skill, knowledge and judgment of healthcare practitioners. The absence of a warning for a given drug or drug combination in no way should be construed to indicate that the drug or drug combination is safe, effective or appropriate for any given patient. [facility] does not assume any responsibility for any aspect of healthcare administered with the aid of information [facility] provides. The information contained herein is not intended to cover all possible uses, directions, precautions, warnings, drug interactions, allergic reactions, or adverse effects. If you have questions about the drugs you are taking, check with your doctor, nurse or pharmacist. Copyright 4128-0334 [facility] [employer]. Version: 9.01. Revision Date: 07/01/2023. Education Materials Bladder Infection, Female (Adult) Urine is normally doesn't have any bacteria in it. But bacteria can get into the urinary tract from the skin around the rectum. Or they can travel in the blood from elsewhere in the body. Once they are in your urinary tract, they can cause infection in the urethra (urethritis), the bladder (cystitis), or the kidneys (pyelonephritis). The most common place for an infection is in the bladder. This is called a bladder infection. This is one of the most common infections in women. Most bladder infections are easily treated. They are not serious unless the infection spreads to the kidney. The phrases "bladder infection," "UTI," and "cystitis" are often used to describe the same thing. But they are not always the same. Cystitis is an inflammation of the bladder. The most common cause of cystitis is an infection. Symptoms The infection causes inflammation in the urethra and bladder. This causes many of the symptoms. The most common symptoms of a bladder infection are: Pain or burning when urinating Having to urinate more often than usual Urgent need to urinate Only a small amount of urine comes out Blood in urine Abdominal discomfort. This is usually in the lower abdomen above the pubic bone. Cloudy urine Strong- or bad-smelling urine Unable to urinate (urinary retention) Unable to hold urine in (urinary incontinence) Fever Loss of appetite Confusion (in older adults) Causes Bladder infections are not contagious. You can't get one from someone else, from a toilet seat, or from sharing a bath. The most common cause of bladder infections is bacteria from the bowels. The bacteria get onto the skin around the opening of the urethra. From there, they can get into the urine and travel up to the bladder, causing inflammation and infection. This usually happens because of: Wiping improperly after urinating. Always wipe from front to back. Bowel incontinence Procedures such as having a catheter inserted Older age Not emptying your bladder. This can allow bacteria a chance to grow in your urine. Dehydration Constipation Sex Use of a diaphragm for control Treatment Bladder infections are diagnosed by a urine test. They are treated with antibiotics and usually clear up quickly without complications. Treatment helps prevent a more serious kidney infection. Medicines Medicines can help in the treatment of a bladder infection: Take antibiotics until they are used up, even if you feel better. It is important to finish them to make sure the infection has cleared. You can use acetaminophen or ibuprofen for pain, fever, or discomfort, unless another medicine was prescribed. If you have chronic liver or kidney disease, talk with your healthcare provider before using these medicines. Also talk with your provider if you've ever had a stomach ulcer or gastrointestinal bleeding, or are taking blood-thinner medicines. If you are given phenazopydridine to reduce burning with urination, it will cause your urine to become a bright orange color. This can stain clothing. Care and prevention These self-care steps can help prevent future infections: Drink plenty of fluids to prevent dehydration and flush out your bladder. Do this unless you must restrict fluids for other health reasons, or your doctor told you not to. Proper cleaning after going to the bathroom is important. Wipe from front to back after using the toilet to prevent the spread of bacteria. Urinate more often. Don't try to hold urine in for a long time. Wear loose-fitting clothes and cotton underwear. Avoid tight-fitting pants. Improve your diet and prevent constipation. Eat more fresh fruit and vegetables, and fiber, and less junk and fatty foods. Avoid sex until your symptoms are gone. Avoid caffeine, alcohol, and spicy foods. These can irritate your bladder. Urinate right after intercourse to flush out your bladder. If you use control pills and have frequent bladder infections, discuss it with your doctor. Follow-up care Call your healthcare provider if all symptoms are not gone after 3 days of treatment. This is especially important if you have repeat infections. If a culture was done, you will be told if your treatment needs to be changed. If directed, you can call to find out the results. If X-rays were done, you will be told if the results will affect your treatment. Call 911 Call 911 if any of the following occur: Trouble breathing Hard to wake up or confusion Fainting or loss of consciousness Rapid heart rate When to seek medical advice Call your healthcare provider right away if any of these occur: Fever of 100.4 F (38.0 C) or higher, or as directed by your healthcare provider Symptoms are not better by the third day of treatment Back or belly (abdominal) pain that gets worse Repeated vomiting, or unable to keep medicine down Weakness or dizziness Vaginal discharge Pain, redness, or swelling in the outer vaginal area (labia) 0506-4363 [employer]. [address] [place] [address]. All rights reserved. This information is not intended as a substitute for professional medical care. Always follow your healthcare professional's instructions. Additional Information VACCINATE! IT SAVES LIVES! Members of the community who have not yet received the COVID-19 vaccine and would like to receive it can visit one of [facility] vaccine clinics. There are many vaccine clinic locations within the [facility]. For locations and available times, please visit [email or web address] It is important to note that some COVID mobile vaccine clinics are held outdoors and may be canceled in rainy or stormy conditions. To learn more about pediatric vaccinations (ages 5-11), we invite you to visit the [facility] webpage. [email or web address] [email or web address]-Deatc-Kguvmazwjqj-[email or web address] peyp-[email or web address]-[email or web address] To learn more about the COVID-19 vaccine, we invite you to visit the CDC website for a list of frequently asked questions. https://www.cdc.gov/coronavirus/2 019-ncov/vaccines/faq.html [facility] Patient Portal Access Instructions: Stay connected with your healthcare team and access your personal medical information anytime with the [facility] Patient Portal. If you would like a full copy of your medical records please contact the [facility] Medical Records Department Tuesday through Tuesday between 8a.m. and 4:30p.m. Please follow the directions below to access the portal: 1.Access the email account you provided upon registration to the [facility].2.Look for an invitation email from [facility].3.Open the email and access the invitation link: Accept Invitation to [facility].Fill in the required salazar to create your account. Sign into [email or web address] with your username and password that you created in the above steps to stay up to date. You can then view a summary of results, a summary of your visits, and the ability to download your summaries to your computer or send the information securely to a physician. Remember that your healthcare information is confidential, so carefully consider who you will allow to register on the [facility] Patient Portal for access to your information. You can also access the [facility] Patient Portal on the [employer] doris. Simply click on "Health Records" under "Health Data" and then click on the [facility] logo. HOW TO SAFELY DISPOSE OF PRESCRIPTION MEDICATIONS Please use one of the following methods to safely dispose of your unused medications. 1.Use a drug disposal kit: the drug disposal pouch allows you to safely discard your old and unused drugs. Ask your nurse to give you one when you are discharged.2.Visit a local take-back location: Many local pharmacies and police departments have programs that collect old and unwanted prescription drugs. Call your local pharmacy or go to http://[facility].[email or web address]/8T7Rn9f to find one close to you.3.Make use of household items: Use cat litter or old coffee grounds to dispose medications if other options are not available. Mix your drugs with these household products, seal them in an airtight container and throw it into the garbage. Call [facility]: [phone] to be sure your drugs can be disposed of in this way. Some medicines may require a different approach.4.Never flush your medications down the toilet. IF YOU HAVE BEEN PRESCRIBED AN OPIOIDS FOR PAIN If you have been prescribed an opioid (such as hydrocodone, oxycodone or morphine), it is critical to understand the possible side effects and risks of opioid pain medications. Even when taken as directed, opioids can have several side effects including: Tolerance, meaning you might need to take more of a medication for the same pain relief. Nausea, vomiting and/or constipation. Sleepiness, dizziness, dry mouth, confusion, depression or itching. Physical dependence, meaning you have withdrawal symptoms when a medication is stopped ? this can develop within a few days. KNOW YOUR RESPONSIBILITIES It is important to know exactly how much and how often to take the opioid pain medications you are prescribed. Never take opioids in higher amounts or more often than prescribed. Do not combine opioids with alcohol or other drugs that cause drowsiness, such as benzodiazepines, also known as benzos, including diazepam and alprazolam, muscle relaxants or sleep aids. Never sell or share prescription opioids. This is illegal. Store opioids in a secure place and out of reach of others (including children, family, friends and visitors). The last page(s) of this document has been signed and retained as a CHART COPY Signatures Patient Education Materials Bladder Infection, Female (Adult) Medication Leaflets cefdinir My discharge plan and instructions have been reviewed and explained to me and I,SURINDER RASHEED understand my current condition and have read and understand these discharge instructions. I have received a written copy of the plan/instructions. If I have questions, I am aware that I should contact my doctor. 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 Patient's further questions if applicable: no Were all questions from office addressed or relayed to the patient from encounter: Yes Colton says if there is anything else that needs to be recommended outside of the antibiotics to please call him back. With the holidays he would want it done after and as well as a procedure was mentioned as well. Please advise [facility] 11-14-2023 Miscellaneous Notes Message released to patient as written. Patient's further questions if applicable: no Were all questions from office addressed or relayed to the patient from encounter: Yes Colton says if there is anything else that needs to be recommended outside of the antibiotics to please call him back. With the holidays he would want it done after and as well as a procedure was mentioned as well. Please advise Left voicemail for patient or son to return call for results and recommendations. ----- Message from ALONDRA Caballero CNP sent at 11/14/2023 11:31 AM EST ----- Please tell the patient that their culture was positive for an infection and an extension of the course of antibiotics has been sent to the pharmacy on file. I want her to have a total of 7 days of antibiotics so I sent her two more days of the Augmentin that Dr. Ramos had already called in for her. He called in 5 days. documented in this encounter [facility] 11-14-2023 Telephone encounter Note Left voicemail for patient or son to return call for results and recommendations. [facility] 11-14-2023 Telephone encounter Note ----- Message from ALONDRA Caballero CNP sent at 11/14/2023 11:31 AM EST ----- Please tell the patient that their culture was positive for an infection and an extension of the course of antibiotics has been sent to the pharmacy on file. I want her to have a total of 7 days of antibiotics so I sent her two more days of the Augmentin that Dr. Ramos had already called in for her. He called in 5 days. [facility] 11-14-2023 Note . MICRO - Microbiology PROCEDURE: Urine Culture [*1] SOURCE: Urine BODY SITE: COLLECTED DATE/TIME: 11/12/2023 00:11 EST RECEIVED DATE/TIME: 11/12/2023 15:06 EST START DATE/TIME: 11/12/2023 15:07 EST FREE TEXT SOURCE: FINAL REPORTS Final Report [] Verified Date/Time/Personnel: 11/14/2023 07:23 EST <10,000 cfu/ml. No Significant growth. Sensitivity not indicated. PRELIMINARY REPORTS Preliminary Report [] Verified Date/Time/Personnel: 11/13/2023 09:57 EST No growth to date Performing Locations *1: This test was performed at: [address], [facility] , [facility] ([place]) 11-12-2023 Hospital Discharge instructions Patient Education 11/12/2023 00:26:03 Urinary Tract Infections in Women Urinary Tract Infections in Women Urinary tract infections (UTIs) are most often caused by bacteria. These bacteria enter the urinary tract. The bacteria may come from outside the body. Or they may travel from the skin outside the rectum or vagina into the urethra. Female anatomy makes it easy for bacteria from the bowel to enter a woman s urinary tract, which is the most common source of UTI. This means women develop UTIs more often than men. Pain in or around the urinary tract is a common UTI symptom. But the only way to know for sure if you have a UTI for the healthcare provider to test your urine. The two tests that may be done are the urinalysis and urine culture. Types of UTIs Cystitis. A bladder infection (cystitis) is the most common UTI in women. You may have urgent or frequent urination. You may also have pain, burning when you urinate, and bloody urine. Urethritis. This is an inflamed urethra, which is the tube that carries urine from the bladder to outside the body. You may have lower stomach or back pain. You may also have urgent or frequent urination. Pyelonephritis. This is a kidney infection. If not treated, it can be serious and damage your kidneys. In severe cases, you may need to stay in the hospital. You may have a fever and lower back pain. Medicines to treat a UTI Most UTIs are treated with antibiotics. These kill the bacteria. The length of time you need to take them depends on the type of infection. It may be as short as 3 days. If you have repeated UTIs, you may need a low-dose antibiotic for several months. Take antibiotics exactly as directed. Don t stop taking them until all of the medicine is gone. If you stop taking the antibiotic too soon, the infection may not go away. You may also develop a resistance to the antibiotic. This can make it much harder to treat. Lifestyle changes to treat and prevent UTIs The lifestyle changes below will help get rid of your UTI. They may also help prevent future UTIs. Drink plenty of fluids. This includes water, juice, or other caffeine-free drinks. Fluids help flush bacteria out of your body. Empty your bladder. Always empty your bladder when you feel the urge to urinate. And always urinate before going to sleep. Urine that stays in your bladder can lead to infection. Try to urinate before and after sex as well. Practice good personal hygiene. Wipe yourself from front to back after using the toilet. This helps keep bacteria from getting into the urethra. Use condoms during sex. These help prevent UTIs caused by sexually transmitted bacteria. Also don't use spermicides during sex. These can increase the risk for UTIs. Choose other forms of control instead. For women who tend to get UTIs after sex, a low-dose of a preventive antibiotic may be used. Be sure to discuss this option with your healthcare provider. Follow up with your healthcare provider as directed. He or she may test to make sure the infection has cleared. If needed, more treatment may be started. 8978-9075 [employer]. [address] [place] [address], [place] [address]. All rights reserved. This information is not intended as a substitute for professional medical care. Always follow your healthcare professional's instructions. Follow Up Care 11/11/2023 23:36:51 With:STACEY NEWBERRY DO Address: [address] [place] [address]- [phone] When:2-4 days [facility] 11-12-2023 Note Discharge Instructions Thank you for allowing [facility] to assist you with your healthcare needs. The following is important discharge information regarding your hospital visit. Diagnosis from Today's Visit Dysuria Low urine output What to Do Next Instructions from Your Care Team No qualifying data available. Post Acute Orders No qualifying data available. You Need to Schedule the Following Appointments Follow Up with STACEY NEWBERRY DO When Within 2-4 days Where: [address] [place] [address]- [phone] Allergies Statins (myalgias) Flexeril (Irregular heart beat) lisinopril (Cough) predniSONE promethazine (Irregular heart beat) Medications Please ask your primary doctor or pharmacist before taking any other medication not listed, including over the counter drugs, herbal medications, vitamins and or supplements as they may interact with your home medications. What How Much When Instructions Last Dose New cephalexin (cephalexin 500 mg oral capsule) 1 cap by mouth Every 12 hours Duration: 7 Days Printed Prescription Unchanged amLODIPine (amLODIPine 5 mg oral tablet) 1 tab(s) by mouth Once a day Duration: 90 Days Unchanged ascorbic acid (Vitamin C 500 mg oral tablet) 1 tab(s) by mouth Once a day Unchanged levothyroxine (Synthroid 100 mcg (0.1 mg) oral tablet) 1 tab(s) by mouth Once a day dispense name brand synthroid Unchanged losartan (losartan 25 mg oral tablet) 2 tab(s) by mouth Once a day Duration: 90 Days Please take this list to your next doctor s visit. Bring all medications you take, including over the counter medications, herbals and other supplements with you to your doctor s visit. Patients and families are reminded to discard old lists and to update any records with all medication providers or retail pharmacies. Medication Leaflets cephalexin (sef a SWAPNA in) What is the most important information I should know about cephalexin? You should not use this medicine if you are allergic to cephalexin or to similar antibiotics, such as Ceftin, Cefzil, Omnicef, and others. Tell your doctor if you are allergic to any drugs, especially penicillins or other antibiotics. What is cephalexin? Cephalexin is a cephalosporin (SEF a low spor in) antibiotic that is used to treat bacterial infections of the lungs, ear, skin, bones, bladder, and kidneys. Cephalexin is used to treat infections in adults and children who are at least 1 year old. Cephalexin may also be used for purposes not listed in this medication guide. What should I discuss with my healthcare provider before taking cephalexin? You should not use this medicine if you are allergic to cephalexin or any other cephalosporin antibiotic (cefdinir, cefadroxil, cefoxitin, cefprozil, ceftriaxone, cefuroxime, Omnicef, and others). Tell your doctor if you have ever had: an allergy to any drug (especially penicillin); liver or kidney disease; or intestinal problems, such as colitis. The liquid form of cephalexin may contain sugar. This may affect you if you have diabetes. Tell your doctor if you are or breast-feeding. How should I take cephalexin? Follow all directions on your prescription label and read all medication guides or instruction sheets. Use the medicine exactly as directed. Do not use cephalexin to treat any condition that has not been checked by your doctor. Measure liquid medicine carefully. Use the dosing syringe provided, or use a medicine dose-measuring device (not a kitchen spoon). Use this medicine for the full prescribed length of time, even if your symptoms quickly improve. Skipping doses can increase your risk of infection that is resistant to medication. Cephalexin will not treat a viral infection such as the flu or a common cold. Do not share cephalexin with another person, even if they have the same symptoms you have. This medicine can affect the results of certain medical tests. Tell any doctor who treats you that you are using cephalexin. Store the tablets and capsules at room temperature away from moisture, heat, and light. Store the liquid medicine in the refrigerator. Throw away any unused liquid after 14 days. What happens if I miss a dose? Take the medicine as soon as you can, but skip the missed dose if it is almost time for your next dose. Do not take two doses at one time. What happens if I overdose? Seek emergency medical attention or call the Poison Help line at . Overdose symptoms may include nausea, vomiting, stomach pain, diarrhea, and blood in your urine. What should I avoid while taking cephalexin? Antibiotic medicines can cause diarrhea, which may be a sign of a new infection. If you have diarrhea that is watery or bloody, call your doctor before using anti-diarrhea medicine. What are the possible side effects of cephalexin? Get emergency medical help if you have signs of an allergic reaction (hives, difficult breathing, swelling in your face or throat) or a severe skin reaction (fever, sore throat, burning eyes, skin pain, red or purple skin rash with blistering and peeling). Call your doctor at once if you have: severe stomach pain, diarrhea that is watery or bloody (even if it occurs months after your last dose); unusual tiredness, feeling light-headed or short of breath; easy bruising, unusual bleeding, purple or red spots under your skin; a seizure; pale skin, cold hands and feet; yellowed skin, dark colored urine; fever, weakness; or pain in your side or lower back, painful urination. Common side effects may include: diarrhea; nausea, vomiting; indigestion, stomach pain; or vaginal itching or discharge. This is not a complete list of side effects and others may occur. Call your doctor for medical advice about side effects. You may report side effects to FDA at 7-552-KJL-8553. What other drugs will affect cephalexin? Tell your doctor about all your other medicines, especially: metformin; or probenecid. This list is not complete. Other drugs may affect cephalexin, including prescription and jnrg-mrx-jltkqeq medicines, vitamins, and herbal products. Not all possible drug interactions are listed here. Where can I get more information? Your pharmacist can provide more information about cephalexin. Remember, keep this and all other medicines out of the reach of children, never share your medicines with others, and use this medication only for the indication prescribed. Every effort has been made to ensure that the information provided by [employer] is accurate, up-to-date, and complete, but no guarantee is made to that effect. Drug information contained herein may be time sensitive. [facility] [facility] information has been compiled for use by healthcare practitioners and consumers in the [place] and therefore [employer] does not warrant that uses outside of the [place] are appropriate, unless specifically indicated otherwise. [facility] drug information does not endorse drugs, diagnose patients or recommend therapy. [facility] drug information is an informational resource designed to assist licensed healthcare practitioners in caring for their patients and/or to serve consumers viewing this service as a supplement to, and not a substitute for, the expertise, skill, knowledge and judgment of healthcare practitioners. The absence of a warning for a given drug or drug combination in no way should be construed to indicate that the drug or drug combination is safe, effective or appropriate for any given patient. [facility] does not assume any responsibility for any aspect of healthcare administered with the aid of information [facility] [facility] provides. The information contained herein is not intended to cover all possible uses, directions, precautions, warnings, drug interactions, allergic reactions, or adverse effects. If you have questions about the drugs you are taking, check with your doctor, nurse or pharmacist. Copyright 2311-3866 [facility] [employer]. Version: 12. Revision Date: 06/29/2023. Education Materials Urinary Tract Infections in Women Urinary tract infections (UTIs) are most often caused by bacteria. These bacteria enter the urinary tract. The bacteria may come from outside the body. Or they may travel from the skin outside the rectum or vagina into the urethra. Female anatomy makes it easy for bacteria from the bowel to enter a woman s urinary tract, which is the most common source of UTI. This means women develop UTIs more often than men. Pain in or around the urinary tract is a common UTI symptom. But the only way to know for sure if you have a UTI for the healthcare provider to test your urine. The two tests that may be done are the urinalysis and urine culture. Types of UTIs Cystitis. A bladder infection (cystitis) is the most common UTI in women. You may have urgent or frequent urination. You may also have pain, burning when you urinate, and bloody urine. Urethritis. This is an inflamed urethra, which is the tube that carries urine from the bladder to outside the body. You may have lower stomach or back pain. You may also have urgent or frequent urination. Pyelonephritis. This is a kidney infection. If not treated, it can be serious and damage your kidneys. In severe cases, you may need to stay in the hospital. You may have a fever and lower back pain. Medicines to treat a UTI Most UTIs are treated with antibiotics. These kill the bacteria. The length of time you need to take them depends on the type of infection. It may be as short as 3 days. If you have repeated UTIs, you may need a low-dose antibiotic for several months. Take antibiotics exactly as directed. Don t stop taking them until all of the medicine is gone. If you stop taking the antibiotic too soon, the infection may not go away. You may also develop a resistance to the antibiotic. This can make it much harder to treat. Lifestyle changes to treat and prevent UTIs The lifestyle changes below will help get rid of your UTI. They may also help prevent future UTIs. Drink plenty of fluids. This includes water, juice, or other caffeine-free drinks. Fluids help flush bacteria out of your body. Empty your bladder. Always empty your bladder when you feel the urge to urinate. And always urinate before going to sleep. Urine that stays in your bladder can lead to infection. Try to urinate before and after sex as well. Practice good personal hygiene. Wipe yourself from front to back after using the toilet. This helps keep bacteria from getting into the urethra. Use condoms during sex. These help prevent UTIs caused by sexually transmitted bacteria. Also don't use spermicides during sex. These can increase the risk for UTIs. Choose other forms of control instead. For women who tend to get UTIs after sex, a low-dose of a preventive antibiotic may be used. Be sure to discuss this option with your healthcare provider. Follow up with your healthcare provider as directed. He or she may test to make sure the infection has cleared. If needed, more treatment may be started. 0749-8035 [employer]. [address] [place] [address], [place] [address]. All rights reserved. This information is not intended as a substitute for professional medical care. Always follow your healthcare professional's instructions. Additional Information VACCINATE! IT SAVES LIVES! Members of the community who have not yet received the COVID-19 vaccine and would like to receive it can visit one of [facility] vaccine clinics. There are many vaccine clinic locations within the [facility]. For locations and available times, please visit [email or web address] [email or web address] It is important to note that some COVID mobile vaccine clinics are held outdoors and may be canceled in rainy or stormy conditions. To learn more about pediatric vaccinations (ages 5-11), we invite you to visit the [facility] webpage. [email or web address] [email or web address] To learn more about the COVID-19 vaccine, we invite you to visit the CDC website for a list of frequently asked questions. https://www.cdc.gov/coronavirus/2 019-ncov/vaccines/faq.html [facility] Patient Portal Access Instructions: Stay connected with your healthcare team and access your personal medical information anytime with the [facility] Patient Portal. If you would like a full copy of your medical records please contact the [facility] Medical Records Department Tuesday through Tuesday between 8a.m. and 4:30p.m. Please follow the directions below to access the portal: 1.Access the email account you provided upon registration to the hospital.2.Look for an invitation email from [facility].3.Open the email and access the invitation link: Accept Invitation to [facility].Fill in the required salazar to create your account. Sign into [email or web address] with your username and password that you created in the above steps to stay up to date. You can then view a summary of results, a summary of your visits, and the ability to download your summaries to your computer or send the information securely to a physician. Remember that your healthcare information is confidential, so carefully consider who you will allow to register on the [facility] Patient Portal for access to your information. You can also access the [facility] Patient Portal on the [employer]is. Simply click on "Health Records" under "Health Data" and then click on the [employer] logo. HOW TO SAFELY DISPOSE OF PRESCRIPTION MEDICATIONS Please use one of the following methods to safely dispose of your unused medications. 1.Use a drug disposal kit: the drug disposal pouch allows you to safely discard your old and unused drugs. Ask your nurse to give you one when you are discharged.2.Visit a local take-back location: Many local pharmacies and police departments have programs that collect old and unwanted prescription drugs. Call your local pharmacy or go to [email or web address] to find one close to you.3.Make use of household items: Use cat litter or old coffee grounds to dispose medications if other options are not available. Mix your drugs with these household products, seal them in an airtight container and throw it into the garbage. Call [facility]: [phone] to be sure your drugs can be disposed of in this way. Some medicines may require a different approach.4.Never flush your medications down the toilet. IF YOU HAVE BEEN PRESCRIBED AN OPIOIDS FOR PAIN If you have been prescribed an opioid (such as hydrocodone, oxycodone or morphine), it is critical to understand the possible side effects and risks of opioid pain medications. Even when taken as directed, opioids can have several side effects including: Tolerance, meaning you might need to take more of a medication for the same pain relief. Nausea, vomiting and/or constipation. Sleepiness, dizziness, dry mouth, confusion, depression or itching. Physical dependence, meaning you have withdrawal symptoms when a medication is stopped ? this can develop within a few days. KNOW YOUR RESPONSIBILITIES It is important to know exactly how much and how often to take the opioid pain medications you are prescribed. Never take opioids in higher amounts or more often than prescribed. Do not combine opioids with alcohol or other drugs that cause drowsiness, such as benzodiazepines, also known as benzos, including diazepam and alprazolam, muscle relaxants or sleep aids. Never sell or share prescription opioids. This is illegal. Store opioids in a secure place and out of reach of others (including children, family, friends and visitors). The last page(s) of this document has been signed and retained as a CHART COPY Signatures Patient Education Materials Urinary Tract Infections in Women Medication Leaflets cephalexin My discharge plan and instructions have been reviewed and explained to me and IKATHYA ANITA L understand my current condition and have read and understand these discharge instructions. I have received a written copy of the plan/instructions. If I have questions, I am aware that I should contact my doctor. 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 She started on Augmentin yesterday for UTI. Pt also endorses some "extra wetness". R: Advised pt that some women are more prone to yeast infections while on antibiotics. Advised to to try OTC miconazole. Advised to monitor symptoms and call back if not better in a few days. Also advised pt to wear clean, cotton panties and use mild, unscented soap. Patient understands all care advice. No further needs at this time. Reason for Disposition Symptoms of a yeast infection (i.e., itchy, white discharge, not bad smelling) and feels like prior vaginal yeast infections Protocols used: Vaginal Wqpiaudo-HAPGG-IE [facility] 11-11-2023 Miscellaneous Notes S: Patient spoke with [facility] nurse regarding: Vaginal burning - amoxicillin-clavulanate (Augmentin) 875-125 MG tablet B: Onset of symptoms/concern: today A: Pt states she started having vaginal burning today. She started on Augmentin yesterday for UTI. Pt also endorses some "extra wetness". R: Advised pt that some women are more prone to yeast infections while on antibiotics. Advised to to try OTC miconazole. Advised to monitor symptoms and call back if not better in a few days. Also advised pt to wear clean, cotton panties and use mild, unscented soap. Patient understands all care advice. No further needs at this time. Reason for Disposition Symptoms of a yeast infection (i.e., itchy, white discharge, not bad smelling) and feels like prior vaginal yeast infections Protocols used: Vaginal Duyqocfq-RNBSC-LW documented in this encounter [facility] 11-10-2023 History of Present illness Narrative Images from the original note were not included. Sarath Ramos MD 11/10/2023 at 2:15 PM Office follow up PATIENT NAME: Surinder Rasheed DATE OF : 1950 TODAY'S DATE: 11/10/2023 CHIEF COMPLAINT: Chief Complaint Patient presents with Dysuria History of bladder infections Urinary Frequency Subjective: Ms. Rasheed is a 73 y.o. female who presents to the office for follow up of bilateral nephrolithiasis She has been treated with bilateral PCNL She has been very confused at times over the last month She has dysuria as well Occasional right flank pain Review of Systems Constitutional: Negative for activity change, chills, fatigue and fever. Gastrointestinal: Negative for abdominal distention and abdominal pain. Genitourinary: Positive for dysuria and flank pain. Negative for frequency. Past Medical History: Past Medical History: Diagnosis Date Arthritis GERD (gastroesophageal reflux disease) Hyperlipidemia Hypertension Kidney stone Mitral valve disorder prolapse Thyroid disease hypothyroidism Past Surgical History: Past Surgical History: Procedure Laterality Date BLADDER SURGERY prolapse COLONOSCOPY EYE SURGERY Left cataract HYSTERECTOMY OTHER SURGICAL HISTORY Right 03/12/2022 Percutaneous nephrolithotomy with JJ stent placemet OTHER SURGICAL HISTORY Right 03/12/2022 Neph Tube Placement PERCUTANEOUS NEPHROLITHOTRIPSY Left 09/24/2022 NEPHROURETREAL CATHETER PLACEMENT NEW ACCESS (HISTORICAL) Left 09/24/2022 Allergies: Cyclobenzaprine, Prednisone, Promethazine, Statins, Hydrocodone, Lisinopril, and Sulfa antibiotics Social History: Social History Socioeconomic History Marital status: Spouse name: Not on file Number of children: Not on file Years of education: Not on file Highest education level: Not on file Occupational History Not on file Tobacco Use Smoking status: Never Smokeless tobacco: Never Substance and Sexual Activity Alcohol use: Never Drug use: Never Sexual activity: Not on file Other Topics Concern Not on file Social History Narrative Not on file Social Determinants of Health Financial Resource Strain: Not on file Food Insecurity: Not on file Transportation Needs: Not on file Physical Activity: Not on file Stress: Not on file Social Connections: Not on file Intimate Partner Violence: Not on file Housing Stability: Not on file Family History: Medications Prior to Admission medications Medication Sig Start Date End Date Taking? Authorizing Provider acetaminophen (Tylenol) 325 MG tablet Take by mouth. 11/22/17 Historical Provider, amLODIPine (Norvasc) 2.5 MG tablet Take 2.5 mg by mouth in the morning. 02/22/22 Historical Provider, atenolol (Tenormin) 25 MG tablet Indications: evening 06/10/15 Historical Provider, levothyroxine (Synthroid, Levoxyl) 112 MCG tablet TAKE 1 TABLET BY MOUTH EVERY DAY FOR 90 DAYS 11/25/21 Historical Provider, LORazepam (Ativan) 0.5 MG tablet Take 0.5 mg by mouth in the morning and 0.5 mg before bedtime. 06/10/15 Historical Provider, losartan (Cozaar) 25 MG tablet Take 50 mg by mouth. 06/03/21 Historical Provider, meloxicam (Mobic) 15 MG tablet Take 1 tablet by mouth in the morning. 07/19/22 Historical Provider, ondansetron ODT (Zofran-ODT) 4 MG disintegrating tablet Take 4 mg by mouth. 03/21/21 Historical Provider, pantoprazole (ProtoNix) 40 MG EC tablet Take 40 mg by mouth in the morning. 11/19/21 Historical Provider, potassium chloride CR (Klor-Con) 10 MEQ ER tablet Take 1 tablet by mouth in the morning. 03/09/22 Historical Provider, potassium chloride CR (Klor-Con) 10 MEQ ER tablet Take 10 mEq by mouth in the morning. 03/09/22 Historical Provider, potassium citrate-citric acid (Dqwrj-E-Ikkologq) 4748-1636 MG packet Take 1 packet by mouth daily. Mix with 6 oz of cold water. Take after meals. 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 03/14/22 Historical Provider, terazosin (Hytrin) 2 MG capsule Take 2 mg by mouth at bedtime. Historical Provider, Vitals: There were no vitals taken for this visit. Physical Exam General: alert, appears stated age, and cooperative Abdomen: soft and nondistended Back: straight, CVA tenderness absent : defer exam Labs: WBC Lab Results Component Value Date WBC 7.4 09/25/2022 BMP Lab Results Component Value Date NA 134 (L) 09/25/2022 K 3.9 09/25/2022 CL 104 09/25/2022 CO2 23 09/25/2022 BUN 21 (H) 09/25/2022 CREATININE 0.91 09/25/2022 CREATININE 0.68 09/17/2022 GLUCOSE 125 (H) 09/25/2022 CALCIUM 9.2 09/25/2022 PSA No results found for: "PSA" UA Lab Results Component Value Date APPEARANCE Turbid (A) 09/17/2022 COLORU Light-Yellow 09/17/2022 LABSPEC 1.006 09/17/2022 LABPH 6.0 09/17/2022 GLUCOSEU Normal 09/17/2022 UROBILINOGEN 0.2 11/10/2023 UROBILINOGEN Normal 09/17/2022 BILIRUBINUR Negative 11/10/2023 OCBU 1.0 (A) 09/17/2022 Review: Ureteroscopy I discussed the procedure of ureteroscopy. I discussed the risks, benefits and alternatives to this. I discussed the possible complications which could include bleeding, infection and stricture disease. I discussed the possible need for stenting. I explained the need for stent and duration will be determined at that time of surgery. A string may be left. I explained laser lithotripsy as well. I explained this and compared and contrasted it to other procedures such as ESWL and PCNL. She understands this and wishes to proceed forward. Impression/Plan Diagnoses and all orders for this visit: Right kidney stone Burning with urination - Urine culture - AMB POC URINALYSIS DIP STICK AUTO W/O MICRO (CRN) Other orders - amoxicillin-clavulanate (Augmentin) 875-125 MG tablet; Take 1 tablet by mouth 2 times daily for [address] from [place] showing multiple right sided kidney stones and hydronephrosis Concern for right UPJ obstruction Will send urine culture Start augmentin Will plan on staged ureteroscopy and laser lithotripsy, May need pyeloplasty No follow-ups on file. Sarath Ramos MD 11/10/23 2:15 PM documented in this encounter [facility] 11-09-2023 Note . MICRO - Microbiology PROCEDURE: Urine Culture [*1] SOURCE: Urine, Clean Catch BODY SITE: COLLECTED DATE/TIME: 11/07/2023 00:56 EST RECEIVED DATE/TIME: 11/07/2023 14:14 EST START DATE/TIME: 11/07/2023 14:14 EST FREE TEXT SOURCE: FINAL REPORTS Final Report [] Verified Date/Time/Personnel: 11/09/2023 08:03 EST No growth at 48 hours. PRELIMINARY REPORTS Preliminary Report [] Verified Date/Time/Personnel: 11/08/2023 09:55 EST No growth to date Performing Locations *1: This test was performed at: [address], [facility] , [facility] ([place]) 11-08-2023 Note ORIGINAL EXAMINATION: CT OF THE ABDOMEN AND PELVIS WITHOUT AGYSYNZF16/12/2023 1:46 pm TECHNIQUE: CT of the abdomen and pelvis was performed without the administration of intravenous contrast. Multiplanar reformatted images are provided for review. Automated exposure control, iterative reconstruction, and/or weight based adjustment of the mA/kV was utilized to reduce the radiation dose to as low as reasonably achievable. COMPARISON: 11/28/2014. HISTORY: ORDERING SYSTEM PROVIDED HISTORY: Reason for Exam: concern for nephrolithiasis FINDINGS: There is no evidence of pulmonary nodule or pleural effusion at the level of the lung bases. The liver, spleen, pancreas, gallbladder, adrenals have a grossly unremarkable appearance, without intravenous contrast. Atherosclerotic changes are noted in the abdominal aorta, without evidence of aneurysm. Lack of oral contrast limits evaluation of the large and small bowel. There is sigmoid colonic diverticulosis, without gross evidence of diverticulitis. There is no evidence of large or small bowel obstruction or inflammation. There is no evidence of a dilated vermiform appendix. No free intraperitoneal fluid or air is identified. Uterus is not identified and is likely surgically absent. No adnexal lesion is seen. There is a 1.2 by 1.1 cm lower pole right renal calculus. 9 x 7 x 6 mm calculus is present in the posterior midpole of the right kidney. 9 by 4 by 8 mm calculus is identified within the dependent portion of the dilated right intrarenal collecting system. There is marked right hydronephrosis with abrupt caliber change at the ureteropelvic junction. No calculus or lesion is identified at the UPJ. There is no evidence of right ureteral calcification or hydronephrosis. There is a 4.7 x 3.7 cm cyst in the medial upper pole of the right kidney with multiple smaller left renal cystic lesions identified. 2 mm calcification is noted in the posterior midpole of the left kidney but there is no evidence of left-sided hydronephrosis, hydroureter or urolithiasis. No urinary bladder calculus is identified. There is no evidence of anterior abdominal wall hernia. Bone windows reveal no evidence of acute fracture or osteolytic/osteoblastic lesion grade IMPRESSION: Multiple right renal calculi, including a 9 mm intrarenal collecting system calculus. Marked right hydronephrosis with abrupt caliber change at the ureteropelvic junction. Differential diagnostic considerations include chronic UPJ obstruction secondary to stenosis or intermittent obstruction due to the intrarenal collecting system calculus. Bilateral renal cystic lesions. Interpreted by: Victor M Duarte Preliminary Report By: Victor M Duarte Electronically signed By Victor M Duarte Dictated Date: 11/08/2023 2:00:42 PM Prelim Date: 11/08/2023 2:09:59 PM Sign Date: 11/08/2023 2:09:59 PM Ordering Provider: STACEY NEWBERRY [facility] 11-07-2023 Hospital Discharge instructions Patient Education 11/07/2023 00:57:59 Hematuria Blood in the Urine Blood in the urine (hematuria) has many possible causes. If it occurs after an injury (such as a car accident or fall), it is most often a sign of bruising to the kidney or bladder. Common causes of blood in the urine include urinary tract infections, kidney stones, inflammation, tumors, or certain other diseases of the kidney or bladder. Menstruation can cause blood to appear in the urine sample, although it is not coming from the urinary tract. If only a trace amount of blood is present, it will show up on the urine test, even though the urine may be yellow and not pink or red. This may occur with any of the above conditions, as well as heavy exercise or high fever. In this case, your doctor may want to repeat the urine test on another day. This will show if the blood is still present. If it is, then other tests can be done to find out the cause. Home care Follow these home care guidelines: If your urine does not appear bloody (pink, brown or red) then you do not need to restrict your activity in any way. If you can see blood in your urine, rest and avoid heavy exertion until your next exam. Do not use aspirin, blood thinners, or anti-platelet or anti-inflammatory medicines. These include ibuprofen and naproxen. These thin the blood and may increase bleeding. Follow-up care Follow up with your healthcare provider, or as advised. If you were injured and had blood in your urine, you should have a repeat urine test in 1 to 2 days. Contact your doctor for this test. A radiologist will review any X-rays that were taken. You will be told of any new findings that may affect your care. When to seek medical advice Call your healthcare provider right away if any of these occur: Bright red blood or blood clots in the urine (if you did not have this before) Weakness, dizziness or fainting New groin, abdominal, or back pain Fever of 100.4 F (38 C) or higher, or as directed by your healthcare provider Repeated vomiting Bleeding from the nose or gums or easy bruising [id number] [employer]. [address] [place] [address]. All rights reserved. This information is not intended as a substitute for professional medical care. Always follow your healthcare professional's instructions. Follow Up Care 11/07/2023 00:23:25 With:STACEY NEWBERRY DO Address: [address] [facility] [place] [address]- [phone] When:2-4 days [facility] 11-07-2023 Note Discharge Instructions Thank you for allowing [facility] to assist you with your healthcare needs. The following is important discharge information regarding your hospital visit. Diagnosis from Today's Visit Hematuria What to Do Next Instructions from Your Care Team No qualifying data available. Post Acute Orders No qualifying data available. You Need to Schedule the Following Appointments Follow Up with STACEY NEWBERRY DO When Within 2-4 days Where: [address] [facility] [place], [place] [id number]- [phone] Allergies Statins (myalgias) Flexeril (Irregular heart beat) lisinopril (Cough) predniSONE promethazine (Irregular heart beat) Medications Please ask your primary doctor or pharmacist before taking any other medication not listed, including over the counter drugs, herbal medications, vitamins and or supplements as they may interact with your home medications. Please take this list to your next doctor s visit. Bring all medications you take, including over the counter medications, herbals and other supplements with you to your doctor s visit. Patients and families are reminded to discard old lists and to update any records with all medication providers or retail pharmacies. Education Materials Blood in the Urine Blood in the urine (hematuria) has many possible causes. If it occurs after an injury (such as a car accident or fall), it is most often a sign of bruising to the kidney or bladder. Common causes of blood in the urine include urinary tract infections, kidney stones, inflammation, tumors, or certain other diseases of the kidney or bladder. Menstruation can cause blood to appear in the urine sample, although it is not coming from the urinary tract. If only a trace amount of blood is present, it will show up on the urine test, even though the urine may be yellow and not pink or red. This may occur with any of the above conditions, as well as heavy exercise or high fever. In this case, your doctor may want to repeat the urine test on another day. This will show if the blood is still present. If it is, then other tests can be done to find out the cause. Home care Follow these home care guidelines: If your urine does not appear bloody (pink, brown or red) then you do not need to restrict your activity in any way. If you can see blood in your urine, rest and avoid heavy exertion until your next exam. Do not use aspirin, blood thinners, or anti-platelet or anti-inflammatory medicines. These include ibuprofen and naproxen. These thin the blood and may increase bleeding. Follow-up care Follow up with your healthcare provider, or as advised. If you were injured and had blood in your urine, you should have a repeat urine test in 1 to 2 days. Contact your doctor for this test. A radiologist will review any X-rays that were taken. You will be told of any new findings that may affect your care. When to seek medical advice Call your healthcare provider right away if any of these occur: Bright red blood or blood clots in the urine (if you did not have this before) Weakness, dizziness or fainting New groin, abdominal, or back pain Fever of 100.4 F (38 C) or higher, or as directed by your healthcare provider Repeated vomiting Bleeding from the nose or gums or easy bruising [phone] [employer]. [address] [place] [address]854. All rights reserved. This information is not intended as a substitute for professional medical care. Always follow your healthcare professional's instructions. Additional Information VACCINATE! IT SAVES LIVES! Members of the community who have not yet received the COVID-19 vaccine and would like to receive it can visit one of [facility] vaccine clinics. There are many vaccine clinic locations within the [facility]. For locations and available times, please visit [email or web address] It is important to note that some COVID mobile vaccine clinics are held outdoors and may be canceled in rainy or stormy conditions. To learn more about pediatric vaccinations (ages 5-11), we invite you to visit the [facility] webpage. [email or web address] [email or web address] To learn more about the COVID-19 vaccine, we invite you to visit the CDC website for a list of frequently asked questions. https://www.cdc.gov/coronavirus/2 019-ncov/vaccines/faq.html [facility] Patient Portal Access Instructions: Stay connected with your healthcare team and access your personal medical information anytime with the [facility] Patient Portal. If you would like a full copy of your medical records please contact the [facility] Medical Records Department Tuesday through Tuesday between 8a.m. and 4:30p.m. Please follow the directions below to access the portal: 1.Access the email account you provided upon registration to the [facility].2.Look for an invitation email from [facility].3.Open the email and access the invitation link: Accept Invitation to [facility]4.Fill in the required salazar to create your account. Sign into [email or web address] with your username and password that you created in the above steps to stay up to date. You can then view a summary of results, a summary of your visits, and the ability to download your summaries to your computer or send the information securely to a physician. Remember that your healthcare information is confidential, so carefully consider who you will allow to register on the [facility] Patient Portal for access to your information. You can also access the [facility] Patient Portal on the [employer]. Simply click on "Health Records" under "Health Data" and then click on the [employer] logo. HOW TO SAFELY DISPOSE OF PRESCRIPTION MEDICATIONS Please use one of the following methods to safely dispose of your unused medications. 1.Use a drug disposal kit: the drug disposal pouch allows you to safely discard your old and unused drugs. Ask your nurse to give you one when you are discharged.2.Visit a local take-back location: Many local pharmacies and police departments have programs that collect old and unwanted prescription drugs. Call your local pharmacy or go to http://bit.Adhesive.co/3F0Ro1f to find one close to you.3.Make use of household items: Use cat litter or old coffee grounds to dispose medications if other options are not available. Mix your drugs with these household products, seal them in an airtight container and throw it into the garbage. Call [facility]: [phone] to be sure your drugs can be disposed of in this way. Some medicines may require a different approach.4.Never flush your medications down the toilet. IF YOU HAVE BEEN PRESCRIBED AN OPIOIDS FOR PAIN If you have been prescribed an opioid (such as hydrocodone, oxycodone or morphine), it is critical to understand the possible side effects and risks of opioid pain medications. Even when taken as directed, opioids can have several side effects including: Tolerance, meaning you might need to take more of a medication for the same pain relief. Nausea, vomiting and/or constipation. Sleepiness, dizziness, dry mouth, confusion, depression or itching. Physical dependence, meaning you have withdrawal symptoms when a medication is stopped ? this can develop within a few days. KNOW YOUR RESPONSIBILITIES It is important to know exactly how much and how often to take the opioid pain medications you are prescribed. Never take opioids in higher amounts or more often than prescribed. Do not combine opioids with alcohol or other drugs that cause drowsiness, such as benzodiazepines, also known as benzos, including diazepam and alprazolam, muscle relaxants or sleep aids. Never sell or share prescription opioids. This is illegal. Store opioids in a secure place and out of reach of others (including children, family, friends and visitors). The last page(s) of this document has been signed and retained as a CHART COPY Signatures Patient Education Materials Hematuria Medication Leaflets My discharge plan and instructions have been reviewed and explained to me and I,SURINDER RASHEED understand my current condition and have read and understand these discharge instructions. I have received a written copy of the plan/instructions. If I have questions, I am aware that I should contact my doctor. 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 States she has burning with urination "lots of burning" and "a little" bit of blood. Sched 11/10/23 Dr Ramos [facility] office [facility] 11-03-2023 Miscellaneous Notes Pt called in requesting an appt with Dr Ramos only. States she has burning with urination "lots of burning" and "a little" bit of blood. Sched 11/10/23 Dr Ramos [facility] office documented in this encounter [facility] 10-27-2023 Note . MICRO - Microbiology PROCEDURE: Urine Culture [*1] SOURCE: Urine, Clean Catch BODY SITE: COLLECTED DATE/TIME: 10/24/2023 13:10 EST RECEIVED DATE/TIME: 10/24/2023 19:19 EST START DATE/TIME: 10/24/2023 19:20 EST FREE TEXT SOURCE: FINAL REPORTS Final Report [] Verified Date/Time/Personnel: 10/27/2023 08:00 EST >100,000 cfu/ml Klebsiella pneumoniae >100,000 cfu/ml Klebsiella pneumoniae #2 PRELIMINARY REPORTS Preliminary Report [] Verified Date/Time/Personnel: 10/26/2023 11:17 EST >100,000 cfu/ml Klebsiella pneumoniae >100,000 cfu/ml Klebsiella pneumoniae #2 MEGGAN to follow Preliminary Report [] Verified Date/Time/Personnel: 10/25/2023 08:14 EST Culture results pending. SUSCEPTIBILITY RESULTS Klebsiella pneumoniae Antibiotic MEGGAN Dilut MEGGAN Inter Ampicillin 16 Resistant Ampicillin/ <=4/2 Susceptible Sulbactam Aztreonam <=4 Susceptible Cefazolin <=2 Susceptible Ciprofloxacin <=0.25 Susceptible Ertapenem <=0.5 Susceptible Gentamicin <=2 Susceptible ID Panel Not Not Applicable Applicable Imipenem <=1 Susceptible Levofloxacin <=0.5 Susceptible Meropenem <=1 Susceptible Minocycline <=4 Susceptible Nitrofurantoin <=32 Susceptible Piperacillin/ <=8 Susceptible Tazobactam Trimethoprim/ <=0.5/9.5 Susceptible Sulfa Klebsiella pneumoniae #2 Antibiotic MEGGAN Dilut MEGGAN Inter Ampicillin 16 Resistant Ampicillin/ <=4/2 Susceptible Sulbactam Aztreonam <=4 Susceptible Cefazolin <=2 Susceptible Ciprofloxacin <=0.25 Susceptible Ertapenem <=0.5 Susceptible Gentamicin <=2 Susceptible ID Panel Not Not Applicable Applicable Imipenem <=1 Susceptible Levofloxacin <=0.5 Susceptible Meropenem <=1 Susceptible Minocycline <=4 Susceptible Nitrofurantoin <=32 Susceptible MICRO - Microbiology SUSCEPTIBILITY RESULTS Klebsiella pneumoniae #2 Antibiotic MEGGAN Dilut MEGGAN Inter Piperacillin/ <=8 Susceptible Tazobactam Trimethoprim/ <=0.5/9.5 Susceptible Sulfa Performing Locations *1: This test was performed at: [facility], [address] [place] [address], [id number] , [facility] ([place]) 10-25-2023 Telephone encounter Note Done Meredith Van [facility] 10-25-2023 Miscellaneous Notes Done Meredith Van Name of caller: Surinder Jaindler Contact phone number: [phone] Relationship to Patient: patient Provider: Eugenio Barrett CNP Practice: Urology [facility] location Chief Complaint/Reason for Call: 10/25/23 Pt called at 07:17 AM pt not feeling well pt cx appt would like a call back to r/s appt Best time of day caller can be reached: AM Patient advised that office/PCP has 24-48 business hours to return their call: Yes documented in this encounter [facility] 10-25-2023 Telephone encounter Note Name of caller: Surinder Kathya Contact phone number: [phone] Relationship to Patient: patient Provider: Eugenio Barrett CNP Practice: Urology [facility] location Chief Complaint/Reason for Call: 10/25/23 Pt called at 07:17 AM pt not feeling well pt cx appt would like a call back to r/s appt Best time of day caller can be reached: AM Patient advised that office/PCP has 24-48 business hours to return their call: Yes [facility] 12-30-2022 Hospital Discharge instructions Additional Instructions Discharge to [facility] 12/30/2022, outpatient physical therapy at [facility]. [facility] Work Phone: 12-29-2022 Discharge summary Note Date/Time December 23, 2022 1:02pm [facility] Medical Records Department [address] [place] [address] Discharge Summary 12/23/22 1300 MR#: [id number] Acct: [id number] Name: SURINDER RASHEED Rep #:[id number] : 1950 72 From: Shant Guevara MD PCP: Dr. Stacey Newberry DO Status:ADM IN Location: [place] [address] Providers Date of Admission: 12/22/22 Primary Care Physician: Dr. Stacey Newberry DO Reason For Visit: R TOTAL KNEE Diagnosis Discharge Diagnosis (1) Debility: Status: Acute Code(s): R53.81 - Other malaise (2) Status post total right knee replacement: Status: Acute Code(s): Z96.651 - Presence of right artificial knee joint (3) Anxiety: Status: Acute Code(s): F41.9 - Anxiety disorder, unspecified (4) Hypertension: Status: Chronic Code(s): I10 - Essential (primary) hypertension (5) Hypothyroidism: Status: Acute Code(s): E03.9 - Hypothyroidism, unspecified Plan 72 year old female with below past medical history hospitalized for robot assisted right total knee arthroplasty 12/20/[address] Nicholson, admitted to TCU with debility, here for rehabilitation, strengthening, prior to discharge home alone. * Debility - PT/OT. * Pain - Tylenol 1000mg q8, Tramadol 50mg q6h prn pain (4-5), Oxycodone 5mg q4h prn pain (6-10). * Bowel - Miralax 17gm daily, senna/colace 2 tablets bid, MOM 30ml po x 1 prn. * Adult immunization - Administer pneumonia vaccine, covid19 vaccine, flu vaccine as appropriate. * DVT prophylaxis - Eliquis 2.5mg bid thru 01/01/2023. * Hypertension - Atenolol 25mg daily, Losartan 50mg daily. * GI prophylaxis - Lactobacillus 1 tablet bid. * Hypothyroidism - Levothyroxine 112mcg daily. * Anxiety - Lorazepam 0.5mg bid prn, stable chronic roasterman use, GDR not recommended. Medications at Discharge Home Medications lorazepam 0.5 mg tablet 0.5 mg PO BID anxiety 06/10/15 levothyroxine 112 mcg tablet 112 mcg PO DAILY thyroid 12/30/21 losartan 25 mg tablet 50 mg PO DAILY BP 12/30/21 atenolol 25 mg tablet 25 mg PO DAILY BP 06/10/22 amlodipine 5 mg tablet 5 mg PO DAILY BP 12/22/22 acetaminophen 500 mg tablet 1,000 mg PO Q8 #0 tabs 12/23/22 acidophilus 25 million cell-pectin, citrus 100 mg tablet 1 tab PO BID #0 tabs 12/23/22 apixaban 5 mg tablet (Eliquis) 2.5 mg PO BID 9 days #9 tabs 12/23/22 potassium chloride 20 mEq tablet,extended release(part/cryst) (Klor-Con M) 20 meq PO DAILYCM 30 days #30 tabs 12/23/22 sennosides 8.6 mg-docusate sodium 50 mg tablet (Stool Softener-Stimulant Laxative) 2 tab PO BID 30 days #120 tabs 12/23/22 Hospital Course Operations total knee replacement (Right.) Procedures None Summary of Care Provided Minutes Spent on Discharge: 35 Hospital Course: 72 year old female with below past medical history hospitalized for robot assisted right total knee arthroplasty 12/20/[address] Nicholson, admitted to TCU with debility, here for rehabilitation, strengthening, prior to discharge home alone. Discharge to [facility] 12/23/2022, [facility] PT/OT/ST/SN. Physical Exam Const alert General Appearance: cooperative HEENT normocephalic Eyes PERRL and EOMs intact bilaterally Neck supple, no JVD and no carotid bruits Resp normal respiratory effort, normal air movement and clear to auscultation bilaterally Cardio regular rate and regular rhythm GI normal to inspection, nondistended, normoactive bowel sounds, non-tender and non-distended Extremity normal capillary refill General Extremity: Negative for edema Skin no rashes or lesions noted General Skin Exam: no breakdown Psych affect normal Appearance: appropriate Weight / BMI Weight Weight: 62.959 kg Body Mass Index (BMI) 23.8 ABG / Lab / Microbiology Data Result Diagrams: 12/23/22 05:19 12/23/22 05:19 Laboratory: Laboratory Results - last 24 hr 12/23/22 05:19: WBC 6.3, RBC 2.99 L, Hgb 9.8 L, Hct 29.2 L, MCV 97.7, MCH 32.8 H, MCHC 33.6, RDW Std Deviation 45.5 H, RDW Coeff of Wilfred 12.8, Plt Count 213, MPV10.0, Immature Gran % (Auto) 0.300, Neut % (Auto) 52.8, Lymph % (Auto) 34.8, [place] % (Auto) 10.2 H, Eos % (Auto) 1.3, Baso % (Auto) 0.6, Absolute Neuts (auto)3.3, Absolute Lymphs (auto) 2.18, Nucleated RBC % 0 12/23/22 05:19: Sodium 138, Potassium 2.8 L, Chloride 104, Carbon Dioxide 24.0, Anion Gap 10, BUN 19 H, Creatinine 0.64, Estim Creat Clear Calc 42.62, Est GFR (MDRD) Af Amer 117, Est GFR (MDRD) Non-Af 97, BUN/Creatinine Ratio 29.8 H, Glucose 94, Calcium 8.6 Microbiology: Microbiology 12/22/22 20:10 Nasal Secretion SARS-CoV-2 Antigen (Rapid) - Final D/C Instructions Discharge Diet: No restrictions Discharge Activity: Return to Normal Activity, May Shower and Use Walker Weight Bearing Status: Weight bearing as tolerated Call your doctor if you observe: Fever of 101 or Higher, Inability to urinate, Inability to have a bowel movement, Shortness of breath, Dizziness, Fainting spells, Swelling in the ankles, Chest pain and Uncontrolled pain Additional Instructions: Discharge to [facility] 12/23/2022, [facility] PT/OT/ST/SN. Meaningful Use Info Meaningful Use Diagnoses (Choose all that apply): None applicable Discharge Plan Admission Admit Date/Time: 12/22/22 16:12 Primary Reason for Your Visit: Debility. Attending Provider: Shant Guevara Chi Primary Care Provider: Stacey Newberry Instructions Additional Instructions / Restrictions: Discharge to [facility] 12/23/2022, [facility] PT/OT/ST/SN. Discharge Orders/Prescriptions Prescriptions: New Eliquis 5 mg Tablet 2.5 mg PO BID 9 Days Qty: 9 0RF sennosides-docusate sodium [Stool Softener-Stimulant Laxat] 8.6-50 mg Tablet 2 tab PO BID 30 Days Qty: 120 0RF acetaminophen 500 mg Tablet 1,000 mg PO Q8 Qty: 0 0RF potassium chloride [Klor-Con M20] 20 mEq Tablet,Er Particles/Crystals 20 meq PO DAILYCM 30 Days Qty: 30 0RF acidophilus-pectin, citrus 25 million cell -100 mg Tablet 1 tab PO BID Qty: 0 0RF Continued levothyroxine 112 mcg tablet 112 mcg PO DAILY losartan 25 mg tablet 50 mg PO DAILY atenolol 25 mg tablet 25 mg PO DAILY Label Comments: BLOOD PRESSURE lorazepam 0.5 MG tablet 0.5 mg PO BID Label Comments: ANXIETY amlodipine 5 mg tablet 5 mg PO DAILY Discontinued acetaminophen 325 mg tablet 325 mg PO ONCE PRN ondansetron 4 mg tablet,disintegrating 4 mg PO Q6H PRN (Reason: nausea and vomiting) tramadol 50 mg Tablet 50 mg PO Q6H PRN PRN (Reason: Pain) apixaban 2.5 mg Tablet 2.5 mg PO BID Referrals / Follow Up: Stacey Newberry DO [Primary Care Provider] - Disposition Disposition (needs filled in before D/C Order can be placed): Home Health Service 12/23/22 1304 <Electronically signed by Shant Guevara MD> Cosigner Signature (if applicable): CC: Dr. Stacey Newberry DO; Dr. Shant Guevara MD~ Signed ADDENDUM by Dr. Shant Guevara MD on 12/23/22 at 1456 Addendum Hold discharge until further notice. 12/23/22 1456<Electronically signed by Shant Guevara MD> Cosigner Signature (if applicable): cc: Dr. Stacey Newberry DO; Dr. Shant Guevara MD ~* Signed ADDENDUM by Dr. Shant Guevara MD on 12/29/22 at 1940 Addendum Discharge to [facility] 12/30/2022, outpatient therapy. Follow up with Dr. Guevara immediately after discharge 4:00PM for new patient appointment per resident request. 12/29/221939<Electronically signed by Shant Guevara MD> Cosigner Signature (if applicable): cc: Dr. Stacey Newberry DO; Dr. Shant Guevara MD ~* Signed [facility] Work Phone: 1(514) 330-339901-26-2023 History and physical note Author Dr. Guevara [facility] December 23, 2022 5:24pm Note Date/Time December 22, 2022 7 :05pm [facility] Medical Records Department [address] [place] [address] History & Physical Exam 12/22/22 190 MR#: [id number] Acct: [id number] Name: SURINDER RASHEED Rep #:[id number] : 1950 72 From: Shant Guevara MD PCP: Dr. Stacey Newberry DO Status:ADM IN Location: TCU [facility] - General General Date of Admission: 12/22/22 Date of Service: 12/22/22 Chief Complaint: Here for rehabilitation. HPI Narrative SURINDER RASHEED, is a 72 Female who presents with followin12/20/2022 Dr. Nicholson performed robot assisted right total knee arthroplasty [facility]. 12/22/2022 Admit to TCU with debility, here for rehabilitation, strengthening, prior to discharge home alone. Her son Colton is present in room during my visit. [facility] Medical History (Updated 12/22/22 @ 19:[address] Shant Guevara MD) Cardiac dysrhythmia Essential hypertension Family history of coronary artery disease Hypothyroidism Knee osteoarthritis Mixed hyperlipidemia Valvular heart disease Home Medications lorazepam 0.5 mg tablet 0.5 mg PO BID anxiety 06/10/15 [History Last Taken Unknown] acetaminophen 325 mg tablet 325 mg PO ONCE PRN 12/30/21 [History Last Taken Unknown] levothyroxine 112 mcg tablet 112 mcg PO DAILY thyroid 12/30/21 [History Last Taken Unknown] losartan 25 mg tablet 50 mg PO DAILY BP 12/30/21 [History Last Taken Unknown] ondansetron 4 mg disintegrating tablet 4 mg PO Q6H PRN nausea and vomiting 12/30/21 [History Last Taken Unknown] atenolol 25 mg tablet 25 mg PO DAILY BP 06/10/22 [History Last Taken Unknown] amlodipine 5 mg tablet 5 mg PO DAILY BP 12/22/22 [History Last Taken Unknown] apixaban 2.5 mg tablet 2.5 mg PO BID blood thinner 12/22/22 [History Last Taken Unknown] tramadol 50 mg tablet 50 mg PO Q6H PRN PRN Pain 12/22/22 [History Last Taken Unknown] Allergy/AdvReac Type Severity Reaction Status Date / Time prednisone Allergy Rash Verified 12/15/22 11:24 cyclobenzaprine AdvReac Unknown Irregular Verified 12/15/22 11:24 [From Flexeril] Heartbeat lisinopril AdvReac Unknown Cough Verified 12/15/22 11:24 hydrocodone bitartrate AdvReac Other Verified 12/15/22 11:24 [From Vicodin] promethazine AdvReac Other Verified 12/15/22 11:24 Skytajw-WQZ-GjI Reductase AdvReac Pain in Verified 12/15/22 11:24 Inhibitor joints [Zlxwnef-Jhj-Ska Reductase Inhibitor] Family History Father Heart disease Brother Heart disease Surgical History (Updated 12/22/22 @ 19:[address] Shant Guevara MD) H/O lithotripsy History of hysterectomy History of total right knee replacement Social History (Updated 12/22/22 @ 19:[address] Shant Guevara MD) household members: none Smoking Status: Never smoker alcohol intake: never substance use type: does not use caffeine: Yes ROS Constitutional Constitutional: Denies chills, fever(s) or weight gain ENT HEENT: Denies headache(s), nasal congestion or nasal discharge Cardiovascular Cardiovascular: Denies chest pain or palpitations Respiratory/Chest Respiratory/Chest: Denies cough, excessive phlegm production or shortness of breath with exertion Gastrointestinal Gastrointestinal: Denies abdominal pain, nausea or vomiting Genitourinary Genitourinary: Denies dysuria Musculoskeletal Musculoskeletal: Denies joint pain or joint swelling Integumentary Integumentary: Denies rash or wounds Neurologic Neurologic: Denies focal weakness, numbness or tingling Psychiatric Psychiatric: Denies anxiety, auditory hallucinations, depression, homicidal ideation or suicidal ideation Vital Signs Vital Signs Vital Signs: 12/22/22 16:17 12/22/22 16:17 Temperature 97.9 F 97.9 F Temperature Source Oral Temporal Pulse Rate 71 71 Respiratory Rate 18 18 Blood Pressure 112/76 112/76 Blood Pressure Mean 88 88 Blood Pressure Source Monitor Monitor Blood Pressure Position Sitting Sitting Blood Pressure Location Left Arm Left Arm Pulse Ox 96 Oxygen Delivery Method Room Air Room Air Physical Exam Const alert General Appearance: cooperative HEENT normocephalic Eyes PERRL and EOMs intact bilaterally Neck supple, no JVD and no carotid bruits Resp normal respiratory effort, normal air movement and clear to auscultation bilaterally Cardio regular rate and regular rhythm GI normal to inspection, nondistended, normoactive bowel sounds, non-tender and non-distended Extremity normal capillary refill General Extremity: Negative for edema Skin no rashes or lesions noted General Skin Exam: no breakdown Psych affect normal Appearance: appropriate Assessment & Plan Assessment/Plan (1) Debility: (2) Status post total right knee replacement: (3) Anxiety: (4) Hypertension: (5) Hypothyroidism: PLAN: Plan 72 year old female with below past medical history hospitalized for robot assisted right total knee arthroplasty 12/20/[address] Nicholson, admitted to TCU with debility, here for rehabilitation, strengthening, prior to discharge home alone. * Debility - PT/OT. * Pain - Tylenol 1000mg q8, Tramadol 50mg q6h prn pain (4-5), Oxycodone 5mg q4h prn pain (6-10). * Bowel - Miralax 17gm daily, senna/colace 2 tablets bid, MOM 30ml po x 1 prn. * Adult immunization - Administer pneumonia vaccine, covid19 vaccine, flu vaccine as appropriate. * DVT prophylaxis - Eliquis 2.5mg bid thru 01/01/2023. * Hypertension - Atenolol 25mg daily, Losartan 50mg daily. * GI prophylaxis - Lactobacillus 1 tablet bid. * Hypothyroidism - Levothyroxine 112mcg daily. * Anxiety - Lorazepam 0.5mg bid prn, stable chronic roasterman use, GDR not recommended. 12/22/22 1910 <Electronically signed by Shant Guevara MD> Cosigner Signature (if applicable): CC: Dr. Stacey Newberry DO; Dr. Shant Guevara MD~ Signed ADDENDUM by Dr. Shant Guevara MD on 12/23/22 at 1724 Addendum I reviewed GARRISON Galaviz note. 100 pound weight loss is concerning, etiology unknown. Resident most like has mild Alzheimer's Disease, anxiety. I think it is too soon to diagnose and treat these conditions in subacute setting. Again, I would offer to become resident's PCP to work on issues of dementia, anxiety, weight loss, as these are correction problems needing longitudinal assessment rather than what can be managed in SNF. 12/23/221723<Electronically signed by Shant Guevara MD> Cosigner Signature (if applicable): cc: Dr. Stacey Newberry DO; Dr. Shant Guevara MD ~* Signed [facility] Work Phone: 1(926) 555-378701-26-[address] Guevara [facility] December 23, 2022 11:58am Note Date/Time December 23, 2022 1 0:37am [facility] Medical Records Department [address] [place] [id number] Progress Note - Pharmacy 12/23/22 1028 MR#: [id number] Acct: [id number] Name: SURINDER RASHEED Rep #:[id number] : 1950 72 From: Yaneth Lindo PCP: Dr. Stacey Newberry DO Status:ADM IN Location: [place] [address]-1 TCU RX Drug Regimen Review Subjective: 72 YOF admitted to TCU 12/22/22 after total R-knee surgery at an outside facility. Admitted to TCU for rehabilitation and strengthening prior to discharge home where the patient resides alone. Objective: Allergies prednisone Allergy (Verified 12/15/22 11:24) Rash cyclobenzaprine [From Flexeril] Adverse Reaction (Unknown, Verified 12/15/22 11:24) Irregular Heartbeat lisinopril Adverse Reaction (Unknown, Verified 12/15/22 11:24) Cough hydrocodone bitartrate [From Vicodin] Adverse Reaction (Verified 12/15/22 11:24) Other FLUSHED AND HOT promethazine Adverse Reaction (Verified 12/15/22 11:24) Other PALPITATIONS, "FELT LIMP" Tzdvnbl-GGV-JaB Reductase Inhibitor [Dzkxorz-Wpe-Yhx Reductase Inhibitor] Adverse Reaction (Verified 12/15/22 11:24) Pain in joints Current Medications Generic Name Dose Route Start Last Admin Trade Name Freq PRN Reason Stop Dose Admin Acetaminophen 1,000 mg 12/22/22 22:00 12/23/22 05:33 Acetaminophen 500 Mg Tablet PO 1,000 mg Q8 BRENDA Administration Amlodipine Besylate 5 mg 12/23/22 06:00 12/23/22 05:37 Amlodipine 5 Mg Tablet PO 5 mg DAILY BRENDA Administration Apixaban 2.5 mg 12/22/22 18:00 12/23/22 05:34 Apixaban 2.5 Mg Tablet ([facility]) PO 01/01/23 23:59 2.5 mg BID BRENDA Administration Atenolol 25 mg 12/23/22 06:00 12/23/22 05:36 Atenolol 25 Mg Tablet PO 25 mg DAILY BRENDA Administration Lactobacillus Acidophilus 1 tablet 12/22/22 18:00 12/23/22 05:37 Lactobacillus Acidophilus PO 1 tablet BID BRENDA Administration Levothyroxine Sodium 112 mcg 12/23/22 06:00 12/23/22 05:37 Levothyroxine 112 Mcg Tablet PO 112 mcg DAILY BRENDA Administration Lorazepam 0.5 mg 12/22/22 16:49 12/22/22 19:47 Lorazepam 0.5 Mg Tablet PO 0.5 mg BID PRN PRN Administration ANXIETY Losartan Potassium 50 mg 12/23/22 06:00 12/23/22 05:36 Losartan Potassium 50 Mg Tablet PO 50 mg DAILY BRENDA Administration Magnesium Hydroxide 30 ml 12/22/22 19:12 Magnesium Hydroxide 30 Ml Udc PO X1 PRN Constipation Polyethylene Glycol 17 gm 12/23/22 06:00 12/23/22 05:33 Polyethylene Glycol 3350 17 Gm Packet PO 17 gm DAILY BRENDA Administration Potassium Chloride 20 meq 12/23/22 08:00 12/23/22 08:25 Potassium Chloride Oral Tablet 20 Meq PO Not Given DAILY BRENDA Senna/Docusate Sodium 2 tablet 12/22/22 20:00 12/23/22 05:34 Senna/Docusate Sodium 1 Tablet PO 2 tablet BID BRENDA Administration Tramadol HCl 50 mg 12/22/22 19:13 Tramadol 50 Mg Tablet PO Q6H PRN PRN Pain Score 1-10 Tuberculin PPD 0.1 ml 12/30/22 10:00 Tuberculin,Purif.Prot.Deriv. 50 Tu/Ml Vial ID 12/30/22 10:01 X1 ONE Problem List (Last Reviewed 12/22/22 @ 19:[address] Shant Guevara MD) Hypothyroidism (Acute) Hypertension (Chronic) Anxiety (Acute) Status post total right knee replacement (Acute) Debility (Acute) Vital Signs Temp Pulse Resp BP Pulse Ox O2 Del Method 97.9 F 71 16 112/76 96 Room Air 12/22/22 16:17 12/22/22 16:17 12/22/22 18:00 12/22/22 16:17 12/22/22 16:17 12/22/22 18:00 Oxygen Delivery Method Room Air Weight: 62.959 kg Body Mass Index (BMI) 23.8 Sodium 138 mmol/L (136-145) 12/23/22 05:19 Potassium 2.8 mmol/L (3.5-5.1) L 12/23/22 05:19 Chloride 104 mmol/L (98-107) 12/23/22 05:19 Carbon Dioxide 24.0 mmol/L (21.0-32.0) 12/23/22 05:19 Anion Gap 10 (5-15) 12/23/22 05:19 BUN 19 mg/dL (7-18) H 12/23/22 05:19 Creatinine 0.64 mg/dL (0.55-1.02) 12/23/22 05:19 Est GFR (MDRD) Af Amer 117 mL/min (>60) 12/23/22 05:19 Est GFR (MDRD) Non-Af 97 mL/min (>60) 12/23/22 05:19 BUN/Creatinine Ratio 29.8 RATIO (10-20) H 12/23/22 05:19 Glucose 94 mg/dL (74-106) 12/23/22 05:19 Assessment/Plan: 1. Pain: Tylenol 1000mg PO Q8h, Tramadol 50mg PO Q6h PRN Pain 1-10. Please continue to monitor for increased/decreased S/S pain, PRN medication usage, oversedation with PRN medication use, renal function. - To date, the patient has not had any PRN medication doses. It appears that the patient's pain control is adequate at this time. 2. DVT Prophylaxis S/P recent surgery: Eliquis 2.5mg PO BID thru 01/01/23. Please continue to monitor H/H (last done 12/23), S/S bleeding/bruising, S/S blood clot given recent surgery. 3. Hypokalemia (K= 2.8 on 12/23): K-Dur 20mEq PO DailyCM. Please continue to monitor K levels and replace as clinically indicated. Please continue to monitorfor stomach upset, nausea/vomiting. 4. Hypertension: Norvasc 5mg PO Daily, Atenolol 25mg PO Daily, Losartan 50mg PO daily. Please continue to monitor BP (112/76), pulse (71), renal function (stable), electrolytes. 5. Hypothyroidism: Synthroid 112mcg PO daily. Please continue to monitor Thyroidfunction, S/S hypothyroidism. Please consider obtain TSH panel on patient, as none is on file upon EMR review, thank you. 6. General Wellness: Acidophilus 1 tab PO BID. 7. Bowel: Miralax 17g PO daily, Senna/Docusate 2 tab PO BID, MOM 30mL PO x1. Please continue to monitor for increased/decreased constipation and/or diarrhea. Assessment/Plan for indications treated with psychotropic medications: 1. Anxiety: Lorazepam 0.5mg PO BID PRN. Please continue to monitor for oversedation, respiratory depression with use. - Of note; pt was initially on medication BID scheduled, now ordered BID PRN.Will continue to monitor use. Medical chart and medication regimen reviewed. The following medication irregularities or issues were identified: 1. Hypothyroidism: Synthroid 112mcg PO daily. Please consider obtain TSH panel on patient, as none is on file upon EMR review, thank you. Date of Note:: 12/23/22 12/23/22 1108 <Electronically signed by Yaneth Lindo > Yaneth Lindo Cosigner Signature (if applicable): 12/23/22 1158 <Electronically signed by Shant Guevara MD> CC: ~ Signed [facility] Work Phone: [phone]) 892-816910-28-2022 [facility] Department of Radiology Post Procedure Progress Note Pre-Procedure Diagnosis: Staghorn calculus. Procedure Performed: Left nephroureteral access. PCNL to follow. Anesthesia: MAC per Anesthesia. Local lidocaine. Findings: Large left renal calculus. Outcomes: Successful left percutaneous access. 10 Nauruan dual lumen catheter placed into the mid/distal ureter. Estimated Blood Loss: Minimal Immediate Complications: None Final report to follow in Radiology Results. [facility]10-21-2022 History of Present illness Narrative* Nirali Brooks RN - 09/17/2022 10:45 AM EDT Kaushal Escamilla APRN in [facility], shown EKG done in [facility]. . She states no further workup needed. documented in this [facility] Work Phone: 1(730) 541-132810-21-2022 Hospital Discharge instructions* Discharge Instructions* Nirali Brooks RN - 09/17/2022 9:49 AM EDT Shower with an antibacterial soap such as Dial or Safeguard. No makeup, deodorant, lotions, powder, body spray. Prior to surgery all jewelry and body piercings must be removed. Please bring a photo ID and insurance information No smoking, no alcohol 24 hours prior to surgery. NO MOBIC FOR 3 DAYS PRIOR TO SURGERY. Do NOT take the following medications on the morning of surgery: LOSARTAN. TAKE the following medications the morning of your surgery: ATIVAN, IMMODIUM IF NEEDED, ZOFRAN IF NEEDED, AMLODIPINE, SYNTHROID, PEPCID. You may take Tylenol (Acetaminophen) if needed for pain the morning of surgery. No Motrin, Ibuprofen, or Advil 24 hours prior to surgery, or longer if instructed by your surgeon. No Aleve or Naprosyn 3 days prior to surgery, or longer if instructed by your surgeon. DO NOT take aspirin or aspirin containing products for 5 days before surgery, or longer if instructed by your surgeon. You will receive a reminder call the day before surgery with your Same Day Surgery arrival time. If you have specific questions, please call your surgeon. You may use the air compressor operator parking located at the main entrance on [address] and take the H elevator to the first floor for same day surgery. Take a left after exiting the elevator and check in at the desk. You may use the parking in the Main deck. Take the level one bridge to the H building and follow the signs for same day surgery. Check in at the desk. [facility] Work Phone: [phone]) 868-636904-18-2022 NoteHNO ID: [id number] Author: Aleida Mitchell APRN.TOW DRIVER Service: ? Author Type: Nurse Practitioner Type: Progress Notes Filed: 03/15/2022 12:12 PM Note Text: Subjective The history is provided by the patient and a relative. No speech language pathologist travel was used. JACQUI Rasheed is a 72 year old female who presents today for CC of allergies reaction to dressing from kidney stone surgery last week. Patient had kidney stones removed last week at [facility] and had large dressing applied. Daughter went to remove today and throught it was ripping her skin. She has called surgeon's office and was instructed to come here for treatment. BP 98/80 Pulse 85 Temp 36.9 ?C (98.5 ?F) Resp 21 Wt 72.6 kg (160 lb) SpO2 98% Social History Tobacco Use - Smoking status: Never Smoker - Smokeless tobacco: Never Used Substance Use Topics - Alcohol use: Not on file - Drug use: Not on file No past medical history on file. I have confirmed and edited as necessary, the [facility] Review of Systems Constitutional: Negative for chills and fever. Musculoskeletal: Negative for joint pain and myalgias. Skin: Negative for itching and rash. Skin tear under dressing All other systems reviewed and are negative. Objective Physical Exam Vitals and nursing note reviewed. Pulmonary: Effort: Pulmonary effort is normal. Skin: General: Skin is warm and dry. Comments: Dressing removed cleanse area with soap and water, apply dry sterile dressing over incision. Apply mupirocin with non adherent dressing to blistered area. Neurological: Mental Status: She is alert and oriented to person, place, and time. Psychiatric: Mood and Affect: Affect normal. ASSESSMENT/PLAN: 1. Allergic reaction, initial encounter - ICD9: 995.3, ICD10: T78.40XA Appears to be allergic reaction with blistering to adhesive dressing Mupirocin to are as discussed. Daily wound care/management discussed see patient instructions Follow up with surgeon. I spent a total of 35 minutes on the date of the service which included preparing to see the patient, [id number]-ipid patient care, performing a medically appropriate examination, ordering medications, tests, or procedures and communicating results to the patient/family/caregiver. Diagnosis and treatment plan were discussed and questions were answered to the patient's satisfaction. Pt acknowledged understanding of concepts and follow up plan. Specific signs and symptoms that would indicate the need for higher level of care were discussed in detail warranting prompt ER evaluation. Aleida Mitchell [facility]N.[facility] History of Present illness Narrative* Aleida Mitchell APRN.[facility] - 03/15/2022 11:44 AM EDT Images from the original note were not included. Subjective The history is provided by the patient and a relative. No speech language pathologist travel was used. JACQUI Rasheed is a 72 year old female who presents today for CC of allergies reaction to dressing from kidney stone surgery last week. Patient had kidney stones removed last week at [facility] and hadlarge dressing applied. Daughter went to remove today and throught it was ripping her skin. She hascalled surgeon's office and was instructed to come here for treatment. BP 98/80 Pulse 85 Temp 36.9 C (98.5 F) Resp 21 Wt 72.6 kg (160 lb) SpO2 98% Social History Tobacco Use Smoking status: Never Smoker Smokeless tobacco: Never Used Substance Use Topics Alcohol use: Not on file Drug use: Not on file No past medical history on file. I have confirmed and edited as necessary, the [facility] Review of Systems Constitutional: Negative for chills and fever. Musculoskeletal: Negative for joint pain and myalgias. Skin: Negative for itching and rash. Skin tear under dressing All other systems reviewed and are negative. Objective Physical Exam Vitals and nursing note reviewed. Pulmonary: Effort: Pulmonary effort is normal. Skin: General: Skin is warm and dry. Comments: Dressing removed cleanse area with soap and water, apply dry sterile dressing over incision. Apply mupirocin with non adherent dressing to blistered area. Neurological: Mental Status: She is alert and oriented to person, place, and time. Psychiatric: Mood and Affect: Affect normal. ASSESSMENT/PLAN: 1. Allergic reaction, initial encounter - ICD9: 995.3, ICD10: T78.40XA Appears to be allergic reaction with blistering to adhesive dressing Mupirocin to are as discussed. Daily wound care/management discussed see patient instructions Follow up with surgeon. I spent a total of 35 minutes on the date of the service which included preparing to see the patient, dfsn-uf-[id number] patient care, performing a medically appropriate examination, ordering medications, tests, or procedures and communicating results to the patient/family/caregiver. Diagnosis and treatment plan were discussed and questions were answered to the patient's satisfaction. Pt acknowledged understanding of concepts and follow up plan. Specific signs and symptoms that would indicate the need for higher level of care were discussed indetail warranting prompt ER evaluation. Aleida Mitchell APRN.CNP [facility] Instructions* Patient Instructions* Aleida Mitchell APRN.CNP - 03/15/2022 11:43 AM EDT Wound Care - Keep the area clean and dry -Clean with soap and water . Apply mupirocin ointment 2 times a day. -Tylenol or Ibuprofen for discomfort -Observe area for signs of infection: redness, warmth, foul odor, drainage or increase in discomfort. Follow up with surgeon as directed documented in this [facility] [place] Hospital Discharge instructions* Instructions* Leydi Mancini MD - 03/14/2022 Images from the original note were not included. Ureteral Stent Placement: What to Expect at Home Your Recovery A ureteral (say "dkh-IWD-wwy-ul") stent is a thin, hollow tube that is placed in the ureter to helpurine pass from the kidney into the bladder. Ureters arethe tubes that connect the kidneys to the bladder. You may have a small amount of blood in your urine for 1 to 3 days after theprocedure. While the stent is in place, you may have to urinate more often, feel a sudden need to urinate, or feel like you can't completely empty your bladder. You may feel some pain when you urinate or do strenuous activity. You also may notice a small amount of blood in your urine after strenuous activities. These sideeffects usually don't prevent people from doing their normal daily activities. You may have a thin string coming out of your urethra. Your urethra is the tube that carries urine from your bladder to outside your body. This string is attached to the stent. Try not to pull on thestring. It will be used to pullout the stent when you no longer need it. After the procedure, urine may flow better from your kidneys to your bladder. A ureteral stent may be left in place for several days or for as long as several months. Your doctor will take it out when you no longer need it. Or, in somecases, it may be taken out at home. This care sheet gives you a general idea about how long it will take for you to recover. But each person recovers at a different pace. Follow the steps belowto get better as quickly as possible. How can you care for yourself at home? Activity Rest when you feel tired. Getting enough sleep will help you recover. Avoid strenuous activities, such as bicycle riding, jogging, weight lifting, or aerobic exercise, until your doctor says it is okay. Ask your doctor when you can drive again. Most people are able to return to work the day after the procedure. If your work requires intense activity, you may feel pain in your kidney area or get tired easily. If this happens, you may need todo less strenuous activities while the stent is in. Ask your doctor when it is okay for you to have sex. Diet You can eat your normal diet. If your stomach is upset, try bland, low-fat foods like plain rice, broiled chicken, toast, and yogurt. Drink plenty of fluids (unless your doctor tells you not to). Medicines Your doctor will tell you if and when you can restart your medicines. You will also get instructions about taking any new medicines. If you take aspirin or some other blood thinner, ask your doctor if and when to start taking it again. Make sure that you understand exactly what your doctor wants you to do. Be safe with medicines. Take pain medicines exactly as directed. ? If the doctor gave you a prescription medicine for pain, take it as prescribed. ? If you are not taking a prescription pain medicine, ask your doctor if you can take an gbdy-yxq-pprvesl medicine. If you think your pain medicine is making you sick to your stomach: ? Take your medicine after meals (unless your doctor has told you not to). ? Ask your doctor for a different pain medicine. If your doctor prescribed antibiotics, take them as directed. Do not stop taking them just because you feel better. You need to take the full course of antibiotics. Follow-up care is a carson part of your treatment and safety. Be sure to make and go to all appointments, and call your doctor if you are having problems. It's also a good idea to know your test resultsand keep alist of the medicines you take. When should you call for help? Call 911 anytime you think you may need emergency care. For example, call if: You passed out (lost consciousness). You have severe trouble breathing. You have sudden chest pain and shortness of breath, or you cough up blood. You have severe belly pain. Call your doctor now or seek immediate medical care if: Part or all of the stent comes out of your urethra. You have pain that does not get better after you take pain medicine. You have symptoms of a urinary infection. For example: ? You have blood or pus in your urine. ? You have pain in your back just below your rib cage. This is called flank pain. ? You have a fever, chills, or body aches. ? It hurts to urinate. ? You have groin or belly pain. You cannot control when you urinate, or you leak urine. Watch closely for changes in your health, and be sure to contact your doctor ifyou have any problems. Where can you learn more? Go to https://[email or web address].[employer].org and sign in to your [email or web address] account. Enter B869 in the Search Health Information box to learn more about Ureteral Stent Placement: What to Expect at Home. If you do not have an account, please click on the "Sign Up Now" link. Current as of: September 14, 2021 Content Version: 13.2 [employer]. Care instructions adapted under license by [employer]. If you have questions about a medical condition or this instruction, always ask your healthcare professional. [employer] disclaims any warranty or liability for your use of this information. * Attachments The following attachments cannot be sent through Care Everywhere. * Ureteral Stent Placement: Post-op (Spanish) * Kidney Stone (Spanish) [facility] Phone: [phone] 269-938904-17-2022 Note48 Hour Discharge Summary Note Patient ID: Surinder Rasheed [id number] 72 y.o. 1950 Admit date: 03/12/2022 Discharge date: 03/14/2022 Admitting Physician: Sarath Ramos MD Discharge Physician: Sarath Ramos MD Consults: none Admission Diagnoses: Renal calculus, right [N20.0] Procedure: Right PCNL with antegrade ureteral stent placement Treatment: surgery: As above, see [facility] Pertinent Findings and Labs noted during admission: see [facility] Significant Diagnostic Studies: labs: See [facility] Discharge Diagnoses: Renal calculus, right [N20.0] Discharged Condition: stable Homegoing Instructions: Light activity for 2 weeks Recommended Follow-up: Follow up with Dr. Ramos. Office will call for postop appointment Diet: regular diet Discharge Medications: Medication List START taking these medications oxyCODONE-acetaminophen 5-325 MG per tablet Commonly known as: Percocet Take 1 tablet by mouth every 6 hours as needed for Pain for up to 2 days. Intended supply: 3 days. Take lowest dose possible to manage pain tamsulosin 0.4 MG capsule Commonly known as: FLOMAX Take 1 capsule by mouth daily for 14 days CONTINUE taking these medications amLODIPine 2.5 MG tablet Commonly known as: NORVASC atenolol 25 MG tablet Commonly known as: TENORMIN LORazepam 0.5 MG tablet Commonly known as: ATIVAN losartan 25 MG tablet Commonly known as: COZAAR ondansetron 4 MG disintegrating tablet Commonly known as: ZOFRAN-ODT pantoprazole 40 MG tablet Commonly known as: PROTONIX Synthroid 112 MCG tablet Generic drug: levothyroxine STOP taking these medications clonazePAM 0.5 MG tablet Commonly known as: KLONOPIN loratadine 10 MG tablet Commonly known as: CLARITIN terazosin 2 MG capsule Commonly known as: HYTRIN Where to Get Your Medications These medications were sent to [address] [facility] - P [phone] - F [phone] [place] [phone] ? oxyCODONE-acetaminophen 5-325 MG per tablet ? tamsulosin 0.4 MG capsule Disposition: home [facility]04-17-2022 History of Present illness Narrative* Shaun Fierro MD - 03/14/2022 7:35 AM EDT Department of Urology Daily Progress Note Patient Name: Surinder Rasheed Date of : 1950 Admission Date: 03/12/2022 8:18 AM Today's Date: 03/14/2022 Subjective: - Passed void trial yesterday - Having nausea after PO medications this am, no emesis. She reports this is chronic - Tolerating water, "I don't eat much." - Was OOB yesterday - Denies fevers, chills Current Medications: Current Facility-Administered Medications Medication Dose Route Frequency Provider Last Rate Last Admin potassium chloride 10 mEq/100 mL IVPB (Peripheral Line) 10 mEq IntraVENous Q1H Leydi Mancini MD LORazepam (ATIVAN) tablet 0.5 mg 0.5 mg Oral BID Malcom Marcano MD 0.5 mg at 03/13/222001 losartan (COZAAR) tablet 50 mg 50 mg Oral Daily Malcom Marcano MD 50 mg at 03/13/22 0943 atenolol (TENORMIN) tablet 25 mg 25 mg Oral Daily Malcom Marcano MD 25 mg at 03/13/22 1108 amLODIPine (NORVASC) tablet 2.5 mg 2.5 mg Oral Daily Malcom Marcano MD 2.5 mg at 03/13/22942 levothyroxine (SYNTHROID) tablet 112 mcg 112 mcg Oral Daily Malcom Marcano MD 112 mcg at pantoprazole (PROTONIX) tablet 40 mg 40 mg Oral Daily Malcom Marcano MD 40 mg at 03/13/22942 sodium chloride flush 0.9 % injection 5-40 mL 5-40 mL IntraVENous 2 times per day Malcom Marcano MD 10 mL at 03/13/222002 sodium chloride flush 0.9 % injection 5-40 mL 5-40 mL IntraVENous PRN Malcom Marcano MD 0.9 % sodium chloride infusion 25 mL IntraVENous PRN Malcom Marcano MD ondansetron (ZOFRAN-ODT) disintegrating tablet 4 mg 4 mg Oral Q8H PRN Malcom Marcano MD Or ondansetron (ZOFRAN) injection 4 mg 4 mg IntraVENous Q6H PRN Malcom Marcano MD 4 mg at 03/13/22 0858 acetaminophen (TYLENOL) tablet 1,000 mg 1,000 mg Oral Q6H Malcom Marcano MD 1,000 mg at 03/14/22 0541 oxyCODONE (ROXICODONE) immediate release tablet 5 mg 5 mg Oral Q4H PRN Malcom Marcano MD 5 mg at 03/13/22 0613 Or oxyCODONE (ROXICODONE) immediate release tablet 10 mg 10 mg Oral Q4H PRN Malcom Marcano MD 10 mg at 03/12/22 1737 morphine sulfate (PF) injection 2 mg 2 mg IntraVENous Q2H PRN Malcom Marcano MD Or morphine sulfate (PF) injection 4 mg 4 mg IntraVENous Q2H PRN Malcom Marcano MD 4 mg at 03/13/22902 ibuprofen (ADVIL;MOTRIN) tablet 400 mg 400 mg Oral Q6H PRN Malcom Marcano MD 400 mg at 03/13/222001 enoxaparin (LOVENOX) injection 40 mg 40 mg SubCUTAneous Daily Malcom Marcano MD 40 mg at tamsulosin (FLOMAX) capsule 0.4 mg 0.4 mg Oral Daily Malcom Marcano MD 0.4 mg at 03/13/22942 polyethylene glycol (GLYCOLAX) packet 17 g 17 g Oral Daily PRN Malcom Marcano MD Objective: Vitals: 03/13/22 0901 03/13/22 1349 03/13/22 1650 03/14/22 0534 BP: 126/84 (!) 156/83 133/72 (!) 143/77 Pulse: 78 70 77 66 Resp: Temp: 97.3 F (36.3 C) 98.3 F (36.8 C) 99.4 F (37.4 C) 98.3 F (36.8 C) TempSrc: Temporal Temporal Temporal Temporal SpO2: 97% 93% 93% 94% Height: Intake/Output: Intake/Output Summary (Last 24 hours) at 03/14/2022 0735 Last data filed at 03/13/2022 1555 Gross per 24 hour Intake 1900 ml Output 400 ml Net 1500 ml Physical Exam: General: Alert, in no acute distress Head: Normocephalic, atraumatic Neck: supple, trachea is midline, no obvious masses Respiratory: normal effort, no audible wheezes Cardiovascular: regular pulse and no cyanosis Musculoskeletal: moving all extremities, normal tone Skin: warm and dry Psych: normal mood and affect, oriented Abdomen: soft, non distended, non tender : flank with dressing in place Lab Results Component Value Date WBC 6.9 03/14/2022 HGB 10.2 (L) 03/14/2022 HCT 29.4 (L) 03/14/2022 MCV 93.2 03/14/2022 PLT 180 03/14/2022 Lab Results Component Value Date NA 127 03/14/2022 K 2.9 03/14/2022 CL 98 03/14/2022 CO2 24 03/14/2022 BUN 14 03/14/2022 CREATININE 0.72 03/14/2022 GLUCOSE 112 03/14/2022 CALCIUM 8.9 03/14/2022 Urinalysis: No results found for: VOL, APPEARANCE, COLORU, LABSPEC, LABPH, LEUKBLD, NITRU, GLUCOSEU, KETUA, UROBILINOGEN, KETUA, UROBILINOGEN, BILIRUBINUR, OCBU Urine Culture: No results found for: LABURIN Radiology: Assessment: 72 y.o. female POD #2 s/p right PCNL, right stent Plan: - Regular diet - Nausea control, on zofran, allergic to phenergan/compazine - Ancef - Flomax - Hypokalemia, replaced PO and IV - Ambulate - DVT ppx: Lvx - Discharge later today Leydi Mancini MD Urology PGY-2 03/14/2022 7:37 AM Page Research Geologist Resident with questions Seen and independently evaluated by me. Requesting to be able to go home Discussed with the urology resident. I concur with the assessment and plan. Shaun Fierro M.D. * Rodger Soto MD - 03/13/2022 7:48 AM EDT Department of Urology Daily Progress Note Patient Name: Surinder Rasheed Date of : 1950 Admission Date: 03/12/2022 8:18 AM Today's Date: 03/13/2022 Subjective: - Clotted of 16F overnight, replaced with 20F, yellow with pink tinge this am - Having nausea after PO medications this am, no emesis - Tolerating CLD and crackers, "I don't eat much" - Has not been OOB due to catheter in place - Denies fevers, chills Current Medications: Current Facility-Administered Medications Medication Dose Route Frequency Provider Last Rate Last Admin LORazepam (ATIVAN) tablet 0.5 mg 0.5 mg Oral BID Malcom Marcano MD 0.5 mg at 03/12/222132 losartan (COZAAR) tablet 50 mg 50 mg Oral Daily Malcom Marcano MD 50 mg at 03/12/221736 atenolol (TENORMIN) tablet 25 mg 25 mg Oral Daily Malcom Marcano MD 25 mg at 03/12/222132 amLODIPine (NORVASC) tablet 2.5 mg 2.5 mg Oral Daily Malcom Marcano MD 2.5 mg at 03/12/221736 levothyroxine (SYNTHROID) tablet 112 mcg 112 mcg Oral Daily Malcom Marcano MD 112 mcg at pantoprazole (PROTONIX) tablet 40 mg 40 mg Oral Daily Malcom Marcano MD 40 mg at 03/12/22 173 sodium chloride flush 0.9 % injection 5-40 mL 5-40 mL IntraVENous 2 times per day Malcom Marcano MD 10 mL at 03/12/222133 sodium chloride flush 0.9 % injection 5-40 mL 5-40 mL IntraVENous PRN Malcom Marcano MD 0.9 % sodium chloride infusion 25 mL IntraVENous PRN Malcom Marcano MD ondansetron (ZOFRAN-ODT) disintegrating tablet 4 mg 4 mg Oral Q8H PRN Malcom Marcano MD Or ondansetron (ZOFRAN) injection 4 mg 4 mg IntraVENous Q6H PRN Malcom Marcano MD 0.9 % sodium chloride infusion IntraVENous Continuous Malcom Marcano MD 75 mL/hr at 03/12/22 1850New Bag at 03/12/22 1850 acetaminophen (TYLENOL) tablet 1,000 mg 1,000 mg Oral Q6H Malcom Marcano MD 1,000 mg at 03/13/22 0609 oxyCODONE (ROXICODONE) immediate release tablet 5 mg 5 mg Oral Q4H PRN Malcom Marcano MD 5 mg at 03/13/22 0613 Or oxyCODONE (ROXICODONE) immediate release tablet 10 mg 10 mg Oral Q4H PRN Malcom Marcano MD 10 mg at 03/12/221736 morphine sulfate (PF) injection 2 mg 2 mg IntraVENous Q2H PRN Malcom Marcano MD Or morphine sulfate (PF) injection 4 mg 4 mg IntraVENous Q2H PRN Malcom Marcano MD ibuprofen (ADVIL;MOTRIN) tablet 400 mg 400 mg Oral Q6H PRN Malcom Marcano MD enoxaparin (LOVENOX) injection 40 mg 40 mg SubCUTAneous Daily Malcom Marcano MD tamsulosin (FLOMAX) capsule 0.4 mg 0.4 mg Oral Daily Malcom Marcano MD 0.4 mg at 03/12/221736 ceFAZolin (ANCEF) 2000 mg in dextrose 4 % 100 mL IVPB (premix) 2,000 mg IntraVENous Q8H Malcom Marcano MD Stopped at 03/13/22 0640 polyethylene glycol (GLYCOLAX) packet 17 g 17 g Oral Daily PRN Malcom Marcano MD Objective: Vitals: 03/12/22 1900 03/12/22 2056 03/13/22 0058 03/13/22 0537 BP: (!) 155/83 (!) 140/77 116/74 130/79 Pulse: 73 76 70 71 Resp: 18 16 18 Temp: 97 F (36.1 C) 97.3 F (36.3 C) 97.6 F (36.4 C) TempSrc: Temporal Temporal Temporal Temporal SpO2: 97% 96% 96% Height: Intake/Output: Intake/Output Summary (Last 24 hours) at 03/13/2022 0748 Last data filed at 03/13/2022 0352 Gross per 24 hour Intake 700 ml Output 3945 ml Net -3245 ml Physical Exam: General: Alert, in no acute distress Head: Normocephalic, atraumatic Neck: supple, trachea is midline, no obvious masses Respiratory: normal effort, no audible wheezes Cardiovascular: regular pulse and no cyanosis Musculoskeletal: moving all extremities, normal tone Skin: warm and dry Psych: normal mood and affect, oriented Abdomen: soft, non distended, non tender, flank covered with dressing : 20F gusman yellow with pink tinge Lab Results Component Value Date WBC 4.4 03/12/2022 HGB 12.1 03/12/2022 HCT 35.8 03/12/2022 MCV 95.4 03/12/2022 PLT 226 03/12/2022 Lab Results Component Value Date NA 130 03/13/2022 K 3.2 03/13/2022 CL 104 03/13/2022 CO2 23 03/13/2022 BUN 11 03/13/2022 CREATININE 0.75 03/13/2022 GLUCOSE 126 03/13/2022 CALCIUM 8.6 03/13/2022 Urinalysis: No results found for: VOL, APPEARANCE, COLORU, LABSPEC, LABPH, LEUKBLD, NITRU, GLUCOSEU, KETUA, UROBILINOGEN, KETUA, UROBILINOGEN, BILIRUBINUR, OCBU Urine Culture: No results found for: LABURIN Radiology: Assessment: 72 y.o. female POD #1 s/p right PCNL, right stent Plan: - Regular diet - Dc gusman, draining pink tinged this am - Nausea control, on zofran, allergic to phenergan/compazine - Ancef - Flomax - CBC pending - Ambulate - DVT ppx: Lvx - Possible dc later today pending nausea control, amulation Rodger Soto MD PGY-5 Urology Chief Resident - Please page prescription clerk resident with questions * Adilson Montanez RN - 03/12/2022 3:50 PM EDT Pt arrived to [place] [address]. Attached to site monitor and wall O2. VSS. Family updated son Colton via smart call messenger. * Meghan Leavitt RN - 03/12/2022 12:42 PM EDT Pt given ice pack. documented in this [facility] Work Phone: [phone] 777-700101-31-2022 Evaluation + Plan noteExtracted from: Title:Clinical Document Author:KRISH HARRIS Date:12/28/21 PAVILION ADMISSION HISTORY A ND PHYSICIAL CHIEF COMPLAINT: HISTORY OF PRESENT ILLNESS: REVIEW OF SYSTEMS: ACTIVE PROBLEMS: (32) Abnormal EKG (9331703550) Anxiety (98355674) Arthritis (0493346) BMI 32.0-32.9,adult (529874839) Chronic prescription benzodiazepine use (376914360) Dental decay (357094820) Gait instability (47897053) Grade I diastolic dysfunction (1389141) Hematuria (651832873) Hiatal hernia ([id number]) HLD (hyperlipidemia) (68131623) HTN (hypertension) (9328716765) Hypothyroidism (67812555) Insomnia (845754080) Irritable bowel syndrome with constipation and diarrhea (66438669) IT band syndrome (9712073785) Knee osteoarthritis (183644363) Left atrial hypertrophy (1386545630) Leg swelling (3160779859) LVH (left ventricular hypertrophy) (75776393) Microalbuminuria (626302468) Microscopic hematuria (150714095) Noncompliance (4048157904) Obese (6879258469) Obesity (2048417745) Osteoarthritis (9278822203) Pain of left calf (538723818) Preop examination (358446840) Pulmonary hypertension (290997777) Statin intolerance (9475085918) Valvular insufficiency (14994798) Vitamin D deficiency (60595564) MEDICATIONS: Active Inpt Meds: Lactated Ringers Infusion (Bolus LR 1000 mL) Start: 10/20/21 6:00:00 EST, Dose = 1,000 mL, Soln, IV Bolus, PREOP pharm, 18 hour(s), Stop: 10/20/21 23:59:00 EST ceFAZolin (Kefzol) Start: 10/20/21 6:00:00 EST, Dose = 2 gram(s), IV Piggyback, PREOP pharm, Stop: 10/20/21 23:59:00 EST, Rate: 200 mL/hr, Infuse over: 30 minute(s), 0 celecoxib (CeleBREX) Start: 10/20/21 6:00:00 EST, Dose = 400 mg, = 2 cap(s), Oral, PREOP pharm, Stop: 10/20/21 23:59:00 EST, 0 citric acid-sodium citrate (Bicitra) Start: 10/20/21 6:00:00 EST, Dose = 30 mL, Soln, Oral, PREOP pharm, Stop: 10/20/21 23:59:00 EST, 0 famotidine (Pepcid IV) Start: 10/20/21 6:00:00 EST, Dose = 20 mg, = 2 mL, IV Push, PREOP pharm, Stop: 10/20/21 23:59:00 EST, 0 morphine 5 mg + ropivacaine 50 mg + ketorolac 30 mg + EPINEPHrine 0.6 mg (Duramorph PF 1 mg/mL preservative-free injectable solution 5 mg + Naropin 50 mg + Toradol 30 mg + E) Start: 10/20/21 6:00:00 EST, Other, PREOP pharm, 18 hour(s), Stop: 10/20/21 23:59:00 EST, Rate: 0 mL/hr, Infuse over: 0 minute(s), 0 oxyCODONE (OxyCONTIN) Start: 10/20/21 6:00:00 EST, Dose = 10 mg, = 1 tab(s), Oral, PREOP pharm, Stop: 10/20/21 23:59:00 EST, 0 povidone iodine topical (Betadine 10% topical solution) Start: 10/20/21 6:00:00 EST, Dose = 17.5 mL, Topical (INT), PREOP pharm, 18 hour(s), Stop: 10/20/21 23:59:00 EST, mL/hr, Infuse over: 0 minute(s), 0 tranexamic acid (Cyklokapron IVPB) Start: 10/20/21 6:00:00 EST, Dose = 1 gram(s), = 10 mL, IV Piggyback, AsDirected, 18 hour(s), Stop: 10/20/21 23:59:00 EST, Rate: 300 mL/hr, Infuse over: 20 minute(s), 0 tranexamic acid (Cyklokapron IVPB) Start: 10/20/21 6:00:00 EST, Dose = 1 gram(s), = 10 mL, IV Piggyback, AsDirected, 18 hour(s), Stop: 10/20/21 23:59:00 EST, Rate: 300 mL/hr, Infuse over: 20 minute(s), 0 Active PRN Meds: None One Time Meds: None Active IV Meds: Lactated Ringers Infusion 1,000 mL (LR 1,000 mL) Start: 12/28/21 7:44:00 EST, Rate: 50 mL/hr ALLERGIES: (5) Statins Flexeril lisinopril predniSONE promethazine FAMILY HISTORY: SOCIAL HISTORY: PHYSICAL EXAM: VITALS: HfuenyZrskLISghzuKJBkT5FEM1FapvCv(kg) 12/28 07:5936.5147/[id number]/31 80.3 24 Hr Tmax: 36.5 at 12/28 07:59 36 Hr Tmax: 36.5 at 12/28 07:59 Vital Signs are the last 5 in the past 48 hours. Weights display the last 5 within 7 days. Initial Wt: 12/28 80.3 kg 177 lb Current Wt: 12/28 80.3 kg 177 lb GENERAL: HEENT: CARDIOVASCULAR: RESPIRATORY: ABDOMEN: EXREMETIES: NEUROLOGICAL: PSYCHIATRIC: LABS: No 36hr Lab Data DIAGNOSTICS: IMPRESSION: PLAN: History and Physical Update I have examined the patient; reviewed the H&P and there are no changes to the H&P unless noted below. Future Scheduled Tests Laboratory* Stool for Occult Blood (Lab) 09/15/21 * Thyroid Stimulating Hormone 12/25/21 * Free T4 12/25/21 * Urine Culture 07/30/21 * Urine Culture 05/01/21 * Complete Blood Count 12/25/21 * Complete Blood Count 11/18/21 * Free T3 12/25/21 * Lipid Profile 12/25/21 * Microalbumin Level Urine 12/25/21 [facility] 01-31-2022 Hospital Discharge instructions Patient Education 12/28/2021 10:15:34 Nausea and Vomiting, Adult, Kjon-la-Mkth Nausea and Vomiting, Adult Nausea is feeling sick to your stomach or feeling that you are about to throw up (vomit). Vomiting is when food in your stomach is thrown up and out of the mouth. Throwing up can make you feel weak. It can also make you lose too much water in your body (get dehydrated). If you lose too much water in your body, you may: Feel tired. Feel thirsty. Have a dry mouth. Have cracked lips. Go pee (urinate) less often. Older adults and people with other diseases or a weak body defense system (immune system) are at higher risk for losing too much water in the body. If you feel sick to your stomach and you throw up, it is important to follow instructions from your doctor about how to take care of yourself. Follow these instructions at home: Watch your symptoms for any changes. Tell your doctor about them. Follow these instructions to carefor yourself at home. Eating and drinking Take an ORS (oral rehydration solution). This is a drink that is sold at pharmacies and stores. Drink clear fluids in small amounts as you are able, such as: ?Water. ?Ice chips. ?Fruit juice that has water added (diluted fruit juice). ?Low-calorie sports drinks. Eat bland, nejw-sg-ipdehx foods in small amounts as you are able, such as: ?Bananas. ?Applesauce. ?Rice. ?Low-fat (lean) meats. ?[place]. ?Crackers. Avoid drinking fluids that have a lot of sugar or caffeine in them. This includes energy drinks, sports drinks, and soda. Avoid alcohol. Avoid spicy or fatty foods. General instructions Take nmad-dig-bzjvkbo and prescription medicines only as told by your doctor. Drink enough fluid to keep your pee (urine) pale yellow. Wash your hands often with soap and water. If you cannot use soap and water, use hand urban planning professor. Make sure that all people in your home wash their hands well and often. Rest at home while you get better. Watch your condition for any changes. Take slow and deep breaths when you feel sick to your stomach. Keep all follow-up visits as told by your doctor. This is important. Contact a doctor if: Your symptoms get worse. You have new symptoms. You have a fever. You cannot drink fluids without throwing up. You feel sick to your stomach for more than 2 days. You feel light-headed or dizzy. You have a headache. You have muscle cramps. You have a rash. You have pain while peeing. Get help right away if: You have pain in your chest, neck, arm, or jaw. You feel very weak or you pass out (faint). You throw up again and again. You have throw up that is bright red or looks like black coffee grounds. You have bloody or black poop (stools) or poop that looks like tar. You have a very bad headache, a stiff neck, or both. You have very bad pain, cramping, or bloating in your belly (abdomen). You have trouble breathing. You are breathing very quickly. Your heart is beating very quickly. Your skin feels cold and clammy. You feel confused. You have signs of losing too much water in your body, such as: ?Dark pee, very little pee, or no pee. ?Cracked lips. ?Dry mouth. ?Sunken eyes. ?Sleepiness. ?Weakness. These symptoms may be an emergency. Do not wait to see if the symptoms will go away. Get medical help right away. Call your local emergency services (911 in the [place] Do not drive yourself to the hospital. Summary Nausea is feeling sick to your stomach or feeling that you are about to throw up (vomit). Vomiting is when food in your stomach is thrown up and out of the mouth. Follow instructions from your doctor about eating and drinking to keep from losing too much water in your body. Take ddwh-csj-jvzpete and prescription medicines only as told by your doctor. Contact your doctor if your symptoms get worse or you have new symptoms. Keep all follow-up visits as told by your doctor. This is important. This information is not intended to replace advice given to you by your health care provider. Make sure you discuss any questions you have with your health care provider. Document Released: 05/02/2009 Document Revised: 03/07/2020 Document Reviewed: 04/24/2019 [employer] Patient Education 2020 [email or web address]. 12/28/2021 10:15:26 Monitored Anesthesia Care, Care After Monitored Anesthesia Care, Care After These instructions provide you with information about caring for yourself after your procedure. Your health care provider may also give you more specific instructions. Your treatment has been plannedaccording to current medical practices, but problems sometimes occur. Call your health care provider if you have any problems or questions after your procedure. What can I expect after the procedure? After your procedure, you may: Feel sleepy for several hours. Feel clumsy and have poor balance for several hours. Feel forgetful about what happened after the procedure. Have poor judgment for several hours. Feel nauseous or vomit. Have a sore throat if you had a breathing tube during the procedure. Follow these instructions at home: For at least 24 hours after the procedure: Have a responsible adult stay with you. It is important to have someone help care for you until youare awake and alert. Rest as needed. Do not: ?Participate in activities in which you could fall or become injured. ?Drive. ?Use heavy machinery. ?Drink alcohol. ?Take sleeping pills or medicines that cause drowsiness. ?Make important decisions or sign legal documents. ?Take care of children on your own. Eating and drinking Follow the diet that is recommended by your health care provider. If you vomit, drink water, juice, or soup when you can drink without vomiting. Make sure you have little or no nausea before eating solid foods. General instructions Take cqie-kqa-gprkgio and prescription medicines only as told by your health care provider. If you have sleep apnea, surgery and certain medicines can increase your risk for breathing problems. Follow instructions from your health care provider about wearing your sleep device: ?Anytime you are sleeping, including during daytime naps. ?While taking prescription pain medicines, sleeping medicines, or medicines that make you drowsy. If you smoke, do not smoke without supervision. Keep all follow-up visits as told by your health care provider. This is important. Contact a health care provider if: You keep feeling nauseous or you keep vomiting. You feel light-headed. You develop a rash. You have a fever. Get help right away if: You have trouble breathing. Summary For several hours after your procedure, you may feel sleepy and have poor judgment. Have a responsible adult stay with you for at least 24 hours or until you are awake and alert. This information is not intended to replace advice given to you by your health care provider. Make sure you discuss any questions you have with your health care provider. Document Released: 03/06/2017 Document Revised: 02/12/2019 Document Reviewed: 03/06/2017 [employer] Patient Education 2020 [employer]. Follow Up Care 12/22/2021 14:22:41 With:KRISH HARRIS MD Address: [phone] When: Unknown Comments:Call to reschedule colonoscopy in 1 week [facility] 01-13-2022 Hospital Discharge instructions Patient Education 12/10/2021 13:10:00 Diarrhea, Unknown Cause Diarrhea with Uncertain Cause (Adult) Diarrhea is when stools are loose and watery. This can be caused by: Viral infections Bacterial infections Food poisoning Parasites Irritable bowel syndrome (IBS) Inflammatory bowel diseases such as ulcerative colitis, Crohn's disease, and celiac disease Food intolerance, such as to lactose, the sugar found in milk and milk products Reaction to medicines like antibiotics, laxatives, cancer drugs, and antacids Along with diarrhea, you may also have: Abdominal pain and cramping Nausea and vomiting Loss of bowel control Fever and chills Bloody stools In some cases, antibiotics may help to treat diarrhea. You may have a stool sample test. This is done to see what is causing your diarrhea, and if antibiotics will help treat it. The results of a stool sample test may take up to 2 days. The healthcare provider may not give you antibiotics until he or she has the stool test results. Diarrhea can cause dehydration. This is the loss of too much water and other fluids from the body. When this occurs, body fluid must be replaced. This can be done with oral rehydration solutions. Oral rehydration solutions are available at drugstores and grocery stores without a prescription. Sports drinks are not the best choice if you are very dehydrated. They have too much sugar and not enoughelectrolytes. Home care Follow all instructions given by your healthcare provider. Rest at home for the next 24 hours, or until you feel better. Avoid caffeine, tobacco, and alcohol. These can make diarrhea, cramping, and pain worse. If taking medicines: Fyhq-nqq-slqsils nausea and diarrhea medicines are generally OK unless you experience fever or blood stool. Check with your doctor first in those circumstances. You may use acetaminophen or NSAID medicines like ibuprofen or naproxen to reduce pain and fever. Don t use these if you have chronic liver or kidney disease, or ever had a stomach ulcer or gastrointestinal bleeding. Don't use NSAID medicines if you are already taking one for another condition (like arthritis) or are on daily aspirin therapy (such as for heart disease or after a stroke). Talk with your healthcare provider first. If antibiotics were prescribed, be sure you take them until they are finished. Don t stop taking them even when you feel better. Antibiotics must be taken as a full course. To prevent the spread of illness: Remember that washing with soap and water and using alcohol-based urban planning professor is the best way to prevent the spread of infection. Dry your hands with a single use towel (like a paper towel). Clean the toilet after each use. Wash your hands before eating. Wash your hands before and after preparing food. Keep in mind that people with diarrhea or vomitingshould not prepare food for others. Wash your hands after using cutting boards, countertops, and knives that have been in contact with raw foods. Wash and then peel fruits and vegetables. Keep uncooked meats away from cooked and tukmi-aa-vso foods. Use a food thermometer when cooking. Cook poultry to at least 165 F (74 C). Cook ground meat (beef,veal, pork, herring) to at least 160 F (71 C). Cook fresh beef, veal, herring, and pork to at least 145 F(63 C). Don t eat raw or undercooked eggs (poached or mara side up), poultry, meat, or unpasteurized milk and juices. Food and drinks The main goal while treating vomiting or diarrhea is to prevent dehydration. This is done by takingsmall amounts of liquids often. Keep in mind that liquids are more important than food right now. Drink only small amounts of liquids at a time. Don t force yourself to eat, especially if you are having cramping, vomiting, or diarrhea. Don t eat large amounts at a time, even if you are hungry. If you eat, avoid fatty, greasy, spicy, or fried foods. Don t eat dairy foods or drink milk if you have diarrhea. These can make diarrhea worse. During the first 24 hours you can try: Oral rehydration solutions. Sports drinks may be used if you are not too dehydrated and are otherwise healthy. Soft drinks without caffeine Jennifer luda Water (plain or flavored) Decaf tea or coffee Clear broth, consomm , or bouillon Gelatin, popsicles, or frozen fruit juice bars The second 24 hours, if you are feeling better, you can add: Hot cereal, plain toast, bread, rolls, or crackers Plain noodles, rice, mashed potatoes, chicken noodle soup, or rice soup Unsweetened canned fruit (no pineapple) Bananas As you recover: Limit fat intake to less than 15 grams per day. Don t eat margarine, butter, oils, mayonnaise, sauces, gravies, fried foods, peanut butter, meat, poultry, or fish. Limit fiber. Don t eat raw or cooked vegetables, fresh fruits except bananas, or bran cereals. Limit caffeine and chocolate. Limit dairy. Don t use spices or seasonings except salt. Go back to your normal diet over time, as you feel better and your symptoms improve. If the symptoms come back, go back to a simple diet or clear liquids. Follow-up care Follow up with your healthcare provider, or as advised. If a stool sample was taken or cultures were done, call the healthcare provider for the results as instructed. Call 911 Call 911 if you have any of these symptoms: Trouble breathing Confusion Extreme drowsiness or trouble walking Loss of consciousness Rapid heart rate Chest pain Stiff neck Seizure When to seek medical advice Call your healthcare provider right away if any of these occur: Abdominal pain that gets worse Constant lower right abdominal pain Continued vomiting and inability to keep liquids down Diarrhea more than 5 times a day Blood in vomit or stool Dark urine or no urine for 8 hours, dry mouth and tongue, tiredness, weakness, or dizziness Drowsiness New rash You don t get better in 2 to 3 days Fever of 100.4 F (38 C) or higher, or as directed by your healthcare provider [id number] [employer]. [address] [place] [address]. All rights reserved. This information is not intended as a substitute for professional medical care. Always follow yourhealthcare professional's instructions. Follow Up Care 12/10/2021 11:18:40 With:KRISH HARRIS MD Address: [phone] When: Unknown Comments:Call today for instructions. [facility] 12-13-2021 Hospital Discharge instructions Patient Education 11/09/2021 15:17:45 Urinary Tract Infections in Women Urinary Tract Infections in Women Urinary tract infections (UTIs) are most often caused by bacteria. These bacteria enter the urinarytract. The bacteria may come from outside the body. Or they may travel from the skin outside the rectum or vagina into the urethra. Female anatomy makes it easy for bacteria from the bowel to enter awoman s urinary tract, which is the most common source of UTI. This means women develop UTIs more often than men. Pain in or around the urinary tract is a common UTI symptom. But the only way to knowfor sure if you have a UTI for the healthcare provider to test your urine. The two tests that may be done are the urinalysis and urine culture. Types of UTIs Cystitis. A bladder infection (cystitis) is the most common UTI in women. You may have urgent or frequent urination. You may also have pain, burning when you urinate, and bloody urine. Urethritis. This is an inflamed urethra, which is the tube that carries urine from the bladder to outside the body. You may have lower stomach or back pain. You may also have urgent or frequent urination. Pyelonephritis. This is a kidney infection. If not treated, it can be serious and damage your kidneys. In severe cases, you may need to stay in the hospital. You may have a fever and lower back pain. Medicines to treat a UTI Most UTIs are treated with antibiotics. These kill the bacteria. The length of time you need to take them depends on the type of infection. It may be as short as 3 days. If you have repeated UTIs, you may need a low-dose antibiotic for several months. Take antibiotics exactly as directed. Don t stop taking them until all of the medicine is gone. If you stop taking the antibiotic too soon, the infection may not go away. You may also develop a resistance to the antibiotic. This can make it much harder to treat. Lifestyle changes to treat and prevent UTIs The lifestyle changes below will help get rid of your UTI. They may also help prevent future UTIs. Drink plenty of fluids. This includes water, juice, or other caffeine-free drinks. Fluids help flush bacteria out of your body. Empty your bladder. Always empty your bladder when you feel the urge to urinate. And always urinatebefore going to sleep. Urine that stays in your bladder can lead to infection. Try to urinate before and after sex as well. Practice good personal hygiene. Wipe yourself from front to back after using the toilet. This helpskeep bacteria from getting into the urethra. Use condoms during sex. These help prevent UTIs caused by sexually transmitted bacteria. Also don'tuse spermicides during sex. These can increase the risk for UTIs. Choose other forms of control instead. For women who tend to get UTIs after sex, a low-dose of a preventive antibiotic may be used. Be sure to discuss this option with your healthcare provider. Follow up with your healthcare provider as directed. He or she may test to make sure the infection has cleared. If needed, more treatment may be started. [id number] [employer]. [address] [place] [address], [place] [address]. All rights reserved. This information is not intended as a substitute for professional medical care. Always follow yourhealthcare professional's instructions. Follow Up Care 11/09/2021 14:29:31 With:Your urologist Address: When:2-4 days only if needed With:Go to emergency room if symptoms worsen Address:Unknown When:2-4 days [facility] 12-05-2021 Hospital Discharge instructions Patient Education 11/01/2021 08:39:37 Diarrhea, Unknown Cause Diarrhea with Uncertain Cause (Adult) Diarrhea is when stools are loose and watery. This can be caused by: Viral infections Bacterial infections Food poisoning Parasites Irritable bowel syndrome (IBS) Inflammatory bowel diseases such as ulcerative colitis, Crohn's disease, and celiac disease Food intolerance, such as to lactose, the sugar found in milk and milk products Reaction to medicines like antibiotics, laxatives, cancer drugs, and antacids Along with diarrhea, you may also have: Abdominal pain and cramping Nausea and vomiting Loss of bowel control Fever and chills Bloody stools In some cases, antibiotics may help to treat diarrhea. You may have a stool sample test. This is done to see what is causing your diarrhea, and if antibiotics will help treat it. The results of a stool sample test may take up to 2 days. The healthcare provider may not give you antibiotics until he or she has the stool test results. Diarrhea can cause dehydration. This is the loss of too much water and other fluids from the body. When this occurs, body fluid must be replaced. This can be done with oral rehydration solutions. Oral rehydration solutions are available at drugstores and grocery stores without a prescription. Sports drinks are not the best choice if you are very dehydrated. They have too much sugar and not enoughelectrolytes. Home care Follow all instructions given by your healthcare provider. Rest at home for the next 24 hours, or until you feel better. Avoid caffeine, tobacco, and alcohol. These can make diarrhea, cramping, and pain worse. If taking medicines: Mwwh-rcp-adzsdwf nausea and diarrhea medicines are generally OK unless you experience fever or blood stool. Check with your doctor first in those circumstances. You may use acetaminophen or NSAID medicines like ibuprofen or naproxen to reduce pain and fever. Don t use these if you have chronic liver or kidney disease, or ever had a stomach ulcer or gastrointestinal bleeding. Don't use NSAID medicines if you are already taking one for another condition (like arthritis) or are on daily aspirin therapy (such as for heart disease or after a stroke). Talk with your healthcare provider first. If antibiotics were prescribed, be sure you take them until they are finished. Don t stop taking them even when you feel better. Antibiotics must be taken as a full course. To prevent the spread of illness: Remember that washing with soap and water and using alcohol-based urban planning professor is the best way to prevent the spread of infection. Dry your hands with a single use towel (like a paper towel). Clean the toilet after each use. Wash your hands before eating. Wash your hands before and after preparing food. Keep in mind that people with diarrhea or vomitingshould not prepare food for others. Wash your hands after using cutting boards, countertops, and knives that have been in contact with raw foods. Wash and then peel fruits and vegetables. Keep uncooked meats away from cooked and dqvup-ku-tdl foods. Use a food thermometer when cooking. Cook poultry to at least 165 F (74 C). Cook ground meat (beef,veal, pork, herring) to at least 160 F (71 C). Cook fresh beef, veal, herring, and pork to at least 145 F(63 C). Don t eat raw or undercooked eggs (poached or mara side up), poultry, meat, or unpasteurized milk and juices. Food and drinks The main goal while treating vomiting or diarrhea is to prevent dehydration. This is done by takingsmall amounts of liquids often. Keep in mind that liquids are more important than food right now. Drink only small amounts of liquids at a time. Don t force yourself to eat, especially if you are having cramping, vomiting, or diarrhea. Don t eat large amounts at a time, even if you are hungry. If you eat, avoid fatty, greasy, spicy, or fried foods. Don t eat dairy foods or drink milk if you have diarrhea. These can make diarrhea worse. During the first 24 hours you can try: Oral rehydration solutions. Sports drinks may be used if you are not too dehydrated and are otherwise healthy. Soft drinks without caffeine Jennifer luda Water (plain or flavored) Decaf tea or coffee Clear broth, consomm , or bouillon Gelatin, popsicles, or frozen fruit juice bars The second 24 hours, if you are feeling better, you can add: Hot cereal, plain toast, bread, rolls, or crackers Plain noodles, rice, mashed potatoes, chicken noodle soup, or rice soup Unsweetened canned fruit (no pineapple) Bananas As you recover: Limit fat intake to less than 15 grams per day. Don t eat margarine, butter, oils, mayonnaise, sauces, gravies, fried foods, peanut butter, meat, poultry, or fish. Limit fiber. Don t eat raw or cooked vegetables, fresh fruits except bananas, or bran cereals. Limit caffeine and chocolate. Limit dairy. Don t use spices or seasonings except salt. Go back to your normal diet over time, as you feel better and your symptoms improve. If the symptoms come back, go back to a simple diet or clear liquids. Follow-up care Follow up with your healthcare provider, or as advised. If a stool sample was taken or cultures were done, call the healthcare provider for the results as instructed. Call 911 Call 911 if you have any of these symptoms: Trouble breathing Confusion Extreme drowsiness or trouble walking Loss of consciousness Rapid heart rate Chest pain Stiff neck Seizure When to seek medical advice Call your healthcare provider right away if any of these occur: Abdominal pain that gets worse Constant lower right abdominal pain Continued vomiting and inability to keep liquids down Diarrhea more than 5 times a day Blood in vomit or stool Dark urine or no urine for 8 hours, dry mouth and tongue, tiredness, weakness, or dizziness Drowsiness New rash You don t get better in 2 to 3 days Fever of 100.4 F (38 C) or higher, or as directed by your healthcare provider [id number] [employer]. [address] [place] [address]. All rights reserved. This information is not intended as a substitute for professional medical care. Always follow yourhealthcare professional's instructions. Follow Up Care 11/01/2021 06:59:33 With:STACEY NEWBERRY Address: [address] [facility] [place] [address]- [phone] Business (1) When:1-2 days Comments:Return to ED if symptoms worsen [facility] 12-03-2021 Hospital Discharge instructions Patient Education 10/30/2021 19:32:11 Diarrhea, Unknown Cause Diarrhea with Uncertain Cause (Adult) Diarrhea is when stools are loose and watery. This can be caused by: Viral infections Bacterial infections Food poisoning Parasites Irritable bowel syndrome (IBS) Inflammatory bowel diseases such as ulcerative colitis, Crohn's disease, and celiac disease Food intolerance, such as to lactose, the sugar found in milk and milk products Reaction to medicines like antibiotics, laxatives, cancer drugs, and antacids Along with diarrhea, you may also have: Abdominal pain and cramping Nausea and vomiting Loss of bowel control Fever and chills Bloody stools In some cases, antibiotics may help to treat diarrhea. You may have a stool sample test. This is done to see what is causing your diarrhea, and if antibiotics will help treat it. The results of a stool sample test may take up to 2 days. The healthcare provider may not give you antibiotics until he or she has the stool test results. Diarrhea can cause dehydration. This is the loss of too much water and other fluids from the body. When this occurs, body fluid must be replaced. This can be done with oral rehydration solutions. Oral rehydration solutions are available at drugstores and grocery stores without a prescription. Sports drinks are not the best choice if you are very dehydrated. They have too much sugar and not enoughelectrolytes. Home care Follow all instructions given by your healthcare provider. Rest at home for the next 24 hours, or until you feel better. Avoid caffeine, tobacco, and alcohol. These can make diarrhea, cramping, and pain worse. If taking medicines: Yner-wri-hammjgy nausea and diarrhea medicines are generally OK unless you experience fever or blood stool. Check with your doctor first in those circumstances. You may use acetaminophen or NSAID medicines like ibuprofen or naproxen to reduce pain and fever. Don t use these if you have chronic liver or kidney disease, or ever had a stomach ulcer or gastrointestinal bleeding. Don't use NSAID medicines if you are already taking one for another condition (like arthritis) or are on daily aspirin therapy (such as for heart disease or after a stroke). Talk with your healthcare provider first. If antibiotics were prescribed, be sure you take them until they are finished. Don t stop taking them even when you feel better. Antibiotics must be taken as a full course. To prevent the spread of illness: Remember that washing with soap and water and using alcohol-based urban planning professor is the best way to prevent the spread of infection. Dry your hands with a single use towel (like a paper towel). Clean the toilet after each use. Wash your hands before eating. Wash your hands before and after preparing food. Keep in mind that people with diarrhea or vomitingshould not prepare food for others. Wash your hands after using cutting boards, countertops, and knives that have been in contact with raw foods. Wash and then peel fruits and vegetables. Keep uncooked meats away from cooked and mhgua-fj-syb foods. Use a food thermometer when cooking. Cook poultry to at least 165 F (74 C). Cook ground meat (beef,veal, pork, herring) to at least 160 F (71 C). Cook fresh beef, veal, herring, and pork to at least 145 F(63 C). Don t eat raw or undercooked eggs (poached or mara side up), poultry, meat, or unpasteurized milk and juices. Food and drinks The main goal while treating vomiting or diarrhea is to prevent dehydration. This is done by takingsmall amounts of liquids often. Keep in mind that liquids are more important than food right now. Drink only small amounts of liquids at a time. Don t force yourself to eat, especially if you are having cramping, vomiting, or diarrhea. Don t eat large amounts at a time, even if you are hungry. If you eat, avoid fatty, greasy, spicy, or fried foods. Don t eat dairy foods or drink milk if you have diarrhea. These can make diarrhea worse. During the first 24 hours you can try: Oral rehydration solutions. Sports drinks may be used if you are not too dehydrated and are otherwise healthy. Soft drinks without caffeine Jennifer luda Water (plain or flavored) Decaf tea or coffee Clear broth, consomm , or bouillon Gelatin, popsicles, or frozen fruit juice bars The second 24 hours, if you are feeling better, you can add: Hot cereal, plain toast, bread, rolls, or crackers Plain noodles, rice, mashed potatoes, chicken noodle soup, or rice soup Unsweetened canned fruit (no pineapple) Bananas As you recover: Limit fat intake to less than 15 grams per day. Don t eat margarine, butter, oils, mayonnaise, sauces, gravies, fried foods, peanut butter, meat, poultry, or fish. Limit fiber. Don t eat raw or cooked vegetables, fresh fruits except bananas, or bran cereals. Limit caffeine and chocolate. Limit dairy. Don t use spices or seasonings except salt. Go back to your normal diet over time, as you feel better and your symptoms improve. If the symptoms come back, go back to a simple diet or clear liquids. Follow-up care Follow up with your healthcare provider, or as advised. If a stool sample was taken or cultures were done, call the healthcare provider for the results as instructed. Call 911 Call 911 if you have any of these symptoms: Trouble breathing Confusion Extreme drowsiness or trouble walking Loss of consciousness Rapid heart rate Chest pain Stiff neck Seizure When to seek medical advice Call your healthcare provider right away if any of these occur: Abdominal pain that gets worse Constant lower right abdominal pain Continued vomiting and inability to keep liquids down Diarrhea more than 5 times a day Blood in vomit or stool Dark urine or no urine for 8 hours, dry mouth and tongue, tiredness, weakness, or dizziness Drowsiness New rash You don t get better in 2 to 3 days Fever of 100.4 F (38 C) or higher, or as directed by your healthcare provider [phone] [employer]. [address] [place] [address]. All rights reserved. This information is not intended as a substitute for professional medical care. Always follow yourhealthcare professional's instructions. Follow Up Care 10/30/2021 18:54:38 With:STACEY NEWBERRY Address: [address] [facility] [place] [address]- [phone] Business (1) When:2-4 days Comments:Stop taking MiraLAX for now, be sure to drink plenty of oral fluids. You may try Lomotil as well. Follow-up closely with your doctor. [facility] 10-19-2021 Evaluation + Plan note Future Scheduled Tests Laboratory* Stool for Occult Blood (Lab) 09/15/21 * Thyroid Stimulating Hormone 12/25/21 * Thyroid Stimulating Hormone 03/09/22 * Free T4 03/09/22 * Urine Culture 07/30/21 * Urine Culture 01/28/22 * Complete Blood Count 12/25/21 * Complete Blood Count 11/18/21 * Free T3 03/09/22 * Microalbumin Level Urine 12/25/21 [facility] Evaluation + Plan note Future Appointments Appointment Date:10/26/2021 01:30:00 PM Scheduled Provider: Location:[facility] Appointment Type:PT Outpatient Evaluation Appointment Date:11/10/2021 01:00:00 PM Scheduled Provider:STACEY NEWBERRY DO Location:[facility] Appointment Type:PC OV Future Scheduled Tests Laboratory* Stool for Occult Blood (Lab) 09/15/21 * Urine Culture 07/30/21 * Urine Culture 05/01/21 [facility] Evaluation + Plan note Future Appointments Appointment Date:10/05/2021 10:30:00 AM Scheduled Provider: Location:[facility] Appointment Type:CT Knee w/o Contrast Right Appointment Date:11/10/2021 01:00:00 PM Scheduled Provider:STACEY NEWBERRY DO Location:[facility] Appointment Type: OV Future Scheduled Tests Laboratory* Stool for Occult Blood (Lab) 09/15/21 * Urine Culture 07/30/21 * Urine Culture 05/01/21 Radiology* CT Knee w/o Contrast Right 10/05/21 [facility] Evaluation + Plan note Future Appointments Appointment Date:12/14/2021 01:00:00 PM Scheduled Provider:STACEY NEWBERRY DO Location:[facility] Appointment Type:PC OV Future Scheduled Tests Laboratory* Stool for Occult Blood (Lab) 09/15/21 * Urine Culture 07/30/21 * Urine Culture 05/01/21 [facility] Evaluation + Plan note Future Appointments Appointment Date:12/14/2021 01:00:00 PM Scheduled Provider:STACEY NEWBERRY DO Location:[facility] Appointment Type:PC OV Diagnostic Tests Pending * Stool Culture 11/01/21 * Shiga Toxins 1 and 2 11/01/21 * Urine Culture 11/01/21 Future Scheduled Tests Laboratory* Stool for Occult Blood (Lab) 09/15/21 * Urine Culture 07/30/21 * Urine Culture 05/01/21 [facility] [facility] Evaluation + Plan note Future Appointments Appointment Date:12/14/2021 01:00:00 PM Scheduled Provider:STACEY NEWBERRY DO Location:[facility] Appointment Type:PC OV Future Scheduled Tests Laboratory* Stool for Occult Blood (Lab) 09/15/21 * Urine Culture 07/30/21 * Urine Culture 05/01/21 * Complete Blood Count 11/18/21 [facility] Evaluation + Plan note Future Appointments Appointment Date:02/22/2022 09:30:00 AM Scheduled Provider:STACEY NEWBERRY DO Location:[facility] Appointment Type:PC OV Future Scheduled Tests Laboratory* Stool for Occult Blood (Lab) 09/15/21 * Thyroid Stimulating Hormone 12/25/21 * Urine Culture 07/30/21 * Urine Culture 05/01/21 * Complete Blood Count 12/25/21 * Complete Blood Count 11/18/21 * Microalbumin Level Urine 12/25/21 [facility] Evaluation + Plan note Future Appointments Appointment Date:02/22/2022 09:30:00 AM Scheduled Provider:STACEY NEWBERRY DO Location:[facility] Appointment Type:PC OV Future Scheduled Tests Laboratory* Stool for Occult Blood (Lab) 09/15/21 * Thyroid Stimulating Hormone 12/25/21 * Thyroid Stimulating Hormone 03/09/22 * Free T4 03/09/22 * Urine Culture 07/30/21 * Urine Culture 01/28/22 * Urine Culture 05/01/21 * Complete Blood Count 12/25/21 * Complete Blood Count 11/18/21 * Free T3 03/09/22 * Microalbumin Level Urine 12/25/21 [facility] Evaluation + Plan note Future Appointments Appointment Date:04/06/2022 11:45:00 AM Scheduled Provider:STACEY NEWBERRY DO Location:[facility] Appointment Type:PC OV Future Scheduled Tests Laboratory* Stool for Occult Blood (Lab) 09/15/21 * Thyroid Stimulating Hormone 12/25/21 * Thyroid Stimulating Hormone 03/09/22 * Free T4 03/09/22 * Urine Culture 07/30/21 * Urine Culture 01/28/22 * Urine Culture 05/01/21 * Complete Blood Count 12/25/21 * Complete Blood Count 11/18/21 * Free T3 03/09/22 * Microalbumin Level Urine 12/25/21 [facility] Evaluation + Plan note Future Appointments Appointment Date:09/28/2022 08:30:00 AM Scheduled Provider:STACEY NEWBERRY DO Location:[facility] Appointment Type:PC OV Controlled Medication Future Scheduled Tests Laboratory* Stool for Occult Blood (Lab) 09/15/21 * Thyroid Stimulating Hormone 12/25/21 * Thyroid Stimulating Hormone 03/09/22 * Free T4 03/09/22 * Urine Culture 07/30/21 * Urine Culture 01/28/22 * Complete Blood Count 12/25/21 * Complete Blood Count 11/18/21 * Free T3 03/09/22 * Microalbumin Level Urine 12/25/21 [facility] Evaluation + Plan note Future Appointments Appointment Date:09/28/2022 08:30:00 AM Scheduled Provider:STACEY NEWBERRY DO Location:[facility] Appointment Type:PC OV Controlled Medication Future Scheduled Tests Laboratory* Stool for Occult Blood (Lab) 09/15/21 * Thyroid Stimulating Hormone 12/25/21 * Thyroid Stimulating Hormone 03/09/22 * Free T4 03/09/22 * Urine Culture 01/28/22 * Complete Blood Count 12/25/21 * Complete Blood Count 11/18/21 * Free T3 03/09/22 * Microalbumin Level Urine 12/25/21 [facility] Evaluation + Plan note Future Appointments Appointment Date:02/15/2023 11:00:00 AM Scheduled Provider:STACEY NEWBERRY DO Location:[facility] Appointment Type:PC OV Future Scheduled Tests Laboratory* Urinalysis 02/06/23 * Thyroid Stimulating Hormone 02/06/23 * Thyroid Stimulating Hormone 03/09/22 * Free T4 02/06/23 * Free T4 03/09/22 * A1C Hemoglobin 02/06/23 * Complete Blood Count 02/06/23 * Free T3 03/09/22 * Lipid Profile 02/06/23 * Complete Metabolic Panel 02/06/23 * MISC Lab Send out (Blood Specimens) 02/06/23 [facility] Evaluation + Plan note Future Appointments Appointment Date:06/07/2023 09:30:00 AM Scheduled Provider:STACEY NEWBERRY DO Location:[facility] Appointment Type:[facility] Future Scheduled Tests Laboratory* Thyroid Stimulating Hormone 03/09/22 * Free T4 03/09/22 * Free T3 03/09/22 * MISC Lab Send out (Blood Specimens) 02/15/23 [facility] Evaluation + Plan note Future Appointments Appointment Date:11/15/2023 09:30:00 AM Scheduled Provider:STACEY NEWBERRY DO Location:[facility] Appointment Type:PC Wellness Medicare Future Scheduled Tests Laboratory* Thyroid Stimulating Hormone 07/05/23 * Free T4 07/05/23 * Complete Blood Count 06/07/23 * MISC Lab Send out (Blood Specimens) 02/15/23 [facility] [employer]aluation + Plan note Future Appointments Appointment Date:11/15/2023 09:30:00 AM Scheduled Provider:STACEY NEWBERRY DO Location:[facility] Appointment Type:PC Wellness Medicare Future Scheduled Tests Laboratory* Thyroid Stimulating Hormone 07/05/23 * Free T4 07/05/23 * Complete Blood Count 06/07/23 * MISC Lab Send out (Blood Specimens) 02/15/23 Radiology* CT Abdomen and Pelvis w/o contrast 11/03/23 [facility] evaluation + Plan note Future Appointments Appointment Date:11/08/2023 01:00:00 PM Scheduled Provider: Location:[facility] Appointment Type:CT Abdomen and Pelvis w/o Contrast Appointment Date:11/15/2023 09:30:00 AM Scheduled Provider:STACEY NEWBERRY DO Location:[facility] Appointment Type:PC Wellness Medicare Diagnostic Tests Pending * Urine Culture 11/07/23 Future Scheduled Tests Laboratory* Thyroid Stimulating Hormone 07/05/23 * Free T4 07/05/23 * Complete Blood Count 06/07/23 * [facility] Lab Send out (Blood Specimens) 02/15/23 Radiology* CT Abdomen and Pelvis w/o contrast 11/08/23 [facility] Evaluation + Plan note Future Appointments Appointment Date:12/23/2023 08:45:00 AM Scheduled Provider: Location:[facility] Appointment Type:PC Nurse Lab Appointment Date:01/06/2024 10:30:00 AM Scheduled Provider:STACEY NEWBERRY DO Location:[facility] Appointment Type:PC OV Future Scheduled Tests Laboratory* Vitamin B1 (Thiamine), Blood 11/15/23 * Folate Level 11/15/23 * Thyroid Stimulating Hormone 07/05/23 * Thyroid Stimulating Hormone 11/15/23 * Free T4 07/05/23 * Free T4 11/15/23 * Vitamin B12 Level 11/15/23 * A1C Hemoglobin 11/15/23 * Complete Blood Count 06/07/23 * Complete Blood Count 11/15/23 * Free T3 11/15/23 * Hepatitis C Antibody IgG 11/15/23 * Vitamin D Level 11/15/23 * Complete Metabolic Panel 11/15/23 * [facility] Lab Send out (Blood Specimens) 02/15/23 Radiology* BD Bone Density DEXA Axial Skeleton 11/15/23 * MRI Brain w/o Contrast 11/15/23 [facility] Evaluation + Plan note Future Appointments Appointment Date:12/23/2023 08:45:00 AM Scheduled Provider: Location:[facility] Appointment Type:PC Nurse Lab Appointment Date:01/06/2024 10:30:00 AM Scheduled Provider:STACEY NEWBERRY DO Location:[facility] Appointment Type: OV Diagnostic Tests Pending * Urine Culture 11/20/23 Future Scheduled Tests Laboratory* Vitamin B1 (Thiamine), Blood 11/15/23 * Folate Level 11/15/23 * Thyroid Stimulating Hormone 07/05/23 * Thyroid Stimulating Hormone 11/15/23 * Free T4 07/05/23 * Free T4 11/15/23 * Vitamin B12 Level 11/15/23 * A1C Hemoglobin 11/15/23 * Complete Blood Count 06/07/23 * Complete Blood Count 11/15/23 * Free T3 11/15/23 * Hepatitis C Antibody IgG 11/15/23 * Vitamin D Level 11/15/23 * Complete Metabolic Panel 11/15/23 * [facility] Lab Send out (Blood Specimens) 02/15/23 Radiology* BD Bone Density DEXA Axial Skeleton 11/15/23 * MRI Brain w/o Contrast 11/15/23 [facility] Evaluation + Plan note Future Appointments Appointment Date:03/23/2024 01:30:00 PM Scheduled Provider:STACE[facility] NEWBERRY [facility] Type:PC OV Future Scheduled Tests Radiology* BD Bone Density DEXA Axial Skeleton 11/15/23 * MRI Brain w/o Contrast 01/13/24 [facility] Evaluation + Plan note Future Appointments Appointment Date:03/23/2024 01:30:00 PM Scheduled Provider:STACEY NEWBERRY DO Location:[facility] Appointment Type:PC OV Future Scheduled Tests Radiology* BD Bone Density DEXA Axial Skeleton 11/15/23 [facility] Evaluation + Plan note Future Appointments Appointment Date:01/13/2024 01:30:00 PM Scheduled Provider:STACEY NEWBERRY DO [facility] Type:PC OV Future Scheduled Tests Laboratory* Pathology Flow Cytometry Request 12/21/23 Radiology* BD Bone Density DEXA Axial Skeleton 11/15/23 * MRI Brain w/o Contrast 11/15/23 [facility] Evaluation + Plan note Future Appointments Appointment Date:11/15/2023 09:30:00 AM Scheduled Provider:STACEY NEWBERRY DO Location:[facility] Appointment Type: Wellness Medicare Diagnostic Tests Pending * Urine Culture 11/12/23 Future Scheduled Tests Laboratory* Thyroid Stimulating Hormone 07/05/23 * Free T4 07/05/23 * Complete Blood Count 06/07/23 * [facility] Lab Send out (Blood Specimens) 02/15/23 [facility] Evaluation note* Diagnosis Renal calculus, right- Primary Calculus of kidney documented in this encounter [facility] Work Phone: Evaluation note* Diagnosis Allergic reaction, initial encounter- Primary [facility] Diagnosis Renal calculi Calculus of kidney documented in this encounter [facility] Work Phone: Evaluation note* Diagnosis Acute cystitis with hematuria Acute cystitis documented in this encounter [facility] Work Phone: Evaluation note* Diagnosis Onset Date Resolution Status Essential hypertension acute Family history of coronary artery disease acute Mixed hyperlipidemia acute Palpitations acute Preoperative cardiovascular examination acute Valvular heart disease acute Anxiety acute Debility acute Hypothyroidism acute Status post total right knee replacement acute Hypertension [facility] Work Phone: Evaluation note* Diagnosis Renal calculus, left Calculus of kidney documented [facility]* Diagnosis Right kidney stone- Primary Burning with urination Dysuria [facility] Diagnosis Right kidney stone- Primary Hydronephrosis, right Hydronephrosis [facility] Diagnosis Right kidney stone Hydronephrosis, right Hydronephrosis Calculus of kidney [facility]* Diagnosis UPJ obstruction, acquired [facility]* Diagnosis Right kidney stone- Primary UPJ obstruction, acquired [facility]* Diagnosis Right kidney stone UPJ obstruction, acquired [facility]* Diagnosis Right kidney stone- Primary [facility]* Diagnosis Right kidney stone- Primary [facility]* Diagnosis Urinary tract infection without hematuria, site unspecified- Primary Renal calculus Calculus of kidney [facility]* Diagnosis Right kidney stone Renal calculus Calculus of kidney [facility] noteNo assessment information availableWCincinnati Shrin[facility] Work Phone: Evaluation note* Diagnosis Nephrolithiasis- Primary Calculus of kidney documented in this encounter [facility] course Narrative No data available for this section [facility] Hospital Discharge instructions No data available for this section [facility] Hospital Discharge instructions* Attachments The following attachments cannot be sent through Care Everywhere. * Laser Lithotripsy for Kidney Stones Discharge Instructions (Spanish) * Ureteral Stent Discharge Instructions (Spanish) [facility] No data available for this section [facility] Reason for referral (narrative)No reason for referral information availableWCincinnati Shriners Hospital Work Phone: Reason for visit Narrative* Imaging (Routine) - Closed Specialty Diagnoses / Procedures Referred By Eli carver Referred To Contact Radiology Diagnoses Right kidney stone UPJ obstruction, acquired Procedures CT abdomen pelvis wo IV contrast Sarath Ramos MD [address] [address] Phone: tel: fax: Referral ID Status Reason Start Date Expiration Date Visits Re quested Visits Authorized [id number] Closed 02/14/2024 02/13/2025 1 1 [facility] for visit Narrative* Auth/Cert (Routine) Specialty Diagnoses / Procedures Referred By Eli carver Referred To Contact Diagnoses Renal calculus Procedures AK CYSTO BLADDER W/URETERAL CATHETERIZATION AK CYSTO W/URETEROSCOPY W/LITHOTRIPSY AK CYSTO W/INSERT URETERAL STENT CYSTOSCOPY, WITH RETROGRADE PYELOGRAM RIGHT URETEROSCOPY WITH HOLIUM LASER LITHOTRIPSY RIGHT URETERAL STENT PLACEMENT Sarath Ramos MD [address] [address] Phone: tel: fax: Referral ID Status Reason Start Date Expiration Date Visits Re quested Visits Authorized [id number] 02/07/2025 1 1 [facility] note* CASSIDY Dwyer: PERFORM Event Display: Patient Summary Documents Authored Date: [id number] [facility] Advance Directives No Advanced Directives Records FoundDocuments on File Type Date Recorded 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 ACP-Advance Directive 03/05/2022 Latest Code Status on File Code Status Date Activated Date Inactivated Comments Full Code 03/12/2022 8:40 AM 03/12/2022 4:59 PM Advance Directive Response Recorded Date/ Time Name of Medical Power of Rd Manager Unsure which c hild December 23, 2022 10:44am Advance Directives Yes June 10 7:18am Living Will Yes December 23 10:44am Power of Rd Manager Yes December 23, 2022 10:44am Latest Code Status on File Code Status Date Activated Date Inactivated Comments Full Code 09/24/2022 11:19 PM 09/25/2022 3:46 PM Latest Code Status on File Code Status Date Activated Date Inactivated Comments Full Code 12/06/2023 6:52 AM 12/06/2023 12:44 PM Code Status History Code Status Date Activated Date Inactivated Comments Full Code 09/24/2022 11:19 PM 09/25/2022 3:46 PM Date Activated Date Inactivated Comments 12/06/2023 6:52 AM 12/06/2023 12:44 PM Date Activated Date Inactivated Comments 09/24/2022 11:19 PM 09/25/2022 3:46 PM Date Activated Date Inactivated Comments 12/06/2023 6:52 AM 12/06/2023 12:44 PM Date Activated Date Inactivated Comments 09/24/2022 11:19 PM 09/25/2022 3:46 PM Date Activated Date Inactivated Comments 02/19/2025 11:58 AM 02/19/2025 6:18 PM Date Activated Date Inactivated Comments 12/06/2023 6:52 AM 12/06/2023 12:44 PM Date Activated Date Inactivated Comments 09/24/2022 11:19 PM 09/25/2022 3:46 PM Date Activated Date Inactivated Comments 02/19/2025 11:58 AM 02/19/2025 6:18 PM Date Activated Date Inactivated Comments 12/06/2023 6:52 AM 12/06/2023 12:44 PM Date Activated Date Inactivated Comments 09/24/2022 11:19 PM 09/25/2022 3:46 PM Advance Directive Response Recorded Date/ Time Living Will No December 28 5:54pm Do you have a Healthcare Power of Rd Manager? No December 28, 2024 5:54pm Advance Directives Yes June 10 8:18am Summary Purpose Family History No Family History Records Found Relationship Condition Age at Onset Recorded Date/T constance father Cardiac disease Unknown brother Cardiac disease Unknown Chief Complaint and Reason for Visit Chief Complaint 6 M FU R TOTAL KNEE Reason for Visit Essential hypertensi on Family history of coronary artery disease Mixed hyperlipidemia Palpitations Preoperative cardiovascular examination Valvular heart disease Anxiety Debility Hypothyroidism Status post total right knee replacement Hypertension Chief Complaint Admit Date [facility] WORK December 03, 2024 5:00am [facility] December 10, 2024 10:30am LABWORK December 14, 2024 5 :00am fall, head injury December 28, 2024 2 :36pm [facility] February 04, 2025 5 :00am [facility] February 25, 2025 4 :00am Reason for Referral Specialty Diagnoses / Procedures Referred By Contac t Referred To Contact Radiology Diagnoses Right kidney stone UPJ obstruction, acquired Procedures CT abdomen pelvis wo IV contrast Sarath Ramos MD [address] [place] [address] Referral ID Status Reason Start Date Expiration Date V isits Requested Visits Authorized [id number] Pending Review 02/14/2024 02/13/2025 1 1 Specialty Diagnoses / Procedures Referred By Contac t Referred To Contact Radiology Diagnoses UPJ obstruction, acquired Procedures NM kidney flow/function w/wo lasix Sarath Ramos MD [address] [place] [id number] Referral ID Status Reason Start Date Expiration Date V isits Requested Visits Authorized [id number] Authorized 01/06/2024 01/05/2025 3 3 Specialty Diagnoses / Procedures Referred By Contac t Referred To Contact Abelardo Fritz MD [address] [place] [address] Referral ID Status Reason Start Date Expiration Date V isits Requested Visits Authorized [id number] Pending Review 1 1 Specialty Diagnoses / Procedures Referred By Contac t Referred To Contact Melody Vega MD [address] [place] [address] Referral ID Status Reason Start Date Expiration Date V isits Requested Visits Authorized [id number] Pending Review 1 1 Additional Source Comments Ordered Prescriptions (unrec ognized section and content) Prescription Sig Dispensed Refills Start Date End Da te oxyCODONE-acetaminophen (PERCOCET) 5-325 MG per tabletIndications:Renal calculus, right Take 1 tablet by mouth every 6 hours as needed for Pain for up to 2 days. Intended supply: 3 days. Take lowest dose possible to manage pain 8 tablet 0 03/14/2022 03/16/2022 tamsulosin (FLOMAX) 0.4 MG capsule Take 1 capsule by mouth daily for 14 days 14 capsule 0 03/14/2022 03/28/2022 Scheduled Active and Recently Administ ered Medications (unrecognized section and content) Medication Order 03/12/2022 03/13/2022 03/14/2022 acetaminophen (TYLENOL) tablet 1,000 mg (COMPLETED) 1,000 mg, Oral, ONCE, 1 dose, On Tue03/12/22 at 0900, Maximum dose of acetaminophen is 4000 mg from all sources in 24 hours. Do not administer if patient has taken tylenol <4 hours earlier. Do not give if contraindicated ie. patient has active liver disease or cirrhosis., Pre-op (day of surgery) 0906 (Given - Provider: Odalis Butler RN) acetaminophen (TYLENOL) tablet 1,000 mg 1,000 mg, Oral, EVERY 6 HOURS, First dose on Tue03/12/22 at 1730, Until Discontinued, Maximum dose of acetaminophen is 4000 mg from all sources in 24 hours., Post-op 1736 (Given - Provider: Chad Fang RN) 0313 (Not Given - Provider: Paige Avendano RN - Reason: Patient/family refused)0609 (Given - Provider: Paige Avendano RN)1111 (Given - Provider: Kiara Zee, FILIBERTO)1741 (Given - Provider: Kiara Zee RN) 0033 (Not Given - Provider: Paige Avendano RN - Reason: Patient/family refused)0541 (Given - Provider: Paige Avendano RN)1302 (Given - Provider: Kiara Zee RN)1730 (Due)2330 (Due) amLODIPine (NORVASC) tablet 2.5 mg 2.5 mg, Oral, DAILY, First dose on Tue03/12/22 at 1730, Until Discontinued 173 (Given - Provider: Chad Fang RN) 0943 (Given - Provider: Kiara Zee RN) 0843 (Given - Provider: Kiara Zee RN) atenolol (TENORMIN) tablet 25 mg 25 mg, Oral, DAILY, First dose on Tue03/12/22 at 1730, Until Discontinued 2132 (Given - Provider: Paige Avendano RN) 1108 (Given - Provider: Kiara Zee RN) 0845 (Given - Provider: Kiara Zee RN) ceFAZolin (ANCEF) 2000 mg in dextrose 4 % 100 mL IVPB (premix) (COMPLETED) 2,000 mg, IntraVENous, ONCE, 1 dose, On Tue03/12/22 at 0900, Antimicrobial Indications: Surgical Prophylaxis, prior to procedure, Pre-op (day of surgery) 1422 (Given by Other Clinician - Provider: Adilson Montanez RN) ceFAZolin (ANCEF) 2000 mg in dextrose 4 % 100 mL IVPB (premix) (COMPLETED) 2,000 mg, IntraVENous, SOFTWARE PROGRAM MANAGER TO O.R., 1 dose, On Tue03/12/22 at 0900, Antimicrobial Indications: Surgical Prophylaxis, Administer within 1 hour prior to incision. Repeat in 2 hours after initial dose if still intra-op., Pre-op (day of surgery) 1030 (Given by Other Clinician - Provider: Priscila Alvares RN) ceFAZolin (ANCEF) 2000 mg in dextrose 4 % 100 mL IVPB (premix) (COMPLETED) 2,000 mg, IntraVENous, EVERY 8 HOURS, 3 doses, First dose on Tue03/12/22 at 2200, Last dose on Tue03/13/22 at 1400, Antimicrobial Indications: Surgical Prophylaxis 2132 (New Bag - Provider: Paige Avendano RN)220 (Stopped - Provider: Paige Avendano RN) 0609 (New Bag - Provider: Paige Avendano RN)0640 (Stopped - Provider: Paige Avendano RN)1345 (New Bag - Provider: Kiara Zee RN)1415 (Stopped - Provider: Kiara Zee RN) enoxaparin (LOVENOX) injection 40 mg 40 mg, SubCUTAneous, DAILY, First dose on 03/13/22 at 0900, Until Discontinued, Post-op 0941 (Given - Provider: Kiara Zee RN) 0850 (Given - Provider: Kiara Zee RN) famotidine (PEPCID) tablet 20 mg (COMPLETED) 20 mg, Oral, ONCE, 1 dose, On Tue03/12/22 at 0900, Pre-op (day of surgery) 09 (Given - Provider: Odalis Butler RN) levothyroxine (SYNTHROID) tablet 112 mcg 112 mcg, Oral, DAILY, First dose on 03/13/22 at 0700, Until Discontinued, Tube feeding (TF) interaction, obtain physician order to manage, recommend holding TF for 30 minutes before and after dose. 0609 (Given - Provider: Paige Avendano RN) 0541 (Given - Provider: Paige Avendano RN) LORazepam (ATIVAN) tablet 0.5 mg 0.5 mg, Oral, 2 TIMES DAILY, First dose on Tue03/12/22 at 2100, Until Discontinued 2132 (Given - Provider: Paige Avendano RN) 0943 (Given - Provider: Kiara Zee RN)2001 (Given - Provider: Paige Avendano RN) 0843 (Given - Provider: Kiara Zee RN)2099 (Due) losartan (COZAAR) tablet 50 mg 50 mg, Oral, DAILY, First dose on Tue03/12/22 at 1730, Until Discontinued 1736 (Given - Provider: Chad Fang RN) 0943 (Given - Provider: Kiara Zee RN) 0843 (Given - Provider: Kiara Zee RN) pantoprazole (PROTONIX) tablet 40 mg 40 mg, Oral, DAILY, First dose on Tue03/12/22 at 1730, Until Discontinued, Do not crush or break. 173 (Given - Provider: Chad Fang RN) 0943 (Given - Provider: Kiara Zee RN) 0848 (Given - Provider: Kiara Zee RN) potassium chloride (KLOR-CON M) extended release tablet 40 mEq (COMPLETED) 40 mEq, Oral, ONCE, 1 dose, On 03/14/22 at 0630, Do not crush, chew, or suck on tablet. Tablet may also be broken in half and each half swallowed separately. 0633 (Given - Provider: Paige Avendano RN) potassium chloride (KLOR-CON M) extended release tablet 40 mEq (COMPLETED) 40 mEq, Oral, ONCE, 1 dose, On Tue03/14/22 at 1300, Do not crush, chew, or suck on tablet. Tablet may also be broken in half and each half swallowed separately. 1302 (Given - Provider: Kiara Zee RN) potassium chloride 10 mEq/100 mL IVPB (Peripheral Line) (CANCELED) 10 mEq, IntraVENous, EVERY HOUR, 4 doses, First dose on Tue03/14/22 at 0700, Last dose on Tue03/14/22 at 1000, at 100 mL/hr 0735 (New Bag - Provider: Kiara Zee RN) sodium chloride flush 0.9 % injection 5-40 mL 5-40 mL, IntraVENous, EVERY 12 HOURS SCHEDULED (2 times per day), First dose on Tue03/12/22 at 2100, Until Discontinued, For Line Patency: Peripheral IV = 5 mL; Midline or Central Line = 10 mL/lumen. If following IV push medication, administer flush at same rate as the IV push. Flush volume is determined by type of infusion therapy being given. For non-viscous solutions use: Peripheral IV = 5 mL Midline or Central Line = 10 mL/lumen For viscous solutions (i.e. blood components, parenteral nutrition, contrast media, or after obtaining blood sample) use: Peripheral IV = 10 mL Midline or Central Line = 20 mL/lumen, Post-op 2133 (Given - Provider: Paige Avendano RN) 0937 (Not Given - Provider: Kiara Zee RN - Reason: IV Fluid Infusing)2002 (Given - Provider: Paige Avendano RN) 0851 (Given - Provider: Kiara Zee RN)2100 (Due) tamsulosin (FLOMAX) capsule 0.4 mg 0.4 mg, Oral, DAILY, First dose on Tue03/12/22 at 1730, Until Discontinued, Do not crush or break., Post-op 1737 (Given - Provider: Chad Fang RN) 0943 (Given - Provider: Kiara Zee, FILIBERTO) 0854 (Given - Provider: Kiara Zee, RN) Continuous Medication Order 03/12/2022 03/13/2022 03/14/2022 0.9 % sodium chloride infusion (CANCELED) IntraVENous, at 75 mL/hr, CONTINUOUS, Starting on Tue03/12/22 at 1730, Post-op 1850 (New Bag - Provider: Chad Fang RN) lactated ringers infusion (CANCELED) IntraVENous, at 50 mL/hr, CONTINUOUS, Starting on Tue03/12/22 at 0900, Upon admission to sameday - please start iv if patient does not have iv access. Use 500ml NS for patients on dialysis., Pre-op (day of surgery) 09 (New Bag - Provider: Odalis Butler RN) PRN Medication Order 03/12/2022 03/13/2022 03/14/2022 0.9 % sodium chloride infusion 25 mL, IntraVENous, at 100 mL/hr, PRN, If patient receiving piggyback infusions without ordered maintenance IV fluids or with frequent/long duration piggyback infusions, Starting on Tue03/12/22 at 1706, Administer at the same rate as the piggyback being infused., Post-op ALPRAZolam (NIRAVAM) dissolvable tablet 0.25 mg (CANCELED) 0.25 mg, Oral, PRN, Starting on Tue03/12/22 at 0839, Until Tue03/12/22 at 1659, Anxiety, Pre-op (day of surgery) 09 (Given - Provider: Odalis Butler, FILIBERTO) HYDROmorphone (DILAUDID) injection 0.5 mg (COMPLETED) HYDROmorphone (DILAUDID) 1.5mg IV is equivalent to morphine 10mg IV, 0.5 mg, IntraVENous, EVERY 10 MIN PRN, 2 doses, Starting on Tue03/12/22 at 1203, Until Discontinued, Pain Severe (7-10), Phase I - Initial therapy for moderate pain. Restricted to a 50 minute time frame starting when the patient can verbally state their pain score., PACU only 1227 (Given - Provider: Meghan Leavitt RN)1652 (Given - Provider: Adilson Montanez, FILIBERTO) ibuprofen (ADVIL;MOTRIN) tablet 400 mg 400 mg, Oral, EVERY 6 HOURS PRN, Starting on Tue03/12/22 at 1706, Until Discontinued, Pain Mild (1-3), Do not crush or chew. 1341 (Given - Provider: Kiara Zee RN)2001 (Given - Provider: Paige Avendano RN) 0843 (Given - Provider: Kiara Zee RN) iopamidol (ISOVUE-300) 61 % injection 50 mL (COMPLETED) 50 mL, Other, IMG ONCE PRN, 1 dose, Starting on Tue03/12/22 at 1429, Until Tue03/12/22 at 1430, Other, contrast given to surgeon to be used intraoperatively, Intra-op 1430 (Given - Provider: Imani Pemberton) lidocaine PF 1 % injection (COMPLETED) ONCE PRN, 1 dose, Starting on Tue03/12/22 at 1049, Until Tue03/12/22 at 1049 1049 (Given - Provider: Elie Villanueva MD) morphine sulfate (PF) injection 2 mg(Linked Group 1) 2 mg, IntraVENous, EVERY 2 HOURS PRN, Starting on Tue03/12/22 at 1706, Until Discontinued, Pain Moderate (4-6), If oral and IV narcotics ordered, use oral first and only use IV if oral is ineffective or cannot take oral. Do Not give oral and IV within 1 hour of each other unless specifically ordered., Post-op 09 (See Alternative - Provider: Kiara Zee RN) morphine sulfate (PF) injection 4 mg(Linked Group 1) 4 mg, IntraVENous, EVERY 2 HOURS PRN, Starting on Tue03/12/22 at 1706, Until Discontinued, Pain Severe (7-10), If oral and IV narcotics ordered, use oral first and only use IV if oral is ineffective or cannot take oral. Do Not give oral and IV within 1 hour of each other unless specifically ordered., Post-op 902 (Given - Provider: Kiara Zee RN) ondansetron (ZOFRAN) injection 4 mg(Linked Group 2) 4 mg, IntraVENous, EVERY 6 HOURS PRN, Starting on Tue03/12/22 at 1706, Until Discontinued, Nausea, Vomiting, Administer if oral route cannot be used., Post-op 0858 (Given - Provider: Kiara Zee RN) ondansetron (ZOFRAN-ODT) disintegrating tablet 4 mg(Linked Group 2) 4 mg, Oral, EVERY 8 HOURS PRN, Starting on Tue03/12/22 at 1706, Until Discontinued, Nausea, Vomiting, Post-op 0858 (See Alternative - Provider: Kiara Zee RN) oxyCODONE (ROXICODONE) immediate release tablet 10 mg(Linked Group 3) 10 mg, Oral, EVERY 4 HOURS PRN, Starting on Tue03/12/22 at 1706, Until Discontinued, Pain Severe (7-10), Post-op 173 (Given - Provider: Chad Fang RN) 0613 (See Alternative - Provider: Paige Avendano, FILIBERTO) oxyCODONE (ROXICODONE) immediate release tablet 5 mg(Linked Group 3) 5 mg, Oral, EVERY 4 HOURS PRN, Starting on Tue03/12/22 at 1706, Until Discontinued, Pain Moderate (4-6), Post-op 1736 (See Alternative - Provider: Chad Fang RN) 0613 (Given - Provider: Paige Avendano, FILIBERTO) polyethylene glycol (GLYCOLAX) packet 17 g 17 g, Oral, DAILY PRN, Starting on Tue03/12/22 at 1706, Until Discontinued, Constipation, First line therapy for constipation, Post-op sodium chloride flush 0.9 % injection 5-40 mL 5-40 mL, IntraVENous, PRN, Starting on Tue03/12/22 at 1706, Until Discontinued, Line Care, After every IV line use, Post-op Linked Groups Order Group 1: morphine sulfate (PF) injection 2 mgJump to med 2 mg, IntraVENous, EVERY 2 HOURS PRN, Starting on Tue03/12/22 at 1706, Until Discontinued, Pain Moderate (4-6)
If oral and IV narcotics ordered, use oral first and only use IV if oral is ineffective or cannot take oral. Do Not give oral and IV within 1 hour of each other unless specifically ordered.
Post-op Or morphine sulfate (PF) injection 4 mgJump to med 4 mg, IntraVENous, EVERY 2 HOURS PRN, Starting on Tue03/12/22 at 1706, Until Discontinued, Pain Severe (7-10)
If oral and IV narcotics ordered, use oral first and only use IV if oral is ineffective or cannot take oral. Do Not give oral and IV within 1 hour of each other unless specifically ordered.
Post-op Group 2: ondansetron (ZOFRAN-ODT) disintegrating tablet 4 mgJump to med 4 mg, Oral, EVERY 8 HOURS PRN, Starting on Tue03/12/22 at 1706, Until Discontinued, Nausea, Vomiting, Post-op Or ondansetron (ZOFRAN) injection 4 mgJump to med 4 mg, IntraVENous, EVERY 6 HOURS PRN, Starting on Tue03/12/22 at 1706, Until Discontinued, Nausea, Vomiting
Administer if oral route cannot be used.
Post-op Group 3: oxyCODONE (ROXICODONE) immediate release tablet 5 mgJump to med 5 mg, Oral, EVERY 4 HOURS PRN, Starting on Tue03/12/22 at 1706, Until Discontinued, Pain Moderate (4-6), Post-op Or oxyCODONE (ROXICODONE) immediate release tablet 10 mgJump to med 10 mg, Oral, EVERY 4 HOURS PRN, Starting on Tue03/12/22 at 1706, Until Discontinued, Pain Severe (7-10), Post-op Scheduled Medication Order 12/04/2023 12/05/2023 12/06/2023 acetaminophen (Tylenol) tablet 1,000 mg (COMPLETED) 1,000 mg, Oral, Once, On Tue12/06/23 at 0700, For 1 dose, Preprocedure, Maximum dose of acetaminophen is 4000 mg from all sources in 24 hours. Do not administer if patient has taken tylenol <4 hours earlier. Do not give if contraindicated ie. patient has active liver disease or cirrhosis. 07 (Given - Provid er: El Medel RN) ceFAZolin in dextrose 4% (Ancef) IVPB 2,000 mg (COMPLETED) 2,000 mg, IntraVENous, Administer over 30 Minutes, Once, On Tue12/06/23 at 0700, For 1 dose, Preprocedure, Administer 60 minutes prior to surgery. premix bag, Suspected Indication (Select all that apply): Surgical Prophylaxis 0858 (Given - Provid er: Brandon Hope CRNA)0937 (Anesthesia Volume Adjustment - Provider: Brandon Hope CRNA) famotidine (Pepcid) tablet 20 mg (COMPLETED) 20 mg, Oral, Once, On Tue12/06/23 at 0700, For 1 dose, Preprocedure 0711 (Given - Provid er: El Medel RN) sodium chloride 0.9% (NS) flush 10 mL 10 mL, IntraVENous, Every 12 hours scheduled (2 times per day), First dose on Tue12/06/23 at 0900, Preprocedure 0900 (Canceled Entry - Provider: Automatic Discharge Provider - Comment: Automatically canceled at discontinue of medication order) sodium chloride 0.9% (NS) flush 5-40 mL 5-40 mL, IntraVENous, Every 12 hours, First dose on Tue12/06/23 at 0700, Preprocedure, For Line Patency: Peripheral IV = 5 mL; Midline or Central Line = 10 mL/lumen. If following IV push medication, administer flush at same rate as the IV push. Flush volume is determined by type of infusion therapy being given. For non-viscous solutions use: Peripheral IV = 5 mL Midline or Central Line = 10 mL/lumen For viscous solutions (i.e. blood components, parenteral nutrition, contrast media, or after obtaining blood sample) use: Peripheral IV = 10 mL Midline or Central Line = 20 mL/lumen 0700 (Canceled Entry - Provider: Automatic Discharge Provider - Comment: Automatically canceled at discontinue of medication order) Continuous Medication Order 12/04/2023 12/05/2023 12/06/2023 lactated Ringer's (LR) infusion 50 mL/hr, IntraVENous, Continuous, Starting on Tue12/06/23 at 0700, Preprocedure, Upon admission to sameday - please start iv if patient does not have iv access. Use 500ml NS for patients on dialysis. 0710 (New Bag - Prov ider: El Medel RN)0844 (Continued by Anesthesia - Provider: Brandon Hope CRNA)0937 (Stopped - Provider: Brandon Hope CRNA) PRN Medication Order 12/04/2023 12/05/2023 12/06/2023 ALPRAZolam (Xanax) disintegrating tablet 0.25 mg 0.25 mg, Oral, PRN, anxiety, Starting on Tue12/06/23 at 0652, For 1 dose, Preprocedure, Using dry hands, place tablet on top of tongue and allow to disintegrate. Administration with water is not necessary. sodium chloride 0.9 % infusion 5-250 mL/hr, IntraVENous, PRN, if patient receiving piggyback infusions and maintenance fluids are not ordered OR KVO fluids to protect IV site / prevent frequent line interruptions/ long duration, Starting on Tue12/06/23 at 0652, Preprocedure, For piggyback infusion, administer at same rate as piggyback for a total of 25 mL. Enter 25 mL into dose field and piggyback rate into rate field of order. If piggyback is infusing at a rate less than 100 mL/hr, enter 25 mL into dose field and 100 mL/hr into rate field of order. For KVO fluids, enter rate of 20 mL/hr or less into rate field of order. sodium chloride 0.9 % infusion 5-250 mL/hr, IntraVENous, PRN, if patient receiving piggyback infusions and maintenance fluids are not ordered OR KVO fluids to protect IV site / prevent frequent line interruptions / long duration, Starting on Tue12/06/23 at 0652, Preprocedure, For piggyback infusion, administer at same rate as piggyback for a total of 25 mL. Enter 25 mL into dose field and piggyback rate into rate field of order. If piggyback is infusing at a rate less than 100 mL/hr, enter 25 mL into dose field and 100 mL/hr into rate field of order. For KVO fluids, enter rate of 20 mL/hr or less into rate field of order. sodium chloride 0.9 % irrigation solution (CANCELED) As needed, Starting on Tue12/06/23 at 0903, Intraprocedure 0903 (Given - Provid er: Sarath Ramos MD) sodium chloride 0.9% (NS) flush 10 mL 10 mL, IntraVENous, PRN, line care, Starting on Tue12/06/23 at 0652, Preprocedure, After every IV line use sodium chloride 0.9% (NS) flush 5-40 mL 5-40 mL, IntraVENous, PRN, line care, After every IV line use, Starting on Tue12/06/23 at 0652, Preprocedure, For Line Patency: Peripheral IV = 5 mL; Midline or Central Line = 10 mL/lumen. If following IV push medication, administer flush at same rate as the IV push. Flush volume is determined by type of infusion therapy being given. For non-viscous solutions use: Peripheral IV = 5 mL Midline or Central Line = 10 mL/lumen For viscous solutions (i.e. blood components, parenteral nutrition, contrast media, or after obtaining blood sample) use: Peripheral IV = 10 mL Midline or Central Line = 20 mL/lumen sterile water irrigation solution (CANCELED) As needed, Starting on Tue12/06/23 at 0903, Intraprocedure 0903 (Given - Provid er: Sarath Ramos MD) Scheduled Medication Order 01/04/2024 01/05/2024 01/06/2024 acetaminophen (Tylenol) tablet 1,000 mg (COMPLETED) 1,000 mg, Oral, Once, On Tue01/06/24 at 0545, For 1 dose, Preprocedure, Maximum dose of acetaminophen is 4000 mg from all sources in 24 hours. Do not administer if patient has taken tylenol <4 hours earlier. Do not give if contraindicated ie. patient has active liver disease or cirrhosis. 0555 (Given - Provid er: Aamir Maxwell RN) ceFAZolin in dextrose 4% (Ancef) IVPB 2,000 mg (COMPLETED) 2,000 mg, IntraVENous, Administer over 30 Minutes, Once, On Tue01/06/24 at 0545, For 1 dose, Preprocedure, Administer 60 minutes prior to surgery. premix bag, Suspected Indication (Select all that apply): Surgical Prophylaxis 0750 (Given - Provid er: Mira Tobin APRN - RUG BACKING STENCILER - Comment: pso) famotidine (Pepcid) tablet 20 mg (COMPLETED) 20 mg, Oral, Once, On Tue01/06/24 at 0545, For 1 dose, Preprocedure 0555 (Given - Provid er: Aamir Maxwell RN) sodium chloride 0.9% (NS) flush 10 mL 10 mL, IntraVENous, Every 12 hours scheduled (2 times per day), First dose on Tue01/06/24 at 0900, Preprocedure 0900 (Canceled Entry - Provider: Automatic Discharge Provider - Comment: Automatically canceled at discontinue of medication order) sodium chloride 0.9% (NS) flush 10 mL 10 mL, IntraVENous, Every 12 hours scheduled (2 times per day), First dose on Tue01/06/24 at 0900, Recovery (only) 0900 (Canceled Entry - Provider: Automatic Discharge Provider - Comment: Automatically canceled at discontinue of medication order) sodium chloride 0.9% (NS) flush 5-40 mL 5-40 mL, IntraVENous, Every 12 hours, First dose on Tue01/06/24 at 0545, Preprocedure, For Line Patency: Peripheral IV = 5 mL; Midline or Central Line = 10 mL/lumen. If following IV push medication, administer flush at same rate as the IV push. Flush volume is determined by type of infusion therapy being given. For non-viscous solutions use: Peripheral IV = 5 mL Midline or Central Line = 10 mL/lumen For viscous solutions (i.e. blood components, parenteral nutrition, contrast media, or after obtaining blood sample) use: Peripheral IV = 10 mL Midline or Central Line = 20 mL/lumen 0545 (Canceled Entry - Provider: Automatic Discharge Provider - Comment: Automatically canceled at discontinue of medication order) Continuous Medication Order 01/04/2024 01/05/2024 01/06/2024 lactated Ringer's (LR) infusion 50 mL/hr, IntraVENous, Continuous, Starting on Tue01/06/24 at 0545, Preprocedure, Upon admission to sameday - please start iv if patient does not have iv access. Use 500ml NS for patients on dialysis. 0555 (New Bag - Prov ider: Aamir Maxwell RN)0740 (Paused - Provider: ALONDRA Simon CRNA - Comment: Switch to gravity)0741 (Restarted - Provider: ALONDRA Simon CRNA)0825 (Anesthesia Volume Adjustment - Provider: ALONDRA Simon CRNA) lactated ringers infusion 125 mL/hr, IntraVENous, Continuous, Starting on Tue01/06/24 at 0845, Recovery (only) 0845 (Canceled Entry - Provider: Automatic Discharge Provider - Comment: Automatically canceled at discontinue of medication order) PRN Medication Order 01/04/2024 01/05/2024 01/06/2024 ALPRAZolam (Xanax) disintegrating tablet 0.25 mg 0.25 mg, Oral, PRN, anxiety, Starting on Tue01/06/24 at 0543, For 1 dose, Preprocedure, Using dry hands, place tablet on top of tongue and allow to disintegrate. Administration with water is not necessary. diphenhydrAMINE (BENADryl) injection 12.5 mg 12.5 mg, IntraVENous, Once PRN, itching, Starting on Tue01/06/24 at 0842, For 1 dose, Recovery (only) fentaNYL (Sublimaze) injection 25 mcg 25 mcg, IntraVENous, Every 5 min PRN, moderate pain (4-6), Starting on Tue01/06/24 at 0842, For 3 doses, Recovery (only), Phase I and Phase II- Initial therapy for moderate pain (4-6). Restricted to a 90 minute time frame starting when the patient can verbally state their pain score. If after 2 doses the pain score does not decrease by more than one point, then call the provider. If oral meds are utilized, do not return to initial therapy medications. fentaNYL (Sublimaze) injection 50 mcg 50 mcg, IntraVENous, Every 5 min PRN, severe pain (7-10), Starting on Tue01/06/24 at 0842, For 3 doses, Recovery (only), Phase I and Phase II- Initial therapy for severe pain (7-10). Restricted to a 90 minute time frame starting when the patient can verbally state their pain score. If after 2 doses the pain score does not decrease by more than one point, then call the provider. If oral meds are utilized, do not return to initial therapy medications. hydrALAZINE (Apresoline) injection 5 mg(Linked Group 1) 5 mg, IntraVENous, Every 15 min PRN, high blood pressure, for SBP greater than 160 mmHg for 2 consecutive measurements taken from different sites, Starting on Tue01/06/24 at 0842, For 2 doses, Recovery (only), PRN for SBP > 160 for 2 consecutive measurements, and if one of the following conditions is met: 1) If IV labetolol is ineffective. 2) If HR is under 60. 3) If patient has heart block, COPD or asthma. If both labetalol and hydralazine ineffective, notify anesthesia provider. iopamidol (Isovue-300) 61 % injection (CANCELED) As needed, Starting on Tue01/06/24 at 0757, Intraprocedure 0757 (Given - Provid er: Sarath Ramos MD - Comment: BBLADDER/URETERS) labetalol (Normodyne,Trandate) injection 5 mg(Linked Group 1) 5 mg, IntraVENous, Every 10 min PRN, high blood pressure, for SBP greater than 160 mmHg for 2 consecutive measurements taken from different sites., Starting on Tue01/06/24 at 0842, For 2 doses, Recovery (only), PRN for SBP >160 for 2 consecutive measurements, if HR is 60 or greater. If beta alyce is contraindicated (HR less than 60, heart block, COPD or asthma) use hydralazine IV order. meperidine (Demerol) injection 12.5 mg 12.5 mg, IntraVENous, Every 5 min PRN, shivering, Starting on Tue01/06/24 at 0842, For 4 doses, Recovery (only), May give every 5 minutes to max of 50mg. ondansetron (Zofran) injection 4 mg 4 mg, IntraVENous, Once PRN, nausea, Starting on Tue01/06/24 at 0842, For 1 dose, Recovery (only), Initial antiemetic therapy. oxyCODONE (Roxicodone) immediate release tablet 10 mg(Linked Group 2) 10 mg, Oral, PRN, severe pain (7-10), Starting on Tue01/06/24 at 0842, For 1 dose, Recovery (only), PHASE II oxyCODONE (Roxicodone) immediate release tablet 5 mg(Linked Group 2) 5 mg, Oral, PRN, moderate pain (4-6), Starting on Tue01/06/24 at 0842, For 1 dose, Recovery (only), PHASE II sodium chloride 0.9 % bolus 500 mL 500 mL, IntraVENous, at 1,000 mL/hr, Administer over 0.5 Hours, PRN, Anti-nausea, Starting on Tue01/06/24 at 0842, Recovery (only), Indications: Anti-nausea sodium chloride 0.9 % infusion 5-250 mL/hr, IntraVENous, PRN, if patient receiving piggyback infusions and maintenance fluids are not ordered OR KVO fluids to protect IV site / prevent frequent line interruptions / long duration, Starting on Tue01/06/24 at 0543, Preprocedure, For piggyback infusion, administer at same rate as piggyback for a total of 25 mL. Enter 25 mL into dose field and piggyback rate into rate field of order. If piggyback is infusing at a rate less than 100 mL/hr, enter 25 mL into dose field and 100 mL/hr into rate field of order. For KVO fluids, enter rate of 20 mL/hr or less into rate field of order. sodium chloride 0.9 % infusion 5-250 mL/hr, IntraVENous, PRN, if patient receiving piggyback infusions and maintenance fluids are not ordered OR KVO fluids to protect IV site / prevent frequent line interruptions/ long duration, Starting on Tue01/06/24 at 0543, Preprocedure, For piggyback infusion, administer at same rate as piggyback for a total of 25 mL. Enter 25 mL into dose field and piggyback rate into rate field of order. If piggyback is infusing at a rate less than 100 mL/hr, enter 25 mL into dose field and 100 mL/hr into rate field of order. For KVO fluids, enter rate of 20 mL/hr or less into rate field of order. sodium chloride 0.9 % infusion 5-250 mL/hr, IntraVENous, PRN, if patient receiving piggyback infusions and maintenance fluids are not ordered OR KVO fluids to protect IV site / prevent frequent line interruptions/ long duration, Starting on Tue01/06/24 at 0842, Recovery (only), For piggyback infusion, administer at same rate as piggyback for a total of 25 mL. Enter 25 mL into dose field and piggyback rate into rate field of order. If piggyback is infusing at a rate less than 100 mL/hr, enter 25 mL into dose field and 100 mL/hr into rate field of order. For KVO fluids, enter rate of 20 mL/hr or less into rate field of order. sodium chloride 0.9 % irrigation solution (CANCELED) As needed, Starting on Tue01/06/24 at 0734, Intraprocedure 0734 (Given - Provid er: Sarath Ramos MD) sodium chloride 0.9% (NS) flush 10 mL 10 mL, IntraVENous, PRN, line care, Starting on Tue01/06/24 at 0543, Preprocedure, After every IV line use sodium chloride 0.9% (NS) flush 10 mL 10 mL, IntraVENous, PRN, line care, Starting on Tue01/06/24 at 0842, Recovery (only), After every IV line use sodium chloride 0.9% (NS) flush 5-40 mL 5-40 mL, IntraVENous, PRN, line care, After every IV line use, Starting on Tue01/06/24 at 0543, Preprocedure, For Line Patency: Peripheral IV = 5 mL; Midline or Central Line = 10 mL/lumen. If following IV push medication, administer flush at same rate as the IV push. Flush volume is determined by type of infusion therapy being given. For non-viscous solutions use: Peripheral IV = 5 mL Midline or Central Line = 10 mL/lumen For viscous solutions (i.e. blood components, parenteral nutrition, contrast media, or after obtaining blood sample) use: Peripheral IV = 10 mL Midline or Central Line = 20 mL/lumen sterile water irrigation solution (CANCELED) As needed, Starting on Tue01/06/24 at 0734, Intraprocedure 0734 (Given - Provid er: Sarath Ramos MD) Linked Groups Order Group 1: labetalol (Normodyne,Trandate) injection 5 mgJump to med 5 mg, IntraVENous, Every 10 min PRN, high blood pressure, for SBP greater than 160 mmHg for 2 consecutive measurements taken from different sites., Starting on Tue01/06/24 at 0842, For 2 doses, Recovery (only), PRN for SBP >160 for 2 consecutive measurements, if HR is 60 or greater. If beta alyce is contraindicated (HR less than 60, heart block, COPD or asthma) use hydralazine IV order. Or hydrALAZINE (Apresoline) injection 5 mgJump to med 5 mg, IntraVENous, Every 15 min PRN, high blood pressure, for SBP greater than 160 mmHg for 2 consecutive measurements taken from different sites, Starting on Tue01/06/24 at 0842, For 2 doses, Recovery (only), PRN for SBP > 160 for 2 consecutive measurements, and if one of the following conditions is met: 1) If IV labetolol is ineffective. 2) If HR is under 60. 3) If patient has heart block, COPD or asthma. If both labetalol and hydralazine ineffective, notify anesthesia provider. Group 2: oxyCODONE (Roxicodone) immediate release tablet 5 mgJump to med 5 mg, Oral, PRN, moderate pain (4-6), Starting on Tue01/06/24 at 0842, For 1 dose, Recovery (only), PHASE II Or oxyCODONE (Roxicodone) immediate release tablet 10 mgJump to med 10 mg, Oral, PRN, severe pain (7-10), Starting on Tue01/06/24 at 0842, For 1 dose, Recovery (only), PHASE II Scheduled Medication Order 02/17/2025 02/18/2025 02/19/2025 acetaminophen (Tylenol) tablet 500 mg (COMPLETED) 500 mg, Oral, Once, On Tue02/19/25 at 1230, For 1 dose, Preprocedure, Maximum dose of acetaminophen is 4000 mg from all sources in 24 hours. Do not administer if patient has taken tylenol <6 hours earlier. Do not give if contraindicated ie. patient has active liver disease or cirrhosis. 1236 (Given - Provid er: Elba Ibanez RN) ceFAZolin in dextrose 4% (Ancef) IVPB 2,000 mg (COMPLETED) 2,000 mg, IntraVENous, Administer over 30 Minutes, Once, On Tue02/19/25 at 1200, For 1 dose, Preprocedure, Administer 60 minutes prior to surgery. premix bag, Suspected Indication (Select all that apply): Surgical Prophylaxis 1433 (Given - Provid er: Monica Briones, MICROBIOLOGY INSTRUCTOR - RUG BACKING STENCILER) famotidine (Pepcid) tablet 20 mg (COMPLETED)(Linked Group 1) 20 mg, Oral, Once, On Tue02/19/25 at 1200, For 1 dose, Preprocedure, IV or Oral 1236 (Given - Provid er: Elba Ibanez RN) sodium chloride 0.9% (NS) flush 10 mL 10 mL, IntraVENous, Every 12 hours scheduled (2 times per day), First dose on Tue02/19/25 at 2100, Preprocedure sodium chloride 0.9% (NS) flush 10 mL 10 mL, IntraVENous, Every 12 hours scheduled (2 times per day), First dose on Tue02/19/25 at 2100, Recovery (only) sodium chloride 0.9% (NS) flush 5-40 mL 5-40 mL, IntraVENous, Every 12 hours, First dose on Tue02/19/25 at 1200, Preprocedure, For Line Patency: Peripheral IV = 5 mL; Midline or Central Line = 10 mL/lumen. If following IV push medication, administer flush at same rate as the IV push. Flush volume is determined by type of infusion therapy being given. For non-viscous solutions use: Peripheral IV = 5 mL Midline or Central Line = 10 mL/lumen For viscous solutions (i.e. blood components, parenteral nutrition, contrast media, or after obtaining blood sample) use: Peripheral IV = 10 mL Midline or Central Line = 20 mL/lumen 1200 (Canceled Entry - Provider: Automatic Discharge Provider - Comment: Automatically canceled at discontinue of medication order) Continuous Medication Order 02/17/2025 02/18/2025 02/19/2025 lactated Ringer's (LR) infusion 50 mL/hr, IntraVENous, Continuous, Starting on Tue02/19/25 at 1200, Preprocedure, Upon admission to sameday - please start iv if patient does not have iv access. Use 500ml NS for patients on dialysis. 1426 (New Bag - Prov ider: ALONDRA Ballard RUG BACKING STENCILER)1505 (Anesthesia Volume Adjustment - Provider: ALONDRA Bryant CRNA) lactated ringers infusion 125 mL/hr, IntraVENous, Continuous, Starting on Tue02/19/25 at 1515, Recovery (only) 1515 (Rate/Dose Veri fy - Provider: Maryuri Dailey RN) PRN Medication Order 02/17/2025 02/18/2025 02/19/2025 ALPRAZolam (Xanax) disintegrating tablet 0.25 mg 0.25 mg, Oral, Once PRN, anxiety, Starting on Tue02/19/25 at 1158, For 1 dose, Preprocedure, Please do not administer prior to obtaining consent and/or history and physical. diphenhydrAMINE (BENADryl) injection 12.5 mg 12.5 mg, IntraVENous, Once PRN, itching, Starting on Tue02/19/25 at 1503, For 1 dose, Recovery (only) fentaNYL (Sublimaze) injection 25 mcg 25 mcg, IntraVENous, Every 5 min PRN, moderate pain (4-6), Starting on Tue02/19/25 at 1503, For 3 doses, Recovery (only), Phase I and Phase II- Initial therapy for moderate pain (4-6). Restricted to a 90 minute time frame starting when the patient can verbally state their pain score. If after 2 doses the pain score does not decrease by more than one point, then call the provider. If oral meds are utilized, do not return to initial therapy medications. hydrALAZINE (Apresoline) injection 5 mg(Linked Group 2) 5 mg, IntraVENous, Every 15 min PRN, high blood pressure, for SBP greater than 160 mmHg for 2 consecutive measurements taken from different sites, Starting on Tue02/19/25 at 1503, For 2 doses, Recovery (only), PRN for SBP > 160 for 2 consecutive measurements, and if one of the following conditions is met: 1) If IV labetolol is ineffective. 2) If HR is under 60. 3) If patient has heart block, COPD or asthma. If both labetalol and hydralazine ineffective, notify anesthesia provider. labetalol (Normodyne,Trandate) injection 5 mg(Linked Group 2) 5 mg, IntraVENous, Every 10 min PRN, high blood pressure, for SBP greater than 160 mmHg for 2 consecutive measurements taken from different sites., Starting on Tue02/19/25 at 1503, For 2 doses, Recovery (only), PRN for SBP >160 for 2 consecutive measurements, if HR is 60 or greater. If beta alyce is contraindicated (HR less than 60, heart block, COPD or asthma) use hydralazine IV order. ondansetron (Zofran) injection 4 mg 4 mg, IntraVENous, Once PRN, nausea, Starting on Tue02/19/25 at 1503, For 1 dose, Recovery (only), Initial antiemetic therapy. oxyCODONE (Roxicodone) immediate release tablet 5 mg 5 mg, Oral, Every 4 hours PRN, moderate pain (4-6), severe pain (7-10), Starting on Tue02/19/25 at 1503, For 1 dose, Recovery (only), PHASE II sodium chloride 0.9 % bolus 500 mL 500 mL, IntraVENous, at 1,000 mL/hr, Administer over 0.5 Hours, PRN, Anti-nausea, Starting on Tue02/19/25 at 1503, Recovery (only), Indications: Anti-nausea sodium chloride 0.9 % infusion 5-250 mL/hr, IntraVENous, PRN, if patient receiving piggyback infusions and maintenance fluids are not ordered OR KVO fluids to protect IV site / prevent frequent line interruptions / long duration, Starting on Tue02/19/25 at 1158, Preprocedure, For piggyback infusion, administer at same rate as piggyback for a total of 25 mL. Enter 25 mL into dose field and piggyback rate into rate field of order. If piggyback is infusing at a rate less than 100 mL/hr, enter 25 mL into dose field and 100 mL/hr into rate field of order. For KVO fluids, enter rate of 20 mL/hr or less into rate field of order. sodium chloride 0.9 % infusion 5-250 mL/hr, IntraVENous, PRN, if patient receiving piggyback infusions and maintenance fluids are not ordered OR KVO fluids to protect IV site / prevent frequent line interruptions/ long duration, Starting on Tue02/19/25 at 1158, Preprocedure, For piggyback infusion, administer at same rate as piggyback for a total of 25 mL. Enter 25 mL into dose field and piggyback rate into rate field of order. If piggyback is infusing at a rate less than 100 mL/hr, enter 25 mL into dose field and 100 mL/hr into rate field of order. For KVO fluids, enter rate of 20 mL/hr or less into rate field of order. sodium chloride 0.9 % infusion 5-250 mL/hr, IntraVENous, PRN, if patient receiving piggyback infusions and maintenance fluids are not ordered OR KVO fluids to protect IV site / prevent frequent line interruptions/ long duration, Starting on Tue02/19/25 at 1503, Recovery (only), For piggyback infusion, administer at same rate as piggyback for a total of 25 mL. Enter 25 mL into dose field and piggyback rate into rate field of order. If piggyback is infusing at a rate less than 100 mL/hr, enter 25 mL into dose field and 100 mL/hr into rate field of order. For KVO fluids, enter rate of 20 mL/hr or less into rate field of order. sodium chloride 0.9 % irrigation solution (CANCELED) As needed, Starting on e 02/19/25 at 1440, Intraprocedure 1440 (Given - Provid er: Skylar Olson MD) sodium chloride 0.9% (NS) flush 10 mL 10 mL, IntraVENous, PRN, line care, Starting on e 02/19/25 at 1158, Preprocedure, After every IV line use sodium chloride 0.9% (NS) flush 10 mL 10 mL, IntraVENous, PRN, line care, Starting on e 02/19/25 at 1503, Recovery (only), After every IV line use sodium chloride 0.9% (NS) flush 5-40 mL 5-40 mL, IntraVENous, PRN, line care, After every IV line use, Starting on 02/19/25 at 1158, Preprocedure, For Line Patency: Peripheral IV = 5 mL; Midline or Central Line = 10 mL/lumen. If following IV push medication, administer flush at same rate as the IV push. Flush volume is determined by type of infusion therapy being given. For non-viscous solutions use: Peripheral IV = 5 mL Midline or Central Line = 10 mL/lumen For viscous solutions (i.e. blood components, parenteral nutrition, contrast media, or after obtaining blood sample) use: Peripheral IV = 10 mL Midline or Central Line = 20 mL/lumen sterile water irrigation solution (CANCELED) As needed, Starting on e 02/19/25 at 1438, Intraprocedure 1438 (Given - Provid er: Skylar Olson MD) Linked Groups Order Group 1: famotidine (Pepcid) tablet 20 mg (COMPLETED)Jump to med 20 mg, Oral, Once, On Tue02/19/25 at 1200, For 1 dose, Preprocedure, IV or Oral Or famotidine (Pepcid) 20 mg in sodium chloride (PF) 0.9 % 10 mL injection (COMPLETED) 20 mg, IntraVENous, Administer over 2 Minutes, Once, On Tue02/19/25 at 1200, For 1 dose, Preprocedure, IV or Oral Group 2: labetalol (Normodyne,Trandate) injection 5 mgJump to med 5 mg, IntraVENous, Every 10 min PRN, high blood pressure, for SBP greater than 160 mmHg for 2 consecutive measurements taken from different sites., Starting on Tue02/19/25 at 1503, For 2 doses, Recovery (only), PRN for SBP >160 for 2 consecutive measurements, if HR is 60 or greater. If beta alyce is contraindicated (HR less than 60, heart block, COPD or asthma) use hydralazine IV order. Or hydrALAZINE (Apresoline) injection 5 mgJump to med 5 mg, IntraVENous, Every 15 min PRN, high blood pressure, for SBP greater than 160 mmHg for 2 consecutive measurements taken from different sites, Starting on Tue02/19/25 at 1503, For 2 doses, Recovery (only), PRN for SBP > 160 for 2 consecutive measurements, and if one of the following conditions is met: 1) If IV labetolol is ineffective. 2) If HR is under 60. 3) If patient has heart block, COPD or asthma. If both labetalol and hydralazine ineffective, notify anesthesia provider. Care Teams (unrecognized sec tion and content) Call Worker Relationship Specialty Start Date End Date Stacey Newberry DO [address] [place] [address] PCP - General 01/25/22 Call Worker Relationship Specialty Start Date End Date Stacey Newberry IV, MD [address] [place] [id number] PCP - General Family Practice 03/15/22 Call Worker Relationship Specialty Start Date End Date Stacey Nweberry DO [address] [place] [address] PCP - General 01/25/22 Call Worker Relationship Specialty Start Date End Date Stacey Newberry DO [address] [place] [address] PCP - General 01/25/22 Team Status: Active Member Role Status Dates Dr. Yoan Leavitt , Family Provider Active Dr. Stacey Newberry DO Primary Care Provider Active Team Status: Inactive Member Role Status Dates Dr. Stacey Newberry DO Primary Care Provider, Referrin g Provider Active Meredith Alva GREASE PACKER, GREASE PACKER-C Attending Provider Active Team Status: Inactive Member Role Status Dates Dr. Stacey Newberry DO Primary Care Provider Active Dr. Shant Guevara MD Admit Provider, Attending Provid er Active Call Worker Relationship Specialty Start Date End Date Stacey Newberry DO [address] [place] [address] 35997 PCP - General 01/25/22 Tamra Lind DO [address] [place] [address] Surgeon Urology 09/25/22 Sarath Ramos MD [address] [place] [address] Surgeon Urology 09/29/22 Elie Umana MD [address] [place] [phone] Surgeon Urology 10/25/22 Call Worker Relationship Specialty Start Date End Date Stacey Newberry DO [address] [place] [address]275 PCP - General 01/25/22 Tamra Lind DO [address] [place] [address] Surgeon Urology 09/25/22 Sarath Ramos MD [address] [place] [address] Surgeon Urology 09/29/22 Elie Umana MD [address] [place] [address] Surgeon Urology 10/25/22 Call Worker Relationship Specialty Start Date End Date Stacey Newberry DO [address] [place] [address] 77728 PCP - General 01/25/22 Tamra Lind DO [address] [place] [address] Surgeon Urology 09/25/22 Sarath Ramos MD [address] [place] [address] Surgeon Urology 09/29/22 Elie Umana MD [address] [place] [phone] Surgeon Urology 10/25/22 Call Worker Relationship Specialty Start Date End Date Stacey Newberry DO [address] [place] [address]60 PCP - General 01/25/22 Tamra Lind DO [address] [place] [address] Surgeon Urology 09/25/22 Sarath Ramos MD [address] [place] [address] Surgeon Urology 09/29/22 Elie Umana MD [address] [place] [phone] Surgeon Urology 10/25/22 Call Worker Relationship Specialty Start Date End Date Stacey Newberry DO [address] [place] [address] 87225 PCP - General 01/25/22 Tamra Lind DO [address] [place] [address] Surgeon Urology 09/25/22 Sarath Ramos MD [address] [place] [address] Surgeon Urology 09/29/22 Elie Umana MD [address] [place] [phone] Surgeon Urology 10/25/22 Call Worker Relationship Specialty Start Date End Date Stacey Newberry DO [address] [place] [address]85 PCP - General 01/25/22 Tamra Lind DO [address] [place] [address] Surgeon Urology 09/25/22 Sarath Ramos MD [address] [place] [address] Surgeon Urology 09/29/22 Elie Umana MD [address] [place] [phone] Surgeon Urology 10/25/22 Call Worker Relationship Specialty Start Date End Date Stacey Newberry DO [address] [place] [address] PCP - General 01/25/22 Tamra Lind DO [address] [place] [address] Surgeon Urology 09/25/22 Sarath Ramos MD [address] [place] [address] Surgeon Urology 09/29/22 Elie Umana MD [address] [place] [address] Surgeon Urology 10/25/22 Call Worker Relationship Specialty Start Date End Date Stacey Newberry [address] [place] [address] PCP - General 01/25/22 Tamra Lind DO [address] [place] [address] Surgeon Urology 09/25/22 Sarath Ramos MD [address] [place] [address] Surgeon Urology 09/29/22 Elie Umana MD [address] [place] [phone] Surgeon Urology 10/25/22 Call Worker Relationship Specialty Start Date End Date Stacey Newberry DO [address] [place] [address] PCP - General 01/25/22 Tamra Lind DO [address] [place] [address] Surgeon Urology 09/25/22 Sarath Ramos MD [address] [place] [address] Surgeon Urology 09/29/22 Elie Umana MD [address] [place] [phone] Surgeon Urology 10/25/22 Call Worker Relationship Specialty Start Date End Date Stacey Newberry DO [address] [place] [address] 78035 PCP - General 01/25/22 Tamra Lind DO [address] [place] [address] Surgeon Urology 09/25/22 Sarath Ramos MD [address] [place] [address] Surgeon Urology 09/29/22 Elie Umana MD [address] [place] [phone] Surgeon Urology 10/25/22 Call Worker Relationship Specialty Start Date End Date Stacey Newberry DO [address] [place] [address] PCP - General 01/25/22 Tamra Lind DO [address] [place] [address] Surgeon Urology 09/25/22 Sarath Ramos MD [address] [place] [address] Surgeon Urology 09/29/22 Elie Umana MD [address] [place] [phone] Surgeon Urology 10/25/22 Call Worker Relationship Specialty Start Date End Date Stacey Newberry DO [address] [place] [address] 22711 PCP - General 01/25/22 Tamra Lind DO [address] [place] [address] Surgeon Urology 09/25/22 Sarath Ramos MD [address] [place] [address] Surgeon Urology 09/29/22 Elie Umana MD [address] [place] [phone] Surgeon Urology 10/25/22 Call Worker Relationship Specialty Start Date End Date Stacey Newberry DO [address] [place] [address] 57863 PCP - General 01/25/22 Tamra Lind DO [address] [place] [address] Surgeon Urology 09/25/22 Sarath Ramos MD [address] [place] [address] Surgeon Urology 09/29/22 Elie Umana MD [address] [place] [phone] Surgeon Urology 10/25/22 Call Worker Relationship Specialty Start Date End Date Stacey Newberry DO [address] [place] [address] PCP - General 01/25/22 Tamra Lind DO [address] [place] [address] Surgeon Urology 09/25/22 Sarath Ramos MD [address] [place] [address] Surgeon Urology 09/29/22 Elie Umana MD [address] [place] [address] Surgeon Urology 10/25/22 Call Worker Relationship Specialty Start Date End Date Stacey Newberry DO [address] [place] [address]35 PCP - General 01/25/22 Tamra Lind DO [address] [place] [address] Surgeon Urology 09/25/22 Sarath Ramos MD [address] [place] [address] Surgeon Urology 09/29/22 Elie Umana MD [address] [place] [phone] Surgeon Urology 10/25/22 Call Worker Relationship Specialty Start Date End Date Stacey Newberry [address] [place] [address] [facility] - General 01/25/22 Tamra Lind DO [address] [place] [address] Surgeon Urology 09/25/22 Sarath Ramos MD [address] [place] [address] Surgeon Urology 09/29/22 Elie Umana MD [address] [place] [phone] Surgeon Urology 10/25/22 Call Worker Relationship Specialty Start Date End Date Tamra Lind DO [address] [place] [address] Surgeon Urology 09/25/22 Sarath Ramos MD [address] [place] [address] Surgeon Urology 09/29/22 Elie Umana MD [address] [place] [phone] Surgeon Urology 10/25/22 Call Worker Relationship Specialty Start Date End Date Tamra Lind DO [address] [place] [address] Surgeon Urology 09/25/22 Sarath Ramos MD [address] [place] [address] Surgeon Urology 09/29/22 Elie Umana MD [address] [place] [phone] Surgeon Urology 10/25/22 Call Worker Relationship Specialty Start Date End Date Tamra Lind DO [address] [place] [address] Surgeon Urology 09/25/22 Sarath Ramos MD [address] [place] [address] Surgeon Urology 09/29/22 Elie Umana MD [address] [place] [phone] Surgeon Urology 10/25/22 Shaun Eastman MD [address] [place] [address] Urology 02/22/25 Team Status: Active Member Role Status Dates Dr. Nay Greenwood MD Primary Care Provider Active Team Status: Active Member Role Status Dates Dr. Nay Greenwood MD Primary Care Provider Active Start: December 03, 2024 Dr. Nay FLETCHER MD Attending Provider Active Start: December 03, 2024 Team Status: Inactive Member Role Status Dates Dr. Nay Greenwood MD Primary Care Provider Active Start: December 10, 2024 End: December 10, 2024 Dr. Nay FLETCHER MD Attending Provider Active Start: December 10, 2024 End: December 10, 2024 Team Status: Active Member Role Status Dates Dr. Nay Greenwood MD Primary Care Provider Active Start: December 14, 2024 Dr. Nay FLETCHER MD Attending Provider Active Start: December 14, 2024 Team Status: Inactive Member Role Status Dates Dr. Nay Greenwood MD Primary Care Provider Active Start: December 28, 2024 End: December 28, 2024 Dr. Masood Holden DO Attending Provider Active Start: December 28, 2024 End: December 28, 2024 Dr. Masood Holden DO Emergency Provider Active Start: December 28, 2024 End: December 28, 2024 Team Status: Active Member Role Status Dates Dr. Nay Greenwood MD Primary Care Provider Active Start: February 04, 2025 Dr. Nay FLETCHER MD Attending Provider Active Start: February 04, 2025 Team Status: Inactive Member Role Status Dates Dr. Nay Greenwood MD Primary Care Provider Active Start: February 25, 2025 End: February 25, 2025 Dr. Nay FLETCHER MD Attending Provider Active Start: February 25, 2025 End: February 25, 2025 Dr. Nay FLETCHER MD Referring Provider Active Start: February 25, 2025 End: February 25, 2025 Team Status: Inactive Member Role Status Dates Dr. Nay Greenwood MD Primary Care Provider Active Start: February 04, 2025 End: February 04, 2025 Dr. Nay FLETCHER MD Attending Provider Active Start: February 04, 2025 End: February 04, 2025 Call Worker Relationship Specialty Start Date End Date Tamra Lind DO [address] [place] [address] Surgeon Urology 09/25/22 Sarath Ramos MD [address] [place] [address] Surgeon Urology 09/29/22 Elie Umana MD [address] [place] [phone] Surgeon Urology 10/25/22 Shaun Eastman MD [address] [place] [address] Urology 02/22/25 Call Worker Relationship Specialty Start Date End Date Tamra Lind DO [address] [place] [address] Surgeon Urology 09/25/22 Sarath Ramos MD [address] [place] [address] Surgeon Urology 09/29/22 Elie Umana MD [address] [place] [phone] Surgeon Urology 10/25/22 Shaun Eastman MD [address] [place] [address] Urology 02/22/25 Source Comments (unrecognize d section and content) In the event this informatio n is protected by the Federal Confidentiality of Alcohol and Drug Abuse Patient Records regulations: The Federal rules restrict any use of the information to criminally investigate or prosecute any alcohol or drug abuse patient.[facility] [place] Reason for Visit (unrecogniz ed section and content) Reason Comments Acute Visit sore on back from gl ue from surgery x 3 days Reason Onset Date Comments Cancelled Appointment 10/25/2023 10/25/23 P t called at 07:17 AM pt not feeling well pt cx appt would like a call back to r/s appt wlm Reason Comments Dysuria History of bladder i nfections Urinary Frequency Reason Onset Date Comments Vaginal Pain 11/11/2023 Reason Onset Date Comments Results 11/14/2023 Specialty Diagnoses / Procedures Referred By Eli carver Referred To Contact Diagnoses Calculus of kidney Calculus of kidney [N20.0] Procedures AK CYSTO BLADDER W/URETERAL CATHETERIZATION AK CYSTO W/URETEROSCOPY W/LITHOTRIPSY AK CYSTO W/INSERT URETERAL STENT AK CYSTO MANJ W/O RMVL URETERAL STONE CYSTOSCOPY RETROGRADE PYELOGRAMS, RIGHT URETEROSCOPY, HOLMIUM LASER LITHOTRIPSY, STONE BASKET EXTRACTION, RIGHT STENT PLACEMENT CYSTOSCOPY WITH URETEROSCOPY AND OR PYELOSCOPY WITH REMOVAL OR MANIPULATION CALCULUS WITH LITHOTRIPSY CYSTOSCOPY WITH INSERTION URETERAL STENT CYSTOURETHROSCOPY WITH MANIPULATION, WITHOUT REMOVAL OF URETERAL CALCULUS Sarath Ramos MD [address] [place] [address] [facility] [address] [place] [address] Referral ID Status Reason Start Date Expiration Date Visits Re quested Visits Authorized [id number] 1 1 Specialty Diagnoses / Procedures Referred By Eli carver Referred To Contact Diagnoses Calculus of kidney Calculus of kidney [N20.0] Procedures AK CYSTO BLADDER W/URETERAL CATHETERIZATION AK CYSTO W/URETEROSCOPY W/LITHOTRIPSY AK CYSTO W/INSERT URETERAL STENT CYSTOSCOPY AND PYELOGRAM, RIGHT URETEROSCOPY HOLMIUM LASER LITHOTRIPSY, RIGHT URETERAL STENT REMOVAL CYSTOSCOPY WITH URETEROSCOPY AND OR PYELOSCOPY WITH REMOVAL OR MANIPULATION CALCULUS WITH LITHOTRIPSY CYSTOSCOPY WITH INSERTION URETERAL STENT Sarath Ramos MD [address] [place] [address] [address] [facility] [address] [place] [address] Referral ID Status Reason Start Date Expiration Date Visits Re quested Visits Authorized [id number] 1 1 Specialty Diagnoses / Procedures Referred By Contac t Referred To Contact Radiology Diagnoses UPJ obstruction, acquired Procedures NM kidney flow/function w/wo Sarath Fontanez MD [address] [place] [address] Referral ID Status Reason Start Date Expiration Date V isits Requested Visits Authorized [id number] Authorized 01/06/2024 01/05/2025 3 3 Reason Comments Nephrolithiasis Reason Onset Date Comments Other 01/18/2025 Authorization Reason Onset Date Comments Results 02/05/2025 Ct Scan Reason Comments Follow-up Follow up - pt denie s issues, pain, distress or discomfort currently Reason Comments Procedure Cystoscopy with sten t removal Reason Onset Date Comments Other 03/06/2025 Prior authorizat ion INFORMATION SOURCE (unrecogn ized section and content) DATE CREATED AUTHOR 03/16/2022 [facility] DATE CREATED AUTHOR AUTHOR'S ORGANIZ ATION 07/21/2022 [facility] DATE CREATED AUTHOR AUTHOR'S ORGANIZ ATION 09/25/2022 [facility] DATE CREATED AUTHOR AUTHOR'S ORGANIZ ATION 03/30/2024 [facility] DATE CREATED AUTHOR AUTHOR'S ORGANIZ ATION 03/07/2025 [facility] DATE CREATED AUTHOR AUTHOR'S ORGANIZ ATION 09/29/2025 [facility] Care Team (unrecognized sect ion and content) Care Team Personnel Name: Juan Pablo Thomson Clerfernandez Rocha PT Position: P3 Scheduling - Barge Pilot Advanced Member Role: Other Name: LYNETTE FARIAS MD Member Role: Drivers' Cash Clerk Address: Address: [facility] [address] [place] [address]- Name: RADHA SHOEMAKER DO Position: P3 Physician - Orthopedics Med Service: Active Provider Member Role: Orthopaedist Address: Address: [facility] [address] [place] [address]- Name: STACEY NEWBERRY DO Position: P4 Physician - Primary Care Med Service: Active Provider Member Role: Primary Care Physician Address: Address: [address] [place] [address]- [place] Name: KRISH HARRIS MD Position: Physician Med Service: Admitting Member Role: Digital Media Producer Address: Address: [address] [facility] [address] [place] [address]- [place] Name: YUNIOR RODRIGUEZ MD Member Role: General Ophthalmologist Address: Address: [address] [place] [address]- [place] Name: Terrance Salazar RN Position: AO RN Member Role: OBGYN Name: TATA SENA MD Member Role: Urologist Address: Address: [address] [place] [address]- [place] Care Team Related Persons Name: SHIDLER, COLTON Name: SHIDLER, COLTON Name: SHIDLER, COLTON Name: SHIDLER, COLTON Name: SHIDLER, COLTON Name: SHIDLER, COLTON Name: SHIDLER, COLTON Name: SHIDLER, COLTON Name: SHIDLER, COLTON Name: SHIDLER, COLTON Name: SHIDLER, COLTON Care Team Personnel Name: [facility] Josefina PT Position: P3 Scheduling - Barge Pilot Advanced Member Role: Other Name: LYNETTE FARIAS MD Member Role: Drivers' Cash Clerk Address: Address: [facility] [address] [place] [address]- [place] Name: RADHA SHOEMAKER DO Position: P3 Physician - Orthopedics Med Service: Active Provider Member Role: Orthopaedist Address: Address: [facility] [address] [place] [address]- Name: STACEY NEWBERRY DO Position: P4 Physician - Primary Care Med Service: Active Provider Member Role: Primary Care Physician Address: Address: [address] [place] [address]- Name: KRISH HARRIS MD Position: Physician Med Service: Admitting Member Role: Digital Media Producer Address: Address: [address] [address] [place] [address]- [place] Name: YUNIOR RODRIGUEZ MD Member Role: General Ophthalmologist Address: Address: [address] [place] [address]- Name: Terrance Salazar RN Position: AO RN Member Role: OBGYN Name: TATA SENA MD Member Role: Urologist Address: Address: [address] [facility] [address] [place] [address]- Care Team Related Persons Name: SHIDLER, COLTON Name: SHIDLER, COLTON Name: SHIDLER, COLTON Name: SHIDLER, COLTON Name: SHIDLER, COLTON Name: SHIDLER, COLTON Name: SHIDLER, COLTON Name: SHIDLER, COLTON Name: SHIDLER, COLTON Name: SHIDLER, COLTON Name: SHIDLER, COLTON Care Team Personnel Name: Juan Pablo Thomson Clerfernandez Rocha PT Position: P3 Scheduling - Barge Pilot Advanced Member Role: Other Name: LYNETTE FARIAS MD Member Role: Drivers' Cash Clerk Address: Address: [facility] [address] [facility] [place] [address]- Name: RADHA SHOEMAKER DO Position: P3 Physician - Orthopedics Med Service: Active Provider Member Role: Orthopaedist Address: Address: [facility] [address] [place] [address]- Name: STACEY NEWBERRY DO Position: P4 Physician - Primary Care Med Service: Active Provider Member Role: Primary Care Physician Address: Address: [address] [place] [address]- Name: KRISH HARRIS MD Position: Physician Med Service: Admitting Member Role: Digital Media Producer Address: Address: [address] [place] [address]- Name: YUNIOR RODRIGUEZ MD Member Role: General Ophthalmologist Address: Address: [address] [facility] [address] [place] [address]- [place] Name: Terrance Salazar RN Position: AO RN Member Role: OBGYN Name: TATA SENA MD Member Role: Urologist Address: Address: [address] [facility] [address] [place] [address]- Care Team Related Persons Name: SHIDLER, COLTON Name: SHIDLER, COLTON Name: SHIDLER, COLTON Name: SHIDLER, COLTON Name: COLTON RASHEED Name: COLTON RASHEED Name: COLTON RASHEED Name: COLTON RASHEED Name: COLTON RASHEED Name: COLTON RASHEED Name: COLTON RASHEED Goals (unrecognized section and content) Goals may be documented in a n alternate section FOR RECORDS PERTAINING TO PATIENTS WHO ARE OR HAVE BEEN ENROLLED IN A CHEMICAL DEPENDENCY/SUBSTANCEABUSE PROGRAM, SOME INFORMATION MAY BE OMITTED. This clinical summary was aggregated from multiple sources. Caution should be exercised in using it in the provision of clinical care. This summary normalizes information from multiple sources, and as a consequence, information in this document may materially change the coding, format and clinical context of patient data. In addition, data may be omitted in some cases. CLINICAL DECISIONS SHOULD BE BASED ON THE PRIMARY CLINICAL RECORDS. [facility] [employer] [facility]. provides no warranty or guarantee of the accuracy or completeness of information in this document.
[2025-10-14 08:55] LABS: Hematocrit 39.4 % (37-47); Hemoglobin 13.4 g/dL (12.0-15.0); Mean Corp Hgb Conc 34.0 g/dL (32-36); Mean Corpuscular Volume 96.1 fL (81-99); Mean Platelet Vol. 9.5 fl (6.2-12.0); Platelet Count 298 K/mm3 (150-450); RBC Distribution Width CV 13.0 % (11.6-14.6); RBC Distribution Width SD 46.4 fl (35.1-43.9); Red Blood Count 4.10 M/mm3 (4.2-5.4); White Blood Count 5.6 K/mm3 (4.4-11.0)
[2025-10-14 09:46] LABS: Anion Gap 12 (5-15); BUN 14 mg/dL (4-19); BUN/Creat Ratio 20.4 RATIO (10-20); Calcium,Total 9.7 mg/dL (7.6-11.0); Carbon Dioxide 21.3 mmol/L (21.0-32.0); Chloride 105 mmol/L (98-108); Glucose 110 mg/dL (70-99); Potassium 4.3 mmol/L (3.3-5.1); Vitamin B12 881 pg/mL (180-914)
== END ==
LOC: OLS.SWAL 04:00
PROVIDERS: PCP Internal Medicine; Referring Provider Internal Medicine; Visit Provider Internal Medicine
DX: I10 Essential (primary) hypertension (principal); E78.5 Hyperlipidemia, unspecified; E03.9 Hypothyroidism, unspecified
CPT/HCPCS: 36415; 80048; 82607; 84443; 85027

== ENCOUNTER → 2025-11-12 05:00 | Outpatient (REF) | payer MEDICARE, MEDICAID, SELFPAY ==
--- OUTSIDE RECORDS SUMMARY | 2025-11-12 04:12 | XMS RPT_ITS | CCD ---
Author Organization [facility] Care Team Providers Care Lawyer Probate Name Role Phone STACEY NEWBERRY DO Primary [...] Unavailable HALKO DO, STACEY Primary Care Unavailable EPHRAIM RESERVATIONS CLERK-WAREHOUSE WORKER, MARIA MELIN Attending Unavailabl e HALKO DO, [...] DR MIX Attending Unavailabl e HALKO DO, SATCEY Primary Care Unavailable RIDER DO, DR SWETHA Colon Attending Unavailable HALKO DO, STACEY Primary Care Unavailable FROMMELT DO, YOAN Attending Unavailable HALKO DO, STACEY Primary Care Unavailable RIDER DO, DR SWETHA Colon Attending Unavailable HALKO DO, STACEY Primary Care Unavailable DEON DOBSON, DR DAMIR Parker Attending Unavai lable HALKO DO, STACEY Primary Care Unavailable Dong DOBSON, Elie Payne Unavailable Shaun Eastman MD Unavailable Dr. Nay Greenwood MD Primary Care Provider Unava Dr. Nay Jones MD Attending Provider Unavailkerry Holden DO, Dr. Correia Attending Provider [phone]. Masood Holden DO Emergency Provider [phone] Dr. Nay Greenwood MD Referring Provider UnavailSHAUN [...] Irregular heart beat (finding), Other (See Comments) [facility] (20 sources) Hmg-Coa Reductase Inhibitors (Statins); Translations: [statins] Drug allergy 01-28-20 22 myalgias [facility] (20 sources) Lisinopril; Translations: [lisinopril] Drug Allergy 12-30-19 22 Cough (finding), Other (See Comments) [facility] (20 sources) predniSONE; Translations: [prednisone] Drug Allergy 06-10-20 15 Itching, Rash [facility] (20 sources) Promethazine; Translations: [promethazine] Drug Allergy 06-10-20 15 Irregular heart beat (finding), Other (See Comments) [facility] Comment on above: PALPITATIONS, "FELT LIMP" (20 sources) HYDROcodone Drug Allergy 06-10-20 15 Other (See Comments) [facility] (20 sources) Sulfonamides (Antibiotic) Propensity to adverse reactions to drug 08-05-20 22 Dizziness or Vertigo [facility] (4 sources) HYDROcodone; Translations: [hydrocodone bitartrate] Drug Allergy 12-15-19 23 Other [facility] Comment on above: "FLUSHED AND HOT" (3 sources) Xydodfo-Dej-Uff Reductase Inhibitor Propensity to adverse reactions 12-15-19 23 Pain in joints [facility] (20 sources) Lisinopril Propensity to adverse reactions 12-30-19 [facility] (20 sources) Prednisone Allergy to substance 06-10-20 15 Itching, Rash [facility] (1 source) cyclobenzaprine Drug Allergy 12-28-19 [facility] (1 source) Lisinopril Drug Allergy 12-28-19 [facility] (1 source) predniSONE Drug Allergy 12-28-19 [facility] (1 source) Promethazine Drug Allergy 12-28-19 [facility] (1 source) Zgjbdus-Rcm-Bze Reductase Inhibitor Drug allergy (disorder) 12-28-19 [facility] NEGATED: Highlighted row has been ruled out! (2 sources) Other Propensity to adverse reactions 03-22-20 [facility] Medications Current Medications Medication Drug Class(es) Dates [...] cap(s), 0 Refill(s), 09/07/22 8:58:00 EDT, Pharmacy: [facility]/pharmacy #[id number], 157.5, cm, 08/31/22 8:29:00 EDT, Height, 67.2 Start Date: 08/31/22 Stop Date: 09/07/22 Status: Ordered Start: 08-11-2022 End: 08-16-2022 cefdinir 300 mg oral capsule Dose : 300 mg = 1 cap(s), Oral, q12h, X 5 day(s), # 10 cap(s), 0 Refill(s), 08/16/22 12:19:00 EDT, Pharmacy: [facility]/pharmacy #[id number], Cystitis Hematuria, 157.5, cm, [...] 0 Refill(s), 10/31/23 9:21:00 AM EST, [id number], UTI (urinary tract infection), 162, cm, [...] Daily, # 90 tab(s), 1 Refill(s), [id number], 162, cm, 11/15/23 9:24:00 EST, Height, kg, 11/15/23 9:35:00 EST, Dosing Weight Start Date: 12/28/23 Status: Ordered Start: 12-28-2023 cholecalcifero l 100 mcg (4000 intl units) oral tablet Dose : 100 mcg = 1 tab(s), Oral, Daily, # 90 tab(s), 1 Refill(s), Pharmacy: [facility]/pharmacy #[id number], 162, cm, 11/15/23 9:24:00 [...] 0 Refill(s), 11/08/23 1:21:00 PM EST, Pharmacy: [facility]/pharmacy #[id number], 162, cm, 10/24/23 8:57:00 EST, Height, 67.2, kg, 10/29/23 9:19:00 EST, Dosing Weight Start Date: 11/01/23 Stop Date: 11/08/23 Status: Ordered citric acid 1002 mg / potassium citrate 3300 mg powder for oral solution (10 sources) Calculi Dissolution Agent, Anti-coagulant Start: 11-08-2022 take 1 dose by mouth once daily after mealtime potassium citrate-citric acid (Oeymd-W-Xqwctjtg) 0320-4985 MG packet Indications: Renal calculus, left Take [...] 0 Refill(s), 11/16/23 12:41:00 PM EST, Pharmacy: [facility]/pharmacy #[id number], Claustrophobia, 162, cm, 11/15/23 9:24:00 EST, Height, 70.1, kg, 11/15/23 9:35:00 EST, Dosing Weight Start Date: 11/15/23 Stop Date: 11/16/23 Status: Ordered docusate sodium 50 mg / sennosides, custodial 8.6 mg oral tablet (3 sources) Start: [...] tablet 0 12/06/2023 12/11/2023 Active lactobacillus acidophilus [id number] unt / pectin 100 mg oral tablet (3 sources) Start: 12-23-2022 take 1 tablet by mouth twice daily Acidophilus-Pectin , Terry 25 million cell -100 mg Tablet Active 1 {tbl} PO TWICE A DAY 0 December 23, 2022 1:00am levoFLOXacin 500 mg oral tablet (1 source) Quinolone Antimicrobial Start: 01-15-2024 End: 01-20-2024 levoFLOXacin 500 mg oral tablet Dose : 500 mg = 1 tab(s), Oral, q24h, X 5 day(s), # 5 tab(s), 0 Refill(s), 01/20/24 11:33:00 AM EST, Pharmacy: [facility]/pharmacy #[id number], 162, cm, 01/13/24 13:39:00 [...] # 90 tab(s), 1 Refill(s), [place], [id number], 162, cm, 06/07/23 9:25:00 EDT, Height, kg, 06/07/23 9:25:00 EDT, Dosing Weight Start Date: 06/07/23 Status: Ordered Start: 11-25-2021 End: 01-04-2023 Synthroid 112 mcg (0.112 mg) oral tablet Dose : 112 mcg = 1 tab(s), Oral, qDay, dispense name brand synthroid, # 90 tab(s), 1 Refill(s), [place], [id number], 161.4, cm, 07/06/22 9:59:00 EDT, Height, [...] # 90 tab(s), 1 Refill(s), [place], [id number], 162.5, cm, 05/20/21 10:29:00 EDT, Height, [...] qDay, # 180 tab(s), 1 Refill(s), Pharmacy: [facility]/pharmacy #[id number], 162, cm, 11/15/23 9:24:00 EST, Height, kg, 11/15/23 9:35:00 EST, Dosing Weight Start Date: 11/15/23 Stop Date: 05/13/24 Status: Ordered Start: 08-31-2022 End: 08-14-2023 losartan 25 mg oral tablet D ose : 50 mg = 2 tab(s), Oral, qDay, # 180 tab(s), 1 Refill(s), Pharmacy: [facility]/pharmacy #[id number], 162, cm, 02/15/23 11:00:00 [...] qDay, # 180 tab(s), 1 Refill(s), Pharmacy: [facility]/pharmacy #[id number], 62.6, cm, 12/28/21 8:00:00 [...] hydrochloride 5 mg oral tablet (9 sources) K-hxxvtw-G-aspartate Receptor Antagonist memantine (Namenda) 5 MG tablet Take by mouth 2 times daily. Active mirtazapine 7.5 mg oral tablet (12 sources) Start: 01-30-2024 End: 02-29-2024 mirtazapine 7.5 mg oral tablet Dose : 15 mg = 2 tab(s), Oral, qHS, new dose, # 60 tab(s), 0 Refill(s), [id number], 01/13/24 13:39:00 EST, Height, kg, 01/13/24 13:39:00 EST, Dosing Weight Start Date: 01/30/24 Stop Date: 02/29/24 Status: Ordered Start: 01-13-2024 mirtazapine 7. 5 mg oral tablet Dose : 7.5 mg = 1 tab(s), Oral, qHS, # 30 tab(s), 0 Refill(s), [id number], johnathan Hedrick, 01/13/24 13:39:00 EST, Height, [...] tab(s), 2 Refill(s), 05/23/22 10:01:00 EDT, Pharmacy: [facility]/pharmacy #[id number], 162, cm, 02/22/22 9:24:00 [...] 0 Refill(s), 11/10/23 11:52:00 AM EST, Pharmacy: [facility]/pharmacy #[id number], 162, cm, 10/24/23 8:57:00 EST, Height, kg, 10/29/23 9:19:00 EST, Dosing Weight Start Date: 11/07/23 Stop Date: 11/10/23 Status: Ordered polyethylene glycol 3350 62519 mg powder for oral solution (20 sources) Osmotic Laxative Start: 10-01-2022 End: 03-30-2023 take 17 doses by mouth twice daily MiraLax oral powder for reconstitution Dose : 17 gram(s) =, Oral, BID, dissolve in water before taking, X 30 day(s), # 1,020 gram(s), 5 Refill(s), 03/30/23 16:19:00 EDT, Pharmacy: [facility]/pharmacy #[id number], 157.5, cm, 08/31/22 8:29:00 [...] mEq Start: 03-09-2022 take 1 tablet by [facility] in the morning potassium chloride CR (Klor-Con) 10 MEQ ER tablet Take 10 mEq by mouth in the morning. 0 03/09/2022 Active take 2 tablets by mo [facility] once daily potassium chloride CR (Klor-Con) 10 [...] day(s), # 20 tab(s), 0 Refill(s), Pharmacy: [facility]/pharmacy #[id number], 162, cm, 10/24/23 8:57:00 [...] qDay, # 90 tab(s), 1 Refill(s), Pharmacy: [facility]/pharmacy #[id number], 162, cm, 11/15/23 9:24:00 EST, Height, kg, 11/15/23 9:35:00 EST, Dosing Weight Start Date: 11/15/23 Stop Date: 05/13/24 Status: Ordered Start: 11-07-2023 Vitamin C 500 mg oral tablet Dose : 500 mg = 1 tab(s), Oral, qDay, # 30 tab(s), 0 Refill(s), Pharmacy: [facility]/pharmacy #[id number], 162, cm, 10/24/23 8:57:00 [...] 11/22/2017 Active take 2 tablets by mo [facility] every six hours as needed for pain [...] BID, # 28 packet(s), 0 Refill(s), Pharmacy: [facility]/pharmacy #[id number], 158, cm, 10/05/21 9:44:00 EST, Height, kg, 10/05/21 9:44:00 EST, Dosing Weight Start Date: 10/23/21 Stop Date: 11/06/21 Status: Ordered Start: 09-09-2021 End: 09-23-2021 cholestyramine 4 g/5 g oral powder for reconstitution 1 packet(s), Oral, BID, # 28 packet(s), 0 Refill(s), Pharmacy: [facility]/pharmacy #[id number], 161, cm, 09/08/21 15:25:00 [...] tab(s), 2 Refill(s), 05/23/22 10:01:00 EDT, Pharmacy: [facility]/pharmacy #[id number], 162, cm, 02/22/22 9:24:00 [...] dose, # 90 cap(s), 0 Refill(s), Pharmacy: [facility]/pharmacy #[id number], 162.6, cm, 11/19/21 6:53:00 [...] surgery] Chronic Other aftercare (2 sources) Other terminologist (current) drug therapy; Translations: [Other fci (current) drug therapy] Onset: 4 Episodic Other [...] Absolute Lymph 1.74 X10 3/uL Normal 0.83-4.51 [facility] Comment on above: Performed By: #### L 501.9520, L500.4050, L100.0100, L501.5200 #### [facility] [address] [place], [address] Absolute Neut 2.0 X10 3/uL Normal 2.0-7.7 [facility] Comment on above: Performed By: #### L [id number], L500.4050, L100.0100, L501.5200 #### [facility] [address] [place], [address] Basophils/100 WBC (Bld) 1.1 % High 0-[address] [facility] Comment on above: Performed By: #### L [id number], [id number], L100.0100, [id number] #### [facility] [address] [place], [address] Eosinophils/100 WBC (Bld) 4.5 % Normal 0-5 [facility] Comment on above: Performed By: #### L [id number], [id number], L100.0100, L501.5200 #### [facility] [address] [place], [address] Erythrocyte distribution width (RBC) [Ratio] 13.2 % Normal 11.6-14.6 [facility] Comment on above: Performed By: #### L 501.9520, L500.4050, L100.0100, L501.5200 #### [facility] [address] [place], [address] Hematocrit (Bld) [Volume fraction] 37.3 % Normal 37-47 [facility] Comment on above: Performed By: #### L [id number], L500.4050, L100.0100, L501.5200 #### [facility] [address] [place], [address] Hemoglobin (Bld) [Mass/Vol] 12.5 g/dL Normal 12.0-15.0 [facility] Comment on above: Performed By: #### L 501.9520, [id number], L100.0100, L501.5200 #### [facility] [address] [place], [address] IG% 0.200 Normal 0.0-0.9 [facility] Comment on above: Result Comment: IG% - Immature Granulocytes (promyelocytes, myelocytes and metamyelocytes) > 1% indicates that a LEFT SHIFT is Present. Performed By: #### L 501.9520, L500.4050, L100.0100, L501.5200 #### [facility] [address] [place], [address] Lymphocytes/100 WBC (Bld) 39.5 % Normal 19-41 [facility] Comment on above: Performed By: #### L 501.9520, [id number], L100.0100, L501.5200 #### [facility] [address] [place], [address] MCH (RBC) [Entitic mass] 32.1 pg High 27.0-32.0 [facility] Comment on above: Performed By: #### L 501.9520, L500.4050, L100.0100, L501.5200 #### [facility] [address] [place], [address] MCHC (RBC) [Mass/Vol] 33.5 g/dL Normal 32-36 [facility] Comment on above: Performed By: #### L 501.9520, [id number], L100.0100, L501.5200 #### [facility] [address] [place], [address] MCV (RBC) [Entitic vol] 95.6 fL Normal 81-[address] [facility] Comment on above: Performed By: #### L 501.9520, [id number], L100.0100, L501.5200 #### [facility] [address] [place], [address] Monocytes/100 WBC (Bld) 9.5 % Normal 0-10 [facility] Comment on above: Performed By: #### L 501.9520, [id number], L100.0100, L501.5200 #### [facility] [address] [place], [address] Neutrophils/100 WBC (Bld) 45.2 % Low 47-70 [facility] Comment on above: Performed By: #### L 501.9520, L500.4050, L100.0100, L501.5200 #### [facility] [address] [place], [address] Nucleated RBC (Bld) [#/Vol] 0 10*3/uL Normal 0-5 [facility] Comment on above: Performed By: #### L 501.9520, L500.4050, L100.0100, L501.5200 #### [facility] [address] [place], [address] Platelet mean volume (Bld) [Entitic vol] 9.4 fL Normal 6.2-12.0 [facility] Comment on above: Performed By: #### L 501.9520, L500.4050, L100.0100, L501.5200 #### [facility] [address] [place], [address] Platelets (Bld) [#/Vol] 242 10*3/uL Normal 150-450 [facility] Comment on above: Performed By: #### L 501.9520, L500.4050, L100.0100, L501.5200 #### [facility] [address] [place], [address] RBC (Bld) [#/Vol] 3.90 10*6/uL Low 4.2-5.4 [facility] Comment on above: Performed By: #### L 501.9520, L500.4050, L100.0100, L501.5200 #### [facility] [address] [place], [address] RDW SD 46.5 fl High 35.1-43.9 [facility] Comment on above: Performed By: #### L 501.9520, L500.4050, L100.0100, L501.5200 #### [facility] [address] [place], [address] WBC (Bld) [#/Vol] 4.4 10*3/uL Normal 4.4-11.0 [facility] Comment on above: Performed By: #### L 501.9520, L500.4050, L100.0100, L501.5200 #### [facility] [address] [place], [address] Comprehensive Metabolic [facility] 06-04-2025 Albumin [Mass/Vol] 4.0 g/dL Normal 3.4-4.8 [facility] Comment on above: Performed By: #### L 501.9520, L500.4050, L100.0100, L501.5200 #### [facility] [address] [place], [address] Albumin/Globulin [Mass ratio] 1.4 {ratio} Normal 0.9-2.4 [facility] Comment on above: Performed By: #### L 501.9520, L500.4050, L100.0100, L501.5200 #### [facility] [address] [place], [address] ALK PHOS 100 U/L Normal 35-104 [facility] Comment on above: Performed By: #### L 501.9520, L500.4050, L100.0100, L501.5200 #### [facility] [address] [place], [address] ALT [Catalytic activity/Vol] 14 U/L Normal <=34 [facility] Comment on above: Performed By: #### L 501.9520, L500.4050, L100.0100, L501.5200 #### [facility] [address] [place], [address] AST [Catalytic activity/Vol] 23 U/L Normal <=31 [facility] Comment on above: Performed By: #### L 501.9520, L500.4050, L100.0100, L501.5200 #### [facility] [address] [place], [address] Bilirubin [Mass/Vol] 0.53 mg/dL Normal 0.00-1.30 [facility] Comment on above: Performed By: #### L 501.9520, L500.4050, L100.0100, L501.5200 #### [facility] [address] [place], [address] BUN/CRE 21.5 RATIO High 10-20 [facility] Comment on above: Performed By: #### L 501.9520, L500.4050, L100.0100, L501.5200 #### [facility] [address] [place], [address] Calcium [Mass/Vol] 9.6 mg/dL Normal 7.6-11.0 [facility] Comment on above: Performed By: #### L 501.9520, L500.4050, L100.0100, L501.5200 #### [facility] [address] [place], [address] Chloride [Moles/Vol] 107 mmol/L Normal 98-108 [facility] Comment on above: Performed By: #### L 501.9520, L500.4050, L100.0100, L501.5200 #### [facility] [address] [place], [address] CO2 [Moles/Vol] 21.2 mmol/L Normal 21.0-32.0 [facility] Comment on above: Performed By: #### L 501.9520, L500.4050, L100.0100, L501.5200 #### [facility] [address] [place], [address] Creatinine [Mass/Vol] 0.76 mg/dL Normal 0.70-1.20 [facility] Comment on above: Performed By: #### L 501.9520, L500.4050, L100.0100, L501.5200 #### [facility] [address] [place], [address] GAP 11 Normal 5-15 [facility] Comment on above: Performed By: #### L 501.9520, L500.4050, L100.0100, L501.5200 #### [facility] [address] [place], [address] GFR/1.73 sq M.predicted among non-blacks MDRD (S/P/Bld) [Vol rate/Area] 81 mL/min/{1.73_m2} Normal >60 [facility] Comment on above: Result Comment: mL/m in/1.73m2 CKD-EPI Creatinine Equation (2020) Performed By: #### L 501.9520, L500.4050, L100.0100, L501.5200 #### [facility] [address] [place], [address] Globulin (S) [Mass/Vol] 2.9 g/dL Normal 2.2-4.2 [facility] Comment on above: Performed By: #### L 501.9520, L500.4050, L100.0100, L501.5200 #### [facility] [address] [place], [address] Glucose [Mass/Vol] 109 mg/dL High 70-99 [facility] Comment on above: Performed By: #### L 501.9520, L500.4050, L100.0100, L501.5200 #### [facility] [address] [place], [address] Potassium [Moles/Vol] 4.4 mmol/L Normal 3.3-5.1 [facility] Comment on above: Performed By: #### L 501.9520, L500.4050, L100.0100, L501.5200 #### [facility] [address] [place], [address] Sodium [Moles/Vol] 138 mmol/L Normal 133-145 [facility] Comment on above: Performed By: #### L 501.9520, L500.4050, L100.0100, L501.5200 #### [facility] [address] [place], [address] T PROT 6.9 g/dL Normal 5.9-8.4 [facility] Comment on above: Performed By: #### L 501.9520, L500.4050, L100.0100, L501.5200 #### [facility] [address] [place], [address] Urea nitrogen [Mass/Vol] 16 mg/dL Normal 4-19 [facility] Comment on above: Performed By: #### L 501.9520, L500.4050, L100.0100, L501.5200 #### [facility] [address] [place], [address] Magnesiumon 06-04-2025 Magnesium [Mass/Vol] 2.1 mg/dL Normal 1.5-2.2 [facility] Comment on above: Performed By: #### L 501.9520, L500.4050, L100.0100, L501.5200 #### [facility] [address] [place], [address] Thyroid Stim Hormone (TSH)on 06-04-2025 TSH 3.940 uIU/mL Normal 0.300-4.200 [facility] Comment on above: Performed By: #### L 501.9520, L500.4050, L100.0100, L501.5200 #### [facility] [address] [place], [address] 36on 03-06-2025 36 PT IS SCHEDULED FOR 02/26/26 SO THIS WILL HAVE A PRIOR AUTH DONE IN 1 YEAR FROM NOW. THANK YOU DDL [facility] 36 Your patient has bee n scheduled for their CT ABDOMEN PELVIS WO on 02-26-[address] [facility]. If testing requires an insurance authorization, the authorization must be in place 48 hours prior to the scheduled test or testing will be cancelled. Thank you, Central Sched[facility] Progress Noteon 03-06-2025 Progress Note Pt states she tolerates betadine prep well. UROJET 6 ML urethra [facility] 11956-182-92 LOT # [id number] EXPIRES 11/2026 ADMIN BY CHARAN DOBSON Pt tolerated well [facility] Anion gap in Serum or Plasma Ordered By: Nay Greenwood on 02-25-2025 Anion gap [Moles/Vol] 12 mmol/L - [facility] BUN/creatinine ratioOrdered By: Nay Greenwood on 02-25-2025 Urea nitrogen/Creatinine [Mass ratio] 14.2 mg/mg - [facility] Basic Metabolic Profile (BMP )on 02-25-2025 BUN/CRE 14.2 RATIO Normal 09-16 [facility] Comment on above: Order Comment: 136 Performed By: #### L 501.9520, L500.4050, L100.0100, L501.5200 #### [facility] [address] [place], [address] Calcium [Mass/Vol] 9.4 mg/dL Normal 7.6-11.0 [facility] Comment on above: Order Comment: 136 Performed By: #### L 501.9520, L500.4050, L100.0100, L501.5200 #### [facility] [address] [place], [address] Chloride [Moles/Vol] 107 mmol/L Normal 98-108 [facility] Comment on above: Order Comment: 136 Performed By: #### L 501.9520, L500.4050, L100.0100, L501.5200 #### [facility] [address] [place], [address] CO2 [Moles/Vol] 17.4 mmol/L Low 21.0-32.0 [facility] Comment on above: Order Comment: 136 Performed By: #### L 501.9520, L500.4050, L100.0100, L501.5200 #### [facility] [address] [place], [address] Creatinine [Mass/Vol] 0.79 mg/dL Normal 0.70-1.20 [facility] Comment on above: Order Comment: 136 Performed By: #### L 501.9520, L500.4050, L100.0100, L501.5200 #### [facility] [address] [place], [address] GAP 12 Normal 5-15 [facility] Comment on above: Order Comment: 136 Performed By: #### L 501.9520, L500.4050, L100.0100, L501.5200 #### [facility] [address] [place], [address] GFR/1.73 sq M.predicted among non-blacks MDRD (S/P/Bld) [Vol rate/Area] 77 mL/min/{1.73_m2} Normal >60 [facility] Comment on above: Order Comment: 136 Result Comment: mL/m in/1.73m2 CKD-EPI Creatinine Equation (2020) Performed By: #### L 501.9520, L500.4050, L100.0100, L501.5200 #### [facility] [address] [place], [address] Glucose [Mass/Vol] 106 mg/dL High 70-99 [facility] Comment on above: Order Comment: 136 Performed By: #### L 501.9520, L500.4050, L100.0100, L501.5200 #### [facility] [address] [place], [address] Potassium [Moles/Vol] 4.3 mmol/L Normal 3.3-5.1 [facility] Comment on above: Order Comment: 136 Performed By: #### L 501.9520, L500.4050, L100.0100, L501.5200 #### [facility] [address] [place], [address] Sodium [Moles/Vol] 137 mmol/L Normal 133-145 [facility] Comment on above: Order Comment: 136 Performed By: #### L 501.9520, L500.4050, L100.0100, L501.5200 #### [facility] [address] [place], [address] Urea nitrogen [Mass/Vol] 11 mg/dL Normal 4-19 [facility] Comment on above: Order Comment: 136 Performed By: #### L 501.9520, L500.4050, L100.0100, L501.5200 #### [facility] [address] [place], [address] CBC-Complete Blood Cnt No Coty martinez 02-25-2025 Erythrocyte distribution width (RBC) [Ratio] 14.0 % Normal 11.6-14.6 [facility] Comment on above: Order Comment: 136 Performed By: #### L 501.9520, L500.4050, L100.0100, L501.5200 #### [facility] [address] [place], [address] Hematocrit (Bld) [Volume fraction] 33.2 % Low 37-47 [facility] Comment on above: Order Comment: 136 Performed By: #### L 501.9520, L500.4050, L100.0100, L501.5200 #### [facility] [address] [place], [address] Hemoglobin (Bld) [Mass/Vol] 11.6 g/dL Low 12.0-15.0 [facility] Comment on above: Order Comment: 136 Performed By: #### L 501.9520, L500.4050, L100.0100, L501.5200 #### [facility] [address] [place], [address] MCH (RBC) [Entitic mass] 33.5 pg High 27.0-32.0 [facility] Comment on above: Order Comment: 136 Performed By: #### L 501.9520, L500.4050, L100.0100, L501.5200 #### [facility] [address] [place], [address] MCHC (RBC) [Mass/Vol] 34.9 g/dL Normal 32-36 [facility] Comment on above: Order Comment: 136 Performed By: #### L 501.9520, L500.4050, L100.0100, L501.5200 #### [facility] [address] [place], [address] MCV (RBC) [Entitic vol] 96.0 fL Normal 81-[address] [facility] Comment on above: Order Comment: 136 Performed By: #### L 501.9520, L500.4050, L100.0100, L501.5200 #### [facility] [address] [place], [address] Platelet mean volume (Bld) [Entitic vol] 9.3 fL Normal 6.2-12.0 [facility] Comment on above: Order Comment: 136 Performed By: #### L 501.9520, L500.4050, L100.0100, L501.5200 #### [facility] [address] [place], [address] Platelets (Bld) [#/Vol] 280 10*3/uL Normal 150-450 [facility] Comment on above: Order Comment: 136 Performed By: #### L 501.9520, L500.4050, L100.0100, L501.5200 #### [facility] [address] [place], [address] RBC (Bld) [#/Vol] 3.46 10*6/uL Low 4.2-5.4 [facility] Comment on above: Order Comment: 136 Performed By: #### L 501.9520, L500.4050, L100.0100, L501.5200 #### [facility] [address] [place], [address] RDW SD 49.7 fl High 35.1-43.9 [facility] Comment on above: Order Comment: 136 Performed By: #### L 501.9520, L500.4050, L100.0100, L501.5200 #### [facility] [address] [place], [address] WBC (Bld) [#/Vol] 5.1 10*3/uL Normal 4.4-11.0 [facility] Comment on above: Order Comment: 136 Performed By: #### L 501.9520, L500.4050, L100.0100, L501.5200 #### [facility] [place], [address] Carbon dioxide, total [Moles /volume] in Central venous bloodOrdered By: Nay Greenwood on 02-25-2025 CO2 [Moles/Vol] 17.4 mmol/L Low 21.0-32.0 [facility] Chloride assayOrdered By: Manan Greenwood on 02-25-2025 Chloride [Moles/Vol] 107 mmol/L 98-108 [facility] Erythrocyte distribution wid th (RBC) [Ratio]Ordered By: Nay Greenwood on 02-25-2025 Erythrocyte distribution width (RBC) [Entitic vol] 49.7 fL High 35.1-43.9 [facility] Erythrocyte distribution wid th ratioOrdered By: Nay Greenwood on 02-25-2025 Erythrocyte distribution width (RBC) [Ratio] 14.0 % 11.6-14.6 [facility] GFR/1.73 sq M.predicted monica g non-blacks MDRD (S/P/Bld) [Vol rate/Area]Ordered By: Nay Greenwood on 02-25-2025 Estimated GFR (MDRD) Non-Af Amer 77 >60 [facility] Comment on above: mL/min/1.73m2 CKD-EP I Creatinine Equation (2020) Hematocrit Auto (Bld) [Volum e fraction]Ordered By: Nay Greenwood on 02-25-2025 Hematocrit (Bld) [Volume fraction] 33.2 % Low 37-47 [facility] Hemoglobin measurementOrdere d By: Nay Greenwood on 02-25-2025 Hemoglobin (Bld) [Mass/Vol] 11.6 g/dL Low 12.0-15.0 [facility] MCV (mean corpuscular volume ) determinationOrdered By: Nay Greenwood on 02-25-2025 MCV (RBC) [Entitic vol] 96.0 fL 81-[address] [facility] Mean corpuscular hemoglobin (MCH) determinationOrdered By: Nay Greenwood on 02-25-2025 MCH (RBC) [Entitic mass] 33.5 pg High 27.0-32.0 [facility] Mean corpuscular hemoglobin concentration (MCHC) determinationOrdered By: Nay Greenwood on 02-25-2025 MCHC (RBC) [Mass/Vol] 34.9 g/dL 32-36 [facility] Mean platelet volume determi nationOrdered By: Nay Greenwood on 02-25-2025 Platelet mean volume (Bld) [Entitic vol] 9.3 fL 6.2-12.0 [facility] Platelet countOrdered By: Manan Greenwood on 02-25-2025 Platelets (Bld) [#/Vol] 280 10*3/uL 150-450 [facility] Potassium (Unsp spec) [Mass/ Vol]Ordered By: Nay Greenwood on 02-25-2025 Potassium [Moles/Vol] 4.3 mmol/L 3.3-5.1 [facility] RBC Auto (Bld) [#/Vol]Ordere d By: Nay Greenwood on 02-25-2025 RBC (Bld) [#/Vol] 3.46 10*6/uL Low 4.2-5.4 [facility] Serum creatinine measurement (mass/volume)Ordered By: Nay Greenwood on 02-25-2025 Creatinine [Mass/Vol] 0.79 mg/dL 0.70-1.20 [facility] Serum glucose measurement (m ass/volume)Ordered By: Nay Greenwood on 02-25-2025 Glucose [Mass/Vol] 106 mg/dL High 70-99 [facility] Serum or plasma calcium francois urement (mass/volume)Ordered By: Nay Greenwood on 02-25-2025 Calcium [Mass/Vol] 9.4 mg/dL 7.6-11.0 [facility] Serum or plasma urea nitroge n measurement (mass/volume)Ordered By: Nay Greenwood on 02-25-2025 Urea nitrogen [Mass/Vol] 11 mg/dL 4-19 [facility] Sodium levelOrdered By: Ele Greenwood on 02-25-2025 Sodium [Moles/Vol] 137 mmol/L 133-145 [facility] White blood cell (WBC) count Ordered By: Nay Greenwood on 02-25-2025 WBC (Bld) [#/Vol] 5.1 10*3/uL 4.4-11.0 [facility] 36on 02-22-2025 36 Patient's son Colton called back in on this message. Colton states that patient is in an extended care [place] facility and they are giving patient the antibiotic as prescribed. Colotn didn't have any further questions or concerns at this time. [facility] 36 Please inform patien t of result when Pt/son returns call. [facility] 36 ----- Message from ALONDRA Yap CNP sent at 02/22/2025 7:09 AM EDT ----- Let her know the antibiotic she is on should cover her UTI [facility] 36 LVM for patient to call office back. Please read TE to patient when call is returned. Thank you! [facility] 36 ----- Message from ALONDRA Yap CNP sent at 02/22/2025 7:09 AM EDT ----- Let her know the antibiotic she is on should cover her UTI [facility] 36on 02-20-2025 36 Scheduled 03/06/25 @09:20am [address] [facility] 36on 02-19-2025 36 Cysto, stent removal in 2 weeks [facility] No Panel Informationon 02-19 There is no [...] of instructions also given to son. [facility] Nursing Note Attempted to call [facility] at [phone] four times preop and was unable to speak with anyone on the phone to verify if patient took any medications this morning. Spoke with Mareila M., COMBINATION PRESSER to let know I was unable to verify any meds at this time. ERAS meds adjusted. [facility] Op Noteon 02-19-2025 Op Note PreOp Dx [...] could consider CVAC to clear debris [facility] URINE CULTUREon 03-25-2025 Bacteria identified Cx Nom (U) URINE CULTURE Reference Normal urogenital clarsise present ESCHERICHIA COLI >100,000 CFU/mL Escherichia coli [...] = Non-susceptible NO = No Interpretation ] [facility] Comment on above: Performed By: #### L AB239 #### Survey Researcher: JULIO KNIGHT ([id number]) [address] 36on 02-18-2025 36 Pt's son is aware of infection and antibiotics. See other TE. [facility] 36 ----- Message from Kiara Wayne PA-C sent at 02/18/2025 7:39 AM EDT ----- Please call the patient and let her know The urine culture results were positive for a urinary tract infection. Antibiotic therapy has been prescribed and sent to the pharmacy with appropriate instructions. Thank you. [facility] 36 Called pt's son, no answer, left message regarding surgery tomorrow and that is still planned. Asked to call the office back with any questions. [facility] 36 Call returned buy evaristo Blackwell . Advised of results and recommendations . Son will not be able to fruit picker medication until the end of the day . Pt is scheduled for surgery tomorrow . Please verify that surgery is still on even of patient receives only 2 doses of ordered Macrobid [facility] 36 LVM verbatim per VIANEY Lawson. For patient to call office back for results. [facility] 36 ----- Message from Kiara Wayne PA-C sent at 02/18/2025 7:39 AM EDT ----- Please call the patient and let her know The urine culture results were positive for a urinary tract infection. Antibiotic therapy has been prescribed and sent to the pharmacy with appropriate instructions. Thank you. [facility] ECG 12-LEADon 02-18-2025 ECG 12-LEAD IMPRESSION: Sinus rhythm Atrial premature complexes in couplets Left ventricular hypertrophy Inferior infarct, old Anterior infarct, old Electronically Signed On 02-18-2025 12:43:43 EDT by Victor M Lopez [facility] [id number] 02-15-2025 [id number] Medication List Accurate as of February 15, [...] SURGERY TIME: will notify virgil schaeffer before SITE:[address] Please use [employer] parking-will validate day of surgery SHOWER WITH [...] SPECIFIC QUESTIONS, PLEASE CALL YOUR SURGEON [facility] BASIC METABOLIC PANELon 03-2 Anion gap [Moles/Vol] 8 mmol/L Normal 3-13 [facility] Comment on above: Performed By: #### L AB15 ####Survey Researcher: JULIO KNIGHT ([id number])[facility] ([facility])[address] [place] [address] Calcium [Mass/Vol] 9.7 mg/dL Normal 8.8-10.0 [facility] Comment on above: Performed By: #### L AB15 ####Survey Researcher: JULIO KNIGHT ([id number])[facility] ([facility])[address] [place] [address] Chloride [Moles/Vol] 107 mmol/L Normal 98-107 [facility] Comment on above: Performed By: #### L AB15 ####Survey Researcher: JULIO KNIGHT ([id number])[facility] ([facility])[address] [place] [address] CO2 [Moles/Vol] 23 mmol/L Normal 23-31 [facility] Comment on above: Performed By: #### L AB15 ####Survey Researcher: JULIO KNIGHT ([id number])[facility] ([facility])[address] [place] [address] Creatinine [Mass/Vol] 0.70 mg/dL Normal 0.57-1.11 [facility] Comment on above: Performed By: #### L AB15 ####Survey Researcher: JULIO KNIGHT ([id number])[facility] ([facility])[address] [place] [address] [place] GLOMERULAR FILTRATION RATE ML/MIN/1.73 SQ M.PREDICTED 89.2 mL/min/1.73m*2 Normal >60.0 [facility] Comment on above: Result Comment: Calc ulation based on the Chronic Kidney Disease Epidemiology Collaboration (CKD-EPI) equation refit without adjustment for race Performed By: #### L AB15 ####Survey Researcher: JULIO KNIGHT ([id number])[facility] ([facility])[address] [place] [address] Glucose [Mass/Vol] 83 mg/dL Normal 82-115 [facility] Comment on above: Performed By: #### L AB15 ####Survey Researcher: JULIO KNIGHT ([id number])[facility] ([facility])[address] [place] [address] Potassium [Moles/Vol] 4.1 mmol/L Normal 3.5-5.1 [facility] Comment on above: Result Comment: [facility] potassium values may be up to 0.5 mmol/L lower than serum values. Performed By: #### L AB15 ####Survey Researcher: JULIO KNIGHT ([id number])[facility] ([facility])[address] [place] [address] Sodium [Moles/Vol] 138 mmol/L Normal 136-145 [facility] Comment on above: Performed By: #### L AB15 ####Survey Researcher: JULIO KNIGHT ([id number])[facility] ([facility])[address] [place] [address] Urea nitrogen [Mass/Vol] 15 mg/dL Normal 9-23 [facility] Comment on above: Performed By: #### L AB15 ####Survey Researcher: JULIO KNIGHT ([id number])[facility])[address] [place] [address] CBC (HEMOGRAM)on 02-15-2025 Erythrocyte distribution width (RBC) [Ratio] 14.3 % Normal 11.5-15.0 [facility] Comment on above: Performed By: #### L AB294 ####Survey Researcher: JULIO KNIGHT ([id number])[facility])[address] [place] [address] Hematocrit (Bld) [Volume fraction] 37.5 % Normal 35.0-47.0 [facility] Comment on above: Performed By: #### L AB294 ####Survey Researcher: JULIO KNIGHT ([id number])[facility])[address] [place] [address] Hemoglobin (Bld) [Mass/Vol] 12.7 g/dL Normal 11.7-16.0 [facility] Comment on above: Performed By: #### L AB294 ####Survey Researcher: JULIO KNIGHT ([id number])[facility])[address] [place] [address] MCH (RBC) [Entitic mass] 33.1 pg Normal 26.0-34.0 [facility] Comment on above: Performed By: #### L AB294 ####Survey Researcher: JULIO KNIGHT ([id number])[facility])[address] [place] [address] MCHC 33.9 % Normal 30.5-36.0 [facility] Comment on above: Performed By: #### L AB294 ####Survey Researcher: JULIO KNIGHT ([id number])[facility] ([facility])[address] [place] [address] MCV (RBC) [Entitic vol] 97.7 fL Normal 77.0-99.[address] [facility] Comment on above: Performed By: #### L AB294 ####Survey Researcher: JULIO KNIGHT ([id number])[facility])[address] [place] [address] Platelet mean volume (Bld) [Entitic vol] 9.4 fL Normal 9.0-12.7 [facility] Comment on above: Performed By: #### L AB294 ####Survey Researcher: JULIO KNIGHT ([id number])[facility] ([facility])[address] [place] [address] [place] Platelets (Bld) [#/Vol] 284 10*3/uL Normal 140-440 [facility] Comment on above: Performed By: #### L AB294 ####Survey Researcher: JULIO KNIGHT ([id number])[facility])[address] [place] [address] RBC (Bld) [#/Vol] 3.84 10*6/uL Normal 3.80-5.20 [facility] Comment on above: Performed By: #### L AB294 ####Survey Researcher: JULIO KNIGHT ([id number])[facility])[address] [place] [address] WBC (Bld) [#/Vol] 5.6 10*3/uL Normal 3.6-10.7 [facility] Comment on above: Performed By: #### L AB294 ####Survey Researcher: JULIO KNIGHT ([id number])[facility] ([facility])[address] [place] [address] Progress Noteon 02-15-2025 Progress Note ADVANCED CARE [...] - DO NOT do CPR, intubation] [_] [DNR-SENSORY SCIENTIST - Comfort care only] [_] DNR form [...] patient and/or family/surrogate. Sana Crowder APRN - WAREHOUSE WORKER [employer] 02/15/2025, 11:22 AM [facility] URINE CULTUREon 02-15-2025 Bacteria identified Cx Nom [...] = Non-susceptible NO = No Interpretation ] [facility] Comment on above: Performed By: #### L AB239 ####Survey Researcher: JULIO KNIGHT ([id number])[address] 36on 02-13-2025 36 Spoke to pts son about upcoming PAT 02/15/2025 and surgery 02/19/2025 at [facility] Doctor: Rachel HENDRICKS (arrive 15 min [...] counter vitamins 3 days prior to surgery [facility] 36 Lvm to discuss upcoming PAT and surgery instructions [facility] 37on 02-07-2025 37 [facility]- [facility]rology [address] [place] [address] Ph. Kidney Stone Diet Instructions What is [...] diet. You may need to see a home health registered nurse to help make some of these changes. [...] Chicken Noodle Soup (dried) Coffee Cola beverages Fallon/ cornbread [place] Lettuce Buitrago Beans Marmalade Oranges [place] Parsnips Peaches Pears Peas Pepper Pineapple Plums Prunes Sardines Soy Products Sponge Cake Tomatoes Tomato juice Turnip Watercress Beans Beer Beets Blackberries Black and Red Raspberries Blueberries Celery Chard Chocolate [place] Coffee Powder Collards [place] Grapes Crackers made from Soy Flour Currants Dandelion Greens Eggplant Escarole Fruit Cake Fruit Salad (canned) Green Chan Pepper Grits Juices containing berries Kale Leeks Lemon and Little Shell Tribe Peel Nuts (peanuts and pecans) Okra Ovaltine Parsley Pokeweed Rhubarb Rutabagas Spinach Strawberri (more content not included)... [facility] Office Visiton 02-07-2025 Follow-up visit [id number] Surinder Rasheed 1950 F Date Provider Department Center 02/07/2025 [id number] WAYNE [facility] U[facility] None No family history on file Level of Service:90365 [place] OFFICE/OUTPATIENT ESTABLISHED MOD MDM 30 MIN Reason for Visit and Comments: Follow-up [432096] - Follow up - pt denies issues, pain, distress or discomfort currently [facility] Progress Noteon 02-07-2025 Progress Note Kiara Wayne, [...] Light-Yellow 09/17/2022 GLUCOSEUR (more content not included)... [facility] Progress Note Please call the patient and let her know The urine culture results were positive for a urinary tract infection. Antibiotic therapy has been prescribed and sent to the pharmacy with appropriate instructions. Thank you. [facility] 36on 02-05-2025 36 Spoke with patient's sonmolly Blackwell and given Chad's message verbatim. Colton verbalized understanding and have no further questions or concerns at this time. Patient will see Kiara on 02/07/2025 . [facility] 36 Attempted to contact patient to give Chad's message verbatim. LVM for patient to call the office. [facility] 36 ----- Message from Chad HodgesALONDRA CNP sent at 02/04/2025 5:08 PM EDT ----- Please let patient know her CT scan shows she does have some stones in her kidneys, but they are not causing any blockages at this time. Please also remind patient of her upcoming appointment with Kiara Wayne PA-C on 02-07-25. Thank you [facility] TSH DL <= 0.005 mIU/L QnOrde red By: Nay Greenwood on 02-04-2025 Thyroid Stimulating Hormone (TSH) 3.160 uIU/mL 0.300-4.200 [facility] Thyroid Stim Hormone (TSH)on 02-04-2025 TSH 3.160 uIU/mL Normal 0.300-4.200 [facility] Comment on above: Order Comment: 136 Performed By: #### L 501.9520, L500.4050, L100.0100, L501.5200 #### [facility] [address] [place], [address] CT ABDOMEN PELVIS WO IV CONT [facility] 01-30-2025 CT ABDOMEN PELVIS WO [...] no current complaints, pt poor historian [facility] CT Abdomen and Pelvis WO con traston 01-30-2025 1. Bilateral renal calculi, larger in size and number on the right. No hydroureteronephrosis . 2. Cholecystolithiasis. 3. Colonic diverticulosis. 4. Moderate stool throughout the colon. Consider constipation. 5. Mildly dilated pancreatic duct due to chronic pancreatitis. Report Dictated on Electronically Signed By: Vijay Coles MD Electronically Signed Date/Time: 01/30/2025 8:19 AM [employer] [facility] Patient Name: SURINDER RASHEED : [...] LYMPH NODES: Unremarkable. No enlarged lymph nodes. [facility] Vijay Coles MD - 01/30/2025 [...] Electronically Signed Date/Time: 01/30/2025 8:19 AM EST [employer] CT Abdomen and Pelvis WO con trastOrdered By: Vijay Coles on 01-30-2025 [facility] [employer] Work Phone: CT Abdomen and Pelvis WO con traston 01-29-2025 Radiology Study observation (narrative) [facility] Markus alth 36on 01-18-2025 36 Your patient has bee n scheduled for their CT on 01/29/2025 at 4:15pm. If testing requires an insurance authorization, the authorization must be in place 48 hours prior to the scheduled test or testing will be cancelled. Thank you, [facility] [phone] [facility] Brain/Head without Contrasto n 12-28-2024 Brain/Head without Contrast [facility] [address] [place] [address] Brain/Head without Contrast MR#: [id number] Acct: [id number] Name: SURINDER RASHEED Rep #: [id number] : 1950 F 74 From: Ayden Wright MD PCP: Nay Greenwood MD Status: REG ER Study: Brain/Head without Contrast Date of Exam: 11/30 12/22 Exam# [id number] Ordering Dr: Yunior Zaldivar PROSPECTING DRILLER-C PROCEDURE: BRAIN/HEAD WITHOUT CONTRAST; SPINE CERVICAL WITHOUT [...] use of iterative reconstruction technique). Reading Location: [facility] CC: JEANNETTE Zaldivar; Nay Greenwood MD Care Management Coordinator: Signed Normal [facility] Emergency Department Summary on 12-28-2024 Emergency Department Summary [facility] Medical Records Department [address] [place] [address] Emergency Department Summary 12/28/24 MR#: [id number] Acct: [id number] Name: SURINDER RASHEED Rep #: [id number] : 1950 74 From: Yunior MACHADO PCP: Nay Greenwood MD Status:DEP ER Location: ED HPI History of Present Illness Chief Complaint: Fall Narrative Narrative: Patient is a 74-year-old female with history of dementia, hyperlipidemia, anxiety, hypertension who presents to the [facility] for evaluation after sustaining a head injury. [...] her head. Denies any other injury. [facility] Medical History (Updated 12/28/24 @ 18:15 by [...] Vicodin) promethazine AdvReac Other Verified 12/28/24 16:54 Dmiblle-ZML-AoX Reductase AdvReac Pain in Verified 12/28/24 16:54 Inhibitor (Oaxpfzw-Jte-Zrl joints Reductase Inhibitor) Family History Father Heart [...] No hepatos (more content not included)... [facility] Spine Cervical without Contr ason 12-28-2024 Spine Cervical without Contras [facility] [address] [place], [place] [address] Spine Cervical without Contras MR#: [id number] Acct: [id number] Name: SURINDER RASHEED Rep #: [id number] : 1950 F 74 From: Ayden Wright MD PCP: Nay Greenwood MD Status: REG ER Study: Spine Cervical without Contras Date of Exam: 0 12/28/24 Exam# [id number] Ordering Dr: Yunior Zaldivar PROCEDURE: BRAIN/HEAD WITHOUT [...] use of iterative reconstruction technique). Reading Location: [facility] CC: JEANNETTE Zaldivar; Nay Greenwood MD Care Management Coordinator: Signed Normal [facility] TSH QnOrdered By: Nay rust on 12-14-2024 Thyroid Stimulating Hormone (TSH) 3.880 uIU/mL High 0.358-3.740 [facility] Thyroid Stim Hormone (TSH)on 12-14-2024 TSH 3.880 uIU/mL High 0.358-3.740 [facility] Comment on above: Order Comment: 136 Performed By: #### L 501.9520 #### [facility] [address] [place], [address] Urine Cultureon 12-13-2024 URC Below infection level. Mixed Gram Pos Gram Neg Org [place] Count <1000 MIXC Mixed contaminants. Submit a new specimen if indicated. [facility] Comment on above: Performed By: #### M 100.2200, L400.0001 #### [facility] [address] [place], [address] Urinalysis, Completeon 12-11 BACTERIA RARE Normal None Seen [facility] Comment on above: Order Comment: CLEAN CATCH Performed By: #### M 100.2200, L400.0001 #### [facility] [address] [place], [address] EPI,SQUAMOUS 0-5 SEEN Normal 5-10 [facility] Comment on above: Order Comment: CLEAN CATCH Performed By: #### M 100.2200, L400.0001 #### [facility] [address] [place], [address] WBC 50-100 SEEN Normal 0-5 [facility] Comment on above: Order Comment: CLEAN CATCH Performed By: #### M 100.2200, L400.0001 #### [facility] [address] [place], [address] Mucus Ql (Urine sed) 0 SEEN Normal [facility] Comment on above: Order Comment: CLEAN CATCH Performed By: #### M 100.2200, L400.0001 #### [facility] [address] [place], [address] RBC 0 SEEN Normal 0-5 [facility] Comment on above: Order Comment: CLEAN CATCH Performed By: #### M 100.2200, L400.0001 #### [facility] [address] [place], [address] Bacteria LM.HPF (Urine sed) [#/Area]Ordered By: Nay Greenwood on 12-10-2024 Urine Bacteria RARE /hpf None Seen [facility] Bilirubin Test strip Ql (U)O rdered By: Nay Greenwood on 12-10-2024 Bilirubin Ql (U) Negative Negative [facility] Epithelial cells.squamous LM Ql (Urine sed)Ordered By: Nay Greenwood on 12-10-2024 Epithelial cells.squamous LM.HPF (Urine sed) [#/Area] 0 /[HPF] 5-10 [facility] Glucose Ql (U)Ordered By: Manan Greenwood on 12-10-2024 Urine Glucose (UA) Normal mg/dl Normal [facility] Ketones Test strip Ql (U)Ord ered By: Nay Greenwood on 12-10-2024 Ketones Ql (U) Negative Negative [facility] Microscopic analysis of urin e for red blood cells (RBC)Ordered By: Nay Greenwood on 12-10-2024 Urine RBC 0 SEEN /hpf 0-5 [facility] Mucus LM Ql (Urine sed)Order ed By: Nay Greenwood on 12-10-2024 Mucus Ql (Urine sed) 0 SEEN /hpf [facility] Nitrite Test strip Ql (U)Ord ered By: Nay Greenwood on 12-10-2024 Nitrite Ql (U) Negative Negative [facility] Protein Test strip Ql (U)Ord ered By: Nay Greenwood on 12-10-2024 Protein Ql (U) 15 mg/dl High Negative [facility] Urine blood detectionOrdered By: Nay Greenwood on 12-10-2024 Urine Occult Blood 25 /ul High Negative [facility] Urine clarityOrdered By: Rhett Greenwood on 12-10-2024 Clarity (U) Cloudy Clear [facility] Urine color determinationOrd ered By: Nay Greenwood on 12-10-2024 Color (U) Yellow Yellow [facility] Urine cultureOrdered By: Rhett Greenwood on 12-10-2024 Bacteria identified Cx Nom (U) Mixed Gram Pos & Gram Neg Org Abnormal [facility] Urine leukocyte esterase det ection by dipstickOrdered By: Nay Greenwood on 12-10-2024 Leukocyte esterase Test strip Ql (U) 500 /ul High Negative [facility] Urine pHOrdered By: Nay Steiner udla on 12-10-2024 pH (U) 6.5 [pH] 5.0 - 8.0 [facility] Urine specific gravity measu rementOrdered By: Nay Greenwood on 12-10-2024 Specific gravity (U) [Rel density] 1.010 1.002-1.030 [facility] Urobilinogen Ql (U)Ordered B y: Nay Greenwood on 12-10-2024 Urine Urobilinogen Normal mg/dl Normal [facility] White blood cell countOrdere d By: Nay Greenwood on 12-10-2024 Urine WBC 50-100 SEEN /hpf 0-5 [facility] Absolute neutrophil countOrd ered By: Nay Greenwood on 12-03-2024 Neutrophils (Bld) [#/Vol] 2.6 10*3/uL 2.0-7.7 [facility] Albumin to globulin ratioOrd ered By: Nay Greenwood on 12-03-2024 Albumin/Globulin [Mass ratio] 0.8 {ratio} Low 0.9-2.4 [facility] Basophil percentageOrdered B y: Nay Greenwood on 12-03-2024 Basophils/100 WBC (Bld) 0.4 % 0-[address] [facility] Bilirubin, totalOrdered By: Nay Greenwood on 12-03-2024 Bilirubin [Mass/Vol] 0.60 mg/dL 0.20-1.00 [facility] Comment on above: For patients on eltr ombopag therapy, use of Dimension Bluebell TBIL is not recommended. Blood urea nitrogen (BUN)/cr eatinine ratioOrdered By: Nay Greenwood on 12-03-2024 Urea nitrogen/Creatinine [Mass ratio] 18.5 mg/mg 10-20 [facility] CBC W/Diff, Automatedon Absolute Lymph 1.49 X10 3/uL Normal 0.83-4.51 [facility] Comment on above: Order Comment: 136 Performed By: #### L 501.9520, L500.4050, L100.0100, L501.5200 #### [facility] [address] [place], [address] Absolute Neut 2.6 X10 3/uL Normal 2.0-7.7 [facility] Comment on above: Order Comment: 136 Performed By: #### L 501.9520, L500.4050, L100.0100, L501.5200 #### [facility] [address] [place], [address] Basophils/100 WBC (Bld) 0.4 % Normal 0-[address] [facility] Comment on above: Order Comment: 136 Performed By: #### L 501.9520, L500.4050, L100.0100, L501.5200 #### [facility] [address] [place], [address] Eosinophils/100 WBC (Bld) 1.7 % Normal 0-5 [facility] Comment on above: Order Comment: 136 Performed By: #### L 501.9520, L500.4050, L100.0100, L501.5200 #### [facility] [address] [place], [address] Erythrocyte distribution width (RBC) [Ratio] 13.0 % Normal 11.6-14.6 [facility] Comment on above: Order Comment: 136 Performed By: #### L 501.9520, L500.4050, L100.0100, L501.5200 #### [facility] [address] [place], [address] Hematocrit (Bld) [Volume fraction] 37.6 % Normal 37-47 [facility] Comment on above: Order Comment: 136 Performed By: #### L 501.9520, L500.4050, L100.0100, L501.5200 #### [facility] [address] [place], [address] Hemoglobin (Bld) [Mass/Vol] 12.7 g/dL Normal 12.0-15.0 [facility] Comment on above: Order Comment: 136 Performed By: #### L 501.9520, L500.4050, L100.0100, L501.5200 #### [facility] [address] [place], [address] IG% 0.400 Normal 0.0-0.9 [facility] Comment on above: Order Comment: 136 Result Comment: IG% - Immature Granulocytes (promyelocytes, myelocytes and metamyelocytes) > 1% indicates that a LEFT SHIFT is Present. Performed By: #### L 501.9520, L500.4050, L100.0100, L501.5200 #### [facility] [address] [place], [address] Lymphocytes/100 WBC (Bld) 31.5 % Normal 19-41 [facility] Comment on above: Order Comment: 136 Performed By: #### L 501.9520, L500.4050, L100.0100, L501.5200 #### [facility] [address] [place], [address] MCH (RBC) [Entitic mass] 32.2 pg High 27.0-32.0 [facility] Comment on above: Order Comment: 136 Performed By: #### L 501.9520, L500.4050, L100.0100, L501.5200 #### [facility] [address] [place], [address] MCHC (RBC) [Mass/Vol] 33.8 g/dL Normal 32-36 [facility] Comment on above: Order Comment: 136 Performed By: #### L 501.9520, L500.4050, L100.0100, L501.5200 #### [facility] [address] [place], [address] MCV (RBC) [Entitic vol] 95.4 fL Normal 81-[address] [facility] Comment on above: Order Comment: 136 Performed By: #### L 501.9520, L500.4050, L100.0100, L501.5200 #### [facility] [address] [place], [address] Monocytes/100 WBC (Bld) 10.6 % High 0-[address] [facility] Comment on above: Order Comment: 136 Performed By: #### L 501.9520, L500.4050, L100.0100, L501.5200 #### [facility] [address] [place], [address] Neutrophils/100 WBC (Bld) 55.4 % Normal 47-70 [facility] Comment on above: Order Comment: 136 Performed By: #### L 501.9520, L500.4050, L100.0100, L501.5200 #### [facility] [address] [place], [address] Nucleated RBC (Bld) [#/Vol] 0 10*3/uL Normal 0-5 [facility] Comment on above: Order Comment: 136 Performed By: #### L 501.9520, L500.4050, L100.0100, L501.5200 #### [facility] [address] [place], [address] Platelet mean volume (Bld) [Entitic vol] 9.2 fL Normal 6.2-12.0 [facility] Comment on above: Order Comment: 136 Performed By: #### L 501.9520, L500.4050, L100.0100, L501.5200 #### [facility] [address] [place], [address] Platelets (Bld) [#/Vol] 279 10*3/uL Normal 150-450 [facility] Comment on above: Order Comment: 136 Performed By: #### L 501.9520, L500.4050, L100.0100, L501.5200 #### [facility] [address] [place], [address] RBC (Bld) [#/Vol] 3.94 10*6/uL Low 4.2-5.4 [facility] Comment on above: Order Comment: 136 Performed By: #### L 501.9520, L500.4050, L100.0100, L501.5200 #### [facility] [address] [place], [address] RDW SD 46.1 fl High 35.1-43.9 [facility] Comment on above: Order Comment: 136 Performed By: #### L 501.9520, L500.4050, L100.0100, L501.5200 #### [facility] [address] [place], [address] WBC (Bld) [#/Vol] 4.7 10*3/uL Normal 4.4-11.0 [facility] Comment on above: Order Comment: 136 Performed By: #### L 501.9520, L500.4050, L100.0100, L501.5200 #### [facility] [address] [place], [address] Carbon dioxide measurementOr dered By: Nay Greenwood on 12-03-2024 CO2 [Moles/Vol] 23.0 mmol/L 21.0-32.0 [facility] Chloride measurementOrdered By: Nay Greenwood on 12-03-2024 Chloride [Moles/Vol] 109 mmol/L High 98-107 [facility] Comprehensive Metabolic Prof ilon 12-03-2024 Albumin [Mass/Vol] 3.0 g/dL Low 3.2-5.0 [facility] Comment on above: Order Comment: 136 Performed By: #### L 501.9520, L500.4050, L100.0100, L501.5200 #### [facility] [address] [place], [address] Albumin/Globulin [Mass ratio] 0.8 {ratio} Low 0.9-2.4 [facility] Comment on above: Order Comment: 136 Performed By: #### L 501.9520, L500.4050, L100.0100, L501.5200 #### [facility] [address] [place], [address] ALK P 73 U/L Normal 45-117 [facility] Comment on above: Order Comment: 136 Performed By: #### L 501.9520, L500.4050, L100.0100, L501.5200 #### [facility] [address] [place], [address] ALT [Catalytic activity/Vol] 29 U/L Normal 13-56 [facility] Comment on above: Order Comment: 136 Performed By: #### L 501.9520, L500.4050, L100.0100, L501.5200 #### [facility] [address] [place], [address] AST [Catalytic activity/Vol] 31 U/L Normal 15-37 [facility] Comment on above: Order Comment: 136 Performed By: #### L 501.9520, L500.4050, L100.0100, L501.5200 #### [facility] [address] [place], [address] Bilirubin [Mass/Vol] 0.60 mg/dL Normal 0.20-1.00 [facility] Comment on above: Order Comment: 136 Result Comment: For patients on eltrombopag therapy, use of Dimension Bluebell TBIL is not recommended. Performed By: #### L 501.9520, L500.4050, L100.0100, L501.5200 #### [facility] [address] [place], [address] BUN/CRE 18.5 RATIO Normal 10-20 [facility] Comment on above: Order Comment: 136 Performed By: #### L 501.9520, L500.4050, L100.0100, L501.5200 #### [facility] [address] [place], [address] CA,Total 9.3 mg/dL Normal 8.5-10.1 [facility] Comment on above: Order Comment: 136 Performed By: #### L 501.9520, L500.4050, L100.0100, L501.5200 #### [facility] [address] [place], [address] Chloride [Moles/Vol] 109 mmol/L High 98-107 [facility] Comment on above: Order Comment: 136 Performed By: #### L 501.9520, L500.4050, L100.0100, L501.5200 #### [facility] [address] [place], [address] CO2 [Moles/Vol] 23.0 mmol/L Normal 21.0-32.0 [facility] Comment on above: Order Comment: 136 Performed By: #### L 501.9520, L500.4050, L100.0100, L501.5200 #### [facility] [address] [place], [address] Creatinine [Mass/Vol] 0.76 mg/dL Normal 0.55-1.02 [facility] Comment on above: Order Comment: 136 Result Comment: The validity of the calculated GFR GFRAA in patients over 70 years has not been determined. Clinical correlation is essential. Performed By: #### L 501.9520, L500.4050, L100.0100, L501.5200 #### [facility] [address] [place], [address] EST GFR - AA 95 mL/min Normal >60 [facility] Comment on above: Order Comment: 136 Result Comment: Afri can Albanian GFR Calc Performed By: #### L 501.9520, L500.4050, L100.0100, L501.5200 #### [facility] [address] [place], [address] GAP 5 Normal 5-15 [facility] Comment on above: Order Comment: 136 Performed By: #### L 501.9520, L500.4050, L100.0100, L501.5200 #### [facility] [address] [place], [address] GFR/1.73 sq M.predicted among non-blacks MDRD (S/P/Bld) [Vol rate/Area] 79 mL/min/{1.73_m2} Normal >60 [facility] Comment on above: Order Comment: 136 Result Comment: Non- GFR Calc Performed By: #### L 501.9520, L500.4050, L100.0100, L501.5200 #### [facility] [address] [place], [address] Globulin (S) [Mass/Vol] 3.9 g/dL Normal 2.2-4.2 [facility] Comment on above: Order Comment: 136 Performed By: #### L 501.9520, L500.4050, L100.0100, L501.5200 #### [facility] [address] [place], [address] Glucose [Mass/Vol] 99 mg/dL Normal 74-106 [facility] Comment on above: Order Comment: 136 Performed By: #### L 501.9520, L500.4050, L100.0100, L501.5200 #### [facility] [address] [place], [address] Potassium [Moles/Vol] 4.0 mmol/L Normal 3.5-5.1 [facility] Comment on above: Order Comment: 136 Performed By: #### L 501.9520, L500.4050, L100.0100, L501.5200 #### [facility] [address] [place], [address] Sodium [Moles/Vol] 137 mmol/L Normal 136-145 [facility] Comment on above: Order Comment: 136 Performed By: #### L 501.9520, L500.4050, L100.0100, L501.5200 #### [facility] [address] [place], [address] T PROT 6.9 g/dL Normal 6.4-8.2 [facility] Comment on above: Order Comment: 136 Performed By: #### L 501.9520, L500.4050, L100.0100, L501.5200 #### [facility] [address] [place], [address] Urea nitrogen [Mass/Vol] 14 mg/dL Normal 7-18 [facility] Comment on above: Order Comment: 136 Performed By: #### L 501.9520, L500.4050, L100.0100, L501.5200 #### [facility] [address] [place], [address] Eosinophil percentageOrdered By: Nay Greenwood on 12-03-2024 Eosinophils/100 WBC (Bld) 1.7 % 0-5 [facility] Erythrocyte distribution wid th (RBC) [Ratio]Ordered By: Nay Greenwood on 12-03-2024 Erythrocyte distribution width (RBC) [Entitic vol] 46.1 fL High 35.1-43.9 [facility] Erythrocyte distribution wid th ratioOrdered By: Nay Greenwood on 12-03-2024 Erythrocyte distribution width (RBC) [Ratio] 13.0 % 11.6-14.6 [facility] Estimated glomerular filtrat ion rate (GFR) AmericanOrdered By: Nay Greenwood on 12-03-2024 Estimated GFR (MDRD) Amer 95 mL/min >60 [facility] Comment on above: GFR Calc Glomerular filtration rate ( GFR) estimationOrdered By: Nay Greenwood on 12-03-2024 Estimated GFR (MDRD) Non-Af Amer 79 mL/min >60 [facility] Comment on above: Non- GFR Calc Glucose measurementOrdered B y: Nay Greenwood on 12-03-2024 Glucose [Mass/Vol] 99 mg/dL 74-106 [facility] Hematocrit Auto (Bld) [Volum e fraction]Ordered By: Nay Greenwood on 12-03-2024 Hematocrit (Bld) [Volume fraction] 37.6 % 37-47 [facility] Hemoglobin measurementOrdere d By: Nay Greenwood on 12-03-2024 Hemoglobin (Bld) [Mass/Vol] 12.7 g/dL 12.0-15.0 [facility] Immature granulocytes/100 WB C Auto (Bld)Ordered By: Nay Greenwood on 12-03-2024 Immature granulocytes/100 WBC (Bld) 0.400 % 0.0-0.9 [facility] Comment on above: IG% - Immature Granu locytes (promyelocytes, myelocytes and metamyelocytes) > 1% indicates that a LEFT SHIFT is Present. Laboratory - Chemistry and C hemistry - challengeOrdered By: Nay Greenwood on 12-03-2024 AST [Catalytic activity/Vol] 31 U/L 15-37 [facility] Lymphocytes Auto (Unsp spec) [#/Vol]Ordered By: Nay Greenwood on 12-03-2024 Lymphocytes (Bld) [#/Vol] 1.49 10*3/uL 0.83-4.51 [facility] Lymphocytes/100 WBC Auto (Un sp spec)Ordered By: Nay Greenwood on 12-03-2024 Lymphocytes/100 WBC (Bld) 31.5 % 19-41 [facility] MCV (mean corpuscular volume ) determinationOrdered By: Nay Greenwood on 12-03-2024 MCV (RBC) [Entitic vol] 95.4 fL 81-[address] [facility] Mean corpuscular hemoglobin (MCH) determinationOrdered By: Nay Greenwood on 12-03-2024 MCH (RBC) [Entitic mass] 32.2 pg High 27.0-32.0 [facility] Mean corpuscular hemoglobin concentration (MCHC) determinationOrdered By: Nay Greenwood on 12-03-2024 MCHC (RBC) [Mass/Vol] 33.8 g/dL 32-36 [facility] Mean platelet volume determi nationOrdered By: Nay Greenwood on 12-03-2024 Platelet mean volume (Bld) [Entitic vol] 9.2 fL 6.2-12.0 [facility] Monocyte percentageOrdered B y: Nay Greenwood on 12-03-2024 Monocytes/100 WBC (Bld) 10.6 % High 0-[address] [facility] Neutrophil percentageOrdered By: Nay Greenwood on 12-03-2024 Neutrophils/100 WBC (Bld) 55.4 % 47-70 [facility] Nucleated red blood cell per centageOrdered By: Nay Greenwood on 12-03-2024 Nucleated RBC/100 WBC (Bld) [Ratio] 0 % 0-5 [facility] Platelet countOrdered By: Manan Greenwood on 12-03-2024 Platelets (Bld) [#/Vol] 279 10*3/uL 150-450 [facility] Potassium measurementOrdered By: Nay Greenwood on 12-03-2024 Potassium [Moles/Vol] 4.0 mmol/L 3.5-5.1 [facility] RBC Auto (Bld) [#/Vol]Ordere d By: Nay Greenwood on 12-03-2024 RBC (Bld) [#/Vol] 3.94 10*6/uL Low 4.2-5.4 [facility] Serum anion gap measurementO rdered By: Nay Greenwood on 12-03-2024 Anion gap [Moles/Vol] 5 mmol/L 5-15 [facility] Serum globulin measurementOr dered By: Nay Greenwood on 12-03-2024 Globulin (S) [Mass/Vol] 3.9 g/dL 2.2-4.2 [facility] Serum or plasma alanine barclay otransferase (ALT) measurementOrdered By: Nay Greenwood on 12-03-2024 ALT [Catalytic activity/Vol] 29 U/L 13-56 [facility] Serum or plasma albumin francois urement (mass/volume)Ordered By: Nay Greenwood on 12-03-2024 Albumin [Mass/Vol] 3.0 g/dL Low 3.2-5.0 [facility] Serum or plasma alkaline anitha sphatase measurementOrdered By: Nay Gerenwood on 12-03-2024 ALP [Catalytic activity/Vol] 73 U/L 45-117 [facility] Serum or plasma calcium francois urement (mass/volume)Ordered By: Nay Greenwood on 12-03-2024 Calcium [Mass/Vol] 9.3 mg/dL 8.5-10.1 [facility] Serum or plasma creatinine m easurement (mass/volume)Ordered By: Nay Greenwood on 12-03-2024 Creatinine [Mass/Vol] 0.76 mg/dL 0.55-1.02 [facility] Comment on above: The validity of the calculated GFR & GFRAA in patients over 70 years has not been determined. Clinical correlation is essential. Serum or plasma urea nitroge n measurement (mass/volume)Ordered By: Nay Greenwood on 12-03-2024 Urea nitrogen [Mass/Vol] 14 mg/dL 7-18 [facility] Sodium levelOrdered By: Ele Greenwood on 12-03-2024 Sodium [Moles/Vol] 137 mmol/L 136-145 [facility] Total proteinOrdered By: Rhett Greenwood on 12-03-2024 Protein [Mass/Vol] 6.9 g/dL 6.4-8.2 [facility] White blood cell (WBC) count Ordered By: Nay Greenwood on 12-03-2024 WBC (Bld) [#/Vol] 4.7 10*3/uL 4.4-11.0 [facility] Thyroid Stim Hormone (TSH)on 10-17-2024 TSH 5.310 uIU/mL High 0.358-3.740 [facility] Comment on above: Performed By: #### L 501.9520, L500.4050, L100.0100, L501.5200 #### [facility] [address] [place], [place], [address] Vitamin D,25 Hydroxyon 10-17 Vitamin D 25-OH 25.3 ng/mL Normal [facility] Comment on above: Order Comment: 136 Result Comment: Sherry min D 25(OH) Status Range Deficiency <20 ng/mL (50nmol/L) Insufficiency 20 - 30 ng/mL (50 - 75 nmol/L) Sufficiency 30 - 100 ng/mL (75 - 250 nmol/L) Toxicity >100 ng/mL (>250 nmol/L) Performed By: #### L 501.9512, L500.4050, L100.0100, L501.5200 #### [facility] [address] [place], [place], [address] UDRUGon 03-23-2024 Amphetamine (u) Negative Normal Negative [facility] ([place]) Comment on above: Performed By: #### U DRUG #### [place] [address] [address] Barbiturate (u) Negative Normal Negative [facility] ([place]) Comment on above: Performed By: #### U DRUG #### [place] [address] [address] Benzodiazepine (u) Negative Normal Negative [facility] ([place]) Comment on above: Performed By: #### U DRUG #### [id number] [place], [place] [address] Cannabinoid (u) Negative Normal Negative [facility] ([place]) Comment on above: Performed By: #### U DRUG #### [place] [address] [place], [place] [address] Cocaine Ql (U) Negative Normal Negative [facility] ([place]) Comment on above: Performed By: #### U DRUG #### [place] [address] [address] Methadone Ql (U) Negative Normal Negative [facility] ([place]) Comment on above: Performed By: #### U DRUG #### [place] [address] [address] [place], [place] [address] Opiate (u) Negative Normal Negative [facility] ([place]) Comment on above: Performed By: #### U DRUG #### [address] [address] PCP (u) Negative Normal Negative [facility] ([place]) Comment on above: Performed By: #### U DRUG #### [address] [address] Urine Drugs screened: See Below Normal [facility] ([place]) Comment on above: Result Comment: This drug [...] Performed By: #### U DRUG #### [place] [address] [address] MRI BRAIN W/O CONTRASTon MRI BRAIN W/O [...] 02/10/2024 11:53:58 AM Ordering Provider: STACEY Roblero [facility] ([place]) No Panel Informationon 02-05 Mild to moderate [...] Electronically Signed Date/Time: 02/06/2024 4:19 PM EDT [facility] Patient Name: SURINDER RASHEED : 1950 [...] high grade obstruction greater than 20 minutes). [facility] Pb Stoddard MD - 02/06/2024 Patient [...] Electronically Signed Date/Time: 02/06/2024 4:19 PM EDT [facility] Radiology Study observation (narrative) [facility] No Panel InformationOrdered By: Pb Stoddard on 02-06-2024 [facility] .Urinalysis Microscopic (AO) on 01-13-2024 UA Bacteria Trace Abnormal [facility] ([place]) Comment on above: Performed By: #### B MP, TSH, FT4, FT3, GFR #### [address] [address] UA RBC 10-15 Abnormal None Seen [facility] ([place]) Comment on above: Performed By: #### B MP, TSH, FT4, FT3, GFR #### [address] [place], [place] [address] UA Squam Epithelial 0-5 Abnormal None [facility] [facility] ([place]) Comment on above: Performed By: #### B MP, TSH, FT4, FT3, GFR #### [address] [place], [place] [address] UA WBC 10-15 Abnormal None Seen [facility] ([place]) Comment on above: Performed By: #### B MP, TSH, FT4, FT3, GFR #### [address] [place], [place] [address] CEFTAZIDIME:SUSC:PT:ISOLATE: ORDQN:MICon 01-13-2024 cefTAZidime MEGGAN [Susc] >100,000 cfu/ml Pseudomonas aeruginosa [facility] Work Phone: LABORATORYOrdered By: Venessa Haywood on [...] SS UAon 01-13-2024 Color (U) Yellow Normal [facility] ([place]) Comment on above: Performed By: #### B MP, TSH, FT4, FT3, GFR #### [address] [address] Glucose (U) [Mass/Vol] Negative Normal Negative [facility] ([place]) Comment on above: Performed By: #### B MP, TSH, FT4, FT3, GFR #### [address] [address] Ketones Ql (U) Negative Normal Negative [facility] ([place]) Comment on above: Performed By: #### B MP, TSH, FT4, FT3, GFR #### [address] [address] UA Appear Clear Normal Clear [facility] ([place]) Comment on above: Performed By: #### B MP, TSH, FT4, FT3, GFR #### [address] [address] UA Blood Moderate Abnormal Negative [facility] ([place]) Comment on above: Performed By: #### B MP, TSH, FT4, FT3, GFR #### [address] [address] UA Leuk Est Moderate Abnormal Negative [facility] ([place]) Comment on above: Performed By: #### B MP, TSH, FT4, FT3, GFR #### [address] [address] UA Nitrite Negative Normal Negative [facility] ([place]) Comment on above: Performed By: #### B MP, TSH, FT4, FT3, GFR #### [address] [address] UA pH 6.0 Normal 5.0 - 8.0 [facility] ([place]) Comment on above: Performed By: #### B MP, TSH, FT4, FT3, GFR #### [address] [address] UA Protein Negative Normal Negative [facility] ([place]) Comment on above: Performed By: #### B MP, TSH, FT4, FT3, GFR #### [address] [address] UA Spec Grav 1.010 Abnormal 1.015-1.025 [facility] ([place]) Comment on above: Performed By: #### B MP, TSH, FT4, FT3, GFR #### [address] [address] UA Specimen Type Clean Catch Normal [facility] ([place]) Comment on above: Performed By: #### B MP, TSH, FT4, FT3, GFR #### [address] [address] UA Urobilinogen 0.2 E.U./dL Normal 0.2-1.0 [facility] ([place]) Comment on above: Performed By: #### B MP, TSH, FT4, FT3, GFR #### [address] [address] Urobilinogen (U) [Mass/Vol] Negative Normal Negative [facility] ([place]) Comment on above: Performed By: #### B MP, TSH, FT4, FT3, GFR #### [address] [address] cefTAZidime MEGGAN [Susc]on Pseudomonas aeruginosa Pseudomonas aeruginosa [facility] Work Phone: Final Flow Cytometry Reporto n 01-12-2024 Final Flow Cytometry Report . Pathology Reports Accession: Collected Date/Time: Received Date/Time: Pathologist: [id number] 01/10/2024 10:46 EST 01/11/2024 06:11 CALVIN RICKETTS [...] BLOOD NA Heparin Tube PATH PROF CPT: 03998 Testing performed by Kerry DISCLAIMER: This test was developed and its performance approved by [facility]. It has not been cleared [...] Electronically Signed by Pathology Report verified by [facility] CALVIN RYAN Sign out Date: 01/12/2024 09:59 Performing Lab: [facility], [address] [place] [address] Pathology Dept Normal [facility] ([place]) .GFRon 01-10-2024 GFR Non- 53 ml/min/1.73sqm Normal [facility] ([place]) Comment on above: Result Comment: GFR Population [...] B MP, TSH, FT4, FT3, GFR #### [address] [address] GFR 64 ml/min/1.73sqm Normal [facility] ([place]) Comment on above: Result Comment: GFR Population [...] B MP, TSH, FT4, FT3, GFR #### [address] [address] BMPon 01-10-2024 BUN/Creatinine Ratio 20 ratio Normal 7-27 Replaced by [facility] ([place]) Comment on above: Performed By: #### B MP, TSH, FT4, FT3, GFR #### [address] [address] Calcium [Mass/Vol] 9.5 mg/dL Normal 8.4-10.2 [facility] ([place]) Comment on above: Performed By: #### B MP, TSH, FT4, FT3, GFR #### [address] [address] Chloride [Moles/Vol] 104 mmol/L Normal 98-107 Replaced by [facility] ([place]) Comment on above: Performed By: #### B MP, TSH, FT4, FT3, GFR #### [address] [address] CO2 [Moles/Vol] 25 mmol/L Normal 23-31 [facility] ([place]) Comment on above: Performed By: #### B MP, TSH, FT4, FT3, GFR #### [address] [address] Creatinine [Mass/Vol] 1.02 mg/dL Normal 0.55-1.02 [facility] ([place]) Comment on above: Performed By: #### B MP, TSH, FT4, FT3, GFR #### [address] [address] Electrolyte Balance 12.0 mEq/L Normal 4.0-15.0 [facility] ([place]) Comment on above: Performed By: #### B MP, TSH, FT4, FT3, GFR #### [address] [address] Glucose [Mass/Vol] 102 mg/dL Normal 83-110 [facility] ([place]) Comment on above: Performed By: #### B MP, TSH, FT4, FT3, GFR #### [address] [address] Potassium [Moles/Vol] 3.6 mmol/L Normal 3.5-5.1 [facility] ([place]) Comment on above: Performed By: #### B MP, TSH, FT4, FT3, GFR #### [address] [address] Sodium [Moles/Vol] 141 mmol/L Normal 136-145 [facility] ([place]) Comment on above: Performed By: #### B MP, TSH, FT4, FT3, GFR #### [address] [address] Urea nitrogen [Mass/Vol] 20 mg/dL High 7-18 [facility] ([place]) Comment on above: Performed By: #### B MP, TSH, FT4, FT3, GFR #### [address] [place], [place] [address] FT3on 01-10-2024 Free T3 [Mass/Vol] 2.32 pg/mL Normal 2.30-4.00 [facility] ([place]) Comment on above: Performed By: #### B MP, TSH, FT4, FT3, GFR #### [address] [place], [place] [address] FT4on 01-10-2024 Free T4 [Mass/Vol] 1.71 ng/dL High 0.76-1.46 [facility] ([place]) Comment on above: Performed By: #### B MP, TSH, FT4, FT3, GFR #### [id number] [place], [place] [address] LABORATORYOrdered By: SYSTEM SYSTEM on 01-10-2024 Calcium [...] 01-10-2024 TSH Qn 2.35 m[IU]/L Normal 0.36-3.74 [facility] ([place]) Comment on above: Performed By: #### B MP, TSH, FT4, FT3, GFR #### [id number] No Panel Informationon 01-06 There is no interpretation needed for this exam. IMAGING B1WBon 12-27-2023 Vitamin B1 Whl Bld 103.8 nmol/L Normal 66.5-200.0 Replaced by [facility] ([place]) Comment on above: Result Comment: This test was developed and its performance characteristics determined by [facility]. It has not been cleared or approved by the Food and Drug Administration. Performed At: [facility] [id number] James Bruce MD Ph:[phone] Performed By: #### B MP, TSH, FT4, FT3, GFR #### [address] [address] B12on 12-24-2023 Cobalamin (Vitamin B12) [Mass/Vol] 226 pg/mL Normal 211-911 [facility] ([place]) Comment on above: Performed By: #### B MP, TSH, FT4, FT3, GFR #### [address] [address] FOLon 12-24-2023 Folate 22.37 ng/mL Normal 5.38-24.00 [facility] ([place]) Comment on above: Performed By: #### B MP, TSH, FT4, FT3, GFR #### [address] [address] HCVon 12-24-2023 Hep C Ab Non-Reactive Normal Non-Reactive [facility] ([place]) Comment on above: Performed By: #### B MP, TSH, FT4, FT3, GFR #### [address] [address] Hep C Ab Int Normal [facility] ([place]) Comment on above: Result Comment: Nonr eactive: [...] B MP, TSH, FT4, FT3, GFR #### [address] [address] .Auto Diffon 12-23-2023 Basophil, Absolute 0.1 10 3/mcL Normal 0.0-0.2 Replaced by [facility] ([place]) Comment on above: Performed By: #### B MP, TSH, FT4, FT3, GFR #### [address] [address] Basophils/100 WBC (Bld) 1.4 % Normal 0.0-2.5 A [facility] ([place]) Comment on above: Performed By: #### B MP, TSH, FT4, FT3, GFR #### [address] [address] Eosinophil, Absolute 0.1 10 3/mcL Normal 0.0-0.4 [facility] ([place]) Comment on above: Performed By: #### B MP, TSH, FT4, FT3, GFR #### [address] [address] Eosinophils/100 WBC (Bld) 2.0 % Normal 0.0-7.0 [facility] ([place]) Comment on above: Performed By: #### B MP, TSH, FT4, FT3, GFR #### [address] [address] Lymphocyte, Absolute 1.6 10 3/mcL Normal 0.8-3.9 [facility] ([place]) Comment on above: Performed By: #### B MP, TSH, FT4, FT3, GFR #### [address] [address] Lymphocytes/100 WBC (Bld) 33.0 % Normal 10.0-50.0 [facility] ([place]) Comment on above: Performed By: #### B MP, TSH, FT4, FT3, GFR #### [address] [address] Monocyte, Absolute 0.4 10 3/mcL Normal 0.2-1.0 Replaced by [facility] ([place]) Comment on above: Performed By: #### B MP, TSH, FT4, FT3, GFR #### [address] [address] Monocytes/100 WBC (Bld) 7.4 % Normal 1.7-13.0 A [facility] ([place]) Comment on above: Performed By: #### B MP, TSH, FT4, FT3, GFR #### [address] [place], [place] [address] Neutrophils/100 WBC (Bld) 56.2 % Normal 37.0-80.0 [facility] ([place]) Comment on above: Performed By: #### B MP, TSH, FT4, FT3, GFR #### [address] [address] .GFRon 12-23-2023 GFR Non- 68 ml/min/1.73sqm Normal [facility] ([place]) Comment on above: Result Comment: GFR Population [...] B MP, TSH, FT4, FT3, GFR #### [address] [place], [place] [address] GFR 82 ml/min/1.73sqm Normal [facility] ([place]) Comment on above: Result Comment: GFR Population [...] B MP, TSH, FT4, FT3, GFR #### [address] [address] .Manual Diffon 12-23-2023 Basophil %, Manual 0.0 % Normal 0.0-2.5 [facility] ([place]) Comment on above: Performed By: #### B MP, TSH, FT4, FT3, GFR #### [address] [address] Basophil, Abs Manual 0.0 10 3/mcL Normal 0.0-0.2 [facility] ([place]) Comment on above: Performed By: #### B MP, TSH, FT4, FT3, GFR #### [address] [address] Eosinophil %, Manual 3.0 % Normal 0.0-7.0 Replaced by [facility] ([place]) Comment on above: Performed By: #### B MP, TSH, FT4, FT3, GFR #### [address] [address] Eosinophil, Abs Manual 0.1 10 3/mcL Normal 0.0-0.4 [facility] ([place]) Comment on above: Performed By: #### B MP, TSH, FT4, FT3, GFR #### [address] [address] Lymphocyte %, Manual 39.0 % Normal 10.0-50.0 Replaced by [facility] ([place] Comment on above: Performed By: #### B MP, TSH, FT4, FT3, GFR #### [address] [address] Lymphocyte, Abs Manual 1.9 10 3/mcL Normal 0.8-3.9 [facility] ([place]) Comment on above: Performed By: #### B MP, TSH, FT4, FT3, GFR #### [address] [address] Monocyte %, Manual 4.0 % Normal 1.7-13.0 [facility] ([place]) Comment on above: Performed By: #### B MP, TSH, FT4, FT3, GFR #### [address] [address] Monocyte, Abs Manual 0.2 10 3/mcL Normal 0.2-1.0 [facility] ([place]) Comment on above: Performed By: #### B MP, TSH, FT4, FT3, GFR #### [address] [address] Neutrophil, Abs Manual 2.6 10 3/mcL Low 2.9-6.2 [facility] ([place]) Comment on above: Performed By: #### B MP, TSH, FT4, FT3, GFR #### [address] [address] Nucleated RBC 0.0 /100 WBC Normal [facility] ([place]) Comment on above: Performed By: #### B MP, TSH, FT4, FT3, GFR #### [address] [address] .Morphon 12-23-2023 Anisocytosis Ql (Bld) 1+ Normal [facility] ([place]) Comment on above: Performed By: #### B MP, TSH, FT4, FT3, GFR #### [address] [address] Platelet Estimate Normal Normal [facility] ([place]) Comment on above: Performed By: #### B MP, TSH, FT4, FT3, GFR #### [address] [address] .NEUABSon 12-23-2023 Neutrophil, Absolute 2.7 10 3/mcL Low 2.9-6.2 [facility] ([place]) Comment on above: Performed By: #### B MP, TSH, FT4, FT3, GFR #### [address] [address] A1Con 12-23-2023 HbA1c (Bld) [Mass fraction] 5.3 % Normal 4.3-6.4 [facility] ([place]) Comment on above: Performed By: #### B MP, TSH, FT4, FT3, GFR #### [address] [address] CBCon 12-23-2023 Erythrocyte distribution width (RBC) [Ratio] 13.5 % Normal 11.5-14.5 [facility] ([place]) Comment on above: Performed By: #### B MP, TSH, FT4, FT3, GFR #### [address] [address] Hematocrit (Bld) [Volume fraction] 33.8 % Low 37.0-47.0 [facility] ([place]) Comment on above: Performed By: #### B MP, TSH, FT4, FT3, GFR #### [address] [address] Hgb 11.9 G/dL Low 12.0-16.0 [facility] ([place]) Comment on above: Performed By: #### B MP, TSH, FT4, FT3, GFR #### [address] [address] MCH (RBC) [Entitic mass] 34.3 pg High 27.0-31.2 [facility] ([place]) Comment on above: Performed By: #### B MP, TSH, FT4, FT3, GFR #### [address] [address] MCHC 35.3 G/dL Normal 33.0-37.0 [facility] ([place]) Comment on above: Performed By: #### B MP, TSH, FT4, FT3, GFR #### [address] [address] MCV (RBC) [Entitic vol] 97.4 fL High 80.0-94.0 A [facility] ([place]) Comment on above: Performed By: #### B MP, TSH, FT4, FT3, GFR #### [address] [address] Platelet 374 10 3/mcL Normal 130-400 [facility] ([place]) Comment on above: Performed By: #### B MP, TSH, FT4, FT3, GFR #### [address] [address] Platelet mean volume (Bld) [Entitic vol] 7.7 fL Normal 7.4-10.4 [facility] ([place]) Comment on above: Performed By: #### B MP, TSH, FT4, FT3, GFR #### [address] [address] RBC 3.47 10 6/mcL Low 4.20-5.40 [facility] ([place]) Comment on above: Performed By: #### B MP, TSH, FT4, FT3, GFR #### [address] [address] WBC 4.8 10 3/mcL Normal 4.6-10.8 [facility] ([place]) Comment on above: Performed By: #### B MP, TSH, FT4, FT3, GFR #### [address] [address] CMPon 12-23-2023 Albumin Level 3.7 G/dL Normal 3.4-4.8 [facility] ([place]) Comment on above: Performed By: #### B MP, TSH, FT4, FT3, GFR #### [address] [address] Albumin/Globulin [Mass ratio] 1.1 {ratio} Normal 1.1-2.5 [facility] ([place]) Comment on above: Performed By: #### B MP, TSH, FT4, FT3, GFR #### [address] [address] ALP [Catalytic activity/Vol] 69 U/L Normal 40-135 [facility] ([place]) Comment on above: Performed By: #### B MP, TSH, FT4, FT3, GFR #### [address] [address] ALT [Catalytic activity/Vol] 28 U/L Normal 14-59 [facility] ([place]) Comment on above: Performed By: #### B MP, TSH, FT4, FT3, GFR #### [address] [address] AST [Catalytic activity/Vol] 21 U/L Normal 10-40 [facility] ([place]) Comment on above: Performed By: #### B MP, TSH, FT4, FT3, GFR #### [address] [address] Bili Total 1.0 mg/dL Normal 0.2-1.0 [facility] ([place]) Comment on above: Result Comment: Use of this assay is not recommended for patients undergoing treatment with eltrombopag due to the potential for falsely elevated results. Performed By: #### B MP, TSH, FT4, FT3, GFR #### [id number] BUN/Creatinine Ratio 13 ratio Normal 7-27 Replaced by [facility] ([place]) Comment on above: Performed By: #### B MP, TSH, FT4, FT3, GFR #### [id number] Calcium [Mass/Vol] 9.4 mg/dL Normal 8.4-10.2 [facility] ([place]) Comment on above: Performed By: #### B MP, TSH, FT4, FT3, GFR #### [address] [address] Chloride [Moles/Vol] 104 mmol/L Normal 98-107 Replaced by [facility] ([place]) Comment on above: Performed By: #### B MP, TSH, FT4, FT3, GFR #### [address] [address] CO2 [Moles/Vol] 28 mmol/L Normal 23-31 [facility] ([place]) Comment on above: Performed By: #### B MP, TSH, FT4, FT3, GFR #### [address] [place] [id number] Creatinine [Mass/Vol] 0.82 mg/dL Normal 0.55-1.02 [facility] ([place]) Comment on above: Performed By: #### B MP, TSH, FT4, FT3, GFR #### [address] [address] Electrolyte Balance 8.0 mEq/L Normal 4.0-15.0 [facility] ([place]) Comment on above: Performed By: #### B MP, TSH, FT4, FT3, GFR #### [address] [address] Globulin 3.3 G/dL Normal [facility] ([place]) Comment on above: Performed By: #### B MP, TSH, FT4, FT3, GFR #### [address] [address] Glucose [Mass/Vol] 107 mg/dL Normal 83-110 [facility] ([place]) Comment on above: Performed By: #### B MP, TSH, FT4, FT3, GFR #### [address] [address] Potassium [Moles/Vol] 3.4 mmol/L Low 3.5-5.1 [facility] ([place]) Comment on above: Performed By: #### B MP, TSH, FT4, FT3, GFR #### [address] [address] Sodium [Moles/Vol] 140 mmol/L Normal 136-145 [facility] ([place]) Comment on above: Performed By: #### B MP, TSH, FT4, FT3, GFR #### [address] [address] Total Protein 7.0 G/dL Normal 6.4-8.2 [facility] ([place]) Comment on above: Performed By: #### B MP, TSH, FT4, FT3, GFR #### [address] [address] Urea nitrogen [Mass/Vol] 11 mg/dL Normal 7-18 [facility] ([place]) Comment on above: Performed By: #### B MP, TSH, FT4, FT3, GFR #### [address] [address] FT3on 12-23-2023 Free T3 [Mass/Vol] 2.06 pg/mL Low 2.30-4.00 [facility] ([place]) Comment on above: Performed By: #### B MP, TSH, FT4, FT3, GFR #### [address] [address] FT4on 12-23-2023 Free T4 [Mass/Vol] 1.56 ng/dL High 0.76-1.46 [facility] ([place]) Comment on above: Performed By: #### B MP, TSH, FT4, FT3, GFR #### [address] [address] LABORATORYOrdered By: SYSTEM SYSTEM on 12-23-2023 25-hydroxyvitamin [...] Invalid Interpretation Code Chemistry S LABORATORYOrdered By: Stylenda P CONTRIBUTOR_SYSTEM on 12-23-2023 Vitamin B1 Whl Bld (LC) 103.8 nmol/L Invalid Interpretation Code 66.5-200.0 [facility] Comment on above: Result Comment: This test was developed and its performance characteristics determined by [facility]. It has not been cleared or approved by the Food and Drug Administration. Performed At: [facility] [id number] James Bruce MD Ph:[phone] TSHon 12-23-2023 TSH Qn 1.60 m[IU]/L Normal 0.36-3.74 [facility] ([place]) Comment on above: Performed By: #### B MP, TSH, FT4, FT3, GFR #### [address] [address] VIDHon 12-23-2023 Vit. D 25-Hydroxy 20.3 ng/mL Normal [facility] ([place]) Comment on above: Result Comment: Inte rpretive Values Based on Total 25(OH) Vitamin D: Deficient <20 ng/mL Insufficient 20 - <30 ng/mL Sufficient 30-100 ng/mL Performed By: #### B MP, TSH, FT4, FT3, GFR #### [address] GUIDANCE OR USE ONLY - NO N RESULTABLEon 12-06-2023 There is no interpretation needed for this exam. IMAGING .Urinalysis Microscopic (AO) on 11-20-2023 UA Bacteria Trace Abnormal [facility] ([place]) Comment on above: Performed By: #### U A, UAMICAO #### [address] [place] [address] UA RBC LOADED Abnormal None Seen [facility] ([place]) Comment on above: Performed By: #### U A, UAMICAO #### [address] [place] [address] UA Squam Epithelial 0-5 Abnormal None Seen [facility] ([place]) Comment on above: Performed By: #### U A, UAMICAO #### [place] [address] UA WBC 0-5 Abnormal None Seen [facility] ([place]) Comment on above: Performed By: #### U A, UAMICAO #### [place] [address] LABORATORYOrdered By: Johanna Gold on 11-20-2023 Appearance [...] SS UAon 11-20-2023 Color (U) Red Abnormal [facility] ([place]) Comment on above: Performed By: #### U A, UAMICAO #### [address] [address] Glucose (U) [Mass/Vol] Negative Normal Negative [facility] ([place]) Comment on above: Performed By: #### U A, UAMICAO #### [address] [address] Ketones Ql (U) 15 mg/dL Abnormal Negative [facility] ([place]) Comment on above: Performed By: #### U A, UAMICAO #### [address] [address] UA Appear Cloudy Abnormal Clear [facility] ([place]) Comment on above: Performed By: #### U A, UAMICAO #### [address] [address] UA Bili Moderate Abnormal Negative [facility] ([place]) Comment on above: Performed By: #### U A, UAMICAO #### [address] [address] UA Blood Large Abnormal Negative [facility] ([place]) Comment on above: Performed By: #### U A, UAMICAO #### [address] [address] UA Leuk Est Negative Normal Negative [facility] ([place]) Comment on above: Performed By: #### U A, UAMICAO #### [address] [address] UA Nitrite Positive Abnormal Negative [facility] ([place]) Comment on above: Performed By: #### U A, UAMICAO #### [address] [address] UA pH 5.5 Normal 5.0 - 8.0 [facility] ([place]) Comment on above: Performed By: #### U A, UAMICAO #### [place] [address] UA Protein >=300 Abnormal Negative [facility] ([place]) Comment on above: Performed By: #### U A, UAMICAO #### [place] [address] UA Spec Grav >=1.030 Abnormal 1.015-1.025 [facility] ([place]) Comment on above: Performed By: #### U A, UAMICAO #### [place] [address] UA Specimen Type Clean Catch Normal [facility] ([place]) Comment on above: Performed By: #### U A, UAMICAO #### [place] [address] UA Urobilinogen 1.0 E.U./dL Normal 0.2-1.0 [facility] ([place]) Comment on above: Performed By: #### U A, UAMICAO #### [place] [address] .Urinalysis Microscopic (AO) on 11-12-2023 UA Bacteria Trace Abnormal [facility] ([place]) Comment on above: Performed By: #### U A, UAMICAO #### [place] [address] UA Mucous Trace Normal [facility] ([place]) Comment on above: Performed By: #### U A, UAMICAO #### [address] [address] UA RBC 0-5 Abnormal None Seen [facility] ([place]) Comment on above: Performed By: #### U A, UAMICAO #### [address] [address] UA Squam Epithelial 0-5 Abnormal None Seen [facility] ([place]) Comment on above: Performed By: #### U A, UAMICAO #### [address] [address] UA WBC 0-5 Abnormal None Seen [facility] ([place]) Comment on above: Performed By: #### U A, UAMICAO #### [place] [address] UAon 11-12-2023 Color (U) Yellow Normal [facility] ([place]) Comment on above: Performed By: #### U A, UAMICAO #### [place] [id number] Glucose (U) [Mass/Vol] Negative Normal Negative [facility] ([place]) Comment on above: Performed By: #### U A, UAMICAO #### [address] [address] Ketones Ql (U) Negative Normal Negative [facility] ([place]) Comment on above: Performed By: #### U A, UAMICAO #### [address] [address] UA Appear Clear Normal Clear [facility] ([place]) Comment on above: Performed By: #### U A, UAMICAO #### [address] [address] UA Blood Small Abnormal Negative [facility] ([place]) Comment on above: Performed By: #### U A, UAMICAO #### [place] [id number] UA Leuk Est Small Abnormal Negative [facility] ([place]) Comment on above: Performed By: #### U A, UAMICAO #### [place] [id number] UA Nitrite Negative Normal Negative [facility] ([place]) Comment on above: Performed By: #### U A, UAMICAO #### [address] [address] UA pH 6.0 Normal 5.0 - 8.0 [facility] ([place]) Comment on above: Performed By: #### U A, UAMICAO #### [place] [address] UA Protein Negative Normal Negative [facility] ([place]) Comment on above: Performed By: #### U A, UAMICAO #### [place] [address] UA Spec Grav 1.010 Abnormal 1.015-1.025 [facility] ([place]) Comment on above: Performed By: #### U A, UAMICAO #### [place] [address] UA Specimen Type Clean Catch Normal [facility] ([place]) Comment on above: Performed By: #### U A, UAMICAO #### [place] [address] UA Urobilinogen 0.2 E.U./dL Normal 0.2-1.0 [facility] ([place]) Comment on above: Performed By: #### U A, UAMICAO #### [place] [address] Urobilinogen (U) [Mass/Vol] Negative Normal Negative [facility] ([place]) Comment on above: Performed By: #### U A, UAMICAO #### [place] [address] LABORATORYOrdered By: Balwinder De Los Santos on [...] No Panel Informationon 11-10 Bilirubin, [facility] Glucose, UA 100 [facility] Ketones, UA (mg/dL) Negative Negative mg/dL [facility] Leukocytes, UA Small [facility] [place] [facility] th Nitrite, UA Positive [facility] pH, UA 6.0 [facility] Protein, UA Negative [facility] Spec Grav, UA 1.010 [facility], [facility].2 [facility] CT ABDOMEN/PELVIS W/O CONTRA STon 11-08-2023 CT ABDOMEN/PELVIS W/O CONTRAST ORIGINAL EXAMINATION: CT OF THE ABDOMEN AND PELVIS WITHOUT XKDLKYTE34/12/2023 1:46 pm TECHNIQUE: CT of the abdomen [...] 11/08/2023 2:09:59 PM Ordering Provider: STACEY Roblero [facility] ([place]) .Urinalysis Microscopic (AO) on 11-07-2023 UA Bacteria 1+ /hpf Abnormal [facility] ([place]) Comment on above: Performed By: #### B MP, TSH, FT4, FT3, GFR #### [address] [address] UA RBC LOADED Abnormal None Seen [facility] ([place]) Comment on above: Performed By: #### B MP, TSH, FT4, FT3, GFR #### [address] [address] UA Squam Epithelial 0-5 Abnormal None [facility]en [facility] [facility] ([place]) Comment on above: Performed By: #### B MP, TSH, FT4, FT3, GFR #### [address] [address] UA WBC 0-5 Abnormal None Seen [facility] ([place]) Comment on above: Performed By: #### B MP, TSH, FT4, FT3, GFR #### [place] [address] [place], [place] [address] LABORATORYOrdered By: Johanna Gold on 11-07-2023 Appearance (U) Slightly Cloudy *ABN* (11/07/23 12:56 AM) Invalid Interpretation Code Clear AO Auto Urine SS Bacteria LM.HPF (Urine sed) [#/Area] 1 /[HPF] Invalid Interpretation Code AO Auto Urine SS Bilirubin Ql (U) Negative (11/07/23 12:56 AM) Normal Negative AO Auto Urine SS Color (U) [place] Invalid Interpretation Code AO Auto Urine SS [...] Auto Urine SS UAon 11-07-2023 Color (U) [place] Normal [facility] ([place]) Comment on above: Performed By: #### B MP, TSH, FT4, FT3, GFR #### [address] [address] Glucose (U) [Mass/Vol] Negative Normal Negative [facility] ([place]) Comment on above: Performed By: #### B MP, TSH, FT4, FT3, GFR #### [address] [address] Ketones Ql (U) Negative Normal Negative [facility] ([place]) Comment on above: Performed By: #### B MP, TSH, FT4, FT3, GFR #### [address] [address] UA Appear Slightly Cloudy Abnormal Clear [facility] ([place]) Comment on above: Performed By: #### B MP, TSH, FT4, FT3, GFR #### [address] [address] UA Blood Large Abnormal Negative [facility] ([place]) Comment on above: Performed By: #### B MP, TSH, FT4, FT3, GFR #### [address] [address] UA Leuk Est Small Abnormal Negative [facility] ([place]) Comment on above: Performed By: #### B MP, TSH, FT4, FT3, GFR #### [address] [address] UA Nitrite Negative Normal Negative [facility] ([place]) Comment on above: Performed By: #### B MP, TSH, FT4, FT3, GFR #### [address] [address] UA pH 6.0 Normal 5.0 - 8.0 [facility] ([place]) Comment on above: Performed By: #### B MP, TSH, FT4, FT3, GFR #### [address] [address] UA Protein 30 mg/dL Normal Negative [facility] ([place]) Comment on above: Performed By: #### B MP, TSH, FT4, FT3, GFR #### [address] [address] UA Spec Grav 1.010 Abnormal 1.015-1.025 [facility] ([place]) Comment on above: Performed By: #### B MP, TSH, FT4, FT3, GFR #### [address] [address] UA Specimen Type Void Normal [facility] ([place]) Comment on above: Performed By: #### B MP, TSH, FT4, FT3, GFR #### [address] [address] UA Urobilinogen 0.2 E.U./dL Normal 0.2-1.0 [facility] ([place]) Comment on above: Performed By: #### B MP, TSH, FT4, FT3, GFR #### [address] [address] Urobilinogen (U) [Mass/Vol] Negative Normal Negative [facility] ([place]) Comment on above: Performed By: #### B MP, TSH, FT4, FT3, GFR #### [place] [address] CEFUROXIME:SUSC:PT:ISOLATE:O RDQN:MICon 10-24-2023 Cefuroxime MEGGAN [Susc] >100,000 cfu/ml Klebsiella pneumoniae >100,000 cfu/ml Klebsiella pneumoniae #2 [facility] Work Phone: Cefuroxime MEGGAN [Susc]on 09-29 Klebsiella pneumoniae Klebsiella pneumoniae [facility] Work Phone: .Manual Diffon 06-07-2023 Basophil %, Manual 1.0 % Normal 0.0-2.5 [facility] ([place]) Comment on above: Performed By: #### B MP, TSH, FT4, FT3, GFR #### [place] [address] Basophil, Abs Manual 0.1 10 3/mcL Normal 0.0-0.2 [facility] ([place]) Comment on above: Performed By: #### B MP, TSH, FT4, FT3, GFR #### [place] [address] Eosinophil %, Manual 3.0 % Normal 0.0-7.0 Replaced by [facility] ([place]) Comment on above: Performed By: #### B MP, TSH, FT4, FT3, GFR #### [address] [address] Eosinophil, Abs Manual 0.1 10 3/mcL Normal 0.0-0.4 [facility] ([place]) Comment on above: Performed By: #### B MP, TSH, FT4, FT3, GFR #### [place] [address] Lymphocyte %, Manual 37.0 % Normal 10.0-50.0 Replaced by [facility] ([place]) Comment on above: Performed By: #### B MP, TSH, FT4, FT3, GFR #### [address] [address] Lymphocyte, Abs Manual 1.7 10 3/mcL Normal 0.8-3.9 [facility] ([place]) Comment on above: Performed By: #### B MP, TSH, FT4, FT3, GFR #### [address] [address] Monocyte %, Manual 5.0 % Normal 1.7-13.0 [facility] ([place]) Comment on above: Performed By: #### B MP, TSH, FT4, FT3, GFR #### [address] [address] Monocyte, Abs Manual 0.2 10 3/mcL Normal 0.2-1.0 [facility] ([place]) Comment on above: Performed By: #### B MP, TSH, FT4, FT3, GFR #### [address] [address] Neutrophil %, Manual 54.0 % Normal 37.0-80.0 Replaced by [facility] ([place]) Comment on above: Performed By: #### B MP, TSH, FT4, FT3, GFR #### [address] [address] Neutrophil, Abs Manual 2.5 10 3/mcL Low 2.9-6.2 [facility] ([place]) Comment on above: Performed By: #### B MP, TSH, FT4, FT3, GFR #### [address] [address] Nucleated RBC 0.0 /100 WBC Normal [facility] ([place]) Comment on above: Performed By: #### B MP, TSH, FT4, FT3, GFR #### [address] [address] .Morphon 06-07-2023 Hyperseg 1+ Normal [facility] ([place]) Comment on above: Performed By: #### B MP, TSH, FT4, FT3, GFR #### [address] [address] Platelet Estimate Normal Normal [facility] ([place]) Comment on above: Performed By: #### B MP, TSH, FT4, FT3, GFR #### [address] [address] CBCon 06-07-2023 Erythrocyte distribution width (RBC) [Ratio] 13.4 % Normal 11.5-14.5 [facility] ([place]) Comment on above: Performed By: #### B MP, TSH, FT4, FT3, GFR #### [place] [id number] Hematocrit (Bld) [Volume fraction] 34.4 % Low 37.0-47.0 [facility] ([place]) Comment on above: Performed By: #### B MP, TSH, FT4, FT3, GFR #### [place] [id number] Hgb 11.8 G/dL Low 12.0-16.0 [facility] ([place]) Comment on above: Performed By: #### B MP, TSH, FT4, FT3, GFR #### [address] [address] MCH (RBC) [Entitic mass] 32.8 pg High 27.0-31.2 [facility] ([place]) Comment on above: Performed By: #### B MP, TSH, FT4, FT3, GFR #### [place] [id number] MCHC 34.4 G/dL Normal 33.0-37.0 [facility] ([place]) Comment on above: Performed By: #### B MP, TSH, FT4, FT3, GFR #### [address] [address] MCV (RBC) [Entitic vol] 95.4 fL High 80.0-94.0 [facility] ([place]) Comment on above: Performed By: #### B MP, TSH, FT4, FT3, GFR #### [place] [id number] Platelet 281 10 3/mcL Normal 130-400 [facility] ([place]) Comment on above: Performed By: #### B MP, TSH, FT4, FT3, GFR #### [address] [address] Platelet mean volume (Bld) [Entitic vol] 7.1 fL Low 7.4-10.4 [facility] ([place]) Comment on above: Performed By: #### B MP, TSH, FT4, FT3, GFR #### [place] [address] RBC 3.61 10 6/mcL Low 4.20-5.40 [facility] ([place]) Comment on above: Performed By: #### B MP, TSH, FT4, FT3, GFR #### [address] [address] WBC 4.6 10 3/mcL Normal 4.6-10.8 [facility] ([place]) Comment on above: Performed By: #### B MP, TSH, FT4, FT3, GFR #### [address] [address] FT4on 06-07-2023 Free T4 [Mass/Vol] 1.27 ng/dL Normal 0.76-1.46 [facility]) Comment on above: Performed By: #### B MP, TSH, FT4, FT3, GFR #### [address] [address] TSHon 06-07-2023 TSH Qn 1.45 m[IU]/L Normal 0.36-3.74 [facility] ([place]) Comment on above: Performed By: #### B MP, TSH, FT4, FT3, GFR #### [address] [address] LABORATORYOrdered By: Johanna Gold on 02-15-2023 Albumin [...] Auto (Unsp spec) [#/Vol] 1.97 10*3/uL 0.83-4.51 [facility] Basophil percentageOrdered B y: Dr. Guevara on 12-30-2022 Basophils/100 WBC (Bld) 0.5 % 0-1 [facility] Chloride [Moles/Vol] 108 mmol/L 98-107 [facility] Eosinophils/100 WBC (Bld) 3.1 % 0-5 [facility] Glucose [Mass/Vol] 109 mg/dL 74-106 [facility] Comment on above: Fasting Glucose resu lt from 100 to 125 mg/dL suggests IMPAIRED HOMEOSTASIS per A.D.A. criteria. Neutrophils (Bld) [#/Vol] 3.7 10*3/uL 2.0-7.7 [facility] Neutrophils/100 WBC (Bld) 57.0 % 47-70 [facility] Potassium [Moles/Vol] 3.9 mmol/L 3.5-5.1 [facility] Sodium [Moles/Vol] 139 mmol/L 136-145 [facility] WBC (Bld) [#/Vol] 6.5 10*3/uL 4.4-11.0 [facility] Blood erythrocytes count (nu mber/volume)Ordered By: Dr. Guevara on 12-30-2022 RBC (Bld) [#/Vol] 3.12 10*6/uL 4.2-5.4 [facility] Blood hemoglobin measurement (mass/volume)Ordered By: Dr. Guevara on 12-30-2022 Hemoglobin (Bld) [Mass/Vol] 10.2 g/dL 12.0-15.0 [facility] Blood lymphocytes/100 leukoc ytesOrdered By: Dr. Guevara on 12-30-2022 Lymphocytes/100 WBC (Bld) 30.3 % 19-41 [facility] Blood monocytes/100 leukocyt esOrdered By: Dr. Guevara on 12-30-2022 Monocytes/100 WBC (Bld) 8.8 % 0-[address] [facility] Blood platelet mean volumeOr dered By: Dr. Guevara on 12-30-2022 Platelet mean volume (Bld) [Entitic vol] 8.5 fL 6.2-12.0 [facility] Determination of erythrocyte mean corpuscular volume (MCV)Ordered By: Dr. Guevara on 12-30-2022 MCV (RBC) [Entitic vol] 97.8 fL 81-[address] [facility] Hematocrit Auto (Bld) [Volum e fraction]Ordered By: Dr. Guevara on 12-30-2022 Hematocrit (Bld) [Volume fraction] 30.5 % 37-47 [facility] Laboratory - Chemistry and C hemistry - challengeOrdered By: Dr. Guevara on 12-30-2022 CO2 [Moles/Vol] 23.0 mmol/L 21.0-32.0 [facility] Urea nitrogen/Creatinine [Mass ratio] 18.0 mg/mg 10-20 [facility] Laboratory - Hematology and Cell countsOrdered By: Dr. Guevara on 12-30-2022 Erythrocyte distribution width (RBC) [Entitic vol] 45.5 fL 35.1-43.9 [facility] Erythrocyte distribution width (RBC) [Ratio] 13.2 % 11.6-14.6 [facility] Immature granulocytes/100 WBC (Bld) 0.300 % 0.0-0.9 [facility] Comment on above: IG% - Immature Granu locytes (promyelocytes, myelocytes and metamyelocytes) > 1% indicates that a LEFT SHIFT is Present. MCH (RBC) [Entitic mass] 32.7 pg 27.0-32.0 [facility] Nucleated RBC/100 WBC (Bld) [Ratio] 0 % 0-5 [facility] MCHC Auto (RBC) [Mass/Vol]Or dered By: Dr. Guevara on 12-30-2022 MCHC (RBC) [Mass/Vol] 33.4 g/dL 32-36 [facility] No Panel InformationOrdered By: Dr. Guevara on 12-30-2022 Estimated Creatinine Clearance Calc 42.62 ml/min [facility] Estimated GFR (MDRD) Amer 123 mL/min >60 [facility] Comment on above: GFR Calc Estimated GFR (MDRD) Non-Af Amer 102 mL/min >60 [facility] Comment on above: Non- GFR Calc Platelets bldOrdered By: Dr. Guevara on 12-30-2022 Platelets (Bld) [#/Vol] 360 10*3/uL 150-450 [facility] Serum or plasma calcium fracnois urement (mass/volume)Ordered By: Dr. Guevara on 12-30-2022 Calcium [Mass/Vol] 9.1 mg/dL 8.5-10.1 [facility] Serum or plasma creatinine m easurement (mass/volume)Ordered By: Dr. Guevara on 12-30-2022 Creatinine [Mass/Vol] 0.61 mg/dL 0.55-1.02 [facility] Comment on above: The validity of the calculated GFR & GFRAA in patients over 70 years has not been determined. Clinical correlation is essential. Serum or plasma urea nitroge n measurement (mass/volume)Ordered By: Dr. Guevara on 12-30-2022 Urea nitrogen [Mass/Vol] 11 mg/dL 7-18 [facility] Thin prep Papanicolaou smear with manual screeningOrdered By: Dr. Guevara on 12-30-2022 Thin prep Papanicolaou smear with manual screening 8 5-15 [facility] COVID-19 virus antigen assay Ordered By: Dr. Guevara on 12-26-2022 SARS-CoV-2 (COVID-19) Ag IA.rapid Ql (Resp) [facility] Hemogramon 09-24-2022 Erythrocyte distribution width (RBC) [Ratio] 13.5 % Normal 11.5-14.5 [facility] Comment on above: Performed By: #### B MP3, HEMOG #### [facility] [address] [place] [address] Hematocrit (Bld) [Volume fraction] 33.7 % Low 35.0-47.0 [facility] Comment on above: Performed By: #### B MP3, HEMOG #### [facility] [address] [place] [address] Hemoglobin (Bld) [Mass/Vol] 11.8 g/dL Normal 11.7-16.0 [facility] Comment on above: Performed By: #### B MP3, HEMOG #### [place] [address] [address] [place], [place] MCH (RBC) [Entitic mass] 34.5 pg High 26.0-34.0 [facility] Comment on above: Performed By: #### B MP3, HEMOG #### [place] [address] [address] [place], [place] MCHC 35.0 % Normal 32.0-36.0 [facility] Comment on above: Performed By: #### B MP3, HEMOG #### [place] [address] [address] [place], [place] MCV (RBC) [Entitic vol] 98.6 fL High 79.0-98.[address] [facility] Comment on above: Performed By: #### B MP3, HEMOG #### [place] [address] [address] [place], [place] Platelet mean volume (Bld) [Entitic vol] 6.9 fL Low 7.4-12.4 [facility] Comment on above: Result Comment: MPV is a calculated measurement using platelet volume ratio. Performed By: #### B MP3, HEMOG #### [place] [address] [address] [place], [place] Platelets (Bld) [#/Vol] 209 10*3/uL Normal 140-440 [facility] Comment on above: Performed By: #### B MP3, HEMOG #### [place] [address] [address] [place], [place] RBC (Bld) [#/Vol] 3.42 10*6/uL Low 3.80-5.20 [facility] Comment on above: Performed By: #### B MP3, HEMOG #### [place] [address] [address] [place], [place] WBC (Bld) [#/Vol] 4.3 10*3/uL Normal 3.6-10.7 [facility] Comment on above: Performed By: #### B MP3, HEMOG #### [address] [address] Op Noteon 09-24-2022 Op Note Operative Report Pre Op Diagnosis left Renal Calculus, greater than 2cm Post Op Diagnosis Same Operation left PCNL Surgeon Sarath Ramos MD Baking Assistant Whitney Drains 6 X 26 JJ stent [...] and lines were maintained by anesthesia. A gumsan catheter was inserted in a sterile fashion. [...] to recovery room in stable condition. Normal [facility] Prothrombin Timeon INR 1.0 Normal 0.9-1.1 [facility] Comment on above: Result Comment: Jarrod mmended [...] Performed By: #### B MP3, HEMOG #### [facility] [address] [place] [address] PT Coag (PPP) [Time] 10.4 s Normal 9.0-12.0 [facility] Comment on above: Result Comment: . Performed By: #### B MP3, HEMOG #### [facility] [address] [place] [address] XA Special Angiography Proce [facility] 09-24-2022 XA Special Angiography Procedure Patient Name: SURINDER RASHEED Special Procedures ACCESSION EXAM DATE/TIME PROCEDURE ORDERING PROVIDER [id number] 09/24/2022 10:04 EDT XA Special Angiography MD [...] ureter. The tract was dilated. A 10 Syrian dual lumen catheter was placed into the [...] follow. 2. Successful placement of a 10 Syrian dual lumen catheter into the mid/distal left ureter. Special Procedures Report Report Dictated on Final Dictated: 09/24/2022 10:24 am Dictating Physician: MD SORIANO JEFFREY Signed Date and Time: 09/24/2022 10:26 am Signed by: MD SORIANO JEFFREY Transcribed Date and Time: 09/24/2022 10:24 Normal [facility] CULTURE URINEon 09-19-2022 CULTURE URINE 1 Organism [...] 1.0 S Amikacin(MEGGAN) <= 2.0 S Normal [facility] Comment on above: Performed By: #### C UA2 #### [address] Basic Metabolic Panelon 10-2 Calcium [Mass/Vol] 9.7 mg/dL Normal 8.4-10.4 [facility] Comment on above: Performed By: #### C UA2 #### [address] Glucose [Mass/Vol] 98 mg/dL Normal 70-100 [facility] Comment on above: Performed By: #### C UA2 #### [address] Urea nitrogen [Mass/Vol] 13 mg/dL Normal 9-20 [facility] Comment on above: Performed By: #### C UA2 #### [address] Anion gap [Moles/Vol] 3 mmol/L Normal 3-13 [facility] Comment on above: Performed By: #### C UA2 #### [place] [address] [address] [place], [place] CO2 [Moles/Vol] 27 mmol/L Normal 22-30 [facility] Comment on above: Performed By: #### C UA2 #### [place] [address] [place], [place] Creatinine [Mass/Vol] 0.68 mg/dL Normal 0.52-1.25 [facility] Comment on above: Performed By: #### C UA2 #### [place] [address] [place], [place] GFR/1.73 sq M.predicted among blacks MDRD (S/P/Bld) [Vol rate/Area] mL/min/{1.73_m2} Normal >60 [facility] Comment on above: Performed By: #### C UA2 #### [address] GFR/1.73 sq M.predicted among non-blacks MDRD (S/P/Bld) [Vol rate/Area] 85.8 mL/min/{1.73_m2} Normal >60 [facility] Comment on above: Result Comment: [...] secretion. Performed By: #### C UA2 #### [address] Potassium [Moles/Vol] 4.0 mmol/L Normal 3.5-5.1 [facility] Comment on above: Performed By: #### C UA2 #### [place] [address] [place], [place] Chloride [Moles/Vol] 105 mmol/L Normal 98-107 [facility] Comment on above: Performed By: #### C UA2 #### [facility] [address] [place], [place] Sodium [Moles/Vol] 135 mmol/L Normal 135-145 [facility] Comment on above: Performed By: #### C UA2 #### [place] [address] [place], [place] Basic Metabolic Panel w/ Ref swapna [...] P INF mL/min [facility] EGFR IF NonAfrican Albanian 85.8 mL/min 60 - PINF mL/min [facility] Comment on above: KDIGO guidelines pro vide [...] - 20 mg/dL [facility] Test Performed by [facility], [address] [place] [id number] [place] [address] LAB [facility] Complete Urinalysison 2021 Appearance (U) Turbid Abnormal Clear [facility] Comment on above: Result Comment: . Performed By: #### C UA2 #### [place] [address] [address] [place], [place] Bacteria Many Abnormal Negative [facility] Comment on above: Result Comment: . Performed By: #### C UA2 #### [place] [address] [place], [place] Bilirubin,Urine Negative Normal Negative [facility] Comment on above: Result Comment: . Performed By: #### C UA2 #### [place] [address] [address] [place], [place] Cast, Hyaline Negative Normal Negative [facility] Comment on above: Result Comment: . Performed By: #### C UA2 #### [place] [address] [place], [place] Color (U) Light-Yellow Normal Lt. Yellow [facility] Comment on above: Result Comment: . Performed By: #### C UA2 #### [place] [address] [place], [place] Glucose Ql (U) Normal Normal Normal (<70) [facility] Comment on above: Result Comment: . Performed By: #### C UA2 #### [place] [address] [address] [place], [place] Ketone,Urine Negative Normal Negative [facility] Comment on above: Result Comment: . Performed By: #### C UA2 #### [address] Leukocytes,Urine 500 Anamika/uL Abnormal Negative [facility] Comment on above: Result Comment: . Performed By: #### C UA2 #### [place] [address] [address] [place], [place] Mucous Threads Few Normal Negative [facility] Comment on above: Result Comment: . Performed By: #### C UA2 #### [place] [address] [address] [place], [place] Nitrites,Urine Positive Abnormal Negative [facility] Comment on above: Result Comment: . Performed By: #### C UA2 #### [place] [address] [address] [place], [place] Occult Blood,Urine 1.0 mg/dL Abnormal Negative [facility] Comment on above: Result Comment: . Performed By: #### C UA2 #### [place] [address] [address] [place], [place] pH,Urine 6.0 Normal 5.0-8.0 [facility] Comment on above: Result Comment: . Performed By: #### C UA2 #### [place] [address] [address] [place], [place] Protein (U) [Mass/Vol] 20 mg/dL Abnormal Negative [facility] Comment on above: Result Comment: . Performed By: #### C UA2 #### [place] [address] [address] [place], [place] RBC, Urine 6 - 10 Abnormal 0-2 [facility] Comment on above: Result Comment: . Performed By: #### C UA2 #### [place] [address] [address] [place], [place] Specific [place],Urine 1.006 Normal 1.005 - 1.030 [facility] Comment on above: Result Comment: . Performed By: #### C UA2 #### [place] [address] [address] [place], [place] Squamous Epithelial 0 - 2 Normal 3-5 [facility] Comment on above: Result Comment: . Performed By: #### C UA2 #### [place] [address] [address] [place], [place] Urobilinogen,Urine Normal Normal Normal (0-1) [facility] Comment on above: Result Comment: . Performed By: #### C UA2 #### [place] [address] [place] [address] WBC, Urine 51 - 100 Abnormal 0-5 [facility] Comment on above: Result Comment: . Performed By: #### C UA2 #### [address] [address] Urinalysison 09-17-2022 Appearance (U) Turbid Abnormal Clear [...] /[HPF] [facility] Comment on above: . Specific Haines, Urine 1.006 S [facility] Comment on above: . Squam Epithel, UA 0-2 3 - 5 /[HPF] [facility] Comment on above: . Urobilinogen, Urine Normal Normal ( 0-1) mg/dL [facility] Comment on above: . WBC, UA /[HPF] Abnormal 0 - 5 /[HPF] [facility] Comment on above: . Test Performed by [facility], [address] [place] [id number] [facility] GENTAMICIN:SUSC:PT:ISOLATE:O RDQN:MICon 08-31-2022 Gentamicin MEGGAN [Susc] >100,000 cfu/ml Klebsiella pneumoniae subsp ozaenae [facility] Work Phone: Gentamicin MEGGAN [Susc]on 10-0 Klebsiella pneumoniae subsp ozaenae Klebsiella pneumoniae subsp ozaenae [facility] Work Phone: No Panel Informationon 08-11 Culture Urine <10,000 cfu/ml. No Significant growth. Sensitivity not indicated. [facility] Work Phone: CR Abdomen APon 07-14-2022 CR Abdomen AP Patient Name: SURINDER RASHEED Diagnostic Radiology ACCESSION EXAM DATE/TIME PROCEDURE ORDERING PROVIDER [id number] 07/14/2022 12:13 EDT CR Abdomen AP MD RAMOS JOSHUA B CPT code 49203 Reason For Exam (CR Abdomen AP) Calculus [...] Transcribed Date and Time: 07/16/2022 11:58 Normal [facility] LABORATORYOrdered By: Shawn Jeffers on 07-06-2022 Albumin [...] 03-18-2022 CR Abdomen AP Patient Name: SURINDER RASHEED Diagnostic Radiology ACCESSION EXAM DATE/TIME PROCEDURE ORDERING PROVIDER [id number] 03/18/2022 14:16 EDT CR Abdomen AP MD RAMOS JOSHUA B CPT code 83929 Reason For Exam (CR Abdomen AP) Calculus [...] NICHOLAS Transcribed Date and Time: 03/18/2022 2:52 [facility] Calculi Analysis(Stone)on Calculi Composition See Note [facility] Comment on above: Result Comment: Callaway calculi [...] composition determined by FTIR analysis. Performed By: [facility] [address] [place] [id number] Grease Press Helper: Gayle Dolan MD Performed By: #### C ALCO #### The performing lab is in the report. Calculi Description See Note [facility] Comment on above: Result Comment: Spec imen consists of numerous callaway and white calculi fragments. Specimen was not received in the preferred dry state. The presence of liquid, blood, gel, or adhesive often delays analysis. The total weight is 2418 mg. Performed By: #### C ALCO #### The performing lab is in the report. Calculi Mass [address] [facility] Comment on above: Performed By: #### C ALCO #### The performing lab is in the report. ANTONINOon 03-15-2022 CNOV Office Visit (UCWSTR ) SURINDER RASHEED ([id number]) 1950 F Date Time Provider Department 03/15/22 [...] by the patient and a relative. No bilingual speech language pathologist was used. JACQUI Rasheed is a 72 year old female who presents today for CC of allergies reaction to dressing from kidney stone surgery last week. Patient had kidney stones removed last week at [facility] and had large dressing applied. Daughter [...] have confirmed and edited as necessary, the [facility] Review of Systems Constitutional: Negative for [...] which included preparing to see the patient, [id number] patient care, performing a medically appropriate examination, [...] detail warranting prompt ER evaluation. Aleida Mitchell APRN.WAREHOUSE WORKER Referring Provider: SELF [200] Allergies As of [...] in disco (more content not included)... Normal [facility] Basic Metabolic Panelon - Calcium [Mass/Vol] 8.9 mg/dL Normal 8.4-10.4 [facility] Comment on above: Performed By: #### B MP3, HEMOG #### [facility] [address] [place] [address] Anion gap [Moles/Vol] 6 mmol/L Normal 3-13 [facility] Comment on above: Performed By: #### B MP3, HEMOG #### [facility] [address] [place] [address] CO2 [Moles/Vol] 24 mmol/L Normal 22-30 [facility] Comment on above: Performed By: #### B MP3, HEMOG #### [facility] [address] [place] [address] Creatinine [Mass/Vol] 0.72 mg/dL Normal 0.52-1.25 [facility] Comment on above: Performed By: #### B MP3, HEMOG #### [facility] [address] [place] [address] GFR/1.73 sq M.predicted among blacks MDRD (S/P/Bld) [Vol rate/Area] mL/min/{1.73_m2} Normal >60 [facility] Comment on above: Performed By: #### B MP3, HEMOG #### [facility] [address] [place] [address] GFR/1.73 sq M.predicted among non-blacks MDRD (S/P/Bld) [Vol rate/Area] 82.4 mL/min/{1.73_m2} Normal >60 [facility] Comment on above: Result Comment: KDIG [...] Performed By: #### B MP3, HEMOG #### [place] [address] [place], [place] Glucose [Mass/Vol] 112 mg/dL High 70-100 [facility] Comment on above: Performed By: #### Myah MP3, HEMOG #### [address] Urea nitrogen [Mass/Vol] 14 mg/dL Normal 9-20 [facility] Comment on above: Performed By: #### B MP3, HEMOG #### [place] [address] [place], [place] Chloride [Moles/Vol] 98 mmol/L Normal 98-107 [facility] Comment on above: Performed By: #### B MP3, HEMOG #### [address] Potassium [Moles/Vol] 2.9 mmol/L Low 3.5-5.1 [facility] Comment on above: Performed By: #### B MP3, HEMOG #### [address] Sodium [Moles/Vol] 127 mmol/L Low 135-145 [facility] [employer] [facility] Comment on above: Performed By: #### B MP3, HEMOG #### [facility] [address] [place] [address] Anion gap [Moles/Vol] 6 mmol/L 3 - 13 mmol/L [facility] Work Phone: Calcium [Mass/Vol] 8.9 mg/dL 8.4 - 10. 4 mg/dL [facility] Work Phone: Chloride [Moles/Vol] 98 mmol/L 98 - 10 7 mmol/L [facility] Work Phone: CO2 [Moles/Vol] 24 mmol/L 22 - 30 mmol/L [facility] Work Phone: [phone] Creatinine [Mass/Vol] 0.72 mg/dL 0.52 - 1.25 mg/dL [facility] Work Phone: EGFR IF NonAfrican Albanian 82.4 mL/min >60 [facility] Work Phone: Comment on above: KDIGO guidelines [...] MDRD (S/P/Bld) [Vol rate/Area] mL/min/{1.73_m2} >60 mL/min [facility] Work Phone: Glucose [Mass/Vol] 112 mg/dL High 70 - 100 mg/dL [facility] Work Phone: Interpretation and review of laboratory results Abnormal [employer] Work Phone: 1 Potassium [Moles/Vol] 2.9 mmol/L Low 3.5 - 5.1 mmol/L [facility] Work Phone: 1 Sodium [Moles/Vol] 127 mmol/L Low 135 - 145 mmol/L [employer] Work Phone: 1 Urea nitrogen (BldV) [Mass/Vol] 14 mg/dL 9 - 20 mg/dL [facility] Work Phone: 1 Test Performed by [employer], [address] [place] [id number] [facility] Work Phone: 1 CBCon 03-14-2022 Hematocrit (Bld) [Volume fraction] 29.4 % Low 35.0 - 47.0 % [facility] Work Phone: Hemoglobin.gastrointest inal spec 1 Ql (Stl) 10.2 g/dL Low 11.7 - 16.0 g/dL [facility] Work Phone: 1 Interpretation and review of laboratory results Abnormal [facility] Work Phone: 1 MCH (RBC) [Entitic mass] 32.4 pg 26.0 - 34.0 pg [facility] Work Phone: MCHC (RBC) [Mass/Vol] 34.7 % 32.0 - 36.0 % [facility] Work Phone: MCV (RBC) [Entitic vol] 93.2 fL 79.0 - 98.0 fL [facility] Work Phone: Platelet distribution width (Bld) [Ratio] 14.3 % 11.5 - 14.5 % [facility] Work Phone: Platelet mean volume (Bld) [Entitic vol] 7.1 fL Low 7.4 - 10.4 fL [facility] Work Phone: Platelets (Bld) [#/Vol] 180 10*3/uL 140 - 440 10*3/uL [employer] Work Phone: RBC (Bld) [#/Vol] 3.15 10*6/uL Low 3.80 - 5.2 0 10*6/uL [facility] Work Phone: WBC (Bld) [#/Vol] 6.9 10*3/uL 3.6 - 10.7 10*3/uL [facility] Work Phone: Test Performed by [facility] [employer] [facility], [address] [place] [id number] [place] [address] - [facility] Work Phone: Hemogramon 03-14-2022 Erythrocyte distribution width (RBC) [Ratio] 14.3 % Normal 11.5-14.5 [facility] Comment on above: Performed By: #### B MP3, HEMOG #### [place] [address] [place], [place] Hematocrit (Bld) [Volume fraction] 29.4 % Low 35.0-47.0 [facility] Comment on above: Performed By: #### B MP3, HEMOG #### [address] Hemoglobin (Bld) [Mass/Vol] 10.2 g/dL Low 11.7-16.0 [facility] Comment on above: Performed By: #### B MP3, HEMOG #### [address] MCH (RBC) [Entitic mass] 32.4 pg Normal 26.0-34.0 [facility] Comment on above: Performed By: #### B MP3, HEMOG #### [place] [address] [place], [place] MCHC 34.7 % Normal 32.0-36.0 [facility] Comment on above: Performed By: #### B MP3, HEMOG #### [address] MCV (RBC) [Entitic vol] 93.2 fL Normal 79.0-98.[address] [facility] Comment on above: Performed By: #### B MP3, HEMOG #### [address] Platelet mean volume (Bld) [Entitic vol] 7.1 fL Low 7.4-10.4 [facility] Comment on above: Performed By: #### B MP3, HEMOG #### [facility] [address], [place] Platelets (Bld) [#/Vol] 180 10*3/uL Normal 140-440 [facility] Comment on above: Performed By: #### B MP3, HEMOG #### [place] [address] [place], [place] RBC (Bld) [#/Vol] 3.15 10*6/uL Low 3.80-5.20 [facility] Comment on above: Performed By: #### B MP3, HEMOG #### [place] [address] [place], [place] WBC (Bld) [#/Vol] 6.9 10*3/uL Normal 3.6-10.7 [facility] Comment on above: Performed By: #### B MP3, HEMOG #### [place] [address] [place], [place] Basic Metabolic Panelon 04-1 Calcium [Mass/Vol] 8.6 mg/dL Normal 8.4-10.4 [facility] Comment on above: Performed By: #### H VERENICEF BMP3 #### [place] [address] [place], [place] Glucose [Mass/Vol] 126 mg/dL High 70-100 [facility] Comment on above: Performed By: #### H EMDRamonita BMP3 #### [place] [address] [place], [place] Urea nitrogen [Mass/Vol] 11 mg/dL Normal 9-20 [facility] Comment on above: Performed By: #### H EMDF BMP3 #### [place] [address] [place], [place] Anion gap [Moles/Vol] 4 mmol/L Normal 3-13 [facility] Comment on above: Performed By: #### H ERICA BMP3 #### [address] CO2 [Moles/Vol] 23 mmol/L Normal 22-30 [facility] Comment on above: Performed By: #### H ERICA BMP3 #### [address] Creatinine [Mass/Vol] 0.75 mg/dL Normal 0.52-1.25 [facility] Comment on above: Performed By: #### H ERICA BMP3 #### [address] GFR/1.73 sq M.predicted among blacks MDRD (S/P/Bld) [Vol rate/Area] mL/min/{1.73_m2} Normal >60 [facility] Comment on above: Performed By: #### H ERICA BMP3 #### [address] GFR/1.73 sq M.predicted among non-blacks MDRD (S/P/Bld) [Vol rate/Area] 78.4 mL/min/{1.73_m2} Normal >60 [facility] Comment on above: Result Comment: KDIG [...] Performed By: #### H ERICA BMP3 #### [address] [address] Potassium [Moles/Vol] 3.2 mmol/L Low 3.5-5.1 [facility] Comment on above: Performed By: #### H LY MALDONADO3 #### [facility] [address] [place], [place] Chloride [Moles/Vol] 104 mmol/L Normal 98-107 [facility] Comment on above: Performed By: #### H LY MALDONADO3 #### [facility] [address] [place], [place] Sodium [Moles/Vol] 130 mmol/L Low 135-145 [facility] Comment on above: Performed By: #### H LY MALDONADO3 #### [facility] [address] [place], [place] Anion gap [Moles/Vol] 4 mmol/L 3 - 13 mmol/L [facility] Calcium [Mass/Vol] 8.6 mg/dL 8.4 - 10. 4 mg/dL [facility] Chloride [Moles/Vol] 104 mmol/L 98 - 10 7 mmol/L [facility] CO2 [Moles/Vol] 23 mmol/L 22 - 30 mmol/L [facility] Creatinine [Mass/Vol] 0.75 mg/dL 0.52 - 1.25 mg/dL [facility] EGFR IF NonAfrican Albanian 78.4 mL/min >60 [facility] Comment on above: KDIGO guidelines pro vide [...] - 20 mg/dL [facility] Test Performed by [facility], [address] [place] [id number] [place] [address] LAB [facility] CBC with Auto Differentialon 03-13-2022 [...] 11.5 g/dL Low 11.7 - 16.0 g/dL [facility] Interpretation and review of laboratory results Abnormal [...] - 10.7 10*3/uL [facility] Test Performed by [id number] [place] [address] LAB [facility] CR Abdomen APon 03-13-2022 CR Abdomen AP Patient Name: SURINDER RASHEED Diagnostic Radiology ACCESSION EXAM DATE/TIME PROCEDURE ORDERING PROVIDER [id number] 03/13/2022 12:44 EDT CR Abdomen AP John MARCANO FABRICE H CPT code 98623 Reason For Exam (CR Abdomen AP) Renal [...] Transcribed Date and Time: 03/13/2022 12:55 Normal [facility] Hemogram w/ Autodiffon 03-13 Abs Baso Cnt 0.0 10*3/uL Normal 0.0-0.2 [facility] Comment on above: Performed By: #### C UA2 #### [facility] [address] [place] [address] Abs Neutrophile Cnt 6.1 10*3/uL Normal 1.8-7.0 [facility] Comment on above: Performed By: #### C UA2 #### [place] [address] [place] [address] Basophils/100 WBC (Bld) 0.4 % Normal 0.0-2.[address] [facility] Comment on above: Performed By: #### C UA2 #### [place] [address] [place] [address] Eosinophils (Bld) [#/Vol] 0.0 10*3/uL Normal 0.0-0.5 [facility] Comment on above: Performed By: #### C UA2 #### [place] [address] [place], [place] Eosinophils/100 WBC (Bld) 0.1 % Low 1.0-6.0 [facility] Comment on above: Performed By: #### C UA2 #### [place] [address] [place], [place] Erythrocyte distribution width (RBC) [Ratio] 14.2 % Normal 11.5-14.5 [facility] Comment on above: Performed By: #### C UA2 #### [place] [address] [place], [place] Granulocytes/100 WBC (Bld) 85.0 % High 40.0-80.0 [facility] Comment on above: Performed By: #### C UA2 #### [place] [address] [place] [address] Hematocrit (Bld) [Volume fraction] 33.3 % Low 35.0-47.0 [facility] Comment on above: Performed By: #### C UA2 #### [place] [address] [place], [place] Hemoglobin (Bld) [Mass/Vol] 11.5 g/dL Low 11.7-16.0 [facility] Comment on above: Performed By: #### C UA2 #### [facility] [address], [place] Lymphocytes (Bld) [#/Vol] 0.5 10*3/uL Low 1.0-4.3 [facility] Comment on above: Performed By: #### C UA2 #### [facility] [address] [place], [place] Lymphocytes/100 WBC (Bld) 7.6 % Low 20.0-40.0 [facility] Comment on above: Performed By: #### C UA2 #### [place] [address] [place], [place] MCH (RBC) [Entitic mass] 33.0 pg Normal 26.0-34.0 [facility] Comment on above: Performed By: #### C UA2 #### [place] [address] [place], [place] MCHC 34.5 % Normal 32.0-36.0 [facility] Comment on above: Performed By: #### C UA2 #### [place] [address] [place], [place] MCV (RBC) [Entitic vol] 95.7 fL Normal 79.0-98.[address] [facility] Comment on above: Performed By: #### C UA2 #### [place] [address] [place], [place] Monocytes (Bld) [#/Vol] 0.5 10*3/uL Normal 0.0-0.8 [facility] Comment on above: Performed By: #### C UA2 #### [place] [address] [place], [place] Monocytes/100 WBC (Bld) 6.9 % Normal 2.0-10.[address] [facility] Comment on above: Performed By: #### C UA2 #### [place] [address] [place], [place] Platelet mean volume (Bld) [Entitic vol] 7.5 fL Normal 7.4-10.4 [facility] Comment on above: Performed By: #### C UA2 #### [place] [address] [place], [place] Platelets (Bld) [#/Vol] 203 10*3/uL Normal 140-440 [facility] Comment on above: Performed By: #### C UA2 #### [place] [address] [place], [place] RBC (Bld) [#/Vol] 3.48 10*6/uL Low 3.80-5.20 [facility] Comment on above: Performed By: #### C UA2 #### [place] [address] [place], [place] WBC (Bld) [#/Vol] 7.1 10*3/uL Normal 3.6-10.7 [facility] Comment on above: Performed By: #### C UA2 #### [place] [address] [place], [place] XR ABDOMEN (KUB) (SINGLE AP VIEW)on 03-13-2022 Patient Name: SURINDER RASHEED Diagnostic Radiology ACCESSION EXAM DATE/TIME PROCEDURE ORDERING PROVIDER [id number] 03/13/2022 12:44 EDT CR Abdomen AP John MARCANO FABRICE H CPT code 01656 Reason For Exam (CR Abdomen AP) Renal [...] KEVIN Transcribed Date and Time: 03/13/2022 12:55 [facility] RAD Elie Villanueva MD - 03/13/2022 Patient Name: SURINDER RASHEED Diagnostic Radiology ACCESSION EXAM DATE/TIME PROCEDURE ORDERING PROVIDER [id number] 03/13/2022 12:44 EDT CR Abdomen AP John MARCANO FABRICE H CPT code 21404 Reason For Exam (CR Abdomen AP) Renal [...] KEVIN Transcribed Date and Time: 03/13/2022 12:55 [facility] Work Phone: [facility] Work Phone: Radiology Study observation (narrative) [facility] Work Phone: Basic Metabolic Panelon 02-26 Calcium [Mass/Vol] 9.7 mg/dL Normal 8.4-10.4 [facility] Comment on above: Performed By: #### H OMAR BMP3 #### [address] [address] Glucose [Mass/Vol] 102 mg/dL High 70-100 [facility] Comment on above: Performed By: #### H RAFAELG BMP3 #### [address] [place] [address] [place] [address] Urea nitrogen [Mass/Vol] 10 mg/dL Normal 9-20 [facility] Comment on above: Performed By: #### H EMOG, BMP3 #### [facility] [address] [place], [place] Anion gap [Moles/Vol] 6 mmol/L Normal 3-13 [facility] Comment on above: Performed By: #### H EMOG, BMP3 #### [facility] [address] [place], [place] CO2 [Moles/Vol] 27 mmol/L Normal 22-30 [facility] Comment on above: Performed By: #### H EMOG, BMP3 #### [facility] [address], [place] Creatinine [Mass/Vol] 0.62 mg/dL Normal 0.52-1.25 [facility] Comment on above: Performed By: #### H EMOG, BMP3 #### [facility] [address], [place] GFR/1.73 sq M.predicted among blacks MDRD (S/P/Bld) [Vol rate/Area] mL/min/{1.73_m2} Normal >60 [facility] Comment on above: Performed By: #### H EMOObdulia, BMP3 #### [facility] [address], [place] GFR/1.73 sq M.predicted among non-blacks MDRD (S/P/Bld) [Vol rate/Area] 88.7 mL/min/{1.73_m2} Normal >60 [facility] Comment on above: Result Comment: [...] Performed By: #### H PRAVEEN NELSON #### [facility] [address] [place] [address] Potassium [Moles/Vol] 3.3 mmol/L Low 3.5-5.1 [facility] Comment on above: Performed By: #### H PRAVEEN NELSON #### [facility] [address], [place] Sodium [Moles/Vol] 138 mmol/L Normal 135-145 [facility] Comment on above: Performed By: #### H PRAVEEN NELSON #### [facility] [address] [place], [place] Chloride [Moles/Vol] 105 mmol/L Normal 98-107 [facility] Comment on above: Performed By: #### H PRAVEEN NELSON #### [facility] [address] [place], [place] Anion gap [Moles/Vol] 6 mmol/L 3 - 13 mmol/L [facility] Calcium [Mass/Vol] 9.7 mg/dL 8.4 - 10. 4 mg/dL [facility] Chloride [Moles/Vol] 105 mmol/L 98 - 10 7 mmol/L [facility] CO2 [Moles/Vol] 27 mmol/L 22 - 30 mmol/L [facility] Creatinine [Mass/Vol] 0.62 mg/dL 0.52 - 1.25 mg/dL [facility] EGFR IF NonAfrican Albanian 88.7 mL/min >60 [facility] Comment on above: KDIGO guidelines pro vide [...] - 20 mg/dL [facility] Test Performed by [id number] [place] [address] LAB [facility] CBCon 03-12-2022 Hematocrit (Bld) [Volume fraction] 35.8 % 35.0 - 47.0 % [facility] Hemoglobin.gastrointest inal spec 1 Ql (Stl) 12.1 g/dL 11.7 - 16.0 g/dL [facility] Interpretation and review of laboratory results Abnormal [...] - 10.7 10*3/uL [facility] Test Performed by [facility], [address] [place] [id number] [facility] LAB [facility] Hemogramon 03-12-2022 Erythrocyte distribution width (RBC) [Ratio] 14.3 % Normal 11.5-14.5 [facility] Comment on above: Performed By: #### H OMAR BMP3 #### [place] [address] [place], [place] Hematocrit (Bld) [Volume fraction] 35.8 % Normal 35.0-47.0 [facility] Comment on above: Performed By: #### H OMAR BMP3 #### [address] Hemoglobin (Bld) [Mass/Vol] 12.1 g/dL Normal 11.7-16.0 [facility] Comment on above: Performed By: #### H OMAR BMP3 #### [address] MCH (RBC) [Entitic mass] 32.1 pg Normal 26.0-34.0 [facility] Comment on above: Performed By: #### H OMAR BMP3 #### [address] MCHC 33.6 % Normal 32.0-36.0 [facility] Comment on above: Performed By: #### H OMAR BMP3 #### [address] MCV (RBC) [Entitic vol] 95.4 fL Normal 79.0-98.[address] [facility] Comment on above: Performed By: #### H OMAR BMP3 #### [address] Platelet mean volume (Bld) [Entitic vol] 7.3 fL Low 7.4-10.4 [facility] Comment on above: Performed By: #### H OMAR BMP3 #### [address] Platelets (Bld) [#/Vol] 226 10*3/uL Normal 140-440 [facility] Comment on above: Performed By: #### H LY NELSON3 #### [facility] [address] [place], [place] RBC (Bld) [#/Vol] 3.76 10*6/uL Low 3.80-5.20 [facility] Comment on above: Performed By: #### H LY NELSON3 #### [facility] [address] [facility] [place] WBC (Bld) [#/Vol] 4.4 10*3/uL Normal 3.6-10.7 [facility] Comment on above: Performed By: #### H LY NELSON3 #### [facility] [address] [place], [place] OPERATIVE REPORTon Ordered by an unspecified provider. [facility] Op Noteon 03-12-2022 Op Note Operative Report Pre Op Diagnosis right Renal Calculus, greater than 2cm Post Op Diagnosis Same Operation RIGHT PCNL Surgeon Sarath Ramos MD Baking [employer]ano Drains 6 X 26 JJ [...] to recovery room in stable condition. Normal [facility] [employer] [facility] Prothrombin Timeon 2 INR 1.0 Normal 0.9-1.1 [facility] [employer] [facility] Comment on above: Result Comment: Jarrod mmended [...] Infarction Performed By: #### P T #### [facility] [employer] [address] [place] [phone] PT Coag (PPP) [Time] 11.1 s Normal 9.0-12.0 [facility] [employer] [facility] Comment on above: Result Comment: . Performed By: #### P T #### [facility] [employer] [address] [address] Protime-INRon 03-12-2022 INR Coag (Bld) [Relative time] 1.0 {INR} [facility] Comment on above: Recommended Anticoag ulant Therapy: [...] Comment on above: . Test Performed by [address] [address] [facility] Special treatments and proce dureson 03-12-2022 Patient Name: SURINDER RASHEED Special Procedures ACCESSION EXAM DATE/TIME PROCEDURE ORDERING PROVIDER [id number] 03/12/2022 11:15 EDT [facility] Special Angiography MD [...] lidocaine, deep sedation was administered by a financial services representative from the department of anesthesiology. Please refer [...] pelvis. 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 A small amount of contrast was injected through the Berenstein catheter, confirming intraluminal placement. Exchange was then made for an Amplatz superstiff wire. The tract was dilated and a new 10 Syrian dual lumen nephroureterostomy tube was advanced over [...] is successful placement of a new 10 Syrian dual lumen percutaneous nephroureterostomy catheter via a posterior right interpolar calyx, with the tip in the (more content not included)... [facility] Elie Victoria MD - 03/12/2022 Patient Name: SURINDER RASHEED Special Procedures ACCESSION EXAM DATE/TIME PROCEDURE ORDERING PROVIDER [id number] 03/12/2022 11:15 EDT [facility]A Special Angiography MD [...] lidocaine, deep sedation was administered by a financial services representative from the department of anesthesiology. Please refer [...] pelvis. 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 A small amount of contrast was injected through the Berenstein catheter, confirming intraluminal placement. Exchange was then made for an Amplatz superstiff wire. The tract was dilated and a new 10 Syrian dual lumen nephroureterostomy tube was advanced over [...] is successful placement of a new 10 Syrian dual lumen percutaneous nephroureterostomy catheter via a posterior right interpolar calyx, with the tip in the urinary bladder. IMPRESSION: Successful placement of a new 10 Syrian dual lumen nephroureterostomy catheter with the tip in the urinary (more content not included)... [facility] Work Phone: [facility] Work Phone: Radiology Study observation (narrative) [facility] Work Phone: [facility] Special Angiography Proce dureon 03-12-2022 [facility] Special Angiography Procedure Patient Name: SURINDER RASHEED Special Procedures ACCESSION EXAM DATE/TIME PROCEDURE ORDERING PROVIDER [id number] 03/12/2022 11:15 EDT [facility] Special Angiography MD [...] lidocaine, deep sedation was administered by a financial services representative from the department of anesthesiology. Please refer [...] pelvis. 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 A small amount of contrast was injected through the Berenstein catheter, confirming intraluminal placement. Exchange was then made for an Amplatz superstiff wire. The tract was dilated and a new 10 Syrian dual lumen nephroureterostomy tube was advanced over [...] is successful placement of a new 10 Syrian dual lumen percutaneous nephroureterostomy catheter via a posterior right interpolar calyx, with the tip in the urinary bladder. IMPRESSION: Successful placement of a new 10 Syrian dual lumen nephroureterostomy catheter with the tip in the urinary bladder via a right posterior interpolar renal calyx. Report Dictated on Workstation: (more content not included)... Normal [facility] Basic Metabolic Panelon 04-0 -2021 Anion gap [Moles/Vol] 10 mmol/L Normal 3-13 [facility] Comment on above: Performed By: #### H RONEL BMP3 #### [facility] [address] [place] [address] Calcium [Mass/Vol] 9.8 mg/dL Normal 8.4-10.4 [facility] Comment on above: Performed By: #### H RONEL BMP3 #### [facility] [address] [place] [address] CO2 [Moles/Vol] 25 mmol/L Normal 22-30 [facility] Comment on above: Performed By: #### H RONEL BMP3 #### [address] [place] [address] Glucose [Mass/Vol] 91 mg/dL Normal 70-100 [facility] Comment on above: Performed By: #### H ADAMCT BMP3 #### [facility] [address] [place] [address] Urea nitrogen [Mass/Vol] 14 mg/dL Normal 9-20 [facility] Comment on above: Performed By: #### H ADAMCT BMP3 #### [address] [address] [place] [address] Creatinine [Mass/Vol] 0.74 mg/dL Normal 0.52-1.25 [facility] Comment on above: Performed By: #### H ADAMCT BMP3 #### [address] [address] [place], [place] GFR/1.73 sq M.predicted among blacks MDRD (S/P/Bld) [Vol rate/Area] mL/min/{1.73_m2} Normal >60 [facility] Comment on above: Performed By: #### H GHCT, BMP3 #### [facility] [address], [place] GFR/1.73 sq M.predicted among non-blacks MDRD (S/P/Bld) [Vol rate/Area] 79.7 mL/min/{1.73_m2} Normal >60 [facility] Comment on above: Result Comment: KDIG [...] Performed By: #### H GHCT, BMP3 #### [facility] [address], [place] Potassium [Moles/Vol] 3.3 mmol/L Low 3.5-5.1 [facility] Comment on above: Performed By: #### H GHCT, BMP3 #### [facility] [address], [place] Chloride [Moles/Vol] 102 mmol/L Normal 98-107 [facility] Comment on above: Performed By: #### H GHCT, BMP3 #### [facility] [address], [place] Sodium [Moles/Vol] 137 mmol/L Normal 135-145 [facility] Comment on above: Performed By: #### H GHCT, BMP3 #### [facility] [address], [place] Hemoglobin AND Hematocriton 03-05-2022 Hematocrit (Bld) [Volume fraction] 37.6 % Normal 35.0-47.0 [facility] Comment on above: Performed By: #### H GHCT, BMP3 #### [facility] [address], [place] Hemoglobin (Bld) [Mass/Vol] 13.1 g/dL Normal 11.7-16.0 [facility] Comment on above: Performed By: #### H GHCT, BMP3 #### [facility] [address], [place] No Panel Informationon 02-18 Culture Urine 10,000 - 50,000 cfu/ml Multiple bacterial morphotypes present. Probable Contamination. Suggest recollection if clinically indicated. [facility] Work Phone: No Panel Informationon 01-28 Culture Urine 50,000 - 100,000 cfu/ml Multiple bacterial morphotypes present. Probable Contamination. Suggest recollection if clinically indicated. [facility] Work Phone: LABORATORYOrdered By: Shanell Burgos on [...] Probable Contamination. Suggest recollection if clinically indicated. [facility] Work Phone: No Panel Informationon 11-04 Culture Urine 10,000 - 50,000 cfu/ml Mixed growth consistent with normal urogenital clarisse. [facility] Work Phone: LABORATORYOrdered By: Alea Arriaza on [...] below the analytical sensitivity of the test. [facility] Work Phone: Comment on above: As with all in vitro diagnostic tests, positive and negative predictive values are highly dependent on prevalence. The [employer] C. difficile PCR Assay performance may vary depending on the prevalence and population tested. LABORATORYOrdered By: Magalie Contreras on 10-05-2021 Albumin BCP dye [Mass/Vol] [...] 162.6 cm Shaun Eastman MD Work Phone: [facility] 03-06-2025 09:26-0400 Body mass index (BMI) [Ratio] 29.7 kg/m2 Shaun Eastman MD Work Phone: [facility] 03-06-2025 09:26-0400 Body weight 78.47 kg Shaun Eastman MD Work Phone: [facility] 03-06-2025 09:26-0400 Diastolic blood pressure 71 mm[Hg] Shaun Eastman MD Work Phone: [facility] 03-06-2025 09:26-0400 Heart rate 74 /min Shaun Eastman MD Work Phone: [facility] 03-06-2025 09:26-0400 Systolic blood pressure 113 mm[Hg] Shaun Eastman MD Work Phone: [facility] 02-19-2025 15:45-0400 Diastolic blood pressure 73 mm[Hg] Sarath Ramos MD Work Phone: [facility] 02-19-2025 15:45-0400 Heart rate 84 /min Sarath Ramos MD Work Phone: [facility] 02-19-2025 15:45-0400 Respiratory rate 16 /min Sarath Ramos MD Work Phone: [facility] 02-19-2025 15:45-0400 SaO2% (BldA) [Mass fraction] 94 % Sarath Ramos MD Work Phone: [facility] 02-19-2025 15:45-0400 Systolic blood pressure 109 mm[Hg] Sarath Ramos MD Work Phone: [facility] 02-19-2025 15:05-0400 Body temperature 98.91 [degF] Sarath Ramos MD Work Phone: [facility] 02-07-2025 11:08-0400 Body height 162.6 cm Kiara Wayne PA-C Work Phone: [facility] 02-07-2025 11:08-0400 Body mass index (BMI) [Ratio] 24.03 kg/m2 Kiara Whitevis PA-C Work Phone: [facility] 02-07-2025 11:08-0400 Body weight 63.5 kg Kiara Wayne PA-C Work Phone: [facility] 02-07-2025 11:08-0400 Diastolic blood pressure 68 mm[Hg] Kiara Whitevis PA-C Work Phone: [facility] 02-07-2025 11:08-0400 Heart rate 72 /min Kiara Wayne PA-C Work Phone: [facility] 02-07-2025 11:08-0400 Systolic blood pressure 130 mm[Hg] Kiara Whitevis PA-C Work Phone: [facility] 12-28-2024 14:37-0500 Body height 162.[address] Nay Greenwood MD [facility] 12-28-2024 14:37-0500 Body mass index (BMI) [Ratio] 30.1 kg/m2 Dr. Nay Greenwood MD [facility] 12-28-2024 14:37-0500 Body temperature 97.8 [degF] Dr. Nay Greenwood MD [facility] 12-28-2024 14:37-0500 Body weight 79.[address] Nay Greenwood MD [facility] 12-28-2024 14:37-0500 Diastolic blood pressure 91 mm[Hg] Dr. Nay Greenwood MD [facility] 12-28-2024 14:37-0500 Heart rate 74 /min Dr. Nay Greenwood MD [facility] 12-28-2024 14:37-0500 Respiratory rate 16 /min Dr. Nay Greenwood MD [facility] 12-28-2024 14:37-0500 SaO2% (BldA) [Mass fraction] 98 % Dr. Nay Greenwood MD [facility] 12-28-2024 14:37-0500 Systolic blood pressure 132 mm[Hg] Dr. Nay Greenwood MD [facility] 02-14-2024 10:48-0400 Body height 161.3 cm Sarath Ramos MD Work Phone: [facility] 02-14-2024 10:48-0400 Body mass index (BMI) [Ratio] 23.54 kg/m2 Sarath Ramos MD Work Phone: [facility] 02-14-2024 10:48-0400 Body weight 61.24 kg Sarath Ramos MD Work Phone: [facility] 01-06-2024 09:30-0500 Body temperature 97.7 [degF] Sarath Ramos MD Work Phone: [facility] 01-06-2024 09:30-0500 Diastolic blood pressure 79 mm[Hg] Sarath Ramos MD Work Phone: [facility] 01-06-2024 09:30-0500 Heart rate 66 /min Sarath Ramos MD Work Phone: [facility] 01-06-2024 09:30-0500 Respiratory rate 18 /min Sarath Ramos MD Work Phone: [facility] 01-06-2024 09:30-0500 SaO2% (BldA) [Mass fraction] 96 % Sarath Ramos MD Work Phone: [facility] 01-06-2024 09:30-0500 Systolic blood pressure 134 mm[Hg] Sarath Ramos MD Work Phone: [facility] 01-06-2024 05:51-0500 Body height 160 cm Sarath Ramos MD Work Phone: [facility] 01-06-2024 05:51-0500 Body mass index (BMI) [Ratio] 26.56 kg/m2 Sarath Ramos MD Work Phone: [facility] 01-06-2024 05:51-0500 Body weight 68 kg Sarath Ramos MD Work Phone: [employer] 12-06-2023 09:45-0500 Diastolic blood pressure 80 mm[Hg] Sarath Ramos MD Work Phone: [employer] 12-06-2023 09:45-0500 Heart rate 68 /min Sarath Ramos MD Work Phone: [employer] 12-06-2023 09:45-0500 SaO2% (BldA) [Mass fraction] 100 % Sarath Ramos MD Work Phone: [employer] 12-06-2023 09:45-0500 Systolic blood pressure 111 mm[Hg] Sarath Ramos MD Work Phone: [employer] 12-06-2023 09:35-0500 Body temperature 98.01 [degF] Sarath Ramos MD Work Phone: [employer] 12-06-2023 09:35-0500 Respiratory rate 10 /min Sarath Ramos MD Work Phone: [employer] 12-06-2023 06:59-0500 Body height 160 cm Sarath Ramos MD Work Phone: [employer] 12-06-2023 06:59-0500 Body mass index (BMI) [Ratio] 26.57 kg/m2 Sarath Ramos MD Work Phone: [facility] 12-06-2023 06:59-0500 Body weight 68.04 kg Sarath Ramos MD Work Phone: [facility] 11-22-2023 00:46-0500 Blood Pressure Cuff Size DR SWETHA KRAMER DO [facility] 11-22-2023 00:46-[address] SWETHA KRAMER DO [facility] 11-22-2023 00:46-[address] SWETHA KRAMER DO [facility] 11-22-2023 00:46-0500 Body temperature 96.98 [degF] DR SWETHA KRAMER DO [facility] 11-22-2023 00:46-0500 Diastolic Blood Pressure Non-Invasive 88 mm[Hg] DR SWETHA KRAMER DO [facility] 11-22-2023 00:46-0500 Heart rate 79 /min DR SWETHA KRAMER DO [facility] 11-22-2023 00:46-0500 Reason For Taking VItal Signs DR SWETHA KRAMER DO [facility] 11-22-2023 00:46-0500 Respiratory rate 18 /min DR SWETHA KRAMER DO [facility] 11-22-2023 00:46-0500 Systolic Blood Pressure Non-Invasive 167 mm[Hg] DR SWETHA KRAMER DO [facility] 11-20-2023 13:05-[address] MARIA DEL ROSARIO AHILE MD [facility] 11-20-2023 13:05-0500 Body temperature 97.7 [degF] DR MARIA DEL ROSARIO HAILE MD [facility] 11-20-2023 13:05-0500 Diastolic Blood Pressure Non-Invasive 73 mm[Hg] DR MARIA DEL ROSARIO HAILE MD [facility] 11-20-2023 13:05-0500 Heart rate 90 /min DR MARIA DEL ROSARIO HAILE MD [facility] 11-20-2023 13:05-0500 Respiratory rate 16 /min DR MARIA DEL ROSARIO HAILE MD [facility] 11-20-2023 13:05-0500 Systolic Blood Pressure Non-Invasive 112 mm[Hg] DR MARIA DEL ROSARIO HAILE MD [facility] 11-11-2023 23:52-0500 Blood Pressure Cuff Size YOAN GARZONT DO [facility] 11-11-2023 23:52-0500 Blood Pressure Location YOAN KELLEY DO [facility] 11-11-2023 23:52-0500 Blood Pressure Method YOAN KELLEY D O [facility] 11-11-2023 23:52-0500 Body temperature 96.8 [degF] YOAN GARZONT DO [facility] 11-11-2023 23:52-0500 Diastolic Blood Pressure Non-Invasive 94 mm[Hg] YOAN GARZONT DO [facility] 11-11-2023 23:52-0500 Heart rate 86 /min YOAN GARZONT [facility] 11-11-2023 23:52-0500 Reason For Taking VItal Signs YOAN KELLEY [facility] 11-11-2023 23:52-0500 Respiratory rate 18 /min YOAN GARZONT DO [facility] 11-11-2023 23:52-0500 Systolic Blood Pressure Non-Invasive 154 mm[Hg] YOAN GARZONT DO [facility] 11-07-2023 01:01-0500 Body temperature 97.52 [degF] DR SWETHA KRAMER DO [facility] 11-07-2023 01:01-0500 Diastolic Blood Pressure Non-Invasive 99 mm[Hg] DR SWETHA KRAMER DO [facility] 11-07-2023 01:01-0500 Heart rate 86 /min DR SWETHA KRAMER DO [facility] 11-07-2023 01:01-0500 Respiratory rate 16 /min DR SWETHA KRAMER DO [facility] 11-07-2023 01:01-0500 Systolic Blood Pressure Non-Invasive 182 mm[Hg] DR SWETHA KRAMER DO [facility] 11-03-2023 13:11-0500 Body temperature 97.88 [degF] DR DAMIR CHAVARRIA MD [facility] 11-03-2023 13:11-0500 Diastolic Blood Pressure Non-Invasive 78 mm[Hg] DR DAMIR CHAVARRIA MD [facility] 11-03-2023 13:11-0500 Heart rate 86 /min DR DAMIR CHAVARRIA MD [facility] 11-03-2023 13:11-0500 Respiratory rate 16 /min DR DAMIR CHAVARRIA MD [facility] 11-03-2023 13:11-0500 Systolic Blood Pressure Non-Invasive 138 mm[Hg] DR DAMIR CHAVARRIA MD [facility] 12-30-2022 13:00-0500 Body temperature 97 [degF] Dr. Stacey Newberry Work Phone: [facility] 12-30-2022 13:00-0500 Diastolic blood pressure 67 mm[Hg] Dr. Stacey Newberry Work Phone: [facility] 12-30-2022 13:00-0500 Heart rate 78 /min Dr. Stacey Newberry Work Phone: [facility] 12-30-2022 13:00-0500 Respiratory rate 16 /min Dr. Stacey Newberry Work Phone: [facility] 12-30-2022 13:00-0500 SaO2% (BldA) [Mass fraction] 97 % Dr. Stacey Newberry Work Phone: [facility] 12-30-2022 13:00-0500 Systolic blood pressure 115 mm[Hg] Dr. Stacey Newberry Work Phone: [facility] 12-29-2022 16:32-0500 Body height 162.[address] Stacey Newberry Work Phone: [facility] 12-29-2022 16:32-0500 Body weight 59.[address] Stacey Newberry Work Phone: [facility] 12-22-2022 16:17-0500 Body mass index (BMI) [Ratio] 23.8 kg/m2 Dr. Stacey Newberry Work Phone: [facility] 12-15-2022 11:02-0500 Body mass index (BMI) [Ratio] 24.7 kg/m2 Dr. Stacey Newberry Work Phone: [facility] 12-15-2022 11:02-0500 Body weight 65.[address] Stacey Newberry Work Phone: [facility] 12-15-2022 11:02-0500 Diastolic blood pressure 80 mm[Hg] Dr. Stacey Newberry Work Phone: [facility] 12-15-2022 11:02-0500 Heart rate 63 /min Dr. Stacey Newberry Work Phone: [facility] 12-15-2022 11:02-0500 Respiratory rate 18 /min Dr. Stacey Newberry Work Phone: [facility] 12-15-2022 11:02-0500 SaO2% (BldA) [Mass fraction] 98 % Dr. Stacey Newberry Work Phone: [facility] 12-15-2022 11:02-0500 Systolic blood pressure 125 mm[Hg] Dr. Stacey Newberry Work Phone: [facility] 09-17-2022 09:19-0400 Body temperature 97.39 [degF] Sarath Ramos MD Work Phone: [facility] 09-17-2022 09:19-0400 Diastolic blood pressure 82 mm[Hg] Sarath Ramos MD Work Phone: [facility] 09-17-2022 09:19-0400 Heart rate 66 /min Sarath Ramos MD Work Phone: [facility] 09-17-2022 09:19-0400 SaO2% (BldA) [Mass fraction] 98 % Sarath Ramos MD Work Phone: [facility] 09-17-2022 09:19-0400 Systolic blood pressure 129 mm[Hg] Sarath Ramos MD Work Phone: [facility] 09-17-2022 09:15-0400 Body height 160 cm Sarath Ramos MD Work Phone: [facility] 09-17-2022 09:15-0400 Body mass index (BMI) [Ratio] 26.22 kg/m2 Sarath Ramos MD Work Phone: [facility] 09-17-2022 09:15-0400 Body weight 67.13 kg Sarath Ramos MD Work Phone: [facility] 03-15-2022 10:58-0400 Body temperature 98.49 [degF] Aleida Mitchell APRN.WAREHOUSE WORKER Work Phone: [facility] 03-15-2022 10:58-0400 Body weight 72.58 kg Aleida Mitchell APRN.WAREHOUSE WORKER Work Phone: [facility] 03-15-2022 10:58-0400 Diastolic blood pressure 80 mm[Hg] Aleida Mitchell APRN.WAREHOUSE WORKER Work Phone: [facility] 03-15-2022 10:58-0400 Heart rate 85 /min Aleida Stephen RESERVATIONS CLERK.WAREHOUSE WORKER Work Phone: [facility] 03-15-2022 10:58-0400 Respiratory rate 21 /min Aleida Stephen RESERVATIONS CLERK.WAREHOUSE WORKER Work Phone: [facility] 03-15-2022 10:58-0400 SaO2% (BldA) [Mass fraction] 98 % Aleida Stephen RESERVATIONS CLERK.WAREHOUSE WORKER Work Phone: [facility] 03-15-2022 10:58-0400 Systolic blood pressure 98 mm[Hg] Aleida Stephen RESERVATIONS CLERK.WAREHOUSE WORKER Work Phone: [facility] 03-14-2022 08:59-0400 Body temperature 99 [degF] Sarath Ramos MD Work Phone: [facility] 03-14-2022 08:59-0400 Diastolic blood pressure 73 mm[Hg] Sarath Ramos MD Work Phone: [facility] 03-14-2022 08:59-0400 Heart rate 74 /min Sarath Ramos MD Work Phone: [facility] 03-14-2022 08:59-0400 Respiratory rate 16 /min Sarath Ramos MD Work Phone: [facility] 03-14-2022 08:59-0400 SaO2% (BldA) [Mass fraction] 96 % Sarath Ramos MD Work Phone: [facility] 03-14-2022 08:59-0400 Systolic blood pressure 107 mm[Hg] Sarath Ramos MD Work Phone: [facility] 03-12-2022 08:43-0400 Body height 157.5 cm Sarath Ramos MD Work Phone: [facility] 12-28-2021 10:48-0500 Diastolic blood pressure 84 mm[Hg] DR KRISH HARRIS MD [facility] 12-28-2021 10:48-0500 Heart rate 67 /min DR KRISH HARRIS MD [facility] 12-28-2021 10:48-0500 Respiratory rate 16 /min DR KRISH HARRIS MD [facility] 12-28-2021 10:48-0500 Systolic blood pressure 111 mm[Hg] DR KRISH HARRIS MD [facility] 12-28-2021 09:55-0500 Diastolic blood pressure 83 mm[Hg] DR KRISH HARRIS MD [facility] 12-28-2021 09:55-0500 Heart rate 66 /min DR KRISH HARRIS MD [facility] 12-28-2021 09:55-0500 Respiratory rate 14 /min DR KRISH HARRIS MD [facility] 12-28-2021 09:55-0500 Systolic blood pressure 150 mm[Hg] DR KRISH HARRIS MD [facility] 12-28-2021 09:50-0500 Diastolic blood pressure 93 mm[Hg] DR KRISH HARRIS MD [facility] 12-28-2021 09:50-0500 Heart rate 69 /min DR KRISH HARRIS MD [facility] 12-28-2021 09:50-0500 Respiratory rate 20 /min DR KRISH HARRIS MD [facility] 12-28-2021 09:50-0500 Systolic blood pressure 110 mm[Hg] DR KRISH HARRIS MD [facility] 12-28-2021 09:48-0500 Body temperature 96.44 [degF] DR KRISH HARRIS MD [facility] 12-28-2021 09:41-0500 Diastolic Blood Pressure NBP [address] KRISH HARRIS MD [facility] 12-28-2021 09:41-0500 Systolic Blood Pressure NBP [address] KRISH HARRIS MD [facility] 12-28-2021 07:59-0500 Body height 62.[address] KRISH HARRIS MD [facility] 12-28-2021 07:59-0500 Body temperature 97.7 [degF] DR KRISH HARRIS MD [facility] 12-28-2021 07:59-0500 Body weight 80.[address] KRISH HARRIS MD [facility] 12-28-2021 07:59-0500 Heart rate 74 /min DR KRISH HARRIS MD [facility] 12-10-2021 11:28-0500 Body height 162.6 cm PING PERRY MD [facility] 12-10-2021 11:28-0500 Body temperature 98.42 [degF] PING PERRY MD [facility] 12-10-2021 11:28-0500 Body weight 80.3 kg PING PERRY MD [facility] 12-10-2021 11:28-0500 Heart rate 86 /min PING PERRY MD [facility] 12-10-2021 11:28-0500 Respiratory rate 24 /min PING PERRY MD [facility] 11-12-2021 10:25-0500 Body temperature 98.6 [degF] YOAN FROMMELT DO [facility] 11-12-2021 10:25-0500 Diastolic blood pressure 86 mm[Hg] YOAN FROMMELT DO [facility] 11-12-2021 10:25-0500 Heart rate 77 /min YOAN FROMMELT DO [facility] 11-12-2021 10:25-0500 Respiratory rate 18 /min YOAN FROMMELT DO [facility] 11-12-2021 10:25-0500 Systolic blood pressure 126 mm[Hg] YOAN FROMMELT DO [facility] 11-09-2021 14:36-0500 Body temperature 98.06 [degF] MARTHA MACHUCA MD [facility] 11-09-2021 14:36-0500 Diastolic blood pressure 88 mm[Hg] MARTHA MACHUCA MD [facility] 11-09-2021 14:36-0500 Heart rate 76 /min MARTHA MACHUCA MD [facility] 11-09-2021 14:36-0500 Respiratory rate 16 /min MARTHA MACHUCA MD [facility] 11-09-2021 14:36-0500 Systolic blood pressure 145 mm[Hg] MARTHA MACHUCA MD [facility] 11-01-2021 08:16-0500 Diastolic blood pressure 82 mm[Hg] DR DAMIR CHAVARRIA MD [facility] 11-01-2021 08:16-0500 Heart rate 58 /min DR DAMIR CHAVARRIA MD [facility] 11-01-2021 08:16-0500 Mean blood pressure 112 mm[Hg] DR DAMIR CHAVARRIA MD [facility] 11-01-2021 08:16-0500 Respiratory rate 16 /min DR DAMIR CHAVARRIA MD [facility] 11-01-2021 08:16-0500 Systolic blood pressure 171 mm[Hg] DR DAMIR CHAVARRIA MD [facility] 11-01-2021 07:10-0500 Body temperature 98.24 [degF] DR DAMIR CHAVARRIA MD [facility] 11-01-2021 07:10-0500 Diastolic blood pressure 102 mm[Hg] DR DAMIR CHAVARRIA MD [facility] 11-01-2021 07:10-0500 Heart rate 75 /min DR DAMIR CHAVARRIA MD [facility] 11-01-2021 07:10-0500 Mean blood pressure 133 mm[Hg] DR DAMIR CHAVARRIA MD [facility] 11-01-2021 07:10-0500 Respiratory rate 20 /min DR DAMIR CHAVARRIA MD [facility] 11-01-2021 07:10-0500 Systolic blood pressure 195 mm[Hg] DR DAMIR CHAVARRIA MD [facility] 10-30-2021 19:07-0500 Body height 162.[address] MARIA DEL ROSARIO HAILE MD [facility] 10-30-2021 19:07-0500 Body temperature 98.24 [degF] DR MARIA DEL ROSARIO HAILE MD [facility] 10-30-2021 19:07-0500 Body weight 88.[address] MARIA DEL ROSARIO HAILE MD [facility] 10-30-2021 19:07-0500 Diastolic blood pressure 88 mm[Hg] DR MARIA DEL ROSARIO HAILE MD [facility] 10-30-2021 19:07-0500 Heart rate 73 /min DR MARIA DEL ROSARIO HAILE MD [facility] 10-30-2021 19:07-0500 Respiratory rate 22 /min DR MARIA DEL ROSARIO HAILE MD [facility] 10-30-2021 19:07-0500 Systolic blood pressure 149 mm[Hg] DR MARIA DEL ROSARIO HAILE MD [facility] 10-05-2021 09:45-0500 Body height [address] ROHINI JENKINS MD [facility] 10-05-2021 09:45-0500 Body weight 86.[address] ROHINI JENKINS MD [facility] 10-05-2021 09:45-0500 Body weight 34.73 kg/m2 DR ROHINI JENKINS MD [facility] 10-05-2021 09:45-0500 diastolic 74 mm[Hg] DR ROHINI JENKINS MD [facility] 10-05-2021 09:45-0500 Heart rate 80 /min DR ROHINI JENKINS MD [facility] 10-05-2021 09:45-0500 Respiratory rate 18 /min DR ROHINI JENKINS MD [facility] 10-05-2021 09:45-0500 systolic 110 mm[Hg] DR ROHINI JENKINS MD [facility] Encounters Encounter Date Encounter Type Care Provider Facility Start: 06-04-2025 End: 06-04-2025 ambulatory Nay FLETCHER Facility:[facility] Start: 03-06-2025 End: 03-06-2025 Telephone encounter Shaun Eastman MD Work Phone: [facility] Comment on above: Other (Prior authori zation) Start: 03-06-2025 End: 03-06-2025 ambulatory [facility] Start: 03-06-2025 End: 03-06-2025 Patient encounter procedure Shaun Eastman MD Work Phone: [facility] Comment on above: Nephrolithiasis (Jayashree chad Dx) Start: 02-25-2025 End: 02-25-[address] Nay Greenwood MD [facility] Work Phone: Start: 02-25-2025 End: 02-25-[address] Nay Greenwood MD -[facility] Work Phone: Start: 02-25-2025 End: 02-25-2025 ambulatory Nay FLETCHER Facility:[facility] Start: 02-22-2025 End: 02-22-2025 Telephone encounter Sarath Hi CNP Work Phone: [facility] Start: 02-19-2025 End: 02-21-2025 Telephone [facility] Start: 02-19-2025 End: 02-19-2025 ambulatory [facility] Start: 02-19-2025 End: 02-19-2025 Subsequent hospital visit by physician Sarath Ramos MD Work Phone: [facility] Comment on above: Right kidney stone; Renal calculus Start: 02-18-2025 End: 02-18-2025 Orders Only Kiara Wayne PA-C [facility] Comment on above: Urinary tract infect ion without hematuria, site unspecified (Primary Dx) Start: 02-15-2025 End: 02-15-2025 ambulatory [facility] Start: 02-15-2025 End: 02-15-2025 Encounter for other preprocedural examination [facility] Start: 02-07-2025 End: 02-13-2025 Telephone encounter Kiara Wayne PA-C [facility] Start: 02-07-2025 End: 02-07-2025 Office outpatient visit 25 minutes Kiara Wayne PA-C [facility] Comment on above: Right kidney stone ( Primary Dx) Start: 02-07-2025 End: 02-07-2025 ambulatory Kiara Wayne PA-C Work Phone[facility] Comment on above: Right kidney stone ( Primary Dx) Start: 02-05-2025 End: 02-05-2025 Telephone encounter Chad Hi CNP Work Phone: [facility] Comment on above: Results (Ct Scan) Start: 02-04-2025 End: 02-04-[address] Nay Greenwood MD [facility] Work Phone: Start: 02-04-2025 End: 02-04-[address] [facility] Work Phone: Start: 02-04-[address] [facility] Green[facility] Work Phone: Start: 02-04-2025 End: 02-04-2025 ambulatory Nay Greenwood Facility:[facility] Start: 01-29-2025 End: 01-29-2025 Subsequent hospital visit by physician Sarath Ramos MD Work Phone: [facility] Comment on above: Right kidney stone; UPJ obstruction, acquired Start: 01-29-2025 End: 01-29-2025 ambulatory [facility] Start: 01-18-2025 End: 01-24-2025 Telephone encounter Sarath Ramos MD Work Phone: [facility] Central Scheduling Comment on above: Other (Authorization ) Start: 12-28-2024 End: 12-28-2024 Emergency department patient visit Dr. Masood Holden DO -Emergency Department Work Phone: Start: 12-14-2024 ambulatory Nay Crisostomoa OLS Facili ty:[facility] Start: 12-14-[address] Nay Greenwood [facility] Work Phone: Start: 12-10-2024 End: 12-10-[address] [facility]ay Greenwood [facility] Work Phone: Start: 12-10-2024 End: 12-10-2024 ambulatory Nay FLETCHER Facility:[facility] Start: 12-03-2024 ambulatory Nay Greenwood OLS Facili ty:[facility] Start: 12-03-[address] Nay Greenwood [facility] Work Phone: Start: 10-17-2024 End: 10-17-2024 ambulatory Nay Greenwood JUSTINE Facility:[facility] Start: 03-23-2024 End: 03-28-2024 ambulatory STACEY HALKO DO Facility:B Start: 02-14-2024 End: 02-14-2024 Office outpatient visit 25 minutes Sarath Ramos MD Work Phone: [facility] Urology Comment on above: Right kidney stone ( Primary Dx); UPJ obstruction, acquired Start: 02-10-2024 End: 02-11-2024 ambulatory STACEY HALKO DO Facility:B Start: 02-10-2024 End: 02-10-2024 Patient encounter procedure STACEY HALKO DO [facility] Start: 02-06-2024 End: 02-06-2024 Subsequent hospital visit by physician Sarath Ramos MD Work Phone: [facility] Nuclear Medicine Comment on above: UPJ obstruction, acq uired Start: 01-13-2024 End: 01-18-2024 ambulatory STACEY HALKO DO Facility:B Start: 01-13-2024 End: 01-17-2024 Outreach Lab STACEY HALKO DO [facility] Start: 01-10-2024 End: 01-15-2024 ambulatory STACEY HALKO DO Facility:B Start: 01-10-2024 End: 01-14-2024 Outreach Lab STACEY HALKO DO [facility] Start: 01-06-2024 End: 01-06-2024 Subsequent hospital visit by physician Sarath Ramos MD Work Phone: [facility] MA[facility] OR Start: 12-23-2023 End: 12-28-2023 ambulatory STACEY HALKO DO Facility:B Start: 12-23-2023 End: 12-27-2023 Outreach Lab STACEY HALKO DO [facility] Start: 12-06-2023 End: 12-06-2023 Subsequent hospital visit by physician Sarath Ramos MD Work Phone: [facility] MA[facility] OR Comment on above: Right kidney stone; Hydronephrosis, right Start: 11-22-2023 End: 11-22-2023 Emergency department patient visit DR SWETHA KRAMER DO Facility:B Start: 11-22-2023 End: 11-22-2023 Emergency department patient visit DR SWETHA KRAMER DO [facility] Start: 11-20-2023 End: 11-20-2023 Emergency department patient visit DR MARIA DEL ROSARIO HAILE MD Facility:B Start: 11-20-2023 End: 11-20-2023 Emergency department patient visit DR MARIA DEL ROSARIO HAILE MD [facility] Start: 11-15-2023 End: 11-15-2023 Emergency department patient visit YOAN KELLEY DO Facility:B Start: 11-15-2023 End: 11-15-2023 [facility] Start: 11-14-2023 ambulatory Eugenio Rodriguez RESERVATIONS CLERK - WAREHOUSE WORKER Work Phone: [facility] Comment on above: Right kidney stone ( Primary Dx); Hydronephrosis, right Start: 11-14-2023 Telephone encounter Eugenio Barrett RESERVATIONS CLERK - WAREHOUSE WORKER Work Phone: [facility] Comment on above: Results Start: 11-12-2023 End: 11-12-2023 Emergency department patient visit YOAN KELLEY DO Facility:B Start: 11-11-2023 End: 11-12-2023 Emergency department patient visit YOAN GARZON [facility] Start: 11-11-2023 ambulatory Kaylan Machado RN [facility] Start: 11-11-2023 Patient encounter procedure Kaylan Machado RN [facility] Start: 11-10-2023 End: 11-10-2023 Office outpatient visit 25 minutes Sarath Ramos MD Work Phone: [facility] Comment on above: Right kidney stone ( Primary Dx); Burning with urination Start: 11-08-2023 End: 11-09-2023 ambulatory STACEY NEWBERRY DO Facility:B Start: 11-08-2023 End: 11-08-2023 Patient encounter procedure STACEY NEWBERRY DO [facility] Start: 11-07-2023 End: 11-07-2023 Emergency department patient visit DR SWETHA KRAMER DO Facility:B Start: 11-07-2023 End: 11-07-2023 Emergency department patient visit DR SWETHA KRAMER DO [facility] Start: 11-03-2023 End: 11-03-2023 Emergency department patient visit DR DAMIR CHAVARRIA MD Facility:B Start: 11-03-2023 Telephone encounter Sarath lawrence MD Work Phone: [facility] Start: 11-03-2023 End: 11-03-2023 Emergency department patient visit DR DAMIR CHAVARRIA MD [facility] Start: 10-25-2023 Telephone encounter Eugenio Barrett RESERVATIONS CLERK - WAREHOUSE WORKER Work Phone: [facility] Comment on above: Cancelled Appointmen t (10/25/23 Pt called at 07:17 AM pt not feeling well pt cx appt would like a call back to r/s appt [facility]) Start: 10-24-2023 End: 10-29-2023 ambulatory [facility] RESERVATIONS CLERK-WAREHOUSE WORKER Facility:B Start: 10-24-2023 End: 10-28-2023 Outreach Lab [facility] RESERVATIONS CLERK-WAREHOUSE WORKER [facility] Start: 10-07-2023 End: 10-07-2023 Subsequent hospital visit by physician Elie Umana MD Work Phone: [facility] Radiology Comment on above: Renal calculus, left Start: 06-07-2023 End: 06-12-2023 ambulatory STACEY NEWBERRY DO Facility:B Start: 02-15-2023 End: 02-15-2023 Patient encounter procedure STACEY BROCKJEANNINE NAGY [facility] Start: 01-07-2023 End: 02-10-2023 Admission to same day surgery center DR REBEKAH NICHOLSON MD [facility] Start: 12-22-2022 End: 12-30-2022 Evaluation and management of inpatient Dr. Stacey Newberry Work Phone: [facility] Start: 12-15-[address] Arelis Newberry Work Phone: [facility] Start: 12-15-2022 End: 12-15-2022 Admission to same day surgery center Dr. Stacey Newberry Work Phone: [facility] Start: 12-15-2022 End: 12-15-[address] Stacey Newberry Work Phone: [facility] Start: 09-24-2022 End: 09-25-2022 [facility] Start: 09-17-2022 ambulatory Stacey Brockjeannine [facility] Start: 09-17-2022 Encounter for other preprocedural examination Sarath Ramos [facility] Start: 09-17-2022 End: 09-17-2022 Subsequent hospital visit by physician Sarath Ramos MD Work Phone: [facility] Pre-Admit Testing Comment on above: Acute cystitis with hematuria Start: 08-31-2022 End: 09-04-2022 Outreach Lab STACEY NEWBERRY DO [facility] Start: 08-11-2022 End: 08-15-2022 Outreach Lab TAMRA DWYER RESERVATIONS CLERK-WAREHOUSE WORKER [facility] Start: 07-14-2022 End: 07-14-2022 Subsequent hospital visit by physician Sarath Ramos MD Work Phone: [facility] Radiology Comment on above: Renal calculi Start: 07-06-2022 End: 07-06-2022 Patient encounter procedure STACEY NEWBERRY [facility] Start: 05-17-2022 End: 05-17-[address] KRISH HARRIS MD [facility] Start: 03-15-2022 End: 03-15-2022 Patient encounter procedure Aleida Mitchell RESERVATIONS CLERK.WAREHOUSE WORKER Work Phone: [facility] Comment on above: Allergic reaction, i nitial encounter (Primary Dx) Start: 03-12-2022 End: 03-14-2022 ambulatory [facility] Start: 03-12-2022 End: 03-14-2022 Subsequent hospital visit by physician Sarath Ramos MD Work Phone: [facility] MED SURG Comment on above: Renal calculus, righ t (Primary Dx) Start: 03-05-2022 ambulatory PCP [facility] Start: 02-18-2022 End: 02-22-2022 Outreach Lab MAX MONTANEZ RESERVATIONS CLERK-WAREHOUSE WORKER [facility] Start: 01-28-2022 End: 02-01-2022 Outreach Lab KIAH CHANEY RESERVATIONS CLERK-WAREHOUSE WORKER [facility] Start: 01-20-2022 End: 01-20-2022 Patient encounter procedure STACEY NEWBERRY DO [facility] Start: 12-28-2021 End: 12-28-[address] KRISH HARRIS MD [facility] Start: 12-10-2021 End: 12-10-2021 Emergency department patient visit PING PERRY MD [facility] Start: 11-19-2021 End: 11-19-2021 Emergency department patient visit DR SWETHA KRAMER DO [facility] Start: 11-19-2021 End: 11-19-2021 Emergency department patient visit PING PERRY MD [facility] Start: 11-18-2021 End: 11-22-2021 Outreach Lab AMBROCIO RUSSO RESERVATIONS CLERK-WAREHOUSE WORKER [facility] Start: 11-12-2021 End: 11-12-2021 Emergency department patient visit YOAN KELLEY DO [facility] Start: 11-09-2021 End: 11-09-2021 Emergency department patient visit MARTHA MACHUCA MD [facility] Start: 11-04-2021 End: 11-08-2021 Outreach Lab TRINITY COKER RESERVATIONS CLERK-WAREHOUSE WORKER [facility] Start: 11-03-2021 End: 11-03-2021 Emergency department patient visit AUDREY VERAS MD [facility] Start: 11-01-2021 End: 11-01-[address] DAMIR CHAVARRIA MD [facility] Start: 11-01-2021 End: 11-01-2021 Emergency department patient visit DR DAMIR CHAVARRIA MD [facility] Start: 10-30-2021 End: 10-30-2021 Emergency department patient visit DR MARIA DEL ROSARIO HAILE MD [facility] Start: 10-05-2021 End: 10-05-[address] ROHINI JENKINS MD [facility] Start: 10-05-2021 End: 10-05-[address] ROHINI JENKINS MD [facility] Start: 09-16-2021 End: 09-16-2021 Patient encounter procedure STACEY NEWBERRY DO [facility] Procedures Date Procedure Procedure Detail [...] et rgnt auto w/o microscopy Toñakerry Escamilla RESERVATIONS CLERK - WAREHOUSE WORKER Work Phone: Start: 09-17-2022 BASIC METABOLIC PANE L W/ REFLEX TO MG FOR LOW K Toña W Ammonika RESERVATIONS CLERK - WAREHOUSE WORKER Work Phone: Start: 09-17-2022 Ecg routine ecg w/le ast 12 lds w/i&r Toñaaidee Escamilla RESERVATIONS CLERK - WAREHOUSE WORKER Work Phone: Start: 03-14-2022 Basic metabolic pane [...] pane l calcium total Annemarie Feroz Olguin RESERVATIONS CLERK - WAREHOUSE WORKER Work Phone: Start: 12-09-2014 Endoscopic biopsy LESLY MALHOTRA BROCKJEANNINE DO Hysterectomy STACEY BROCKJEANNINE Jeff O Left cataract extraction LONNIE RLBECKY FROMBuyapowaT DO Lithotripsy YOAN FROMHILARIO Bailey DO 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 Trevor Newberry Work Phone: Plan of Treatment Date Care Activity Detail Author Start: 03-18-2026 End: 03-18-2026 Patient encounter procedure 03/18/2026 2:30 PM EDT [facility] [address] [place] [address] Shaun Eastman MD [address] [place], [place] [id number] [facility] [place] Start: 02-26-2026 End: 02-26-2026 Patient encounter procedure 02/26/2026 3:[address] [facility] [address] [place] [address] Shaun Eastman MD [address] [place] [address] [id number] [facility] [address] Start: 02-26-2026 End: 03-06-2026 CT Abdomen and Pelvis WO contrast CT abdomen pelvis wo IV contrast Imaging Routine Nephrolithiasis Expected: 02/26/2026, Expires: 03/06/2026 [facility] Work Phone: Comment on above: Expected: 02/26/2026 , Expires: 03/06/2026 Start: 07-29-2025 Influenza vaccination Influenz a Vaccine (Season Ended) [facility] Start: 03-06-2025 End: 03-06-2025 Patient encounter procedure 03/06/2025 9:20 AM EDT Procedure Visit [address] [phone] Shaun Eastman MD [address] [place] [id number] [facility] Start: 02-19-2025 End: 02-19-2025 Admission to same day surgery center 02/19/2025 1:30 PM EDT - 02/19/2025 3:00 PM EDT Surgery [facility] OR [address] [place] [phone] Sarath Ramos MD [address] [place] [id number] CYSTOSCOPY, WITH RETROGRADE PYELOGRAM [78032 (CPT )] [facility] OR Comment on above: CYSTOSCOPY, WITH RET ROGRADE PYELOGRAM [57639 (CPT )] Start: 02-19-2025 End: 02-19-2025 Anesthesia consultation 02/19/2025 1:30 PM EDT Anesthesia Event [facility] MA[facility] OR [address] [place] [phone] Sana Crowder, RESERVATIONS CLERK - WAREHOUSE WORKER [address] [place] [address] [facility] MA[facility] OR Start: 02-19-2025 End: 02-19-2025 Cysto bladder w/ureteral catheterization CYSTOSCOPY, WITH RETROGRADE PYELOGRAM Renal calculus 02/19/2025 1:30 PM EDT [facility] Operating Room Start: 02-19-2025 End: 02-19-2025 Cysto w/insert ureteral stent CYSTOSCOPY, WITH URETERAL STENT INSERTION Renal calculus 02/19/2025 1:30 PM EDT [facility] Operating Room Start: 02-19-2025 End: 02-19-2025 Cysto w/ureteroscopy w/lithotripsy CYSTOURETEROSCOPY, WITH LITHOTRIPSY Renal calculus 02/19/2025 1:30 PM EDT [facility] Operating Room Start: 02-19-2025 Subsequent hospital visit by physician [facility] MAIN OR Start: 02-15-2025 End: 02-15-2025 Admission to establishment 02/15/2025 9:30 AM EDT Pre-Admission Testing [facility] Pre-Admit Testing [address] [facility] [place] [address] Sarath Ramos MD [address] [place] [address] [facility] Pre-Admit Testing Start: 02-13-2025 End: 02-13-2025 CT Abdomen WO contrast CT abdomen pelvis wo IV contrast Imaging Routine Right kidney stone UPJ obstruction, acquired Expected: 02/13/2025, Expires: 02/13/2025 [facility] Work Phone: Comment on above: Expected: 02/13/2025 , Expires: 02/13/2025 Start: 02-07-2025 End: 05-10-2025 Bacteria identified in Urine by Culture Urine culture Microbiology Routine Right kidney stone Expected: 02/07/2025 (Approximate), Expires: 05/10/2025 [facility] Work Phone: Comment on above: Expected: 02/07/2025 (Approximate), Expires: 05/10/2025 Start: 02-07-2025 End: 02-07-2025 Patient encounter procedure [facility] Start: 01-29-2025 Subsequent hospital visit by physician 01/29/2025 4:15 PM EST Hospital Encounter [facility] [address] [place] [phone] Sarath Ramos MD [address] [place] [address] [facility] [address] Start: 01-28-2025 End: 01-28-2025 Patient encounter procedure 01/28/2025 11:[address] [facility] [address] [place] [phone] Sarath Ramos MD [address] [place] [address] [facility] [address] Start: 12-28-2024 [facility] Start: 11-28-2024 Medicare Advantage A nnual Wellness Visit Medicare Advantage Annual Wellness Visit [facility] Start: 07-29-2024 COVID-19 Vaccine ( season) COVID-19 Vaccine ( season) [facility] Start: 07-29-2024 Influenza vaccination Influenza Vacc ine (#1) [facility] Start: 02-21-2024 End: 02-21-2024 Patient encounter procedure 02/21/2024 11:20 AM EDT Office Visit [facility] [address] [place] [phone] Eugenio Barrett, RESERVATIONS CLERK - WAREHOUSE WORKER [address] [place] [address] [facility] Start: 02-14-2024 End: 02-14-2024 Patient encounter procedure 02/14/2024 10:40 AM EDT Office Visit [facility] [address] [place] [phone] Sarath Ramos MD [address] [place] [address] [facility] Start: 01-19-2024 End: 01-19-2024 Patient encounter procedure 01/19/2024 9:30 AM EST Office Visit [facility] [address] [place] [phone] [address] MD [address] [place] [address] [facility] Start: 01-06-2024 End: 01-06-2024 Admission to same day surgery center 01/06/2024 7:30 AM EST - 01/06/2024 8:30 AM EST Surgery [facility] OR [address] [facility] [place] [phone] [address] [place] [address] CYSTOSCOPY AND PYELOGRAM, RIGHT URETEROSCOPY HOLMIUM LASER LITHOTRIPSY, RIGHT URETERAL STENT REMOVAL [69699 (CPT )] [facility] MAIN OR Comment on above: CYSTOSCOPY AND PYELO GRAM, RIGHT URETEROSCOPY HOLMIUM LASER LITHOTRIPSY, RIGHT URETERAL STENT REMOVAL [44991 (CPT )] Start: 01-06-2024 End: 01-06-2024 Cysto bladder w/ureteral catheterization CYSTOSCOPY AND PYELOGRAM Calculus of kidney 01/06/2024 7:30 AM EST [facility] Operating Room Start: 01-06-2024 End: 01-06-2024 Cysto w/insert ureteral stent CYSTOSCOPY WITH INSERTION URETERAL STENT Calculus of kidney 01/06/2024 7:30 AM EST [facility] Operating Room Start: 01-06-2024 End: 01-06-2024 Cysto w/ureteroscopy w/lithotripsy CYSTOSCOPY WITH URETEROSCOPY AND OR PYELOSCOPY WITH REMOVAL OR MANIPULATION CALCULUS WITH LITHOTRIPSY Calculus of kidney 01/06/2024 7:30 AM EST [facility] Operating Room Start: 01-06-2024 Subsequent hospital visit by physician 01/06/2024 7:30 AM EST Hospital Encounter [facility] [address] [facility] [place] [phone] MD [address] [place] [address] [facility] OR Start: 11-28-2023 Medicare Advantage A nnual Wellness Visit Medicare Advantage Annual Wellness Visit [facility] Start: 11-10-2023 End: 11-10-2023 Patient encounter procedure 11/10/2023 1:40 PM EST Office Visit [facility] [address] [place] [phone] Sarath Ramos MD [address] [place] [address] [facility] Start: 10-25-2023 End: 10-25-2023 Patient encounter procedure 10/25/2023 11:20 AM EST Office Visit [facility] [address] [place] [phone] Eugenio Barrett, RESERVATIONS CLERK - WAREHOUSE WORKER [address] [place] [address] [facility] Start: 07-29-2023 COVID-19 Vaccine ( season) COVID-19 Vaccine ( season) [facility] Start: 07-29-2023 Influenza vaccination Influenza Vacc ine (#1) [facility] Start: 03-14-2023 Creatinine measurement Creatinine mo nitoring [facility] Start: 03-14-2023 Potassium monitoring Potassium monit oring [facility] Start: 02-10-2023 Blood chemistry [facility] Start: 02-03-2023 Blood chemistry [facility] Start: 01-27-2023 Blood chemistry [facility] Start: 01-20-2023 Blood chemistry [facility] Start: 01-13-2023 Blood chemistry [facility] Start: 2023 RSV Immunization for Adults (1 - 1-dose 75+ series) RSV Immunization for Adults (1 - 1-dose 75+ series) [facility] Start: 01-06-2023 Blood chemistry [facility] Start: 12-29-2022 Developing a treatme nt plan [facility] Start: 12-27-2022 [facility] Start: 12-23-2022 Speech therapy management [facility] Start: 12-23-2022 Referral to service [facility] Start: 12-23-2022 Development of care plan [facility] Start: 12-23-2022 Patient discharge [facility] Start: 12-23-2022 Developing a treatme nt plan [facility] Start: 12-23-2022 Speech therapy assessment [facility] Start: 12-23-2022 Development of care plan [facility] Start: 12-23-2022 Patient referral to dietitian [facility] Start: 12-22-2022 Wound care [facility] Start: 12-22-2022 Provision of activit y privileges [facility] Start: 12-22-2022 Admission procedure [facility] Start: 12-22-2022 Measuring intake and output [facility] Start: 12-22-2022 Patient referral to dietitian [facility] Start: 12-22-2022 Referral to occupati onal therapist [facility] Start: 12-22-2022 Referral to service [facility] Start: 12-22-2022 Vital signs measurements [facility] Start: 12-22-2022 End: 12-22-2022 [facility] Start: 12-22-20[address] [facility] Start: 09-24-2022 End: 09-24-2022 Patient encounter procedure [facility] Start: 07-29-2022 Influenza vaccination [facility] Start: 07-27-2022 End: 07-27-2022 Patient encounter procedure 07/27/2022 Office Visit Urology Sarath Ramos MD [address] [place] [address] [facility] [place] Start: 06-28-2022 Influenza vaccination Flu vaccine (# 1) [facility] Start: 01-25-2022 Annual Wellness Visi t (AWV) Annual Wellness Visit (AWV) [facility] Start: 11-28-2021 ADVANCE DIRECTIVE DISCUSSION ADVANCE DIRECTIVE DISCUSSION [facility] Start: 2013 BONE DENSITY BONE DENSITY [facility] Start: 2013 Pneumococcal 65+ yea rs Vaccine (1 - PCV) Pneumococcal 65+ years Vaccine (1 - PCV) [facility] Start: 2013 Pneumococcal Vaccine : 65+ Years (1 - PCV) Pneumococcal Vaccine: 65+ Years (1 - PCV) [facility] Start: 2013 Pneumococcal Vaccine : 65+ Years (1 of 1 - PCV) Pneumococcal Vaccine: 65+ Years (1 of 1 - PCV) [facility] Start: 2013 PNEUMOVAX AGE 65 AND OVER WITH 5YR LOOKBACK (#1) PNEUMOVAX AGE 65 AND OVER WITH 5YR LOOKBACK (#1) [facility] Start: 2008 RSV Immunization age d 60 or older (1 - 1-dose 60+ series) RSV Immunization aged 60 or older (1 - 1-dose 60+ series) [facility] Start: 2003 Screening for osteoporosis DEXA (modify frequency per FRAX score) [facility] [facility] Start: 1998 Pneumococcal Vaccine : 50+ Years (1 of 1 - PCV) Pneumococcal Vaccine: 50+ Years (1 of 1 - PCV) [facility] Start: 1998 Screening for malign ant neoplasm of breast Breast cancer screen [facility] Start: 1998 Shingles Vaccine (1 of 2) Shingles V accine (1 of 2) [facility] Start: 1998 SHINGRIX VACCINE (1 of 2) SHINGRIX V ACCINE (1 of 2) [facility] Start: 1998 Zoster Vaccines (1 of 2) Zoster Vacc germaine (1 of 2) [facility] Start: 1993 COLOGUARD (FIT-DNA) COLOGUARD (FIT-D NA) [facility] Start: 1993 Colonoscopy COLONOSCOPY [facility] Start: 1993 COLORECTAL CANCER SCREENING COLORECTAL CANCER SCREENING [facility] Start: [address] COLONOGRAPHY [facility] Start: 1993 DIABETES SCREEN DIABETES SCREEN [facility] Start: 1993 FECAL OCCULT BLOOD FECAL OCCULT BLOO D [facility] Start: 1993 LIPID SCREEN LIPID SCREEN [facility] Start: 1993 Screening for malign ant neoplasm of colon [facility] Start: 1993 SIGMOIDOSCOPY SIGMOIDOSCOPY [facility] Start: 1988 Lipid panel [facility] Start: 1988 Mammography MAMMOGRAM [facility] Start: 1967 DTaP/Tdap/Td vaccine (1 - Tdap) DTaP/Tdap/Td vaccine (1 - Tdap) [facility] Start: 1967 DTaP/Tdap/Td Vaccine s (1 - Tdap) DTaP/Tdap/Td Vaccines (1 - Tdap) [facility] Start: 1967 Urine microalbumin profile DTAP,TDAP,TD (1 - Tdap) [facility] Start: 1966 Diabetes mellitus screening Diabetes Screening [facility] Start: 1966 HEPATITIS C SCREENING HEPATITIS C SC REENING [facility] Start: 1966 Hepatitis C screening [facility] Start: 1960 Adult depression screening assessment DEPRESSION SCREENING [facility] Start: 1960 Depression [facility] Start: [facility] Depression Screen Depression Screen [facility] Start: 1953 COVID-19 Vaccine (1) COVID-19 Vaccin e (1) [facility] Start: 1948 COVID-19 Vaccine (#1) COVID-19 Vacci ne (#1) [facility] Start: 1948 Annual Wellness Visi t (AWV) Annual Wellness Visit (AWV) [facility] Start: 1948 Hepatitis C screening Hepatitis C sc reen [facility] Start: 1948 Lipid panel Lipid Panel [facility] Start: 1948 Medicare Advantage A nnual Wellness Visit (AWV) Medicare Advantage Annual Wellness Visit (AWV) [facility] Start: 1948 Screening for malign ant neoplasm of colon [facility] Start: 1948 Screening for osteoporosis Bone Density Scan [facility] Start: 1948 Thyroid stimulating hormone measurement TSH Level [facility] Anion gap measurement [facility] Anion gap measurement [facility] Anion gap measurement [facility] Anion gap measurement [facility] Anion gap measurement [facility] Anion gap measurement [facility] End: 09-17-2022 Bacteria identified in Urine by Culture [facility] Work Phone: Comment on above: One Time for 1 Occur rences starting 09/17/2022 until 09/17/2022 Bacteria identified in Urine by Culture Urine culture Microbiology Routine Burning with urination Ordered: 11/10/2023 [employer] Work Phone: Comment on above: Ordered: 11/10/2023 End: 02-19-2025 Bacteria identified in Urine by Culture [employer] Work Phone: Comment on above: Release Upon Orderin g for 1 Occurrences starting 02/19/2025 Once for 1 Occurrenc es starting 02/19/2025 until 02/19/2025 BUN/Creatinine ratio [facility] BUN/Creatinine ratio [facility] BUN/Creatinine ratio [facility] BUN/Creatinine ratio [facility] BUN/Creatinine ratio [facility] BUN/Creatinine ratio [facility] Calcium [Mass/volume ] in Serum or Plasma [facility] Calcium [Mass/volume ] in Serum or Plasma [facility] Calcium [Mass/volume ] in Serum or Plasma [facility] Calcium [Mass/volume ] in Serum or Plasma [facility] Calcium [Mass/volume ] in Serum or Plasma [facility] Calcium [Mass/volume ] in Serum or Plasma [facility] Carbon dioxide, tota l [Moles/volume] in Serum or Plasma [facility] Carbon dioxide, tota l [Moles/volume] in Serum or Plasma [facility] Carbon dioxide, tota l [Moles/volume] in Serum or Plasma [facility] Carbon dioxide, tota l [Moles/volume] in Serum or Plasma [facility] Carbon dioxide, tota l [Moles/volume] in Serum or Plasma [facility] Carbon dioxide, tota l [Moles/volume] in Serum or Plasma [facility] Chloride [Moles/volu me] in Serum or Plasma [facility] Chloride [Moles/volu me] in Serum or Plasma [facility] Chloride [Moles/volu me] in Serum or Plasma [facility] Chloride [Moles/volu me] in Serum or Plasma [facility] Chloride [Moles/volu me] in Serum or Plasma [facility] Chloride [Moles/volu me] in Serum or Plasma [facility] Creatinine [Moles/vo lume] in Serum or Plasma [facility] Creatinine [Moles/vo lume] in Serum or Plasma [facility] Creatinine [Moles/vo lume] in Serum or Plasma [facility] Creatinine [Moles/vo lume] in Serum or Plasma [facility] Creatinine [Moles/vo lume] in Serum or Plasma [facility] Creatinine [Moles/vo lume] in Serum or Plasma [facility] Cysto bladder w/uret eral catheterization CYSTOSCOPY, WITH RETROGRADE PYELOGRAM Renal calculus [facility] Cysto w/insert urete ral stent CYSTOSCOPY, WITH URETERAL STENT INSERTION Renal calculus [facility] Operating Room Cysto w/ureteroscopy w/lithotripsy CYSTOURETEROSCOPY, WITH LITHOTRIPSY Renal calculus [facility] Operating Room EKG 12 Lead EKG 12 Lead ECG Routine 09/17/2022 9:57 AM EDT [facility] Work Phone: End: 03-12-2022 FL Greater Than 1 Hour [facility] Work Phone: Comment on above: Once for 1 Occurrenc es starting 03/12/2022 until 03/12/2022 Glucose [Mass/volume ] in Serum or Plasma [facility] Glucose [Mass/volume ] in Serum or Plasma [facility] Glucose [Mass/volume ] in Serum or Plasma [facility] Glucose [Mass/volume ] in Serum or Plasma [facility] Glucose [Mass/volume ] in Serum or Plasma [facility] Glucose [Mass/volume ] in Serum or Plasma [facility] Hematocrit [Volume Fraction] of Blood [facility] Hematocrit [Volume Fraction] of Blood [facility] Hematocrit [Volume Fraction] of Blood [facility] Hematocrit [Volume Fraction] of Blood [facility] Hematocrit [Volume Fraction] of Blood [facility] Hematocrit [Volume Fraction] of Blood [facility] Hemoglobin [Mass/vol ume] in Blood [facility] Hemoglobin [Mass/vol ume] in Blood [facility] Hemoglobin [Mass/vol ume] in Blood [facility] Hemoglobin [Mass/vol ume] in Blood [facility] Hemoglobin [Mass/vol ume] in Blood [facility] Hemoglobin [Mass/vol ume] in Blood [facility] Leukocytes [#/volume ] in Blood [facility] Leukocytes [#/volume ] in Blood [facility] Leukocytes [#/volume ] in Blood [facility] Leukocytes [#/volume ] in Blood [facility] Leukocytes [#/volume ] in Blood [facility] Leukocytes [#/volume ] in Blood [facility] Mean corpuscular hemoglobin concentration determination [facility] Mean corpuscular hemoglobin concentration determination [facility] Mean corpuscular hemoglobin concentration determination [facility] Mean corpuscular hemoglobin concentration determination [facility] Mean corpuscular hemoglobin concentration determination [facility] Mean corpuscular hemoglobin concentration determination [facility] Mean corpuscular hemoglobin determination [facility] Mean corpuscular hemoglobin determination [facility] Mean corpuscular hemoglobin determination [facility] Mean corpuscular hemoglobin determination [facility] Mean corpuscular hemoglobin determination [facility] Mean corpuscular hemoglobin determination [facility] Measurement of renal function [facility] Measurement of renal function [facility] Measurement of renal function [facility] Measurement of renal function [facility] Measurement of renal function [facility] Measurement of renal function [facility] Neutrophil count [facility] Neutrophil count [facility] Neutrophil count [facility] Neutrophil count [facility] Neutrophil count [facility] Neutrophil count [facility] Neutrophil percent differential count [facility] Neutrophil percent differential count [facility] Neutrophil percent differential count [facility] Neutrophil percent differential count [facility] Neutrophil percent differential count [facility] Neutrophil percent differential count [facility] OUTSIDE PROCEDURE SCAN OUTSIDE P ROCEDURE SCAN Procedures Ordered: 10/07/2023 [facility] [employer] [facility] Comment on above: Ordered: 10/07/2023 Oxygen therapy [[facility] Data Set] Initiate Oxygen Therapy Protocol Respiratory Care Routine As Needed until discontinued starting 03/12/2022 [facility] Work Phone: Comment on above: As Needed until disc ontinued starting 03/12/2022 Patient Education ED Head Injury (Adult) [facility] Work Phone: Patient referral [facility] Work Phone: Platelets [#/volume] in Blood [facility] Platelets [#/volume] in Blood [facility] Platelets [#/volume] in Blood [facility] Platelets [#/volume] in Blood [facility] Platelets [#/volume] in Blood [facility] Platelets [#/volume] in Blood [facility] Potassium [Moles/vol ume] in Serum or Plasma [facility] Potassium [Moles/vol ume] in Serum or Plasma [facility] Potassium [Moles/vol ume] in Serum or Plasma [facility] Potassium [Moles/vol ume] in Serum or Plasma [facility] Potassium [Moles/vol ume] in Serum or Plasma [facility] Potassium [Moles/vol ume] in Serum or Plasma [facility] Red blood cell count [facility] Red blood cell count [facility] Red blood cell count [facility] Red blood cell count [facility] Red blood cell count [facility] Red blood cell count [facility] Red cell distributio n width determination [facility] Red cell distributio n width determination [facility] Red cell distributio n width determination [facility] Red cell distributio n width determination [facility] Red cell distributio n width determination [facility] Red cell distributio n width determination [facility] Sodium [Moles/volume ] in Serum or Plasma [facility] Sodium [Moles/volume ] in Serum or Plasma [facility] Sodium [Moles/volume ] in Serum or Plasma [facility] Sodium [Moles/volume ] in Serum or Plasma [facility] Sodium [Moles/volume ] in Serum or Plasma [facility] Sodium [Moles/volume ] in Serum or Plasma [facility] Urea nitrogen [Mass/volume] in Serum or Plasma [facility] Urea nitrogen [Mass/volume] in Serum or Plasma [facility] Urea nitrogen [Mass/volume] in Serum or Plasma [facility] Urea nitrogen [Mass/volume] in Serum or Plasma [facility] Urea nitrogen [Mass/volume] in Serum or Plasma [facility] Urea nitrogen [Mass/volume] in Serum or Plasma [facility] End: 02-19-2025 Urine Hold Cup Urine Hold Cup Lab Routine Renal calculus Once for 1 Occurrences starting 02/19/2025 until 02/19/2025 [facility] Comment on above: Once for 1 Occurrenc es starting 02/19/2025 until 02/19/2025 End: 07-14-2022 XR ABDOMEN (KUB) (SINGLE AP VIEW) [employer] Work Phone: Comment on above: 1 Occurrences starti ng 07/14/2022 until 07/14/2022 End: 10-07-2023 XR Abdomen Single view [employer] Work Phone: Comment on above: Once for 1 Occurrenc es starting 10/07/2023 until 10/07/2023 [facility] [place] P[place] Category Payer Medicaid [facility] [id number] 2025 Medicare HMO [id number] 2025 Medicare [id number] 2025 Medicare [id number] 2024 Medicaid [id number] 2024 Self-pay [id number] 2023 Unknown [id number] 2021 Medicare [id number]. [id number] 2021 Unknown ANTHEM BLUE CROS S AND BLUE SHIELD ANTHEM MEDIBLUE HMO [id number] 2021-Present [phone] [address] [place] [address] HMO [id number]. [id number] 2014 Medicare [id number]. [id number] 1948 Unknown [id number] 2.16.840.1.030716.3.579.2.668 1948 Unknown [id number] 2.16.840.1.993526.3.579.2 1948 Unknown [id number] 2.16.840.1.630775.3.579.2 1948 Unknown [id number] 2.16.840.1.332325.3.579.2 1948 Unknown [id number] 2.16.840.1.013133.3.579.2 1948 Unknown [id number] 2.16.840.1.483173.3.579.2 1948 Unknown [id number] 2.16.840.1.183326.3.579.2 1948 Unknown [id number] 2.16.840.1.813564.3.579.2. 1948 Unknown [id number] 2.16.840.1.451775.3.579.2 1948 Unknown [id number] 2.16.840.1.940063.3.579.2 1948 Unknown [id number] 2.16.840.1.053640.3.579.2 1948 Unknown [id number] 2.16.840.1.637679.3.579.2.627 1948 Unknown [id number] 2.16.840.1.179700.3.579.2.627 1948 Unknown [id number] 2.16.840.1.523191.3.579.2.627 1948 Unknown [id number] 2.16.840.1.753561.3.579.2.627 1948 Unknown [id number] 2.16.840.1.276806.3.579.2.627 1948 Unknown [id number] 2.16.840.1.531026.3.579.2.627 1948 Unknown [id number] 2.16.840.1.159360.3.579.2.627 Unknown Unknown [id number] 2.16.840.1.368318.3.579.2.462 Unknown [id number] 2.16.840.1.019967.3.579.2.462 Unknown [id number] 2.16.840.1.809989.3.579.2.462 Unknown [id number] 2.16.840.1.796264.3.579.2.462 Unknown [id number] 2.16.840.1.516668.3.579.2.462 Unknown [id number] 2.16.840.1.643519.3.579.2.462 Unknown [id number] 2.16.840.1.536421.3.579.2.462 Unknown [id number] 2.16.840.1.191201.3.579.2.462 Social History Date Type Detail Facility Start: 07-24-2019 End: 12-28-2024 Never smoked tobacco (finding) [facility] Start: 1950 Sex Assigned At Female A [facility] Start: 03-05-2022 End: 09-17-2022 Tobacco use and exposure Smokeless tobacco non-user [employer] Phone: Start: 03-12-2022 End: 02-19-2025 Alcohol intake Lifetime non-drinker (finding) [employer] Phone: Start: 03-05-2022 History SDOH Alcohol Frequency 1 [employer] Phone: Start: 1950 Sex Assigned At Not on file S [employer] Work Phone: Start: 03-02-2022 End: 09-17-2022 Exposure to SARS-CoV-2 (event) Not sure [facility] Start: 12-22-2022 Tobacco smoking stat [facility] Unknown if ever smoked [facility] Start: 11-16-2022 End: 02-19-2025 History of Social function [facility] [employer] Start: 11-16-2022 End: 02-19-2025 Tobacco use panel [facility] [employer] Within the last year , have you been afraid of your partner or ex-partner? No [facility] [employer] Start: 06-28-2022 End: 02-27-2025 Sex Female (finding) [facility] Medical Equipment Procedure Code Equipment Code Equipment Origin al Text Equipment Identifier Dates Stent Uret 6fr 2 6cm [facility] - [id number] Start: 12-06-2023 Stent Uret 6fr 2 6cm [facility] - [id number] Start: 01-06-2024 Stent Uret 6fr 2 6cm [facility] - [id number] Start: 02-19-2025 Goals Date Patient Goal Desired Activity /State Functional Status Date Assessment Result Facility 11-22-2023 Functional Status Awake, Resting [facility] 11-20-2023 Functional Status Independent [facility] 11-11-2023 Functional Status Awake, Resting [facility] 11-07-2023 Functional Status ID band on, Allergy Band on, Call device within reach, Bed in low position, Wheels locked, Upper/Half-Length side-rails up, Phone within reach, personal items within reach, Bedside Cart Locked, Visitor at bedside [facility] 11-03-2023 Functional Status Standard Safet y ID band on, Call device within reach, Bed in low position, Wheels locked, Upper/Half-Length side-rails up, Bedside Cart Locked, Safety level maintained [facility] 01-07-2023 Functional Status Home Living Ad ditional Information OBJECTIVE Vitals: BP 133/91 Posture: forward head posture Gait: amb with FWW, small step length Sensation: no abnormalities or asymmetries Edema: R calf 37.5cm, L calf 37.5 cm AROM: 5-106 PROM: 0-110 [facility] 12-30-2022 Functional status Ambulates;Up ad quincy [facility] Work Phone: Mental Status Date Assessment Result Facility 11-22-2023 Mental Status Oriented x 4 [facility] 11-20-2023 Mental Status Orientation Oriented x 4 [facility] 11-20-2023 Mental Status [facility] 11-11-2023 Mental Status Oriented x 4 [facility] 11-07-2023 Mental Status Oriented x 4 [facility] 11-03-2023 Mental Status Orientation Oriented x 4 [facility] 12-30-2022 Cognitive function Voice/Name [facility] Work Phone: Clinical Notes 09-15-2021 to 03-06-2025 [...] 1 YEAR FROM NOW. THANK YOU DDL [facility] 03-06-2025 Miscellaneous Notes PT IS SCHEDULED FOR 02/26/26 SO THIS WILL HAVE A PRIOR AUTH DONE IN 1 YEAR FROM NOW. THANK YOU DDL Your patient has been scheduled for their CT ABDOMEN PELVIS WO on 02-26-[address] [facility]. If testing requires an insurance authorization, the authorization must be in place 48 hours prior to the scheduled test or testing will be cancelled. Thank you, Central Scheduling documented in this encounter [facility] 03-06-2025 Telephone encounter Note Your patient has been scheduled for their CT ABDOMEN PELVIS WO on 02-26-[address] [facility]. If testing requires an insurance authorization, the authorization must be in place 48 hours prior to the scheduled test or testing will be cancelled. Thank you, Central Scheduling [facility] 03-06-2025 History of Present illness Narrative [...] betadine prep well. UROJET 6 ML urethra [facility] [id number] LOT # [id number] EXPIRES 11/2026 ADMIN BY CHARAN DOBSON Pt tolerated well documented in this encounter [facility] 03-06-2025 Note Cystoscopy Procedure Note Indications: [...] evacuation in the future Ashok Eastman M.D. [facility] 02-22-2025 Telephone encounter Note Patient's son Colton called back in on this message. Colton states that patient is in an extended care [place] facility and they are giving patient the antibiotic as prescribed. Colton didn't have any further questions or concerns at this time. [facility] 02-22-2025 Miscellaneous Notes Patient's son Colton [...] cover her UTI documented in this encounter [facility] 02-22-2025 Telephone encounter Note Please inform patient of result when Pt/son returns call. [facility] 02-22-2025 Telephone encounter Note ----- Message from ALONDRA Yap CNP sent at 02/22/2025 7:09 AM EDT ----- Let her know the antibiotic she is on should cover her UTI [facility] 02-20-2025 Telephone encounter Note Scheduled 03/06/25 @09:20am [address] [facility] 02-20-2025 Miscellaneous Notes Scheduled 03/06/25 @09:20am [address] Cysto, stent removal in 2 weeks documented in this encounter [facility] 02-19-2025 Nurse Note Pt ambulated to bathroom with assist, pain tolerable, free from nausea. Attempted to call report to Alvin Chun, message left for RN. Will send DC instructions home with pt and discharge instructions reviewed with pts son at bedside and copy of instructions also given to son. [facility] 02-19-2025 Miscellaneous Notes Pt ambulated to [...] PRE-PROCEDURE ROUNDING COMPLETE. [phone] times preop and was unable to speak with anyone on the phone to verify if patient took any medications this morning. Spoke with Mariela De Dios CRNA to let know I was unable to verify any meds at this time. ERAS meds adjusted. documented in this encounter [facility] 02-19-2025 Note Patient: Surinder Jain dler Procedure Summary Date: 02/19/25 Room / Location: [address] Operating Room Anesthesia Start: 1425 Anesthesia [...] once all PACU criteria has been met. [facility] 02-19-2025 Note Patient: Surinder Jain dler Procedure Summary Date: 02/19/25 Room / Location: [address] Operating Room Anesthesia Start: 1425 Anesthesia [...] opportunity for questions and acknowledgement of understanding. [facility] 02-19-2025 Telephone encounter Note Cysto, stent removal in 2 weeks [facility] 02-19-2025 Note Airway Date/Time: 02/19/2025 2:31 PM Urgency: scheduled Airway not difficult General Information and Staff Patient location during procedure: Procedural Resident/COMBINATION PRESSER: Monica Briones APRN - COMBINATION PRESSER Performed: COMBINATION PRESSER Indications and Patient Condition Indications for airway management: anesthesia Sedation level: Asleep Preoxygenated: yes Patient position: sniffing Mask difficulty assessment: 0 - not attempted Final Airway Details Final airway type: supraglottic airway Successful airway: Igel Size 4 Number of attempts at approach: 1 Number of other approaches attempted: 0 [facility] 02-19-2025 Procedure note PreOp Dx Right renal [...] symptomatic could consider CVAC to clear debris [facility] 02-19-2025 Note PRE-PROCEDURE ROUNDING COMPLETE. [facility] 02-19-2025 Nurse Note PRE-PROCEDURE ROUNDING COMPLETE. [facility] 02-19-2025 Attending History and physical note [...] RIGHT URETERAL STENT PLACEMENT (Right: Urethra) Location: [address] Operating Room Surgeons: Sarath Ramos MD [...] who we are asked to see/evaluate by [facility] 03 for pre-operative evaluation prior to [...] -Discussed her plan with Trenton Garrett, JEF, RESERVATIONS CLERK, ANDREWP -multiple kidney stones largest measuring about [...] QT Interval 361 QTC Interval 392 P [place] 20 QRS [place] -25 T Wave [place] 30 VT Interval 202 Impression Sinus rhythm Atrial premature complexes in couplets Left ventricular hypertrophy Inferior infarct, old Anterior infarct, old ECHO and EF:None on file METS: > 4 Electronically signed by: ALONDRA Larson CNP Date: 02/15/2025 at 11:21 AM Cosigned by Sarath Hunt DO at 02/16/2025 8:34 PM EDT [employer] Work Phone: 02-19-2025 History and physical note H&P reviewed. The patient was examined and there are no changes to the H&P. Source Note - Sana Crowder APRN - WAREHOUSE WORKER - 02/15/2025 9:30 AM EDT Images from the original note were not included. Comprehensive Pre Surgical History and Physical ? Name: Surinder Rasheed : 1950 (Age-75 y.o.) Date of Service: Pt seen/examined on 02/15/2025 Procedure Information Date/Time: 02/19/25 1330 Procedures: CYSTOSCOPY, WITH RETROGRADE PYELOGRAM (Urethra) - 90 min RIGHT URETEROSCOPY WITH HOLIUM LASER LITHOTRIPSY (Right: Urethra) RIGHT URETERAL STENT PLACEMENT (Right: Urethra) Location: [address] Operating Room Surgeons: Sarath Ramos MD [...] who we are asked to see/evaluate by [place] [address] for pre-operative evaluation prior to ? CYSTOSCOPY, [...] -Discussed her plan with Trenton Garrett, JEF, RESERVATIONS CLERK, ANDREWP -multiple kidney stones largest measuring about [...] QT Interval 361 QTC Interval 392 P [place] 20 QRS [place] -25 T Wave [place] 30 VT Interval 202 Impression Sinus rhythm Atrial premature complexes in couplets Left ventricular hypertrophy Inferior infarct, old Anterior infarct, old ECHO and EF:None on file METS: > 4 Electronically signed by: ALONDRA Larson CNP Date: 02/15/2025 at 11:21 AM Cosigned by Sarath Hunt DO at 02/16/2025 8:34 PM EDT documented in this encounter [facility] 02-19-2025 Note H&P reviewed. The vianey bess was examined and there are no changes to the H&P. [facility] 02-19-2025 Nurse Note Attempted to call [facility] at [phone] four times preop and was unable to speak with anyone on the phone to verify if patient took any medications this morning. Spoke with Mariela De Dios CRNA to let know I was unable to verify any meds at this time. ERAS meds adjusted. [facility] 02-18-2025 Hospital Discharge instructions Farhana Quach [...] done either at your pre-operative day at [facility], [facility], or with your regular doctor. - Some [...] please call . documented in this encounter [facility] 02-18-2025 Telephone encounter Note Called pt's son, no answer, left message regarding surgery tomorrow and that is still planned. Asked to call the office back with any questions. [facility] 02-18-2025 Miscellaneous Notes Called pt's son, no answer, left message regarding surgery tomorrow and that is still planned. Asked to call the office back with any questions. Call returned lizet Blackwell . Advised of results and recommendations . Son will not be able to fruit picker medication until the end of the day [...] instructions. Thank you. documented in this encounter [facility] 02-18-2025 Telephone encounter Note Call returned lizet Blackwell . Advised of results and recommendations . Son will not be able to fruit picker medication until the end of the day . Pt is scheduled for surgery tomorrow . Please verify that surgery is still on even of patient receives only 2 doses of ordered Macrobid [facility] 02-18-2025 Telephone encounter Note LVM verbatim per VIANEY Lawson. For patient to call office back for results. [facility] 02-18-2025 Telephone encounter Note ----- Message from Kiara Wayne PA-C sent at 02/18/2025 7:39 AM EDT ----- Please call the patient and let her know The urine culture results were positive for a urinary tract infection. Antibiotic therapy has been prescribed and sent to the pharmacy with appropriate instructions. Thank you. [facility] 02-15-2025 Note Patient: Surinder barone Procedure Information Date/Time: 02/19/25 1330 Procedures: CYSTOSCOPY, WITH RETROGRADE PYELOGRAM (Urethra) - 90 min RIGHT URETEROSCOPY WITH HOLIUM LASER LITHOTRIPSY (Right: Urethra) RIGHT URETERAL STENT PLACEMENT (Right: Urethra) Location: [facility] OR [address] [place] [address] Operating Room Surgeons: Sarath Ramos MD Relevant [...] disorder Comment: prolapse No date: Pulmonary HTN [facility] No date: Thyroid disease Comment: hypothyroidism Past [...] discussed with patient and healthcare power of security installer. Anesthesia Carson Considerations Mallampati 4 Has had [...] infarct, old Equipment Requests: Additional Equipment Requests [facility] 02-15-2025 Note Comprehensive Pre Koenig rgical History and Physical ? Name: Surinder Rasheed : 1950 (Age-75 y.o.) Date of Service: Pt seen/examined on 02/15/2025 Procedure Information Date/Time: 02/19/25 1330 Procedures: CYSTOSCOPY, WITH RETROGRADE PYELOGRAM (Urethra) - 90 min RIGHT URETEROSCOPY WITH HOLIUM LASER LITHOTRIPSY (Right: Urethra) RIGHT URETERAL STENT PLACEMENT (Right: Urethra) Location: [address] Operating Room Surgeons: Sarath Ramos MD [...] who we are asked to see/evaluate by [place] [address] for pre-operative evaluation prior to ? CYSTOSCOPY, [...] -Discussed her plan with Trenton Garrett, JEF, RESERVATIONS CLERK, CUNP -multiple kidney stones largest measuring about [...] of bleeding, in (more content not included)... [facility] 02-15-2025 Note Comprehensive Pre Koenig rgical History and Physical ? Name: Surinder Rasheed : 1950 (Age-75 y.o.) Date of Service: Pt seen/examined on 02/15/2025 Procedure Information Date/Time: 02/19/25 1330 Procedures: CYSTOSCOPY, WITH RETROGRADE PYELOGRAM (Urethra) - 90 min RIGHT URETEROSCOPY WITH HOLIUM LASER LITHOTRIPSY (Right: Urethra) RIGHT URETERAL STENT PLACEMENT (Right: Urethra) Location: [facility] OR [address] [place] [address] Operating Room Surgeons: Sarath Ramos MD Chief [...] who we are asked to see/evaluate by [facility] 03 for pre-operative evaluation prior to [...] -Discussed her plan with Trenton Garrett, JEF, RESERVATIONS CLERK, CUNP -multiple kidney stones largest measuring about [...] of bleeding, in (more content not included)... [facility] 02-13-2025 Telephone encounter Note Spoke to pts son about upcoming PAT 02/15/2025 and surgery 02/19/2025 at [facility] Doctor: Rachel PAT (arrive 15 min [...] counter vitamins 3 days prior to surgery [facility] 02-13-2025 Miscellaneous Notes Spoke to pts son about upcoming PAT 02/15/2025 and surgery 02/19/2025 at [facility] Doctor: Rachel PAT (arrive 15 min [...] Teresita gama DIAGNOSIS: right kidney stone FACILITY: [facility] DETAILS: OUTPT ANESTHESIA: GENERAL TIME REQUESTED: 90 minutes DATE REQUESTED: First available SURGERY ORDERS: Already placed by Kiara Wayne PA-C on 02/07/2025 POST OP FOLLOW UP: cysto stent removal 1-2 wks Urine culture ordered: Yes CT scan: Yes documented in this encounter [facility] 02-13-2025 Telephone encounter Note Lvm to discuss upcoming PAT and surgery instructions [facility] 02-07-2025 Note SURGERY SCHEDULING Surgeon: Any PROCEDURE: cystoscopy, right ureteroscopy, laser lithotripsy, retrograde pyelogram, right ureteral stent placement. - Special request: Teresita laser DIAGNOSIS: right kidney stone FACILITY: [facility] DETAILS: OUTPT ANESTHESIA: GENERAL TIME REQUESTED: 90 minutes DATE REQUESTED: First available SURGERY ORDERS: Already placed by Kiara Wayne PA-C on 02/07/2025 POST OP FOLLOW UP: cysto stent removal 1-2 wks Urine culture ordered: Yes CT scan: Yes [facility] 02-07-2025 Telephone encounter Note SURGERY SCHEDULING Surgeon: Any PROCEDURE: cystoscopy, right ureteroscopy, laser lithotripsy, retrograde pyelogram, right ureteral stent placement. - Special request: Teresita laser DIAGNOSIS: right kidney stone FACILITY: [facility] DETAILS: OUTPT ANESTHESIA: GENERAL TIME REQUESTED: 90 minutes DATE REQUESTED: First available SURGERY ORDERS: Already placed by Kiara Wayne PA-C on 02/07/2025 POST OP FOLLOW UP: cysto stent removal 1-2 wks Urine culture ordered: Yes CT scan: Yes [facility] 02-07-2025 History of Present illness Narrative [...] CT abdomen pelvis wo IV contrast Completed [id number] Created PACS Images Show images for CT [...] -Discussed her plan with Trenton Garrett, JEF, RESERVATIONS CLERK, CUNP -multiple kidney stones largest measuring about [...] patient/patien's son to schedule. CHATO Lawson PA-C [facility] All questions and concerns were answered and addressed. The patient expressed understanding and agrees with the plan. Reviewed and approved by Kiara Wayne PA-C, on 02/07/2025 at 11:44 AM. documented in this encounter [facility] 02-07-2025 Instructions Kiara Wayne PA-C - 02/07/2025 11:00 AM EDT Images from the original note were not included. [facility] [address] [facility] [address] [place] [address] Ph. Kidney Stone Diet Instructions What is [...] diet. You may need to see a home health registered nurse to help make some of these changes. [...] Chicken Noodle Soup (dried) Coffee Cola beverages Fallon/ cornbread [place] Lettuce Buitrago Beans Marmalade Oranges [place] Parsnips Peaches Pears Peas Pepper Pineapple Plums Prunes Sardines Soy Products Sponge Cake Tomatoes Tomato juice Turnip Watercress Beans Beer Beets Blackberries Black and Red Raspberries Blueberries Celery Chard Chocolate [place] Coffee Powder Collards [place] Grapes Crackers made from Soy Flour Currants Dandelion Greens Eggplant Escarole Fruit Cake Fruit Salad (canned) Green Chan Pepper Grits Juices containing berries Kale Leeks Lemon and Little Shell Tribe Peel Nuts (peanuts and pecans) Okra Ovaltine Parsley Pokeweed Rhubarb Rutabagas Spinach Strawberries Summer Squash Sweet Potatoes Tea Tofu Tomato Soup Wheat Germ documented in this encounter [facility] 02-05-2025 Telephone encounter Note Spoke with patient's sonmolly Blackwell and given Chad's message verbatim. Colton verbalized understanding and have no further questions or concerns at this time. Patient will see Kiara on 02/07/2025 . [facility] 02-05-2025 Miscellaneous Notes Spoke with patient's sonmolly Blackwell and given [...] 02-07-25. Thank you documented in this encounter [facility] 02-05-2025 Telephone encounter Note Attempted to contact patient to give Chad's message verbatim. LVM for patient to call the office. [facility] 02-05-2025 Telephone encounter Note ----- Message from ALONDRA Lantigua CNP sent at 02/04/2025 5:08 PM EDT ----- Please let patient know her CT scan shows she does have some stones in her kidneys, but they are not causing any blockages at this time. Please also remind patient of her upcoming appointment with Kiara Wayne PA-C on 02-07-25. Thank you [facility] 01-18-2025 Telephone encounter Note Your patient has been scheduled for their CT on 01/29/2025 at 4:15pm. If testing requires an insurance authorization, the authorization must be in place 48 hours prior to the scheduled test or testing will be cancelled. Thank you, Central Scheduling [phone] [facility] 01-18-2025 Miscellaneous Notes Your patient has been scheduled for their CT on 01/29/2025 at 4:15pm. If testing requires an insurance authorization, the authorization must be in place 48 hours prior to the scheduled test or testing will be cancelled. Thank you, Central Scheduling [phone] documented in this encounter [facility] 02-14-2024 History of Present illness Narrative [...] in about 1 year (around 02/13/2025). Sarath Ramos MD 02/14/24 11:10 AM documented in this encounter [facility] 02-10-2024 Note ORIGINAL HISTORY: Memory changes [...] Sign Date: 02/10/2024 11:53:58 AM Ordering Provider: [facility] 01-15-2024 Note . MICRO - Microbiology PROCEDURE: [...] Locations *1: This test was performed at: [facility], [address] [place] [address]) 01-12-2024 Note PERIPHERAL WHOLE BLOOD NA Heparin Tube PATH PROF CPT: 49307 Testing performed by [facility] 01-11-2024 Note PERIPHERAL WHOLE BLOOD NA Heparin Tube PATH PROF CPT: 15756 Testing performed by [facility] 01-11-2024 Note PERIPHERAL WHOLE BLOOD NA Heparin Tube PATH PROF CPT: 40148 Testing performed by [facility] 01-11-2024 Note PERIPHERAL WHOLE BLOOD NA Heparin Tube PATH PROF CPT: 01998 Testing performed by [facility] 01-11-2024 Note PERIPHERAL WHOLE BLOOD NA Heparin Tube PATH PROF CPT: 26182 Testing performed by [facility] 01-11-2024 Note PERIPHERAL WHOLE BLOOD NA Heparin Tube PATH PROF CPT: 43860 Testing performed by [facility] 01-11-2024 Note PERIPHERAL WHOLE BLOOD NA Heparin Tube PATH PROF CPT: 45566 Testing performed by [facility] 01-06-2024 Note Formatting of this n ote might be different from the original. Discharge information given to the patient. Patient and family verbalized understanding of information. All questions were answered before discharge. Patient ambulated, denies dizziness or nausea. Tolerating PO fluids and crackers. Vital signs are stable. Patient has changed and is being discharged home in a wheelchair with valuables. [facility] 01-06-2024 Note Formatting of this n ote might be different from the original. Discharge information given to the patient. Patient and family verbalized understanding of information. All questions were answered before discharge. Patient ambulated, denies dizziness or nausea. Tolerating PO fluids and crackers. Vital signs are stable. Patient has changed and is being discharged home in a wheelchair with valuables. [facility] 01-06-2024 Miscellaneous Notes Discharge information given to [...] mag three scan documented in this encounter [facility] 01-06-2024 Note Formatting of this n ote might be different from the original. Patient family/visitor updated by RN at this time. [facility] 01-06-2024 Note Formatting of this n ote might be different from the original. Patient family/visitor updated by RN at this time. [facility] 01-06-2024 Hospital Discharge instructions Abelardo Fritz [...] be sent through Care Everywhere.Cystoscopy Discharge Instructions (Burmese)Ureteroscopy (Burmese)Laser Lithotripsy for Kidney Stones Discharge Instructions (Burmese)Ureteral Stent Discharge Instructions (Burmese)documented in this encounter [facility] 01-06-2024 Note Formatting of this n [...] in 4 days, then follow up for [facility] three scan [facility] 01-06-2024 Note Formatting of this n [...] then follow up for mag three scan [facility] 01-06-2024 History and physical note Images [...] benefits reviewed with patient. patient expresses understanding. [facility] Phone: 01-06-2024 History and physical note Images [...] patient expresses understanding. documented in this encounter [facility] 12-06-2023 Note Formatting of this n ote might be different from the original. Patient tolerating PO, pain controlled, has ambulated and voided x2. Discharge instructions completed with patient and family at bedside. [facility] 12-06-2023 Miscellaneous Notes Patient tolerating PO, [...] a few weeks documented in this encounter [facility] 12-06-2023 Note Formatting of this n [...] and stent removal in a few weeks [facility] 12-06-2023 History and physical note Interval [...] (68 kg) SpO2 96% BMI 26.57 kg/m [facility] Work Phone: 12-06-2023 History and physical note [...] BMI 26.57 kg/m documented in this encounter [facility] 11-22-2023 Note . MICRO - Microbiology PROCEDURE: Urine Culture [*1] SOURCE: Urine, Pedibag BODY SITE: COLLECTED DATE/TIME: 11/20/2023 14:23 EST RECEIVED DATE/TIME: 11/21/2023 00:23 EST START DATE/TIME: 11/21/2023 00:23 EST FREE TEXT SOURCE: FINAL REPORTS Final Report [] Verified Date/Time/Personnel: 11/22/2023 13:18 EST 10,000 - 50,000 cfu/ml Toni albicans Contact Microbiology within 72 hours if further identification is indicated ([id number]). [place] counts from a single urine are equivocal in determining infection vs. colonization of yeast. Multiple cultures at least 24 hours apart may be helpful in differentiating colonization from infection. SUSCEPTIBILITY RESULTS Toni albicans Antibiotic MEGGAN Dilut MEGGAN Inter ID Panel Not Not Applicable Applicable Performing Locations *1: This test was performed at: [facility], [address] [place] [address], [address] , Replaced by [facility] ([place]) 11-22-2023 Hospital Discharge instructions Patient Education 11/22/2023 [...] your healthcare provider whether you should use mqox-znz-czydgxh medicines to treat a yeast infection. Self-treatment may depend on whether: You've had a yeast infection in the past. You're at risk for STDs. Call your healthcare provider if symptoms do not go away or come back after treatment. 1350-2611 [employer]. [address] [place] [address], [place] [address]. All rights reserved. This information is not intended as a substitute for professional medical care. Always follow your healthcare professional's instructions. Follow Up Care 11/22/2023 00:30:20 With:JLUIS BEJARANO MD, [facility] Address: [address] [place] [phone] When:2-4 days [facility] 11-22-2023 Note Discharge Instructions Thank you for allowing [facility] to assist you with your healthcare needs. The following is important discharge information regarding your hospital visit. Diagnosis from Today's Visit Hematuria What to Do Next Instructions from Your Care Team No qualifying data available. Post Acute Orders No qualifying data available. You Need to Schedule the Following Appointments Follow Up with JLUIS BEJARANO MD, [facility] When Within 2-4 days Where: [address] [place] [phone] Allergies Statins (myalgias) Flexeril (Irregular heart beat) [...] TRIM a zolmolly) Anti-Fungal Liquid, FungiCURE Pump [place], Lotrimin AF Cream for Ringworm, Lotrimin AF [...] may report side effects to FDA at 5-372-CPS-8912. What other drugs will affect clotrimazole topical? It is not likely that other drugs you take orally or inject will have an effect on topically applied clotrimazole. But many drugs can interact with each other. Tell each of your health care providers about all medicines you use, including prescription and viag-zup-erxmemo medicines, vitamins, and herbal products. Where can I get more information? Your pharmacist can provide more information about clotrimazole topical. Remember, keep this and all other medicines out of the reach of children, never share your medicines with others, and use this medication only for the indication prescribed. Every effort has been made to ensure that the information provided by [employer]. ('[employer]') is accurate, up-to-date, and complete, but no guarantee is made to that effect. Drug information contained herein may be time sensitive. [employer] information has been compiled for use by healthcare practitioners and consumers in the [place] and therefore [employer] does not warrant that uses outside of the [place] are appropriate, unless specifically indicated otherwise. [employer] drug information does not endorse drugs, diagnose patients or recommend therapy. [employer] drug information is an informational resource designed [...] effective or appropriate for any given patient. [employer] does not assume any responsibility for any aspect of healthcare administered with the aid of information [employer] provides. The information contained herein is not intended to cover all possible uses, directions, precautions, warnings, drug interactions, allergic reactions, or adverse effects. If you have questions about the drugs you are taking, check with your doctor, nurse or pharmacist. Copyright 4675-4812 [employer]. Version: 6.01. Revision Date: 06/28/2023. clotrimazole vaginal [...] may report side effects to FDA at 7-353-NAA-0085. What other drugs will affect clotrimazole vaginal? There may be other drugs that can interact with clotrimazole vaginal. Tell your doctor about all medications you use. This includes prescription, cydu-vzs-qgdtnyg, vitamin, and herbal products. Do not start [...] to ensure that the information provided by [employer]. ('[employer]') is accurate, up-to-date, and complete, but no guarantee is made to that effect. Drug information contained herein may be time sensitive. [employer] information has been compiled for use by healthcare practitioners and consumers in the [place] and therefore [employer] does not warrant that uses outside of the [place] are appropriate, unless specifically indicated otherwise. [employer] drug information does not endorse drugs, diagnose patients or recommend therapy. [employer] drug information is an informational resource designed [...] effective or appropriate for any given patient. [facility] does not assume any responsibility for any aspect of healthcare administered with the aid of information [employer] provides. The information contained herein is not intended to cover all possible uses, directions, precautions, warnings, drug interactions, allergic reactions, or adverse effects. If you have questions about the drugs you are taking, check with your doctor, nurse or pharmacist. Copyright 6361-4606 [facility]. Version: 6.01. Revision Date: 07/14/2023. Education Materials [...] your healthcare provider whether you should use hsnl-epa-buktukz medicines to treat a yeast infection. Self-treatment may depend on whether: You've had a yeast infection in the past. You're at risk for STDs. Call your healthcare provider if symptoms do not go away or come back after treatment. 1703-3533 [employer]. [address] [place] [address], [place] [address]. All rights reserved. This information is not intended as a substitute for professional medical care. Always follow your healthcare professional's instructions. Additional Information VACCINATE! IT SAVES LIVES! Members of the community who have not yet received the COVID-19 vaccine and would like to receive it can visit one of [facility] vaccine clinics. There are many vaccine clinic locations within the [facility]. For locations and available times, please visit [email or web address].[email or web address].g [email or web address] It is important to note that some COVID mobile vaccine clinics are held outdoors and may be canceled in rainy or stormy conditions. To learn more about pediatric vaccinations (ages 5-11), we invite you to visit the [facility] webpage. https://www.[email or web address] Nets.[email or web address]/pa [email or web address]-Bbtws-Cgmjdpmwdae-Freque ccny-Adayu-Vfuipbqqa.html To learn more about the COVID-19 vaccine, we invite you to visit the CDC website for a list of frequently asked questions. https://www.cdc.gov/coronavirus/2 019-ncov/vaccines/faq.html [facility] Patient Portal Access Instructions: Stay connected with your healthcare team and access your personal medical information anytime with the [facility] Patient Portal. If you would like a full copy of your medical records please contact the [facility] Medical Records Department Tuesday through Tuesday between 8a.m. and 4:30p.m. Please follow the directions below to access the portal: 1.Access the email account you provided upon registration to the hospital.2.Look for an invitation email from [facility].3.Open the email and access the invitation link: Accept Invitation to [facility]4.Fill in the required salazar to create your account. Sign into [email or web address] with your username and password that you [...] you will allow to register on the [facility] [facility] Patient Portal for access to your information. You can also access the [facility] Patient Portal on the [employer]base doris. Simply click on "Health Records" under "Health Data" and then click on the [employer] logo. HOW TO SAFELY DISPOSE OF PRESCRIPTION [...] Call your local pharmacy or go to [email or web address] to find one close to you.3.Make use of household items: Use cat litter or old coffee grounds to dispose medications if other options are not available. Mix your drugs with these household products, seal them in an airtight container and throw it into the garbage. Call [facility]: [phone] to be sure your drugs can be [...] aware that I should contact my doctor. 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 [address] [place] [address]. All rights reserved. This information is not intended as a substitute for professional medical care. Always follow your healthcare professional's instructions. Follow Up Care 11/20/2023 13:02:30 With:STACEY NEWBERRY Address: [address] [place] [address] [place] [phone] Business (1) When:2-4 days Comments:Take antibiotic as prescribed. You may also take Azo. Return if any worsening or concerning symptoms. Follow-up with your urologist. [facility] 11-20-2023 Emergency department Discharge summary Discharge Instructions Thank you for allowing [facility] to assist you with your healthcare needs. [...] symptoms. Follow-up with your urologist. Where: [address] [facility] [place] [address] [phone] Business (1) Allergies Statins (myalgias) Flexeril (Irregular [...] may report side effects to FDA at 6-192-SGL-1175. What other drugs will affect cefdinir? Tell your doctor about all your other medicines, especially: probenecid; or vitamin or mineral supplements that contain iron. This list is not complete. Other drugs may affect cefdinir, including prescription and dbbf-fyh-ysjrjia medicines, vitamins, and herbal products. Not all [...] to ensure that the information provided by [employer]. ('Multum') is accurate, up-to-date, and complete, but no guarantee is made to that effect. Drug information contained herein may be time sensitive. [employer] information has been compiled for use by healthcare practitioners and consumers in the [place] and therefore [employer] does not warrant that uses outside of the [place] are appropriate, unless specifically indicated otherwise. [employer]'s drug information does not endorse drugs, diagnose patients or recommend therapy. [employer] drug information is an informational resource designed [...] effective or appropriate for any given patient. [facility] does not assume any responsibility for any aspect of healthcare administered with the aid of information [facility] provides. The information contained herein is not intended to cover all possible uses, directions, precautions, warnings, drug interactions, allergic reactions, or adverse effects. If you have questions about the drugs you are taking, check with your doctor, nurse or pharmacist. Copyright 0355-7003 [facility]Cont[facility]nt[facility]. Version: 9.01. Revision Date: 07/01/2023. Education Materials [...] swelling in the outer vaginal area (labia) 1578-6123 [employer]. [address] [place] [address]. All rights reserved. This information is not intended as a substitute for professional medical care. Always follow your healthcare professional's instructions. Additional Information VACCINATE! IT SAVES LIVES! Members of the community who have not yet received the COVID-19 vaccine and would like to receive it can visit one of [facility] vaccine clinics. There are many vaccine clinic locations within the [facility]. For locations and available times, please visit www.gettheshot.coronavirus.[place].g ov/. It is important to note that some COVID mobile vaccine clinics are held outdoors and may be canceled in rainy or stormy conditions. To learn more about pediatric vaccinations (ages 5-11), we invite you to visit the [facility] webpage. https://www.[facility].org/pa ges/6828-Bsleq-Esvfvbfhekx-Freque kbar-Wbjuy-Nxesqaggq.html To learn more about the COVID-19 vaccine, we invite you to visit the CDC website for a list of frequently asked questions. https://www.cdc.gov/coronavirus/2 019-ncov/vaccines/faq.html [facility] Patient Portal Access Instructions: Stay connected with your healthcare team and access your personal medical information anytime with the [facility] Patient Portal. If you would like a full copy of your medical records please contact the [facility] Medical Records Department Tuesday through Tuesday between 8a.m. and 4:30p.m. Please follow the directions below to access the portal: 1.Access the email account you provided upon registration to the [facility].2.Look for an invitation email from [facility].3.Open the email and access the invitation link: Accept Invitation to [facility]4.Fill in the required salazar to create your [...] you will allow to register on the [facility] Patient Portal for access to your information. You can also access the [facility] Patient Portal on the Enbase doris. Simply click on "Health Records" under "Health Data" and then click on the [facility] logo. HOW TO SAFELY DISPOSE OF PRESCRIPTION [...] Call your local pharmacy or go to http://SFOX.Metagenics/2J7Mn3u to find one close to you.3.Make use of household items: Use cat litter or old coffee grounds to dispose medications if other options are not available. Mix your drugs with these household products, seal them in an airtight container and throw it into the garbage. Call [facility]: [phone] to be sure your drugs can be [...] aware that I should contact my doctor. 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 Please advise [facility] 11-14-2023 Miscellaneous Notes Message released to [...] in 5 days. documented in this encounter [facility] 11-14-2023 Telephone encounter Note Left voicemail for patient or son to return call for results and recommendations. [facility] 11-14-2023 Telephone encounter Note ----- Message [...] for her. He called in 5 days. [facility] 11-14-2023 Note . MICRO - Microbiology PROCEDURE: [...] Locations *1: This test was performed at: [address], [facility] , Replaced by [facility] ([place]) 11-12-2023 Hospital Discharge instructions Patient Education 11/12/2023 [...] If needed, more treatment may be started. 8946-7824 [employer]. [address] [place] [address], [place] [address]. All rights reserved. This information is not intended as a substitute for professional medical care. Always follow your healthcare professional's instructions. Follow Up Care 11/11/2023 23:36:51 With:STACEY NEWBERRY DO Address: [address] [place] [address]- [phone] When:2-4 days [facility] 11-12-2023 Note Discharge Instructions Thank you for allowing [facility] to assist you with your healthcare needs. [...] DO When Within 2-4 days Where: [address] [place] [address]- [phone] Allergies Statins (myalgias) Flexeril (Irregular heart beat) [...] may report side effects to FDA at 1-386-IHS-6117. What other drugs will affect cephalexin? Tell your doctor about all your other medicines, especially: metformin; or probenecid. This list is not complete. Other drugs may affect cephalexin, including prescription and yzck-htg-mjhseim medicines, vitamins, and herbal products. Not all [...] to ensure that the information provided by [employer]. ('[employer]um') is accurate, up-to-date, and complete, but no guarantee is made to that effect. Drug information contained herein may be time sensitive. [employer] information has been compiled for use by healthcare practitioners and consumers in the [place] and therefore [employer] does not warrant that uses outside of the [place] are appropriate, unless specifically indicated otherwise. [employer] drug information does not endorse drugs, diagnose patients or recommend therapy. [employer] drug information is an informational resource designed [...] effective or appropriate for any given patient. [facility] does not assume any responsibility for any aspect of healthcare administered with the aid of information [employer] provides. The information contained herein is not intended to cover all possible uses, directions, precautions, warnings, drug interactions, allergic reactions, or adverse effects. If you have questions about the drugs you are taking, check with your doctor, nurse or pharmacist. Copyright 1506-9821 [facility] [employer]. Version: 12. Revision Date: 06/29/2023. Education Materials [...] If needed, more treatment may be started. 0734-4240 [employer]. [address] [place] [address], [place] [address]. All rights reserved. This information is not intended as a substitute for professional medical care. Always follow your healthcare professional's instructions. Additional Information VACCINATE! IT SAVES LIVES! Members of the community who have not yet received the COVID-19 vaccine and would like to receive it can visit one of [facility] vaccine clinics. There are many vaccine clinic locations within the [facility]. For locations and available times, please visit www.get[facility] all[facility] hospitalot.coronavirus.[place].g ov/. It is important to note that some COVID mobile vaccine clinics are held outdoors and may be canceled in rainy or stormy conditions. To learn more about pediatric vaccinations (ages 5-11), we invite you to visit the [facility] webpage. https://www.[facility] Replys.org/pa ges/7914-Ccoua-Ezoveruowef-Freque raax-Rfnzh-Gkndqkuly.html To learn more about the COVID-19 vaccine, we invite you to visit the CDC website for a list of frequently asked questions. https://www.cdc.gov/coronavirus/2 019-ncov/vaccines/faq.html [employer] Patient Portal Access Instructions: Stay connected with your healthcare team and access your personal medical information anytime with the [employer] Patient Portal. If you would like a full copy of your medical records please contact the [facility] Medical Records Department Tuesday through Tuesday between 8a.m. and 4:30p.m. Please follow the directions below to access the portal: 1.Access the email account you provided upon registration to the hospital.2.Look for an invitation email from [facility].3.Open the email and access the invitation link: Accept Invitation to [facility] [employer]4.Fill in the required salazar to create your account. Sign into [email or web address] with your username and password that you [...] you will allow to register on the [employer] Patient Portal for access to your information. You can also access the [employer] Patient Portal on the Enbase doirs. Simply click on "Health Records" under "Health Data" and then click on the [employer] logo. HOW TO SAFELY DISPOSE OF PRESCRIPTION [...] Call your local pharmacy or go to http://SFOX.Metagenics/4A8Df7h to find one close to you.3.Make use of household items: Use cat litter or old coffee grounds to dispose medications if other options are not available. Mix your drugs with these household products, seal them in an airtight container and throw it into the garbage. Call [facility]: [phone] to be sure your drugs can be [...] aware that I should contact my doctor. 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 Signature: Date/Time: Relationship to Patient: ____ Witness Name/Signature: Date/Time: [facility] 11-11-2023 Telephone encounter Note S: Patient spoke with [facility] nurse regarding: Vaginal burning - amoxicillin-clavulanate (Augmentin) [...] prior vaginal yeast infections Protocols used: Vaginal Bywjxthm-TRRCS-SY [facility] 11-11-2023 Miscellaneous Notes S: Patient spoke with [facility] nurse regarding: Vaginal burning - amoxicillin-clavulanate (Augmentin) [...] prior vaginal yeast infections Protocols used: Vaginal Tgckyohw-SWYSY-CX documented in this encounter [facility] 11-10-2023 History of Present illness Narrative Images from the original note were not included. Sarath Ramso MD 11/10/2023 at 2:15 PM Office follow [...] morning. 03/09/22 Historical Provider, potassium citrate-citric acid (Nerws-K-Xzgvtpbn) 5123-7635 MG packet Take 1 packet by mouth daily. Mix with 6 oz of cold water. Take after meals. 11/08/22 Cherry Zaragoza, RESERVATIONS CLERK - WAREHOUSE WORKER tamsulosin (Flomax) 0.4 MG 24 hr capsule [...] times daily for [address] from [facility] showing multiple right sided kidney stones and hydronephrosis Concern for right UPJ obstruction Will send urine culture Start augmentin Will plan on staged ureteroscopy and laser lithotripsy, May need pyeloplasty No follow-ups on file. Sarath Ramos MD 11/10/23 2:15 PM documented in this encounter [facility] 11-09-2023 Note . MICRO - Microbiology [...] Locations *1: This test was performed at: [address], [facility] , Replaced by [facility] ([place]) 11-08-2023 Note ORIGINAL EXAMINATION: CT OF THE ABDOMEN AND PELVIS WITHOUT NHIHSDHU19/12/2023 1:46 pm TECHNIQUE: CT of the abdomen [...] 11/08/2023 2:09:59 PM Ordering Provider: STACEY NEWBERRY [facility] 11-07-2023 Hospital Discharge instructions Patient Education 11/07/2023 [...] the nose or gums or easy bruising 1457-3450 [employer]. [address] [place] [address]. All rights reserved. This information is not intended as a substitute for professional medical care. Always follow your healthcare professional's instructions. Follow Up Care 11/07/2023 00:23:25 With:STACEY NEWBERRY DO Address: [address] [facility] [place] [address]- [phone] When:2-4 days [facility] 11-07-2023 Note Discharge Instructions Thank you for allowing [facility] to assist you with your healthcare needs. The following is important discharge information regarding your hospital visit. Diagnosis from Today's Visit Hematuria What to Do Next Instructions from Your Care Team No qualifying data available. Post Acute Orders No qualifying data available. You Need to Schedule the Following Appointments Follow Up with STACEY NEWBERRY DO When Within 2-4 days Where: [address] [facility] [place], [place] [id number]- [phone] Allergies Statins (myalgias) Flexeril (Irregular heart beat) [...] the nose or gums or easy bruising 3274-7394 [employer]. [address] [place] [address]. All rights reserved. This information is not intended as a substitute for professional medical care. Always follow your healthcare professional's instructions. Additional Information VACCINATE! IT SAVES LIVES! Members of the community who have not yet received the COVID-19 vaccine and would like to receive it can visit one of [facility] vaccine clinics. There are many vaccine clinic locations within the [facility]. For locations and available times, please visit www.gettheshot.coronavirus.[place].g ov/. It is important to note that some COVID mobile vaccine clinics are held outdoors and may be canceled in rainy or stormy conditions. To learn more about pediatric vaccinations (ages 5-11), we invite you to visit the [facility] webpage. https://www.[facility].org/pa ges/7199-Thedr-Bjalcxvuugs-Freque hext-Tkfeu-Pcdvonrhc.html To learn more about the COVID-19 vaccine, we invite you to visit the CDC website for a list of frequently asked questions. https://www.cdc.gov/coronavirus/2 019-ncov/vaccines/faq.html [facility] Patient Portal Access Instructions: Stay connected with your healthcare team and access your personal medical information anytime with the [facility] Patient Portal. If you would like a full copy of your medical records please contact the [facility] Medical Records Department Tuesday through Tuesday between 8a.m. and 4:30p.m. Please follow the directions below to access the portal: 1.Access the email account you provided upon registration to the [facility].2.Look for an invitation email from [facility].3.Open the email and access the invitation link: Accept Invitation to [facility]4.Fill in the required salazar to create your [...] you will allow to register on the [employer] Patient Portal for access to your information. You can also access the [employer] Patient Portal on the Expert TA. Simply click on "Health Records" under "Health Data" and then click on the [employer] logo. HOW TO SAFELY DISPOSE OF PRESCRIPTION [...] Call your local pharmacy or go to http://bit.Metagenics/9D7Ll7n to find one close to you.3.Make use of household items: Use cat litter or old coffee grounds to dispose medications if other options are not available. Mix your drugs with these household products, seal them in an airtight container and throw it into the garbage. Call [facility]: [phone] to be sure your drugs can be [...] aware that I should contact my doctor. 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 States she has burning with urination "lots of burning" and "a little" bit of blood. Sched 11/10/23 Dr Ramos [facility] office [facility] 11-03-2023 Miscellaneous Notes Pt called in requesting an appt with Dr Ramos only. States she has burning with urination "lots of burning" and "a little" bit of blood. Sched 11/10/23 Dr Ramos [facility] office documented in this encounter [facility] 10-27-2023 Note . MICRO - Microbiology [...] Locations *1: This test was performed at: [facility], [address] [place] [address], [address] , Replaced by [facility] ([place]) 10-25-2023 Telephone encounter Note Done Meredith Van [facility] 10-25-2023 Miscellaneous Notes Done Meredith Van Name of caller: Surinder Jaindler Contact phone number: [phone] Relationship to Patient: patient Provider: Eugenio Barrett CNP Practice: [facility]rology [facility] location Chief Complaint/Reason for Call: 10/25/23 Pt called at 07:17 AM pt not feeling well pt cx appt would like a call back to r/s appt Best time of day caller can be reached: AM Patient advised that office/PCP has 24-48 business hours to return their call: Yes documented in this encounter [facility] 10-25-2023 Telephone encounter Note Name of caller: Surinder Kathya Contact phone number: [phone] Relationship to Patient: patient Provider: Eugenio Barrett CNP Practice: [facility]rology [facility] location Chief Complaint/Reason for Call: 10/25/23 Pt called at 07:17 AM pt not feeling well pt cx appt would like a call back to r/s appt Best time of day caller can be reached: AM Patient advised that office/PCP has 24-48 business hours to return their call: Yes [facility] 12-30-2022 Hospital Discharge instructions Additional Instructions Discharge to [facility] 12/30/2022, outpatient physical therapy at [facility]. [facility] Work Phone: 12-29-2022 Discharge summary Note Date/Time December 23, 2022 1:02pm [facility] Medical Records Department [address] [place] [address] Discharge Summary 12/23/22 1300 MR#: [id number] Acct: [id number] Name: SURINDER RASHEED Rep #:[id number] : 1950 72 From: Shant Guevara MD PCP: Dr. Stacey Newberry DO Status:ADM IN Location: [place] [address] Providers Date of Admission: 12/22/22 Primary Care [...] - Lorazepam 0.5mg bid prn, stable chronic terminologist use, GDR not recommended. Medications at Discharge [...] to [facility] 12/23/2022, [facility] PT/OT/ST/SN. Physical Exam Const [...] % (Auto) 52.8, Lymph % (Auto) 34.8, Walsh % (Auto) 10.2 H, Eos % (Auto) [...] to [facility] 12/23/2022, [facility] Health Care PT/OT/ST/SN. Meaningful Use Info Meaningful Use Diagnoses (Choose all that apply): None applicable Discharge Plan Admission Admit Date/Time: 12/22/22 16:12 Primary Reason for Your Visit: Debility. Attending Provider: Shant Guevara Chi Primary Care Provider: Stacey Newberry Instructions Additional Instructions / Restrictions: Discharge to [facility] 12/23/2022, [facility] PT/OT/ST/SN. Discharge Orders/Prescriptions Prescriptions: [...] DO; Dr. Shant Guevara MD ~* Signed [facility] Work Phone: 1(826) 347-548901-26-2023 History and physical note Author Dr. Guevara [facility] December 23, 2022 5:24pm Note Date/Time December 22, 2022 7 :05pm [facility] Medical Records Department [address] [place] [address] History & Physical Exam 12/22/22 190 MR#: [id number] Acct: [id number] Name: SURINDER RASHEED Rep #:[id number] : 1950 72 From: Shant Guevara MD PCP: Dr. Stacey Newberry DO Status:ADM IN Location: TCU [facility] - General General Date of Admission: 12/22/22 Date of Service: 12/22/22 Chief Complaint: Here for rehabilitation. HPI Narrative SURINDER RASHEED, is a 72 Female who presents with followin12/20/2022 Dr. Nicholson performed robot assisted right total knee arthroplasty [facility]. 12/22/2022 Admit to TCU with debility, here for rehabilitation, strengthening, prior to discharge home alone. Her son Colton is present in room during my visit. [facility] Medical History (Updated 12/22/22 @ 19:04 by [...] Vicodin] promethazine AdvReac Other Verified 12/15/22 11:24 Jlczoia-JST-WeQ Reductase AdvReac Pain in Verified 12/15/22 11:24 Inhibitor joints [Vwwsvmm-Tev-Zmv Reductase Inhibitor] Family History Father Heart disease [...] - Lorazepam 0.5mg bid prn, stable chronic terminologist use, GDR not recommended. 12/22/22 1910 <Electronically [...] dementia, anxiety, weight loss, as these are fci problems needing longitudinal assessment rather than what can be managed in SNF. 12/23/221723<Electronically signed by Shant Guevara MD> Cosigner Signature (if applicable): cc: Dr. Stacey Newberry DO; Dr. Shant Guevara MD ~* Signed [facility] Work Phone: 1(213) 433-874401-26-[address] Guevara [facility] December 23, 2022 11:58am Note Date/Time December 23, 2022 1 0:37am [facility] Medical Records Department [address] [place] [address] Progress Note - Pharmacy 12/23/22 1028 MR#: [id number] Acct: [id number] Name: SURINDER RASHEED Rep #:[id number] : 1950 72 From: Yaneth Lindo PCP: Dr. Stacey Newberry DO Status:ADM IN Location: [place] [address]-1 TCU RX Drug Regimen Review Subjective: 72 [...] (Verified 12/15/22 11:24) Other PALPITATIONS, "FELT LIMP" Smjcjyq-KWA-RfI Reductase Inhibitor [Ajysdwu-Jcd-Ayo Reductase Inhibitor] Adverse Reaction (Verified 12/15/22 11:24) [...] 18:00 12/23/22 05:34 Apixaban 2.5 Mg Tablet ([facility]) PO 01/01/23 23:59 2.5 mg BID BRENDA [...] by Shant Guevara MD> CC: ~ Signed [facility] Work Phone: 1(637) 498-294510-28-2022 [facility] Department of Radiology Post Procedure Progress Note Pre-Procedure Diagnosis: [place]ag[place] calculus. Procedure Performed: Left nephroureteral access. PCNL to follow. Anesthesia: MAC per Anesthesia. Local lidocaine. Findings: Large left renal calculus. Outcomes: Successful left percutaneous access. 10 Syrian dual lumen catheter placed into the mid/distal ureter. Estimated Blood Loss: Minimal Immediate Complications: None Final report to follow in Radiology Results. [facility]10-21-2022 History of Present illness Narrative* Nirali Brooks RN - 09/17/2022 10:45 AM EDT Kaushal Escamilla APRN in [facility], shown EKG done in [facility]. . She states no further workup needed. documented in this [facility] Work Phone: [phone]) 445-335710-21-2022 Hospital Discharge instructions* Discharge Instructions* Nirali Brooks [...] call your surgeon. You may use the kiln car repairer parking located at the main entrance on [address] [facility] and take the H elevator to the first floor for same day surgery. Take a left after exiting the elevator and check in at the desk. You may use the parking in the Main deck. Take the level one bridge to the H building and follow the signs for same day surgery. Check in at the desk. [facility] Work Phone: 1(526) 699-180804-18-2022 NoteHNO ID: [id number] Author: Aleida Mitchell APRN.WAREHOUSE WORKER Service: ? Author Type: Nurse Practitioner Type: Progress Notes Filed: 03/15/2022 12:12 PM Note Text: Subjective The history is provided by the patient and a relative. No bilingual speech language pathologist was used. JACQUI Rasheed is a 72 year old female who presents today for CC of allergies reaction to dressing from kidney stone surgery last week. Patient had kidney stones removed last week at [facility] and had large dressing applied. Daughter [...] have confirmed and edited as necessary, the [facility] Review of Systems Constitutional: Negative for [...] which included preparing to see the patient, nion-eh-jmjg patient care, performing a medically appropriate examination, [...] detail warranting prompt ER evaluation. Aleida Mitchell [facility] History of Present illness Narrative* Aleida Mitchell APRN.[facility] - 03/15/2022 11:44 AM EDT Images from the original note were not included. Subjective The history is provided by the patient and a relative. No bilingual speech language pathologist was used. JACQUI Rasheed is a 72 year old female who presents today for CC of allergies reaction to dressing from kidney stone surgery last week. Patient had kidney stones removed last week at [facility] and hadlarge dressing applied. Daughter went [...] have confirmed and edited as necessary, the [facility] Review of Systems Constitutional: Negative for [...] which included preparing to see the patient, suaa-nx-nyvq patient care, performing a medically appropriate examination, [...] evaluation. Aleida Mitchell APRN.CNP [facility] Instructions* Patient Instructions* Aleida Mitchell APRN.CNP - 03/15/2022 11:43 AM EDT Wound Care - Keep the area clean and dry -Clean with soap and water . Apply mupirocin ointment 2 times a day. -Tylenol or Ibuprofen for discomfort -Observe area for signs of infection: redness, warmth, foul odor, drainage or increase in discomfort. Follow up with surgeon as directed documented in this [facility]22 Hospital Discharge instructions* Instructions* Leydi Mancini MD - 03/14/2022 Images from the original note were not included. Ureteral Stent Placement: What to Expect at Home Your Recovery A ureteral (say "moz-PXW-lsg-ul") stent is a thin, hollow tube that [...] your doctor if you can take an hjji-cox-iagbnqc medicine. If you think your pain medicine [...] Where can you learn more? Go to [email or web address] and sign in to your HEXIO account. Enter B869 in the Search Health Information box to learn more about Ureteral Stent Placement: What to Expect at Home. If you do not have an account, please click on the "Sign Up Now" link. Current as of: September 14, 2021 Content Version: 13.2 [employer]. Care instructions adapted under license by [employer]. If you have questions about a medical condition or this instruction, always ask your healthcare professional. [employer] disclaims any warranty or liability for your use of this information. * Attachments The following attachments cannot be sent through Care Everywhere. * Ureteral Stent Placement: Post-op (Burmese) * Kidney Stone (Burmese) documented [facility] this [facility] Work Phone: [phone]) 122-734104-17-2022 Note48 Hour Discharge Summary Note Patient ID: Surinder Rasheed [id number] y.o. 1950 Admit date: 03/12/2022 Discharge date: 03/14/2022 Admitting Physician: Sarath Ramos MD Discharge Physician: Sarath Ramos MD Consults: none Admission Diagnoses: Renal calculus, right [N20.0] Procedure: Right PCNL with antegrade ureteral stent placement Treatment: surgery: As above, see [facility] Pertinent Findings and Labs noted during admission: see [facility] Significant Diagnostic Studies: labs: See [facility] Discharge Diagnoses: Renal calculus, right [N20.0] Discharged [...] Your Medications These medications were sent to [address] [facility] - P [phone] - F [phone] [place] [id number] ? oxyCODONE-acetaminophen 5-325 MG per tablet ? tamsulosin 0.4 MG capsule Disposition: home [facility]04-17-2022 History of Present illness Narrative* Shaun Fierro [...] MD Urology PGY-2 03/14/2022 7:37 AM [employer] Associate Resident with questions Seen and independently evaluated [...] PGY-5 Urology Chief Resident - Please page addiction psychiatrist resident with questions * Adilson Montanez RN - 03/12/2022 3:50 PM EDT Pt arrived to [place] [address]. Attached to transcriptionist and wall O2. VSS. Family updated son Colton via smart call messenger. * Meghan Leavitt RN - 03/12/2022 12:42 PM EDT Pt given ice pack. documented in this [facility] Work Phone: [phone] Evaluation + Plan noteExtracted from: Title:Clinical Document Author:KRISH HARRIS Date:12/28/21 [facility] ADMISSION HISTORY A ND PHYSICIAL CHIEF COMPLAINT: HISTORY OF PRESENT ILLNESS: REVIEW OF SYSTEMS: ACTIVE PROBLEMS: (32) Abnormal EKG (3276375834) Anxiety (92850642) Arthritis (1878973) BMI 32.0-32.9,adult (103476736) Chronic prescription benzodiazepine use (299794886) Dental decay (624716386) Gait instability (50592910) Grade I diastolic dysfunction (7719729) Hematuria (488901173) Hiatal hernia ([id number]) HLD (hyperlipidemia) (12912949) HTN (hypertension) (9848201806) Hypothyroidism (80261023) Insomnia (217557620) Irritable bowel syndrome with constipation and diarrhea (70543930) IT band syndrome (7753459389) Knee osteoarthritis (432188470) Left atrial hypertrophy (1664184334) Leg swelling (6601951899) LVH (left ventricular hypertrophy) (16672782) Microalbuminuria (109682064) Microscopic hematuria (000781474) Noncompliance (1984923115) Obese (1525102881) Obesity (9679503285) Osteoarthritis (2188379599) Pain of left calf (076269272) Preop examination (142946594) Pulmonary hypertension (001181942) Statin intolerance (0100822043) Valvular insufficiency (59589843) Vitamin D deficiency (90745446) MEDICATIONS: Active Inpt Meds: Lactated Ringers Infusion [...] FAMILY HISTORY: SOCIAL HISTORY: PHYSICAL EXAM: VITALS: EbceksGisxPGUqpkcNLIfI5WGI2YdkdWd(kg) 12/28 07:5936.5147/59672580TF55/31 80.3 24 Hr Tmax: 36.5 at 12/28 [...] Profile 12/25/21 * Microalbumin Level Urine 12/25/21 [facility] 01-31-2022 Hospital Discharge instructions Patient Education 12/28/2021 10:15:34 Nausea and Vomiting, Adult, Ymge-vx-Gyag Nausea and Vomiting, Adult Nausea is feeling [...] fruit juice). ?Low-calorie sports drinks. Eat bland, vdle-xt-dzrxbj foods in small amounts as you are able, such as: ?Bananas. ?Applesauce. ?Rice. ?Low-fat (lean) meats. ?Inger. ?Crackers. Avoid drinking fluids that have a lot of sugar or caffeine in them. This includes energy drinks, sports drinks, and soda. Avoid alcohol. Avoid spicy or fatty foods. General instructions Take xjkg-mqu-lwrtjil and prescription medicines only as told by your doctor. Drink enough fluid to keep your pee (urine) pale yellow. Wash your hands often with soap and water. If you cannot use soap and water, use hand tv host. Make sure that all people in your [...] too much water in your body. Take vsor-wmi-yfvigyp and prescription medicines only as told by [...] 05/02/2009 Document Revised: 03/07/2020 Document Reviewed: 04/24/2019 [employer] Patient Education 2020 [employer]. 12/28/2021 10:15:26 Monitored Anesthesia Care, Care After [...] before eating solid foods. General instructions Take eess-uwh-xarucms and prescription medicines only as told by [...] 03/06/2017 Document Revised: 02/12/2019 Document Reviewed: 03/06/2017 [employer] Patient Education 2020 [employer]. Follow Up Care 12/22/2021 14:22:41 With:KRISH HARRIS MD Address: [phone] When: Unknown Comments:Call to reschedule colonoscopy in 1 week [facility] 01-13-2022 Hospital Discharge instructions Patient Education 12/10/2021 [...] cramping, and pain worse. If taking medicines: Utye-cae-evzbkte nausea and diarrhea medicines are generally OK [...] with soap and water and using alcohol-based tv host is the best way to prevent the [...] Keep uncooked meats away from cooked and qvtbn-ew-pnj foods. Use a food thermometer when cooking. [...] or as directed by your healthcare provider [phone] [employer]. [address] [place] [address]. All rights reserved. This information is not intended as a substitute for professional medical care. Always follow yourhealthcare professional's instructions. Follow Up Care 12/10/2021 11:18:40 With:KRISH HARRIS MD Address: [phone] When: Unknown Comments:Call today for instructions. [facility] 12-13-2021 Hospital Discharge instructions Patient Education 11/09/2021 [...] If needed, more treatment may be started. 0813-1550 [employer]. [address] [place] [address], [place] [address]. All rights reserved. This information is not intended as a substitute for professional medical care. Always follow yourhealthcare professional's instructions. Follow Up Care 11/09/2021 14:29:31 With:Your urologist Address: When:2-4 days only if needed With:Go to emergency room if symptoms worsen Address:Unknown When:2-4 days [facility] Chaseazael Grayson 12-05-2021 Hospital Discharge instructions [...] cramping, and pain worse. If taking medicines: Flga-wjp-yrpxjzf nausea and diarrhea medicines are generally OK [...] with soap and water and using alcohol-based tv host is the best way to prevent the [...] Keep uncooked meats away from cooked and trrkd-xq-wpf foods. Use a food thermometer when cooking. [...] or as directed by your healthcare provider [phone] [employer]. [address] [place] [address]. All rights reserved. This information is not intended as a substitute for professional medical care. Always follow yourhealthcare professional's instructions. Follow Up Care 11/01/2021 06:59:33 With:STACEY NEWBERRY Address: [address] [facility] [place] [address]- [phone] Business (1) When:1-2 days Comments:Return to ED if symptoms worsen [facility] 12-03-2021 Hospital Discharge instructions Patient Education 10/30/2021 [...] cramping, and pain worse. If taking medicines: Kewd-jfe-ytrxmac nausea and diarrhea medicines are generally OK [...] with soap and water and using alcohol-based tv host is the best way to prevent the [...] Keep uncooked meats away from cooked and tutnp-uo-tzd foods. Use a food thermometer when cooking. [...] or as directed by your healthcare provider [phone] [employer]. [address] [place] [address]. All rights reserved. This information is not intended as a substitute for professional medical care. Always follow yourhealthcare professional's instructions. Follow Up Care 10/30/2021 18:54:38 With:STACEY NEWBERRY Address: [address] [facility] [place] [address]- [phone] Business (1) When:2-4 days Comments:Stop taking MiraLAX for now, be sure to drink plenty of oral fluids. You may try Lomotil as well. Follow-up closely with your doctor. [facility] 10-19-2021 Evaluation + Plan note Future Scheduled Tests Laboratory* Stool for Occult Blood (Lab) 09/15/21 * Thyroid Stimulating Hormone 12/25/21 * Thyroid Stimulating Hormone 03/09/22 * Free T4 03/09/22 * Urine Culture 07/30/21 * Urine Culture 01/28/22 * Complete Blood Count 12/25/21 * Complete Blood Count 11/18/21 * Free T3 03/09/22 * Microalbumin Level Urine 12/25/21 [facility] Evaluation + Plan note Future Appointments Appointment Date:10/26/2021 01:30:00 PM Scheduled Provider: Location:[facility] Appointment Type:PT Outpatient Evaluation Appointment Date:11/10/2021 01:00:00 PM Scheduled Provider:STACEY NEWBERRY DO Location:[facility] Appointment Type:PC OV Future Scheduled Tests Laboratory* Stool for Occult Blood (Lab) 09/15/21 * Urine Culture 07/30/21 * Urine Culture 05/01/21 [facility] Evaluation + Plan note Future Appointments Appointment Date:10/05/2021 10:30:00 AM Scheduled Provider: Location:[facility] Appointment Type:CT Knee w/o Contrast Right Appointment Date:11/10/2021 01:00:00 PM Scheduled Provider:STACEY NEWBERRY DO Location:[facility] Appointment Type: OV Future Scheduled Tests Laboratory* Stool for Occult Blood (Lab) 09/15/21 * Urine Culture 07/30/21 * Urine Culture 05/01/21 Radiology* CT Knee w/o Contrast Right 10/05/21 [facility] Evaluation + Plan note Future Appointments Appointment Date:12/14/2021 01:00:00 PM Scheduled Provider:STACEY NEWBERRY DO Location:[facility] Appointment Type:PC OV Future Scheduled Tests Laboratory* Stool for Occult Blood (Lab) 09/15/21 * Urine Culture 07/30/21 * Urine Culture 05/01/21 [facility] Evaluation + Plan note Future Appointments Appointment Date:12/14/2021 01:00:00 PM Scheduled Provider:STACEY NEWBERRY DO Location:[facility] Appointment Type:PC OV Diagnostic Tests Pending * Stool Culture 11/01/21 * Shiga Toxins 1 and 2 11/01/21 * Urine Culture 11/01/21 Future Scheduled Tests Laboratory* Stool for Occult Blood (Lab) 09/15/21 * Urine Culture 07/30/21 * Urine Culture 05/01/21 [facility] Evaluation + Plan note Future Appointments Appointment Date:12/14/2021 01:00:00 PM Scheduled Provider:STACEY NEWBERRY DO Location:[facility] Appointment Type:PC OV Future Scheduled Tests Laboratory* Stool for Occult Blood (Lab) 09/15/21 * Urine Culture 07/30/21 * Urine Culture 05/01/21 * Complete Blood Count 11/18/21 [facility] Evaluation + Plan note Future Appointments Appointment Date:02/22/2022 09:30:00 AM Scheduled Provider:STACEY NEWBERRY DO Location:[facility] Appointment Type:PC OV Future Scheduled Tests Laboratory* Stool for Occult Blood (Lab) 09/15/21 * Thyroid Stimulating Hormone 12/25/21 * Urine Culture 07/30/21 * Urine Culture 05/01/21 * Complete Blood Count 12/25/21 * Complete Blood Count 11/18/21 * Microalbumin Level Urine 12/25/21 [facility] Evaluation + Plan note Future Appointments Appointment Date:02/22/2022 09:30:00 AM Scheduled Provider:STACEY NEWBERRY DO Location:[facility] Appointment Type:PC OV Future Scheduled Tests Laboratory* Stool for Occult Blood (Lab) 09/15/21 * Thyroid Stimulating Hormone 12/25/21 * Thyroid Stimulating Hormone 03/09/22 * Free T4 03/09/22 * Urine Culture 07/30/21 * Urine Culture 01/28/22 * Urine Culture 05/01/21 * Complete Blood Count 12/25/21 * Complete Blood Count 11/18/21 * Free T3 03/09/22 * Microalbumin Level Urine 12/25/21 [facility] Evaluation + Plan note Future Appointments Appointment Date:04/06/2022 11:45:00 AM Scheduled Provider:STACEY NEWBERRY DO Location:[facility] Appointment Type:PC OV Future Scheduled Tests Laboratory* Stool for Occult Blood (Lab) 09/15/21 * Thyroid Stimulating Hormone 12/25/21 * Thyroid Stimulating Hormone 03/09/22 * Free T4 03/09/22 * Urine Culture 07/30/21 * Urine Culture 01/28/22 * Urine Culture 05/01/21 * Complete Blood Count 12/25/21 * Complete Blood Count 11/18/21 * Free T3 03/09/22 * Microalbumin Level Urine 12/25/21 [facility] Evaluation + Plan note Future Appointments Appointment Date:09/28/2022 08:30:00 AM Scheduled Provider:STACEY NEWBERRY DO Location:[facility] Appointment Type:PC OV Controlled Medication Future Scheduled Tests Laboratory* Stool for Occult Blood (Lab) 09/15/21 * Thyroid Stimulating Hormone 12/25/21 * Thyroid Stimulating Hormone 03/09/22 * Free T4 03/09/22 * Urine Culture 07/30/21 * Urine Culture 01/28/22 * Complete Blood Count 12/25/21 * Complete Blood Count 11/18/21 * Free T3 03/09/22 * Microalbumin Level Urine 12/25/21 [facility] Evaluation + Plan note Future Appointments Appointment Date:09/28/2022 08:30:00 AM Scheduled Provider:STACEY NEWBERRY DO Location:[facility] Appointment Type:PC OV Controlled Medication Future Scheduled Tests Laboratory* Stool for Occult Blood (Lab) 09/15/21 * Thyroid Stimulating Hormone 12/25/21 * Thyroid Stimulating Hormone 03/09/22 * Free T4 03/09/22 * Urine Culture 01/28/22 * Complete Blood Count 12/25/21 * Complete Blood Count 11/18/21 * Free T3 03/09/22 * Microalbumin Level Urine 12/25/21 [facility] Evaluation + Plan note Future Appointments Appointment Date:02/15/2023 11:00:00 AM Scheduled Provider:STACEY NEWBERRY DO Location:[facility] Appointment Type:PC OV Future Scheduled Tests Laboratory* Urinalysis 02/06/23 * Thyroid Stimulating Hormone 02/06/23 * Thyroid Stimulating Hormone 03/09/22 * Free T4 02/06/23 * Free T4 03/09/22 * A1C Hemoglobin 02/06/23 * Complete Blood Count 02/06/23 * Free T3 03/09/22 * Lipid Profile 02/06/23 * Complete Metabolic Panel 02/06/23 * MISC Lab Send out (Blood Specimens) 02/06/23 [facility] Evaluation + Plan note Future Appointments Appointment Date:06/07/2023 09:30:00 AM Scheduled Provider:STACEY NEWBERRY DO Location:[facility] Appointment Type:[facility] Future Scheduled Tests Laboratory* Thyroid Stimulating Hormone 03/09/22 * Free T4 03/09/22 * Free T3 03/09/22 * MISC Lab Send out (Blood Specimens) 02/15/23 [facility] Evaluation + Plan note Future Appointments Appointment Date:11/15/2023 09:30:00 AM Scheduled Provider:STACEY NEWBERRY DO Location:[facility] Appointment Type:PC Wellness Medicare Future Scheduled Tests Laboratory* Thyroid Stimulating Hormone 07/05/23 * Free T4 07/05/23 * Complete Blood Count 06/07/23 * MISC Lab Send out (Blood Specimens) 02/15/23 [facility] Gaatualuation + Plan note Future Appointments Appointment Date:11/15/2023 09:30:00 AM Scheduled Provider:STACEY NEWBERRY DO Location:[facility] Appointment Type:PC Wellness Medicare Future Scheduled Tests Laboratory* Thyroid Stimulating Hormone 07/05/23 * Free T4 07/05/23 * Complete Blood Count 06/07/23 * MISC Lab Send out (Blood Specimens) 02/15/23 Radiology* CT Abdomen and Pelvis w/o contrast 11/03/23 [facility] evaluation + Plan note Future Appointments Appointment Date:11/08/2023 01:00:00 PM Scheduled Provider: Location:[facility] Appointment Type:CT Abdomen and Pelvis w/o Contrast Appointment Date:11/15/2023 09:30:00 AM Scheduled Provider:STACEY NEWBERRY DO Location:[facility] Appointment Type:PC Wellness Medicare Diagnostic Tests Pending * Urine Culture 11/07/23 Future Scheduled Tests Laboratory* Thyroid Stimulating Hormone 07/05/23 * Free T4 07/05/23 * Complete Blood Count 06/07/23 * [facility] [place] Send out (Blood Specimens) 02/15/23 Radiology* CT Abdomen and Pelvis w/o contrast 11/08/23 [facility] Evaluation + Plan note Future Appointments Appointment Date:12/23/2023 08:45:00 AM Scheduled Provider: Location:[facility] Appointment Type:PC Nurse Lab Appointment Date:01/06/2024 10:30:00 AM Scheduled Provider:STACEY NEWBERRY DO Location:[facility] Appointment Type:PC OV Future Scheduled Tests [...] 11/15/23 * Complete Metabolic Panel 11/15/23 * [facility] [place] (Blood Specimens) 02/15/23 Radiology* BD Bone Density DEXA Axial Skeleton 11/15/23 * MRI Brain w/o Contrast 11/15/23 [facility] Evaluation + Plan note Future Appointments Appointment Date:12/23/2023 08:45:00 AM Scheduled Provider: Location:[facility] Appointment Type:PC Nurse Lab Appointment Date:01/06/2024 10:30:00 AM Scheduled Provider:STACEY NEWBERRY DO Location:[facility] Appointment Type: OV Diagnostic Tests Pending * [...] 11/15/23 * Complete Metabolic Panel 11/15/23 * [facility] [place] (Blood Specimens) 02/15/23 Radiology* BD Bone Density DEXA Axial Skeleton 11/15/23 * MRI Brain w/o Contrast 11/15/23 [facility] Evaluation + Plan note Future Appointments Appointment Date:03/23/2024 01:30:00 PM Scheduled Provider:STACEY NEWBERRY DO [facility] Appointment Type:PC OV Future Scheduled Tests Radiology* BD Bone Density DEXA Axial Skeleton 11/15/23 * MRI Brain w/o Contrast 01/13/24 [facility] Evaluation + Plan note Future Appointments Appointment Date:03/23/2024 01:30:00 PM Scheduled Provider:STACEY NEWBERRY DO Location:[facility] Appointment Type:PC OV Future Scheduled Tests Radiology* BD Bone Density DEXA Axial Skeleton 11/15/23 [facility] Evaluation + Plan note Future Appointments Appointment Date:01/13/2024 01:30:00 PM Scheduled Provider:STACEY NEWBERRY DO [facility] Appointment Type:PC OV Future Scheduled Tests Laboratory* Pathology Flow Cytometry Request 12/21/23 Radiology* BD Bone Density DEXA Axial Skeleton 11/15/23 * MRI Brain w/o Contrast 11/15/23 [facility] Evaluation + Plan note Future Appointments Appointment Date:11/15/2023 09:30:00 AM Scheduled Provider:STACEY NEWBERRY DO Location:[facility] Appointment Type: Wellness Medicare Diagnostic Tests Pending * Urine Culture 11/12/23 Future Scheduled Tests Laboratory* Thyroid Stimulating Hormone 07/05/23 * Free T4 07/05/23 * Complete Blood Count 06/07/23 * [facility] [place] (Blood Specimens) 02/15/23 [facility] Evaluation note* Diagnosis Renal calculus, right- Primary Calculus of kidney documented in this encounter [facility] Work Phone: Evaluation note* Diagnosis Allergic reaction, initial encounter- Primary [facility] Diagnosis Renal calculi Calculus of kidney [...] post total right knee replacement acute Hypertension [facility] Work Phone: Evaluation note* Diagnosis Renal calculus, left Calculus of kidney documented in this encounter [facility]* Diagnosis Right kidney stone- Primary Burning with urination Dysuria [facility]* Diagnosis Right kidney stone- Primary Hydronephrosis, right Hydronephrosis documented [facility] this encounter [facility]* Diagnosis Right kidney stone Hydronephrosis, right Hydronephrosis Calculus of kidney documented in this encounter [facility]* Diagnosis UPJ obstruction, acquired documented in this encounter [facility]* Diagnosis Right kidney stone- Primary UPJ obstruction, acquired [facility] Diagnosis Right kidney stone UPJ obstruction, acquired [facility] Diagnosis Right kidney stone- Primary documented in this encounter [facility]* Diagnosis Right kidney stone- Primary documented in this encounter [facility]* Diagnosis Urinary tract infection without hematuria, site unspecified- Primary Renal calculus Calculus of kidney documented in this encounter [facility]* Diagnosis Right kidney stone Renal calculus Calculus of kidney documented [facility] this [facility] noteNo assessment information availableWSt. Mary's Medical Center Work Phone: Evaluation note* Diagnosis Nephrolithiasis- Primary Calculus of kidney documented in this encounter [facility] course Narrative No data available for this section [facility] Discharge instructions No data available for this section [facility] Discharge instructions* Attachments The following attachments cannot be sent through Care Everywhere. * Laser Lithotripsy for Kidney Stones Discharge Instructions (Burmese) * Ureteral Stent Discharge Instructions (Burmese) [facility] No data available for this section [facility] Reason for referral (narrative)No reason for referral information availableWSt. Mary's Medical Center Work Phone: Reason for visit Narrative* Imaging (Routine) - Closed Specialty Diagnoses / Procedures Referred By Eli carver Referred To Contact Radiology Diagnoses Right kidney stone UPJ obstruction, acquired Procedures CT abdomen pelvis wo IV contrast Sarath Ramos MD [address] [address] Phone: tel: fax: Referral ID Status Reason Start Date Expiration Date Visits Re quested Visits Authorized [id number] Closed 02/14/2024 02/13/2025 1 1 [facility] for visit Narrative* Auth/Cert (Routine) Specialty Diagnoses / Procedures Referred By Eli carver Referred To Contact Diagnoses Renal calculus Procedures VT CYSTO BLADDER W/URETERAL CATHETERIZATION VT CYSTO W/URETEROSCOPY W/LITHOTRIPSY VT CYSTO W/INSERT URETERAL STENT CYSTOSCOPY, WITH RETROGRADE PYELOGRAM RIGHT URETEROSCOPY WITH HOLIUM LASER LITHOTRIPSY RIGHT URETERAL STENT PLACEMENT Sarath Ramos MD [address] [address] Phone: tel: fax: Referral ID Status Reason Start Date Expiration Date Visits Re quested Visits Authorized [id number] 02/07/2025 1 1 [facility] note* CASSIDY Dwyer: PERFORM Event Display: Patient Summary Documents Authored Date: [id number] [facility] Advance Directives No Advanced Directives Records FoundDocuments on File Type Date Recorded 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 No December 28, 2024 5:54pm Advance Directives [...] knee replacement Hypertension Chief Complaint Admit Date [facility] December 03, 2024 5:00am [facility] December 10, 2024 10:30am LABWORK December 14, 2024 5 :00am fall, head injury December 28, 2024 2 :36pm [facility] February 04, 2025 5 :00am [facility] February 25, 2025 4 :00am Reason for Referral Specialty Diagnoses / Procedures Referred By Contac t Referred To Contact Radiology Diagnoses Right kidney stone UPJ obstruction, acquired Procedures CT abdomen pelvis wo IV contrast Sarath Ramos MD [address] [place] [address] Referral ID Status Reason Start Date Expiration Date V isits Requested Visits Authorized [id number] Pending Review 02/14/2024 02/13/2025 1 1 Specialty Diagnoses / Procedures Referred By Contac t Referred To Contact Radiology Diagnoses UPJ obstruction, acquired Procedures NM kidney flow/function w/wo lasix Sarath Ramos MD [address] [place] [address] Referral ID Status Reason Start Date Expiration Date V isits Requested Visits Authorized [id number] Authorized 01/06/2024 01/05/2025 3 3 Specialty Diagnoses / Procedures Referred By Contac t Referred To Contact Abelardo Fritz MD [address] [place] [address] Referral ID Status Reason Start Date Expiration Date V isits Requested Visits Authorized [id number] Pending Review 1 1 Specialty Diagnoses / Procedures Referred By Contac t Referred To Contact Melody Vega MD [address] [place] [address] Referral ID Status Reason Start Date Expiration Date V isits Requested Visits Authorized [id number] Pending Review 1 1 Additional Source Comments [...] mL IVPB (premix) (COMPLETED) 2,000 mg, IntraVENous, ART GLASS SETTER TO O.R., 1 dose, On Tue03/12/22 at [...] - Provid er: Mira Tobin APRN - COMBINATION PRESSER - Comment: pso) famotidine (Pepcid) tablet 20 [...] 1433 (Given - Provid er: Monica Briones, RESERVATIONS CLERK - COMBINATION PRESSER) famotidine (Pepcid) tablet 20 mg (COMPLETED)(Linked Group [...] (New Bag - Prov ider: ALONDRA Ballard COMBINATION PRESSER)1505 (Anesthesia Volume Adjustment - Provider: ALONDRA Bryant [...] Care Teams (unrecognized sec tion and content) Lawyer Probate Relationship Specialty Start Date End Date Stacey Newberry DO [address] [place] [address] PCP - General 01/25/22 Lawyer Probate Relationship Specialty Start Date End Date Stacey Newberry IV, MD [address] [place] [address] PCP - General Family Practice 03/15/22 Lawyer Probate Relationship Specialty Start Date End Date Stacey Newberry DO [address] [place] [address] PCP - General 01/25/22 Lawyer Probate Relationship Specialty Start Date End Date Stacey Newberry DO [address] [place] [address] PCP - General 01/25/22 Team Status: Active Member Role Status Dates Dr. Yoan Leavitt , Family Provider Active Dr. Stacey Newberry DO Primary Care Provider Active Team Status: Inactive Member Role Status Dates Dr. Stacey Newberry DO Primary Care Provider, Referrin g Provider Active Meredith Alva PROSPECTING DRILLER, PROSPECTING DRILLER-C Attending Provider Active Team Status: Inactive Member Role Status Dates Dr. Stacey Newberry DO Primary Care Provider Active Dr. Shant Guevara MD Admit Provider, Attending Provid er Active Lawyer Probate Relationship Specialty Start Date End Date Stacey Newberry DO [address] [place] [address] PCP - General 01/25/22 Tamra Lind DO [address] [place] [address] Surgeon Urology 09/25/22 Sarath Ramos MD [address] [place] [address] Surgeon Urology 09/29/22 Elie Umana MD [address] [place] [phone] Surgeon Urology 10/25/22 Lawyer Probate Relationship Specialty Start Date End Date Stacey Newberry DO [address] [place] [address] PCP - General 01/25/22 Tamra Lind DO [address] [place] [address] Surgeon Urology 09/25/22 Sarath Ramos MD [address] [place] [address] Surgeon Urology 09/29/22 Elie Umana MD [address] [place] [address] Surgeon Urology 10/25/22 Lawyer Probate Relationship Specialty Start Date End Date Stacey Newberry DO [address] [place] [address] PCP - General 01/25/22 Tamra Lind DO [address] [place] [address] Surgeon Urology 09/25/22 Sarath Ramos MD [address] [place] [address] Surgeon Urology 09/29/22 Elie Umana MD [address] [place] [phone] Surgeon Urology 10/25/22 Lawyer Probate Relationship Specialty Start Date End Date Stacey Newberry DO [address] [place] [address] PCP - General 01/25/22 Tamra Lind DO [address] [place] [address] Surgeon Urology 09/25/22 Sarath Ramos MD [address] [place] [address] Surgeon Urology 09/29/22 Elie Umana MD [address] [place] [address] Surgeon Urology 10/25/22 Lawyer Probate Relationship Specialty Start Date End Date Stacey Newberry DO [address] [place] [address] PCP - General 01/25/22 Tamra Lind DO [address] [place] [address] Surgeon Urology 09/25/22 Sarath Ramos MD [address] [place] [address] Surgeon Urology 09/29/22 Elie Umana MD [address] [place] [address] Surgeon Urology 10/25/22 Lawyer Probate Relationship Specialty Start Date End Date Stacey Newberry DO [address] [place] [address] PCP - General 01/25/22 Tamra Lind DO [address] [place] [address] Surgeon Urology 09/25/22 Sarath Ramos MD [address] [place] [address] Surgeon Urology 09/29/22 Elie Umana MD [address] [place] [address] Surgeon Urology 10/25/22 Lawyer Probate Relationship Specialty Start Date End Date Stacey Newberry DO [address] [place] [address] PCP - General 01/25/22 Tamra Lind DO [address] [place] [address] Surgeon Urology 09/25/22 Sarath Ramos MD [address] [place] [address] Surgeon Urology 09/29/22 Elie Umana MD [address] [place] [address] Surgeon Urology 10/25/22 Lawyer Probate Relationship Specialty Start Date End Date Stacey Newberry [address] [place] [address] PCP - General 01/25/22 Tamra Lind DO [address] [place] [address] Surgeon Urology 09/25/22 Sarath Ramos MD [address] [place] [address] Surgeon Urology 09/29/22 Elie Umana MD [address] [place] [address] Surgeon Urology 10/25/22 Lawyer Probate Relationship Specialty Start Date End Date Stacey Newberry DO [address] [place] [address] PCP - General 01/25/22 Tamra Lind DO [address] [place] [address] Surgeon Urology 09/25/22 Sarath Ramos MD [address] [place] [address] Surgeon Urology 09/29/22 Elie Umana MD [address] [place] [address] Surgeon Urology 10/25/22 Lawyer Probate Relationship Specialty Start Date End Date Stacey Newberry DO [address] [place] [address] PCP - General 01/25/22 Tamra Lind DO [address] [place] [address] Surgeon Urology 09/25/22 Sarath Ramos MD [address] [place] [address] Surgeon Urology 09/29/22 Elie Umana MD [address] [place] [address] Surgeon Urology 10/25/22 Lawyer Probate Relationship Specialty Start Date End Date Stacey Newberry DO [address] [place] [address] PCP - General 01/25/22 Tamra Lind DO [address] [place] [address] Surgeon Urology 09/25/22 Sarath Ramos MD [address] [place] [address] Surgeon Urology 09/29/22 Elie Umana MD [address] [place] [phone] Surgeon Urology 10/25/22 Lawyer Probate Relationship Specialty Start Date End Date Stacey Newberry DO [address] [place] [address] PCP - General 01/25/22 Tamra Lind DO [address] [place] [address] Surgeon Urology 09/25/22 Sarath Ramos MD [address] [place] [address] Surgeon Urology 09/29/22 Elie Umana MD [address] [place] [address] Surgeon Urology 10/25/22 Lawyer Probate Relationship Specialty Start Date End Date Stacey Newberry DO [address] [place] [address] PCP - General 01/25/22 Tamra Lind DO [address] [place] [address] Surgeon Urology 09/25/22 Sarath Ramos MD [address] [place] [address] Surgeon Urology 09/29/22 Elie Umana MD [address] [place] [phone] Surgeon Urology 10/25/22 Lawyer Probate Relationship Specialty Start Date End Date Stacey Newberry DO [address] [place] [address] PCP - General 01/25/22 Tamra Lind DO [address] [place] [address] Surgeon Urology 09/25/22 Sarath Ramos MD [address] [place] [address] Surgeon Urology 09/29/22 Elie Umana MD [address] [place] [address] Surgeon Urology 10/25/22 Lawyer Probate Relationship Specialty Start Date End Date Stacey Newberry DO [address] [place] [address] PCP - General 01/25/22 Tamra Lind DO [address] [place] [address] Surgeon Urology 09/25/22 Sarath Ramos MD [address] [place] [address] Surgeon Urology 09/29/22 Elie Umana MD [address] [place] [address] Surgeon Urology 10/25/22 Lawyer Probate Relationship Specialty Start Date End Date Stacey Newberry [address] [place] [address] [facility] - General 01/25/22 Tamra Lind DO [address] [place] [address] Surgeon Urology 09/25/22 Sarath Ramos MD [address] [place] [address] Surgeon Urology 09/29/22 Elie Umana MD [address] [place] [phone] Surgeon Urology 10/25/22 Lawyer Probate Relationship Specialty Start Date End Date Tamra Lind DO [address] [place] [address] Surgeon Urology 09/25/22 Sarath Ramos MD [address] [place] [address] Surgeon Urology 09/29/22 Elie Umana MD [address] [place] [phone] Surgeon Urology 10/25/22 Lawyer Probate Relationship Specialty Start Date End Date Tamra Lind DO [address] [place] [address] Surgeon Urology 09/25/22 Sarath Ramos MD [address] [place] [address] Surgeon Urology 09/29/22 Elie Umana MD [address] [place] [phone] Surgeon Urology 10/25/22 Lawyer Probate Relationship Specialty Start Date End Date Tamra Lind DO [address] [place] [address] Surgeon Urology 09/25/22 Sarath Ramos MD [address] [place] [address] Surgeon Urology 09/29/22 Elie Umana MD [address] [place] [phone] Surgeon Urology 10/25/22 Shaun Eastman MD [address] [place] [address] Urology 02/22/25 Team Status: Active Member Role [...] February 04, 2025 End: February 04, 2025 Lawyer Probate Relationship Specialty Start Date End Date Tamra Lind DO [address] [place] [address] Surgeon Urology 09/25/22 Sarath Ramos MD [address] [place] [address] Surgeon Urology 09/29/22 Elie Umana MD [address] [place] [address]14[address] Surgeon Urology 10/25/22 Shaun Eastman MD [address] [place] [address] Urology 02/22/25 Lawyer Probate Relationship Specialty Start Date End Date Tamra Lind DO [address] [place] [address] Surgeon Urology 09/25/22 Sarath Ramos MD [address] [place] [address] Surgeon Urology 09/29/22 Elie Umana MD [address] [place] [phone] Surgeon Urology 10/25/22 Shaun Eastman MD [address] [place] [address] Urology 02/22/25 Source Comments (unrecognize d section and content) In the event this informatio n is protected by the Federal Confidentiality of Alcohol and Drug Abuse Patient Records regulations: The Federal rules restrict any use of the information to criminally investigate or prosecute any alcohol or drug abuse patient.[facility] Reason for Visit (unrecogniz ed section and [...] of kidney Calculus of kidney [N20.0] Procedures VT CYSTO BLADDER W/URETERAL CATHETERIZATION VT CYSTO W/URETEROSCOPY W/LITHOTRIPSY VT CYSTO W/INSERT URETERAL STENT VT CYSTO MANJ W/O RMVL URETERAL STONE CYSTOSCOPY RETROGRADE PYELOGRAMS, RIGHT URETEROSCOPY, HOLMIUM LASER LITHOTRIPSY, STONE BASKET EXTRACTION, RIGHT STENT PLACEMENT CYSTOSCOPY WITH URETEROSCOPY AND OR PYELOSCOPY WITH REMOVAL OR MANIPULATION CALCULUS WITH LITHOTRIPSY CYSTOSCOPY WITH INSERTION URETERAL STENT CYSTOURETHROSCOPY WITH MANIPULATION, WITHOUT REMOVAL OF URETERAL CALCULUS Sarath Ramos MD [address] [place] [address] [facility] [address] [place] [address] Referral ID Status Reason Start Date Expiration Date Visits Re quested Visits Authorized [id number] 1 1 Specialty Diagnoses / Procedures Referred By Eli carver Referred To Contact Diagnoses Calculus of kidney Calculus of kidney [N20.0] Procedures VT CYSTO BLADDER W/URETERAL CATHETERIZATION VT CYSTO W/URETEROSCOPY W/LITHOTRIPSY VT CYSTO W/INSERT URETERAL STENT CYSTOSCOPY AND PYELOGRAM, RIGHT URETEROSCOPY HOLMIUM LASER LITHOTRIPSY, RIGHT URETERAL STENT REMOVAL CYSTOSCOPY WITH URETEROSCOPY AND OR PYELOSCOPY WITH REMOVAL OR MANIPULATION CALCULUS WITH LITHOTRIPSY CYSTOSCOPY WITH INSERTION URETERAL STENT Sarath Ramos MD [address] [place] [address] [facility] [address] [place] [address] Referral ID Status Reason Start Date Expiration Date Visits Re quested Visits Authorized [id number] 1 1 Specialty Diagnoses / Procedures Referred By Contac t Referred To Contact Radiology Diagnoses UPJ obstruction, acquired Procedures NM kidney flow/function w/wo Sarath Fontanez MD [address] [place] [address] Referral ID Status Reason Start Date Expiration Date V isits Requested Visits Authorized [id number] Authorized 01/06/2024 01/05/2025 3 3 Reason Comments [...] section and content) DATE CREATED AUTHOR 03/16/2022 [facility] DATE CREATED AUTHOR AUTHOR'S ORGANIZ ATION 07/21/2022 [facility] DATE CREATED AUTHOR AUTHOR'S ORGANIZ ATION 09/25/2022 [facility] DATE CREATED AUTHOR AUTHOR'S ORGANIZ ATION 03/30/2024 [facility] DATE CREATED AUTHOR AUTHOR'S ORGANIZ ATION 03/07/2025 [facility] DATE CREATED AUTHOR AUTHOR'S ORGANIZ ATION 09/29/2025 [facility] Care Team (unrecognized sect ion and content) Care Team Personnel Name: Juan Pablo Thomson Clerfernandez Rocha PT Position: P3 Scheduling - Labor Commissioner Advanced Member Role: Other Name: LYNETTE FARIAS MD Member Role: Mycology Teacher Address: Address: [facility] [address] [place] [address]- Name: RADHA SHOEMAKER DO Position: P3 Physician - Orthopedics Med Service: Active Provider Member Role: Orthopaedist Address: Address: [facility] [address] [place] [address]- Name: STACEY NEWBERRY DO Position: P4 Physician - Primary Care Med Service: Active Provider Member Role: Primary Care Physician Address: Address: [address] [place] [address]- [place] Name: KRISH HARRIS MD Position: Physician Med Service: Admitting Member Role: Flooring Sales Manager Address: Address: [address] [facility] [address] [place] [address]- [place] Name: YUNIOR RODRIGUEZ MD Member Role: Die Engraver Address: Address: [address] [facility] [address] [place] [address]- [place] Name: Terrance Salazar RN Position: AO RN Member Role: OBGYN Name: TATA SENA MD Member Role: Urologist Address: Address[address] [facility] [address] [place] [address]- [place] Care Team Related Persons Name: SHIDLER, COLTON Name: SHIDLER, COLTON Name: SHIDLER, COLTON Name: SHIDLER, COLTON Name: SHIDLER, COLTON Name: SHIDLER, COLTON Name: SHIDLER, COLTON Name: SHIDLER, COLTON Name: SHIDLER, COLTON Name: SHIDLER, COLTON Name: SHIDLER, COLTON Care Team Personnel Name: [employer] Wind Operations Manager Josefina PT Position: P3 Scheduling - Labor Commissioner Advanced Member Role: Other Name: LYNETTE FARIAS MD Member Role: Mycology Teacher Address: Address: [facility] [address] [facility] [place] [address]- [place] Name: RADHA SHOEMAKER DO Position: P3 Physician - Orthopedics Med Service: Active Provider Member Role: Orthopaedist Address: Address: [facility] [address] [place] [address]- Name: STACEY NEWBERRY DO Position: P4 Physician - Primary Care Med Service: Active Provider Member Role: Primary Care Physician Address: Address: [address] [place] [address]- Name: KRISH HARRIS MD Position: Physician Med Service: Admitting Member Role: Flooring Sales Manager Address: Address: [address] [facility] [address] [place] [address]- [place] Name: YUNIOR RODRIGUEZ MD Member Role: Die Engraver Address: Address: [address] [facility] [address] [address] [place] [address]- Name: Terrance Salazar RN Position: AO RN Member Role: OBGYN Name: TATA SENA MD Member Role: Urologist Address: Address: [address] [facility] [address] [place] [address]- Care Team Related Persons Name: SHIDLER, COLTON Name: SHIDLER, COLTON Name: SHIDLER, COLTON Name: SHIDLER, COLTON Name: SHIDLER, COLTON Name: SHIDLER, COLTON Name: SHIDLER, COLTON Name: SHIDLER, COLTON Name: SHIDLER, COLTON Name: SHIDLER, COLTON Name: SHIDLER, COLTON Care Team Personnel Name: Juan Pablo Thomson Clerfernandez Rocha PT Position: P3 Scheduling - Labor Commissioner Advanced Member Role: Other Name: LYNETTE FARIAS MD Member Role: Mycology Teacher Address: Address: [facility] [address] [facility] [place] [address]- Name: RADHA SHOEMAKER DO Position: P3 Physician - Orthopedics Med Service: Active Provider Member Role: Orthopaedist Address: Address: [facility] [address] [place] [address]- Name: STACEY NEWBERRY DO Position: P4 Physician - Primary Care Med Service: Active Provider Member Role: Primary Care Physician Address: Address: [address] [place] [address]- Name: KRISH HARRIS MD Position: Physician Med Service: Admitting Member Role: Flooring Sales Manager Address: Address: [address] [place] [address]- Name: YUNIOR RODRIGUEZ MD Member Role: Die Engraver Address: Address: [address] [facility] [address] [place] [address]- [place] Name: Terrance Salazar RN Position: AO RN Member Role: OBGYN Name: TATA SENA MD Member Role: Urologist Address: Address: [address] [facility] [address] [place] [address]- Care Team Related Persons Name: SHIDLER, COLTON [...] BE BASED ON THE PRIMARY CLINICAL RECORDS. [facility] [employer] [facility]. provides no warranty or guarantee of the accuracy or completeness of information in this document.
== END ==
LOC: OLS.SWAL 05:00
PROVIDERS: PCP Internal Medicine; Visit Provider Internal Medicine
DX: E03.9 Hypothyroidism, unspecified (principal)
CPT/HCPCS: 36415; 84443